=== PATIENT | female | born 1955 | race Caucasian/White ===

== ENCOUNTER 2021-12-27 13:24 | Outpatient (CLI) | payer OTHER, BC, SELFPAY ==
--- NOTE | 2021-12-27 13:33 | XRR_ITS ---
PROCEDURE INFORMATION: Exam: XR Lumbosacral Spine Exam date and time: 12/27/2021 1:37 PM Age: 66 years old Clinical indication: Patient HX: Low back pain that radiates down bi-lat legs. PT states that she gets wore out fast x 2 years but getting worse the past few months. , HX of ovarian cancer TECHNIQUE: Imaging protocol: Radiologic exam of the lumbosacral spine. Views: 4 or 5 views. COMPARISON: MR lumbar spine wo con* [id number] 04/13/2017 3:28 PM FINDINGS: Bones/joints: The lumbar vertebral bodies maintain height. There is a grade 1 degenerative anterolisthesis at L3-L4 and L4-L5 which do not change in flexion or extension. There is multilevel disc degeneration lumbar spine most prominently at L5-S1. There is facet arthropathy at L3-L4 down at L5-S1. No fracture. Soft tissues: No acute soft tissue abnormality. XR/XR lumbar spine min 4V [id number] IMPRESSION: Multilevel degenerative changes. No instability on flexion or extension.
== END 2021-12-27 13:25 | disposition home or self-care (01) ==
LOC: RAD 13:28
PROVIDERS: PCP Nurse Practitioner; Visit Provider Nurse Practitioner Family
DX: M54.50 Low back pain, unspecified (principal)
CPT/HCPCS: 72110

== ENCOUNTER 2022-03-09 15:43 | Emergency (ER) | payer OTHER, SELFPAY ==
[2022-03-09 16:06] VITALS: BMI 35.1
[2022-03-09 16:11] VITALS: BP 98/67; PULSE 90; RESP 18; TEMP 36.7; O2SAT 97
--- NOTE | 2022-03-09 16:11 | ECG_ITS ---
[facility] Test Date: 2022-03-09 Pat Name: Sandra Lemus Department: Room: Gender: Female Supervisor Malted Milk: : 1955 Requested By: Brayden Booker Order Number: [id number] Jhon MD: Jeevan Stinson M.D. Measurements Intervals [place] Rate: 91 P: 64 SC: 213 QRS: -29 QRSD: 102 T: 78 QT: 363 QTc: 448 Interpretive Statements SINUS RHYTHM WITH FIRST DEGREE AV BLOCK ANTEROSEPTAL MYOCARDIAL INFARCTION , OF INDETERMINATE AGE [40+ ms Q WAVE IN V1-V4] Compared to ECG 04/26/2017 21:44:00 First degree AV block now present Sinus tachycardia no longer present Myocardial infarct finding still present Electronically Signed On 03-10-2022 6:24:35 MANAGER FEDERAL by Jeevan Stinson M.D. [id number]
--- NOTE | 2022-03-09 16:13 | XRR_ITS ---
PROCEDURE INFORMATION: Exam: XR Chest Exam date and time: 03/09/2022 5:56 PM Age: 66 years old Clinical indication: Other: Palpitations TECHNIQUE: Imaging protocol: Radiologic exam of the chest. Views: 1 view. COMPARISON: CR XR chest 2V* [id number] 04/14/2019 12:41 PM FINDINGS: Lungs: Mild atelectasis in the right lung base. The lungs are otherwise clear. Pleural spaces: Unremarkable. No pleural effusion. No pneumothorax. Heart/Mediastinum: Unremarkable. No cardiomegaly. Diaphragm: Mild elevation of the right diaphragm. Bones/joints: Mild thoracic curvature. XR/XR chest 1V portable [id number] IMPRESSION: No acute findings.
[2022-03-09 16:24] LABS: Glucose Point of Care 213 mg/dL (70-110)
--- NOTE | 2022-03-09 16:40 | ED_ITS ---
Documented by User: Brayden Rodriguez DO 03/09/22 17:57 HPI - Arrhythmia/Palpitations General: Chief Complaint: Arrhythmia/Palpitations Stated Complaint: abnormal heart Time Seen by Provider: 03/09/22 16:39 Source: patient Mode of arrival: ambulatory History of Present Illness: 66-year-old female who presents to the emergency room with complaint of generalized weakness and heart palpitations. She felt a fluttering sensation feels like it is on and off. She has a history of type 2 diabetes mellitus and history of ovarian cancer no history of any previous coronary disease stroke or arrhythmia. He has had a little bit of shortness of breath with that she has no known history of coronary artery disease all of her symptoms have stopped at this point MD complaint: rapid heart beat, skipped beats and palpitations Onset (ago): hour(s) Duration: intermittent Severity: mild Context: occurred during rest Associated symptoms: Deny anxiety, cough, diaphoresis, muscle cramps, nausea, paresthesias, pre-syncope, sense of impending doom, short of breath, syncope or vomiting Review of Systems Const: Denies: fever(s), chills, fatigue, malaise or diaphoresis ENMT: Denies: throat pain, ear or mastoid pain, nasal discharge or nasal congestion Card: Reports: palpitations and irregular heart rhythm; Denies: chest pain, edema, swelling of feet/ankles, syncope or pre-syncope Resp: Denies: dyspnea, productive cough or non-productive cough GI: Denies: abdominal pain, nausea or vomiting : Denies: flank pain, difficulty voiding, dysuria, urinary frequency or urinary urgency Musc: Denies: neck pain, back pain or muscle cramps Skin/Breast: Denies: rash or pruritus Psych: Denies: anxiety PFS ED PFSH: Medical History (Updated 03/09/22 @ 19:23 by Christian White MD) Obesity Social History (Updated 03/09/22 @ 17:16 by Brayden Rodriguez DO) Smoking and tobacco status: never smoked Alcohol intake: never Physical Exam Const: GENERAL APPEARANCE: cooperative and comfortable GERARDO ENTATION/CONSCIOUSNESS: Yes awake, Yes oriented to person, Yes oriented to place and Yes oriented to time HENMT: COMMON NORMALS: normocephalic, atraumatic and hearing grossly normal bilaterally HEAD & SCALP: normocephalic and atraumatic Resp: COMMON NORMALS: normal respiratory effort, No retractions, No use of accessory muscles and clear to auscultation bilaterally AUSCULTATION: clear to auscultation bilaterally Cardio: COMMON NORMALS: regular rate, regular rhythm and No murmurs present (Cardio) RATE: regular rate RHYTHM: regular rhythm GI: COMMON NORMALS: Soft to palpation and No hepatosplenomegaly present AUSCULTATION: Yes normoactive bowel sounds PALPATION: Yes Soft to palpation, No Tenderness to palpation present (GI), No Guarding due to palpation present (GI) and Yes No hepatosplenomegaly present Extremity: COMMON NORMALS: normal to inspection, capillary refill normal, no clubbing, cyanosis or edema, no calf tenderness and no pedal edema Neuro: SENSORIUM/ORIENTATION: Yes oriented to person, Yes oriented to place and Yes oriented to time Skin: COMMON NORMALS: no rashes or lesions noted GENERAL SKIN EXAM: no rashes or lesions noted Course Vital Signs: Vital signs: Vital Signs Temperature 98.0 F 03/09/22 16:11 Pulse Rate 83 03/09/22 18:41 Respiratory Rate 15 03/09/22 18:41 Blood Pressure 120/64 03/09/22 18:41 Pulse Oximetry 94 03/09/22 18:41 Oxygen Delivery Me thod 03/09/22 18:41 MDM - Arrhythmia/Palpitations Medical Decision Making Care signed out to Dr. White at change of shift. See final notes for diagnosis and disposition. Medical Records I reviewed the patient's medical records. Lab Data I reviewed the patient's lab results. 03/09/22 17:15 03/09/22 17:15 Radiology Impressions Chest X-Ray 03/09/22 16:13 IMPRESSION: No acute findings. Laboratory Results WBC 13.9 10^3/uL (4.0-10.0) H 03/09/22 17:15 RBC 5.32 10^6/uL (4.1-5.3) H 03/09/22 17:15 Hgb 15.7 g/dL (11.5-15.3) H 03/09/22 17:15 Hct 47.4 % (37.0-47.0) H 03/09/22 17:15 MCV 89.1 fl (81-99) 03/09/22 17:15 MCH 29.5 pg (28.0-34.0) 03/09/22 17:15 MCHC 33.1 g/dL (30.0-36.0) 03/09/22 17:15 RDW 12.8 % (12.1-15.1) 03/09/22 17:15 Plt Count 303 10^3/cmm (130-400) 03/09/22 17:15 MPV 11.2 fL (7.4-10.4) H 03/09/22 17:15 Neut % (Auto) 72.7 % 03/09/22 17:15 Lymph % (Auto) 17.6 % 03/09/22 17:15 Preble % (Auto) 7.0 % 03/09/22 17:15 Eos % (Auto) 1.4 % 03/09/22 17:15 Baso % (Auto) 0.7 % 03/09/22 17:15 Neut # (Auto) 10.12 10^3/uL (1.8-7.7) H 03/09/22 17:15 Lymph # (Auto) 2.5 10^3/uL (0.8-4.8) 03/09/22 17:15 Preble # (Auto) 1.0 10^3/uL (0.2-0.9) H 03/09/22 17:15 Eos # (Auto) 0.2 10^3/uL (0.0-0.8) 03/09/22 17:15 Baso # (Auto) 0.1 10^3/uL (0.0-0.1) 03/09/22 17:15 Nucleated RBC % (auto) 0 % 03/09/22 17:15 Nucleated RBCs # 0.0 /100WBC 03/09/22 17:15 Sodium 138 mmol/L (136-145) 03/09/22 17:15 Potassium 4.5 mmol/L (3.5-5.1) 03/09/22 17:15 Chloride 100 mmol/L (98-107) 03/09/22 17:15 Carbon Dioxide 26 mmol/L (22-29) 03/09/22 17:15 Anion Gap 16.5 (5-19) 03/09/22 17:15 BUN 26 mg/dL (8-23) H 03/09/22 17:15 Creatinine 1.2 mg/dL (0.5-0.9) H 03/09/22 17:15 GFR Calculation 45.2 mL/min (90-130) L 03/09/22 17:15 Glucose 211 mg/dL (65-115) H 03/09/22 17:15 POC Glucose 213 mg/dL (70-110) H 03/09/22 16:20 Calculated Osmolality 297 mOsm/kg (285-295) H 03/09/22 17:15 Calcium 10.3 mg/dL (8.5-10.5) 03/09/22 17:15 Magnesium 2.3 mg/dL (1.7-2.3) 03/09/22 17:15 Total Bilirubin 0.3 mg/dL (0.15-1.2) 03/09/22 17:15 AST 28 U/L (0-32) 03/09/22 17:15 ALT 34 U/L (0-33) H 03/09/22 17:15 Alkaline Phosphatase 135 U/L (35-105) H 03/09/22 17:15 Troponin T Baseline 30 ng/L (0-10) H 03/09/22 17:15 Troponin T 120 Minute 27.90 ng/L (0-10) H 03/09/22 18:30 Delta Troponin T -2.10 ABS# (0-10) L 03/09/22 18:30 NT-Pro-B Natriuret Pep 807 pg/mL (0-125) H 03/09/22 17:15 Total Protein 7.4 g/dL (6.6-8.7) 03/09/22 17:15 Albumin 3.9 g/dL (3.5-5.2) 03/09/22 17:15 Globulin 3.5 g/dL (1.3-4.6) 03/09/22 17:15 TSH 1.84 uIU/mL (0.27-4.20) 03/09/22 17:15 Discharge Plan Discharge Patient Disposition: Home Clinical Impression: Palpitations Condition: Stable Prescriptions: No Action atorvastatin 10 mg tablet 10 mg PO DAILY irbesartan 150 mg tablet 150 mg PO DAILY Novolog Flexpen U-100 Insulin 100 unit/mL (3 mL) insulin pen See Rx Instructions .ROUTE .COMPLEX Rx Instructions: per sliding scale Levemir FlexTouch U-100 Insuln 100 unit/mL (3 mL) insulin pen 50 unit SUBCUT BID Trulicity 3 mg/0.5 mL pen injector 3 mg SUBCUT Q7D Rx Instructions: On Sundays Discharge Orders: Discharge ED (Routine); Ordered 03/09/22 Ordered By: Christian White Referrals: Fields,NOLA Hale [Primary Care Provider] - 1-3 days Discharge Diet: Advance as tolerated Discharge Activity: Resume usual activity Patient Instructions: Heart Palpitations (ED) Coding Level of Care Code ED Landfill Gas Technician for Chg Fwd Exam Detailed Documented by User: Christian White MD 03/09/22 19:29 HPI - Arrhythmia/Palpitations General: Chief Complaint: Arrhythmia/Palpitations Stated Complaint: abnormal heart Time Seen by Provider: 03/09/22 16:39 [facility] ED PFSH: Medical History (Updated 03/09/22 @ 19:23 by Christian White MD) Obesity Social History (Updated 03/09/22 @ 17:16 by Brayden Rodriguez DO) Smoking and tobacco status: never smoked Alcohol intake: never Course Vital Signs: Vital signs: Vital Signs Temperature 98.0 F 03/09/22 16:11 Pulse Rate 83 03/09/22 18:41 Respiratory Rate 15 03/09/22 18:41 Blood Pressure 120/64 03/09/22 18:41 Pulse Oximetry 94 03/09/22 18:41 Oxygen Delivery Me thod 03/09/22 18:41 MDM - Arrhythmia/Palpitations Medical Decision Making Care signed out to Dr. White at change of shift. See final notes for diagnosis and disposition. Patient presents with palpitations she feels much improved her heart rate here has been normal initial repeat troponins are negative I spoke to her she is to follow-up with PCP in 2 to 4 days and return if worsening she understands agrees to plan. Lab Data 03/09/22 17:15 03/09/22 17:15 Radiology Impressions Chest X-Ray 03/09/22 16:13 IMPRESSION: No acute findings. Laboratory Results WBC 13.9 10^3/uL (4.0-10.0) H 03/09/22 17:15 RBC 5.32 10^6/uL (4.1-5.3) H 03/09/22 17:15 Hgb 15.7 g/dL (11.5-15.3) H 03/09/22 17:15 Hct 47.4 % (37.0-47.0) H 03/09/22 17:15 MCV 89.1 fl (81-99) 03/09/22 17:15 MCH 29.5 pg (28.0-34.0) 03/09/22 17:15 MCHC 33.1 g/dL (30.0-36.0) 03/09/22 17:15 RDW 12.8 % (12.1-15.1) 03/09/22 17:15 Plt Count 303 10^3/cmm (130-400) 03/09/22 17:15 MPV 11.2 fL (7.4-10.4) H 03/09/22 17:15 Neut % (Auto) 72.7 % 03/09/22 17:15 Lymph % (Auto) 17.6 % 03/09/22 17:15 Preble % (Auto) 7.0 % 03/09/22 17:15 Eos % (Auto) 1.4 % 03/09/22 17:15 Baso % (Auto) 0.7 % 03/09/22 17:15 Neut # (Auto) 10.12 10^3/uL (1.8-7.7) H 03/09/22 17:15 Lymph # (Auto) 2.5 10^3/uL (0.8-4.8) 03/09/22 17:15 Preble # (Auto) 1.0 10^3/uL (0.2-0.9) H 03/09/22 17:15 Eos # (Auto) 0.2 10^3/uL (0.0-0.8) 03/09/22 17:15 Baso # (Auto) 0.1 10^3/uL (0.0-0.1) 03/09/22 17:15 Nucleated RBC % (auto) 0 % 03/09/22 17:15 Nucleated RBCs # 0.0 /100WBC 03/09/22 17:15 Sodium 138 mmol/L (136-145) 03/09/22 17:15 Potassium 4.5 mmol/L (3.5-5.1) 03/09/22 17:15 Chloride 100 mmol/L (98-107) 03/09/22 17:15 Carbon Dioxide 26 mmol/L (22-29) 03/09/22 17:15 Anion Gap 16.5 (5-19) 03/09/22 17:15 BUN 26 mg/dL (8-23) H 03/09/22 17:15 Creatinine 1.2 mg/dL (0.5-0.9) H 03/09/22 17:15 GFR Calculation 45.2 mL/min (90-130) L 03/09/22 17:15 Glucose 211 mg/dL (65-115) H 03/09/22 17:15 POC Glucose 213 mg/dL (70-110) H 03/09/22 16:20 Calculated Osmolality 297 mOsm/kg (285-295) H 03/09/22 17:15 Calcium 10.3 mg/dL (8.5-10.5) 03/09/22 17:15 Magnesium 2.3 mg/dL (1.7-2.3) 03/09/22 17:15 Total Bilirubin 0.3 mg/dL (0.15-1.2) 03/09/22 17:15 AST 28 U/L (0-32) 03/09/22 17:15 ALT 34 U/L (0-33) H 03/09/22 17:15 Alkaline Phosphatase 135 U/L (35-105) H 03/09/22 17:15 Troponin T Baseline 30 ng/L (0-10) H 03/09/22 17:15 Troponin T 120 Minute 27.90 ng/L (0-10) H 03/09/22 18:30 Delta Troponin T -2.10 ABS# (0-10) L 03/09/22 18:30 NT-Pro-B Natriuret Pep 807 pg/mL (0-125) H 03/09/22 17:15 Total Protein 7.4 g/dL (6.6-8.7) 03/09/22 17:15 Albumin 3.9 g/dL (3.5-5.2) 03/09/22 17:15 Globulin 3.5 g/dL (1.3-4.6) 03/09/22 17:15 TSH 1.84 uIU/mL (0.27-4.20) 03/09/22 17:15 Discharge Plan Discharge Patient Disposition: Home Clinical Impression: Palpitations Condition: Stable Prescriptions: No Action atorvastatin 10 mg tablet 10 mg PO DAILY irbesartan 150 mg tablet 150 mg PO DAILY Novolog Flexpen U-100 Insulin 100 unit/mL (3 mL) insulin pen See Rx Instructions .ROUTE .COMPLEX Rx Instructions: per sliding scale Levemir FlexTouch U-100 Insuln 100 unit/mL (3 mL) insulin pen 50 unit SUBCUT BID Trulicity 3 mg/0.5 mL pen injector 3 mg SUBCUT Q7D Rx Instructions: On Sundays Discharge Orders: Discharge ED (Routine); Ordered 03/09/22 Ordered By: Christian White Referrals: Alexia Fields FNP [Primary Care Provider] - 1-3 days Discharge Diet: Advance as tolerated Discharge Activity: Resume usual activity Patient Instructions: Heart Palpitations (ED) Coding Level of Care Code ED Landfill Gas Technician for Michaelleg Fwd Exam Detailed
[2022-03-09 17:29] LABS: Basophils # 0.1 10^3/uL (0.0-0.1); Basophils % 0.7 %; Eosinophils # 0.2 10^3/uL (0.0-0.8); Eosinophils % 1.4 %; Hematocrit 47.4 % (37.0-47.0); Hemoglobin 15.7 g/dL (11.5-15.3); Lymphocytes # 2.5 10^3/uL (0.8-4.8); Lymphocytes % 17.6 %; Mean Corpuscular HGB Conc 33.1 g/dL (30.0-36.0); Mean Corpuscular Hemoglobin 29.5 pg (28.0-34.0); Mean Corpuscular Volume 89.1 fl (81-99); Mean Platelet Volume 11.2 fL (7.4-10.4); Neutrophils # 10.12 10^3/uL (1.8-7.7); Neutrophils % 72.7 %; Nucleated Red Blood Cells % 0 %; Platelet Count 303 10^3/cmm (130-400); Red Blood Count 5.32 10^6/uL (4.1-5.3); Red Cell Distribution Width 12.8 % (12.1-15.1); White Blood Count 13.9 10^3/uL (4.0-10.0)
[2022-03-09 17:54] LABS: Troponin(5th) Baseline 30 ng/L (0-10)
[2022-03-09 17:59] LABS: Alanine Aminotransferase 34 U/L (0-33); Albumin Level 3.9 g/dL (3.5-5.2); Alkaline Phosphatase 135 U/L (35-105); Anion Gap 16.5 (5-19); Aspartate Amino Transferase 28 U/L (0-32); Blood Urea Nitrogen 26 mg/dL (8-23); Calcium 10.3 mg/dL (8.5-10.5); Carbon Dioxide 26 mmol/L (22-29); Chloride 100 mmol/L (98-107); Globulin 3.5 g/dL (1.3-4.6); Glomerular Filtration Rate 45.2 mL/min (90-130); Glucose 211 mg/dL (65-115); Magnesium 2.3 mg/dL (1.7-2.3); NT Pro B Type Natriuretic Pept 807 pg/mL (0-125); Osmolality Calculated 297 mOsm/kg (285-295); Potassium 4.5 mmol/L (3.5-5.1); Sodium 138 mmol/L (136-145); Thyroid Stimulating Hormone 1.84 uIU/mL (0.27-4.20); Total Bilirubin 0.3 mg/dL (0.15-1.2); Total Protein 7.4 g/dL (6.6-8.7)
[2022-03-09 18:00] VITALS: BP 104/65; PULSE 83; RESP 14; O2SAT 93
[2022-03-09 18:41] VITALS: BP 120/64; PULSE 83; RESP 15; O2SAT 94
--- NOTE | 2022-03-09 18:56 | ECG_ITS ---
[facility] Test Date: 2022-03-09 Pat Name: Sandra Lemus Department: Room: Gender: Female Support Coordinator: : 1955 Requested By: Martinez Zurita Order Number: [id number] Jhon MD: Jeevan Stinson M.D. Measurements Intervals [place] Rate: 84 P: 58 DE: 226 QRS: 1 QRSD: 96 T: 47 QT: 390 QTc: 463 Interpretive Statements SINUS RHYTHM WITH FIRST DEGREE AV BLOCK ANTEROSEPTAL MYOCARDIAL INFARCTION , OF INDETERMINATE AGE [40+ ms Q WAVE IN V1-V4] Compared to ECG 03/09/2022 16:02:08 No significant changes Electronically Signed On 03-10-2022 6:31:43 REFERRAL CLERK by Jeevan Stinson M.D. [id number]
[2022-03-09 20:10] VITALS: BP 150/82; PULSE 84; RESP 16; O2SAT 95
== END 2022-03-09 19:55 | disposition home or self-care (01) ==
PROVIDERS: Emergency Medicine; Emergency Provider Emergency Medicine; PCP Nurse Practitioner Family
DX: R00.2 Palpitations (principal); Z79.85 Long-term (current) use of injectable non-insulin antidiabetic drugs; Z79.4 Long term (current) use of insulin
CPT/HCPCS: 36416; 71045; 80053; 82962; 83735; 83880; 84443; 84484; 85025; 93005; 99285

== ENCOUNTER 2022-04-20 14:34 | Outpatient (CLI) | payer OTHER, SELFPAY ==
--- NOTE | 2022-04-20 14:52 | XR_ITS ---
WS: [id number] Right foot, 3 views, 04/20/2022 Clinical Data: S91.109A - Unspecified open wound of unspecified toe(s) w... Comparison: None. Findings: No fractures or dislocations are seen. No bone destruction or erosion is noted. There is a bunion at the head of the right first metatarsal.. There is no evidence of osteomyelitis. No subcutaneous ulcer or abscess is seen. There is a plantar s pur. XR/XR foot RT min 3V* [id number] Impression: Bunion at the head of the right first metatarsal.
== END 2022-04-20 14:35 | disposition home or self-care (01) ==
LOC: RAD 14:36
PROVIDERS: PCP Nurse Practitioner Family; Visit Provider Surgery
DX: S91.101A Unspecified open wound of right great toe without damage to nail, initial encounter (principal); X58.XXXA Exposure to other specified factors, initial encounter; M21.611 Bunion of right foot
CPT/HCPCS: 73630

== ENCOUNTER → 2022-04-26 13:50 | Outpatient (BNVA) | payer MEDICARE, SELFPAY | PROVIDERS: PCP Nurse Practitioner Family; Visit Provider Thoracic Surgery (Cardiothoracic Vascular Surgery) | DX: I96 Gangrene, not elsewhere classified (principal); E11.621 Type 2 diabetes mellitus with foot ulcer; L97.511 Non-pressure chronic ulcer of other part of right foot limited to breakdown of skin | CPT/HCPCS: 11042 ==

== ENCOUNTER → 2022-05-03 15:16 | Outpatient (BNVA) | payer MEDICARE, SELFPAY | PROVIDERS: PCP Nurse Practitioner Family; Visit Provider Thoracic Surgery (Cardiothoracic Vascular Surgery) | DX: E11.621 Type 2 diabetes mellitus with foot ulcer (principal); L97.511 Non-pressure chronic ulcer of other part of right foot limited to breakdown of skin | CPT/HCPCS: 97597 ==

== ENCOUNTER → 2022-05-10 11:19 | Outpatient (BNVA) | payer MEDICARE, SELFPAY | PROVIDERS: PCP Nurse Practitioner Family; Visit Provider Thoracic Surgery (Cardiothoracic Vascular Surgery) | DX: E11.621 Type 2 diabetes mellitus with foot ulcer (principal); L97.511 Non-pressure chronic ulcer of other part of right foot limited to breakdown of skin | CPT/HCPCS: 97597 ==

== ENCOUNTER → 2022-05-31 15:02 | Outpatient (BNVA) | payer MEDICARE, SELFPAY | PROVIDERS: PCP Nurse Practitioner Family; Visit Provider Thoracic Surgery (Cardiothoracic Vascular Surgery) | DX: Z09 Encounter for follow-up examination after completed treatment for conditions other than malignant neoplasm (principal) | CPT/HCPCS: 99212; A6210 ==

== ENCOUNTER → 2022-06-05 14:22 | Outpatient (BNVA) | payer MEDICARE, SELFPAY | PROVIDERS: Visit Provider Family Medicine | DX: E78.5 Hyperlipidemia, unspecified (principal); N18.31 Chronic kidney disease, stage 3a; E66.9 Obesity, unspecified; E11.9 Type 2 diabetes mellitus without complications; Z79.4 Long term (current) use of insulin; I10 Essential (primary) hypertension; M54.9 Dorsalgia, unspecified; G56.20 Lesion of ulnar nerve, unspecified upper limb; G89.29 Other chronic pain; Z68.36 Body mass index [BMI] 36.0-36.9, adult | CPT/HCPCS: 80053; 80061; 83036; 84439; 84443; 85025 ==

== ENCOUNTER → 2022-06-20 13:32 | Outpatient (BNVA) | payer MEDICARE, SELFPAY | PROVIDERS: Referring Provider Family Medicine; Visit Provider Orthopaedic Surgery | DX: R20.0 Anesthesia of skin (principal); R20.2 Paresthesia of skin | CPT/HCPCS: 99203 ==

== ENCOUNTER 2022-06-29 11:31 | Outpatient (RCR) | payer MEDICARE, SELFPAY | END 2022-07-21 23:59 | disposition home or self-care (01) | LOC: SPT 11:31 | PROVIDERS: Visit Provider Family Medicine | DX: M54.9 Dorsalgia, unspecified (principal); G89.29 Other chronic pain | CPT/HCPCS: 97110; 97161 ==

== ENCOUNTER 2022-07-22 06:00 | Outpatient (RCR) | payer MEDICARE, SELFPAY | END 2022-08-08 23:59 | disposition home or self-care (01) | LOC: SPT 06:00 | PROVIDERS: Visit Provider Family Medicine | DX: M54.9 Dorsalgia, unspecified (principal); G89.29 Other chronic pain | CPT/HCPCS: 97110 ==

== ENCOUNTER → 2022-07-24 13:10 | Outpatient (BNVA) | payer MEDICARE, SELFPAY | PROVIDERS: Referring Provider Orthopaedic Surgery; Visit Provider Specialist | DX: G56.02 Carpal tunnel syndrome, left upper limb (principal); G56.22 Lesion of ulnar nerve, left upper limb | CPT/HCPCS: 95908; 95909 ==

== ENCOUNTER → 2022-09-04 14:08 | Outpatient (BNVA) | payer MEDICARE, SELFPAY | PROVIDERS: PCP Family Medicine; Visit Provider Specialist | DX: G56.22 Lesion of ulnar nerve, left upper limb (principal); M54.2 Cervicalgia; R26.89 Other abnormalities of gait and mobility | CPT/HCPCS: 99203 ==

== ENCOUNTER → 2022-09-12 10:26 | Outpatient (BNVA) | payer MEDICARE, SELFPAY | PROVIDERS: PCP Family Medicine; Referring Provider Family Medicine; Visit Provider Anesthesiology Pain Medicine | DX: G89.29 Other chronic pain (principal); M51.16 Intervertebral disc disorders with radiculopathy, lumbar region; G56.20 Lesion of ulnar nerve, unspecified upper limb; M54.2 Cervicalgia | CPT/HCPCS: 99205 ==

== ENCOUNTER 2022-09-20 10:54 | Outpatient (RCR) | payer MEDICARE, SELFPAY | END 2022-09-20 23:59 | disposition home or self-care (01) | LOC: SOT 10:54 | PROVIDERS: PCP Family Medicine; Visit Provider Specialist | DX: G56.20 Lesion of ulnar nerve, unspecified upper limb (principal); G56.02 Carpal tunnel syndrome, left upper limb | CPT/HCPCS: 97110; 97166; 97530 ==

== ENCOUNTER → 2022-09-21 09:01 | Outpatient (BNVA) | payer MEDICARE, SELFPAY | PROVIDERS: PCP Family Medicine; Visit Provider Anesthesiology Pain Medicine | DX: G89.29 Other chronic pain (principal); M79.18 Myalgia, other site; M51.16 Intervertebral disc disorders with radiculopathy, lumbar region; G56.20 Lesion of ulnar nerve, unspecified upper limb | CPT/HCPCS: 20553; 99214; J1030; J3490 ==

== ENCOUNTER 2022-09-22 13:02 | Outpatient (CLI) | payer MEDICARE, SELFPAY ==
--- NOTE | 2022-09-22 13:15 | USCV_ITS ---
Sandra Lemus Age: 67 Gender: F : 1955 Exam Date: 09/22/2022 13:20 Ordering Phys: Jose Bah MD Technologist: [place] [facility] [place]: volume overload BP: 137 / 75 HR: 86 Rhythm: Sinus Technical Quality: Adequate MEASUREMENTS (Male / Female) Normal Values 2D ECHO LV Diastolic Diameter PLAX 4.7 cm 4.2 - 5.9 / 3.9 - 5.3 cm LV Systolic Diameter PLAX 3.1 cm IVS Diastolic Thickness 1.2 cm 0.6 - 1.0 / 0.6 - 0.9 cm IVS Systolic Thickness 1.6 cm LVPW Diastolic Thickness 1.1 cm 0.6 - 1.0 / 0.6 - 0.9 cm LVPW Systolic Thickness 1.5 cm LVOT Diameter 2.3 cm LV Ejection Fraction 2D Teich 63.5 % LV Ejection Fraction MOD 2C 79.4 % LV Ejection Fraction 2C AL 79.5 % LA Diameter 3.9 cm IVC Diameter 2.1 cm M-MODE Aortic Annulus Diameter 3.0 cm LA Ao Ratio MM 1.5 DOPPLER AV Peak Velocity 146.0 cm/s LVOT Peak Velocity 84.0 cm/s AV Area Cont Eq vti 2.2 cm squared AV Area Cont Eq pk 2.4 cm squared MV E' Velocity 10.0 cm/s TR Peak Velocity 286.3 cm/s TR Peak Gradient 32.8 mmHg TV Peak E Velocity 97.0 cm/s Right Atrial Pressure 3.0 mmHg Pulmonary Artery Systolic Pressu 35.8 mmHg RV Acceleration Time 0.1 s FINDINGS Left Ventricle Left ventricle is normal in size. LV systolic function is normal with EF of 60 to 65%. No regional wall motion abnormalities are seen. Right Ventricle Normal in size and function Right Atrium Normal in size Left Atrium Normal in size Mitral Valve Structurally normal mitral valve. Mild mitral regurgitation. Aortic Valve Aortic valve is thickened. No significant stenosis. Tricuspid Valve Mild tricuspid regurgitation. Insufficient TR jet to calculate RVSP. Pulmonic Valve Pericardium Normal Aorta Normal in size IVC Not well-visualized CONCLUSIONS LV systolic function is normal with EF of 60-65% Mild mitral regurgitation Mild tricuspid regurgitation No comparison studies are available Jeevan Stinson MD (Electronically Signed) Final Date: 30 September 2022 13:47 S
--- NOTE | 2022-09-22 14:30 | MR_ITS ---
WS: [id number] MRI CERVICAL SPINE NONCONTRAST TECHNIQUE: Sagittal T1, T2 and STIR imaging. Axial T2, gradient, and fiesta imaging. CLINICAL INFORMATION: G56.02 - Carpal tunnel syndrome, left upper limb COMPARISON: None. 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 Straightening of the normal cervical lordosis with slight reversal. Disc bulging worse at C5-C6. Smal l disc protrusions C7-T1, T1-T2, T2-T3 and T3-T4. C2-C3: Mild facet arthropathy. Mild bilateral bony foraminal narrowing. Spinal canal is patent. C3-C4: Minimal disc bulging. Mild central canal stenosis. Moderate LEFT facet arthropathy. Mild LEFT greater than RIGHT bony foraminal narrowing. C4-C5: Shallow central protrusion with slight contact of the cervical cord. Mild central canal stenos is. Moderate LEFT greater than RIGHT bony foraminal narrowing. Moderate LEFT facet arthropathy. C5-C6: Disc osteophyte complex with slight indentation on cervical cord. Moderate central canal steno sis. Moderate facet arthropathy. Moderate bilateral bony foraminal narrowing. C6-C7: No significant disc bulging. Moderate RIGHT and mild LEFT bony foraminal narrowing. Mild facet arthropathy. Spinal canal is patent. C7-T1: Shallow central disc protrusion. Mild central canal stenosis. Moderate RIGHT and mild LEFT bon y foraminal narrowing. Visualized brain stem structures: Normal. Prevertebral soft tissues: Normal. MR/MR cervical spin wo con* [id number] IMPRESSION: 1. Straightening with slight reversal normal cervical lordosis. Congenital geoffrey tral canal narrowing contributes to stenosis. 2. Moderate central canal stenosis C5-C6 with mild disc bulging and slight con tact of the cervical cord. 3. Mild central canal stenosis C3-C4 C4-C5 and C7-T1 with small disc protrusio ns. 4. Tiny disc protrusions in the upper thoracic spine more prominent at RIGHT T 2-T3 with mild central canal stenosis. 5. Multilevel bony foraminal narrowing described above worse at bilateral C4-C 5, bilateral C5-C6, RIGHT C6-C7 and RIGHT C7-T1.
== END 2022-09-22 13:03 | disposition home or self-care (01) ==
LOC: RAD 13:05
PROVIDERS: PCP Family Medicine; Visit Provider Family Medicine
DX: G56.02 Carpal tunnel syndrome, left upper limb (principal); G56.20 Lesion of ulnar nerve, unspecified upper limb; M48.02 Spinal stenosis, cervical region; M50.31 Other cervical disc degeneration, high cervical region; M25.78 Osteophyte, vertebrae; R60.0 Localized edema; I08.1 Rheumatic disorders of both mitral and tricuspid valves
CPT/HCPCS: 72141; 83036; 93306

== ENCOUNTER → 2022-11-29 15:16 | Outpatient (BNVA) | payer MEDICARE, SELFPAY | PROVIDERS: PCP Family Medicine; Visit Provider Specialist | DX: G56.22 Lesion of ulnar nerve, left upper limb (principal); G56.02 Carpal tunnel syndrome, left upper limb; M48.02 Spinal stenosis, cervical region | CPT/HCPCS: 95910; 99214 ==

== ENCOUNTER → 2022-12-21 09:33 | Outpatient (BNVA) | payer MEDICARE, SELFPAY | PROVIDERS: PCP Family Medicine; Visit Provider Anesthesiology Pain Medicine | DX: G89.29 Other chronic pain; G56.20 Lesion of ulnar nerve, unspecified upper limb; M51.16 Intervertebral disc disorders with radiculopathy, lumbar region; M48.02 Spinal stenosis, cervical region | CPT/HCPCS: 99214 ==

== ENCOUNTER → 2023-01-03 12:09 | Outpatient (BNVA) | payer MEDICARE, SELFPAY | PROVIDERS: PCP Family Medicine; Visit Provider Family Medicine | DX: K21.9 Gastro-esophageal reflux disease without esophagitis (principal); N18.31 Chronic kidney disease, stage 3a; E11.9 Type 2 diabetes mellitus without complications; Z13.9 Encounter for screening, unspecified; I10 Essential (primary) hypertension; M54.9 Dorsalgia, unspecified; G89.29 Other chronic pain; G56.20 Lesion of ulnar nerve, unspecified upper limb; Z68.37 Body mass index [BMI] 37.0-37.9, adult; E78.5 Hyperlipidemia, unspecified; G56.02 Carpal tunnel syndrome, left upper limb | CPT/HCPCS: 80053; 80061; 83036; 84439; 84443; 85025 ==

== ENCOUNTER → 2023-02-01 13:21 | Outpatient (BNVA) | payer MEDICARE, SELFPAY | PROVIDERS: PCP Family Medicine; Referring Provider Specialist; Visit Provider Student in an Organized Health Care Education/Training Program | DX: G56.02 Carpal tunnel syndrome, left upper limb (principal); G56.22 Lesion of ulnar nerve, left upper limb | CPT/HCPCS: 99214 ==

== ENCOUNTER → 2023-03-22 09:28 | Outpatient (BNVA) | payer MEDICARE, SELFPAY | PROVIDERS: PCP Family Medicine; Visit Provider Anesthesiology Pain Medicine | DX: G89.29 Other chronic pain; G56.20 Lesion of ulnar nerve, unspecified upper limb; M51.16 Intervertebral disc disorders with radiculopathy, lumbar region; M48.02 Spinal stenosis, cervical region | CPT/HCPCS: 99214 ==

== ENCOUNTER 2023-03-29 08:41 | Day surgery (SDC) | payer MEDICARE, SELFPAY ==
[2023-03-29] VITALS (10 sets, daily range): BP systolic 143–179; BP diastolic 81–92; PULSE 72–78; RESP 6–16; TEMP 36.4–36.7; O2SAT 92–96; BMI 34.3
--- NOTE | 2023-03-29 09:49 | W.PM.OPSFHP ---
Same Day Surgery H&P Indication for Procedure/HPI DATE OF PROCEDURE: March 29, 2023 CHIEF COMPLAINT/INDICATIONFOR SURGICAL PROCEDURE: Left carpal tunnel syndrome left cubital tunnel syndrome PREOP DIAGNOSIS: Left carpal tunnel syndrome left cubital tunnel syndrome PLANNED PROCEDURE: Operation Date: 03/29/23 10:10 Proposed Procedures p Left Carpal Tunnel Release(Left) - Maurice Flores DO s left Cubital Tunnel Release(Left) - Maurice Flores DO s Possible left Ulnar Nerve Transposition(Left) - Maurice Flores DO Medications/Allergies* Home Medications Medication Instructions Recorded Confirmed Type insulin aspart U-100 100 unit/mL See Rx Instructions .Route .COMPLEX 03/09/22 03/29/23 History (3 mL) subcutaneous pen (Novolog FlexPen U-100 Insulin aspart) irbesartan 150 mg tablet 150 mg PO DAILY 03/09/22 03/29/23 History insulin detemir U-100 100 unit/mL 55 unit SUBCUT BID 07/03/22 03/22/23 History (3 mL) subcutaneous pen (Levemir FlexTouch U-100 Insulin) Marine Phytoplankton 250 mg PO DAILY 10/04/22 03/22/23 History magnesium 250 mg tablet 250 mg PO BID 10/04/22 03/29/23 History potassium 99 mg tablet 99 mg PO DAILY 10/04/22 03/28/23 History urivar 1 cap PO DAILY bladder support 10/04/22 03/22/23 History Allergies/Adverse Reactions Allergy/AdvReac Type Severity Reaction Status Date / Time sitagliptin [From Januvia] Allergy Unknown Unknown Verified 03/22/23 09:44 Pertinent History/Comorbid Conditions* Medical History (Updated 02/17/23 @ 12:52 by Maurice Flores DO) Squamous cell carcinoma of skin Nephrolithiasis History of ovarian cancer Chronic back pain Stage 3a chronic kidney disease (CKD) HLD (hyperlipidemia) Insulin dependent diabetes mellitus Essential hypertension Obesity Surgical History (Updated 06/05/22 @ 14:03 by Jose Bah MD) H/O: hysterectomy Social History Smoking and tobacco/nicotine status: never used tobacco/nicotine Second hand smoke exposure: No Alcohol intake: never Substance/Drug Use: never Caregiver/support person: No Lives independently: No Household members: spouse Marital status: Number of children: 1 service: No Current occupational status: unemployed Current occupational exposures/hazards: No Pets and animals: No Do you think of yourself as: Straight/Heterosexual Current gender identity: Female Pertinent Exam Findings alert, oriented x 3, operative site marked and procedure specific exam findings Positive Tinel's and positive elbow flexion test at the left elbow Positive Tinel's, positive Phalen's, positive median nerve compression test of the left wrist Mild intrinsic weakness noted, thenar weakness noted no significant thenar or intrinsic atrophy appreciated Recommendations Surgery/Procedure today Other Plans: Plan to proceed to the OR today for left carpal tunnel release, left cubital tunnel release with possible ulnar nerve transposition. Understandings and answered procedure risk benefits complication alternatives of surgery elects proceed with surgical intervention all questions answered. Coding Level of Care Code Acute Code for g Jamee
[2023-03-29 10:09] LABS: Glucose Point of Care 168 mg/dL (70-110)
[2023-03-29] MEDS: acetaminophen 1,000 MG/100 ML PIGGYBACK 400 MG IV (10:14)
[2023-03-29] MEDS: ketorolac 30 mg/mL INJ IVP (10:28)
--- NOTE | 2023-03-29 10:40 | ANES.PREANE2 ---
Pre-Anesthetic Assessment Height/Weight: Height 1.6 m Weight 88 kg Temp Pulse Resp BP Pulse Ox O2 Del Method 97.5 F L 75 16 165/87 96 Room Air 03/29/23 09:17 03/29/23 09:17 03/29/23 09:17 03/29/23 09:17 03/29/23 09:17 03/29/23 09:17 Preop Diagnosis: Left carpal tunnel syndrome left cubital tunnel syndrome Operation Date: 03/29/23 10:10 Proposed Procedures p Left Carpal Tunnel Release(Left) - Maurice Mark, DO s left Cubital Tunnel Release(Left) - Maurice Barton, DO s Possible left Ulnar Nerve Transposition(Left) - Maurice Mark, DO Familial anesthetic complications: none Was Beta Omaira taken within 24 hours: N/A Was Clonidine taken within 24 hours: N/A Last intake: Intake Last Liquid Date 03/28/23 Last Liquid Time 23:55 Last Solid Date 03/28/23 Last Solid Time 22:30 Social No alcohol and No tobacco Exam alert, oriented x 3, clear to auscultation bilaterally and regular rate & rhythm Airway Submandibular: within normal limits Cervical ROM: within normal limits Mallampati: Class II Dentition: caps Comments: Comments: Missing some Pulmonary Chronic Obstructive Pulmonary Disease CV/HEM Hypertension GI Gastroesophageal Reflux Disease Metabolic Diabetes Mellitus Anesthetic Plan ASA status: 2 Anesthesia: General Medications/Allergies Home Medications Medication Instructions Recorded Confirmed Last Taken Type insulin aspart U-100 100 unit/mL See Rx Instructions .Route .COMPLEX 03/09/22 03/29/23 03/28/23 22:00 History (3 mL) subcutaneous pen (Novolog FlexPen U-100 Insulin aspart) irbesartan 150 mg tablet 150 mg PO DAILY 03/09/22 03/29/23 03/28/23 History insulin detemir U-100 100 unit/mL 55 unit SUBCUT BID 07/03/22 03/22/23 03/28/23 History (3 mL) subcutaneous pen (Levemir FlexTouch U-100 Insulin) semaglutide 2 mg/dose (8 mg/3 mL) 2 mg (0.75 mL) SUBCUT .weekly #3 mL 08/17/22 03/22/23 03/18/23 Rx subcutaneous pen injector (Ozempic) Marine Phytoplankton 250 mg PO DAILY 0603/22/23 03/28/23 History magnesium 250 mg tablet 250 mg PO BID 10/04/22 03/29/23 03/21/23 History potassium 99 mg tablet 99 mg PO DAILY 10/04/22 03/28/23 Unknown History urivar 1 cap PO DAILY bladder support 10/04/22 03/22/23 Unknown History ezetimibe 10 mg tablet 10 mg PO DAILY #90 tabs 11/29/22 03/29/23 03/28/23 Rx albuterol sulfate 90 mcg/actuation 2 puff inhalation Q4H PRN 12/06/22 03/29/23 01/17/23 Rx aerosol inhaler (Ventolin HFA) shortness of breath or wheezing #8.5 grams pantoprazole 40 mg tablet,delayed 40 mg PO DAILY #30 tabs 01/03/23 03/29/23 03/27/23 Rx release (Protonix) tizanidine 4 mg tablet 4 mg PO BID PRN muscle spasticity 03/22/23 03/22/23 Unknown Rx #60 tabs Allergies Allergy/AdvReac Type Severity Reaction Status Date / Time sitagliptin [From Apruvia] Allergy Unknown Unknown Verified 03/22/23 09:44 [facility] [place] Anesthesia Medical History Squamous cell carcinoma of skin Nephrolithiasis History of ovarian cancer Chronic back pain Stage 3a chronic kidney disease (CKD) HLD (hyperlipidemia) Insulin dependent diabetes mellitus Essential hypertension Obesity Surgical History H/O: hysterectomy Social History Smoking and tobacco/nicotine status: never used tobacco/nicotine Second hand smoke exposure: No Alcohol intake: never Substance/Drug Use: never Caregiver/support person: No Lives independently: No Household members: spouse Marital status: Number of children: 1 service: No Current occupational status: unemployed Current occupational exposures/hazards: No Pets and animals: No Do you think of yourself as: Straight/Heterosexual Current gender identity: Female Data Anesthesia Cardiac Studies: Echocardiogram 09/22/22 Holter Monitor 03/22/22
[2023-03-29] MEDS: ceFAZolin 2,000 MG in sodium chloride 0.9% (plus) 50 ML 100 MG IV (11:25)
[2023-03-29] MEDS: ROPivacaine 0.5% SDV 30 mL 25 MG INJECTION (11:56)
[2023-03-29] MEDS: lidocaine-epi 1% 20 mL INJ 5 ML INJECTION (11:56)
--- NOTE | 2023-03-29 12:27 | P.BOP_ITS ---
Date of Procedure: 03/29/2023 Surgeon: Maurice Flores DO Indirect Sales Representative(s): None Procedure(s) performed: Left carpal tunnel release Left cubital tunnel release Left ulnar nerve transposition Findings of the procedure(s): Left carpal tunnel syndrome and left cubital tunnel syndrome as well as a subluxating unstable ulnar nerve patient underwent a left carpal tunnel release left cubital tunnel release and left ulnar nerve transposition and procedure went as planned with no complications Estimated blood loss: 10 mL Specimen(s) removed: None Post-operative diagnosis: Left carpal tunnel release, left cubital tunnel release with subluxating ulnar nerve
--- NOTE | 2023-03-29 12:29 | PM.OP ---
Operative Report Date of procedure: March 29, 2023 Pre-op diagnosis: Left Carpal Tunnel Syndrome Left cubital tunnel syndrome Surgeon: Maurice Flores DO Procedure: Postop Diagnosis: Same, subluxating ulnar nerve Procedure done: Left carpal tunnel release Left?cubital?tunnel tunnel release (ulnar nerve decompression at elbow) Left Elbow Ulnar Nerve Transposition Surgeon: Maurice Flores DO Estimated blood loss: 5 mL Tourniquet? 29 minutes IV fluids: 500 mL Complications: None Findings: See operative report narrative Condition: stable Disposition: same day Brief History: Patient's been seen and worked up in the outpatient setting and findings consistent with preoperative diagnosis.? Patient has Left carpal tunnel syndrome as well as Left?cubital?tunnel syndrome which has been worked up in the outpatient setting has physical exam findings consistent with this as well as confirmatory nerve conduction/EMG nerve conduction study consistent with diagnosis.? Patient's failed conservative treatment.? As result through shared decision making agreed to proceed with? Left carpal tunnel and Left?cubital?tunnel release we talked about treatment options as far as nonoperative and operative intervention.? Understands risk benefits complication alternatives surgical nonsurgical treatment options.? Understanding his risks he agrees to proceed with surgical intervention. Understanding these risks he agrees to proceed with surgery.? Consent obtained in office. Procedure: Patient seen evaluate in the preoperative holding area.? Consent was reviewed and signed with patient.? Correct extremity marked.? Patient seen evaluated by anesthesia department once cleared for surgery was then taken back to the operative suite placed in supine position all bony prominences well-padded patient properly secured to bed.? Left upper extremity placed onto armboard.? Nonsterile tourniquet applied Left upper arm.? Patient then underwent anesthesia per the anesthesia department.? Patient's Left upper extremity was then prepped and draped in standard orthopedic fashion.? Final timeout performed.? Patient received appropriate preoperative antibiotics. Esmarch was used exsanguinate the Left upper extremity.? Tourniquet was insufflated to 250 mmHg. I started with the carpal tunnel release first.? I made a standard open carpal tunnel release starting with the distal most extent in the palm at the Garvin's cardinal line and the incision line was made in line with the fourth ray and ended just distal to the wrist crease.? Sharp scalpel incision was made through skin and subcutaneous tissue I then utilizing self retainer then began to dissect with dissection scissors split longitudinally the palmar fascia.? Next I then utilizing my operator assistant i cementing Stephen retractors subsequently utilizing scalpel feathered through the palmaris brevis as well as through the transverse carpal ligament distally.? Once I encountered the floor of the transverse carpal ligament and entered into the carpal tunnel I then switched to dissection scissors.? Carefully released the distal extent of the transverse carpal ligament to the palmar fat.? Care was to protect the recurrent branch and not injured this during this part of the case.? Next I then placed a Denio underneath the transverse carpal ligament proximally to protect the nerve in the carpal tunnel contents.? And then I subsequently under loupe magnification utilize my dissection scissors to release the transverse carpal ligament into the antebrachial fascia under direct visualization with care to keep my scissors with a curved ulnarly away from the palmar cutaneous branch.? The transverse carpal was then completely decompressed proximally and a Denio was then placed both distally and proximally throughout the carpal tunnel and had complete decompression of the nerve.? The nerve did appear to have hourglass shape as it went through the carpal tunnel.? With significant irritation noted around the nerve.? No masses were noted within the contents of the carpal tunnel.? This completed the carpal tunnel release and then I subsequently irrigated the wound bed and placed a wet Ray-Beatriz into the incision for later closure. Next marked out the landmarks of the Left elbow of the medial epicondyle and olecranon and made a curvilinear incision following the course of the ulnar nerve at the medial aspect of the elbow.? Sharp scalpel incision was made through skin and subcutaneous tissue.? Next I switched to Littler dissection scissors and spread in plane of the medial antebrachial cutaneous nerve branching which was protected throughout this part of the dissection.? Then I directly came down over the fascia and identified the 2 heads of the FCU fascia and split this Left in the middle and subsequently identified my ulnar nerve distally.? This was then completely released distally under direct visualization and loupe magnification.? Once the nerve was then identified I then subsequently tracked this proximally and released this through Costello's ligament as well as complete decompression of the nerve proximally all the way past the intermuscular septum.? The nerve was completely released and decompressed both proximally and distally.? Ulnar nerve neurolysis performed and completed both proximally and distally with dissection scissors.? At this point in time the in situ release was completed I then subsequently took the elbow through range of motion and subluxation was noted over the medial epicondyle and plan for ulnar nerve transposition was made.? ?I thoroughly irrigated the nerve throughout the case to prevent it from drying out. Of note the ulnar nerve had significant irritation and inflammation.? Next while protecting the nerve as well as care to not injure any venous structures I then excised the intermuscular septum proximally with bipolar electrocautery.? This allowed for there to be no entrapment proximally with my transposition.? Next I then performed my standard Z- flap into the fascia.? This created a large thick fascial band that would be sutured to secure the ulnar nerve when its been transposed.? Once the incision was made just through the fascia I then mobilized just the fascia and freed the muscle belly off of this.? I then sequentially excised the T and Y shaped fascial bands throughout the flexor pronator mass to prevent any type of bandage strip structure irritating the transposition.? At this point I had only soft tissue and muscle belly with which the ulnar nerve could rest.? I had to do a small excision of the muscle belly distally to create a nice trough for the nerve to lie.? At this point I then mobilized the nerve and this was transposed into the flexor pronator insertion under the fasica flaps.? There was no evidence of kinking/tethering of the nerve.? this was significantly redundant and lax with no signs of tension or entrapment.? I then utilized a 3-0 Ethibond suture and approximated the fascia flaps that was created and the Left knee okay okay secured with horizontal interrupted mattress stitches.? I was able to place 2 fingers under the repair with no evidence of entrapment and the elbow was taken through range of motion and no areas of entrapment or kinking were noted on the nerve and the nerve was redundant relaxed in all ranges of motion.? This completed my ulnar nerve decompression of the?cubital?tunnel as well as ulnar nerve transposition.? Wound bed was then thoroughly irrigated.? Tourniquet was deflated.? Maintained exact hemostasis with bipolar electrocautery.? I did place a jonnie drain to prevent hematoma formation. As result the skin was reapproximated with interrupted Vicryl subcutaneous suture 3-0.? I next utilized a running horizontal mattress stitch with 3-0 nylon.? Extremity was then cleaned and the incision was then covered with Xeroform 4 x 4's ABD Curlex and soft roll and a posterior long-arm splint was then applied with an David wrap.? Patient was then awakened from anesthesia and taken to PACU in stable condition. Disposition: Patient taken to PACU in stable condition.? Patient given appropriate discharge instructions as well as pain medication.? We will get Patient in with OT hand therapy for splint takedown dressing change and drain pull in the next couple days. Pt to maintain splint for a total of 10 days then may begin OT hand therapy for ROM and nerve glide exercises. Patient will see me in office in 2 weeks.? pt understands? if they has any questions they can contact the office.
[2023-03-29] MEDS: HYDROcodone-acetaminophen 5-325 mg Tablet 1 TAB PO (14:02)
--- NOTE | 2023-03-29 14:34 | SUR.PHASEII ---
ROM and sensation all for extremities.
--- NOTE | 2023-03-29 15:50 | ANE.PACU2 ---
Inpatient post-anesthesia follow up: Airway intact: Yes Vital signs: Temperature 98.1 F Pulse Rate 77 Respiratory Rate 16 Blood Pressure 160/91 Pulse Oximetry 94 Oxygen Delivery Me thod Room Air Oxygen Flow Rate Fraction of Inspir ed Oxygen Hydration adequate: Yes Nausea and vomiting: No Pain level: 2 Mental status: Baseline
== END 2023-03-29 14:15 | disposition home or self-care (01) ==
PROVIDERS: PCP Family Medicine; Visit Provider Student in an Organized Health Care Education/Training Program
PROC: (CPT 64721; principal; 2023-03-29 10:00)
PROC: (CPT 64718; 2023-03-29 10:00)
PROC: (CPT 64718; 2023-03-29 10:00)
DX: G56.02 Carpal tunnel syndrome, left upper limb (principal); G56.22 Lesion of ulnar nerve, left upper limb; J44.9 Chronic obstructive pulmonary disease, unspecified; I10 Essential (primary) hypertension; K21.9 Gastro-esophageal reflux disease without esophagitis; E11.9 Type 2 diabetes mellitus without complications; Z79.4 Long term (current) use of insulin; Z85.43 Personal history of malignant neoplasm of ovary; Z85.828 Personal history of other malignant neoplasm of skin
CPT/HCPCS: 64718; 64721; 36416; 82962; J0131; J0690; J1100; J1885; J2405; J2704; J2795; J3010

== ENCOUNTER 2023-04-03 14:04 | Outpatient (RCR) | payer MEDICARE, SELFPAY | END 2023-04-22 23:59 | disposition home or self-care (01) | LOC: SOT 14:04 | PROVIDERS: PCP Family Medicine; Visit Provider Student in an Organized Health Care Education/Training Program | DX: Z47.89 Encounter for other orthopedic aftercare (principal) | CPT/HCPCS: 97110; 97165; 97530 ==

== ENCOUNTER → 2023-04-19 08:03 | Outpatient (BNVA) | payer MEDICARE, SELFPAY | PROVIDERS: PCP Family Medicine; Visit Provider Student in an Organized Health Care Education/Training Program | DX: Z98.890 Other specified postprocedural states (principal) | CPT/HCPCS: 99024; 99213 ==

== ENCOUNTER 2023-04-25 12:22 | Outpatient (RCR) | payer MEDICARE, SELFPAY | END 2023-05-23 23:59 | disposition home or self-care (01) | LOC: SOT 12:22 | PROVIDERS: PCP Family Medicine; Visit Provider Student in an Organized Health Care Education/Training Program | DX: Z47.89 Encounter for other orthopedic aftercare (principal) | CPT/HCPCS: 97022; 97110; 97140 ==

== ENCOUNTER → 2023-05-04 11:17 | Outpatient (BNVA) | payer MEDICARE, SELFPAY | PROVIDERS: PCP Family Medicine; Visit Provider Family Medicine | DX: L29.9 Pruritus, unspecified (principal); E11.9 Type 2 diabetes mellitus without complications; K59.00 Constipation, unspecified; Z98.890 Other specified postprocedural states; I10 Essential (primary) hypertension; M54.9 Dorsalgia, unspecified; G89.29 Other chronic pain; K21.9 Gastro-esophageal reflux disease without esophagitis; Z68.37 Body mass index [BMI] 37.0-37.9, adult; E78.5 Hyperlipidemia, unspecified | CPT/HCPCS: 80053; 83036 ==

== ENCOUNTER 2023-05-30 10:54 | Outpatient (RCR) | payer MEDICARE, SELFPAY | END 2023-06-21 23:59 | disposition home or self-care (01) | LOC: SOT 10:54 | PROVIDERS: PCP Family Medicine; Visit Provider Student in an Organized Health Care Education/Training Program | DX: Z47.89 Encounter for other orthopedic aftercare (principal); R29.90 Unspecified symptoms and signs involving the nervous system; G31.84 Mild cognitive impairment of uncertain or unknown etiology | CPT/HCPCS: 96116; 97022; 97110; 99214 ==

== ENCOUNTER 2023-07-30 10:27 | Outpatient (CLI) | payer MEDICARE, SELFPAY ==
--- NOTE | 2023-07-30 11:00 | USCV_ITS ---
Sandra Lemus Age: 68 Gender: F : 1955 Exam Date: 07/30/2023 10:52 Ordering Phys: Jose Bah MD Technologist: JUVENAL Exam Location: [facility] [place] Indication: edema BP: / HR: 200 Rhythm: Sinus Technical Quality: Good MEASUREMENTS (Male / Female) Normal Values 2D ECHO LV Diastolic Diameter PLAX 4.5 cm 4.2 - 5.9 / 3.9 - 5.3 cm IVS Diastolic Thickness 1.1 cm 0.6 - 1.0 / 0.6 - 0.9 cm IVS Systolic Thickness 1.3 cm LVPW Diastolic Thickness 1.5 cm 0.6 - 1.0 / 0.6 - 0.9 cm LVPW Systolic Thickness 1.9 cm LVOT Diameter 2.0 cm LV Ejection Fraction 2D Teich 47.6 % LV Ejection Fraction MOD 2C 50.3 % LV Ejection Fraction 2C AL 50.5 % LA Diameter 3.4 cm RA Systolic Volume 4C AL 30.2 ml RA Systolic Volume 4C MOD 28.6 ml LA Sys Volume AL 79.7 cm cubed Aorta at Sinotubular Diameter 3.2 cm IVC Diameter 2.0 cm M-MODE LA Ao Ratio MM 1.5 AV Cusp Separation MM 1.4 cm DOPPLER AV Peak Velocity 139.0 cm/s LVOT Peak Velocity 92.0 cm/s AV Area Cont Eq vti 2.3 cm squared AV Area Cont Eq pk 2.2 cm squared MV Peak Velocity 433.6 cm/s MV Area PHT 3.8 cm squared Mitral E to A Ratio 0.9 TV Peak Velocity 93.0 cm/s TR Peak Velocity 115.5 cm/s TR Peak Gradient 5.3 mmHg TR Mean Velocity 103.0 cm/s TR Mean Gradient 4.7 mmHg TR Velocity Time Integral 28.4 cm TV Peak E Velocity 67.0 cm/s Right Atrial Pressure 3.0 mmHg Pulmonary Artery Systolic Pressu 8.3 mmHg PV Peak Velocity 101.5 cm/s RV Ejection Time 0.3 s FINDINGS Left Ventricle Normal left ventricular size and systolic function, EF 56%. No regional wall motion abnormalities. Grade II/IV diastolic dysfunction, moderately elevated filling pressures. Right Ventricle The right ventricle is normal in size and function. Right Atrium The right atrium is normal in size. Left Atrium Mildly increased left atrial size. Mitral Valve Mild mitral valve regurgitation. Thickened mitral valve. Aortic Valve Thickened aortic valve. Tricuspid Valve No gross abnormalities noted Pulmonic Valve Pulmonic valve not well visualized. Pericardium Normal pericardium without effusion. Aorta Normal ascending aorta dimension. IVC The inferior vena cava appears normal. CONCLUSIONS Normal left ventricular size and systolic function, EF 56%. No regional wall motion abnormalities. Type I diastolic dysfunction. Mildly increased left atrial size. Mild mitral valve regurgitation. Thickened mitral valve. Thickened aortic valve. There is no pericardial effusion. There are no intracardiac masses. Compared to the previous study from 09/22/2022, there may not be a significant change Dr Becca Navarro MD [facility] (Electronically Signed) Final Date: 30 July 2023 14:38 S
== END 2023-07-30 10:28 | disposition home or self-care (01) ==
LOC: RAD 10:28
PROVIDERS: PCP Family Medicine; Visit Provider Family Medicine
DX: R79.89 Other specified abnormal findings of blood chemistry (principal); R60.9 Edema, unspecified; I34.0 Nonrheumatic mitral (valve) insufficiency
CPT/HCPCS: 93306

== ENCOUNTER → 2023-08-15 15:28 | Outpatient (BNVA) | payer MEDICARE, SELFPAY | PROVIDERS: PCP Family Medicine; Visit Provider Family Medicine | DX: I50.20 Unspecified systolic (congestive) heart failure (principal); I50.30 Unspecified diastolic (congestive) heart failure; N18.9 Chronic kidney disease, unspecified; N28.9 Disorder of kidney and ureter, unspecified | CPT/HCPCS: 80053; 81003; 82310; 82570; 83880; 83970; 84156 ==

== ENCOUNTER → 2023-11-02 13:47 | Outpatient (BNVA) | payer MEDICARE, SELFPAY | PROVIDERS: PCP Family Medicine; Visit Provider Specialist | DX: R29.90 Unspecified symptoms and signs involving the nervous system (principal); G31.84 Mild cognitive impairment of uncertain or unknown etiology | CPT/HCPCS: 99213 ==

== ENCOUNTER 2023-11-22 15:23 | Outpatient (CLI) | payer MEDICARE, SELFPAY ==
--- NOTE | 2023-11-22 15:15 | US_ITS ---
WS: [id number] Bilateral renal ultrasound, 11/22/2023 Clinical Data: severe proteinuria Comparison: None. Findings: The right kidney measures 10.8 cm x 6.0 cm x 7.4 cm and the left kidney is 12.2 cm x 6.5 cm x 6.3 cm. There is an infrarenal 1.6 x 1.9 x 2.0 cm cyst. The border of the cyst is complex but no internal ec hoes are seen. The renal cortical margins are irregular. No renal calculi are seen. The bladder was scanned and was not remarkable. US/US renal BI* [id number] Impression: 1. Probable right intrarenal cyst. 2. Irregular borders of both kidneys.
== END 2023-11-22 15:24 | disposition home or self-care (01) ==
LOC: RAD 15:24
PROVIDERS: PCP Family Medicine; Visit Provider Family Medicine
DX: R80.8 Other proteinuria (principal); N18.31 Chronic kidney disease, stage 3a
CPT/HCPCS: 76770

== ENCOUNTER → 2023-12-06 08:54 | Outpatient (BNVA) | payer MEDICARE, SELFPAY | PROVIDERS: PCP Family Medicine; Visit Provider Family Medicine | DX: E11.9 Type 2 diabetes mellitus without complications (principal); N28.9 Disorder of kidney and ureter, unspecified | CPT/HCPCS: 80053; 81000; 82570; 83036; 83880; 84156; 85025 ==

== ENCOUNTER → 2023-12-13 15:33 | Outpatient (BNVA) | payer MEDICARE, SELFPAY | PROVIDERS: PCP Family Medicine; Visit Provider Orthopaedic Surgery | DX: M48.062 Spinal stenosis, lumbar region with neurogenic claudication (principal); M51.16 Intervertebral disc disorders with radiculopathy, lumbar region | CPT/HCPCS: 72110; 99204 ==

== ENCOUNTER 2024-01-24 15:45 | Outpatient (CLI) | payer MEDICARE, SELFPAY ==
--- NOTE | 2024-01-24 16:00 | MR_ITS ---
WS: [id number] MRI LUMBAR SPINE NONCONTRAST TECHNIQUE: Sagittal T1, T2 and STIR imaging. Axial T1 and T2 imaging. CLINICAL INFORMATION: back pain COMPARISON: MRI 2017 FINDINGS: Mild lumbar curve. No acute compression. Slight anterolisthesis L3 on L4 and L4 on L5. Disc bulging w orse at L3-L4 L4-L5 and L5-S1. Disc bulging at these levels has progressed since 2017 L1-L2: Mild facet arthropathy. Spinal canal and foramen are patent. L2-L3: Mild disc bulging. Moderate facet arthropathy. Spinal canal and foramen are patent. L3-L4: Slight anterolisthesis L3 on L4. Mild disc bulging with moderate to severe central canal steno sis new compared to previous. Advanced facet arthropathy with ligamentum flavum hypertrophy. Moderate RIGHT and mild LEFT foraminal narrowing. L4-L5: Slight anterolisthesis. Moderate to severe central canal stenosis due to disc bulging with fac et arthropathy and ligamentum flavum hypertrophy. Impingement LEFT subarticular recess. Moderate LEFT and mild RIGHT foraminal narrowing. L5-S1: LEFT paracentral disc protrusion impinges the traversing LEFT S1 nerve root in the subarticula r recess. Mild central canal stenosis. Moderate facet arthropathy. Mild RIGHT greater than LEFT elicia inal narrowing. Visualized pelvic bony structures: Normal. Paravertebral soft tissues: Normal. Mild central canal stenosis in the cervical spine on the convalescent sitter imaging. MR/MR lumbar spine wo con* [id number] IMPRESSION: 1. Mild lumbar curve. No acute compression. 2. Moderate to severe central canal stenosis L3-L4 and L4-L5 new/progressed co mpared to previous. 3. LEFT paracentral disc protrusion L5-S1 impinges the traversing LEFT S1 nerv e root in the subarticular recess with mild central canal stenosis. 4. Moderate RIGHT L3-4 foraminal narrowing has progressed 5. Moderate LEFT L4-5 foraminal narrowing has progressed
== END 2024-01-24 15:46 | disposition home or self-care (01) ==
LOC: RAD 15:49
PROVIDERS: PCP Family Medicine; Visit Provider Orthopaedic Surgery
DX: M51.369 Other intervertebral disc degeneration, lumbar region without mention of lumbar back pain or lower extremity pain (principal); M47.896 Other spondylosis, lumbar region; M99.63 Osseous and subluxation stenosis of intervertebral foramina of lumbar region; M47.898 Other spondylosis, sacral and sacrococcygeal region
CPT/HCPCS: 72148

== ENCOUNTER → 2024-01-31 13:00 | Outpatient (BNVA) | payer MEDICARE, SELFPAY | PROVIDERS: PCP Family Medicine; Visit Provider Orthopaedic Surgery | DX: M54.9 Dorsalgia, unspecified (principal); M48.062 Spinal stenosis, lumbar region with neurogenic claudication | CPT/HCPCS: 99214 ==

== ENCOUNTER → 2024-03-13 12:30 | Outpatient (BNVA) | payer MEDICARE, SELFPAY | PROVIDERS: PCP Family Medicine; Visit Provider Specialist | DX: Z53.21 Procedure and treatment not carried out due to patient leaving prior to being seen by health care provider | CPT/HCPCS: G0463 ==

== ENCOUNTER → 2024-03-17 16:30 | Outpatient (BNVA) | payer MEDICARE, SELFPAY | PROVIDERS: PCP Family Medicine; Visit Provider Family Medicine | DX: E11.9 Type 2 diabetes mellitus without complications (principal); L29.9 Pruritus, unspecified | CPT/HCPCS: 80053; 80061; 83036; 85025 ==

== ENCOUNTER → 2024-05-20 17:11 | Outpatient (BNVA) | payer MEDICARE, SELFPAY | PROVIDERS: PCP Family Medicine; Visit Provider Specialist | DX: G31.84 Mild cognitive impairment of uncertain or unknown etiology (principal) | CPT/HCPCS: 36415; 82607; 99214 ==

== ENCOUNTER → 2024-07-14 12:45 | Outpatient (BNVA) | payer MEDICARE, SELFPAY | PROVIDERS: PCP Family Medicine; Visit Provider Nurse Practitioner Family | DX: S80.921A Unspecified superficial injury of right lower leg, initial encounter (principal); S80.922A Unspecified superficial injury of left lower leg, initial encounter; L98.1 Factitial dermatitis; L82.1 Other seborrheic keratosis; L21.8 Other seborrheic dermatitis; L81.4 Other melanin hyperpigmentation; Z08 Encounter for follow-up examination after completed treatment for malignant neoplasm; Z85.828 Personal history of other malignant neoplasm of skin; L57.0 Actinic keratosis; L56.8 Other specified acute skin changes due to ultraviolet radiation; X58.XXXA Exposure to other specified factors, initial encounter | CPT/HCPCS: 17000; 99204 ==

== ENCOUNTER → 2024-07-23 10:59 | Outpatient (BNVA) | payer MEDICARE, SELFPAY | PROVIDERS: PCP Family Medicine; Visit Provider Family Medicine | DX: N18.32 Chronic kidney disease, stage 3b (principal) | CPT/HCPCS: 80069; 82310; 82570; 83970; 84156; 85025 ==

== ENCOUNTER → 2024-08-05 12:10 | Outpatient (BNVA) | payer MEDICARE, SELFPAY | PROVIDERS: PCP Family Medicine; Visit Provider Internal Medicine | DX: N18.32 Chronic kidney disease, stage 3b (principal) | CPT/HCPCS: 80069; 82310; 83970; 85025 ==

== ENCOUNTER 2024-08-11 10:46 | Emergency (ER) | payer MEDICARE, SELFPAY ==
[2024-08-11 10:51] VITALS: BP 183/92; PULSE 90; TEMP 36.7; O2SAT 98; BMI 38.0
--- NOTE | 2024-08-11 11:17 | W.ED.NAVMDI ---
HPI - Nausea/Vomiting/Diarrhea General: Chief complaint: Nausea/Vomiting/Diarrhea Stated complaint: n/v/d, swelling in arms and legs Time Seen by Provider: 08/11/24 11:08 History of Present Illness: 69-year-old female presents with nausea and vomiting. She reports that she has been having some frequent nausea and vomiting daily but since yesterday she has not been able to keep anything down. She reports that her stomach is swollen Associated nausea: Yes Associated symtoms: Reports bloating and nausea Related Data Home Medications ?Medication ?Instructions ?Recorded ?Confirmed insulin aspart U-100 100 unit/mL See Rx Instructions .Route .COMPLEX 03/09/22 08/11/24 (3 mL) subcutaneous pen (Novolog FlexPen U-100 Insulin aspart) Marine Phytoplankton 250 mg PO DAILY 10/04/22 08/11/24 vitamins A,C,F-euwp-whubop 4,296 1 cap PO BID 06/19/23 08/11/24 mcg-226 mg-90 mg capsule (PreserVision AREDS) gabapentin 100 mg capsule 100 mg PO BID 08/05/24 08/11/24 magnesium 250 mg tablet 250 mg PO DAILY 08/05/24 08/11/24 potassium chloride 10 mEq 10 meq PO DAILY 08/11/24 08/11/24 tablet,extended release Previous Rx's ?Medication ?Instructions ?Recorded semaglutide 2 mg/dose (8 mg/3 mL) 2 mg (0.75 mL) SUBCUT .weekly #3 mL 05/31/23 subcutaneous pen injector (Ozempic) insulin degludec 200 unit/mL (3 80 unit (0.4 mL) SUBCUT DAILY #9 mL 08/21/23 mL) subcutaneous pen (Tresiba FlexTouch U-200 insulin) irbesartan 150 mg tablet 150 mg PO DAILY #90 tabs 11/23/23 ezetimibe 10 mg tablet 10 mg PO DAILY #90 tabs 12/10/23 albuterol sulfate 90 mcg/actuation 2 puff inhalation Q6H PRN 02/13/24 aerosol inhaler (Ventolin HFA) shortness of breath or wheezing #8.5 grams omeprazole 20 mg capsule,delayed 20 mg PO DAILY #60 caps 05/16/24 release galantamine 4 mg tablet 4 mg PO BID #60 tabs 01/28/25 bumetanide 1 mg tablet See Rx Instructions PO DAILY #30 08/05/24 tabs rollaid walker with seat #1 ea 08/05/24 ondansetron 4 mg disintegrating 4 mg PO Q6H PRN nausea and 08/11/24 tablet vomiting #20 tabs potassium chloride 10 mEq 10 meq PO BID #14 caps 08/11/24 capsule,extended release Allergies Allergy/AdvReac Type Severity Reaction Status Date / Time sitagliptin (From Januvia) Allergy Unknown Unknown Verified 08/11/24 10:59 empagliflozin (From Allergy Unknown Verified 08/11/24 11:00 Jardiance) Review of Systems Const: Denies: fever(s) or chills Resp: Denies: dyspnea GI: Reports: nausea, vomiting and bloating Skin/Breast: Denies: rash PFSH ED PFSH: Medical History (Updated 08/11/24 @ 12:23 by Yoan Tovar DO) CKD (chronic kidney disease), stage IV CKD stage 3b, GFR 30-44 ml/min Diabetic nephropathy Squamous cell carcinoma of skin Nephrolithiasis History of ovarian cancer Chronic back pain Stage 3a chronic kidney disease (CKD) HLD (hyperlipidemia) Insulin dependent diabetes mellitus Essential hypertension Obesity Surgical History History of carpal tunnel release History of decompression of ulnar nerve H/O: hysterectomy Social History Smoking and tobacco/nicotine status: never used tobacco/nicotine Second hand smoke exposure: No Alcohol intake: never Substance/Drug Use: never Caregiver/support person: No Lives independently: No Household members: spouse Marital status: Number of children: 1 service: No Current occupational status: unemployed Current occupational exposures/hazards: No Pets and animals: No Do you think of yourself as: Straight/Heterosexual Current gender identity: Female Physical Exam Const: COMMON NORMALS: no acute distress and patient oriented x3 NUTRITIONAL APPEARANCE: obese Resp: COMMON NORMALS: normal respiratory effort, No use of accessory muscles and clear to auscultation bilaterally AUSCULTATION: clear to auscultation bilaterally Cardio: COMMON NORMALS: regular rate and regular rhythm RATE: regular rate RHYTHM: regular rhythm GI: COMMON NORMALS: Soft to palpation and non-tender PALPATION: Yes Soft to palpation Neuro: COMMON NORMALS: patient oriented x3, moves all extremities and no focal motor deficits Psych: COMMON NORMALS: Normal thought process present, cooperative and speech normal SPEECH: Yes normal speech THOUGHT PROCESS: Normal thought process present Course Vital Signs: Vital signs: Vital Signs Temperature 98.0 F 08/11/24 10:51 Pulse Rate 86 08/11/24 12:09 Respiratory Rate 16 08/11/24 12:09 Blood Pressure 196/97 08/11/24 12:09 Pulse Oximetry 94 08/11/24 12:09 Oxygen Delivery Me thod Room Air 08/11/24 12:09 MDM - Nausea/Vomiting/Diarrhea Medical Decision Making Patient's diagnostic studies were ordered reviewed and interpreted by me. Patient's labs show no acute findings. Patient had no episodes of vomiting while in the ER. Patient does have elevated creatinine that is at her baseline. Her potassium is slightly low but has been having low baseline potassiums likely due to recent increase in her Bumex. Patient will be prescribed Zofran along with potassium. Also recommend she start pantoprazole as likely has some GERD or gastritis. She has an appointment with her primary care provider in 5 days which I encouraged her to keep. Patient was stable and discharged home. Lab Data 08/11/24 11:32 08/11/24 11:32 Radiology Impressions KUB X-Ray 08/11/24 11:20 IMPRESSION: 1. No acute abdominal finding. 2. Small calcifications superimposed both renal silhouettes and may represent renal calculi. Laboratory Results WBC 12.50 10^3/uL (3.29-11.43) H 08/11/24 11:32 RBC 4.86 10^6/uL (3.85-5.65) 08/11/24 11:32 Hgb 14.10 g/dL (11.27-16.99) 08/11/24 11:32 Hct 42.2 % (36-47) 08/11/24 11:32 MCV 86.8 fl (85-98) 08/11/24 11:32 MCH 29.0 pg (27-33) 08/11/24 11:32 MCHC 33.4 g/dL (30-55) 08/11/24 11:32 RDW 13.1 % (12.1-15.1) 08/11/24 11:32 Plt Count 382 10^3/cmm (157-399) 08/11/24 11:32 MPV 10.4 fL (7.4-10.4) 08/11/24 11:32 Neut % (Auto) 77.4 % 08/11/24 11:32 Lymph % (Auto) 14.9 % 08/11/24 11:32 [place] % (Auto) 6.0 % 08/11/24 11:32 Eos % (Auto) 0.6 % 08/11/24 11:32 Baso % (Auto) 0.6 % 08/11/24 11:32 Neut # (Auto) 9.68 10^3/uL (1.8-7.7) H 08/11/24 11:32 Lymph # (Auto) 1.9 10^3/uL (0.8-4.8) 08/11/24 11:32 [place] # (Auto) 0.8 10^3/uL (0.2-0.9) 08/11/24 11:32 Eos # (Auto) 0.1 10^3/uL (0.0-0.8) 08/11/24 11:32 Baso # (Auto) 0.1 10^3/uL (0.0-0.1) 08/11/24 11:32 Nucleated RBC % (auto) 0 % 08/11/24 11:32 Nucleated RBCs # 0.0 /100WBC 08/11/24 11:32 Sodium 143 mmol/L (136-145) 08/11/24 11:32 Potassium 2.9 mmol/L (3.5-5.1) L 08/11/24 11:32 Chloride 101 mmol/L (98-107) 08/11/24 11:32 Carbon Dioxide 30 mmol/L (22-29) H 08/11/24 11:32 Anion Gap 14.9 (5-19) 08/11/24 11:32 BUN 22 mg/dL (8-23) 08/11/24 11:32 Creatinine 2.2 mg/dL (0.5-0.9) H 08/11/24 11:32 GFR Calculation 22.3 mL/min (90-130) L 08/11/24 11:32 Glucose 201 mg/dL (65-115) H 08/11/24 11:32 Calculated Osmolality 305 mOsm/kg (285-295) H 08/11/24 11:32 Calcium 9.1 mg/dL (8.5-10.5) 08/11/24 11:32 Total Bilirubin 0.3 mg/dL (0.15-1.2) 08/11/24 11:32 AST 17 U/L (0-32) 08/11/24 11:32 ALT 14 U/L (0-33) 08/11/24 11:32 Alkaline Phosphatase 129 U/L (35-105) H 08/11/24 11:32 Total Protein 6.6 g/dL (6.6-8.7) 08/11/24 11:32 Albumin 2.9 g/dL (3.5-5.2) L 08/11/24 11:32 Globulin 3.7 g/dL (1.3-4.6) 08/11/24 11:32 Lipase 14 U/L (13-60) 08/11/24 11:32 Urine Color Yellow (Yellow) 08/11/24 11:27 Urine Appearance Cloudy (CLEAR) A 08/11/24 11:27 Urine pH 7.0 (5-7) 08/11/24 11:27 Ur Specific Crystal 1.018 (1.005-1.030) 08/11/24 11:27 Urine Protein 4+ (Negative) A 08/11/24 11:27 Urine Glucose (UA) 2+ (Normal) H 08/11/24 11:27 Urine Ketones 2+ (Negative) H 08/11/24 11:27 Urine Blood 1+ (Negative) A 08/11/24 11:27 Urine Nitrate Negative (Negative) 08/11/24 11:27 Urine Bilirubin Negative (Negative) 08/11/24 11:27 Urine Urobilinogen 0.2 mg/dL (Negative) 08/11/24 11:27 Ur Leukocyte Esterase Negative (Negative) 08/11/24 11:27 Urine RBC 3-5 /hpf (0-2) 08/11/24 11:27 Urine WBC 11-20 /hpf (0-5) H 08/11/24 11:27 Ur Squamous Epith Cells 11-20 /hpf (0-5) H 08/11/24 11:27 Amorphous Sediment Not Reportable 08/11/24 11:27 Urine Bacteria None seen /hpf (NONE) 08/11/24 11:27 Hyaline Casts 0-4 /lpf H 08/11/24 11:27 All radiology interpretation(s) finalized by discharge Discharge Plan Discharge Patient Disposition: Home Clinical Impression: CKD stage 3b, GFR 30-44 ml/min, Hypokalemia, Nausea & vomiting Condition: Stable Prescriptions: New potassium chloride 10 mEq capsule, extended release 10 meq PO BID Qty: 14 0RF ondansetron 4 mg tablet,disintegrating 4 mg PO Q6H PRN (Reason: nausea and vomiting) Qty: 20 0RF No Action Ozempic 2 mg/dose (8 mg/3 mL) pen injector 2 mg SUBCUT .weekly Qty: 3 3RF albuterol sulfate [Ventolin HFA] 90 mcg/actuation HFA aerosol inhaler 2 puff inhalation Q6H PRN (Reason: shortness of breath or wheezing) Qty: 8.5 0RF magnesium 250 mg tablet 250 mg PO DAILY gabapentin 100 mg capsule 100 mg PO BID bumetanide 1 mg tablet See Rx Instructions PO DAILY Qty: 30 0RF Rx Instructions: 2 tablets qAM and 1 tablet qNOON orally daily; (DME) rollaid walker with seat See Rx Instructions .Route .MEDSUPPLY Qty: 1 0RF Rx Instructions: As directed Marine Phytoplankton 250 mg PO DAILY PreserVision AREDS 4,296 mcg-226 mg-90 mg capsule 1 cap PO BID omeprazole 20 mg capsule,delayed release(DR/EC) 20 mg PO DAILY Qty: 60 1RF galantamine 4 mg tablet 4 mg PO BID Qty: 60 6RF Rx Instructions: administer with AM and PM meals insulin degludec [Tresiba FlexTouch U-200] 200 unit/mL (3 mL) insulin pen 80 unit SUBCUT DAILY Qty: 9 0RF irbesartan 150 mg tablet 150 mg PO DAILY Qty: 90 1RF ezetimibe 10 mg tablet 10 mg PO DAILY Qty: 90 1RF insulin aspart U-100 [Novolog FlexPen U-100 Insulin] 100 unit/mL (3 mL) insulin pen See Rx Instructions .ROUTE .COMPLEX Rx Instructions: per sliding scale potassium chloride 10 mEq tablet extended release 10 meq PO DAILY Discharge Orders: Discharge ED (Routine); Ordered 08/11/24 Ordered By: Yoan Tovar Referrals: Jose Bah MD [Primary Care Provider] - Discharge Diet: Advance as tolerated and Clear Liquid Discharge Activity: Resume usual activity Patient Instructions: Hypokalemia (ED), GERD (Gastroesophageal Reflux Disease) (ED), Acute Nausea and Vomiting (ED), Opioid Safety, Pain Management Activity Restrictions/Additional Instructions: Please start pantoprazole daily, please keep your appointment for your primary care provider this Sunday. Please take the potassium twice daily as prescribed. Print Language: Egyptian Coding Level of Care Code ED Electromechanical Technician for Jan Mancuso
--- NOTE | 2024-08-11 11:20 | XR_ITS ---
WS: [id number] Exam: XR KUB portable [id number] Date/Time of Exam: 08/11/2024 11:26 AM Reason For Exam: n/v No bowel obstruction or pneumoperitoneum. No organ enlargement identified. Signs of prior cholecystectomy. Small calcifications superimpose both renal silhouettes. These may represent renal calculi. Bony structures are intact. XR/XR KUB portable [id number] IMPRESSION: 1. No acute abdominal finding. 2. Small calcifications superimposed both renal silhouettes and may represent r enal calculi.
[2024-08-11 11:37] LABS: Basophils # 0.1 10^3/uL (0.0-0.1); Basophils % 0.6 %; Eosinophils # 0.1 10^3/uL (0.0-0.8); Eosinophils % 0.6 %; Hematocrit 42.2 % (36-47); Lymphocytes # 1.9 10^3/uL (0.8-4.8); Lymphocytes % 14.9 %; Mean Corpuscular HGB Conc 33.4 g/dL (30-55); Mean Corpuscular Volume 86.8 fl (85-98); Mean Platelet Volume 10.4 fL (7.4-10.4); Monocytes # 0.8 10^3/uL (0.2-0.9); Neutrophils # 9.68 10^3/uL (1.8-7.7); Neutrophils % 77.4 %; Nucleated Red Blood Cells % 0 %; Platelet Count 382 10^3/cmm (157-399); Red Blood Count 4.86 10^6/uL (3.85-5.65); Red Cell Distribution Width 13.1 % (12.1-15.1)
[2024-08-11] MEDS: ondansetron 2 mg/ML SDV 2 mL 4 MG IVP (11:40)
[2024-08-11 11:46] LABS: Bilirubin Urine Negative (Negative); Blood Urine 1+ (Negative); Glucose Urine UA 2+ (Normal); Ketones Urine 2+ (Negative); Leukocyte Esterase Urine Negative (Negative); Nitrate Urine Negative (Negative); Protein Urine 4+ (Negative); Specific Gravity, Urine 1.018 (1.005-1.030); Urine Appearance Cloudy (CLEAR); Urine Color Yellow (Yellow); Urobilinogen Urine 0.2 mg/dL (Negative)
[2024-08-11 11:51] LABS: Add Urine Microscopic? YES; Bacteria Urine None Seen /hpf; Hyaline Casts Urine 0-4 /lpf
[2024-08-11 11:55] LABS: Add Urine Culture? No
[2024-08-11 11:58] LABS: Alanine Aminotransferase 14 U/L (0-33); Albumin Level 2.9 g/dL (3.5-5.2); Alkaline Phosphatase 129 U/L (35-105); Anion Gap 14.9 (5-19); Aspartate Amino Transferase 17 U/L (0-32); Blood Urea Nitrogen 22 mg/dL (8-23); Calcium 9.1 mg/dL (8.5-10.5); Carbon Dioxide 30 mmol/L (22-29); Chloride 101 mmol/L (98-107); Creatinine Clr Calc Pharmacy 27.5969; Globulin 3.7 g/dL (1.3-4.6); Glomerular Filtration Rate 22.3 mL/min (90-130); Glucose 201 mg/dL (65-115); Lipase 14 U/L (13-60); Osmolality Calculated 305 mOsm/kg (285-295); Sodium 143 mmol/L (136-145); Total Bilirubin 0.3 mg/dL (0.15-1.2); Total Protein 6.6 g/dL (6.6-8.7)
[2024-08-11 12:09] VITALS: BP 196/97; PULSE 86; RESP 16; O2SAT 94
[2024-08-11 12:11] LABS: Potassium 2.9 mmol/L (3.5-5.1)
[2024-08-11 12:45] VITALS: BP 198/92; PULSE 85; RESP 16; O2SAT 93
== END 2024-08-11 12:44 | disposition home or self-care (01) ==
PROVIDERS: Emergency Provider Student in an Organized Health Care Education/Training Program; PCP Family Medicine
DX: R11.2 Nausea with vomiting, unspecified (principal); E87.6 Hypokalemia; E11.22 Type 2 diabetes mellitus with diabetic chronic kidney disease; I12.9 Hypertensive chronic kidney disease with stage 1 through stage 4 chronic kidney disease, or unspecified chronic kidney disease; N18.32 Chronic kidney disease, stage 3b; Z79.4 Long term (current) use of insulin; Z85.828 Personal history of other malignant neoplasm of skin
CPT/HCPCS: 36415; 74018; 80053; 81001; 83690; 85025; 96374; 96375; 99284; J2405

== ENCOUNTER → 2024-09-01 10:56 | Outpatient (BNVA) | payer MEDICARE, SELFPAY | PROVIDERS: PCP Family Medicine; Visit Provider Family Medicine | DX: E78.5 Hyperlipidemia, unspecified (principal); R60.0 Localized edema; E11.9 Type 2 diabetes mellitus without complications; R05.3 Chronic cough; N18.4 Chronic kidney disease, stage 4 (severe); I50.30 Unspecified diastolic (congestive) heart failure; I10 Essential (primary) hypertension; E87.6 Hypokalemia; E11.21 Type 2 diabetes mellitus with diabetic nephropathy | CPT/HCPCS: 80053; 83036; 85025 ==

== ENCOUNTER 2024-10-17 02:08 | Inpatient (IN) | payer MEDICARE, SELFPAY ==
--- OUTSIDE RECORDS SUMMARY | 2024-10-09 14:30 | XMS_ITS | Encounter Summary ---
Author Organization [facility] Address [address] [place] [address] Care Team Providers Care [employer] Name Role Phone Unavailable Primary Care Provider Unavailabl e Reason for Visit * Physical Therapy (Routine) - Authorized Specialty Diagnoses / Procedures Referred By Jaqueline t Referred To Contact Physical Therapy Diagnoses Chronic back pain, unspecified back location, unspecified back pain laterality Armando Wilkinson, DO [address] [place] [address] Phone: tel: fax: [facility] [place] [address] [address] [place] [address] Phone: tel: fax: Referral ID Status Reason Start Date Expiration Date V isits Requested Visits Authorized [id number] Authorized 05/02/2024 10/28/2024 6 4 Encounter Details Date Type Department Care Team (Late st Contact Info) Description 10/09/2024 2:30 PM CDT - 10/09/2024 11:59 PM CDT Hospital Encounter [facility] [place] [address] [facility] [place] [address] Armando Wilkinsno, [address] [place] [address] Hai Lee, Physical Therapist Discharge Disposition: Home or Self Care Social History Tobacco Use Types Packs/Day Years Used Date Smoking Tobacco: Never Smokeless Tobacco: Never Alcohol Use Standard Drinks/Week Comments Yes 0 (1 standard drink = 0.6 oz pur e alcohol) Comments No Sex and Gender Information Value Date Recorded Sex Assigned at Not on file Legal Sex Female 12:33 PM 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 02/15/2024 cetirizine (ZyrTEC) 10 mg tablet Take 10 mg by mouth daily. hydrOXYzine HCL (ATARAX) 10 mg tablet Take 10 mg by mouth 3 times daily as needed for Itching. pantoprazole (PROTONIX) 40 mg Tablet, Delayed Release (E.C.) Take 40 mg by mouth daily. galantamine (RAZADYNE) 4 mg tablet Take 4 mg by mouth 2 times daily. semaglutide (Ozempic) 1 mg/dose (4 mg/3 mL) Pen Injector Inject 1.0 mg weekly. 9 mL 3 06/01/2022 Insulin [place], Disposable, (BD Alexus 2nd Gen Pen Needle) 32 gauge x 5/32 Needle Use to inject insulin four times daily 400 Each 04/07/2022 insulin detemir U-100 (Levemir FlexTouch U-100 Insuln) 100 unit/mL pen syringe INJECT 40 UNITS SUBCUTANEOUSLY TWICE DAILY 45 mL 3 03/20/2022 NovoLOG Flexpen U-100 Insulin 100 unit/mL (3 mL) pen syringe INJECT THREE TIMES DAILY 15 UNITS SUBCUTANEOUSLY AT LUNCHTIME, 20 UNITS AT SUPPERTIME, 10 UNITS WITH SNACK. MAXIMUM DOSE 75 UNITS PER DAY 11/24/2021 irbesartan (AVAPRO) 150 mg tablet Take 150 mg by mouth daily. 09/28/2021 latanoprost (XALATAN) 0.005 % solution INSTILL 1 DROP INTO EACH EYE EVERY EVENING 09/05/2021 promethazine-de xtromethorphan (PHENERGAN-DM) 6.25-15 mg/5 mL syrup TAKE 5 ML BY MOUTH EVERY 6 HOURS NEEDED FOR COUGH FOR 14 DAYS 09/09/2021 calcium as carbonate (TITRALAC) 420 mg (168 mg elemental) Tablet, Chewable Take by mouth. magnesium oxide 250 mg magnesium Tablet Take by mouth. potassium chloride (KLOR-CON) 10 mEq Extended Release tablet Take 10 mEq by mouth. omega-3 fatty acids-fish oil 300-1,000 mg Capsule Take by mouth daily. cholecalciferol , Vitamin D3, 125 mcg (5,000 unit) Capsule Take 5,000 Units by mouth daily. blood sugar diagnostic (OneTouch Verio test strips) Strip Use to check BG 3x daily. E11.65 300 Strip 3 07/13/2021 lancets (OneTouch Delica Lancets) 30 gauge Use to check BG 3x daily. E11.65 300 Each 3 07/13/2021 Blood-Glucose Meter (OneTouch Verio Flex meter) Use to check BG 3x daily. E11.65 1 Each 07/13/2021 flash glucose sensor (FreeStyle Lucila 2 Sensor) Kit Replace every 14 days. 6 Kit 3 07/13/2021 flash glucose scanning reader (FreeStyle Lucila 2 [place]) [facility] Use to check BG. 1 Each 07/13/2021 dulaglutide (TRULICITY) 3 mg/0.5 mL injection Inject 0.5 mL (3 mg) by subcutaneous injection every 7 days. 6 mL 3 07/13/2021 atorvastatin (LIPITOR) 40 mg tablet Take 1 Tablet (40 mg) by mouth daily. 90 Tablet 3 11/11/2020 nitrofurantoin (MACROBID) 100 mg capsule Take 1 Capsule (100 mg) by mouth 2 times daily. 28 Capsule 0 08/06/2020 Biotin 1 mg Tablet 1,000 mcg. 07/25/2018 insulin lispro (HUMALOG KWIKPEN INSULIN SUBCUT) Inject by subcutaneous injection. 15 units with lunch 20 units with supper 10 units with snack SQ TID AC plus correction Max 75 units a day 07/06/2020 documented as of this encounter Miscellaneous Notes * Therapy Treatment - Hai Lee, Physical Therapist - 10/09/2024 2:30 PM CDT [facility] Outpatient Physical Therapy Treatment Date: 10/09/2024 Patient Name: Sandra Lemus Date of : 1955 CSN: [id number] Primary Diagnosis (medical): M54.9, G89.29 (ICD-10-CM) - 724.5, 338.29 (ICD-9-CM) - Chronic back pain, unspecified back location, unspecified back pain laterality Treatment Diagnosis (therapy): BLE pain, Lumbar pain, core weakness, general weakness Referring Physician: Armando Wilkinson DO Certification requested from: 09/12/24 to: 11/07/24 Time in: 1435 Time out: 1516 Visit#: 2 PHYSICIAN AUTHORIZATION: Physician signature, date and time required for certification Physician Signature: Date: Time: Please electronically sign or return signed form to to ensure continuity of care. Clinical Presentation: Stable and/or uncomplicated EVALUATION COMPLEXITY: Low Complexity Based on patient's self reporting, therapist's objective findings and professional determinations Medical History Past Medical History: Diagnosis Date Calculus of kidney Depression Fever Frequent urination Gall stones resolved with surgery Headache(784.0) Hearing reduced Hemorrhoids per pt HTN (hypertension) Hyperlipidemia Inflammatory arthritis Joint pain Non-insulin dependent diabetes mellitus accuchecks done occ Pain at rest Pneumonia Skin cancer Temporomandibular joint disorders, unspecified Past Surgical History: Procedure Laterality Date HX EAR SURGERY Right ear - 2 times HX HYSTERECTOMY 1995 without oopherectomy HX SURGICAL OTHER 05/09/2012 EXAMINATION UNDER ANESTHESIA performed by Terrance Malik DO at [facility] [place] ARTHROSCOPY KNEE DIAGNOSTIC W/WO SYNOVIAL BX SPX 11/07/2012 KNEE ARTHROSCOPY performed by Sourav Taylor MD at [facility] [place] ARTHRS KNE SURG W/MENISCECTOMY MED/LAT W/SHVG 11/07/2012 KNEE MENISCECTOMY ARTHROSCOPIC performed by Sourav Taylor MD at [facility] [place] KNEE ABRASION ARTHRP/VENDING MACHINE REPAIRER DRLG/MICROFX 11/07/2012 KNEE CHONDROPLASTY ARTHROSCOPIC performed by Sourav Taylor MD at [facility] [place] CHOLECYSTECTOMY 05/09/2012 CHOLECYSTECTOMY performed by Shalom Vilchis DO at [facility] [place] CHOLECYSTECTOMY 05/09/2012 CHOLECYSTECTOMY performed by Terrance Malik DO at [facility] [place] COLONOSCOPY FLX DX W/COLLJ SPEC WHEN PFRMD 04/18/2012 COLONOSCOPY performed by Michael Rodriges MD at [facility] [place] CYSTOURETHROSCOPY 05/09/2012 CYSTOSCOPY performed by Terrance Malik DO at [facility] [place] EXPLORATORY LAPAROTOMY CELIOTOMY W/WO BIOPSY SPX 05/09/2012 LAPAROTOMY EXPLORATORY performed by Terrance Malik DO at [facility] [place] LAPAROSCOPY ENTEROLYSIS SEPARATE PROCEDURE 05/09/2012 ABDOMINAL LYSIS OF ADHESIONS LAPAROSCOPY performed by Terrance Malik DO at [facility] [place] OMNTC EPIPLOECTOMY RESCJ OMENTUM SPX 05/09/2012 OMENTECTOMY performed by Terrance Malik DO at [facility] [place] SALPINGO-OOPHORECTOMY COMPL/PRTL UNI/BI SPX 05/09/2012 SALPINGO-OOPHORECTOMY ABDOMINAL APPROACH performed by Terrance Malik DO at [facility] [place] UNLISTED PROCEDURE RECTUM 05/09/2012 PROCTOSCOPY performed by Terrance Malik DO at [facility] OR Subjective Onset Date: 2-3 years ago Start of Care Date: 10/09/2024 Cause of injury: no JAILENE Pain Rating: Patient rates their current pain at a 1/10 Patient rates their pain at worst at a 9/10 Pain Description: sharp Patient Self Rating of Health: Poor Occupation/Activity: Patient is unable to work currently, but would like to be able to Subjective: Pt states low back pain as well as L upper leg pain and dysfunction. Pain in the L quadand anterior hip. Pt states her low back pain is worse with prolonged standing or walking. Able to stand about 2 minutes maybe before pain starts. Has been using rollator walker for the last few weeks and has noticed she can walk further when using is. Pt states before the walker, she needed to furniture surf to get around her home. Pt states her feet drag some when she walks. Pts immobility is mostly due to pain, as well as weakness and balance. Pt lives at home with her and he is ableto help Sandra out some. States duration of 2-3 years. Pt states she is mostly sedentary throughout her days, but tries to get up occasionally throughout the day. Pt states she has fallen multiple times in the last year, she is unsure of how many incidents. Pt states her goal is to be able to walking her home and in the community without pain, even with the walker. Pt is poor historian, unable to really describe her back and leg pain regarding location and patterns and description. Pt states impaired sleep due to multiple reasons. Pt states she drinks several sodas a day and has tried to quitebut is difficult and does not get good nutrition. Discussed general healthy eating and hydration habits. 10/09/24: Patient states her back is still about the same as it was at time of eval. Patient states she has not been doing her HEP at home at all since her eval appointment due to difficulty doing them in her bed and inability to get to the floor to do them. She states she knows she is making excuses and that she wants to be better at being more consistent. Objective Measures & Problem List Discussed with the patient prior to contact the need for and importance of palpating the target tissues associated with the patients current condition, what and where those tissues are, and how that helps in evaluation and determination of the course of action to take, and patient consented. Observation: Forward flexed, stooped posture Precautions: Fall ROM deficits: BL hip ROM mild limited Strength deficits: normal unless otherwise stated General weakness in BLEs Outcome measures: 5xSTS: 20 seconds Assessment: Pt is 69 y.o. female presenting to PT with c/c of chronic low back and BLE pain as well as unsteadiness on her feet and history of multiple falls in the past year. Pt ambulates with rollator walker as AD and with forward flexed posture which is partially structural and partially functional. Pt demonstrates with slow gait speed, decreased LE strength and power, and impaired static and dynamic balance making patient at higher risk for falls. Pt performed 5xSTS this visit in 20 seconds indicating reduce LE strength and power, making patient at higher fall risk. Upon objective testing, general weakness was found in BLEs globally. Today's session focused a lot on patient education regarding lifestyle and activity modification. Pt stands to benefit from a course of skilled PT in order to address deficits, work towards patient goals, reduce fall risk, and improve patient's tolerance to IADLs. 10/09/24: Patient continues to have significant pain in her low back and BLE pain. Patient has been un-compliant with her HEP and does not tolerate much activity in PT. Patient was reminded of the importance to try to complete HEP as instructed and to get up and move and walk frequently throughout the day around her home. Patient was able to tolerate several low-level activities today with modifications but movements is slow and still somewhat painful. Treatment will continue to focus on pain modulation and education of activity modification. TREATMENT Therapeutic Exercise: 41 minutes Patient education LTR x20 ea SLR 2x10 ea Bridges 2x10 LAQ x20 ea Figure 4 stretch push and pull 2x60 ea STS Mini squats, 10 sec hold at bottom position Seated adductor ball squeeze 2x10, 5 holds Standing marching in Pbars, progress to AE when able Hurdles, forward and lateral Manual Therapy: minutes Neuromuscular Reeducation: minutes Therapeutic Activity: minutes Gait Training: minutes Modalities minutes NONE Education/ Collaboration provided Today: HEP HEP reviewed Plan of care, Treatment Goals and D/C criteria were discussed and agreed upon by patient Expectations for rehabilitation TOTAL TIME 41 minutes Goals Patient???s Subjective Goals: Pt would like to be able to walk 500 ft with minimal exacerbation of s/s Pt would like to improve her balance and report no LOB within the next 2 months Therapy Potential: Fair for the following goals: General Goals: Patient to be well educated on rehabilitation principles, proper body mechanics, precautions duringhealing, basic time frames for healing. Be independent with a specifically designed Home Exercise Program for their condition. Be able to report a 80 % improvement in symptoms and function. Rate pain at 1/10 at rest and 2/10 or less with normal daily activities. Report improvements in ability to sleep for greater than 6 hours without symptoms waking them up. Return to prior work status or modified work duty if applicable. Demonstrate proper, safe transfers from different surface levels and no symptom increase. Patient to dress independently. Demonstrate improved posture where deficits were note above. Long-term Goals: (Time Frame 09/12/24- 10/24/24) In 8 weeks, patient will demonstrate full independence with HEP and maintenance program prescribed by PT in order to maximize patient independence and function and to prevent further occurrence of current condition. In 8 weeks, patient will demonstrate with global BL hip and knee strength of 4/5 in order to restore full and pain-free motion while completing functional, occupation, and recreational activities andhelp prevent future injury. In 8 weeks, patient will demonstrate with improve 5xSTS score of <15 seconds in order to demonstrate improved LE strength and power and reduced fall risk Short-term Goals: (Time Frame 09/12/24- 10/10/24) In 4 weeks, patient will demonstrate full compliance with HEP in order to facilitate patient independence in their own POC and to help further improve current deficits. In 4 weeks, patient will present with an average pain rating decrease of 2 or more points on a 10 point scale in to demonstrate clinical significance and to improve patient tolerance of rehab programand their daily functional activities. In 4 weeks, patient will demonstrate with improved pain-free AROM in affected body part that is within 50% of the unaffected side or PLOF in order to improve patient functional movement and independence with ADLs and IADLs. In 4 weeks, patient will demonstrate safe and appropriate AD use as educated by PT in order to improve patient independence, reduce fall risk with functional movements, and prevent further exacerbation of condition. Patient has Good rehab potential to obtain goals given compliance with the Physical Therapy plan of care. Education: Plan of care, treatment goals & discharge criteria were discussed and agreed upon with the patient, Basic rehabilitation principles regarding the above findings Patient provided with verbal instruction and demonstration of HEP in clinic this visit as well as printed handout with detailed instructions for each exercise Plan/Frequency Patient will be seen 1 times per week for 6 weeks for treatment consisting of, but not limited to manual therapy, therapeutic exercise for strengthening, modalities for pain relief, proprioceptive exercises, strain reduction education, posture education, SSS, stretching, gait instruction She will also receive a home exercise program, updated by therapist as patient progresses through plan of care. Thank you for the opportunity to work with this individual. If you have any questions about the above information, please contact me Hai Lee, Physical Therapist [facility] [place] [place] [place] [facility] documented in this encounter Plan of Treatment Upcoming Encounters Date Type Department Care Team (Late st Contact Info) Description 10/23/2024 2:30 PM CDT Appointment [facility] [place] [address] [place] [id number] Armando Wilkinson, [address] [place] [phone] Hai Lee Physical Therapist 03/26/2025 1:20 PM BATH MIX OPERATOR Office Visit [facility] [address] [phone] Carrie Osuna PA [address] [address] documented as of this encounter Visit Diagnoses Not on filedocumented in this encounter
--- OUTSIDE RECORDS SUMMARY | 2024-10-16 14:18 | XMS_ITS | Encounter Summary ---
Author Organization [facility] Address [address] [place] [address] Care Team Providers Care Police Captain Name Role Phone Unavailable Primary Care Provider Unavailabl e Reason for Visit * Physical Therapy (Routine) - Authorized Specialty Diagnoses / Procedures Referred By Jaqueline t Referred To Contact Physical Therapy Diagnoses Chronic back pain, unspecified back location, unspecified back pain laterality Armando Wilkinson, DO [address] [place] [address] Phone: tel: fax: [facility] [place] [address] [facility] [address] [place] [address] Phone: tel: fax: Referral ID Status Reason Start Date Expiration Date V isits Requested Visits Authorized [id number] Authorized 05/02/2024 10/28/2024 6 4 Encounter Details Date Type Department Care Team (Late st Contact Info) Description 10/16/2024 2:18 PM CDT - 10/16/2024 11:59 PM CDT Hospital Encounter [facility] [place] [address] [facility] [address] [place] [address] Armando Wilkinson, [address] [place] [address] Hai Lee, Physical Therapist Arrived Discharge Disposition: Home or Self Care Social History Tobacco Use Types Packs/Day Years Used Date Smoking Tobacco: Never Smokeless Tobacco: Never Alcohol Use Standard Drinks/Week Comments Yes 0 (1 standard drink = 0.6 oz pur e alcohol) Comments No Sex and Gender Information Value Date Recorded Sex Assigned at Not on file 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 9 mL 3 06/01/2022 Insulin [place], Disposable, (BD Alexus 2nd Gen Pen Needle) [...] flash glucose scanning reader (FreeStyle Lucila 2 [place]) [facility] Use to check BG. 1 Each 07/13/2021 [...] Treatment - Hai Lee, Physical Therapist - 10/16/2024 2:30 PM CDT [facility] Outpatient Physical Therapy Treatment Date: 10/16/2024 Patient Name: Sandra Lemus Date of : 1955 CSN: [id number] Primary Diagnosis (medical): M54.9, G89.29 (ICD-10-CM) - 724.5, 338.29 (ICD-9-CM) - Chronic back pain, unspecified back location, unspecified back pain laterality Treatment Diagnosis (therapy): BLE pain, Lumbar pain, core weakness, general weakness Referring Physician: Armando Wilkinson DO Certification requested from: 09/12/24 to: 11/07/24 Time in: 1435 Time out: 1515 Visit#: 3 PHYSICIAN AUTHORIZATION: Physician signature, date and time [...] ANESTHESIA performed by Terrance Malik DO at [facility] [place] ARTHROSCOPY KNEE DIAGNOSTIC W/WO SYNOVIAL BX SPX 11/07/2012 KNEE ARTHROSCOPY performed by Sourav Taylor MD at [facility] [place] ARTHRS KNE SURG W/MENISCECTOMY MED/LAT W/SHVG 11/07/2012 KNEE MENISCECTOMY ARTHROSCOPIC performed by Sourav Taylor MD at [facility] [place] KNEE ABRASION ARTHRP/ACCOUNTING MANAGER CPA DRLG/MICROFX 11/07/2012 KNEE CHONDROPLASTY ARTHROSCOPIC performed by Sourav Taylor MD at [facility] [place] CHOLECYSTECTOMY 05/09/2012 CHOLECYSTECTOMY performed by Shalom Vilchis DO at [facility] [place] CHOLECYSTECTOMY 05/09/2012 CHOLECYSTECTOMY performed by Terrance Malik DO at [facility] [place] COLONOSCOPY FLX DX W/COLLJ SPEC WHEN PFRMD 04/18/2012 COLONOSCOPY performed by Michael Rodriges MD at [facility] [place] CYSTOURETHROSCOPY 05/09/2012 CYSTOSCOPY performed by Terrance Malik DO at [facility] [place] EXPLORATORY LAPAROTOMY CELIOTOMY W/WO BIOPSY SPX 05/09/2012 LAPAROTOMY EXPLORATORY performed by Terrance Malik DO at [facility] [place] LAPAROSCOPY ENTEROLYSIS SEPARATE PROCEDURE 05/09/2012 ABDOMINAL LYSIS OF ADHESIONS LAPAROSCOPY performed by Terrance Malik DO at [facility] [place] OMNTC EPIPLOECTOMY RESCJ OMENTUM SPX 05/09/2012 OMENTECTOMY performed by Terrance Malik DO at [facility] [place] SALPINGO-OOPHORECTOMY COMPL/PRTL UNI/BI SPX 05/09/2012 SALPINGO-OOPHORECTOMY ABDOMINAL APPROACH performed by Terrance Malik DO at [facility] [place] UNLISTED PROCEDURE RECTUM 05/09/2012 PROCTOSCOPY performed by Terrance Malik DO at [facility] Subjective Onset Date: 2-3 years ago Start of Care Date: 10/16/2024 Cause of injury: no JAILENE Pain Rating: [...] to be better at being more consistent. 10/16/24: Patient states her back feels not too bad when sitting but hurts a lot when walking and her radicular symptoms also get worse after walking. Patient fell in her bathroom yesterday and was able to get herself up eventually after about 20 minutes. Patient states she has been wheezing while breathing for about the last month or so. Patient was encouraged to talk to her Dr about it. Pt states it keeps her up a lot at night and that she wheezes pretty much all the time, even at rest Objective Measures & Problem List Discussed with [...] pain modulation and education of activity modification. 10/16/24: Patient continues to present with significant back pain and BLE pain that is exacerbated with activity. Patient continues to walk short distances with her rollator walker, but requires to bewheeled in it for longer distances. Patient was able to tolerate some activities today but has not been able to progress with activities, still primarily trying to modulate pain at this time. Patienthas not been doing any part of her HEP she states due to no good location in her house to do them at. Patient has one more authorized PT visit at this time and was notified that we will likely plan to DC at next visit due to her lack of progress at this time. Patient was encouraged to follow up again with her Dr to seek additional possibilities to reduce her pain, as well as possible assessment and treatment for her wheezy breathing. IFC was trialed today in hopes to help reduce patient's pain,patient requested to discontinue after about 5 minutes due to being unable to find a comfortable position and that it did not really seem to relieve her pain she stated. TREATMENT Therapeutic Exercise: 30 minutes Patient education LTR x20 ea SLR [...] Therapeutic Activity: minutes Gait Training: minutes Modalities 10 minutes IFC to lumbar Education/ Collaboration provided Today: HEP HEP reviewed Plan of care, Treatment Goals and D/C criteria were discussed and agreed upon by patient Expectations for rehabilitation TOTAL TIME 40 minutes Goals Patient???s Subjective Goals: Pt would [...] please contact me Hai Lee, Physical Therapist [facility] [place] [place] [place] Out[facility] Physical Therapy documented in this encounter Plan of Treatment Upcoming Encounters Date Type Department Care Team (Late st Contact Info) Description 10/23/2024 2:30 PM CDT Appointment [facility] [place] [address] [place] [address] Armando Wilkinson, DO [address] [place] [address] Hai Lee, Physical Therapist 03/26/2025 1:20 PM COMMUNITY THEATER ACTOR Office Visit [facility] Endocrinology [facility] [address] [address] Carrie Osuna PA [address] [facility] [address] [place] [address] documented as of this encounter Visit Diagnoses Not on filedocumented in this encounter
[2024-10-17] VITALS (9 sets, daily range): BP systolic 139–183; BP diastolic 74–89; PULSE 74–138; RESP 14–22; TEMP 36.4–37.2; O2SAT 93–98; BMI 34.5; BMI 35.9
--- OUTSIDE RECORDS SUMMARY | 2024-10-17 02:20 | XMS_ITS | Encounter Summary ---
Author Organization [facility] Address [address] [place] [address] Care Team Providers Care Associate Professor Of Surgery Name Role Phone Mau Terry MD Primary Care Provider [phone] Encounter Details Date Type Department Care Team (Latest Contact Info) Description 01/19/2004 Outpatient Historical [facility]- [place] [address] [facility] [address] [place] [address] Russell Madrid MD [address] [place] [phone] HYPERTENSION NOS (Primary Dx) Social History Tobacco Use Types Packs/Day Years Used Date Smoking Tobacco: Never Assessed Comments Unknown Sex and Gender Information Value Date Recorded Sex Assigned at Not on file 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
--- OUTSIDE RECORDS SUMMARY | 2024-10-17 02:20 | XMS_ITS | Encounter Summary ---
Author Organization [facility] Address [address] [place] [address] Care Team Providers Care Insecticide Maker Name Role Phone Mau Terry MD Primary Care Provider [phone] Encounter Details Date Type Department Care Team (Latest Contact Info) Description 03/03/2004 Outpatient Historical [facility] [address] 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
--- OUTSIDE RECORDS SUMMARY | 2024-10-17 02:20 | XMS_ITS | Encounter Summary ---
Author Organization [facility] Address [address] [place] [address] Care Team Providers Care Elementary Spanish Teacher Name Role Phone Mau Terry MD Primary Care Provider [phone] Encounter Details Date Type Department Care Team (Late st Contact Info) Description 04/26/2007 Outpatient [facility] Breast [facility] [address] [place] [address] Mau Terry MD [address] [place] [phone] Social History Tobacco Use Types Packs/Day Years Used Date Smoking Tobacco: Never Assessed Comments Unknown Sex and Gender Information Value Date Recorded Sex Assigned at Not on file 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
--- OUTSIDE RECORDS SUMMARY | 2024-10-17 02:20 | XMS_ITS | Encounter Summary ---
Author Organization [facility] Address [address] [place] [address] Care Team Providers Care Food Trades Assistants Name Role Phone Mau Terry MD Primary Care Provider [phone] Encounter Details Date Type Department Care Team (Latest Contact Info) Description 01/11/2005 Outpatient Historical [facility] Medicine [place] [address] [facility] [address] [place] [phone] Sven Kimball, [place] NO ADDRESS ON FILE HYPERTENSION NOS (Primary Dx); CARDIAC DYSRHYTHMIAS NEC; MALAISE AND FATIGUE NEC Social History Tobacco Use Types Packs/Day Years Used Date Smoking Tobacco: Never Assessed Comments Unknown Sex and Gender Information Value Date Recorded Sex Assigned at Not on file 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
--- OUTSIDE RECORDS SUMMARY | 2024-10-17 02:20 | XMS_ITS | Encounter Summary ---
Author Organization [facility] Address [address] [place] [address] Care Team Providers Care Marketing Analyst Name Role Phone Mau Terry MD Primary Care Provider [phone] Encounter Details Date Type Department Care Team (Late st Contact Info) Description 05/16/2007 Outpatient Historical [facility] [address] [facility] [address] [place] [address] Social History Tobacco Use Types Packs/Day Years Used Date Smoking Tobacco: Never Assessed Comments Unknown Sex and Gender Information Value Date Recorded Sex Assigned at Not on file 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
--- OUTSIDE RECORDS SUMMARY | 2024-10-17 02:20 | XMS_ITS | Encounter Summary ---
Author Organization [facility] Address [address] [place] [address] Care Team Providers Care Car Bracer Name Role Phone Mau Terry MD Primary Care Provider Encounter Details Date Type Department Care Team (Late st Contact Info) Description 01/19/2004 Outpatient Historical [facility] General and Trauma Surgery-[address] [place] [address] Alejo Burton MD [address] [facility] [address] [place] [phone] LATE EFFEC SKULL/FACE FX (Primary Dx); HYPERTENSION NOS; OTHER MALAISE AND FATIGUE Social History Tobacco Use Types Packs/Day Years Used Date Smoking Tobacco: Never Assessed Comments Unknown Sex and Gender Information Value Date Recorded Sex Assigned at Not on file 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
--- OUTSIDE RECORDS SUMMARY | 2024-10-17 02:20 | XMS_ITS | Encounter Summary ---
Author Organization [facility] Address [address] [place] [address] Care Team Providers Care Concrete Finisher Apprentice Name Role Phone Mau Terry MD Primary Care Provider [phone] Encounter Details Date Type Department Care Team (Late st Contact Info) Description 07/08/2002 Outpatient Historical [facility] Calloway, Jonh [place] MD [address] [place] [phone] LUMP OR MASS IN BREAST (Primary Dx) Social History Tobacco Use Types Packs/Day Years Used Date Smoking Tobacco: Never Assessed Comments Unknown Sex and Gender Information Value Date Recorded Sex Assigned at Not on file 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
--- OUTSIDE RECORDS SUMMARY | 2024-10-17 02:20 | XMS_ITS | Encounter Summary ---
Author Organization [facility] Address [address] [place] [address] Care Team Providers Care Director Process Name Role Phone Mau Terry MD Primary Care Provider [phone] Encounter Details Date Type Department Care Team (Latest Contact Info) Description 09/13/2004 Outpatient Historical [facility]- [address] [place] [phone] Sven Kimball, [place] NO ADDRESS ON FILE OTHER UNSPEC SLEEP APNEA (Primary Dx); UNCERTAIN BEHAV NEOPL SKIN Social History Tobacco Use Types Packs/Day Years Used Date Smoking Tobacco: Never Assessed Comments Unknown Sex and Gender Information Value Date Recorded Sex Assigned at Not on file 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
--- OUTSIDE RECORDS SUMMARY | 2024-10-17 02:20 | XMS_ITS | Clinical Summary ---
Author Organization [facility] Estela Tadeo [facility] Address [address] [place] [address] Care Team Providers Care Paper Wood Cutter Name Role Phone Unavailable Primary Care Provider Unavailabl e Allergies Active Allergy Reactions Criticality Noted Date Comments Sitagliptin Unknown 07/06/2020 Medications insulin lispro (HUMALOG KWIKPEN INSULIN SUBCUT) Inject by subcutaneous injection. 15 units with lunch 20 units with supper 10 units with snack SQ TID AC plus correction Max 75 units a day 1 Active nitrofurantoin (MACROBID) 100 mg capsule Take 1 Capsule (100 mg) by mouth 2 times daily. 28 Capsule 0 1 Active Biotin 1 mg Tablet 1,000 mcg. 9 Active atorvastatin (LIPITOR) 40 mg tablet Take 1 Tablet (40 mg) by mouth daily. 90 Tablet 3 1 Active blood sugar diagnostic (OneTouch Verio test strips) Strip Use to check BG 3x daily. E11.65 300 Strip 3 2 Active lancets (OneTouch Delica Lancets) 30 gauge Use to check BG 3x daily. E11.65 300 Each 3 2 Active Blood-Glucose Meter (OneTouch Verio Flex meter) Use to check BG 3x daily. E11.65 1 Each 2 Active flash glucose sensor (FreeStyle Lucila 2 Sensor) Kit Replace every 14 days. 6 Kit 3 2 Active flash glucose scanning reader (FreeStyle Lucila 2 [place]) Misc Use to check BG. 1 Each 2 Active dulaglutide (TRULICITY) 3 mg/0.5 mL injection Inject 0.5 mL (3 mg) by subcutaneous injection every 7 days. 6 mL 3 2 Active NovoLOG Flexpen U-100 Insulin 100 unit/mL (3 mL) pen syringe INJECT THREE TIMES DAILY 15 UNITS SUBCUTANEOUSLY AT LUNCHTIME, 20 UNITS AT SUPPERTIME, 10 UNITS WITH SNACK. MAXIMUM DOSE 75 UNITS PER DAY 2 Active irbesartan (AVAPRO) 150 mg tablet Take 150 mg by mouth daily. 2 Active latanoprost (XALATAN) 0.005 % solution INSTILL 1 DROP INTO EACH EYE EVERY EVENING 2 Active promethazine-d extromethorpha n (PHENERGAN-DM) 6.25-15 mg/5 mL syrup TAKE 5 ML BY MOUTH EVERY 6 HOURS NEEDED FOR COUGH FOR 14 DAYS 2 Active calcium as carbonate (TITRALAC) 420 mg (168 mg elemental) Tablet, Chewable Take by mouth. Activ e magnesium oxide 250 mg magnesium Tablet Take by mouth. Activ e potassium chloride (KLOR-CON) 10 mEq Extended Release tablet Take 10 mEq by mouth. Active omega-3 fatty acids-fish oil 300-1,000 mg Capsule Take by mouth daily. Active cholecalcifero l, Vitamin D3, 125 mcg (5,000 unit) Capsule Take 5,000 Units by mouth daily. Active insulin detemir U-100 (Levemir FlexTouch U-100 Insuln) 100 unit/mL pen syringe INJECT 40 UNITS SUBCUTANEOUSLY TWICE DAILY 45 mL 3 2 Active Insulin [place], Disposable, (BD Alexus 2nd Gen Pen Needle) 32 gauge x 5/32 Needle Use to inject insulin four times daily 400 Each 2 Active semaglutide (Ozempic) 1 mg/dose (4 mg/3 mL) Pen Injector Inject 1.0 mg weekly. 9 mL 3 3 Active cetirizine (ZyrTEC) 10 mg tablet Take 10 mg by mouth daily. Active hydrOXYzine HCL (ATARAX) 10 mg tablet Take 10 mg by mouth 3 times daily as needed for Itching. Active pantoprazole (PROTONIX) 40 mg Tablet, Delayed Release (E.C.) Take 40 mg by mouth daily. Active galantamine (RAZADYNE) 4 mg tablet Take 4 mg by mouth 2 times daily. Active Jardiance 10 mg tablet Take 10 mg by mouth. 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 Lysis of adhesion. Resection of pelvic mass-believed to contain the right tube and ovary and clinically consistent with a tuboovarian abscess. Omentectomy. Cystoscopy. Proctoscopy, Cholecystectomy on 05/09/12. The left ovary was not easily visualized at the time of surgery. The patient is Jehovah witness and at loss 750 mL just getting the mass out. The decision was made to defer further resection/dissection for the left adnexa. 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 Unspecified essential hypertension 12/30/2007 Overview (08/18/2020): BP goal is <130/80. Esophageal reflux 12/30/2007 Resolved Problems Problem Noted Date Diagnosed Date Resolved Date Detrusor instability of bladder 03/17/2013 04/03/2013 S/P left knee arthroscopy w/ med. meniscectomy 01/15/2013 04/03/2013 Ileus, postoperative 05/15/2012 03/06/ 013 Tubal ovarian abscess- full of purulent fluid (pending cultures) 05/09/2012 12/25/2012 Refusal of blood transfusion s as patient is Buddhism 04/29/2012 01/01/2013 Abdominal or pelvic swelling , mass, or lump, other specified site 04/29/2012 05/27/2012 Rectal bleeding 04/18/2012 01/01/2013 Encounters Date Type Department Care Team Description 10/16/2024 2:18 PM CDT - 10/16/2024 11:59 PM CDT Hospital Encounter [facility] Therapy [facility] [address] [facility] [address] [place] [address] Armando Wilkinson DO Peters, Jeffrey B, Physical Therapist Arrived Discharge Disposition: Home or Self Care 10/09/2024 2:30 PM CDT - 10/09/2024 11:59 PM CDT Hospital Encounter [facility] [address] [facility] [address] [place] [address] Armando Wilkinson DO Peters, Jeffrey B, Physical Therapist Discharge Disposition: Home or Self Care 09/24/2024 2:20 PM CDT Office Visit [facility] Endocrin[facility] [address] [place] [address] Carrie Osuna PA Type 2 diabetes mellitus with hyperglycemia, with long-term current use of insulin ([facility]) (Primary Dx) 09/16/2024 Telephone [facility]ocrin[facility] [address] [place] [address] Carrie Osuna PA Patient Communication (Called to remind about upcoming appointment date and time as requested by pt and . ) 09/12/2024 11:00 AM CDT - 09/12/2024 11:59 PM CDT Hospital Encounter [facility] Therapy [facility] [address] [facility] [address] [place] [address] Armando Wilkinson DO Peters, Jeffrey B, Physical Therapist Discharge Disposition: Home or Self Care 09/10/2024 External Device Data STL ABSTRACTION Provider, Abstract 09/09/2024 External Device Data STL ABSTRACTION Provider, Abstract from Last 3 Months Immunizations Immunization Administration Dates Next Due (PNEUMOVAX 23)(50 YRS UP) PN EUMOCOCCAL POLYSACCHARIDE (PPV23) 0.5 ML, IM 03/28/2006 Influenza Seasonal Unspecified Formulation IM Influenza Vaccine Split 3+ Yrs IM 04/12/2012, Family History Medical History Relation Name Comments Glaucoma Father Heart Disease Father Hypertension Father Arthritis-osteo Mother Cataract Mother Diabetes Mother Heart Disease Mother Hypertension Mother Amblyopia Neg Hx Blindness Neg Hx Breast Cancer Neg Hx Colon Cancer Neg Hx Detachment/Tears Neg Hx Macular Degen Neg Hx Ovarian Cancer Neg Hx Strabismus Neg Hx Relation Name Status Comments Brother 1 Alive Brother 2 Alive Brother 3 Alive Brother 4 Alive Father Mother Sister 1 Alive Sister 2 Alive Sister 3 Alive Son Alive Social History Tobacco Use Types Packs/Day Years Used Date Smoking Tobacco: Never Smokeless Tobacco: Never Tobacco Cessation:Counseling Given: No Alcohol Use Standard Drinks/Week Comments Yes 0 (1 standard drink = 0.6 oz pur e alcohol) Comments No Sex and Gender Information Value Date Recorded Sex Assigned at Not on file Legal Sex Female 12:33 PM COMIC ILLUSTRATOR Gender Identity Not on file Sexual Orientation Not on file Last Filed Vital Signs Vital Sign Reading Time Taken Comments Blood Pressure 120/80 09/24/2024 2:34 PM CDT Pulse 78 09/24/2024 2:34 PM CDT Temperature - - Respiratory Rate 16 06/01/2022 11:31 AM COMIC ILLUSTRATOR Oxygen Saturation 98% 09/24/2024 2:34 PM CDT Inhaled Oxygen Concentration - - Weight 87.8 kg (193 lb 9.6 oz) 09/24/2024 2:34 P M CDT Height 160 cm (5' 3 ) 09/24/2024 2:34 PM CDT Body Mass Index 34.29 09/24/2024 2:34 PM CDT Plan of Treatment Upcoming Encounters Date Type Department Care Team (Late st Contact Info) Description 10/23/2024 2:30 PM CDT Appointment [facility] Physical Therapy Services [place] [address] [place] [address] Armando Wilkinson, [address] [place] [address] Hai Lee, Physical Therapist 03/26/2025 1:20 PM COMIC ILLUSTRATOR Office Visit [facility] Endocrinology [facility] [address] [address] Carrie Osuna, YAMILET [address] [place] [address] Health Maintenance Due Date Last Done Comments DTAP/TDAP/TD VACCINES (1 - Tdap) 1976 FIT-DNA Q 3 years 2002 FIT/FOBT Q 1 year 2002 Flex Sig/CT Colonography Q 5 years 2002 PNEUMOCOCCAL VACCINE 50+ YEA RS (2 of 2 - PCV) 03/28/2007 03/28/2006 ZOSTER VACCINE (1 of 2) 2007 BREAST CANCER SCREENING 12/28/2012 12/29/19 12, 12/29/2011, 11/30/2010, Additional history exists DIABETES ANNUAL FOOT EXAM 04/12/2013 04/12/2012 COLORECTAL SCREENING 04/18/2017 04/18/2012 Colorectal Cancer Screening 04/18/2017 RSV VACCINE (60+ or ) (1 - Risk 60-74 years 1-dose series) 2017 DIABETES ANNUAL RETINAL EXAM 01/04/2021, 01/05/2020, 04/21/2013, Additional history exists DIABETES MICROALBUMIN ANNUAL SCREEN 07/06/2021 07/06/2020, 03/23/2020, 03/01/2020, Additional history exists OSTEOPOROSIS SCREENING 2022 INFLUENZA VACCINE (#1) 2023 2, 01/19/2011, 03/28/2006 [place] Preventative Visit/Annual Wellness Visit 04/23/2024 01/08/2009 DIABETES HBA1C Q 6 MONTHS 12/24/20242024, 03/17/2024, 12/06/2023, Additional history exists LDL CHOLESTEROL ANNUAL 03/17/2025 , 07/06/2020, 09/03/2018 Procedures Procedure Name Priority Date/Time Associated Diagnosis Comments HEMOGLOBIN A1C Routine 06/23/2024 4:23 PM COMIC ILLUSTRATOR Type 2 diabetes mellitus with hyperglycemia, with long-term current use of insulin ([facility]) LIPID PANEL Routine 03/17/2024 MICROALBUMIN/CREATIN INE RATIO, RANDOM UR Routine 07/06/2020 11:54 AM CDT HM DIABETES EYE EXAM 01/05/2020 12:00 AM CDT MAMMO SCREEN BILAT W OR WO CAD Routine 12/29/2011 2:40 PM CDT Other screening mammogram from Last 3 Months or Most Recently Relevant to Health Maintenance Results * (ABNORMAL) HEMOGLOBIN A1C (06/23/2024 4:23 PM COMIC ILLUSTRATOR) HEMOGLOBIN A1C 12.4(H) <5.7 % of total Hgb [facility] Comment: For someone without known diabetes, a hemoglobin A1c value of 6.5% or greater indicates that they may have diabetes and this should be confirmed with a follow-up test. For someone with known diabetes, a value <7% indicates that their diabetes is well controlled and a value greater than or equal to 7% indicates suboptimal control. A1c targets should be individualized based on duration of diabetes, age, comorbid conditions, and other considerations. Currently, no consensus exists regarding use of hemoglobin A1c for diagnosis of diabetes for children. ESTIMATED AVERAGE GLUCOSE (MG/DL) 309 mg/dL [facility] ESTIMATED AVERAGE GLUCOSE (MMOL/L) 17.1 mmol/L [facility] Comment: FASTING:NO FASTING: NO Test Performed at: [facility] [address] [place] [address] Paramjit Salazar MD Blood 06/23/2024 4:23 PM COMIC ILLUSTRATOR 06/23/2024 4:23 PM COMIC ILLUSTRATOR us Carrie WOODARD CHEMISTRY ORDERABLES Final Re sult [facility] [phone] [facility] [address] [facility] [place] [address] * LIPID PANEL (03/17/2024) ABSTRACTED CHOLESTEROL 245 ABSTRACTED TRIGLYCERIDE 387 ABSTRACTED HDL 41 ABSTRACTED LDL CALCULATED 127 Blood 03/17/2024 us Abstract Provider CHEMISTRY ORDERABLES Final Res ult * (ABNORMAL) MICROALBUMIN/CREATININE RATIO, RANDOM UR (07/06/2020 11:54 AM CDT) MICROALBUMIN, URINE 38.3 No Reference Range mg/dL 07/06/2020 2:17 PM CDT [facility] CREATININE, URINE 75.3 29.0 - 226.0 mg/dL 07/06/2020 2:17 PM CDT [facility] Comment:Reference Range vari es with fluid intake and diet. MICROALBUMIN/ CREAT RATIO, UR 508.6(H) <25.0 mg/g 07/06/2020 2:17 PM CDT [facility] Urine URINE SPECIMEN OBTAINED BY CLEAN CATCH PROCEDURE / Unknown Collection / Unknown 07/06/2020 11:54 AM CDT 07/06/2020 12:19 PM CDT Narrative [facility] - 07/06/2020 2:17 PM CDT Condition Microalbumin/Creat ratio Normal Males <17 Normal Females <25 Microalbuminuria Males 17-299 Microalbuminuria Females 25-299 Overt proteinuria >=300 us Corey Lou MD URINE ORDERABLES Final Result [facility] CLIA# [id number] [facility] [place] [address] * DIABETES EYE EXAM (01/05/2020 12:00 AM CDT) Sgf Scanning HEALTH MAINTENANCE Final Result * MAMMO SCREEN BILAT W OR WO CAD (12/29/2011 2:40 PM CDT) Anatomical Region Laterality Modality Breast Bilateral Other Impressions 01/02/2012 10:57 AM CDT : Negative mammogram. Routine annual screening recommended. . Narrative 01/02/2012 10:57 AM CDT Bilateral Mammogram Reason for Exam: Screening Comparison: Comparison is made with the prior exam(s) dated 11/30/2010. Findings: Bilateral CC and MLO views were obtained. This examination was reviewed with the aid of a computer-aided detection system(CAD). The breast tissue is dense. No significant new findings since the prior mammogram(s). Asymmetric glandular tissue is noted on the right and is stable. Asymmetric glandular tissue is noted on the left and is stable. Bilateral mole marker(s) present. There are no signs of malignancy. Procedure Note Marika Vaughn MD - 06/24/2022 Bilateral Mammogram Reason for Exam: Screening Comparison: Comparison is made with the prior exam(s) dated 11/30/2010. Findings: Bilateral CC and MLO views were obtained. This examination was reviewed with the aid of a computer-aided detection system(CAD). The breast tissue is dense. No significant new findings since the prior mammogram(s). Asymmetric glandular tissue is noted on the right and is stable. Asymmetric glandular tissue is noted on the left and is stable. Bilateral mole marker(s) present. There are no signs of malignancy. IMPRESSION : Negative mammogram. Routine annual screening recommended. . Mau Terry MD MAMMO ORDERABLES Final Result from Last 3 Months or Most Recently Relevant to Health Maintenance Insurance [facility] MEDICARE HMO Advance Directives For more information, please contact: [phone] Documents on File Type Date Recorded Patient Hat Lining Blocker Expl anation Advance Directive POA 07/06/2020 11:34 AM Advance Directive POA
--- OUTSIDE RECORDS SUMMARY | 2024-10-17 02:20 | XMS_ITS | Encounter Summary ---
Author Organization [facility] Address [address] [place] [address] Care Team Providers Care Hand Woven Carpet And Rug Mender Name Role Phone Mau Terry MD Primary Care Provider [phone] Encounter Details Date Type Department Care Team (Latest Contact Info) Description 07/08/2002 Outpatient Historical [facility] [address] [facility] [address] [place] [address] Bryanna Bui MD NO ADDRESS ON FILE LUMP OR MASS IN BREAST (Primary Dx) Social History Tobacco Use Types Packs/Day Years Used Date Smoking Tobacco: Never Assessed Comments Unknown Sex and Gender Information Value Date Recorded Sex Assigned at Not on file Legal Sex Female 3:01 AM PIPE BENDING MACHINE OPERATOR Gender Identity Not on file Sexual Orientation Not on file documented as of this encounter Plan of Treatment Not on file documented as of this encounter Visit Diagnoses Diagnosis Lump or mass in breast- Primary documented in this encounter Care Teams Hand Woven Carpet And Rug Mender Relationship Specialty Start Date End Date Mau Terry MD [address] [place] [phone] PCP - General 02/28/06 07/12/14 documented as of this encounter
--- OUTSIDE RECORDS SUMMARY | 2024-10-17 02:20 | XMS_ITS | Encounter Summary ---
Author Organization [employer] [facility] Address [address] [place] [address] Care Team Providers Care Operating Theatre Technician Name Role Phone Unavailable Primary Care Provider Unavailabl e Encounter Details Date Type Department Care Team (Late st Contact Info) Description 07/30/2020 Ancillary Orders [facility] [address] [place] [address] Radha Suarez, RUBBER FLAP TUBER MACHINE OPERATOR [address] [place] [phone] Pain in left hand Social History Tobacco Use Types Packs/Day Years Used Date Smoking Tobacco: Never Smokeless Tobacco: Never Alcohol Use Standard Drinks/Week Comments Yes 0 (1 standard drink = 0.6 oz pur e alcohol) rare Comments No Sex and Gender Information Value Date Recorded Sex Assigned at Not on file Legal Sex Female 3:01 AM FOOD AND BEVERAGE ASSOCIATE Gender Identity Not on file Sexual Orientation Not on file Occupation Industry Job Start Date Job End Date Not on file Not on file Not on file Not on file COVID-19 Exposure Response Date Recorded In the last month, have you been in contact with someone who was confirmed or suspected to have Coronavirus / COVID-19? No / Unsure 08/02/2020 10:11 AM CDT documented as of this encounter Plan of Treatment Not on file documented as of this encounter Results * XR HAND 3+ VW LEFT (07/30/2020 3:19 PM CDT) Anatomical Region Laterality Modality Wrist / Hand Computed Radiogr aphy 07/30/2020 3:21 PM CDT Impressions 08/03/2020 4:28 PM CDT IMPRESSION: Please see below. Exam: XR HAND 3+ VW LEFT Date/Time of Exam: 07/30/2020 3:19 PM Reason For Exam: See Diagnosis. Diagnosis: Pain in left hand. Comparison: None. Findings: Three views of the hand demonstrate no acute fracture or dislocation. Joint space loss with prominent subchondral cystic change of the first CMC present. A paucity of productive change for the degree of joint space loss is present. Erosive osteoarthritis of the second DIP is present. Mild asymmetric joint space loss of the second and fourth PIP joints with minimal marginal osteophyte formation present. Asymmetric joint space loss of the third DIP present. No additional significant joint space loss or productive change is seen. No significant joint space loss or productive change is identified. Impression: 1. Negative for acute osseous abnormality. 2. Erosive osteoarthritis of the second DIP. 3. Radiographic findings suspicious for underlying inflammatory arthropathy of the first CMC.. Clinical correlation recommended. [id number] Narrative Procedure Note Luz Alarcon MD - 08/03/2020 IMPRESSION: Please see below. Exam: XR HAND 3+ VW LEFT Date/Time of Exam: 07/30/2020 3:19 PM Reason For Exam: See Diagnosis. Diagnosis: Pain in left hand. Comparison: None. Findings: Three views of the hand demonstrate no acute fracture or dislocation. Joint space loss with prominent subchondral cystic change of the first CMC present. A paucity of productive change for the degree of joint space loss is present. Erosive osteoarthritis of the second DIP is present. Mild asymmetric joint space loss of the second and fourth PIP joints with minimal marginal osteophyte formation present. Asymmetric joint space loss of the third DIP present. No additional significant joint space loss or productive change is seen. No significant joint space loss or productive change is identified. Impression: 1. Negative for acute osseous abnormality. 2. Erosive osteoarthritis of the second DIP. 3. Radiographic findings suspicious for underlying inflammatory arthropathy of the first CMC.. Clinical correlation recommended. [id number] Radha Suarez RUBBER FLAP TUBER MACHINE OPERATOR DIAGNOSTIC IMAGING ORDERABLES F inal Result documented in this encounter Visit Diagnoses Diagnosis Pain in left hand Pain in left hand documented in this encounter
--- OUTSIDE RECORDS SUMMARY | 2024-10-17 02:20 | XMS_ITS | Encounter Summary ---
Author Organization [facility] Address [address] [place] [address] Care Team Providers Care Service Transformer Repair Supervisor Name Role Phone Mau Terry MD Primary Care Provider [phone] Encounter Details Date Type Department Care Team (Latest Contact Info) Description 11/18/2002 Outpatient Historical [facility], Nose [facility] Th[facility] [address] [place] [address] Jc Barth MD NO ADDRESS ON FILE Dysfunct eustachian tube (Primary Dx); CONDUCT HEARING LOSS NOS; HYPERSOMNI W SLEEP APNEA Social History Tobacco Use Types Packs/Day Years Used Date Smoking Tobacco: Never Assessed Comments Unknown Sex and Gender Information Value Date Recorded Sex Assigned at Not on file Legal Sex Female 3:01 AM BARROW WORKER Gender Identity Not on file Sexual Orientation Not on file documented as of this encounter Plan of Treatment Not on file documented as of this encounter Visit Diagnoses Diagnosis Dysfunct eustachian tube- Primary Dysfunction of Eustachian tube Unspecified conductive hearing loss Hypersomnia with sleep apnea, unspecified documented in this encounter Care Teams Service Transformer Repair Supervisor Relationship Specialty Start Date End Date Mau Terry MD [address] [place] [phone] PCP - General 02/28/06 07/12/14 documented as of this encounter
--- OUTSIDE RECORDS SUMMARY | 2024-10-17 02:20 | XMS_ITS | Encounter Summary ---
Author Organization [facility] Address [address] [place] [address] Care Team Providers Care Program And Research Coordinator Name Role Phone Mau Terry MD Primary Care Provider [phone] Encounter Details Date Type Department Care Team (Latest Contact Info) Description 02/16/1998 Outpatient Historical [facility] Cardiology- [place] [address] [place] [address] Obed Mejia MD [address] [facility] [address] [place] [address] Palpitations (Primary Dx) Social History Tobacco Use Types Packs/Day Years Used Date Smoking Tobacco: Never Assessed Comments Unknown Sex and Gender Information Value Date Recorded Sex Assigned at Not on file Legal Sex Female 3:01 AM STACK YIELD ENGINEER Gender Identity Not on file Sexual Orientation Not on file documented as of this encounter Plan of Treatment Not on file documented as of this encounter Visit Diagnoses Diagnosis Palpitations- Primary documented in this encounter Care Teams Program And Research Coordinator Relationship Specialty Start Date End Date Mau Terry MD [address] [place] [phone] PCP - General 02/28/06 07/12/14 documented as of this encounter
--- OUTSIDE RECORDS SUMMARY | 2024-10-17 02:20 | XMS_ITS | Encounter Summary ---
Author Organization [facility] Address [address] [place] [address] Care Team Providers Care Service Team Leader Name Role Phone Mau Terry MD Primary Care Provider [phone] Encounter Details Date Type Department Care Team (Latest Contact Info) Description 02/15/2005 Outpatient Historical [facility] Th[facility] [address] [place] [address] [place] [address] Anselmo Lopez MD [address] [address] CONDUCT HEARING LOSS NOS (Primary Dx); HYPERTENSION NOS; SCREENING-LIPOID DISORDERS Social History Tobacco Use Types Packs/Day Years Used Date Smoking Tobacco: Never Assessed Comments Unknown Sex and Gender Information Value Date Recorded Sex Assigned at Not on file Legal Sex Female 3:01 AM PIPE RECOVERY SPECIALIST Gender Identity Not on file Sexual Orientation Not on file documented as of this encounter Plan of Treatment Not on file documented as of this encounter Visit Diagnoses Diagnosis Unspecified conductive hearing loss- Primary Unspecified essential hypertension Screening for lipoid disorders documented in this encounter Care Teams Service Team Leader Relationship Specialty Start Date End Date Mau Terry MD [address] [place] [phone] PCP - General 02/28/06 07/12/14 documented as of this encounter
--- OUTSIDE RECORDS SUMMARY | 2024-10-17 02:20 | XMS_ITS | Encounter Summary ---
Author Organization [facility] Address [address] [place] [address] Care Team Providers Care Auto Body Straightener Name Role Phone Mau Terry MD Primary Care Provider [phone] Encounter Details Date Type Department Care Team (Latest Contact Info) Description 08/27/2004 Outpatient Historical [facility] [address] [place] [address] [facility]WRST INJURY NOS (Primary Dx) Social History Tobacco Use Types Packs/Day Years Used Date Smoking Tobacco: Never Assessed Comments Unknown Sex and Gender Information Value Date Recorded Sex Assigned at Not on file Legal Sex Female 3:01 AM CYLINDER LOADER Gender Identity Not on file Sexual Orientation Not on file documented as of this encounter Plan of Treatment Not on file documented as of this encounter Visit Diagnoses Diagnosis Injury, other and unspecified, elbow, forearm, and wrist- Primary documented in this encounter Care Teams Auto Body Straightener Relationship Specialty Start Date End Date Mau Terry MD [address] [place] [phone] PCP - General 02/28/06 07/12/14 documented as of this encounter
--- OUTSIDE RECORDS SUMMARY | 2024-10-17 02:20 | XMS_ITS | Encounter Summary ---
Author Organization [facility] Address [address] [place] [address] Care Team Providers Care Sheet Metal Duct Installer Apprentice Name Role Phone Mau Terry MD Primary Care Provider [phone] Encounter Details Date Type Department Care Team (Latest Contact Info) Description 05/24/2005 Outpatient Historical [facility] Medicine [place] [address] [facility] [address] [place] [phone] Sven Kimball, [place] NO ADDRESS ON FILE SWELLING OF LIMB (Primary Dx); Plantar fibromatosis; HYPERTENSION NOS Social History Tobacco Use Types Packs/Day Years Used Date Smoking Tobacco: Never Assessed Comments Unknown Sex and Gender Information Value Date Recorded Sex Assigned at Not on file Legal Sex Female 3:01 AM GRADUATE STUDENT INSTRUCTOR Gender Identity Not on file Sexual Orientation Not on file documented as of this encounter Plan of Treatment Not on file documented as of this encounter Visit Diagnoses Diagnosis Swelling of limb- Primary Plantar fibromatosis Plantar fascial fibromatosis Unspecified essential hypertension documented in this encounter Care Teams Sheet Metal Duct Installer Apprentice Relationship Specialty Start Date End Date Mau Terry MD [address] [place] [phone] PCP - General 02/28/06 07/12/14 documented as of this encounter
--- OUTSIDE RECORDS SUMMARY | 2024-10-17 02:20 | XMS_ITS | Encounter Summary ---
Author Organization [facility] Address [address] [place] [address] Care Team Providers Care Equal Opportunity Representative Name Role Phone Mau Terry MD Primary Care Provider [phone] Encounter Details Date Type Department Care Team (Late st Contact Info) Description 05/30/2007 Outpatient [facility] [place] [facility] [address] [place], [place] [address] Mau Terry MD [address] [place] [phone] Social History Tobacco Use Types Packs/Day Years Used Date Smoking Tobacco: Never Assessed Comments Unknown Sex and Gender Information Value Date Recorded Sex Assigned at Not on file Legal Sex Female 3:01 AM RESTAURANT WORKER Gender Identity Not on file Sexual Orientation Not on file documented as of this encounter Plan of Treatment Not on file documented as of this encounter Procedures Procedure Name Priority Date/Time Associated Diagnosis Comments MAMMO SCRN TO DIAG BILAT Routine 06/19/2007 9:48 AM RESTAURANT WORKER documented in this encounter Results * MAMMO SCRN TO DIAG BILAT (06/19/2007 9:48 AM RESTAURANT WORKER) Anatomical Region Laterality Modality Breast Other Narrative 06/19/2007 9:48 AM RESTAURANT WORKER Report Available in [facility] Procedure Note 05/25/2008 Report Available in [facility] us Mau Terry MD MAMMO ORDERABLES Final Result documented in this encounter Visit Diagnoses Not on filedocumented in this encounter Care Teams Equal Opportunity Representative Relationship Specialty Start Date End Date Mau Terry MD [address] [place] [phone] PCP - General 02/28/06 07/12/14 documented as of this encounter
--- OUTSIDE RECORDS SUMMARY | 2024-10-17 02:20 | XMS_ITS | Encounter Summary ---
Author Organization [facility] Address [address] [place] [address] Care Team Providers Care Funeral Greeter Name Role Phone Mau Terry MD Primary Care Provider [phone] Encounter Details Date Type Department Care Team (Latest Contact Info) Description 01/03/2004 Outpatient Historical [facility]ulance [address] [place] [address] AMBULANCE, [facility] CONCUSSION W LOC UP TO 30 MIN (Primary Dx) Social History Tobacco Use Types Packs/Day Years Used Date Smoking Tobacco: Never Assessed Comments Unknown Sex and Gender Information Value Date Recorded Sex Assigned at Not on file Legal Sex Female 3:01 AM HOT CELL TECHNICIAN Gender Identity Not on file Sexual Orientation Not on file documented as of this encounter Plan of Treatment Not on file documented as of this encounter Visit Diagnoses Diagnosis Concussion with loss of consciousness of 30 minutes or less- Primary documented in this encounter Care Teams Funeral Greeter Relationship Specialty Start Date End Date Mau Terry MD [address] [place] [phone] PCP - General 02/28/06 07/12/14 documented as of this encounter
--- OUTSIDE RECORDS SUMMARY | 2024-10-17 02:20 | XMS_ITS | Encounter Summary ---
Author Organization [facility] Address [address] [place] [address] Care Team Providers Care Glass Beveler Name Role Phone Mau Terry MD Primary Care Provider [phone] Encounter Details Date Type Department Care Team (Latest Contact Info) Description 07/08/2002 Outpatient Historical [facility] Ear, Nose and Throat [address] [place] [address] [place] [phone] XeniaJc MD NO ADDRESS ON FILE DISORDERS OF MASTOID NEC (Primary Dx) Social History Tobacco Use Types Packs/Day Years Used Date Smoking Tobacco: Never Assessed Comments Unknown Sex and Gender Information Value Date Recorded Sex Assigned at Not on file Legal Sex Female 3:01 AM MARKET SURVEY REPRESENTATIVE Gender Identity Not on file Sexual Orientation Not on file documented as of this encounter Plan of Treatment Not on file documented as of this encounter Visit Diagnoses Diagnosis Other disorder of mastoid- Primary documented in this encounter Care Teams Glass Beveler Relationship Specialty Start Date End Date Mau Terry MD [address] [place] [phone] PCP - General 02/28/06 07/12/14 documented as of this encounter
--- OUTSIDE RECORDS SUMMARY | 2024-10-17 02:20 | XMS_ITS | Encounter Summary ---
Author Organization [employer] [facility] Address [address] [place] [address] Care Team Providers Care Pricing Clerk Name Role Phone Mau Terry MD Primary Care Provider [phone] Encounter Details Date Type Department Care Team (Latest Contact Info) Description 06/08/2004 Outpatient Historical [facility] [employer] [address] [place] [address] [place] [address] Sven Kimball PA NO ADDRESS ON FILE SEBORRHEIC KERATOSIS INFLAMED (Primary Dx) Social History Tobacco Use Types Packs/Day Years Used Date Smoking Tobacco: Never Assessed Comments Unknown Sex and Gender Information Value Date Recorded Sex Assigned at Not on file Legal Sex Female 3:01 AM CONCRETE STONE FINISHING SUPERVISOR Gender Identity Not on file Sexual Orientation Not on file documented as of this encounter Plan of Treatment Not on file documented as of this encounter Visit Diagnoses Diagnosis Inflamed seborrheic keratosis- Primary documented in this encounter Care Teams Pricing Clerk Relationship Specialty Start Date End Date Mau Terry MD [address] [place] [phone] PCP - General 02/28/06 07/12/14 documented as of this encounter
--- OUTSIDE RECORDS SUMMARY | 2024-10-17 02:20 | XMS_ITS | Encounter Summary ---
Author Organization [facility] Address [address] [place] [address] Care Team Providers Care Fruit Thinner Name Role Phone Mau Terry MD Primary Care Provider [phone] Encounter Details Date Type Department Care Team (Latest Contact Info) Description 05/04/2004 Outpatient Historical [facility] Medicine [place] [address] [facility] [address] [place] [address] Sven Kimball, [place] NO ADDRESS ON FILE HYPERTENSION NOS (Primary Dx); SKIN DISORDER NOS; HEAD INJURY UNSPECIFIED Social History Tobacco Use Types Packs/Day Years Used Date Smoking Tobacco: Never Assessed Comments Unknown Sex and Gender Information Value Date Recorded Sex Assigned at Not on file Legal Sex Female 3:01 AM CMA Gender Identity Not on file Sexual Orientation Not on file documented as of this encounter Plan of Treatment Not on file documented as of this encounter Visit Diagnoses Diagnosis Unspecified essential hypertension- Primary Unspecified disorder of skin and subcutaneous tissue Head injury, unspecified documented in this encounter Care Teams Fruit Thinner Relationship Specialty Start Date End Date Mau Terry MD [address] [place] [phone] PCP - General 02/28/06 07/12/14 documented as of this encounter
--- OUTSIDE RECORDS SUMMARY | 2024-10-17 02:20 | XMS_ITS | Encounter Summary ---
Author Organization [facility] Address [address] [place] [address] Care Team Providers Care Through Freight Engineer Name Role Phone Mau Terry MD Primary Care Provider Encounter Details Date Type Department Care Team (Latest Contact Info) Description 02/23/2006 Outpatient Historical [facility] Medicine[place] [address] [place] [address] Mau Terry MD [address] [place] [phone] Routine Medical Exam (Primary Dx); Dysphagia; Other Abnormal Blood Chemistry; Unspecified Essential Hypertension Social History Tobacco Use Types Packs/Day Years Used Date Smoking Tobacco: Never Assessed Comments Unknown Sex and Gender Information Value Date Recorded Sex Assigned at Not on file Legal Sex Female 3:01 AM DIANETIC COUNSELOR Gender Identity Not on file Sexual Orientation Not on file documented as of this encounter Plan of Treatment Not on file documented as of this encounter Visit Diagnoses Diagnosis Routine medical exam- Primary Routine general medical examination at a health care facility Dysphagia Other abnormal blood chemistry Unspecified essential hypertension documented in this encounter Care Teams Through Freight Engineer Relationship Specialty Start Date End Date Mau Terry MD [address] [place] [phone] PCP - General 02/28/06 07/12/14 documented as of this encounter
--- OUTSIDE RECORDS SUMMARY | 2024-10-17 02:20 | XMS_ITS | Encounter Summary ---
Author Organization [facility] Address [address] Attn: [place] [address] Care Team Providers Care Sales Representative Marine Supplies Name Role Phone Mau Terry MD Primary Care Provider [phone] Encounter Details Date Type Department Care Team (Late st Contact Info) Description 02/08/2005 Outpatient Historical B[facility] Louise DO NO ADDRESS ON FILE Social History Tobacco Use Types Packs/Day Years Used Date Smoking Tobacco: Never Assessed Comments Unknown Sex and Gender Information Value Date Recorded Sex Assigned at Not on file Legal Sex Female 3:01 AM EFFICIENCY MINER Gender Identity Not on file Sexual Orientation Not on file documented as of this encounter Plan of Treatment Not on file documented as of this encounter Procedures Procedure Name Priority Date/Time Associated Diagnosis Comments ACUTE HEPATITIS PANEL Routine 02/08/2005 10:30 AM CDT documented in this encounter Results * ACUTE HEPATITIS PANEL (02/08/2005 10:30 AM CDT) HEPATITIS B SURFACE AG Negative Negative INTERFACE SYSTEM HEPATITIS B CORE IGM Negative Negative INTERFACE SYSTEM HEPATITIS A IGM Negative Negative INTE RFACE SYSTEM HEPATITIS C AB Negative Negative INTER FACE SYSTEM Comment: Performed by E.I.A. methodology. If positive, CDC guidelines recommend confirmation with supplemental assay (e.g. RIBA.) The specimen will be retained for 7 days. Please contact the Immunology Laboratory if a confirmation by RIBA is desired. 02/08/2005 10:3 0 AM CDT us Bienvenido W Louise DO CHEMISTRY ORDERABLES Final Resu lt INTERFACE SYSTEM Refer to clinic/hospital department documented in this encounter Visit Diagnoses Not on filedocumented in this encounter Care Teams Sales Representative Marine Supplies Relationship Specialty Start Date End Date Mau Terry MD [facility] [address] [place] [phone] PCP - General 02/28/06 07/12/14 documented as of this encounter
--- OUTSIDE RECORDS SUMMARY | 2024-10-17 02:20 | XMS_ITS | Encounter Summary ---
Author Organization [employer] [facility] Address [address] [place] [address] Care Team Providers Care Stave Saw Operator Name Role Phone Mau Terry MD Primary Care Provider [phone] Encounter Details Date Type Department Care Team (Latest Contact Info) Description 04/08/2004 Outpatient [facility] Breast Center [facility] [address] [place] [address] Bienvenido Louise, NO ADDRESS ON FILE SCREENING MAMM-MAILG NEOPL-OTHER (Primary Dx) Social History Tobacco Use Types Packs/Day Years Used Date Smoking Tobacco: Never Assessed Comments Unknown Sex and Gender Information Value Date Recorded Sex Assigned at Not on file Legal Sex Female 3:01 AM FIRST SAMPLER Gender Identity Not on file Sexual Orientation Not on file documented as of this encounter Plan of Treatment Not on file documented as of this encounter Visit Diagnoses Diagnosis Other screening mammogram- Primary documented in this encounter Care Teams Stave Saw Operator Relationship Specialty Start Date End Date Mau Terry MD [facility] [address] [place] [phone] PCP - General 02/28/06 07/12/14 documented as of this encounter
--- OUTSIDE RECORDS SUMMARY | 2024-10-17 02:20 | XMS_ITS | Encounter Summary ---
Author Organization [facility] Address [address] [place] [address] Care Team Providers Care Bag Sewer Name Role Phone Mau Terry MD Primary Care Provider [phone] Encounter Details Date Type Department Care Team (Latest Contact Info) Description 11/23/2004 Outpatient Historical [facility] Medicine [place] [address] [facility] [address] [place] [phone] Sven Kimball PA NO ADDRESS ON FILE HYPERTENSION NOS (Primary Dx); WALLPAPER CONSULTANT DISORDER NOS Social History Tobacco Use Types Packs/Day Years Used Date Smoking Tobacco: Never Assessed Comments Unknown Sex and Gender Information Value Date Recorded Sex Assigned at Not on file Legal Sex Female 3:01 AM HUMANITIES DEPARTMENT CHAIR Gender Identity Not on file Sexual Orientation Not on file documented as of this encounter Plan of Treatment Not on file documented as of this encounter Visit Diagnoses Diagnosis Unspecified essential hypertension- Primary Unspecified disorders of nervous system documented in this encounter Care Teams Bag Sewer Relationship Specialty Start Date End Date Mau Terry MD [address] [place] [phone] PCP - General 02/28/06 07/12/14 documented as of this encounter
--- OUTSIDE RECORDS SUMMARY | 2024-10-17 02:20 | XMS_ITS | Encounter Summary ---
Author Organization [facility] Address [address] [place] [address] Care Team Providers Care Horticulture Superintendent Name Role Phone Mau Terry MD Primary Care Provider [phone] Encounter Details Date Type Department Care Team (Late st Contact Info) Description 06/20/2002 Outpatient Historical [facility] FY06 Jonh Fox Jr., MD [address] [place] [address] Social History Tobacco Use Types Packs/Day Years Used Date Smoking Tobacco: Never Assessed Comments Unknown Sex and Gender Information Value Date Recorded Sex Assigned at Not on file Legal Sex Female 3:01 AM CUT ORDER HAND Gender Identity Not on file Sexual Orientation Not on file documented as of this encounter Plan of Treatment Not on file documented as of this encounter Visit Diagnoses Not on filedocumented in this encounter Care Teams Horticulture Superintendent Relationship Specialty Start Date End Date Mau Terry MD [address] [place] [phone] PCP - General 02/28/06 07/12/14 documented as of this encounter
--- OUTSIDE RECORDS SUMMARY | 2024-10-17 02:20 | XMS_ITS | Encounter Summary ---
Author Organization [facility] Address [address] [place] [address] Care Team Providers Care Manager Of Case Management Name Role Phone Mau Terry MD Primary Care Provider [phone] Encounter Details Date Type Department Care Team (Latest Contact Info) Description 06/19/2002 Outpatient Historical [facility] Ruddy Calloway, Jonh Howell MD [address] [place] [address] URIN TRACT INFECTION NOS (Primary Dx); LUMP OR MASS IN BREAST; SLEEP DISTURBANCES NEC; ABNORM ELECTROCARDIOGRAM Social History Tobacco Use Types Packs/Day Years Used Date Smoking Tobacco: Never Assessed Comments Unknown Sex and Gender Information Value Date Recorded Sex Assigned at Not on file Legal Sex Female 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
--- OUTSIDE RECORDS SUMMARY | 2024-10-17 02:20 | XMS_ITS | Encounter Summary ---
Author Organization [facility] Address [address] [place] [address] Care Team Providers Care Glass Pulverizer Equipment Operator Name Role Phone Mau Terry MD Primary Care Provider [phone] Encounter Details Date Type Department Care Team (Latest Contact Info) Description 09/21/2004 Outpatient Historical [facility] Medicine [place] [address] [facility] [address] [place] [address] Sven Kimball PA NO ADDRESS ON FILE HEADACHE (Primary Dx) Social History Tobacco Use Types Packs/Day Years Used Date Smoking Tobacco: Never Assessed Comments Unknown Sex and Gender Information Value Date Recorded Sex Assigned at Not on file 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
--- OUTSIDE RECORDS SUMMARY | 2024-10-17 02:20 | XMS_ITS | Encounter Summary ---
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
--- OUTSIDE RECORDS SUMMARY | 2024-10-17 02:20 | XMS_ITS | Encounter Summary ---
Author Organization [facility] Address [address] [place] [address] Care Team Providers Care Tester Equipment Name Role Phone Mau Terry MD Primary Care Provider [phone] Encounter Details Date Type Department Care Team (Latest Contact Info) Description 01/13/2004 Outpatient Historical [facility] Medicine [place] [address] [facility] [address] [place] [phone] Sven Kimball, [place] NO ADDRESS ON FILE HEAD INJURY UNSPECIFIED (Primary Dx); HEADACHE; NAUSEA ALONE; OTHER MALAISE AND FATIGUE Social History Tobacco Use Types Packs/Day Years Used Date Smoking Tobacco: Never Assessed Comments Unknown Sex and Gender Information Value Date Recorded Sex Assigned at Not on file 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
--- OUTSIDE RECORDS SUMMARY | 2024-10-17 02:20 | XMS_ITS | Encounter Summary ---
Author Organization [facility] Address [address] [place] [address] Care Team Providers Care Air And Water Tester Name Role Phone Mau Terry MD Primary Care Provider [phone] Reason for Referral * Outpatient Services (Routine) - Closed Specialty Diagnoses / Procedures Referred By Contac t Referred To Contact Diagnoses Other screening mammogram Procedures MAMMO DIGITAL SCREEN BILAT Mau Terry MD [address] [place] [phone] Phone: tel: fax: [facility] Pre-Registration [place] CALL TO MAKE APPOINTMENT ONLY [address] [place] [address] Phone: tel: fax: Referral ID Status Reason Start Date Expiration Date V isits Requested Visits Authorized [id number] Closed F [facility] TO SCHEDULE (SGF) 11/03/2011 11/02/2012 1 1 Encounter Details Date Type Department Care Team (Latest Contact Info) Description 11/03/2011 Ancillary Orders [facility] Pre-Registration [place] CALL TO MAKE APPOINTMENT ONLY [address] [place] [address] Mau Terry MD [address] [place] [address] Other screening mammogram Social History Tobacco Use Types Packs/Day Years Used Date Smoking Tobacco: Never Smokeless Tobacco: Never Alcohol Use Standard Drinks/Week Comments No 0 (1 standard drink = 0.6 oz pur e alcohol) Comments No Sex and Gender Information Value Date Recorded Sex Assigned at Not on file 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 Routine annual screening recommended. . Narrative 01/02/2012 11:01 AM CDT Bilateral Mammogram Reason for Exam: [...] malignancy. Procedure Note Marika Vaughn MD - 01/02/2012 Bilateral Mammogram Reason for Exam: Screening Comparison: Comparison is made with the prior exam(s) dated 11/30/2010. Findings: Bilateral CC and MLO views were obtained. This examination was reviewed with the aid of a computer-aided detectionsystem(CAD). The breast tissue is dense. No significant new findings since the prior mammogram(s). Asymmetric glandular tissue is noted on the right and is stable. Asymmetric glandular tissue is noted on the left and is stable. Bilateral mole marker(s) present. There are no signs of malignancy. IMPRESSION: Negative mammogram. Routine annual screening recommended. . Mau Terry MD MAMMO ORDERABLES Final Result documented in this encounter Visit Diagnoses Diagnosis Other screening mammogram Other screening mammogram documented in this encounter Care Teams Air And Water Tester Relationship Specialty Start Date End Date Mau Terry MD [address] [place] [address] [place] [phone] PCP - General 02/28/06 07/12/14 documented as of this encounter
--- OUTSIDE RECORDS SUMMARY | 2024-10-17 02:20 | XMS_ITS | Encounter Summary ---
Author Organization [facility] Address [address] [place] [address] Care Team Providers Care Pin Maker Name Role Phone Mau Terry MD Primary Care Provider [phone] Reason for Referral * Outpatient Services (Routine) - Closed Specialty Diagnoses / Procedures Referred By Contac t Referred To Contact Diagnoses Lump or mass in breast Procedures MAMMO DIGITAL DIAG BILAT Mau Terry MD [address] [place] [phone] Phone: tel: fax: Referral ID Status Reason Start Date Expiration Date Visits Re quested Visits Authorized [id number] Closed 11/30/2010 11/30/2011 1 1 Encounter Details Date Type Department Care Team (Late st Contact Info) Description 11/30/2010 Ancillary Orders [facility] [address] [phone] Mau Terry MD [address] [place] [phone] Lump or mass in breast Social History Tobacco Use Types Packs/Day Years Used Date Smoking Tobacco: Never Smokeless Tobacco: Never Alcohol Use Standard Drinks/Week Comments No 0 (1 standard drink = 0.6 oz pur e alcohol) Comments No Sex and Gender Information Value Date Recorded Sex Assigned at Not on file 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 The mammogram is stable. The ultrasound is unremarkable and on exam today, the palpable lump is in fact a tubular thickening along the inframammary crease which I feel represents the patient's ridge . It is slightly more prominent than on the left but does not feel suspicious and, therefore, continued observation is recommended. If this is felt to be worrisome, a surgical consultation would be recommended. KG/cristofer Narrative 12/04/2010 3:26 PM CDT BILATERAL DIAGNOSTIC MAMMOGRAM: Bilateral CC, MLO, and ML views were obtained with a spot compression view in the ML projection. Comparison is made with the study of 02/19/09, which is the most recent previous exam. The patient is presenting today because of a self-discovered palpable lump on the right. The patient also had a recent clinical exam which describes a palpable lump from the 5:30 to 7 o'clock location on the right. A BB was placed in the area of the palpable finding prior to mammographic imaging. On the left, there is heterogeneously dense breast tissue but the distribution of the tissue and calcifications are stable with the study of 2008. On the right, the distribution of the tissue appears to be stable as well. The tissue is heterogeneously dense. Scattered areas of nodularity are identified but no discrete or worrisome mass was noted. Further evaluation sonographically was carried out. This digital mammogram was also analyzed by the Computer Aided Detection System (CAD), [employer], Version 8.3. RIGHT BREAST ULTRASOUND: Sonographic evaluation was carried out from the 5 to 7 o'clock location and there were no suspicious findings. There was some mild ductal fluid noted and in the subareolar region a patch of what appears to be fibrocystic tissue. I did examine the patient and she points to the ridge of the breast. It does feel slightly more prominent than the ridge on the left. However, a suspicious mass is not identified. This palpable finding is tubular coursing along the inframammary fold. On inspection of the right breast, there were no obvious rashes identified and the patient did not report any pruritus. The patient had been given some Atarax at the time of her clinical breast exam (11/11/10). The patient received a result/recommendation letter. Procedure Note Coni Herndon MD - 12/04/2010 BILATERAL DIAGNOSTIC MAMMOGRAM: Bilateral CC, MLO, and ML views wereobtained with a spot compression view in the ML projection. Comparison ismade with the study of 02/19/09, which is the most recent previous exam.The patient is presenting today because of a self-discovered palpable lumpon the right. The patient also had a recent clinical exam which describesa palpable lump from the 5:30 to 7 o'clock location on the right. A BBwas placed in the area of the palpable finding prior to mammographicimaging. On the left, there is heterogeneously dense breast tissue but thedistribution of the tissue and calcifications are stable with the study og1972. On the right, the distribution of the tissue appears to be stable as well.The tissue is heterogeneously dense. Scattered areas of nodularity areidentified but no discrete or worrisome mass was noted. Furtherevaluation sonographically was carried out. This digital mammogram was also analyzed by the Computer Aided DetectionSystem (CAD), [employer], Version 8.3. RIGHT BREAST ULTRASOUND: Sonographic evaluation was carried out from the5 to 7 o'clock location and there were no suspicious findings. There wassome mild ductal fluid noted and in the subareolar region a patch of whatappears to be fibrocystic tissue. I did examine the patient and she points to the ridge of the breast. Itdoes feel slightly more prominent than the ridge on the left. However, asuspicious mass is not identified. This palpable finding is tubularcoursing along the inframammary fold. On inspection of the right breast,there were no obvious rashes identified and the patient did not report anypruritus. The patient had been given some Atarax at the time of herclinical breast exam (11/11/10). The patient received a result/recommendation letter. IMPRESSION: Bilateral diagnostic mammogram and directed right breastultrasound were performed today to evaluate a self-discovered palpablelump located inferiorly at the inframammary crease on the right. Themammogram is stable. The ultrasound is unremarkable and on exam today,the palpable lump is in fact a tubular thickening along the inframammarycrease which I feel represents the patient's ridge . It is slightly moreprominent than on the left but does not feel suspicious and, therefore,continued observation is recommended. If this is felt to be worrisome, asurgical consultation would be recommended. KG/cristofer us Mau Terry MD MAMMO ORDERABLES Final Result documented in this encounter Visit Diagnoses Diagnosis Lump or mass in breast Lump or mass in breast documented in this encounter Care Teams Pin Maker Relationship Specialty Start Date End Date Mau Terry MD [address] [place] [phone] PCP - General 02/28/06 07/12/14 documented as of this encounter
--- OUTSIDE RECORDS SUMMARY | 2024-10-17 02:20 | XMS_ITS | Encounter Summary ---
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 Sex Female 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 KEY PERSON Gender Identity Not on file Sexual Orientation Not on file documented as of this encounter Plan of Treatment Not on file documented as of this encounter Visit Diagnoses Diagnosis Closed fracture of base of skull with subarachnoid, subdural, and extradural hemorrhage, brief (less than one hour) loss of consciousness (CMS/HCC)- Primary Closed fracture of base of skull with subarachnoid, subdural, and extradural hemorrhage, brief (less than one hour) loss of consciousness documented in this encounter Care Teams Documentation Nurse Relationship Specialty Start Date End Date Mau Terry MD [address] [place] [phone] PCP - General 02/28/06 07/12/14 documented as of this encounter
--- OUTSIDE RECORDS SUMMARY | 2024-10-17 02:20 | XMS_ITS | Encounter Summary ---
Author Organization [facility] Address [address] [place] [address] Care Team Providers Care Meter And Service Line Inspector Name Role Phone Mau Terry MD Primary Care Provider [phone] Encounter Details Date Type Department Care Team (Latest Contact Info) Description 10/03/[address] 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
--- OUTSIDE RECORDS SUMMARY | 2024-10-17 02:20 | XMS_ITS | Encounter Summary ---
Author Organization [facility] Address [address] [place] [address] Care Team Providers Care Rock Wool Insulator Name Role Phone Mau Terry MD Primary Care Provider [phone] Encounter Details Date Type Department Care Team (Latest Contact Info) Description 01/28/2004 Outpatient [facility] [address] [place] [address] [facility] [address] [place] [address] Jose Tatum MD [address] [place] [address] [place] [address] AFT CARE HEAL TRAUM FRAC OTHER BONE (Primary Dx) Social History Tobacco Use Types Packs/Day Years Used Date Smoking Tobacco: Never Assessed Comments Unknown Sex and Gender Information Value Date Recorded Sex Assigned at Not on file 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
--- OUTSIDE RECORDS SUMMARY | 2024-10-17 02:20 | XMS_ITS | Encounter Summary ---
Author Organization 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
--- OUTSIDE RECORDS SUMMARY | 2024-10-17 02:20 | XMS_ITS | Encounter Summary ---
Author Organization [facility] Address [address] [place] [address] Care Team Providers Care Neon Sign Servicer Name Role Phone Mau Terry MD Primary Care Provider [phone] Encounter Details Date Type Department Care Team (Latest Contact Info) Description 08/27/2002 Outpatient Historical [facility] [address] [place] [address] [place] [address] Chelita Luna, ASSOCIATE MERCHANDISER [address] [place] [address] HYPERSOMNI W SLEEP APNEA (Primary Dx) Social History Tobacco Use Types Packs/Day Years Used Date Smoking Tobacco: Never Assessed Comments Unknown Sex and Gender Information Value Date Recorded Sex Assigned at Not on file 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
--- OUTSIDE RECORDS SUMMARY | 2024-10-17 02:20 | XMS_ITS | Encounter Summary ---
Author Organization [facility] Address [address] [place] [address] Care Team Providers Care Truck Manager Name Role Phone Mau Terry MD Primary Care Provider [phone] Encounter Details Date Type Department Care Team (Latest Contact Info) Description 04/08/2004 Outpatient Historical [facility] [address] [facility] [address] [place] [address] Jamey Fraga MD NO ADDRESS ON FILE SCREENING MAMM-MAILG NEOPL-OTHER (Primary Dx) Social History Tobacco Use Types Packs/Day Years Used Date Smoking Tobacco: Never Assessed Comments Unknown Sex and Gender Information Value Date Recorded Sex Assigned at Not on file 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
--- OUTSIDE RECORDS SUMMARY | 2024-10-17 02:20 | XMS_ITS | Encounter Summary ---
Author Organization [facility] Address [address] [place] [address] Care Team Providers Care Wood Setter Name Role Phone Mau Terry MD Primary Care Provider [phone] Encounter Details Date Type Department Care Team (Latest Contact Info) Description 01/28/2004 Outpatient Historical [facility] [address] [place] [address] Jose Tatum MD [address] [address] CLOSE SKULL BASE FRACTURE (CMS/HCC) (Primary Dx) Social History Tobacco Use Types Packs/Day Years Used Date Smoking Tobacco: Never Assessed Comments Unknown Sex and Gender Information Value Date Recorded Sex Assigned at Not on file Legal Sex Female 3:01 AM ACID OPERATOR Gender Identity Not on file Sexual Orientation Not on file documented as of this encounter Plan of Treatment Not on file documented as of this encounter Visit Diagnoses Diagnosis Closed fracture of base of skull without mention of intracranial injury, unspecified state of consciousness (CMS/HCC)- Primary Closed fracture of base of skull without mention of intracranial injury, unspecified state of consciousness documented in this encounter Care Teams Wood Setter Relationship Specialty Start Date End Date Mau Terry MD [address] [place] [phone] PCP - General 02/28/06 07/12/14 documented as of this encounter
--- OUTSIDE RECORDS SUMMARY | 2024-10-17 02:20 | XMS_ITS | Encounter Summary ---
Author Organization [facility] Address [address] [place] [address] Care Team Providers Care Stud Beef Cattle Farmer Name Role Phone Mau Terry MD Primary Care Provider [phone] Encounter Details Date Type Department Care Team (Latest Contact Info) Description 12/14/2004 Outpatient Historical [facility] [place] [address] [facility] [address] [place] [phone] Sven Kimball PA NO ADDRESS ON FILE MALAISE AND FATIGUE NEC (Primary Dx); HYPERTENSION NOS Social History Tobacco Use Types Packs/Day Years Used Date Smoking Tobacco: Never Assessed Comments Unknown Sex and Gender Information Value Date Recorded Sex Assigned at Not on file Legal Sex Female 3:01 AM FORESTRY AID Gender Identity Not on file Sexual Orientation Not on file documented as of this encounter Plan of Treatment Not on file documented as of this encounter Visit Diagnoses Diagnosis Other malaise and fatigue- Primary Unspecified essential hypertension documented in this encounter Care Teams Stud Beef Cattle Farmer Relationship Specialty Start Date End Date Mau Terry MD [address] [place] [phone] PCP - General 02/28/06 07/12/14 documented as of this encounter
--- OUTSIDE RECORDS SUMMARY | 2024-10-17 02:20 | XMS_ITS | Encounter Summary ---
Author Organization [facility] Address [address] [place] [address] Care Team Providers Care Director Selection And Administration Name Role Phone Mau Terry MD Primary Care Provider [phone] Encounter Details Date Type Department Care Team (Late st Contact Info) Description 06/19/2007 Outpatient Historical [facility] [address] [facility] [address] [place] [address] Social History Tobacco Use Types Packs/Day Years Used Date Smoking Tobacco: Never Assessed Comments Unknown Sex and Gender Information Value Date Recorded Sex Assigned at Not on file Legal Sex Female 3:01 AM CLAIMS ADJUSTER Gender Identity Not on file Sexual Orientation Not on file documented as of this encounter Plan of Treatment Not on file documented as of this encounter Visit Diagnoses Not on filedocumented in this encounter Care Teams Director Selection And Administration Relationship Specialty Start Date End Date Mau Terry MD [facility] [address] [place] [phone] PCP - General 02/28/06 07/12/14 documented as of this encounter
--- OUTSIDE RECORDS SUMMARY | 2024-10-17 02:20 | XMS_ITS | Encounter Summary ---
Author Organization [facility] Address [address] [place] [address] Care Team Providers Care Field Trainer Name Role Phone Mau Terry MD Primary Care Provider [phone] Encounter Details Date Type Department Care Team (Latest Contact Info) Description 08/12/2002 Outpatient Historical [facility] [place] [address] [place] [address] Richard Cantor MD NO ADDRESS ON FILE PALPITATIONS (Primary Dx); PRECORDIAL PAIN Social History Tobacco Use Types Packs/Day Years Used Date Smoking Tobacco: Never Assessed Comments Unknown Sex and Gender Information Value Date Recorded Sex Assigned at Not on file Legal Sex Female 3:01 AM DRAFTER CIVIL (CAD) Gender Identity Not on file Sexual Orientation Not on file documented as of this encounter Plan of Treatment Not on file documented as of this encounter Visit Diagnoses Diagnosis Palpitations- Primary Precordial pain documented in this encounter Care Teams Field Trainer Relationship Specialty Start Date End Date Mau Terry MD [facility] [address] [place] [phone] PCP - General 02/28/06 07/12/14 documented as of this encounter
--- OUTSIDE RECORDS SUMMARY | 2024-10-17 02:20 | XMS_ITS | Encounter Summary ---
Author Organization [facility] Address [address] [place] [address] Care Team Providers Care Pull Out Operator Name Role Phone Mau Terry MD Primary Care Provider [phone] Encounter Details Date Type Department Care Team (Latest Contact Info) Description 03/15/2004 Outpatient Historical [facility] [address] [place] [id number] Sven Kimball, [place] NO ADDRESS ON FILE DIZZINESS AND GIDDINESS (Primary Dx); OTALGIA NOS; HYPOTENSION NOS Social History Tobacco Use Types Packs/Day Years Used Date Smoking Tobacco: Never Assessed Comments Unknown Sex and Gender Information Value Date Recorded Sex Assigned at Not on file Legal Sex Female 3:01 AM WELDING SPECIALIST Gender Identity Not on file Sexual Orientation Not on file documented as of this encounter Plan of Treatment Not on file documented as of this encounter Visit Diagnoses Diagnosis Dizziness and giddiness- Primary Otalgia, unspecified Hypotension, unspecified documented in this encounter Care Teams Pull Out Operator Relationship Specialty Start Date End Date Mau Terry MD [address] [place] [phone] PCP - General 02/28/06 07/12/14 documented as of this encounter
--- OUTSIDE RECORDS SUMMARY | 2024-10-17 02:20 | XMS_ITS | Encounter Summary ---
Author Organization [facility] Address [address] [place] [address] Care Team Providers Care Optomechanical Engineer Name Role Phone Mau Terry MD Primary Care Provider [phone] Encounter Details Date Type Department Care Team (Latest Contact Info) Description 03/30/2004 Outpatient Historical [facility] Ear, Nose and Throat [address] [place] [address] [place] [address] [place] [address] Anselmo Lopez MD [address] [address] CONDUCT HEARING LOSS NOS (Primary Dx); PERIPHERAL VERTIGO NOS; IMPACTED CERUMEN; BENIGN PARXYSMAL VERTIGO Social History Tobacco Use Types Packs/Day Years Used Date Smoking Tobacco: Never Assessed Comments Unknown Sex and Gender Information Value Date Recorded Sex Assigned at Not on file Legal Sex Female 3:01 AM APPLICATION DEVELOPER MANAGER Gender Identity Not on file Sexual Orientation Not on file documented as of this encounter Plan of Treatment Not on file documented as of this encounter Visit Diagnoses Diagnosis Unspecified conductive hearing loss- Primary Peripheral vertigo, unspecified Impacted cerumen Benign paroxysmal positional vertigo documented in this encounter Care Teams Optomechanical Engineer Relationship Specialty Start Date End Date Mau Terry MD [address] [place] [phone] PCP - General 02/28/06 07/12/14 documented as of this encounter
--- OUTSIDE RECORDS SUMMARY | 2024-10-17 02:20 | XMS_ITS | Encounter Summary ---
Author Organization [facility] Address [address] [place] [address] Care Team Providers Care Ground Nuclear Weapons Assembly Officer Name Role Phone Mau Terry MD Primary Care Provider [phone] Encounter Details Date Type Department Care Team (Latest Contact Info) Description 07/31/2002 Outpatient Historical [facility] Jonh Fox Jr., MD [address] [place] [address] FEMALE STRESS INCONTINENCE (Primary Dx); ALLERGIC RHINITIS NOS; HEARING LOSS NOS; SLEEP DISTURBANCES NEC Social History Tobacco Use Types Packs/Day Years Used Date Smoking Tobacco: Never Assessed Comments Unknown Sex and Gender Information Value Date Recorded Sex Assigned at Not on file Legal Sex Female 3:01 AM QUALITY ENGINEER Gender Identity Not on file Sexual Orientation Not on file documented as of this encounter Plan of Treatment Not on file documented as of this encounter Visit Diagnoses Diagnosis Female stress incontinence- Primary Allergic rhinitis, cause unspecified Unspecified hearing loss Other sleep disturbances documented in this encounter Care Teams Ground Nuclear Weapons Assembly Officer Relationship Specialty Start Date End Date Mau Terry MD [address] [place] [phone] PCP - General 02/28/06 07/12/14 documented as of this encounter
--- OUTSIDE RECORDS SUMMARY | 2024-10-17 02:20 | XMS_ITS | Encounter Summary ---
Author Organization [facility] Address [address] [place] [address] Care Team Providers Care Pilot Instructor Name Role Phone Mau Terry MD Primary Care Provider [phone] Encounter Details Date Type Department Care Team (Latest Contact Info) Description 11/30/2004 Outpatient Historical [facility] Medicine [place] [address] [facility] [address] [place] [phone] Sven Kimball PA NO ADDRESS ON FILE OTHER MALAISE AND FATIGUE (Primary Dx); HYPERTENSION NOS Social History Tobacco Use Types Packs/Day Years Used Date Smoking Tobacco: Never Assessed Comments Unknown Sex and Gender Information Value Date Recorded Sex Assigned at Not on file Legal Sex Female 3:01 AM POT FIREMAN Gender Identity Not on file Sexual Orientation Not on file documented as of this encounter Plan of Treatment Not on file documented as of this encounter Visit Diagnoses Diagnosis Other malaise and fatigue- Primary Unspecified essential hypertension documented in this encounter Care Teams Pilot Instructor Relationship Specialty Start Date End Date Mau Terry MD [address] [place] [phone] PCP - General 02/28/06 07/12/14 documented as of this encounter
--- OUTSIDE RECORDS SUMMARY | 2024-10-17 02:20 | XMS_ITS | Encounter Summary ---
Author Organization [facility] Address [address] [place] [address] Care Team Providers Care Shadowgraph Scale Operator Name Role Phone Mau Terry MD Primary Care Provider Encounter Details Date Type Department Care Team (Latest Contact Info) Description 08/22/2002 Outpatient Historical [facility] Ear, Nose and Throat [address] [place] [address] [place] [address] [place] [address] Jc Barth MD NO ADDRESS ON FILE CONDUCT HEARING LOSS NOS (Primary Dx); ALLERGIC RHINITIS NOS Social History Tobacco Use Types Packs/Day Years Used Date Smoking Tobacco: Never Assessed Comments Unknown Sex and Gender Information Value Date Recorded Sex Assigned at Not on file Legal Sex Female 3:01 AM COMMERCIAL DRIVER'S LICENSE DRIVER Gender Identity Not on file Sexual Orientation Not on file documented as of this encounter Plan of Treatment Not on file documented as of this encounter Visit Diagnoses Diagnosis Unspecified conductive hearing loss- Primary Allergic rhinitis, cause unspecified documented in this encounter Care Teams Shadowgraph Scale Operator Relationship Specialty Start Date End Date Mau Terry MD [address] [place] [phone] PCP - General 02/28/06 07/12/14 documented as of this encounter
--- OUTSIDE RECORDS SUMMARY | 2024-10-17 02:20 | XMS_ITS | Encounter Summary ---
Author Organization [facility] Address [address] [place] [address] Care Team Providers Care Dress Designer Name Role Phone Mau Terry MD Primary Care Provider [phone] Encounter Details Date Type Department Care Team (Latest Contact Info) Description 04/08/2004 Outpatient Historical [facility] Internal Medicine- [place] [address] [facility] [address] [place] [address] Russell Madrid MD [address] [place] [phone] HYPERTENSION NOS (Primary Dx); OTHER MALAISE AND FATIGUE Social History Tobacco Use Types Packs/Day Years Used Date Smoking Tobacco: Never Assessed Comments Unknown Sex and Gender Information Value Date Recorded Sex Assigned at Not on file Legal Sex Female 3:01 AM CLASSIFICATIONS OFFICER CC/CM Gender Identity Not on file Sexual Orientation Not on file documented as of this encounter Plan of Treatment Not on file documented as of this encounter Visit Diagnoses Diagnosis Unspecified essential hypertension- Primary Other malaise and fatigue documented in this encounter Care Teams Dress Designer Relationship Specialty Start Date End Date Mau Terry MD [facility] [address] [place] [phone] PCP - General 02/28/06 07/12/14 documented as of this encounter
--- OUTSIDE RECORDS SUMMARY | 2024-10-17 02:20 | XMS_ITS | Encounter Summary ---
Author Organization [facility] Address [address] [place] [address] Care Team Providers Care Wallpaper Remover Steam Name Role Phone Mau Terry MD Primary Care Provider [phone] Encounter Details Date Type Department Care Team (Latest Contact Info) Description 03/30/2004 Outpatient Historical [facility] Ear, Nose and Throat [address] [place] [address] [place] [place] [address] Anselmo Lopez MD [address] [address] PERIPHERAL VERTIGO NOS (Primary Dx); BENIGN PARXYSMAL VERTIGO; CONDUCT HEARING LOSS NOS; IMPACTED CERUMEN Social History Tobacco Use Types Packs/Day Years Used Date Smoking Tobacco: Never Assessed Comments Unknown Sex and Gender Information Value Date Recorded Sex Assigned at Not on file Legal Sex Female 3:01 AM RAIL TRANSPORTATION TABELER Gender Identity Not on file Sexual Orientation Not on file documented as of this encounter Plan of Treatment Not on file documented as of this encounter Visit Diagnoses Diagnosis Peripheral vertigo, unspecified- Primary Benign paroxysmal positional vertigo Unspecified conductive hearing loss Impacted cerumen documented in this encounter Care Teams Wallpaper Remover Steam Relationship Specialty Start Date End Date Mau Terry MD [address] [place] [phone] PCP - General 02/28/06 07/12/14 documented as of this encounter
--- OUTSIDE RECORDS SUMMARY | 2024-10-17 02:20 | XMS_ITS | Encounter Summary ---
Author Organization [facility] Address [address] [place] [address] Care Team Providers Care Automatic Blocker Name Role Phone Mau Terry MD Primary Care Provider [phone] Encounter Details Date Type Department Care Team (Latest Contact Info) Description 10/29/2002 Outpatient Historical [facility] [address] [place] [address] [place] [address] Chelita Luna, TAPE STRINGER [address] [place] [address] INSOMNIA NEC (Primary Dx) Social History Tobacco Use Types Packs/Day Years Used Date Smoking Tobacco: Never Assessed Comments Unknown Sex and Gender Information Value Date Recorded Sex Assigned at Not on file Legal Sex Female 3:01 AM WAFER POLISHING WORKER Gender Identity Not on file Sexual Orientation Not on file documented as of this encounter Plan of Treatment Not on file documented as of this encounter Visit Diagnoses Diagnosis Insomnia, unspecified- Primary documented in this encounter Care Teams Automatic Blocker Relationship Specialty Start Date End Date Mau Terry MD [address] [place] [phone] PCP - General 02/28/06 07/12/14 documented as of this encounter
--- OUTSIDE RECORDS SUMMARY | 2024-10-17 02:20 | XMS_ITS | Encounter Summary ---
Author Organization [facility] Address [address] [place] [address] Care Team Providers Care Public Information Coordinator Name Role Phone Mau Terry MD Primary Care Provider Encounter Details Date Type Department Care Team (Latest Contact Info) Description 05/27/2003 Outpatient Historical [facility] Medicine [place] [address] [facility] [address] [place] [phone] [place] Louise, NO ADDRESS ON FILE ALLERGIC RHINITIS NOS (Primary Dx); HYPERTENSION NOS; JOINT PAIN-L/LEG Social History Tobacco Use Types Packs/Day Years Used Date Smoking Tobacco: Never Assessed Comments Unknown Sex and Gender Information Value Date Recorded Sex Assigned at Not on file Legal Sex Female 3:01 AM PIPING DESIGN SPECIALIST Gender Identity Not on file Sexual Orientation Not on file documented as of this encounter Plan of Treatment Not on file documented as of this encounter Visit Diagnoses Diagnosis Allergic rhinitis, cause unspecified- Primary Unspecified essential hypertension Pain in joint, lower leg documented in this encounter Care Teams Public Information Coordinator Relationship Specialty Start Date End Date Mau Terry MD [address] [place] [phone] PCP - General 02/28/06 07/12/14 documented as of this encounter
--- OUTSIDE RECORDS SUMMARY | 2024-10-17 02:20 | XMS_ITS | Encounter Summary ---
Author Organization [facility] Address [address] [place] [address] Care Team Providers Care Bull Bucker Name Role Phone Mau Terry MD Primary Care Provider [phone] Encounter Details Date Type Department Care Team (Latest Contact Info) Description 03/03/2004 Outpatient [facility] [address] [place] [address] [facility] [address] [place] [address] Jose Tatum MD [address] [place] [address] AFT CARE HEAL TRAUM FRAC OTHER BONE (Primary Dx) Social History Tobacco Use Types Packs/Day Years Used Date Smoking Tobacco: Never Assessed Comments Unknown Sex and Gender Information Value Date Recorded Sex Assigned at Not on file Legal Sex Female 3:01 AM JAVA USER INTERFACE DEVELOPER Gender Identity Not on file Sexual Orientation Not on file documented as of this encounter Plan of Treatment Not on file documented as of this encounter Visit Diagnoses Diagnosis Aftercare for healing traumatic fracture of other bone- Primary documented in this encounter Care Teams Bull Bucker Relationship Specialty Start Date End Date Mau Terry MD [address] [place] [phone] PCP - General 02/28/06 07/12/14 documented as of this encounter
--- OUTSIDE RECORDS SUMMARY | 2024-10-17 02:20 | XMS_ITS | Encounter Summary ---
Author Organization [facility] Address [address] [place] [address] Care Team Providers Care Sfdc Architect Name Role Phone Mau Terry MD Primary Care Provider [phone] Encounter Details Date Type Department Care Team (Latest Contact Info) Description 06/08/2004 Outpatient Historical [facility] Medicine [place] [address] [facility] [address] [place] [phone] Sven Kimball, [place] NO ADDRESS ON FILE BONE/SKIN NEOPLASM NOS (Primary Dx); HEAD INJURY UNSPECIFIED Social History Tobacco Use Types Packs/Day Years Used Date Smoking Tobacco: Never Assessed Comments Unknown Sex and Gender Information Value Date Recorded Sex Assigned at Not on file Legal Sex Female 3:01 AM PLATE STACKER HAND Gender Identity Not on file Sexual Orientation Not on file documented as of this encounter Plan of Treatment Not on file documented as of this encounter Visit Diagnoses Diagnosis Neoplasm of unspecified nature of bone, soft tissue, and skin- Primary Head injury, unspecified documented in this encounter Care Teams Sfdc Architect Relationship Specialty Start Date End Date Mau Terry MD [address] [place] [phone] PCP - General 02/28/06 07/12/14 documented as of this encounter
--- OUTSIDE RECORDS SUMMARY | 2024-10-17 02:20 | XMS_ITS | Encounter Summary ---
Author Organization [facility] Address [address] [place] [address] Care Team Providers Care Rhythmic Gymnastics Coach Name Role Phone Mau Terry MD Primary Care Provider [phone] Encounter Details Date Type Department Care Team (Latest Contact Info) Description 02/19/2004 Outpatient Historical [facility] Internal Medicine- [place] [address] [facility] [address] [place] [address] Russell Madrid MD [address] [place] [phone] HYPERTENSION NOS (Primary Dx) Social History Tobacco Use Types Packs/Day Years Used Date Smoking Tobacco: Never Assessed Comments Unknown Sex and Gender Information Value Date Recorded Sex Assigned at Not on file Legal Sex Female 3:01 AM RADIOGRAPHER ANGIOGRAM Gender Identity Not on file Sexual Orientation Not on file documented as of this encounter Plan of Treatment Not on file documented as of this encounter Visit Diagnoses Diagnosis Unspecified essential hypertension- Primary documented in this encounter Care Teams Rhythmic Gymnastics Coach Relationship Specialty Start Date End Date Mau Terry MD [address] [place] [phone] PCP - General 02/28/06 07/12/14 documented as of this encounter
--- OUTSIDE RECORDS SUMMARY | 2024-10-17 02:20 | XMS_ITS | Encounter Summary ---
Author Organization [facility] Address [address] [place] [address] Care Team Providers Care Felt Hat Mellowing Machine Operator Name Role Phone Mau Terry MD Primary Care Provider Encounter Details Date Type Department Care Team (Late st Contact Info) Description 05/14/2002 Outpatient Historical [facility] Ear, Nose and Throat [address] [place] [address] [place] [address] Social History Tobacco Use Types Packs/Day Years Used Date Smoking Tobacco: Never Assessed Comments Unknown Sex and Gender Information Value Date Recorded Sex Assigned at Not on file Legal Sex Female 3:01 AM INSURANCE LOSS ADJUSTER Gender Identity Not on file Sexual Orientation Not on file documented as of this encounter Plan of Treatment Not on file documented as of this encounter Visit Diagnoses Not on filedocumented in this encounter Care Teams Felt Hat Mellowing Machine Operator Relationship Specialty Start Date End Date Mau Terry MD [address] [place] [phone] PCP - General 02/28/06 07/12/14 documented as of this encounter
--- OUTSIDE RECORDS SUMMARY | 2024-10-17 02:20 | XMS_ITS | Clinical Summary ---
Author Organization [facility] Address [address] [place] [address] Care Team Providers Care [employer] Special [employer] Teacher Name Role Phone Unavailable Primary Care Provider Unavailabl e Allergies Active Allergy Reactions Criticality Noted Date Comments Sitagliptin Unknown 07/06/2020 Medications multivitamin (DAILY-NARINDER) Oral tablet Take 1 Tab by mouth daily. Active lancets (ACCU-CHEK MULTICLIX LANCET) Misc Misc by Mis.(Non-Drug; Combo Route) route. Check blood sugar BID 100 Each prn 1 Active CHOLECALCIFEROL, VITAMIN D3, (D-3-5 ORAL) Take 2,000 Units by mouth 2 times daily. Active blood sugar diagnostic (ONE TOUCH ULTRA TEST) Misc StrpIndications: Type II or unspecified type diabetes mellitus without mention of complication, not stated as uncontrolled 300 Each 3 3 Active clotrimazole-bet amethasone (LOTRISONE) 1-0.05 % Cream Apply to affected area 2 times daily. 45 Gram 1 4 Active irbesartan-hydro chlorothiazide (AVALIDE) 150-12.5 mg tablet Take 1 Tab by mouth daily. 90 Tab 3 4 Active metFORMIN (GLUCOPHAGE XR) 500 mg Extended Release 24 hour tablet Take 2 Tabs by mouth 2 times daily with meals. This time only. Needs to be seen before next refill 120 Tab 3 4 Active insulin lispro (HUMALOG KWIKPEN INSULIN SUBCUT) Inject by subcutaneous injection. 15 units with lunch 20 units with supper 10 units with snack SQ TID AC plus correction Max 75 units a day Active insulin degludec (TRESIBA FLEXTOUCH U-100 SUBCUT) Inject by subcutaneous injection. 80 units every morning Active flash glucose sensor (FreeStyle Lucila 14 Day Sensor) Kit Check blood sugars 4 times a day 2 Kit 2 1 Active flash glucose scanning reader (FreeStyle Lucila 14 Day [place]) Misc Check blood sugars 4 times a day 1 Each 1 1 Active semaglutide (Ozempic) 1 mg/dose (2 mg/1.5 mL) Pen Injector Inject 1 mg by subcutaneous injection every 7 days. 6 mL 1 1 Active Biotin 1 mg Tablet 1,000 mcg. 9 Active nitrofurantoin (Macrobid) 100 mg capsule Take 1 Capsule (100 mg) by mouth 2 times daily. 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 Lysis of adhesion. Resection of [...] for the left adnexa. 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 Type II or unspecified type diabetes mellitus without mention of complication, not stated as uncontrolled 12/30/2007 Overview (03/25/2010): A1c goal < 7. Resolved Problems Problem Noted Date Diagnosed Date Resolved Date Detrusor instability of bladder 03/17/2013 04/03/2013 S/P left knee arthroscopy w/ med. 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 Gender Identity Not on file Sexual Orientation Not on file Occupation Industry Job Start Date Job End Date Not on file Not on file Not on file Not on file Last Filed Vital Signs Vital Sign Reading Time Taken Comments Blood Pressure 124/80 07/06/2020 10:58 AM CDT Pulse 78 07/06/2020 10:58 AM CDT Temperature 36.7 C (98.1 F) 07/18/2013 2:28 PM CDT Respiratory Rate 16 11/07/2012 10:24 AM CDT Oxygen Saturation 97% 07/18/2013 2:28 PM CDT Inhaled Oxygen Concentration - - Weight 84.4 kg (186 lb) 08/18/2020 3:34 PM CDT Height 160 cm (5' 3 ) 08/18/2020 3:34 PM CDT Body Mass Index 32.95 08/18/2020 3:34 PM CDT Plan of Treatment Health Maintenance Due Date Last Done Comments FIT-DNA Q 3 years 2002 FIT/FOBT Q 1 year 2002 Flex Sig/CT Colonography Q 5 years 2002 PNEUMOCOCCAL VACCINE 50+ YEA RS (2 of 2 - PCV) 03/28/2007 03/28/2006 ZOSTER VACCINE (1 of 2) 2007 BREAST CANCER SCREENING 12/28/2012 12/29/19 12, 11/30/2010, 02/19/2009, Additional history exists DIABETES ANNUAL FOOT EXAM 04/12/20132011, 11/10/2011, 03/25/2010, Additional history exists COLORECTAL SCREENING 05/09/2017 05/09/2012, 04/18/20 12 Colorectal Cancer Screening 05/09/2017 RSV VACCINE (60+ or ) (1 - Risk 60-74 years 1-dose series) 2017 DIABETES ANNUAL RETINAL EXAM 01/04/2021, 04/21/2013, 03/08/2012, Additional history exists DIABETES HBA1C Q 6 MONTHS 01/06/20212020, 09/03/2018, 01/01/2013, Additional history exists DIABETES MICROALBUMIN ANNUAL SCREEN 07/06/2021 07/06/2020, 03/23/2020, 03/01/2020, Additional history exists LDL CHOLESTEROL ANNUAL 07/06/2021 , 09/03/2018, 01/01/2013, Additional history exists DTAP/TDAP/TD VACCINES (2 - T d or Tdap) 04/29/2022 04/29/2012 OSTEOPOROSIS SCREENING 2022 INFLUENZA VACCINE (#1) 2023 7, 01/06/2016, 02/06/2014, Additional history exists Procedures Procedure Name Priority Date/Time Associated Diagnosis Comments MICROALBUMIN/CREATIN INE RATIO, RANDOM UR Routine 07/06/2020 11:54 AM CDT Uncontrolled type 2 diabetes mellitus with hyperglycemia, with long-term current use of insulin ([facility]) LIPID PANEL Routine 07/06/2020 11:48 AM CDT Uncontrolled type 2 diabetes mellitus with hyperglycemia, with long-term current use of insulin ([facility]) HEMOGLOBIN A1C Routine 07/06/2020 11:48 AM CDT Uncontrolled type 2 diabetes mellitus with hyperglycemia, with long-term current use of insulin ([facility]) DIABETES EYE EXAM Routine 01/05/2020 MAMMO SCREEN BILAT W OR WO CAD Routine 12/29/2011 2:40 PM CDT Other screening mammogram from Last 3 Months or Most Recently Relevant to Health Maintenance Results * (ABNORMAL) MICROALBUMIN/CREATININE RATIO, RANDOM UR (07/06/2020 11:54 AM CDT) MICROALBUMIN, URINE 38.3 No Reference Range mg/dL 07/06/2020 2:17 PM CDT [facility] CREATININE, URINE 75.3 29.0 - 226.0 mg/dL 07/06/2020 2:17 PM CDT [facility] Comment:Reference Range vari es with fluid intake and diet. MICROALBUMIN/ CREAT RATIO, UR 508.6(H) <25.0 mg/g 07/06/2020 2:17 PM T [facility] Urine URINE SPECIMEN OBTAINED BY CLEAN CATCH PROCEDURE / Unknown Collection / Unknown 07/06/2020 11:54 AM CDT 07/06/2020 12:19 PM CDT Narrative [facility] - 07/06/2020 2:17 PM CDT Condition Microalbumin/Creat ratio Normal Males <17 Normal Females <25 Microalbuminuria Males 17-299 Microalbuminuria Females 25-299 Overt proteinuria >=300 us Corey Lou MD URINE ORDERABLES Final Result Performing Organization Address [facility] de Phone Number [facility] CLIA# [id number] [address] [place] [address] * (ABNORMAL) HEMOGLOBIN A1C (07/06/2020 11:48 AM CDT) HEMOGLOBIN A1C 8.1(H) See Comment % 07/06/2020 1:38 PM CDT [facility] EST. AVG GLUCOSE, A1C 186 mg/dL 07/06/2020 1:38 PM CDT [facility] Blood Venipuncture / Unknown 07/06/2020 11:48 AM CDT 07/06/2020 12:01 PM CDT [facility] - 07/06/2020 1:38 PM CDT HGB A1C INTERPRETATION NORMAL: <5.7% PRE-DIABETES: 5.7 - 6.4% DIABETES: 6.5% OR GREATER Falsely low A1C measurements can occur when: 1. Anemia and/or hemolytic anemia is present. 2. Hemoglobin variants present. 3. Renal failure. 4. Transfusion of blood product in the last 120 days. We recommend ordering a fructosamine test([id number]) to more accurately assess glycemic status if any of the above conditions are present. us Corey Lou MD CHEMISTRY ORDERABLES Final Res ult Performing Organization Address [facility] Co de Phone Number [facility] CLIA# [id number] [address] [place] [address] * (ABNORMAL) LIPID PANEL (07/06/2020 11:48 AM CDT) CHOLESTEROL 201(H) <200 mg/dL 07/06/2020 1:04 PM CDT [facility] TRIGLYCERIDE 334(H) <150 mg/dL 07/06/2020 1:04 PM CDT [facility] HDL 41 40 - 59 mg/dL 07/06/2020 1:04 PM CDT [facility] LDL CALCULATED 93 <100 mg/dL 07/06/2020 1:04 PM CDT [facility] NON-HDL CHOLESTEROL 160(H) <130 mg/dL 07/06/2020 1:04 PM CDT [facility] Blood Venipuncture / Unknown 07/06/2020 11:48 AM CDT 07/06/2020 12:02 PM CDT Narrative [facility] - 07/06/2020 1:04 PM CDT TOTAL CHOLESTEROL mg/dL Desirable <200 Borderline high 200-239 High >=240 TRIGLYCERIDES mg/dL Normal <150 Borderline high 150-199 High 200-499 Very high >=500 HDL CHOLESTEROL mg/dL Low <40 Normal 40-59 Desirable >=60 NON HDL CHOLESTEROL mg/dL Optimal <130 Near Optimal 130-159 Borderline High 160-189 Very High >=190 CALCULATED LDL mg/dL LDL <70, OPTIMAL if have Atherosclerotic cardiovascular disease (ASCVD) or intermediate or higher (>7.5%) 10 year risk of ASCVD including most adults with diabetes. LDL <100, Optimal in adult patients with low (<7.5%) 10 year ASCVD risk LDL 100-160, Suboptimal LDL >160, High LDL >190, Very high ATPIII Guidelines Reference Ranges for Lipid Panels (NCEP/AMA) . Corey Lou MD CHEMISTRY ORDERABLES Final Res ult [facility] CLIA# [id number] [address] [place] [address] * DIABETES EYE EXAM (01/05/2020) us Abstract Spg Provider HEALTH MAINTENANCE Final R esult * MAMMO DIGITAL SCREEN BILAT (12/29/2011 2:40 [...] Negative mammogram. Routine annual screening recommended. . 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 Expl anation Advance Directive POA 07/06/2020 11:34 AM Advance Directive POA Advance Directive Living Will 11/30/2010 Advance Directive Living Will Advance Directive POA 11/30/2010 1:12 PM A dvance Directive POA * Full Code (Latest Code Status on File) Date Activated Date Inactivated Comments 11/07/2012 8:05 AM 11/08/2012 2:01 AM * Full Code Date Activated Date Inactivated Comments 11/07/2012 7:21 AM 11/07/2012 8:05 AM * Full Code Date Activated Date Inactivated Comments 05/09/2012 4:59 PM 05/13/2012 6:10 PM * Full Code Date Activated Date Inactivated Comments 05/09/2012 11:36 AM 05/09/2012 4:59 PM * Full Code Date Activated Date Inactivated Comments 05/09/2012 9:41 AM 05/09/2012 11:36 AM
--- OUTSIDE RECORDS SUMMARY | 2024-10-17 02:20 | XMS_ITS | Encounter Summary ---
Author Organization [facility] Address [address] [place] [address] Care Team Providers Care Truant Officer Name Role Phone Mau Terry MD Primary Care Provider [phone] Encounter Details Date Type Department Care Team (Late st Contact Info) Description 08/27/2002 Outpatient Historical [facility] [address] [place] [address] Jonh Fox Jr., MD [address] [place] [phone] RESPIRATORY ABNORM NEC (Primary Dx) Social History Tobacco Use Types Packs/Day Years Used Date Smoking Tobacco: Never Assessed Comments Unknown Sex and Gender Information Value Date Recorded Sex Assigned at Not on file 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
--- OUTSIDE RECORDS SUMMARY | 2024-10-17 02:20 | XMS_ITS | Encounter Summary ---
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
--- OUTSIDE RECORDS SUMMARY | 2024-10-17 02:20 | XMS_ITS | Encounter Summary ---
Author Organization [facility] Address [address] [place] [address] Care Team Providers Care Pot Holder Binder Name Role Phone Mau Terry MD Primary Care Provider [phone] Encounter Details Date Type Department Care Team (Late st Contact Info) Description 01/19/2009 [facility]illary [facility] [address] [place] [address] Mau Terry MD [address] [place] [phone] Other Screening Mammogram Social History Tobacco Use Types Packs/Day Years Used Date Smoking Tobacco: Never Alcohol Use Standard Drinks/Week Comments No 0 (1 standard drink = 0.6 oz pur e alcohol) Comments No Sex and Gender Information Value Date Recorded Sex Assigned at Not on file 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
--- OUTSIDE RECORDS SUMMARY | 2024-10-17 02:20 | XMS_ITS | Encounter Summary ---
Author Organization [facility] Address [address] [place] [address] Care Team Providers Care Regulator Operator Name Role Phone Mau Terry MD Primary Care Provider [phone] Encounter Details Date Type Department Care Team (Latest Contact Info) Description 02/08/2005 Outpatient Historical [facility] [place] [address] [facility] [address] [place] [phone] Sven Kimball, [place] NO ADDRESS ON FILE ELEV TRANSAMINASE/LDH (Primary Dx); Plantar fibromatosis; PURE HYPERGLYCERIDEMIA; Pain in limb Social History Tobacco Use Types Packs/Day Years Used Date Smoking Tobacco: Never Assessed Comments Unknown Sex and Gender Information Value Date Recorded Sex Assigned at Not on file 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 Gender Identity Not on file Sexual Orientation Not on file documented as of this encounter Plan of Treatment Not on file documented as of this encounter Visit Diagnoses Diagnosis Nonspecific elevation of levels of transaminase or lactic acid dehydrogenase (LDH)- Primary Plantar fibromatosis Plantar fascial fibromatosis Pure hyperglyceridemia Pain in limb Pain in soft tissues of limb documented in this encounter Care Teams Regulator Operator Relationship Specialty Start Date End Date Mau Terry MD [address] [place] [phone] PCP - General 02/28/06 07/12/14 documented as of this encounter
--- OUTSIDE RECORDS SUMMARY | 2024-10-17 02:20 | XMS_ITS | Encounter Summary ---
Author Organization [facility] Address [address] [place] [address] Care Team Providers Care Specialist Physician Name Role Phone Mau Terry MD Primary Care Provider [phone] Encounter Details Date Type Department Care Team (Latest Contact Info) Description 02/16/2004 Outpatient Historical [facility]- [place] [address] [place] [phone] Sven Kimball [place] NO ADDRESS ON FILE CLOSE SKULL FX NEC/MENING HEM (CMS/HCC) (Primary Dx); DIZZINESS AND GIDDINESS; HYPERTENSION NOS Social History Tobacco Use Types Packs/Day Years Used Date Smoking Tobacco: Never Assessed Comments Unknown Sex and Gender Information Value Date Recorded Sex Assigned at Not on file 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
--- OUTSIDE RECORDS SUMMARY | 2024-10-17 02:20 | XMS_ITS | Encounter Summary ---
Author Organization [facility] Address [address] [place] [address] Care Team Providers Care Nuisance Animal Damage Control Agent Name Role Phone Mau Terry MD Primary Care Provider [phone] Encounter Details Date Type Department Care Team (Late st Contact Info) Description 02/19/2009 Ancillary Orders [facility] [address] [place] [phone] Mau Terry MD [address] [place] [phone] Other Screening Mammogram Social History Tobacco Use Types Packs/Day Years Used Date Smoking Tobacco: Never Alcohol Use Standard Drinks/Week Comments No 0 (1 standard drink = 0.6 oz pur e alcohol) Comments No Sex and Gender Information Value Date Recorded Sex Assigned at Not on file 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 This examination was reviewed with the aid of a computer-aided detection system(CAD). The breast tissue is dense. Scattered benign type nodularity. A few scattered benign type calcifications bilaterally. No significant new findings since the prior mammogram(s). Procedure Note Arias Hess MD - 02/23/2009 Bilateral Mammogram Reason for Exam: Screening Comparison: Comparison is made with the prior exam(s) dated 2003+2007 Findings: Bilateral CC and MLO views were obtained. This examination was reviewed with the aid of a computer-aided detectionsystem(CAD). The breast tissue is dense. Scattered benign type nodularity. A few scattered benign typecalcifications bilaterally. No significant new findings since the prior mammogram(s). us Mau Terry MD MAMMO ORDERABLES Final Result documented in this encounter Visit Diagnoses Diagnosis Other screening mammogram Other screening mammogram documented in this encounter Care Teams Nuisance Animal Damage Control Agent Relationship Specialty Start Date End Date Mau Terry MD [address] [place] [phone] PCP - General 02/28/06 07/12/14 documented as of this encounter
--- OUTSIDE RECORDS SUMMARY | 2024-10-17 02:21 | XMS_ITS | Encounter Summary ---
Author Organization [facility] Address [address] [place] [address] Care Team Providers Care Waste Reduction Coordinator Name Role Phone Mau Terry MD Primary Care Provider [phone] Encounter Details Date Type Department Care Team (Latest Contact Info) Description 05/10/2006 Outpatient Historical [facility] Endoscopy [place] [address] [place] [address] [place] [address] Frederick Choudhury MD [address] [place] [phone] Dysphagia (Primary Dx) Social History Tobacco Use Types Packs/Day Years Used Date Smoking Tobacco: Never Assessed Comments Unknown Sex and Gender Information Value Date Recorded Sex Assigned at Not on file 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
--- OUTSIDE RECORDS SUMMARY | 2024-10-17 02:21 | XMS_ITS | Encounter Summary ---
Author Organization [facility] Address [address] [place] [address] Care Team Providers Care Trash Collector Supervisor Name Role Phone Mau Terry MD Primary Care Provider [phone] Encounter Details Date Type Department Care Team (Late st Contact Info) Description 02/24/1998 Outpatient Historical [facility] Cardiology- [place] [address] [place] [address] Obed Mejia MD [address] [facility] [address] [place] [address] Painful respiration (Primary Dx); Palpitations Social History Tobacco Use Types Packs/Day Years Used Date Smoking Tobacco: Never Assessed Comments Unknown Sex and Gender Information Value Date Recorded Sex Assigned at Not on file 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
--- OUTSIDE RECORDS SUMMARY | 2024-10-17 02:21 | XMS_ITS | Encounter Summary ---
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 (Primary Dx) Social History Tobacco Use Types Packs/Day Years Used Date Smoking Tobacco: Never Assessed Comments Unknown Sex and Gender Information Value Date Recorded Sex Assigned at Not on file 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
--- OUTSIDE RECORDS SUMMARY | 2024-10-17 02:21 | XMS_ITS | Encounter Summary ---
Author Organization [facility] Address [address] [place] [address] Care Team Providers Care Oil Dispenser Name Role Phone Mau Terry MD Primary Care Provider [phone] Encounter Details Date Type Department Care Team (Latest Contact Info) Description 09/06/2000 Outpatient [facility] Facial Plastic Surgery[address] [place] [address] Tano Meneses MD NO ADDRESS ON FILE Follow-up examination, following unspecified surgery (Primary Dx) Social History Tobacco Use Types Packs/Day Years Used Date Smoking Tobacco: Never Assessed Comments Unknown Sex and Gender Information Value Date Recorded Sex Assigned at Not on file Legal Sex Female 3:01 AM PATIENT RELATIONS MANAGER Gender Identity Not on file Sexual Orientation Not on file documented as of this encounter Plan of Treatment Not on file documented as of this encounter Visit Diagnoses Diagnosis Follow-up examination, following unspecified surgery- Primary documented in this encounter Care Teams Oil Dispenser Relationship Specialty Start Date End Date Mau Terry MD [address] [place] [phone] PCP - General 02/28/06 07/12/14 documented as of this encounter
--- OUTSIDE RECORDS SUMMARY | 2024-10-17 02:21 | XMS_ITS | Encounter Summary ---
Author Organization [facility] Address [address] [place] [address] Care Team Providers Care Asset Availability Leader Name Role Phone Mau Terry MD Primary Care Provider [phone] Encounter Details Date Type Department Care Team (Latest Contact Info) Description 07/18/2000 Outpatient Historical [facility] Ruddy Calloway, Jonh Howell MD [address] [place] [address] Chalazion (Primary Dx); Hypoactive sexual desire Social History Tobacco Use Types Packs/Day Years Used Date Smoking Tobacco: Never Assessed Comments Unknown Sex and Gender Information Value Date Recorded Sex Assigned at Not on file 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
--- OUTSIDE RECORDS SUMMARY | 2024-10-17 02:21 | XMS_ITS | Encounter Summary ---
Author Organization [facility] Address [address] [place] [address] Care Team Providers Care Behavioral Sciences Department Chair Name Role Phone Mau Terry MD Primary Care Provider [phone] Encounter Details Date Type Department Care Team (Late st Contact Info) Description 10/05/2000 Outpatient Historical [facility] [address] 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
--- OUTSIDE RECORDS SUMMARY | 2024-10-17 02:21 | XMS_ITS | Encounter Summary ---
Author Organization [facility] Address [address] Attn: [place] [address] Care Team Providers Care Body Bumper Name Role Phone Mau Terry MD Primary Care Provider [phone] Encounter Details Date Type Department Care Team (Late st Contact Info) Description 01/10/2000 Outpatient Historical Ruddy Calloway, Jonh Howell MD [address] [place] [address] Social History Tobacco Use Types Packs/Day Years Used Date Smoking Tobacco: Never Assessed Comments Unknown Sex and Gender Information Value Date Recorded Sex Assigned at Not on file 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
--- OUTSIDE RECORDS SUMMARY | 2024-10-17 02:21 | XMS_ITS | Encounter Summary ---
Author Organization [employer] [facility] Address [address] [place] [address] Care Team Providers Care Conductor Sleeping Car Name Role Phone Mau Terry MD Primary Care Provider [phone] Encounter Details Date Type Department Care Team (Latest Contact Info) Description 06/24/2001 Outpatient Historical [facility] Brent Valladares MD [address] [place] [address] ACUTE URI NOS (Primary Dx) Social History Tobacco Use Types Packs/Day Years Used Date Smoking Tobacco: Never Assessed Comments Unknown Sex and Gender Information Value Date Recorded Sex Assigned at Not on file 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
--- OUTSIDE RECORDS SUMMARY | 2024-10-17 02:21 | XMS_ITS | Encounter Summary ---
Author Organization [facility] Address [address] [place] [address] Care Team Providers Care Patient Case Coordinator Name Role Phone Mau Terry MD Primary Care Provider Encounter Details Date Type Department Care Team (Latest Contact Info) Description 02/29/[address] 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
--- OUTSIDE RECORDS SUMMARY | 2024-10-17 02:21 | XMS_ITS | Encounter Summary ---
Author Organization [facility] Address [address] [place] [address] Care Team Providers Care Mac Developer Name Role Phone Mau Terry MD Primary Care Provider [phone] Encounter Details Date Type Department Care Team (Latest Contact Info) Description 03/01/2001 Outpatient Historical [facility] [address] [facility] [address] [place] [address] Bryanna Bui MD NO ADDRESS ON FILE SCREENING MAMM-MAILG NEOPL-OTHER (Primary Dx) Social History Tobacco Use Types Packs/Day Years Used Date Smoking Tobacco: Never Assessed Comments Unknown Sex and Gender Information Value Date Recorded Sex Assigned at Not on file 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
--- OUTSIDE RECORDS SUMMARY | 2024-10-17 02:21 | XMS_ITS | Encounter Summary ---
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); Unspecified sleep apnea Social History Tobacco Use Types Packs/Day Years Used Date Smoking Tobacco: Never Assessed Comments Unknown Sex and Gender Information Value Date Recorded Sex Assigned at Not on file 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
--- OUTSIDE RECORDS SUMMARY | 2024-10-17 02:21 | XMS_ITS | Encounter Summary ---
Author Organization [facility] Address [address] [place] [address] Care Team Providers Care Security Representative Name Role Phone Mau Terry MD Primary Care Provider [phone] Reason for Referral * Outpatient Services (Routine) - Closed Specialty Diagnoses / Procedures Referred By Jaqueline t Referred To Contact Diagnoses Post mastoidectomy sequelae Excessive granulation tissue Procedures CT TEMPORAL BONE WO CONTRAST Twan Garcia PA [facility] [address] [place] [address] Phone: tel: fax: Referral ID Status Reason Start Date Expiration Date Visits Re quested Visits Authorized [id number] Closed 01/23/2012 01/22/2013 1 1 Encounter Details Date Type Department Care Team (Late st Contact Info) Description 01/23/2012 Ancillary Orders [facility] [place] [address] [place] [phone] Twan Garcia PA [facility] [address] [place] [address] Post mastoidectomy sequelae; Excessive granulation tissue Social History Tobacco Use Types Packs/Day Years Used Date Smoking Tobacco: Never Smokeless Tobacco: Never Alcohol Use Standard Drinks/Week Comments No 0 (1 standard drink = 0.6 oz pur e alcohol) Comments No Sex and Gender Information Value Date Recorded Sex Assigned at Not on file 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 Exam: CT TEMPORAL BONE WO CONTRAST Date/Time of Exam: Jan 19, 2012 02:00:00 PM Reason For Exam: Postmastoidectomy complication, unspecified. Technique: CT of the temporal bones was performed without the administration of intravenous contrast. Encephalomalacia appears to be present in the anterior right frontal lobe. The noncontrast images of the posterior fossa are unremarkable. The paranasal sinuses are clear. Right mastoidectomy changes are noted. Left mastoid air cells are well aerated. The internal auditory canals appear normal. Bony labyrinths and vestibular aqueducts are unremarkable. The left temporal bone appears normal. The right temporal bone shows the semicircular canals and bony tegmen to be intact. Soft tissue density is seen filling the oval window and encircling an apparently dehiscent facial nerve canal. Minimal soft tissue extends into the posterior recesses. No normal-appearing ossicles are identified. Small fragment of malleus or incus is seen anteriorly and inferiorly. Impression: 1. Some soft tissue is present in the right middle ear canal without gross active bony destruction. Soft tissue fills the oval window. Small fragment of ossicle is noted. Probable facial nerve dehiscence is noted. 2. The study is otherwise unremarkable in appearance. Narrative Procedure Note Jonh Rosado MD - 01/24/2012 IMPRESSION IMPRESSION: See report below. Exam: CT TEMPORAL BONE WO CONTRAST Date/Time of Exam: Jan 19, 2012 02:00:00 PM Reason For Exam: Postmastoidectomy complication, unspecified. Technique: CT of the temporal bones was performed without the administration of intravenous contrast. Encephalomalacia appears to be present in the anterior right frontal lobe. The noncontrast images of the posterior fossa are unremarkable. The paranasal sinuses are clear. Right mastoidectomy changes are noted. Left mastoid air cells are well aerated. The internal auditory canals appear normal. Bony labyrinths and vestibular aqueducts are unremarkable. The left temporal bone appears normal. The right temporal bone shows the semicircular canals and bony tegmen to be intact. Soft tissue density is seen filling the oval window and encircling an apparently dehiscent facial nerve canal. Minimal soft tissue extends into the posterior recesses. No normal-appearing ossicles are identified. Small fragment of malleus or incus is seen anteriorly and inferiorly. Impression: 1. Some soft tissue is present in the right middle ear canal without gross active bony destruction. Soft tissue fills the oval window. Small fragment of ossicle is noted. Probable facial nerve dehiscence is noted. 2. The study is otherwise unremarkable in appearance. Twan WOODARD CT ORDERABLES Final Result documented in this encounter Visit Diagnoses Diagnosis Post mastoidectomy sequelae Postmastoidectomy complication, unspecified Excessive granulation tissue Other abnormal granulation tissue Post mastoidectomy sequelae Postmastoidectomy complication, unspecified Excessive granulation tissue Other abnormal granulation tissue documented in this encounter Care Teams Security Representative Relationship Specialty Start Date End Date Mau Terry MD [address] [place] [phone] PCP - General 02/28/06 07/12/14 documented as of this encounter
--- OUTSIDE RECORDS SUMMARY | 2024-10-17 02:21 | XMS_ITS | Encounter Summary ---
Author Organization [facility] Address [address] [place] [address] Care Team Providers Care Jewelry Cutter Name Role Phone Mau Terry MD Primary Care Provider [phone] Encounter Details Date Type Department Care Team (Latest Contact Info) Description 03/01/2000 Outpatient Historical [facility] Facial Plastic Surgery- [address] [place] [address] Tano Mneeses MD NO ADDRESS ON FILE Other and unspecified malignant neoplasm of skin of other and unspecified parts of face (Primary Dx) Social History Tobacco Use Types Packs/Day Years Used Date Smoking Tobacco: Never Assessed Comments Unknown Sex and Gender Information Value Date Recorded Sex Assigned at Not on file 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
--- OUTSIDE RECORDS SUMMARY | 2024-10-17 02:21 | XMS_ITS | Encounter Summary ---
Author Organization [facility] Address [address] [place] [address] Care Team Providers Care Core Drier Name Role Phone Mau Terry MD Primary Care Provider Encounter Details Date Type Department Care Team (Latest Contact Info) Description 07/05/2001 Outpatient [facility] Facial Plastic Surgery- [address] [place] [address] Tano Meneses MD NO ADDRESS ON FILE UNCERTAIN BEHAV NEOPL SKIN (Primary Dx) Social History Tobacco Use Types Packs/Day Years Used Date Smoking Tobacco: Never Assessed Comments Unknown Sex and Gender Information Value Date Recorded Sex Assigned at Not on file 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
--- OUTSIDE RECORDS SUMMARY | 2024-10-17 02:21 | XMS_ITS | Encounter Summary ---
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 (Primary Dx); Follow-up examination, following unspecified surgery Social History Tobacco Use Types Packs/Day Years Used Date Smoking Tobacco: Never Assessed Comments Unknown Sex and Gender Information Value Date Recorded Sex Assigned at Not on file 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
--- OUTSIDE RECORDS SUMMARY | 2024-10-17 02:21 | XMS_ITS | Encounter Summary ---
Author Organization [facility] Address [address] [place] [address] Care Team Providers Care Naturopathic Physician Name Role Phone Mau Terry MD Primary Care Provider [phone] Encounter Details Date Type Department Care Team (Latest Contact Info) Description 05/31/2006 Outpatient Historical [facility] [address] [place] [address] Mau Terry MD [address] [place] [phone] DM w/o Complication Type II (CMS/HCC) (Primary Dx); Unspecified Essential Hypertension; Acute Esophagitis; Pain in Limb Social History Tobacco Use Types Packs/Day Years Used Date Smoking Tobacco: Never Assessed Comments Unknown Sex and Gender Information Value Date Recorded Sex Assigned at Not on file 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 Gender Identity Not on file Sexual Orientation Not on file documented as of this encounter Plan of Treatment Not on file documented as of this encounter Visit Diagnoses Diagnosis Type II or unspecified type diabetes mellitus without mention of complication, not stated as uncontrolled- Primary Unspecified essential hypertension Acute esophagitis Pain in limb Pain in soft tissues of limb documented in this encounter Care Teams Naturopathic Physician Relationship Specialty Start Date End Date Mau Terry MD [address] [place] [phone] PCP - General 02/28/06 07/12/14 documented as of this encounter
--- OUTSIDE RECORDS SUMMARY | 2024-10-17 02:21 | XMS_ITS | Encounter Summary ---
Author Organization [facility] Address [address] [place] [address] Care Team Providers Care Lead Accountant Name Role Phone Mau Terry MD Primary Care Provider [phone] Encounter Details Date Type Department Care Team (Latest Contact Info) Description 02/28/2006 Outpatient Historical [facility] [address] [place] [address] Mau Terry MD [address] [place] [phone] Encounters for Unspecified Administrative Purpose (Primary Dx) Social History Tobacco Use Types Packs/Day Years Used Date Smoking Tobacco: Never Assessed Comments Unknown Sex and Gender Information Value Date Recorded Sex Assigned at Not on file 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
--- OUTSIDE RECORDS SUMMARY | 2024-10-17 02:21 | XMS_ITS | Encounter Summary ---
Author Organization [facility] Address [address] [place] [address] Care Team Providers Care Real Estate Administrative Assistant Name Role Phone Mau Terry MD Primary Care Provider [phone] Encounter Details Date Type Department Care Team (Latest Contact Info) Description 05/10/2006 Outpatient [facility] Gastroenterology[address] [place] [address] Frederick Choudhury MD [address] [place] [address] Reflux Esophagitis (Primary Dx); Dysphagia Social History Tobacco Use Types Packs/Day Years Used Date Smoking Tobacco: Never Assessed Comments Unknown Sex and Gender Information Value Date Recorded Sex Assigned at Not on file 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
--- OUTSIDE RECORDS SUMMARY | 2024-10-17 02:21 | XMS_ITS | Encounter Summary ---
Author Organization [facility] Address [address] [place] [address] Care Team Providers Care Employment Services Director Name Role Phone Mau Terry MD Primary Care Provider [phone] Encounter Details Date Type Department Care Team (Latest Contact Info) Description 03/28/2006 Outpatient Historical 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 Gender Identity Not on file Sexual Orientation Not on file documented as of this encounter Plan of Treatment Not on file documented as of this encounter Visit Diagnoses Diagnosis Unspecified essential hypertension- Primary Type II or unspecified type diabetes mellitus without mention of complication, not stated as uncontrolled Need for prophylactic vaccination against Streptococcus pneumoniae (pneumococcus) Need for prophylactic vaccination against streptococcus pneumoniae (pneumococcus) Vaccine for influenza Need for prophylactic vaccination and inoculation against influenza documented in this encounter Care Teams Employment Services Director Relationship Specialty Start Date End Date Mau Terry MD [address] [place] [phone] PCP - General 02/28/06 07/12/14 documented as of this encounter
--- OUTSIDE RECORDS SUMMARY | 2024-10-17 02:21 | XMS_ITS | Encounter Summary ---
Author Organization [facility] Address [address] [place] [address] Care Team Providers Care District Plant Engineer Name Role Phone Mau Terry MD Primary Care Provider [phone] Encounter Details Date Type Department Care Team (Latest Contact Info) Description 10/05/2000 Outpatient Historical [facility] Ear, Nose and Throat [address] [place] 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
--- OUTSIDE RECORDS SUMMARY | 2024-10-17 02:21 | XMS_ITS | Encounter Summary ---
Author Organization [facility] Address [address] [place] [address] Care Team Providers Care Assembler Caterpillar Spider Name Role Phone Mau Terry MD Primary Care Provider [phone] Encounter Details Date Type Department Care Team (Latest Contact Info) Description 03/16/2006 Outpatient Historical [facility] [address] [facility] [address] [place] [address] Jamey Fraga MD NO ADDRESS ON FILE Other Screening Mammogram (Primary Dx) Social History Tobacco Use Types Packs/Day Years Used Date Smoking Tobacco: Never Assessed Comments Unknown Sex and Gender Information Value Date Recorded Sex Assigned at Not on file 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
--- OUTSIDE RECORDS SUMMARY | 2024-10-17 02:21 | XMS_ITS | Encounter Summary ---
Author Organization [facility] Address [address] [place] [address] Care Team Providers Care Public Safety Dispatcher Name Role Phone Mau Terry MD Primary Care Provider [phone] Encounter Details Date Type Department Care Team (Latest Contact Info) Description 03/16/2006 Outpatient [facility] [address] [place] [address] Mau Terry MD [address] [place] [phone] Other Screening Mammogram (Primary Dx) Social History Tobacco Use Types Packs/Day Years Used Date Smoking Tobacco: Never Assessed Comments Unknown Sex and Gender Information Value Date Recorded Sex Assigned at Not on file Legal Sex Female 3:01 AM CLASSIFICATION OFFICER Gender Identity Not on file Sexual Orientation Not on file documented as of this encounter Plan of Treatment Not on file documented as of this encounter Visit Diagnoses Diagnosis Other screening mammogram- Primary documented in this encounter Care Teams Public Safety Dispatcher Relationship Specialty Start Date End Date Mau Terry MD [address] [place] [phone] PCP - General 02/28/06 07/12/14 documented as of this encounter
--- OUTSIDE RECORDS SUMMARY | 2024-10-17 02:21 | XMS_ITS | Encounter Summary ---
Author Organization [facility] Address [address] [place] [address] Care Team Providers Care Starchmaker Name Role Phone Mau Terry MD Primary Care Provider [phone] Encounter Details Date Type Department Care Team (Latest Contact Info) Description 02/17/2000 Outpatient Historical [facility] Ruddy Calloway, Jonh Howell MD [address] [place] [phone] Unspecified essential hypertension (Primary Dx) Social History Tobacco Use Types Packs/Day Years Used Date Smoking Tobacco: Never Assessed Comments Unknown Sex and Gender Information Value Date Recorded Sex Assigned at Not on file Legal Sex Female 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
--- OUTSIDE RECORDS SUMMARY | 2024-10-17 02:21 | XMS_ITS | Encounter Summary ---
Author Organization [facility] Address [address] [place] [address] Care Team Providers Care Processor Solid Propellant Name Role Phone Mau Terry MD Primary Care Provider [phone] Encounter Details Date Type Department Care Team (Latest Contact Info) Description 09/08/1998 Outpatient Historical [facility] [address] [facility] [address] [place] [address] Jamey Fraga MD NO ADDRESS ON FILE Other screening mammogram (Primary Dx) Social History Tobacco Use Types Packs/Day Years Used Date Smoking Tobacco: Never Assessed Comments Unknown Sex and Gender Information Value Date Recorded Sex Assigned at Not on file 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
--- OUTSIDE RECORDS SUMMARY | 2024-10-17 02:21 | XMS_ITS | Encounter Summary ---
Author Organization [facility] Address [address] [place] [address] Care Team Providers Care Sole Leveling Machine Operator Name Role Phone Mau Terry MD Primary Care Provider [phone] Encounter Details Date Type Department Care Team (Latest Contact Info) Description 02/16/1998 Outpatient Historical [facility] Echocardiography - National [address] [place] [phone] X358 Social History Tobacco Use Types Packs/Day Years Used Date Smoking Tobacco: Never Assessed Comments Unknown Sex and Gender Information Value Date Recorded Sex Assigned at Not on file Legal Sex Female 3:01 AM GOLF COURSE KEEPER Gender Identity Not on file Sexual Orientation Not on file documented as of this encounter Plan of Treatment Not on file documented as of this encounter Visit Diagnoses Not on filedocumented in this encounter Care Teams Sole Leveling Machine Operator Relationship Specialty Start Date End Date Mau Terry MD [address] [place] [phone] PCP - General 02/28/06 07/12/14 documented as of this encounter
--- OUTSIDE RECORDS SUMMARY | 2024-10-17 02:21 | XMS_ITS | Encounter Summary ---
Author Organization [facility] Address [address] [place] [address] Care Team Providers Care Straight Line Press Setter Name Role Phone Mau Terry MD Primary Care Provider [phone] Encounter Details Date Type Department Care Team (Latest Contact Info) Description 10/31/2000 Outpatient Historical [facility] Head and Neck Surgery-[address] [place] [address] [place] [address] Tano Meneses MD NO ADDRESS ON FILE Other and unspecified malignant neoplasm of skin of other and unspecified parts of face (Primary Dx) Social History Tobacco Use Types Packs/Day Years Used Date Smoking Tobacco: Never Assessed Comments Unknown Sex and Gender Information Value Date Recorded Sex Assigned at Not on file 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
--- OUTSIDE RECORDS SUMMARY | 2024-10-17 02:21 | XMS_ITS | Encounter Summary ---
Author Organization 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) Social History Tobacco Use Types Packs/Day Years Used Date Smoking Tobacco: Never Assessed Comments Unknown Sex and Gender Information Value Date Recorded Sex Assigned at Not on file Legal Sex Female 3:01 AM CHIEF CONTROLLER Gender Identity Not on file Sexual Orientation Not on file documented as of this encounter Plan of Treatment Not on file documented as of this encounter Visit Diagnoses Diagnosis 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
--- OUTSIDE RECORDS SUMMARY | 2024-10-17 02:21 | XMS_ITS | Encounter Summary ---
Author Organization [facility] Address [address] [place] [address] Care Team Providers Care Store Merchandiser Name Role Phone Mau Terry MD Primary Care Provider [phone] Encounter Details Date Type Department Care Team (Latest Contact Info) Description 12/09/1999 Outpatient Historical [facility] Jonh Fox Jr., MD [address] [place] [address] General symptoms NEC (Primary Dx); Hypoactive sexual desire; Pure hypercholesterolem Social History Tobacco Use Types Packs/Day Years Used Date Smoking Tobacco: Never Assessed Comments Unknown Sex and Gender Information Value Date Recorded Sex Assigned at Not on file Legal Sex Female 3:01 AM PHARMACY BENEFIT MANAGER Gender Identity Not on file Sexual Orientation Not on file documented as of this encounter Plan of Treatment Not on file documented as of this encounter Visit Diagnoses Diagnosis General symptoms NEC- Primary Other general symptoms Hypoactive sexual desire Hypoactive sexual desire disorder Pure hypercholesterolem Pure hypercholesterolemia documented in this encounter Care Teams Store Merchandiser Relationship Specialty Start Date End Date Mau Terry MD [address] [place] [phone] PCP - General 02/28/06 07/12/14 documented as of this encounter
--- OUTSIDE RECORDS SUMMARY | 2024-10-17 02:21 | XMS_ITS | Encounter Summary ---
Author Organization [facility] Address [address] [place] [address] Care Team Providers Care Share Dairy Farmer Name Role Phone Mau Terry MD Primary Care Provider [phone] Encounter Details Date Type Department Care Team (Latest Contact Info) Description 10/31/2000 Outpatient [facility] Facial Plastic Surgery- [address] [place] [address] Tano Meneses MD NO ADDRESS ON FILE Other and unspecified malignant neoplasm of skin of other and unspecified parts of face (Primary Dx) Social History Tobacco Use Types Packs/Day Years Used Date Smoking Tobacco: Never Assessed Comments Unknown Sex and Gender Information Value Date Recorded Sex Assigned at Not on file 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
--- OUTSIDE RECORDS SUMMARY | 2024-10-17 02:21 | XMS_ITS | Encounter Summary ---
Author Organization [facility] Address [address] [place] [address] Care Team Providers Care Carpenter Repair Name Role Phone Mau Terry MD Primary Care Provider [phone] Encounter Details Date Type Department Care Team (Latest Contact Info) Description 03/08/2000 Outpatient Historical [facility] [address] [facility] [address] [place] [address] Jamey Fraga MD NO ADDRESS ON FILE Nonspecific abnormal findings on radiological or other examinations of the breast (Primary Dx) Social History Tobacco Use Types Packs/Day Years Used Date Smoking Tobacco: Never Assessed Comments Unknown Sex and Gender Information Value Date Recorded Sex Assigned at Not on file Legal Sex Female 3:01 AM AUTOMOBILE 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
--- OUTSIDE RECORDS SUMMARY | 2024-10-17 02:21 | XMS_ITS | Encounter Summary ---
Author Organization [facility] Address [address] [place] [address] Care Team Providers Care Model Maker Plaster Name Role Phone Mau Terry MD Primary Care Provider [phone] Encounter Details Date Type Department Care Team (Latest Contact Info) Description 01/02/2002 Outpatient Historical [facility] Jonh Fox Jr., MD [address] [place] [address] CHR SEROUS OM SIMP/NOS (Primary Dx); PERFORAT TYMPAN MEMB NOS Social History Tobacco Use Types Packs/Day Years Used Date Smoking Tobacco: Never Assessed Comments Unknown Sex and Gender Information Value Date Recorded Sex Assigned at Not on file Legal Sex Female 3:01 AM ENGLISH HORN PLAYER Gender Identity Not on file Sexual Orientation Not on file documented as of this encounter Plan of Treatment Not on file documented as of this encounter Visit Diagnoses Diagnosis Simple or unspecified chronic serous otitis media- Primary Perforation of tympanic membrane, unspecified documented in this encounter Care Teams Model Maker Plaster Relationship Specialty Start Date End Date Mau Terry MD [address] [place] [phone] PCP - General 02/28/06 07/12/14 documented as of this encounter
--- OUTSIDE RECORDS SUMMARY | 2024-10-17 02:21 | XMS_ITS | Encounter Summary ---
Author Organization [facility] Address [address] [place] [address] Care Team Providers Care Milk Processing Worker Name Role Phone Mau Terry MD Primary Care Provider [phone] Encounter Details Date Type Department Care Team (Latest Contact Info) Description 01/02/2002 Outpatient Historical [facility] Ear, Nose and Throat [address] [place] [address] [place] [address] Tenzin Vaughn [address] [place], [place] [address] CHRONIC MASTOIDITIS (Primary Dx); DEGEN/VASCUL DIS EAR NOS Social History Tobacco Use Types Packs/Day Years Used Date Smoking Tobacco: Never Assessed Comments Unknown Sex and Gender Information Value Date Recorded Sex Assigned at Not on file Legal Sex Female 3:01 AM SOLAR ENERGY INSTALLATION MANAGER Gender Identity Not on file Sexual Orientation Not on file documented as of this encounter Plan of Treatment Not on file documented as of this encounter Visit Diagnoses Diagnosis Chronic mastoiditis- Primary Degenerative and vascular disorders of ear, unspecified documented in this encounter Care Teams Milk Processing Worker Relationship Specialty Start Date End Date Mau Terry MD [address] [place] [phone] PCP - General 02/28/06 07/12/14 documented as of this encounter
--- OUTSIDE RECORDS SUMMARY | 2024-10-17 02:21 | XMS_ITS | Encounter Summary ---
Author Organization [facility] Address [address] [place] [address] Care Team Providers Care Leadership Development Consultant Name Role Phone Mau Terry MD Primary Care Provider [phone] Encounter Details Date Type Department Care Team (Latest Contact Info) Description 05/17/1998 Outpatient Historical [facility] Garret Nj MD NO ADDRESS ON FILE Gynecologic examination (Primary Dx) Social History Tobacco Use Types Packs/Day Years Used Date Smoking Tobacco: Never Assessed Comments Unknown Sex and Gender Information Value Date Recorded Sex Assigned at Not on file Legal Sex Female 3:01 AM EVENT PRODUCER Gender Identity Not on file Sexual Orientation Not on file documented as of this encounter Plan of Treatment Not on file documented as of this encounter Visit Diagnoses Diagnosis Gynecologic examination- Primary Gynecological examination documented in this encounter Care Teams Leadership Development Consultant Relationship Specialty Start Date End Date Mau Terry MD [address] [place] [phone] PCP - General 02/28/06 07/12/14 documented as of this encounter
--- OUTSIDE RECORDS SUMMARY | 2024-10-17 02:21 | XMS_ITS | Encounter Summary ---
Author Organization [facility] Address [address] [place] [address] Care Team Providers Care Account Associate Name Role Phone Mua Terry MD Primary Care Provider [phone] Encounter Details Date Type Department Care Team (Latest Contact Info) Description 04/19/2000 Outpatient Historical [facility] Jonh Fox Jr., MD [address] [place] [address] Unspecified essential hypertension (Primary Dx); Undiagnosed cardiac murmurs Social History Tobacco Use Types Packs/Day Years Used Date Smoking Tobacco: Never Assessed Comments Unknown Sex and Gender Information Value Date Recorded Sex Assigned at Not on file Legal Sex Female 3:01 AM TRIAL PARALEGAL Gender Identity Not on file Sexual Orientation Not on file documented as of this encounter Plan of Treatment Not on file documented as of this encounter Visit Diagnoses Diagnosis Unspecified essential hypertension- Primary Undiagnosed cardiac murmurs documented in this encounter Care Teams Account Associate Relationship Specialty Start Date End Date Mau Terry MD [address] [place] [phone] PCP - General 02/28/06 07/12/14 documented as of this encounter
--- OUTSIDE RECORDS SUMMARY | 2024-10-17 02:21 | XMS_ITS | Encounter Summary ---
Author Organization [facility] Address [address] [place] [address] Care Team Providers Care Hydro Plant Operator Name Role Phone Mau Terry MD Primary Care Provider [phone] Encounter Details Date Type Department Care Team (Latest Contact Info) Description 01/30/2001 Outpatient Historical [facility] Jonh Fox Jr., MD [address] [place] [address] Obesity, unspecified (Primary Dx); Other seborrheic keratosis; Unspecified essential hypertension Social History Tobacco Use Types Packs/Day Years Used Date Smoking Tobacco: Never Assessed Comments Unknown Sex and Gender Information Value Date Recorded Sex Assigned at Not on file Legal Sex Female 3:01 AM ASSISTANT OFFICE MANAGER Gender Identity Not on file Sexual Orientation Not on file documented as of this encounter Plan of Treatment Not on file documented as of this encounter Visit Diagnoses Diagnosis Obesity, unspecified- Primary Other seborrheic keratosis Unspecified essential hypertension documented in this encounter Care Teams Hydro Plant Operator Relationship Specialty Start Date End Date Mau Terry MD [address] [phone] PCP - General 02/28/06 07/12/14 documented as of this encounter
--- OUTSIDE RECORDS SUMMARY | 2024-10-17 02:21 | XMS_ITS | Encounter Summary ---
Author Organization [facility] Address [address] [facility] [address] Attn: [place] [address] Care Team Providers Care Mailroom Associate Name Role Phone Mau Terry MD Primary Care Provider [phone] Encounter Details Date Type Department Care Team (Late st Contact Info) Description 03/01/2001 Outpatient Historical Ruddy Calloway, Jonh Howell MD [address] [place] [phone] Social History Tobacco Use Types Packs/Day Years Used Date Smoking Tobacco: Never Assessed Comments Unknown Sex and Gender Information Value Date Recorded Sex Assigned at Not on file Legal Sex Female 3:01 AM SHIP PILOT Gender Identity Not on file Sexual Orientation Not on file documented as of this encounter Plan of Treatment Not on file documented as of this encounter Visit Diagnoses Not on filedocumented in this encounter Care Teams Mailroom Associate Relationship Specialty Start Date End Date Mau Terry MD [address] [place] [phone] PCP - General 02/28/06 07/12/14 documented as of this encounter
--- OUTSIDE RECORDS SUMMARY | 2024-10-17 02:21 | XMS_ITS | Encounter Summary ---
Author Organization [facility] Address [address] [place] [address] Care Team Providers Care Casino Cashier Manager Name Role Phone Mau Terry MD Primary Care Provider [phone] Encounter Details Date Type Department Care Team (Late st Contact Info) Description 05/08/2000 Outpatient Historical [facility] Facial Plastic Surgery- [address] [address] Social History Tobacco Use Types Packs/Day Years Used Date Smoking Tobacco: Never Assessed Comments Unknown Sex and Gender Information Value Date Recorded Sex Assigned at Not on file Legal Sex Female 3:01 AM DIABETES MANAGER Gender Identity Not on file Sexual Orientation Not on file documented as of this encounter Plan of Treatment Not on file documented as of this encounter Visit Diagnoses Not on filedocumented in this encounter Care Teams Casino Cashier Manager Relationship Specialty Start Date End Date Mau Terry MD [address] [place] [phone] PCP - General 02/28/06 07/12/14 documented as of this encounter
--- OUTSIDE RECORDS SUMMARY | 2024-10-17 02:21 | XMS_ITS | Encounter Summary ---
Author Organization [facility] Address [address] [facility] Attn: [place] [address] Care Team Providers Care All Round Butcher Name Role Phone Mau Terry MD Primary Care Provider [phone] Encounter Details Date Type Department Care Team (Late st Contact Info) Description 10/31/2000 Outpatient Historical Tano Meneses MD NO ADDRESS ON FILE Social History Tobacco Use Types Packs/Day Years Used Date Smoking Tobacco: Never Assessed Comments Unknown Sex and Gender Information Value Date Recorded Sex Assigned at Not on file Legal Sex Female 3:01 AM DATA ARCHITECT MANAGER Gender Identity Not on file Sexual Orientation Not on file documented as of this encounter Plan of Treatment Not on file documented as of this encounter Visit Diagnoses Not on filedocumented in this encounter Care Teams All Round Butcher Relationship Specialty Start Date End Date Mau Terry MD [address] [place] [phone] PCP - General 02/28/06 07/12/14 documented as of this encounter
--- OUTSIDE RECORDS SUMMARY | 2024-10-17 02:21 | XMS_ITS | Encounter Summary ---
Author Organization [facility] Address [address] [place] [address] Care Team Providers Care Ball Mill Mixer Name Role Phone Mau Terry MD Primary Care Provider Encounter Details Date Type Department Care Team (Latest Contact Info) Description 08/27/2000 Outpatient Historical [facility] Jonh Fox Jr., MD [address] [place] [address] Bronchitis, not specified as acute or chronic (Primary Dx); Other and unspecified chronic nonsuppurative otitis media Social History Tobacco Use Types Packs/Day Years Used Date Smoking Tobacco: Never Assessed Comments Unknown Sex and Gender Information Value Date Recorded Sex Assigned at Not on file Legal Sex Female 3:01 AM RESTAURANT BUSSER Gender Identity Not on file Sexual Orientation Not on file documented as of this encounter Plan of Treatment Not on file documented as of this encounter Visit Diagnoses Diagnosis Bronchitis, not specified as acute or chronic- Primary Other and unspecified chronic nonsuppurative otitis media documented in this encounter Care Teams Ball Mill Mixer Relationship Specialty Start Date End Date Mau Terry MD [address] [place] [phone] PCP - General 02/28/06 07/12/14 documented as of this encounter
--- OUTSIDE RECORDS SUMMARY | 2024-10-17 02:21 | XMS_ITS | Encounter Summary ---
Author Organization [facility] Address [address] [place] [address] Care Team Providers Care System Integration Engineer Name Role Phone Mau Terry MD Primary Care Provider [phone] Encounter Details Date Type Department Care Team (Latest Contact Info) Description 12/13/2000 Outpatient [facility] Facial Plastic Surgery[address] [place] [address] Tano Meneses MD NO ADDRESS ON FILE Follow-up examination, following unspecified surgery (Primary Dx) Social History Tobacco Use Types Packs/Day Years Used Date Smoking Tobacco: Never Assessed Comments Unknown Sex and Gender Information Value Date Recorded Sex Assigned at Not on file Legal Sex Female 3:01 AM CONSTRUCTION CONTROLLER Gender Identity Not on file Sexual Orientation Not on file documented as of this encounter Plan of Treatment Not on file documented as of this encounter Visit Diagnoses Diagnosis Follow-up examination, following unspecified surgery- Primary documented in this encounter Care Teams System Integration Engineer Relationship Specialty Start Date End Date Mau Terry MD [address] [place] [phone] PCP - General 02/28/06 07/12/14 documented as of this encounter
--- OUTSIDE RECORDS SUMMARY | 2024-10-17 02:21 | XMS_ITS | Encounter Summary ---
Author Organization [facility] Address [address] [place] [address] Care Team Providers Care Hydraulic Rockbreaker Operator Name Role Phone Mau Terry MD Primary Care Provider [phone] Encounter Details Date Type Department Care Team (Latest Contact Info) Description 03/02/2000 Outpatient Historical [facility] Jonh Fox Jr., MD [address] [place] [phone] Unspecified essential hypertension (Primary Dx); Obesity, unspecified Social History Tobacco Use Types Packs/Day Years Used Date Smoking Tobacco: Never Assessed Comments Unknown Sex and Gender Information Value Date Recorded Sex Assigned at Not on file Legal Sex Female 3:01 AM DIRECTOR BIOLOGICS Gender Identity Not on file Sexual Orientation Not on file documented as of this encounter Plan of Treatment Not on file documented as of this encounter Visit Diagnoses Diagnosis Unspecified essential hypertension- Primary Obesity, unspecified documented in this encounter Care Teams Hydraulic Rockbreaker Operator Relationship Specialty Start Date End Date Mau Terry MD [address] [place] [phone] PCP - General 02/28/06 07/12/14 documented as of this encounter
--- OUTSIDE RECORDS SUMMARY | 2024-10-17 02:21 | XMS_ITS | Encounter Summary ---
Author Organization [facility] Address [address] [place] [address] Care Team Providers Care Casing Tier Name Role Phone Mau Terry MD Primary Care Provider [phone] Encounter Details Date Type Department Care Team (Latest Contact Info) Description 08/31/2006 Outpatient Historical [facility] [address] [place] [address] Mau Terry MD [address] [place] [phone] DM w/o Complication Type II (CMS/HCC) (Primary Dx); Unspecified Essential Hypertension; Lateral Epicondylitis; Unspecified Infective Otitis Externa Social History Tobacco Use Types Packs/Day Years Used Date Smoking Tobacco: Never Assessed Comments Unknown Sex and Gender Information Value Date Recorded Sex Assigned at Not on file Legal Sex Female 3:01 AM BOX STAMPER Gender Identity Not on file Sexual Orientation Not on file documented as of this encounter Plan of Treatment Not on file documented as of this encounter Visit Diagnoses Diagnosis Type II or unspecified type diabetes mellitus without mention of complication, not stated as uncontrolled- Primary Unspecified essential hypertension Lateral epicondylitis Lateral epicondylitis of elbow Infective otitis externa, unspecified documented in this encounter Care Teams Casing Tier Relationship Specialty Start Date End Date Mau Terry MD [address] [place] [phone] PCP - General 02/28/06 07/12/14 documented as of this encounter
--- OUTSIDE RECORDS SUMMARY | 2024-10-17 02:21 | XMS_ITS | Encounter Summary ---
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) Social History Tobacco Use Types Packs/Day Years Used Date Smoking Tobacco: Never Assessed Comments Unknown Sex and Gender Information Value Date Recorded Sex Assigned at Not on file Legal Sex Female 3:01 AM STAFF COMMAND AND CONTROL OFFICER Gender Identity Not on file Sexual Orientation Not on file documented as of this encounter Plan of Treatment Not on file documented as of this encounter Visit Diagnoses Diagnosis Other and unspecified malignant neoplasm of skin of other and unspecified parts of face- Primary documented in this encounter Care Teams Principal Developer Relationship Specialty Start Date End Date Mau Terry MD [address] [place] [phone] PCP - General 02/28/06 07/12/14 documented as of this encounter
--- OUTSIDE RECORDS SUMMARY | 2024-10-17 02:21 | XMS_ITS | Encounter Summary ---
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); Benign hayley skin trunk Social History Tobacco Use Types Packs/Day Years Used Date Smoking Tobacco: Never Assessed Comments Unknown Sex and Gender Information Value Date Recorded Sex Assigned at Not on file Legal Sex Female 3:01 AM BUSINESS MANAGEMENT MANAGER Gender Identity Not on file Sexual Orientation Not on file documented as of this encounter Plan of Treatment Not on file documented as of this encounter Visit Diagnoses Diagnosis Other and unspecified malignant neoplasm of skin of other and unspecified parts of face- Primary Benign hayley skin trunk Benign neoplasm of skin of trunk, except scrotum documented in this encounter Care Teams Biosecurity Officer Relationship Specialty Start Date End Date Mau Terry MD [address] [place] [phone] PCP - General 02/28/06 07/12/14 documented as of this encounter
--- OUTSIDE RECORDS SUMMARY | 2024-10-17 02:21 | XMS_ITS | Encounter Summary ---
Author Organization [facility] Address [address] [place] [address] Care Team Providers Care Vice President Underwriting Name Role Phone Mau Terry MD Primary Care Provider [phone] Encounter Details Date Type Department Care Team (Latest Contact Info) Description 03/06/2006 Outpatient Historical [facility] [address] [place] [address] Mau Terry MD [address] [place] [phone] Dysphagia (Primary Dx) Social History Tobacco Use Types Packs/Day Years Used Date Smoking Tobacco: Never Assessed Comments Unknown Sex and Gender Information Value Date Recorded Sex Assigned at Not on file Legal Sex Female 3:01 AM PROFESSOR OF MANAGEMENT Gender Identity Not on file Sexual Orientation Not on file documented as of this encounter Plan of Treatment Not on file documented as of this encounter Procedures Procedure Name Priority Date/Time Associated Diagnosis Comments XR ESOPHAGUS BARIUM SWALLOW Routine 03/06/2006 12:01 AM PROFESSOR OF MANAGEMENT documented in this encounter Results * XR ESOPHAGUS BARIUM SWALLOW (03/06/2006 12:01 AM PROFESSOR OF MANAGEMENT) Anatomical Region Laterality Modality Abdomen Other 03/06/2006 12:0 1 AM PROFESSOR OF MANAGEMENT Narrative 03/06/2006 12:01 AM PROFESSOR OF MANAGEMENT BARIUM SWALLOW 03/06/2006 AT 1036: COMPARISONS: None. CLINICAL HISTORY: Dysphagia. FINDINGS: The preliminary view of the mediastinum is unremarkable. The patient was given barium and an effervescent to swallow under fluoroscopic conditions. Barium wasfollowed through the oropharynx into the esophagus to the level of the gastroesophageal junction. Focal narrowing is identified in the distal esophagus. Margins are smooth in appearance. Extrinsicmass is not excluded and clinical correlation is suggested. Proximal and mid esophagus appearswithin normal limits. The barium pill hangs up at the distal narrowing. IMPRESSIONS: Possible extrinsic lesion involving the distal esophagus causing delay of swallowing ofbarium tablet. Clinical correlation is suggested. - Dictated By: Segundo Lisa M.D., Ph.D. Electronically Signed By: Segundo Lisa M.D., Ph.D. Date Signed: 03/09/06 Procedure Note 03/12/2009 BARIUM SWALLOW 03/06/2006 AT 1036: COMPARISONS: None. CLINICAL HISTORY: Dysphagia. FINDINGS: The preliminary view of the mediastinum is unremarkable. The patient was given barium and an effervescent to swallow underfluoroscopic conditions. Barium wasfollowed through the oropharynx into the esophagus to the level of thegastroesophageal junction. Focal narrowing is identified in the distal esophagus. Margins are smoothin appearance. Extrinsicmass is not excluded and clinical correlation is suggested. Proximal and midesophagus appearswithin normal limits. The barium pill hangs up at the distal narrowing. IMPRESSIONS: Possible extrinsic lesion involving the distal esophagus causing delay ofswallowing ofbarium tablet. Clinical correlation is suggested. - Dictated By: Segundo Lisa M.D., Ph.D. Electronically Signed By: Segundo Lisa M.D., Ph.D. Date Signed: 03/09/06 Mau Terry MD DIAGNOSTIC IMAGING ORDERABLES Final Result documented in this encounter Visit Diagnoses Diagnosis Dysphagia- Primary documented in this encounter Care Teams Vice President Underwriting Relationship Specialty Start Date End Date Mau Terry MD [address] [place] [phone] PCP - General 02/28/06 07/12/14 documented as of this encounter
--- OUTSIDE RECORDS SUMMARY | 2024-10-17 02:21 | XMS_ITS | Encounter Summary ---
Author Organization [facility] Address [address] [place] [address] Care Team Providers Care Low Emission Automobile Designer Name Role Phone Mau Terry MD Primary Care Provider [phone] Encounter Details Date Type Department Care Team (Latest Contact Info) Description 01/13/2000 Outpatient Historical [facility] Jonh Fox Jr., MD [address] [place] [address] Attention to dressings and sutures (Primary Dx) Social History Tobacco Use Types Packs/Day Years Used Date Smoking Tobacco: Never Assessed Comments Unknown Sex and Gender Information Value Date Recorded Sex Assigned at Not on file Legal Sex Female 3:01 AM BUSINESS INTELLIGENCE DIRECTOR Gender Identity Not on file Sexual Orientation Not on file documented as of this encounter Plan of Treatment Not on file documented as of this encounter Visit Diagnoses Diagnosis Attention to dressings and sutures- Primary documented in this encounter Care Teams Low Emission Automobile Designer Relationship Specialty Start Date End Date Mau Terry MD [address] [place] [phone] PCP - General 02/28/06 07/12/14 documented as of this encounter
--- OUTSIDE RECORDS SUMMARY | 2024-10-17 02:21 | XMS_ITS | Encounter Summary ---
Author Organization [facility] Address [address] [place] [address] Care Team Providers Care Overedger Name Role Phone Mau Terry MD Primary Care Provider [phone] Encounter Details Date Type Department Care Team (Latest Contact Info) Description 07/11/2001 Outpatient Historical [facility] Ruddy Calloway, Jonh Howell MD [address] [place] [address] ACTINIC KERATOSIS (Primary Dx) Social History Tobacco Use Types Packs/Day Years Used Date Smoking Tobacco: Never Assessed Comments Unknown Sex and Gender Information Value Date Recorded Sex Assigned at Not on file Legal Sex Female 3:01 AM FIELD CLERK Gender Identity Not on file Sexual Orientation Not on file documented as of this encounter Plan of Treatment Not on file documented as of this encounter Visit Diagnoses Diagnosis Actinic keratosis- Primary documented in this encounter Care Teams Overedger Relationship Specialty Start Date End Date Mau Terry MD [address] [place] [phone] PCP - General 02/28/06 07/12/14 documented as of this encounter
--- OUTSIDE RECORDS SUMMARY | 2024-10-17 02:21 | XMS_ITS | Encounter Summary ---
Author Organization [facility] Address [address] [place] [address] Care Team Providers Care Healthcare Consultant Name Role Phone Mau Terry MD Primary Care Provider [phone] Encounter Details Date Type Department Care Team (Late st Contact Info) Description 04/30/2000 Outpatient Historical [facility] Facial Plastic Surgery- [address] [address] Social History Tobacco Use Types Packs/Day Years Used Date Smoking Tobacco: Never Assessed Comments Unknown Sex and Gender Information Value Date Recorded Sex Assigned at Not on file Legal Sex Female 3:01 AM NAPHTHA WASHING SYSTEM OPERATOR Gender Identity Not on file Sexual Orientation Not on file documented as of this encounter Plan of Treatment Not on file documented as of this encounter Visit Diagnoses Not on filedocumented in this encounter Care Teams Healthcare Consultant Relationship Specialty Start Date End Date Mau Terry MD [address] [place] [phone] PCP - General 02/28/06 07/12/14 documented as of this encounter
--- OUTSIDE RECORDS SUMMARY | 2024-10-17 02:21 | XMS_ITS | Encounter Summary ---
Author Organization [email or web address] Address [address] [facility] Attn: [place] [address] Care Team Providers Care Wheel Grinder Name Role Phone Mau Terry MD Primary Care Provider [phone] Encounter Details Date Type Department Care Team (Late st Contact Info) Description 09/07/2000 Outpatient Historical Tano Meneses MD NO ADDRESS ON FILE Social History Tobacco Use Types Packs/Day Years Used Date Smoking Tobacco: Never Assessed Comments Unknown Sex and Gender Information Value Date Recorded Sex Assigned at Not on file Legal Sex Female 3:01 AM DIRECTOR OPERATING Gender Identity Not on file Sexual Orientation Not on file documented as of this encounter Plan of Treatment Not on file documented as of this encounter Visit Diagnoses Not on filedocumented in this encounter Care Teams Wheel Grinder Relationship Specialty Start Date End Date Mau Terry MD [address] [place] [phone] PCP - General 02/28/06 07/12/14 documented as of this encounter
--- OUTSIDE RECORDS SUMMARY | 2024-10-17 02:21 | XMS_ITS | Encounter Summary ---
Author Organization [facility] Address [address] [place] [address] Care Team Providers Care Net Developer With Wcf Name Role Phone Mau Terry MD Primary Care Provider [phone] Encounter Details Date Type Department Care Team (Latest Contact Info) Description 05/01/2000 Outpatient [facility] Facial Plastic Surgery- [address] [place] [address] Tano Meneses MD NO ADDRESS ON FILE Other and unspecified malignant neoplasm of skin of other and unspecified parts of face (Primary Dx) Social History Tobacco Use Types Packs/Day Years Used Date Smoking Tobacco: Never Assessed Comments Unknown Sex and Gender Information Value Date Recorded Sex Assigned at Not on file Legal Sex Female 3:01 AM GREEN CHAIN WORKER Gender Identity Not on file Sexual Orientation Not on file documented as of this encounter Plan of Treatment Not on file documented as of this encounter Visit Diagnoses Diagnosis Other and unspecified malignant neoplasm of skin of other and unspecified parts of face- Primary documented in this encounter Care Teams Net Developer With Wcf Relationship Specialty Start Date End Date Mau Terry MD [address] [place] [phone] PCP - General 02/28/06 07/12/14 documented as of this encounter
--- OUTSIDE RECORDS SUMMARY | 2024-10-17 02:22 | XMS_ITS | Encounter Summary ---
Author Organization [facility] Address [address] [place] [address] Care Team Providers Care Software Developer Name Role Phone Mau Terry MD Primary Care Provider [phone] Encounter Details Date Type Department Care Team (Latest Contact Info) Description 02/13/2002 Outpatient Historical [facility] Ear, Nose and Throat [address] [place] [address] Tenzin Vaughn [address] [place] [address] CHRONIC MASTOIDITIS (Primary Dx); MALFUNC OTHER DEVICE/GRAFT Social History Tobacco Use Types Packs/Day Years Used Date Smoking Tobacco: Never Assessed Comments Unknown Sex and Gender Information Value Date Recorded Sex Assigned at Not on file Legal Sex Female 3:01 AM TAILINGS DAM PUMPER Gender Identity Not on file Sexual Orientation Not on file documented as of this encounter Plan of Treatment Not on file documented as of this encounter Visit Diagnoses Diagnosis Chronic mastoiditis- Primary Mechanical complication due to other implant and internal device, not elsewhere classified documented in this encounter Care Teams Software Developer Relationship Specialty Start Date End Date Mau Terry MD [address] [place] [phone] PCP - General 02/28/06 07/12/14 documented as of this encounter
--- OUTSIDE RECORDS SUMMARY | 2024-10-17 02:22 | XMS_ITS | Encounter Summary ---
Author Organization [facility] Address [address] [place] [address] Care Team Providers Care Reverberatory Furnace Operator Name Role Phone Mau Terry MD Primary Care Provider [phone] Encounter Details Date Type Department Care Team (Late st Contact Info) Description 01/02/2002 Outpatient Historical [facility] Ear, Nose [facility] Thro[facility] [address] [place] [address] [place] [address] Social History Tobacco Use Types Packs/Day Years Used Date Smoking Tobacco: Never Assessed Comments Unknown Sex and Gender Information Value Date Recorded Sex Assigned at Not on file Legal Sex Female 3:01 AM PE TEACHER Gender Identity Not on file Sexual Orientation Not on file documented as of this encounter Plan of Treatment Not on file documented as of this encounter Visit Diagnoses Not on filedocumented in this encounter Care Teams Reverberatory Furnace Operator Relationship Specialty Start Date End Date Mau Terry MD [address] [place] [phone] PCP - General 02/28/06 07/12/14 documented as of this encounter
--- OUTSIDE RECORDS SUMMARY | 2024-10-17 02:22 | XMS_ITS | Encounter Summary ---
Author Organization [facility] Address [address] Attn: [place] [address] Care Team Providers Care Sorting Livestock Worker Name Role Phone Mau Terry MD Primary Care Provider [phone] Encounter Details Date Type Department Care Team (Late st Contact Info) Description 02/13/2002 Outpatient Historical [facility]n [address] [place] [address] Social History Tobacco Use Types Packs/Day Years Used Date Smoking Tobacco: Never Assessed Comments Unknown Sex and Gender Information Value Date Recorded Sex Assigned at Not on file Legal Sex Female 3:01 AM MEDICAL SCIENTIFIC OFFICER Gender Identity Not on file Sexual Orientation Not on file documented as of this encounter Plan of Treatment Not on file documented as of this encounter Visit Diagnoses Not on filedocumented in this encounter Care Teams Sorting Livestock Worker Relationship Specialty Start Date End Date Mau Terry MD [address] [place] [phone] PCP - General 02/28/06 07/12/14 documented as of this encounter
--- OUTSIDE RECORDS SUMMARY | 2024-10-17 02:22 | XMS_ITS | Encounter Summary ---
Author Organization [facility] Address [address] [place] [address] Care Team Providers Care Environmental Service Aide Name Role Phone Mau Terry MD Primary Care Provider [phone] Encounter Details Date Type Department Care Team (Latest Contact Info) Description 02/13/2002 Outpatient Historical [facility] [place] [address] [place] [phone] Tenzin Vaughn [address] [place], [place] [address] CHRONIC MASTOIDITIS (Primary Dx); MALFUNC OTHER DEVICE/GRAFT Social History Tobacco Use Types Packs/Day Years Used Date Smoking Tobacco: Never Assessed Comments Unknown Sex and Gender Information Value Date Recorded Sex Assigned at Not on file Legal Sex Female 3:01 AM GALLERY DIRECTOR Gender Identity Not on file Sexual Orientation Not on file documented as of this encounter Plan of Treatment Not on file documented as of this encounter Visit Diagnoses Diagnosis Chronic mastoiditis- Primary Mechanical complication due to other implant and internal device, not elsewhere classified documented in this encounter Care Teams Environmental Service Aide Relationship Specialty Start Date End Date Mau Terry MD [address] [place] [phone] PCP - General 02/28/06 07/12/14 documented as of this encounter
--- OUTSIDE RECORDS SUMMARY | 2024-10-17 02:22 | XMS_ITS | Encounter Summary ---
Author Organization [facility] Address [address] [place] [address] Care Team Providers Care Continuous Loft Operator Name Role Phone Mau Terry MD Primary Care Provider [phone] Encounter Details Date Type Department Care Team (Latest Contact Info) Description 02/27/2002 Outpatient Historical [facility], Nose and Throat [address] [place] [address] [place] [phone] Tenzin Vaughn C [address] [place], [place] [id number] CHR NONSUP OM NOS/NEC (Primary Dx); PERFORAT TYMPAN MEMB NOS Social History Tobacco Use Types Packs/Day Years Used Date Smoking Tobacco: Never Assessed Comments Unknown Sex and Gender Information Value Date Recorded Sex Assigned at Not on file Legal Sex Female 3:01 AM PIZZA HUT TEAM MEMBER Gender Identity Not on file Sexual Orientation Not on file documented as of this encounter Plan of Treatment Not on file documented as of this encounter Visit Diagnoses Diagnosis Other and unspecified chronic nonsuppurative otitis media- Primary Perforation of tympanic membrane, unspecified documented in this encounter Care Teams Continuous Loft Operator Relationship Specialty Start Date End Date Mau Terry MD [address] [place] [phone] PCP - General 02/28/06 07/12/14 documented as of this encounter
--- OUTSIDE RECORDS SUMMARY | 2024-10-17 02:22 | XMS_ITS | Patient Health Record ---
Author Organization [facility] Address [address] [place], [place] [id number] Care Team Providers Care Biomedical Engineering Technologist Name Role Phone Kevin GUADALUPE, Godfrey Primary Care Provider Coy Rodriguez MD, Sourav [facility] [phone] Allergies Allergen (clinical drug ingredient) Drug/Non Drug Allergy documented on EMR Reaction Allergy Type Onset Date Status gabapentin gabapentin dizziness, nausea Drug Allergy Active sitagliptin Januvia Unknown Drug Allergy Activ e Reason For Referral No Information Medications Medication SIG (Take, Route, Frequency, Duration) Notes Start Date End Date Status magnesium oxide 500 mg orally as directed Active Centrum Adults Therapeutic Multiple Vitamins with Minerals 1 tab orally once a day Active Vitamin D3 5000 intl units orally as directed Active HumaLOG KwikPen 100 units/mL subcutaneously as directed A ctive metFORMIN 500 mg 1 tab orally 2 times a day Active GSH-3 Cell Defense as directed Active hydrochlorothiazide-irbes brent 12.5 mg-150 mg 1 tab orally once a day Active Calcium 500+D 500 mg-400 intl units orally as directed Active oxyBUTYnin 5 mg 1 tab orally 2 times a day Active Ambrotose Complex Powder as directed Active Super B Complex Vitamin B Complex orally as directed Active biotin 5000 mcg and 7500 mcg tablet orally as directed Active ketoconazole topical 2% 1 nestor applied to pically as directed Active Levemir FlexPen 100 units/mL subcutaneously as directed A ctive Social History Tobacco Use: Social History Observation Description Date Details (start date - stop date) Never Smoker NA - NA alcohol Question Answer Notes Did you have a drink contain ing alcohol in the past year? Yes How often did you have a dri nk containing alcohol in the past year? Monthly or less (1 point) How many drinks did you have on a typical day when you were drinking in the past year? 1 or 2 (0 points) How often did you have six o r more drinks on one occasion in the past year? 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 opiate analgesic (Z79.891) Active confirmed Problem Anxiety disorder (801750010) Other specified anxiety disorders (F41.8) Active confirmed Problem Hypersomnia (39032689) Hypersomnia, unspecified (G47.10) Active confirmed Problem Acquired spondylolisthesis (403725059) Spondylolisthesis , lumbar region (M43.16) Active confirmed Problem Spinal stenosis of lumbar region (89605232) Spinal stenosis, lumbar region (M48.06) Active confirmed Problem Radiculopathy due to lumbar intervertebral disc disorder (682399231095710) Intervertebral disc disorders with radiculopathy, lumbar region (M51.16) Active confirmed Problem Pain in left leg (183334826) Pain in left leg (M79.605) Active confirmed Problem Long-term current use of drug therapy (033681936) Other shelter (current) drug therapy (Z79.899) Active confirmed Problem Neurogenic claudication (536895311) Spinal stenosis, lumbar region with neurogenic claudication (M48.062) Active confirmed Plan Of Treatment No Information Insurance Providers Payer Name Payer Address Payer Phone Subscriber Number Group Number Insured Name Patient Relationship to Insured Coverage Start Date Coverage End Date [facility] [address] [place] [address] [id number] Sandra Lemus Self - patient is the insured Medical (General) History Medical History History ICD Code Arthritis Carpal tunnel syndrome, right Chronic cough Gastric reflux History of ovarian cancer Hypertension Skin cancer, face Osteoarthritis of both knees Dysuria Left sided sciatica Diabetes mellitus type II Neuropathy Surgical History Surgery Date(Month/Year) Right ear tissue debridement x 1988 Hysterectomy, 1994 Repair of torn meniscus, left knee, 10/22 012 Ovarian tumor, malignant, 03/2013 Hospitalization History Reason Date(Month/Year) Concussion and fractured skull after virgie ng thrown from horse, 2003 UTI, treated at [facility], 04/2017
--- OUTSIDE RECORDS SUMMARY | 2024-10-17 02:22 | XMS_ITS | Encounter Summary ---
Author Organization [facility] Address [address] [place] [address] Care Team Providers Care Oxidized Finish Plater Name Role Phone Mau Terry MD Primary Care Provider [phone] Encounter Details Date Type Department Care Team (Latest Contact Info) Description 01/15/2002 Outpatient Historical [facility] Ear, Nose and Throat [address] [place] 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
--- OUTSIDE RECORDS SUMMARY | 2024-10-17 02:22 | XMS_ITS | Encounter Summary ---
Author Organization [facility] Address [address] [place] [address] Care Team Providers Care Ncr Operator Name Role Phone Mau Terry MD Primary Care Provider [phone] Encounter Details Date Type Department Care Team (Latest Contact Info) Description 02/12/2002 Outpatient Historical [facility] Ear, Nose and Throat [address] [place] 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
--- OUTSIDE RECORDS SUMMARY | 2024-10-17 02:22 | XMS_ITS | Encounter Summary ---
Author Organization [facility] Address [address] [place] [address] Care Team Providers Care Automotive Technician Name Role Phone Mau Terry MD Primary Care Provider [phone] Encounter Details Date Type Department Care Team (Latest Contact Info) Description 05/14/2002 Outpatient Historical [facility] Ear, Nose and Throat [address] [place] 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
--- OUTSIDE RECORDS SUMMARY | 2024-10-17 02:22 | XMS_ITS | Encounter Summary ---
Author Organization [facility] Address [address] [place] [address] Care Team Providers Care Electronic Data Interchange Specialist Name Role Phone Mau Terry MD Primary Care Provider [phone] Encounter Details Date Type Department Care Team (Latest Contact Info) Description 04/04/2002 Outpatient Historical [facility] Ear, Nose and Throat [address] [place] 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
--- NOTE | 2024-10-17 02:23 | XRR_ITS ---
PROCEDURE INFORMATION: Exam: XR Chest Exam date and time: 10/17/2024 2:48 AM Age: 69 years old Clinical indication: Shortness of breath; Additional info: SOB TECHNIQUE: Imaging protocol: Radiologic exam of the chest. Views: 1 view. COMPARISON: CR XR chest 1V portable [id number] 03/09/2022 5:56 PM FINDINGS: Lungs: Diffuse interstitial prominence, most notable in the lung bases. No definitive consolidation. Pleural spaces: No definitive pleural effusion. No pneumothorax. Heart/Mediastinum: Heart size is poorly evaluated. Suggested mild cardiomegaly. Questionable central vascular congestion. Low lung volumes and compressive changes confound evaluation. Bones/joints: No acute osseous abnormalities are seen. XR/XR chest 1V portable [id number] IMPRESSION: Diffuse interstitial opacities, most prominent at the lung bases. Lung volumes appear decreased. Differential diagnosis include pulmonary edema and interstitial lung disease.
--- NOTE | 2024-10-17 02:34 | ECG_ITS ---
[facility] Date: 2024-10-17 Pat Name: Sandra Lemus Department: Room: Gender: Female Comp Field Case Manager: : 1955 Requested By: Perry Valentine Order Number: [id number] Jhon MD: Jeevan Stinson M.D. Measurements Intervals [place] Rate: 132 P: 0 NE: 0 QRS: -36 QRSD: 94 T: 85 QT: 317 QTc: 470 Interpretive Statements ATRIAL FIBRILLATION WITH RAPID VENTRICULAR RESPONSE LEFT AXIS DEVIATION [QRS AXIS < -30] ANTEROSEPTAL MYOCARDIAL INFARCTION , OF INDETERMINATE AGE [40+ ms Q WAVE IN V1-V4] Compared to ECG 03/09/2022 18:56:24 Left-axis deviation now present Sinus rhythm no longer present First degree AV block no longer present Myocardial infarct finding still present Electronically Signed On 10-23-2024 09:23:11 CDT by Jeevan Stinson M.D. [email or web address]
[2024-10-17 02:43] LABS: Hematocrit 43.6 % (36-47); Hemoglobin 13.90 g/dL (11.27-16.99); Mean Corpuscular HGB Conc 31.9 g/dL (30-55); Mean Corpuscular Hemoglobin 28.4 pg (27-33); Mean Corpuscular Volume 89.2 fl (85-98); Nucleated Red Blood Cells % 0 %; Platelet Count 308 10^3/cmm (157-399); Red Blood Count 4.89 10^6/uL (3.85-5.65); White Blood Count 17.70 10^3/uL (3.29-11.43)
[2024-10-17 03:03] LABS: Alanine Aminotransferase 20 U/L (0-33); Albumin Level 3.3 g/dL (3.5-5.2); Alkaline Phosphatase 148 U/L (35-105); Anion Gap 17.2 (5-19); Aspartate Amino Transferase 26 U/L (0-32); Carbon Dioxide 24 mmol/L (22-29); Chloride 105 mmol/L (98-107); Creatinine Clr Calc Pharmacy 21.3282; Globulin 4.3 g/dL (1.3-4.6); Glucose 238 mg/dL (65-115); Potassium 4.2 mmol/L (3.5-5.1); Sodium 142 mmol/L (136-145); Total Protein 7.6 g/dL (6.6-8.7)
[2024-10-17 03:05] LABS: Troponin(5th) Baseline 60 ng/L (0-10)
[2024-10-17 03:24] LABS: Blood Urea Nitrogen 29 mg/dL (8-23); Calcium 9.0 mg/dL (8.5-10.5); Magnesium 2.4 mg/dL (1.7-2.3); NT Pro B Type Natriuretic Pept 34136 pg/mL (0-125); Osmolality Calculated 308 mOsm/kg (285-295)
[2024-10-17] MEDS: bumetanide 0.25 mg/mL SDV 4 mL 1 MG IVP ×3 (04:18→20:57)
[2024-10-17 04:26] LABS: Glucose Urine UA 1+ (Normal); Nitrate Urine Negative (Negative); Specific Gravity, Urine 1.025 (1.005-1.030)
[2024-10-17 04:31] LABS: Add Urine Microscopic? YES
[2024-10-17 05:05] LABS: UA Slide Review UA Slide Review Perf
[2024-10-17 05:15] LABS: Troponin 5 2HR 56.40 ng/L (0-10)
[2024-10-17 05:21] LABS: Troponin 5 2HR Delta -3.60 ABS# (0-10)
--- NOTE | 2024-10-17 05:42 | W.ED.SOB ---
HPI - SOB/Dyspnea General: Chief Complaint: Shortness of Breath/Dyspnea Stated Complaint: Hard to breath Time Seen by Provider: 10/17/24 02:22 History of Present Illness: HPI Narrative: Elderly female with history of AFib, diabetes (poorly controlled), and chronic lower back disc problems presents with worsening shortness of breath and persistent leg swelling. She reports increased shortness of breath today, especially after physical therapy this morning, and describes wheezing that prompted her to come to the ER. She uses a pillow to sleep due to difficulty breathing when lying flat. She has been weak for the past 1-2 years and struggles to walk short distances. Leg swelling has not improved despite taking Bumex. She denies any history of blood clots. Her notes that her symptoms are about the same as a week ago, but shortness of breath was worse tonight. She also reports urinary incontinence. Related Data Home Medications ?Medication ?Instructions ?Recorded ?Confirmed insulin aspart U-100 100 unit/mL See Rx Instructions .Route .COMPLEX 03/09/22 10/15/24 (3 mL) subcutaneous pen (Novolog FlexPen U-100 Insulin aspart) Marine Phytoplankton 250 mg PO DAILY 10/04/22 10/15/24 vitamins A,C,V-fzzk-nbvhnc 4,296 1 cap PO BID 06/19/23 10/15/24 mcg-226 mg-90 mg capsule (PreserVision AREDS) gabapentin 100 mg capsule 100 mg PO BID 08/05/24 10/15/24 magnesium 250 mg tablet 250 mg PO DAILY 08/05/24 10/15/24 Previous Rx's ?Medication ?Instructions ?Recorded semaglutide 2 mg/dose (8 mg/3 mL) 2 mg (0.75 mL) SUBCUT .weekly #3 mL 05/31/23 subcutaneous pen injector (Ozempic) insulin degludec 200 unit/mL (3 80 unit (0.4 mL) SUBCUT DAILY #9 mL 08/21/23 mL) subcutaneous pen (Tresiba FlexTouch U-200 insulin) albuterol sulfate 90 mcg/actuation 2 puff inhalation Q6H PRN 02/13/24 aerosol inhaler (Ventolin HFA) shortness of breath or wheezing #8.5 grams galantamine 4 mg tablet 4 mg PO BID #60 tabs 05/20/24 rollaid walker with seat #1 ea 08/05/24 potassium chloride 20 mEq 40 meq (2 x 20 mEq) PO BID #120 08/15/24 tablet,extended release tabs bumetanide 1 mg tablet 1 mg PO BID #100 tabs 09/01/24 ezetimibe 10 mg tablet 10 mg PO DAILY #90 tabs 09/01/24 irbesartan 150 mg tablet See Rx Instructions .Route 09/02/24 .COMPLEX #90 tabs omeprazole 40 mg capsule,delayed 40 mg PO BID #120 caps 10/15/24 release ondansetron 4 mg disintegrating 4 mg PO Q6H PRN nausea and 10/15/24 tablet vomiting #60 tabs Allergies Allergy/AdvReac Type Severity Reaction Status Date / Time sitagliptin (From Apruv) Allergy Unknown Unknown Verified 10/15/24 14:55 empagliflozin (From Allergy Unknown Verified 10/15/24 14:55 Jardiance) PFSH ED PFSH: Medical History CKD (chronic kidney disease), stage IV CKD stage 3b, GFR 30-44 ml/min Diabetic nephropathy Squamous cell carcinoma of skin Nephrolithiasis History of ovarian cancer Chronic back pain Stage 3a chronic kidney disease (CKD) HLD (hyperlipidemia) Insulin dependent diabetes mellitus Essential hypertension Obesity Surgical History History of carpal tunnel release History of decompression of ulnar nerve H/O: hysterectomy Social History Smoking and tobacco/nicotine status: never used tobacco/nicotine Second hand smoke exposure: No Alcohol intake: never Substance/Drug Use: never Caregiver/support person: No Lives independently: No Household members: spouse Marital status: Number of children: 1 service: No Current occupational status: unemployed Current occupational exposures/hazards: No Pets and animals: No Do you think of yourself as: Straight/Heterosexual Current gender identity: Female Physical Exam Const: COMMON NORMALS: no acute distress, patient oriented x3 and alert HENMT: COMMON NORMALS: normocephalic and atraumatic HEAD & SCALP: normocephalic and atraumatic Eye: COMMON NORMALS: Equal, round and reactive pupils present, EOMs intact bilaterally and no scleral icterus PUPIL: Yes Equal, round and reactive pupils present Resp: OTHER: mild tachypnea, crackles in both bases Cardio: OTHER: irregularly irregular, tachycardic, no murmur, 2+ pitting edema of the feet/legs to the mid thigh GI: COMMON NORMALS: Normal to inspection, nondistended, normoactive bowel sounds present, Soft to palpation and non-tender PALPATION: Yes Soft to palpation Neuro: COMMON NORMALS: patient oriented x3 SENSORIUM/ORIENTATION: Yes alert Skin: COMMON NORMALS: no rashes or lesions noted GENERAL SKIN EXAM: no rashes or lesions noted Course Vital Signs: Vital signs: Vital Signs Temperature 99 F 10/17/24 02:10 Pulse Rate 138 H 10/17/24 02:10 Respiratory Rate 16 10/17/24 02:10 Blood Pressure 139/74 10/17/24 02:10 Pulse Oximetry 93 10/17/24 02:10 Oxygen Delivery Me thod Room Air 10/17/24 02:10 MDM - SOB/Dyspnea Medical Decision Making In summary, patient is a 69 old female seen for worsening shortness of breath and palpitations. She arrives in atrial fibrillation with RVR. Chest x-ray shows bilateral pleural effusions and increased vascular markings. She has pitting edema in the legs and was given IV Bumex. Chronic kidney disease appears unchanged. She was given IV Cardizem. Additionally, she has never required oxygen but now is on 2 L as she was satting in the upper 80s on room air at rest. She will be admitted to the hospitalist service for further diuresis and observation and care Lab Data 10/17/24 02:40 10/17/24 02:40 Labs/Radiology: Radiology Impressions Chest X-Ray 10/17/24 02:23 IMPRESSION: Diffuse interstitial opacities, most prominent at the lung bases. Lung volumes appear decreased. Differential diagnosis include pulmonary edema and interstitial lung disease. Laboratory Results WBC 17.70 10^3/uL (3.29-11.43) H 10/17/24 02:40 RBC 4.89 10^6/uL (3.85-5.65) 10/17/24 02:40 Hgb 13.90 g/dL (11.27-16.99) 10/17/24 02:40 Hct 43.6 % (36-47) 10/17/24 02:40 MCV 89.2 fl (85-98) 10/17/24 02:40 MCH 28.4 pg (27-33) 10/17/24 02:40 MCHC 31.9 g/dL (30-55) 10/17/24 02:40 RDW 13.4 % (12.1-15.1) 10/17/24 02:40 Plt Count 308 10^3/cmm (157-399) 10/17/24 02:40 MPV 10.7 fL (7.4-10.4) H 10/17/24 02:40 Neut % (Auto) 86.8 % 10/17/24 02:40 Lymph % (Auto) 5.8 % 10/17/24 02:40 [place] % (Auto) 5.9 % 10/17/24 02:40 Eos % (Auto) 0.4 % 10/17/24 02:40 Baso % (Auto) 0.5 % 10/17/24 02:40 Neut # (Auto) 15.37 10^3/uL (1.8-7.7) H 10/17/24 02:40 Lymph # (Auto) 1.0 10^3/uL (0.8-4.8) 10/17/24 02:40 [place] # (Auto) 1.1 10^3/uL (0.2-0.9) H 10/17/24 02:40 Eos # (Auto) 0.1 10^3/uL (0.0-0.8) 10/17/24 02:40 Baso # (Auto) 0.1 10^3/uL (0.0-0.1) 10/17/24 02:40 Nucleated RBC % (auto) 0 % 10/17/24 02:40 Nucleated RBCs # 0.0 /100WBC 10/17/24 02:40 Sodium 142 mmol/L (136-145) 10/17/24 02:40 Potassium 4.2 mmol/L (3.5-5.1) 10/17/24 02:40 Chloride 105 mmol/L (98-107) 10/17/24 02:40 Carbon Dioxide 24 mmol/L (22-29) 10/17/24 02:40 Anion Gap 17.2 (5-19) 10/17/24 02:40 BUN 29 mg/dL (8-23) H 10/17/24 02:40 Creatinine 2.7 mg/dL (0.5-0.9) H 10/17/24 02:40 GFR Calculation 17.6 mL/min (90-130) L 10/17/24 02:40 Glucose 238 mg/dL (65-115) H 10/17/24 02:40 Calculated Osmolality 308 mOsm/kg (285-295) H 10/17/24 02:40 Calcium 9.0 mg/dL (8.5-10.5) 10/17/24 02:40 Magnesium 2.4 mg/dL (1.7-2.3) H 10/17/24 02:40 Total Bilirubin 0.3 mg/dL (0.15-1.2) 10/17/24 02:40 AST 26 U/L (0-32) 10/17/24 02:40 ALT 20 U/L (0-33) 10/17/24 02:40 Alkaline Phosphatase 148 U/L (35-105) H 10/17/24 02:40 Troponin T Baseline 60 ng/L (0-10) H 10/17/24 02:40 Troponin T 120 Minute 56.40 ng/L (0-10) H 10/17/24 04:50 Delta Troponin T -3.60 ABS# (0-10) L 10/17/24 04:50 NT-Pro-B Natriuret Pep 97954 pg/mL (0-125) H 10/17/24 02:40 Total Protein 7.6 g/dL (6.6-8.7) 10/17/24 02:40 Albumin 3.3 g/dL (3.5-5.2) L 10/17/24 02:40 Globulin 4.3 g/dL (1.3-4.6) 10/17/24 02:40 Urine Color Yellow (Yellow) 10/17/24 03:53 Urine Appearance Cloudy (CLEAR) A 10/17/24 03:53 Urine pH 8.0 (5-7) A 10/17/24 03:53 Ur Specific [place] 1.025 (1.005-1.030) 10/17/24 03:53 Urine Protein 4+ (Negative) A 10/17/24 03:53 Urine Glucose (UA) 1+ (Normal) H 10/17/24 03:53 Urine Ketones Trace (Negative) 10/17/24 03:53 Urine Blood 1+ (Negative) A 10/17/24 03:53 Urine Nitrate Negative (Negative) 10/17/24 03:53 Urine Bilirubin Negative (Negative) 10/17/24 03:53 Urine Urobilinogen 0.2 mg/dL (Negative) 10/17/24 03:53 Ur Leukocyte Esterase Negative (Negative) 10/17/24 03:53 Urine RBC 6-10 /hpf (0-2) 10/17/24 03:53 Urine WBC 51-100 /hpf (0-5) H 10/17/24 03:53 Ur Squamous Epith Cells 0-5 /hpf (0-5) 10/17/24 03:53 Amorphous Sediment Not Reportable 10/17/24 03:53 Urine Bacteria Trace /hpf (NONE) 10/17/24 03:53 Hyaline Casts 10.73 /lpf 10/17/24 03:53 All radiology interpretation(s) finalized by discharge EKG Data EKG 1: Interpretation: [id number] rvr rate of 132, no ST elevation/depression, pmq=259 Discharge Plan Discharge Patient Disposition: Admitted As Inpatient Clinical Impression: Acute exacerbation of CHF (congestive heart failure), CKD (chronic kidney disease), Atrial fibrillation with rapid ventricular response Condition: Stable Coding Level of Care Code ED Process Controls Technician for Jan Mancuso
[2024-10-17] MEDS: dilTIAZem 5 mg/mL SDV 5 mL 10 MG IVP (05:52)
--- NOTE | 2024-10-17 07:29 | PC.NURSE ---
THIS NURSE ASSUMED CARE @ [id number].
--- NOTE | 2024-10-17 07:43 | P.HP_ITS ---
Providers/Chief Complaint 2 Admitting Physician: Derian Hsieh MD Primary Care Provider: Jose Bah MD Chief Complaint: Hard to breathe History of Present Illness Sandra Lemus is a 69 year old female comes in with palpitations and difficulty breathing. She has had worsening leg swelling, orthopnea dyspnea on exertion. She came to the ER and was found to have atrial fibrillation with rapid ventricular response bilateral pleural effusions and pulmonary vascular congestion. Patient was given Bumex and Cardizem in the emergency department. I was asked to admit her. Patient is companied by her Tenzin. Patient on 03/09/2022 had chest x-ray okay no effusions. On echo she had LVEF 56% at that time and mild left atrial enlargement. EKG today showed A-fib. EKG 03/14/2022 sinus rhythm with poor septal R wave progression consistent with past septal OH. Her Holter monitor 03/22/2022 showed sinus rhythm with first-degree AV block and PVCs no A-fib at that time Renal function used to run creatinine of 1.0 in 2021 since end of 2023 she is run creatinine of around 2. She admits to acute worsening of leg edema, abdominal edema, dyspnea on exertion and orthopnea. She has some snoring but not terribly loud per her 's report. She has not been treated diagnosed or treated for sleep apnea but she is reluctant to wear CPAP because her was diagnosed and did not tolerate it well. I did supervisor counseling and guidance her regarding leg edema and increased pulmonary pressures related to sleep apnea and she is somewhat willing to attempt treatment and diagnosis. I also talked her about obesity and she is already on Ozempic but she had some GI upset and vomiting. Additionally she has a history of esophageal stricture dilated years ago about 15 years ago. Recently she has had some trouble swallowing bread and meat sometimes she vomits water if drinking too fast. 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 She has 1 child Review of Systems 2 Narrative: General positive for fluid weight gain no fevers chills Cardiovascular positive for chest pain on occasion as well as palpitations. She has dyspnea on exertion. She states the chest pain is not reliably reproduced Respiratory positive for orthopnea dyspnea on exertion some cough some wheezing GI positive for nausea vomiting with her stricture she has also had diarrhea and incontinence of stool last colonoscopy is between 5 and 10 years ago. 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 She denies seizures Heme no history of blood clots in legs or lungs Malignancy history positive for ovarian cancer she had hysterectomy and appendectomy at that time. She is also had some skin cancers Medications/Allergies Home Medications ?Medication ?Instructions ?Recorded ?Confirmed ?Last Taken ?Type insulin aspart U-100 100 unit/mL See Rx Instructions . Route .COMPLEX 03/09/22 10/15/24 03/28/23 22:00 History (3 mL) subcutaneous pen (Novolog FlexPen U-100 Insulin aspart) Marine Phytoplankton 250 mg PO DAILY 10/04/2203/28/23 History semaglutide 2 mg/dose (8 mg/3 mL) 2 mg (0.75 mL) SUBCU T .weekly #3 mL 05/31/23 10/15/24 08/10/24 Rx subcutaneous pen injector (Ozempic) vitamins A,C,B-qccb-kkvvgv 4,296 1 cap PO BID 06/19/23 10/15/24 Unknown History mcg-226 mg-90 mg capsule (PreserVision AREDS) insulin degludec 200 unit/mL (3 80 unit (0.4 mL) SUBCU T DAILY #9 mL 08/21/23 10/15/24 Unknown Rx mL) subcutaneous pen (Tresiba FlexTouch U-200 insulin) albuterol sulfate 90 mcg/actuation 2 puff inhalation Q 6H PRN 02/13/24 10/15/24 Unknown Rx aerosol inhaler (Ventolin HFA) shortness of breath or wheezing #8.5 grams galantamine 4 mg tablet 4 mg PO BID #60 tabs 5 10/15/24 Unknown Rx gabapentin 100 mg capsule 100 mg PO BID 08/05/2410/15 Unknown History magnesium 250 mg tablet 250 mg PO DAILY 08/05/2408/10/24 History rollaid walker with seat #1 ea 08/05/24 10/17/24 Unkn own Rx potassium chloride 20 mEq 40 meq (2 x 20 mEq) PO BID # 120 08/15/24 10/15/24 Unknown Rx tablet,extended release tabs bumetanide 1 mg tablet 1 mg PO BID #100 tabs 10/15/24 Unknown Rx ezetimibe 10 mg tablet 10 mg PO DAILY #90 tabs 08/2110/15/24 Unknown Rx irbesartan 150 mg tablet See Rx Instructions .Route 0 09/02/24 10/15/24 Unknown Rx .COMPLEX #90 tabs omeprazole 40 mg capsule,delayed 40 mg PO BID #120 cap s 10/15/24 10/15/24 Unknown Rx release ondansetron 4 mg disintegrating 4 mg PO Q6H PRN nausea and 10/15/24 10/15/24 Unknown Rx tablet vomiting #60 tabs Allergies Allergy/AdvReac Type Severity Reaction Status Date / Time sitagliptin (From Apruvia) Allergy Unknown Unknown Verified 10/15/24 14:55 empagliflozin (From Allergy Unknown Verified 10/15/24 14:55 Jardiance) PFSH Acute 2 PFSH: Medical History CKD (chronic kidney disease), stage IV CKD stage 3b, GFR 30-44 ml/min Diabetic nephropathy Squamous cell carcinoma of skin Nephrolithiasis History of ovarian cancer Chronic back pain Stage 3a chronic kidney disease (CKD) HLD (hyperlipidemia) Insulin dependent diabetes mellitus Essential hypertension Obesity Surgical History History of carpal tunnel release History of decompression of ulnar nerve H/O: hysterectomy Social History (Updated 10/17/24 @ 07:52 by Derian Hsieh MD) Smoking and tobacco/nicotine status: never used tobacco/nicotine Second hand smoke exposure: No Alcohol intake: current Alcohol intake frequency: few times a month Substance/Drug Use: never Additional social history: She wants full code as discussed with Tenzin and myself 10/17/2024 by Derian Hsieh MD Caregiver/support person: No Lives independently: No Household members: spouse Marital status: Number of children: 1 service: No Current occupational status: unemployed Current occupational exposures/hazards: No 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 Pets and animals: No Do you think of yourself as: Straight/Heterosexual Current gender identity: Female Vitals/I&O/Wt Last Vital Signs Temp 99 F 10/17/24 02:10 Pulse 83 10/17/24 07:28 Resp 18 10/17/24 07:28 BP 150/89 10/17/24 07:28 Pulse Ox 97 10/17/24 07:28 O2 Del Method Room Air 10/17/24 07:28 Weight last 48 hrs Weight 88.451 kg Physical Exam 2 Narrative: General well-developed well-nourished female moderately obese Oral Mallampati 1 with poor dentition CV regular rate and rhythm currently sinus rhythm Lungs diminished air movement at the bases trace crackles in the midlung monte good air movement in upper lung monte Abdomen positive bowel sounds soft obese nontender Calves 3+ edema on the right 3/4 on the left. The right leg is larger than the left There is some edema in the hips and thighs Mentation clear but she is a poor historian Data 10/17/24 02:40 10/17/24 02:40 A&P Assessment and plan (1) Paroxysmal atrial fibrillation: Patient is now in sinus rhythm but due to anasarca and kidney disease I am going to have her admitted for diuresis and consultation with Dr. Masterson the paper novelty maker who I have already called. (2) CKD (chronic kidney disease): Known proteinuria diabetes hypertension. Cannot exclude sleep apnea (3) Acute exacerbation of CHF (congestive heart failure): We know she has diastolic dysfunction with A-fib and also likely pulmonary hypertension with sleep apnea but that is not diagnosed. I recommended that she follow-up for sleep apnea workup (4) CKD (chronic kidney disease), stage IV: Continue with Dr. Masterson. I continued irbesartan for now (5) Type 2 diabetes mellitus: 1600-calorie ADA weight loss diet and sliding scale insulin. Continue home insulin she is on high-dose degludec at 80 units daily (6) Obesity: Counseled regarding weight loss diet I recommend that she start daily weights calorie counting. She may be accounted for further Ozempic but likely at a lower dose and she needs to have her esophageal stricture evaluated (7) History of esophageal stricture: See above needs EGD possibly dilation PDMP PDMP Reviewed: Not Reviewed Attestations 2 Medical Necessity Statement*: Patient mid to the hospital for diuresis and treatment for acute on chronic kidney disease anticipated to stay greater than 2 midnights Coding Level of Care Code Acute Code for Chg Fwd Diagnoses Paroxysmal atrial fibrillation I48.0 CKD (chronic kidney disease) N18.9 Acute exacerbation of CHF (congestive heart failure) I50.9 CKD (chronic kidney disease), stage IV N18.4 Type 2 diabetes mellitus E11.9 Obesity E66.9 History of esophageal stricture Z87.19
--- NOTE | 2024-10-17 07:55 | PM.CONSULT ---
Providers/Reason For Consult Consulting Physician/Specialty*: dayton hopkins md / telenephrology Reason for Consult*: MANUELITO on CKD Requesting Physician: Dr Hsieh and Dr Bear Attending Physician: Derian Hsieh MD Primary Care Provider: Jose Bah MD History of Present Illness History of Present Illness Sandra Lemus is a 69 year old female History of A-fib, diabetes, progressive renal insufficiency. Creatinine was normal approximately 1.5 years ago and is now increased over the 4 mg/dL. Patient has back pain and was at physical therapy yesterday. The patient presented as she has severe shortness of breath. Palpitations back pain edema difficulty breathing. Her history includes progressive renal insufficiency she is followed by Dr. Bey at [facility]. She has history of heart failure preserved EF, hypertension, hyperlipidemia. The patient is on Ozempic and unfortunately her weight is gone up from diuretics. Per chart she has renal ultrasound with cyst. She has diabetes complicated by neuropathy nephropathy and retinopathy. She also has history of ovarian cancer and chronic back pain. She denies using NSAIDs Review of Systems Narrative: Shortness of breath orthopnea dyspnea palpitation headaches poor appetite edema abdominal pain back pain poor vision. Positive leg pain. Medications/Allergies Home Medications ?Medication ?Instructions ?Recorded ?Confirmed ?Last Taken ?Type insulin aspart U-100 100 unit/mL See Rx Instructions .Route .COMPLEX 03/09/22 10/15/24 03/28/23 22:00 History (3 mL) subcutaneous pen (Novolog FlexPen U-100 Insulin aspart) [place] 250 mg PO DAILY 10/04/22 10/15/24 03/28/23 History semaglutide 2 mg/dose (8 mg/3 mL) 2 mg (0.75 mL) SUBCUT .weekly #3 mL 05/31/23 10/15/24 08/10/24 Rx subcutaneous pen injector (Ozempic) vitamins A,C,Z-rccf-zqyjen 4,296 1 cap PO BID 06/19/23 10/15/24 Unknown History mcg-226 mg-90 mg capsule (PreserVision AREDS) insulin degludec 200 unit/mL (3 80 unit (0.4 mL) SUBCUT DAILY #9 mL 08/21/23 10/15/24 Unknown Rx mL) subcutaneous pen (Tresiba FlexTouch U-200 insulin) albuterol sulfate 90 mcg/actuation 2 puff inhalation Q6H PRN 02/13/24 10/15/24 Unknown Rx aerosol inhaler (Ventolin HFA) shortness of breath or wheezing #8.5 grams galantamine 4 mg tablet 4 mg PO BID #60 tabs 05/20/24 10/15/24 Unknown Rx gabapentin 100 mg capsule 100 mg PO BID 08/05/24 10/15/24 Unknown History magnesium 250 mg tablet 250 mg PO DAILY 08/05/24 10/15/24 08/10/24 History rollaid walker with seat #1 ea 08/05/24 10/17/24 Unknown Rx potassium chloride 20 mEq 40 meq (2 x 20 mEq) PO BID #120 08/15/24 10/15/24 Unknown Rx tablet,extended release tabs bumetanide 1 mg tablet 1 mg PO BID #100 tabs 09/01/24 10/15/24 Unknown Rx ezetimibe 10 mg tablet 10 mg PO DAILY #90 tabs 09/01/24 10/15/24 Unknown Rx irbesartan 150 mg tablet See Rx Instructions .Route 09/02/24 10/15/24 Unknown Rx .COMPLEX #90 tabs omeprazole 40 mg capsule,delayed 40 mg PO BID #120 caps 10/15/24 10/15/24 Unknown Rx release ondansetron 4 mg disintegrating 4 mg PO Q6H PRN nausea and 10/15/24 10/15/24 Unknown Rx tablet vomiting #60 tabs Allergies Allergy/AdvReac Type Severity Reaction Status Date / Time sitagliptin (From Januvia) Allergy Unknown Unknown Verified 10/15/24 14:55 empagliflozin (From Allergy Unknown Verified 10/15/24 14:55 Jardiance) PFSH Acute PFSH: Medical History CKD (chronic kidney disease), stage IV CKD stage 3b, GFR 30-44 ml/min Diabetic nephropathy Squamous cell carcinoma of skin Nephrolithiasis History of ovarian cancer Chronic back pain Stage 3a chronic kidney disease (CKD) HLD (hyperlipidemia) Insulin dependent diabetes mellitus Essential hypertension Obesity Surgical History History of carpal tunnel release History of decompression of ulnar nerve H/O: hysterectomy Social History (Updated 10/17/24 @ 07:52 by Derian Hsieh MD) Smoking and tobacco/nicotine status: never used tobacco/nicotine Second hand smoke exposure: No Alcohol intake: current Alcohol intake frequency: few times a month Substance/Drug Use: never Additional social history: She wants full code as discussed with Tenzin and myself 10/17/2024 by Derian Hsieh MD Caregiver/support person: No Lives independently: No Household members: spouse Marital status: Number of children: 1 service: No Current occupational status: unemployed Current occupational exposures/hazards: No 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 Vital signs noted. She is oxygenating well with nasal cannula oxygen. HEENT is normocephalic atraumatic. Neck is supple. Lungs crackles bilaterally. Heart positive S1-S2 Abdomen soft positive bowel sounds extremities of bilateral edema. Neuro awake alert oriented x 3. Patient states that she has sensory neuropathy in both legs. Data 10/17/24 02:40 10/17/24 02:40 A&P Assessment and plan (1) CKD (chronic kidney disease), stage IV: 69-year-old lady 1. Cardiac patient's last echo was 2 years ago with normal EF of 56% that time she had grade 2 out of 4 diastolic dysfunction with moderately elevated filling pressures. Patient presents now with A-fib and pulm overload. Will consider repeat cardiac echo. 2. Renal patient's creatinine was 1 in April 2023. Her creatinine went up to 1.3 mg/dL in July 2023 by November 2023 creatinine went to 1.7 improved again to 1.3. She is here creatinines been approximately 2 mg/dL in July 2024 and in August her creatinine went up to 2.5 mg/dL and currently she has a creatinine of 2.7 mg/dL. The patient follows with [facility] Dr. Bey and per patient she was told that she has diabetic nephropathy. Patient's urinalysis had 4+ protein. 1+ glucose. She has 1+ urine blood. She has 3-5 RBCs in the past now 6-10. She also has significant leukocytosis. With trace bacteria. Will send basic serologies. Patient's urine protein creatinine ratio 1 year ago was 2.93 and in July went up to 19. 83. This can be diabetes or concern for other nephrotic syndrome. -check lipids -her albumin is 3.3 3. leukocytosis- evaluate for an infection 4. pth was 103 in july check vitd and pth recommened give furosemide/ bumex and monitor Seen and examined with the nurse using audiovisual equipment. The patient consents to telehealth. Plan Diurese patient, will monitor. PDMP PDMP Reviewed: Not Reviewed Consult Attestations Medical Necessity Statement: Volume overload heart failure and progressive renal insufficiency atrial fibrillation Time Spent in Patient Care: Greater than 35 minutes (>than 50% of time spent in counselling and/or direct pt care on unit). Coding Level of Care Code Acute Code for Chg Fwd Diagnoses CKD (chronic kidney disease), stage IV N18.4
--- NOTE | 2024-10-17 08:11 | US_ITS ---
WS: [id number] RENAL ULTRASOUND HISTORY: heriberto COMPARISON: 11/22/2023 TECHNIQUE: 2-D and color Doppler imaging of the kidney submitted. Right kidney: 11.0 cm x 5.3 cm x 6.1 cm. Cortex: 1.5 cm Normal echogenicity with no hydronephrosis or mass. Previously described RIGHT renal cyst is not identified today. Left kidney: 11.7 cm x 6.0 cm x 6.9 cm. Cortex: 1.7 cm Normal echogenicity with no hydronephrosis or mass. Aorta: Normal. Urinary Bladder: Normal distention. US/US renal BI* [id number] IMPRESSION: Normal renal ultrasound.
--- NOTE | 2024-10-17 09:02 | USCV_ITS ---
Sandra Lemus Age: 69 Gender: F : 1955 Exam Date: 10/17/2024 13:48 Ordering Phys: Derian Hsieh MD Technologist: [place] [facility] [place]: pedal edmea PROCEDURES: The following venous structures were evaluated: common femoral vein, profunda vein, proximal portion of the greater saphenous vein, superficial femoral vein, and the popliteal vein. In addition, the posterior tibial and peroneal trunk were evaluated. FINDINGS: Normal 2-D Doppler and augmentation and compressibility throughout the lower extremity venous structures. Additional imaging through the proximal calf veins also reveals no thrombus. Limited evaluation of the greater saphenous vein is patent with no thrombus. CONCLUSIONS No DVT right lower extremity. Dr. Regina Otoole DO (Electronically Signed) Final Date: 17 October 2024 14:49 S
[2024-10-17 09:13] LABS: Troponin 5 6HR 62.07 ng/L (0-10); Troponin 5 6HR Delta 2.07 ng/L (0-12)
[2024-10-17 09:35] LABS: Uric Acid 6.7 mg/dL (2.4-5.7)
[2024-10-17 09:55] LABS: Hepatitis B Surface Antigen Non-Reactive (Nonreactive)
--- NOTE | 2024-10-17 10:44 | USCV_ITS ---
Sandra Lemus Age: 69 Gender: F : 1955 Exam Date: 10/17/2024 13:21 Ordering Phys: Sharon Ruiz MD Technologist: Exam Location: [facility] [place] Indication: cp sob BP: 152 / 71 HR: 108 Rhythm: Sinus Technical Quality: Adequate MEASUREMENTS (Male / Female) Normal Values 2D ECHO LV Diastolic Diameter PLAX 4.7 cm 4.2 - 5.9 / 3.9 - 5.3 cm IVS Diastolic Thickness 1.3 cm 0.6 - 1.0 / 0.6 - 0.9 cm IVS Systolic Thickness 1.6 cm LVPW Diastolic Thickness 1.3 cm 0.6 - 1.0 / 0.6 - 0.9 cm LVPW Systolic Thickness 1.6 cm LVOT Diameter 2.1 cm LV Ejection Fraction 2D Teich 49.4 % LV Ejection Fraction MOD 4C 47.6 % LV Ejection Fraction MOD 2C 65.9 % LV Ejection Fraction 2C AL 65.1 % LA Diameter 3.6 cm RA Systolic Volume 4C AL 58.4 ml RA Systolic Volume 4C MOD 56.6 ml Aorta at Sinotubular Diameter 2.8 cm IVC Diameter 1.6 cm M-MODE LA Ao Ratio MM 1.3 AV Cusp Separation MM 2.0 cm DOPPLER AV Peak Velocity 134.3 cm/s AV Area Cont Eq vti 2.0 cm squared AV Area Cont Eq pk 1.6 cm squared MV Peak Velocity 129.0 cm/s MV Area PHT 4.3 cm squared Mitral E to A Ratio 1.6 TR Peak Velocity 168.0 cm/s TR Peak Gradient 11.3 mmHg TV Peak E Velocity 91.0 cm/s PV Peak Velocity 107.0 cm/s FINDINGS Left Ventricle Left ventricle is normal in size. LV systolic function is mildly reduced with EF of 45-50%. Mild global hypokinesis. Right Ventricle Normal in size and function Right Atrium Normal in size Left Atrium Normal in size Mitral Valve Mitral valve is thickened. Mild mitral regurgitation. Aortic Valve Aortic valve is thickened. No significant stenosis or regurgitation. Tricuspid Valve Insufficient TR jet to evaluate RVSP. Pulmonic Valve Trace pulmonic regurgitation. Pericardium Normal Aorta Normal in size IVC Appears to be normal CONCLUSIONS LV systolic function is mildly reduced with EF of 45-50% Mild mitral regurgitation Trace pulmonic regurgitation Compared to prior echocardiogram from 2023, LV systolic function has decreased and is mildly reduced now. Jeevan Stinson MD (Electronically Signed) Final Date: 17 October 2024 17:33 S
--- NOTE | 2024-10-17 13:59 | PC.NURSE ---
this nurse took over pt care at 1015 10/17/24.
--- NOTE | 2024-10-17 14:31 | PM.MISC ---
Miscellaneous Note Purpose of Documentation: Overnight labs and H&P reviewed. Discontinue losartan for now given MANUELITO on CKD. Start amlodipine 10 mg p.o. daily. Continue diuresis with Bumex 1 mg IV every 12 hours. Patient states she has a feeling of incomplete evacuation. Will place Vazquez catheter to enable accurate and take output charting and also to bypass any potential urinary retention. Add insulin sliding scale. Leukocytosis noted at 17,000. Currently no localizing signs or symptoms of infection. UA without leukocyte esterase or nitrate, mildly elevated WBCs. Denies any dysuria at this time. Pending urine culture. Check blood culture. Chest x-ray with bilateral infiltrates appearing more likely to be pulmonary edema versus ILD. Holding off on antibiotics for now.
--- NOTE | 2024-10-17 16:30 | PC.NURSE ---
Patient is a Jehova's witness- pt stated NO BLOOD Transfusion.
[2024-10-17 18:22] LABS: Coronavirus 229E,HKU1,NL63,OC4 Not Detected (NOT DETECT); Parainfluenza Virus Type 1 Not Detected (NOT DETECT); Parainfluenza Virus Type 2 Not Detected (NOT DETECT); Parainfluenza Virus Type 3 Not Detected (NOT DETECT); Parainfluenza Virus Type 4 Not Detected (NOT DETECT); SARS-COV-2 Not Detected (NOT DETECT)
--- NOTE | 2024-10-17 19:43 | PC.NURSE ---
home med notified to bring her galantamine med bcoz inpt pharmacy don't have it here.
[2024-10-18] VITALS: BP 139/66; PULSE 70; RESP 14; TEMP 36.8; O2SAT 97
[2024-10-18 02:48] LABS: Hematocrit 37.2 % (36-47); Hemoglobin 11.20 g/dL (11.27-16.99); Mean Corpuscular HGB Conc 30.1 g/dL (30-55); Mean Corpuscular Hemoglobin 28.1 pg (27-33); Mean Corpuscular Volume 93.2 fl (85-98); Nucleated Red Blood Cells % 0 %; Platelet Count 227 10^3/cmm (157-399); Red Blood Count 3.99 10^6/uL (3.85-5.65); White Blood Count 12.22 10^3/uL (3.29-11.43)
[2024-10-18 03:13] LABS: Calcium 8.6 mg/dL (8.5-10.5)
[2024-10-18 03:23] LABS: Alanine Aminotransferase 11 U/L (0-33); Albumin Level 2.7 g/dL (3.5-5.2); Alkaline Phosphatase 106 U/L (35-105); Anion Gap 14.6 (5-19); Aspartate Amino Transferase 15 U/L (0-32); Blood Urea Nitrogen 33 mg/dL (8-23); Calcium 8.5 mg/dL (8.5-10.5); Carbon Dioxide 24 mmol/L (22-29); Chloride 108 mmol/L (98-107); Creatinine Clr Calc Pharmacy 21.0132; Globulin 3.3 g/dL (1.3-4.6); Glucose 114 mg/dL (65-115); Magnesium 2.5 mg/dL (1.7-2.3); Osmolality Calculated 302 mOsm/kg (285-295); Potassium 4.6 mmol/L (3.5-5.1); Sodium 142 mmol/L (136-145); Thyroid Stimulating Hormone 1.13 uIU/mL (0.27-4.20); Total Protein 6.0 g/dL (6.6-8.7)
[2024-10-18 04:00] VITALS: BP 143/82; PULSE 72; RESP 21; TEMP 36.8; O2SAT 96
--- NOTE | 2024-10-18 07:09 | PC.NURSE ---
Patient went into Afib, Dr Hsieh was notified. Within 30 minutes patient converted back into SR. Dr Hsieh was nootified and order to not give cardizem 10 mg that was ordered.
[2024-10-18 07:18] LABS: Anti-Double Strand DNA AB <1 IU/mL; PROTEIN, TOTAL 5.7 g/dL (6.1-8.1)
[2024-10-18 08:00] VITALS: BP 138/109; PULSE 101; RESP 16; TEMP 36.9; O2SAT 97
[2024-10-18] MEDS: bumetanide 0.25 mg/mL SDV 4 mL 1 MG IVP (08:06)
--- NOTE | 2024-10-18 08:08 | PM.PN ---
Subjective Subjective: The patient was seen and examined. Patient still feels weak lethargic short of breath and swollen. Poor appetite. Back pain. Using nasal cannula oxygen. Medications: Reviewed: Yes Medication Review Details: Current Medications Acetaminophen (Acetaminophen 325 Mg Tablet) 650 mg PO Q6H PRN PRN Reason: Mild/Mod Pain Or Temp >/= 101 Amlodipine Besylate (Amlodipine 10 Mg Tablet) 10 mg PO DAILY [facility] Last Admin: 10/18/24 08:07 Dose: 10 mg Apixaban (Apixaban 5 Mg Tablet) 2.5 mg PO BID@0900,2100 [facility] Last Admin: 10/18/24 08:07 Dose: 2.5 mg Bumetanide (Bumetanide 0.25 Mg/Ml Sdv 4 Ml) 1 mg IVP Q12H [facility] Last Admin: 10/18/24 08:06 Dose: 1 mg Ezetimibe (Ezetimibe 10 Mg Tablet) 10 mg PO DAILY [facility] Last Admin: 10/18/24 08:07 Dose: 10 mg Gabapentin (Gabapentin 100 Mg Capsule) 100 mg PO BID [facility] Last Admin: 10/18/24 08:07 Dose: 100 mg Glucagon (Glucagon 1 Mg/Ml Kit 1 Ml) 1 mg IM ONCE PRN; Protocol PRN Reason: Adult Acute Hypoglycemia Nursing Prot. Dextrose (D5w) 500 mls @ 0 mls/hr IV ONCE PRN; Protocol PRN Reason: Adult Acute Hypoglycemia Prot Dextrose (D10w) 125 mls @ 750 mls/hr IV PRN PRN; Protocol PRN Reason: Adult Acute Hypoglycemia Nursing Protocol Dextrose (D10w) 250 mls @ 1,000 mls/hr IV PRN PRN; Protocol PRN Reason: Adult Acute Hypoglycemia Nursing Protocol Insulin Human Lispro (Insulin Lispro 100 Unit/1 Ml) 0 unit SUBCUT WM&BEDTIME [facility]; Protocol Last Admin: 10/18/24 07:23 Dose: Not Given Non-Formulary Medication (Galantamine) 4 mg PO BID [facility] Ondansetron HCl (Ondansetron Hcl Odt 4 Mg Tab) 4 mg PO Q6H PRN PRN Reason: NAUSEA AND VOMITING Ondansetron HCl (Ondansetron 2 Mg/Ml Sdv 2 Ml) 4 mg IVP Q8H PRN PRN Reason: vomiting, or N/V if npo Pantoprazole Sodium (Pantoprazole Dr 40 Mg Tablet) 40 mg PO DAILY [facility] Last Admin: 10/18/24 08:07 Dose: 40 mg Vitals/I&O/Wt Last Vital Signs Temp 98.2 F 10/18/24 04:00 Pulse 72 10/18/24 04:00 Resp 21 H 10/18/24 04:00 BP 143/82 10/18/24 04:00 Pulse Ox 96 10/18/24 04:00 O2 Del Method Nasal Cannula 10/18/24 04:00 O2 Flow Rate 3 10/17/24 11:13 10/17/24 10/18/24 10/18/24 22:59 06:59 14:59 Intake Total 200 / 200 50 / 250 Output Total 600 / 600 600 / 1200 Balance -400 / -400 -550 / -950 Weight last 48 hrs Weight 94.347 kg Weight 92.079 kg Weight 88.451 kg Physical Exam Narrative: The patient is lying down in bed. Vital signs noted. She is oxygenating well with nasal cannula oxygen. HEENT is normocephalic atraumatic. Neck is supple. Lungs crackles bilaterally. Heart positive S1-S2 Abdomen soft positive bowel sounds extremities of bilateral edema. Neuro awake alert oriented x 3. Moves all extremities. Urinary Catheter Management: Vazquez: Cath Placed During This Visit: yes Reason for Continuing Indwelling Catheter: Other Urinary Catheter Date of Insertion: 10/17/24 Data 10/18/24 02:24 10/18/24 02:24 Micro: Microbiology 10/17/24 11:29 Blood Culture - Preliminary Blood SPECIMEN COLLECTED 10/17/24 11:29 Blood Culture - Preliminary Blood SPECIMEN COLLECTED A&P Assessment and plan (1) CKD (chronic kidney disease), stage IV: 69-year-old lady 1. Cardiac patient's last echo was 2 years ago with normal EF of 56% that time she had grade 2 out of 4 diastolic dysfunction with moderately elevated filling pressures. Patient presents now with A-fib and pulm overload. Repeat echocardiogram shows EF of 45 to 50% with mild global hypokinesis. 2. Renal patient's creatinine was 1 in April 2023. Her creatinine went up to 1.3 mg/dL in July 2023 by November 2023 creatinine went to 1.7 improved again to 1.3. She is here creatinines been approximately 2 mg/dL in July 2024 and in August her creatinine went up to 2.5 mg/dL and currently she has a creatinine of 2.7 mg/dL. The patient follows with [facility] Dr. Bey and per patient she was told that she has diabetic nephropathy. Patient's urinalysis had 4+ protein. 1+ glucose. She has 1+ urine blood. She has 3-5 RBCs in the past now 6-10. She also has significant leukocytosis. With trace bacteria. Will send basic serologies. Patient's urine protein creatinine ratio 1 year ago was 2.93 and in July went up to 19. 83. This can be diabetes or concern for other nephrotic syndrome. -check lipids -her albumin is 3.3 Renal ultrasound right kidney 11 cm, left kidney 11.7 cm there is normal echogenicity. 3. leukocytosis- evaluate for an infection 4. Venous Doppler no acute DVT in right lower extremity. 5. Blood pressure well-controlled lances leg edema will decrease the dose of amlodipine. 6. pth was 103 in july check vitd and pth 7. Will increase the dose of Bumex and monitor. Seen and examined with the nurse using audiovisual equipment. The patient consents to telehealth. Plan Diurese patient, will monitor. PDMP PDMP Reviewed: Not Reviewed Attestations Medical Necessity Statement*: Edema weakness CKD Time Spent in Patient Care: 16 - 35 minutes (>than 50% of time spent in counselling and/or direct pt care on unit). Coding Level of Care Code Acute Code for Chg Fwd Diagnoses CKD (chronic kidney disease), stage IV N18.4
[2024-10-18] MEDS: NON-FORMULARY MEDICATION (Galantamine 4 mg tablet) 4 EACH PO ×2 (10:38→17:25)
[2024-10-18 10:59] LABS: Calcium 8.5 mg/dL (8.5-10.5)
[2024-10-18 12:00] VITALS: BP 148/99; PULSE 110; RESP 16; TEMP 36.8; O2SAT 97
[2024-10-18] MEDS: bumetanide 0.25 mg/mL SDV 4 mL 0.5 MG IVP (13:31)
[2024-10-18 13:53] LABS: Glucose Urine UA 2+ (Normal); Nitrate Urine Negative (Negative); Specific Gravity, Urine 1.015 (1.005-1.030)
[2024-10-18 14:05] LABS: Urine Random Sodium 85 mmol/L
[2024-10-18 14:09] LABS: UA Slide Review UA Slide Review Perf
[2024-10-18 16:00] VITALS: BP 124/76; PULSE 68; RESP 24; TEMP 36.7; O2SAT 97
--- NOTE | 2024-10-18 17:42 | PM.PN ---
Subjective Subjective: Patient was in A-fib overnight. Started on metoprolol 25 mg p.o. twice daily today following which her heart rate is now at 68/min in sinus rhythm. Medications: Reviewed: Yes Medication Review Details: Current Medications Acetaminophen (Acetaminophen 325 Mg Tablet) 650 mg PO Q6H PRN PRN Reason: Mild/Mod Pain Or Temp >/= 101 Amlodipine Besylate (Amlodipine 10 Mg Tablet) 10 mg PO DAILY [facility] Last Admin: 10/18/24 08:07 Dose: 10 mg Apixaban (Apixaban 5 Mg Tablet) 2.5 mg PO BID@0900,2100 [facility] Last Admin: 10/18/24 08:07 Dose: 2.5 mg Bumetanide (Bumetanide 0.25 Mg/Ml Sdv 4 Ml) 1 mg IVP Q12H [facility] Last Admin: 10/18/24 08:06 Dose: 1 mg Ezetimibe (Ezetimibe 10 Mg Tablet) 10 mg PO DAILY [facility] Last Admin: 10/18/24 08:07 Dose: 10 mg Gabapentin (Gabapentin 100 Mg Capsule) 100 mg PO BID [facility] Last Admin: 10/18/24 08:07 Dose: 100 mg Glucagon (Glucagon 1 Mg/Ml Kit 1 Ml) 1 mg IM ONCE PRN; Protocol PRN Reason: Adult Acute Hypoglycemia Nursing Prot. Dextrose (D5w) 500 mls @ 0 mls/hr IV ONCE PRN; Protocol PRN Reason: Adult Acute Hypoglycemia Prot Dextrose (D10w) 125 mls @ 750 mls/hr IV PRN PRN; Protocol PRN Reason: Adult Acute Hypoglycemia Nursing Protocol Dextrose (D10w) 250 mls @ 1,000 mls/hr IV PRN PRN; Protocol PRN Reason: Adult Acute Hypoglycemia Nursing Protocol Insulin Human Lispro (Insulin Lispro 100 Unit/1 Ml) 0 unit SUBCUT WM&BEDTIME [facility]; Protocol Last Admin: 10/18/24 07:23 Dose: Not Given Non-Formulary Medication (Galantamine) 4 mg PO BID [facility] Ondansetron HCl (Ondansetron Hcl Odt 4 Mg Tab) 4 mg PO Q6H PRN PRN Reason: NAUSEA AND VOMITING Ondansetron HCl (Ondansetron 2 Mg/Ml Sdv 2 Ml) 4 mg IVP Q8H PRN PRN Reason: vomiting, or N/V if npo Pantoprazole Sodium (Pantoprazole Dr 40 Mg Tablet) 40 mg PO DAILY [facility] Last Admin: 10/18/24 08:07 Dose: 40 mg Vitals/I&O/Wt Last Vital Signs Temp 98.1 F 10/18/24 16:00 Pulse 68 10/18/24 16:00 Resp 24 H 10/18/24 16:00 BP 124/76 10/18/24 16:00 Pulse Ox 97 10/18/24 16:00 O2 Del Method Nasal Cannula 10/18/24 16:00 O2 Flow Rate 3 10/18/24 16:00 10/18/24 10/18/24 10/18/24 06:59 14:59 22:59 Intake Total 50 / 250 360 / 360 Output Total 600 / 1200 1300 / 1300 Balance -550 / -950 -940 / -940 Weight last 48 hrs Weight 94.347 kg Weight 92.079 kg Weight 88.451 kg Physical Exam Narrative: General: No acute distress, AO x3 HEENT: PERRLA, pupils bilaterally equal and reactive, pallors not present Chest: Normal vesicular breath sounds, no added sounds, equal good air entry bilaterally CVS: S1-S2 regular, no murmurs, no tachycardia, no gallops, no rubs Abdomen: Soft, nontender, no organomegaly, bowel sounds present Neuro: No focal deficits, no facial deformity, AO x3, power 5/5 in all limbs Urinary Catheter Management: Vazquez: Cath Placed During This Visit: yes Reason for Continuing Indwelling Catheter: Other Urinary Catheter Date of Insertion: 10/17/24 Data 10/18/24 02:24 10/18/24 02:24 Micro: Microbiology 10/17/24 11:29 Blood Culture - Preliminary Blood NEGATIVE TO DATE 10/17/24 11:29 Blood Culture - Preliminary Blood NEGATIVE TO DATE 10/17/24 03:53 Urine Culture - Preliminary Urine,Clean Catch A&P Assessment and plan (1) Paroxysmal atrial fibrillation: Patient is now in sinus rhythm but due to anasarca and kidney disease I am going to have her admitted for diuresis and consultation with Dr. Masterson the insurance claims adjuster who I have already called. (2) CKD (chronic kidney disease): Known proteinuria diabetes hypertension. Cannot exclude sleep apnea (3) Acute exacerbation of CHF (congestive heart failure): We know she has diastolic dysfunction with A-fib and also likely pulmonary hypertension with sleep apnea but that is not diagnosed. I recommended that she follow-up for sleep apnea workup (4) CKD (chronic kidney disease), stage IV: Continue with Dr. Masterson. I continued irbesartan for now (5) Type 2 diabetes mellitus: 1600-calorie ADA weight loss diet and sliding scale insulin. Continue home insulin she is on high-dose degludec at 80 units daily (6) Obesity: Counseled regarding weight loss diet I recommend that she start daily weights calorie counting. She may be accounted for further Ozempic but likely at a lower dose and she needs to have her esophageal stricture evaluated (7) History of esophageal stricture: See above needs EGD possibly dilation Plan October 18, 2024 Patient is continued on iv diuresis due to persisting dyspnea and swelling, Bumex increased to 1.5mg iv every 12 hrs. Metoprolol 25 mg BID started today following which HR is better at 68 this evening. Repeat 12 lead EKG. Trop series mildly elevated without significant delta. Discussed with patient undergoing a stress test once euvolemic prior to discharge, however patient states she is extremely hesitant about this as previously she believes one of her friends during a stress test. Kidney function remaining stable today at 2.8. Urine output 1400 cc so far. Closely monitor renal function, continue diuresis until patient is euvolemic. Oxygen supplementation at 3 L/min today. PDMP PDMP Reviewed: Not Reviewed Attestations Medical Necessity Statement*: Started beta-blockers for A-fib, continued need for IV diuresis. Coding Level of Care Code Acute Code for Chg Fwd Diagnoses Paroxysmal atrial fibrillation I48.0 CKD (chronic kidney disease) N18.9 Acute exacerbation of CHF (congestive heart failure) I50.9 CKD (chronic kidney disease), stage IV N18.4 Type 2 diabetes mellitus E11.9 Obesity E66.9 History of esophageal stricture Z87.19
--- NOTE | 2024-10-18 18:15 | ECG_ITS ---
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 Measurements Intervals [place] Rate: 67 P: 38 NC: 256 QRS: -15 QRSD: 101 T: 130 QT: 417 QTc: 443 Interpretive Statements SINUS RHYTHM WITH FIRST DEGREE AV BLOCK LEFT VENTRICULAR HYPERTROPHY AND ST-T CHANGE [VOLTAGE CRITERIA PLUS ST/T ABNORMALITY] ANTEROSEPTAL MYOCARDIAL INFARCTION , OF INDETERMINATE AGE [40+ ms Q WAVE IN V1-V4] Compared to ECG 10/17/2024 02:15:25 First degree AV block now present Left ventricular hypertrophy now present ST (T wave) deviation now present Atrial fibrillation no longer present Left-axis deviation no longer present Myocardial infarct finding still present Electronically Signed On 10-23-2024 09:38:07 CDT by Jeevan Stinson M.D. [email or web address]
[2024-10-18 19:59] VITALS: BP 133/79; PULSE 67; RESP 17; TEMP 36.7; O2SAT 97
[2024-10-18] MEDS: bumetanide 0.25 mg/mL SDV 10 mL 1.5 MG IVP (20:18)
[2024-10-18] MEDS: MELATONIN 3 MG TABLET PO (22:49)
[2024-10-19] VITALS (8 sets, daily range): BP systolic 150–163; BP diastolic 74–89; PULSE 60–66; RESP 15–20; TEMP 36.3–36.7; O2SAT 92–96
[2024-10-19 03:49] LABS: Hematocrit 37.2 % (36-47); Hemoglobin 11.40 g/dL (11.27-16.99); Mean Corpuscular HGB Conc 30.6 g/dL (30-55); Mean Corpuscular Hemoglobin 28.5 pg (27-33); Mean Corpuscular Volume 93.0 fl (85-98); Nucleated Red Blood Cells % 0 %; Platelet Count 175 10^3/cmm (157-399); Red Blood Count 4.00 10^6/uL (3.85-5.65); White Blood Count 10.97 10^3/uL (3.29-11.43)
[2024-10-19 04:04] LABS: Alanine Aminotransferase 11 U/L (0-33); Albumin Level 2.5 g/dL (3.5-5.2); Alkaline Phosphatase 93 U/L (35-105); Blood Urea Nitrogen 36 mg/dL (8-23); Calcium 8.7 mg/dL (8.5-10.5); Carbon Dioxide 25 mmol/L (22-29); Chloride 106 mmol/L (98-107); Creatinine Clr Calc Pharmacy 18.6308; Globulin 2.7 g/dL (1.3-4.6); Glucose 92 mg/dL (65-115); Magnesium 2.6 mg/dL (1.7-2.3); Osmolality Calculated 300 mOsm/kg (285-295); Sodium 141 mmol/L (136-145); Total Protein 5.2 g/dL (6.6-8.7)
[2024-10-19 04:05] LABS: Anion Gap 14.8 (5-19); Potassium 4.8 mmol/L (3.5-5.1)
[2024-10-19 04:06] LABS: Aspartate Amino Transferase 13 U/L (0-32)
[2024-10-19] MEDS: bumetanide 0.25 mg/mL SDV 10 mL 1.5 MG IVP (08:43)
[2024-10-19] MEDS: NON-FORMULARY MEDICATION (Galantamine 4 mg tablet) 4 EACH PO ×2 (08:43→17:30)
--- NOTE | 2024-10-19 09:20 | PM.PN ---
Subjective Subjective: The patient was seen and examined. Patient has decreased edema decreased complaint for shortness of breath positive back pain no nausea or vomiting no significant diarrhea no headache Medications: Reviewed: Yes Medication Review Details: Current Medications Acetaminophen (Acetaminophen 325 Mg Tablet) 650 mg PO Q6H PRN PRN Reason: Mild/Mod Pain Or Temp >/= 101 Last Admin: 10/19/24 04:44 Dose: 650 mg Amlodipine Besylate (Amlodipine 10 Mg Tablet) 5 mg PO DAILY [facility] Last Admin: 10/19/24 08:42 Dose: 5 mg Apixaban (Apixaban 5 Mg Tablet) 2.5 mg PO BID@0900,2100 [facility] Last Admin: 10/19/24 08:42 Dose: 2.5 mg Bumetanide (Bumetanide 0.25 Mg/Ml Sdv 10 Ml) 1.5 mg IVP Q12H [facility] Last Admin: 10/19/24 08:43 Dose: 1.5 mg Ezetimibe (Ezetimibe 10 Mg Tablet) 10 mg PO DAILY [facility] Last Admin: 10/19/24 08:42 Dose: 10 mg Gabapentin (Gabapentin 100 Mg Capsule) 100 mg PO BID [facility] Last Admin: 10/19/24 08:41 Dose: 100 mg Glucagon (Glucagon 1 Mg/Ml Kit 1 Ml) 1 mg IM ONCE PRN; Protocol PRN Reason: Adult Acute Hypoglycemia Nursing Prot. Dextrose (D5w) 500 mls @ 0 mls/hr IV ONCE PRN; Protocol PRN Reason: Adult Acute Hypoglycemia Prot Dextrose (D10w) 125 mls @ 750 mls/hr IV PRN PRN; Protocol PRN Reason: Adult Acute Hypoglycemia Nursing Protocol Dextrose (D10w) 250 mls @ 1,000 mls/hr IV PRN PRN; Protocol PRN Reason: Adult Acute Hypoglycemia Nursing Protocol Insulin Human Lispro (Insulin Lispro 100 Unit/1 Ml) 0 unit SUBCUT WM&BEDTIME [facility]; Protocol Last Admin: 10/19/24 08:39 Dose: Not Given Melatonin (Melatonin 3 Mg Tablet) 3 mg PO BEDTIME PRN PRN Reason: INSOMNIA Last Admin: 10/18/24 22:49 Dose: 3 mg Metoprolol Tartrate (Metoprolol Tartrate 25 Mg Tablet) 25 mg PO Q12H [facility] Last Admin: 10/19/24 02:17 Dose: 25 mg Non-Formulary Medication (Galantamine) 4 mg PO BID [facility] Last Admin: 10/19/24 08:43 Dose: 4 mg Ondansetron HCl (Ondansetron Hcl Odt 4 Mg Tab) 4 mg PO Q6H PRN PRN Reason: NAUSEA AND VOMITING Ondansetron HCl (Ondansetron 2 Mg/Ml Sdv 2 Ml) 4 mg IVP Q8H PRN PRN Reason: vomiting, or N/V if npo Pantoprazole Sodium (Pantoprazole Dr 40 Mg Tablet) 40 mg PO DAILY [facility] Last Admin: 10/19/24 08:43 Dose: 40 mg Vitals/I&O/Wt Last Vital Signs Temp 97.7 F 10/19/24 08:00 Pulse 60 10/19/24 08:00 Resp 15 10/19/24 08:00 BP 158/83 10/19/24 08:00 Pulse Ox 96 10/19/24 08:00 O2 Del Method Nasal Cannula 10/19/24 08:00 O2 Flow Rate 2 10/19/24 08:00 10/18/24 10/19/24 10/19/24 22:59 06:59 14:59 Intake Total 360 / 720 150 / 870 240 / 240 Output Total 700 / 2000 600 / 2600 Balance -340 / -1280 -450 / -1730 240 / 240 Weight last 48 hrs Weight 93.077 kg Weight 94.347 kg Weight 92.079 kg Physical Exam Narrative: The patient is lying down in bed. Vital signs noted. She is oxygenating well with nasal cannula oxygen. HEENT is normocephalic atraumatic. Neck is supple. Lungs improved air ovement bilaterally. Heart positive S1-S2 Abdomen soft positive bowel sounds extremities- decreased bilateral edema. Neuro awake alert oriented x 3. Moves all extremities. Urinary Catheter Management: Vazquez: Cath Placed During This Visit: yes Reason for Continuing Indwelling Catheter: Accurate Measurement of Urinary Output in Critically Ill Patients Urinary Catheter Date of Insertion: 10/17/24 Data 10/19/24 02:39 10/19/24 02:39 Micro: Microbiology 10/17/24 11:29 Blood Culture - Preliminary Blood NEGATIVE TO DATE 10/17/24 11:29 Blood Culture - Preliminary Blood NEGATIVE TO DATE 10/17/24 03:53 Urine Culture - Preliminary Urine,Clean Catch A&P Assessment and plan (1) CKD (chronic kidney disease), stage IV: 69-year-old lady 1. Cardiac patient's last echo was 2 years ago with normal EF of 56% that time she had grade 2 out of 4 diastolic dysfunction with moderately elevated filling pressures. Patient presents now with A-fib and pulm overload. Repeat echocardiogram shows EF of 45 to 50% with mild global hypokinesis. 2. Renal patient's creatinine was 1 in April 2023. Her creatinine went up to 1.3 mg/dL in July 2023 by November 2023 creatinine went to 1.7 improved again to 1.3. She is here creatinines been approximately 2 mg/dL in July 2024 and in August her creatinine went up to 2.5 mg/dL and she was admiited w/ a creatinine of 2.7 mg/dL. The patient follows with [facility] Dr. Bey and per patient she was told that she has diabetic nephropathy. Patient's urinalysis had 4+ protein. 1+ glucose. She has 1+ urine blood. She has 3-5 RBCs in the past now 6-10. She also has significant leukocytosis. With trace bacteria. Will send basic serologies. Patient's urine protein creatinine ratio 1 year ago was 2.93 and in July went up to 19. 83. This can be diabetes or concern for other nephrotic syndrome. -check lipids -her albumin is 3.3 -cr rising - will dec diuretic dos Renal ultrasound right kidney 11 cm, left kidney 11.7 cm there is normal echogenicity. -serologies are pending 3. leukocytosis- improving 4. Venous Doppler no acute DVT in right lower extremity. 5. Blood pressure -monitor. 6. renal bone mineral metabolism- replace vit d. level is 6 pth 90- repeat in 3 months 7. Will decrease the dose of Bumex and monitor. Seen and examined with the nurse using audiovisual equipment. The patient consents to telehealth. Plan Dec diuretic dose. PDMP PDMP Reviewed: Not Reviewed Attestations Medical Necessity Statement*: per hospitalist, MANUELITO Time Spent in Patient Care: 16 - 35 minutes (>than 50% of time spent in counselling and/or direct pt care on unit). Coding Level of Care Code Acute Code for [facility] Fwd Diagnoses CKD (chronic kidney disease), stage IV N18.4
--- NOTE | 2024-10-19 10:46 | CTR_ITS ---
PROCEDURE INFORMATION: Exam: CT Chest Without Contrast; Diagnostic Exam date and time: 10/19/2024 11:12 AM Age: 69 years old Clinical indication: Dyspnea and other: Dyspnea, persiting dyspnea, assess for effusion, pneumonia TECHNIQUE: Imaging protocol: Diagnostic computed tomography of the chest without contrast. Radiation optimization: All CT scans at this facility use at least one of these dose optimization techniques: automated exposure control; mA and/or kV adjustment per patient size (includes targeted exams where dose is matched to clinical indication); or iterative reconstruction. COMPARISON: CR (CHEST, ) 10/17/2024 2:48 AM RADIATION DOSE METRICS: Total DLP (mGy-cm): 486.61 FINDINGS: Lungs: Bilateral lower lobe and lingular consolidation is seen with air bronchograms. Minor atelectasis in the right middle lobe. Focal ground-glass opacity in the right upper lobe measures 1 cm. Minimal left upper lobe ground-glass opacity anteriorly. 4 mm nodule in the right upper lobe. 4 mm left upper lobe nodule. Pleural spaces: Moderate bilateral pleural effusions are seen layering posteriorly. Heart: Unremarkable. No cardiomegaly. No pericardial effusion. Lymph nodes: Right paratracheal node measures 0.9 cm in short axis with fatty hilum. 1 cm AP window node with fatty hilum. Vasculature: Unremarkable. No aortic aneurysm. Gallbladder and biliary ducts: Status post cholecystectomy. Bones/joints: Unremarkable. No acute fracture. Soft tissues: Unremarkable. CT/CT chest wo con [id number] IMPRESSION: 1. Bilateral pulmonary consolidation and moderate bilateral pleural effusions. Findings may represent pneumonia. 2. Nonspecific ground-glass opacities and 4 mm bilateral upper lobe pulmonary nodules. For patients at low risk (minimal or absent history of smoking and of other known risk factors), no routine follow-up is indicated. For patients at high risk (history of smoking or of other known risk factors), consider optional CT Chest at 12 months. (Reference: Last) References: Last Hearn et al. Guidelines for Management of Incidental Pulmonary Nodules Detected on CT Images: From the Fleischner Society 2017. Radiology. 2017;284(1):228-243. 3. Borderline adenopathy in the mediastinum which may be reactive.
--- NOTE | 2024-10-19 11:45 | PM.PN ---
Subjective Subjective: Creatinine trending up to 3.2 today. Urine output 1300 cc. Net -2.4 L since admission. Patient states she still continues to feel short of breath. Medications: Reviewed: Yes Medication Review Details: Current Medications Acetaminophen (Acetaminophen 325 Mg Tablet) 650 mg PO Q6H PRN PRN Reason: Mild/Mod Pain Or Temp >/= 101 Last Admin: 10/19/24 04:44 Dose: 650 mg Amlodipine Besylate (Amlodipine 10 Mg Tablet) 5 mg PO DAILY [facility] Last Admin: 10/19/24 08:42 Dose: 5 mg Apixaban (Apixaban 5 Mg Tablet) 2.5 mg PO BID@0900,2100 [facility] Last Admin: 10/19/24 08:42 Dose: 2.5 mg Bumetanide (Bumetanide 0.25 Mg/Ml Sdv 10 Ml) 1.5 mg IVP Q12H [facility] Last Admin: 10/19/24 08:43 Dose: 1.5 mg Ezetimibe (Ezetimibe 10 Mg Tablet) 10 mg PO DAILY [facility] Last Admin: 10/19/24 08:42 Dose: 10 mg Gabapentin (Gabapentin 100 Mg Capsule) 100 mg PO BID [facility] Last Admin: 10/19/24 08:41 Dose: 100 mg Glucagon (Glucagon 1 Mg/Ml Kit 1 Ml) 1 mg IM ONCE PRN; Protocol PRN Reason: Adult Acute Hypoglycemia Nursing Prot. Dextrose (D5w) 500 mls @ 0 mls/hr IV ONCE PRN; Protocol PRN Reason: Adult Acute Hypoglycemia Prot Dextrose (D10w) 125 mls @ 750 mls/hr IV PRN PRN; Protocol PRN Reason: Adult Acute Hypoglycemia Nursing Protocol Dextrose (D10w) 250 mls @ 1,000 mls/hr IV PRN PRN; Protocol PRN Reason: Adult Acute Hypoglycemia Nursing Protocol Insulin Human Lispro (Insulin Lispro 100 Unit/1 Ml) 0 unit SUBCUT WM&BEDTIME [facility]; Protocol Last Admin: 10/19/24 08:39 Dose: Not Given Melatonin (Melatonin 3 Mg Tablet) 3 mg PO BEDTIME PRN PRN Reason: INSOMNIA Last Admin: 10/18/24 22:49 Dose: 3 mg Metoprolol Tartrate (Metoprolol Tartrate 25 Mg Tablet) 25 mg PO Q12H [facility] Last Admin: 10/19/24 02:17 Dose: 25 mg Non-Formulary Medication (Galantamine) 4 mg PO BID [facility] Last Admin: 10/19/24 08:43 Dose: 4 mg Ondansetron HCl (Ondansetron Hcl Odt 4 Mg Tab) 4 mg PO Q6H PRN PRN Reason: NAUSEA AND VOMITING Ondansetron HCl (Ondansetron 2 Mg/Ml Sdv 2 Ml) 4 mg IVP Q8H PRN PRN Reason: vomiting, or N/V if npo Pantoprazole Sodium (Pantoprazole Dr 40 Mg Tablet) 40 mg PO DAILY [facility] Last Admin: 10/19/24 08:43 Dose: 40 mg Vitals/I&O/Wt Last Vital Signs Temp 97.7 F 10/19/24 08:00 Pulse 60 10/19/24 08:00 Resp 15 10/19/24 08:00 BP 158/83 10/19/24 08:00 Pulse Ox 96 10/19/24 08:00 O2 Del Method Nasal Cannula 10/19/24 08:00 O2 Flow Rate 2 10/19/24 08:00 10/18/24 10/19/24 10/19/24 22:59 06:59 14:59 Intake Total 360 / 720 150 / 870 240 / 240 Output Total 700 / 2000 600 / 2600 Balance -340 / -1280 -450 / -1730 240 / 240 Weight last 48 hrs Weight 93.077 kg Weight 94.347 kg Weight 92.079 kg Physical Exam Narrative: General: No acute distress, AO x3 HEENT: PERRLA, pupils bilaterally equal and reactive, pallors not present Chest: Normal vesicular breath sounds, no added sounds, equal good air entry bilaterally CVS: S1-S2 regular, no murmurs, no tachycardia, no gallops, no rubs Abdomen: Soft, nontender, no organomegaly, bowel sounds present Neuro: No focal deficits, no facial deformity, AO x3, power 5/5 in all limbs Urinary Catheter Management: Vazquez: Cath Placed During This Visit: yes Reason for Continuing Indwelling Catheter: Accurate Measurement of Urinary Output in Critically Ill Patients Urinary Catheter Date of Insertion: 10/17/24 Data 10/19/24 02:39 10/19/24 02:39 Micro: Microbiology 10/17/24 03:53 Urine Culture - Final Urine,Clean Catch 10/17/24 11:29 Blood Culture - Preliminary Blood NEGATIVE TO DATE 10/17/24 11:29 Blood Culture - Preliminary Blood NEGATIVE TO DATE A&P Assessment and plan (1) Paroxysmal atrial fibrillation: Patient is now in sinus rhythm but due to anasarca and kidney disease I am going to have her admitted for diuresis and consultation with Dr. Masterson the junior automation engineer who I have already called. (2) CKD (chronic kidney disease): Known proteinuria diabetes hypertension. Cannot exclude sleep apnea (3) Acute exacerbation of CHF (congestive heart failure): We know she has diastolic dysfunction with A-fib and also likely pulmonary hypertension with sleep apnea but that is not diagnosed. I recommended that she follow-up for sleep apnea workup (4) CKD (chronic kidney disease), stage IV: Continue with Dr. Masterson. I continued irbesartan for now (5) Type 2 diabetes mellitus: 1600-calorie ADA weight loss diet and sliding scale insulin. Continue home insulin she is on high-dose degludec at 80 units daily (6) Obesity: Counseled regarding weight loss diet I recommend that she start daily weights calorie counting. She may be accounted for further Ozempic but likely at a lower dose and she needs to have her esophageal stricture evaluated (7) History of esophageal stricture: See above needs EGD possibly dilation Plan October 18, 2024 Patient is continued on iv diuresis due to persisting dyspnea and swelling, Bumex increased to 1.5mg iv every 12 hrs. Metoprolol 25 mg BID started today following which HR is better at 68 this evening. Repeat 12 lead EKG. Trop series mildly elevated without significant delta. Discussed with patient undergoing a stress test once euvolemic prior to discharge, however patient states she is extremely hesitant about this as previously she believes one of her friends during a stress test. Kidney function remaining stable today at 2.8. Urine output 1400 cc so far. Closely monitor renal function, continue diuresis until patient is euvolemic. Oxygen supplementation at 3 L/min today. October 19, 2024 Patient continues to be on Bumex, yesterday dose was increased to 1.5 mg IV every 12 hours, however creatinine today has trended up to 3.2. Urine output 1300 cc last 24 hours. Will reduce dose of Bumex to 0.5 mg IV every 12 hours today. Appreciate nephrology recommendations. Patient's persistent shortness of breath in spite of her diuresis may be multifactorial related to pulmonary edema, but also contributed by her pleural effusion. Per personal review of images patient appears to have left-sided pleural effusion. Will obtain CT of the chest to further assess. May need thoracentesis for symptom relief in case of moderate to large effusion. Leukocytosis has resolved today without any directed antibiotics, this makes pneumonia less likely, however CT chest will be further able to assess for this possibility as well. Check D-dimer to screen for PE. If positive to proceed with VQ scan. Dose of Eliquis would need to be increased from 2.5 twice daily to 5 mg twice daily in case patient has a DVT. Lower extremity Doppler was previously negative. Additionally patient's echocardiogram notes a dropped ejection fraction to 45 to 50% with mild global hypokinesia. Potentially may have anginal symptoms, however her symptoms are persistent regardless of any exertion and while laying in bed therefore angina as a source of her dyspnea is considered less likely at this time. Patient takes as needed albuterol inhaler at home. Will add albuterol inhalation for hospital use additionally and assess for improvement. PDMP PDMP Reviewed: Not Reviewed Attestations Medical Necessity Statement*: CT chest today, may need thoracentesis for pleural effusion, holding Eliquis today for this reason, reduce dose of diuresis, closely monitor kidney Coding Level of Care Code Acute Code for [facility] Fwd Diagnoses Paroxysmal atrial fibrillation I48.0 CKD (chronic kidney disease) N18.9 Acute exacerbation of CHF (congestive heart failure) I50.9 CKD (chronic kidney disease), stage IV N18.4 Type 2 diabetes mellitus E11.9 Obesity E66.9 History of esophageal stricture Z87.19
[2024-10-19] MEDS: cefTRIAXone 1,000 mg SDV 1000 MG IVP (18:22)
[2024-10-19] MEDS: bumetanide 0.25 mg/mL SDV 4 mL 0.5 MG IVP (20:07)
[2024-10-20] VITALS (12 sets, daily range): BP systolic 148–164; BP diastolic 73–101; PULSE 63–70; RESP 12–22; TEMP 36.6–36.8; O2SAT 90–97
[2024-10-20 04:32] LABS: Hematocrit 39.9 % (36-47); Hemoglobin 12.20 g/dL (11.27-16.99); Mean Corpuscular HGB Conc 30.6 g/dL (30-55); Mean Corpuscular Hemoglobin 27.7 pg (27-33); Mean Corpuscular Volume 90.5 fl (85-98); Nucleated Red Blood Cells % 0 %; Platelet Count 300 10^3/cmm (157-399); Red Blood Count 4.41 10^6/uL (3.85-5.65); White Blood Count 10.36 10^3/uL (3.29-11.43)
[2024-10-20 04:48] LABS: Alanine Aminotransferase 6 U/L (0-33); Albumin Level 2.5 g/dL (3.5-5.2); Alkaline Phosphatase 98 U/L (35-105); Anion Gap 14.7 (5-19); Aspartate Amino Transferase 14 U/L (0-32); Blood Urea Nitrogen 38 mg/dL (8-23); Calcium 8.8 mg/dL (8.5-10.5); Carbon Dioxide 26 mmol/L (22-29); Chloride 105 mmol/L (98-107); Creatinine Clr Calc Pharmacy 18.4940; Globulin 3.5 g/dL (1.3-4.6); Glucose 125 mg/dL (65-115); Magnesium 2.4 mg/dL (1.7-2.3); Osmolality Calculated 303 mOsm/kg (285-295); Potassium 4.7 mmol/L (3.5-5.1); Sodium 141 mmol/L (136-145); Total Protein 6.0 g/dL (6.6-8.7)
--- NOTE | 2024-10-20 07:27 | XR_ITS ---
WS: [id number] XR chest 1V portable [id number] REASON FOR EXAM: per radiology, post vq FINDINGS: Compared to the previous examination 10/17/2024. Continued dense opacity in the left lower hemithorax, combination of atelectasis and pleural effusion. Atelectasis in the right lower lung with right pleural effusion. The effusions appear stable. There has been partial resolution of the previous interstitial and groundglass lung opacities in both lower lungs. Central pulmonary veins remain prominent. The heart is enlarged. XR/XR chest 1V portable [id number] IMPRESSION: Bilateral pleural effusions and atelectasis with resolving findings of congesti ve heart failure.
--- NOTE | 2024-10-20 07:28 | PC.NURSE ---
per radiology, portable chest xray ordered post lung scan.
[2024-10-20] MEDS: bumetanide 0.25 mg/mL SDV 4 mL 0.5 MG IVP (07:58)
[2024-10-20] MEDS: NON-FORMULARY MEDICATION (Galantamine 4 mg tablet) 4 EACH PO ×2 (08:01→17:21)
--- NOTE | 2024-10-20 09:35 | P.PN_ITS ---
Subjective 2 Subjective: The patient complains of chronic shortness of breath with minimal activity. She is short of breath talking to me. She says her edema is better she lies sitting up in bed. She does not have nausea vomiting itching cramps or diarrhea. No chest pain. Medications: Reviewed: Yes Medication Review Details: Current Medications Acetaminophen (Acetaminophen 325 Mg Tablet) 650 mg PO Q6H PRN PRN Reason: Mild/Mod Pain Or Temp >/= 101 Last Admin: 10/19/24 04:44 Dose: 650 mg Albuterol/Ipratropium (Ipratropium-Albuterol 3 Ml Neb) 3 ml INHALATION Q6H.RESP DHRUV Last Admin: 10/20/24 07:37 Dose: Not Given Amlodipine Besylate (Amlodipine 10 Mg Tablet) 5 mg PO DAILY [facility] Last Admin: 10/20/24 07:59 Dose: 5 mg Apixaban (Apixaban 5 Mg Tablet) 2.5 mg PO BID@0900,2100 [facility] On Hold: 10/19/24 11:50 Last Admin: 10/19/24 08:42 Dose: 2.5 mg Bumetanide (Bumetanide 0.25 Mg/Ml Sdv 4 Ml) 0.5 mg IVP Q12H [facility]UV Last Admin: 10/20/24 07:58 Dose: 0.5 mg Ceftriaxone Sodium (Ceftriaxone 1,000 Mg Sdv) 1,000 mg IVP Q24H [facility]; Protocol Last Admin: 10/19/24 18:22 Dose: 1,000 mg Ezetimibe (Ezetimibe 10 Mg Tablet) 10 mg PO DAILY [facility] Last Admin: 10/20/24 07:59 Dose: 10 mg Ergocalciferol (Ergocalciferol (Vitamin D2) 50,000 Unit Capsule) 50,000 unit PO Q7D D[facility]UV Last Admin: 10/19/24 10:38 Dose: 50,000 unit Gabapentin (Gabapentin 100 Mg Capsule) 100 mg PO BID [facility]UV Last Admin: 10/20/24 07:59 Dose: 100 mg Glucagon (Glucagon 1 Mg/Ml Kit 1 Ml) 1 mg IM ONCE PRN; Protocol PRN Reason: Adult Acute Hypoglycemia Nursing Prot. Dextrose (D5w) 500 mls @ 0 mls/hr IV ONCE PRN; Protocol PRN Reason: Adult Acute Hypoglycemia Prot Dextrose (D10w) 125 mls @ 750 mls/hr IV PRN PRN; Protocol PRN Reason: Adult Acute Hypoglycemia Nursing Protocol Dextrose (D10w) 250 mls @ 1,000 mls/hr IV PRN PRN; Protocol PRN Reason: Adult Acute Hypoglycemia Nursing Protocol Insulin Human Lispro (Insulin Lispro 100 Unit/1 Ml) 0 unit SUBCUT WM&BEDTIME [facility]UV; Protocol Last Admin: 10/20/24 07:26 Dose: Not Given Melatonin (Melatonin 3 Mg Tablet) 3 mg PO BEDTIME PRN PRN Reason: INSOMNIA Last Admin: 10/18/24 22:49 Dose: 3 mg Metoprolol Tartrate (Metoprolol Tartrate 25 Mg Tablet) 25 mg PO Q12H [facility] Last Admin: 10/20/24 02:16 Dose: Not Given Non-Formulary Medication (Galantamine) 4 mg PO BID [facility] Last Admin: 10/20/24 08:01 Dose: 4 mg Ondansetron HCl (Ondansetron Hcl Odt 4 Mg Tab) 4 mg PO Q6H PRN PRN Reason: NAUSEA AND VOMITING Ondansetron HCl (Ondansetron 2 Mg/Ml Sdv 2 Ml) 4 mg IVP Q8H PRN PRN Reason: vomiting, or N/V if npo Pantoprazole Sodium (Pantoprazole Dr 40 Mg Tablet) 40 mg PO DAILY [facility] Last Admin: 10/20/24 07:59 Dose: 40 mg Vitals/I&O/Wt Last Vital Signs Temp 98.2 F 10/20/24 07:36 Pulse 64 10/20/24 07:37 Resp 16 10/20/24 07:37 BP 163/101 10/20/24 07:36 Pulse Ox 90 10/20/24 07:37 O2 Del Method Room Air 10/20/24 07:37 O2 Flow Rate 2 10/20/24 02:43 10/19/24 10/20/24 10/20/24 22:59 06:59 14:59 Intake Total 240 / 720 240 / 240 Output Total 1650 / 1650 500 / 2150 Balance -1410 / -930 -500 / -1430 240 / 240 Weight last 48 hrs Weight 92.442 kg Weight 92.442 kg Weight 93.077 kg Physical Exam 2 Narrative: The patient is sitting up in bed. Vital signs noted. She requires nasal cannula oxygen. HEENT is normocephalic atraumatic. Neck is supple. Lungs -lower monte dull and crackles bilaterally. Heart positive S1-S2 Abdomen soft positive bowel sounds extremities- decreased bilateral edema. Neuro awake alert oriented x 3. Moves all extremities. Urinary Catheter Management: Vazquez: Cath Placed During This Visit: yes Reason for Continuing Indwelling Catheter: Accurate Measurement of Urinary Output in Critically Ill Patients Urinary Catheter Date of Insertion: 10/17/24 Data 10/20/24 03:17 10/20/24 03:17 Micro: Microbiology 10/18/24 13:41 Urine Culture - Preliminary Urine,Clean Catch 10/17/24 03:53 Urine Culture - Final Urine,Clean Catch A&P Assessment and plan (1) CKD (chronic kidney disease), stage IV: 69-year-old lady 1. Cardiac patient's last echo was 2 years ago with normal EF of 56% that time she had grade 2 out of 4 diastolic dysfunction with moderately elevated filling pressures. Patient presents now with A-fib and pulm overload. Repeat echocardiogram shows EF of 45 to 50% with mild global hypokinesis. 2. Renal patient's creatinine was 1 in April 2023. Her creatinine went up to 1.3 mg/dL in July 2023 by November 2023 creatinine went to 1.7 improved again to 1.3. She is here creatinines been approximately 2 mg/dL in July 2024 and in August her creatinine went up to 2.5 mg/dL and she was admiited w/ a creatinine of 2.7 mg/dL. The patient follows with [facility] Dr. Bey and per patient she was told that she has diabetic nephropathy. Patient's urinalysis had 4+ protein. 1+ glucose. She has 1+ urine blood. She has 3-5 RBCs in the past now 6-10. She also has significant leukocytosis. With trace bacteria. Will send basic serologies. Patient's urine protein creatinine ratio 1 year ago was 2.93 and in July went up to 19. 83. This can be diabetes or concern for other nephrotic syndrome. -check lipids -her albumin is 3.3 -cr stablized at 3.2 mg/dl for dose diuretics. Renal ultrasound right kidney 11 cm, left kidney 11.7 cm there is normal echogenicity. -serologies are pending 3. leukocytosis- improving 4. Venous Doppler no acute DVT in right lower extremity. 5. Blood pressure -monitor. 6. renal bone mineral metabolism- replace vit d. level is 6 pth 90- repeat in 3 months 7. Patient is very short of breath. She had a VQ scan with intermediate probability for pulmonary embolus. Unfortunately patient is very high risk for acute kidney injury with any contrast studies. Agree with anticoagulating. Before proceeding for contrast study would speak with radiology or surgery to see if they would do a thrombectomy if not we will try to avoid iodine contrast. As she is short of breath will increase Bumex dose. Seen and examined with the nurse using audiovisual equipment. The patient consents to telehealth. Plan Anticoagulation and diuretics. PDMP PDMP Reviewed: Not Reviewed Attestations 2 Medical Necessity Statement*: Acute kidney injury and shortness of breath. Time Spent in Patient Care: 16 - 35 minutes (>than 50% of time sp ent in counselling and/or direct pt care on unit) . Coding Level of Care Code Acute Code for [facility] Diagnoses CKD (chronic kidney disease), stage IV N18.4
[2024-10-20 10:14] LABS: Uric Acid 7.0 mg/dL (2.4-5.7)
[2024-10-20 11:05] LABS: INR 0.94 (0.8-1.2); Prothrombin Time 13.20 SECONDS (12.1-14.9)
[2024-10-20] MEDS: bumetanide 0.25 mg/mL SDV 4 mL 1 MG IVP ×2 (11:30→21:15)
--- NOTE | 2024-10-20 11:40 | PC.SOCIAL ---
IMM Update pg 2 of IMM updated and reviewed w/ patient. Copy provided and copy dated, initialed and placed in chart.
--- NOTE | 2024-10-20 11:50 | US_ITS ---
WS: [id number] ULTRASOUND-GUIDED THORACENTESIS CLINICAL INFORMATION: pleural effusion PROCEDURE: Informed consent: The risks, benefits, and alternatives of the procedure were discussed with the patient. Verbal and written consent was obtained. Timeout: A timeout was performed to confirm the correct patient, procedure, and site. Site: RIGHT chest Preparation: A suitable skin site was identified. The patient was prepped and draped in usual sterile fashion. Lidocaine 1% was used for local anesthesia. Catheter: 4 Q[place]ari One-Step catheter. Fluid Volume: 1000 ml Color: Clear yellow Complications: None. / thoracentesis [id number] IMPRESSION: 1. Uncomplicated ultrasound-guided RIGHT thoracentesis with 1000 cc drained. 2. Portable radiograph is pending
--- NOTE | 2024-10-20 13:08 | P.PN_ITS ---
Subjective 2 Subjective: continues to report sob on exertion sitting up in bed appearing comfortable at rest returned from VQ scan this morning plan for thoracentesis today Vitals/I&O/Wt Last Vital Signs Temp 98.0 F 10/20/24 11:36 Pulse 66 10/20/24 11:36 Resp 15 10/20/24 11:36 BP 164/79 10/20/24 11:36 Pulse Ox 97 10/20/24 11:36 O2 Del Method Room Air 10/20/24 07:37 O2 Flow Rate 2 10/20/24 02:43 10/19/24 10/20/24 10/20/24 22:59 06:59 14:59 Intake Total 240 / 720 480 / 480 Output Total 1650 / 1650 500 / 2150 Balance -1410 / -930 -500 / -1430 480 / 480 Weight last 48 hrs Weight 92.442 kg Weight 92.442 kg Weight 93.077 kg Physical Exam 2 Narrative: General: No acute distress, AO x3 HEENT: PERRLA, pupils bilaterally equal and reactive, pallors not present Chest: Normal vesicular breath sounds, no added sounds, equal good air entry bilaterally CVS: S1-S2 regular, no murmurs, no tachycardia, no gallops, no rubs Abdomen: Soft, nontender, bowel sounds present Neuro: No focal deficits, no facial deformity, AO x3, Urinary Catheter Management: Vazquez: Cath Placed During This Visit: yes Reason for Continuing Indwelling Catheter: Accurate Measurement of Urinary Output in Critically Ill Patients Urinary Catheter Date of Insertion: 10/17/24 Data 10/20/24 03:17 10/20/24 03:17 Micro: Microbiology 10/18/24 13:41 Urine Culture - Final Urine,Clean Catch 10/17/24 03:53 Urine Culture - Final Urine,Clean Catch A&P Assessment and plan (1) Paroxysmal atrial fibrillation: Patient is now in sinus rhythm but due to anasarca and kidney disease I am going to have her admitted for diuresis and consultation with Dr. Masterson the valve assembler who I have already called. (2) CKD (chronic kidney disease): Known proteinuria diabetes hypertension. Cannot exclude sleep apnea (3) Acute exacerbation of CHF (congestive heart failure): We know she has diastolic dysfunction with A-fib and also likely pulmonary hypertension with sleep apnea but that is not diagnosed. I recommended that she follow-up for sleep apnea workup (4) CKD (chronic kidney disease), stage IV: Continue with Dr. Masterson. I continued irbesartan for now (5) Type 2 diabetes mellitus: 1600-calorie ADA weight loss diet and sliding scale insulin. Continue home insulin she is on high-dose degludec at 80 units daily (6) Obesity: Counseled regarding weight loss diet I recommend that she start daily weights calorie counting. She may be accounted for further Ozempic but likely at a lower dose and she needs to have her esophageal stricture evaluated (7) History of esophageal stricture: See above needs EGD possibly dilation Plan October 18, 2024 Patient is continued on iv diuresis due to persisting dyspnea and swelling, Bumex increased to 1.5mg iv every 12 hrs. Metoprolol 25 mg BID started today following which HR is better at 68 this evening. Repeat 12 lead EKG. Trop series mildly elevated without significant delta. Discussed with patient undergoing a stress test once euvolemic prior to discharge, however patient states she is extremely hesitant about this as previously she believes one of her friends during a stress test. Kidney function remaining stable today at 2.8. Urine output 1400 cc so far. Closely monitor renal function, continue diuresis until patient is euvolemic. Oxygen supplementation at 3 L/min today. October 19, 2024 Patient continues to be on Bumex, yesterday dose was increased to 1.5 mg IV every 12 hours, however creatinine today has trended up to 3.2. Urine output 1300 cc last 24 hours. Will reduce dose of Bumex to 0.5 mg IV every 12 hours today. Appreciate nephrology recommendations. Patient's persistent shortness of breath in spite of her diuresis may be multifactorial related to pulmonary edema, but also contributed by her pleural effusion. Per personal review of images patient appears to have left-sided pleural effusion. Will obtain CT of the chest to further assess. May need thoracentesis for symptom relief in case of moderate to large effusion. Leukocytosis has resolved today without any directed antibiotics, this makes pneumonia less likely, however CT chest will be further able to assess for this possibility as well. Check D-dimer to screen for PE. If positive to proceed with VQ scan. Dose of Eliquis would need to be increased from 2.5 twice daily to 5 mg twice daily in case patient has a DVT. Lower extremity Doppler was previously negative. Additionally patient's echocardiogram notes a dropped ejection fraction to 45 to 50% with mild global hypokinesia. Potentially may have anginal symptoms, however her symptoms are persistent regardless of any exertion and while laying in bed therefore angina as a source of her dyspnea is considered less likely at this time. Patient takes as needed albuterol inhaler at home. Will add albuterol inhalation for hospital use additionally and assess for improvement. 10/20/2024 vq scan done this morning, result pending plan for thoracentesis today eliquis on hold complains of sob on exertion, hopepfully thoracentesis will help symptoms echo shows reduced EF continue metoprolol 25 bid consult cardiology new onset HF PE not excluded at this time. continue diuretic check labs in AM ct chest shows: possible b/l pneumonia add antibiotics PDMP PDMP Reviewed: Not Reviewed Attestations 2 Medical Necessity Statement*: needs continued hospitalization 2/2 to sob, o2 requirements, Diagnoses Paroxysmal atrial fibrillation I48.0 CKD (chronic kidney disease) N18.9 Acute exacerbation of CHF (congestive heart failure) I50.9 CKD (chronic kidney disease), stage IV N18.4 Type 2 diabetes mellitus E11.9 Obesity E66.9 History of esophageal stricture Z87.19
[2024-10-20 14:10] LABS: KAPPA LIGHT CHAIN, FREE, SERUM 101.4 mg/L (3.3-19.4); KAPPA/LAMBDA LIGHT CHAINS FREE 1.52 (0.26-1.65); LAMBDA LIGHT CHAIN, FREE, SERU 66.9 mg/L (5.7-26.3)
--- NOTE | 2024-10-20 15:54 | XR_ITS ---
WS: [id number] CHEST XRAY TECHNIQUE: Portable chest. CLINICAL INFORMATION: post thoracentesis FINDINGS: Heart: Cardiomegaly Lungs: Post RIGHT thoracentesis. No pneumothorax. Resolved RIGHT pleural effusion. Residual LEFT pleural effusion appears stable. Bones: Osteopenia XR/XR chest 1V portable [id number] IMPRESSION: Resolved RIGHT pleural effusion postthoracentesis. No pneumothorax.
[2024-10-20 15:58] LABS: Apprearance, Body Fluid CLOUDY; Color, Body Fluid YELLOW; Cyto Order Verification Order Verified; PATH Referral YES
[2024-10-20 16:08] LABS: Body Fluid Polynuclear #Cells 0.008; Monocytes # Body Fluid 0.333; Mononuclear WBC Body Fluid % 97.700 %; Polynuclear WBC Body Fluid % 2.300 %
[2024-10-20 16:30] LABS: Glomerular Bsmt Membrane IGG <1.0 AI
[2024-10-20 16:40] LABS: ANCA Screen NEGATIVE (NEGATIVE)
[2024-10-20] MEDS: cefTRIAXone 1,000 mg SDV 1000 MG IVP (17:26)
[2024-10-20 17:32] LABS: Fluid Alkaline Phos. 10 IU/L
[2024-10-20 17:33] LABS: Fluid Laterality RIGHT PLEURAL
--- NOTE | 2024-10-20 17:58 | NM_ITS ---
WS: [id number] NUCLEAR MEDICINE LUNG VENTILATION AND PERFUSION CLINICAL INFORMATION: assess for PE TECHNIQUE: Ventilation/perfusion lung scan with 32.5 mCi technetium 99m DTPA and 5.3 mCi MAA. COMPARISON: Radiograph 10/20/2024 FINDINGS: Bilateral pleural effusions visualized on the prior recent chest CT and radiograph. Cardiomegaly. Matched wedge-shaped ventilation/perfusion defect in the LEFT lower lobe. Smaller peripheral matched defects in the RIGHT lower lobe. No mismatched defects. Findings intermediate probability for pulmonary embolus. Findings could be further assessed with CTA chest if renal function allows NM/NM pul vent and perfus* [id number] IMPRESSION: 1. Intermediate probability for pulmonary embolus.
[2024-10-20 21:00] LABS: ALPHA 1 GLOBULIN 0.4 g/dL (0.2-0.3); ALPHA 2 GLOBULIN 1.1 g/dL (0.5-0.9); BETA 1 GLOBULIN 0.3 g/dL (0.4-0.6); BETA 2 GLOBULIN 0.4 g/dL (0.2-0.5)
[2024-10-21] VITALS (10 sets, daily range): BP systolic 152–168; BP diastolic 81–91; PULSE 65–77; RESP 13–24; TEMP 36.4–37.1; O2SAT 91–95
[2024-10-21 03:32] LABS: Hematocrit 37.3 % (36-47); Hemoglobin 11.90 g/dL (11.27-16.99); Mean Corpuscular HGB Conc 31.9 g/dL (30-55); Mean Corpuscular Hemoglobin 28.3 pg (27-33); Mean Corpuscular Volume 88.8 fl (85-98); Nucleated Red Blood Cells % 0 %; Platelet Count 297 10^3/cmm (157-399); Red Blood Count 4.20 10^6/uL (3.85-5.65); White Blood Count 10.94 10^3/uL (3.29-11.43)
[2024-10-21 04:07] LABS: Alanine Aminotransferase 15 U/L (0-33); Albumin Level 2.5 g/dL (3.5-5.2); Alkaline Phosphatase 110 U/L (35-105); Anion Gap 14.4 (5-19); Aspartate Amino Transferase 15 U/L (0-32); Blood Urea Nitrogen 37 mg/dL (8-23); Calcium 8.7 mg/dL (8.5-10.5); Carbon Dioxide 28 mmol/L (22-29); Chloride 103 mmol/L (98-107); Creatinine Clr Calc Pharmacy 17.8673; Globulin 3.3 g/dL (1.3-4.6); Glucose 249 mg/dL (65-115); Magnesium 2.3 mg/dL (1.7-2.3); Osmolality Calculated 309 mOsm/kg (285-295); Potassium 4.4 mmol/L (3.5-5.1); Sodium 141 mmol/L (136-145); Total Protein 5.8 g/dL (6.6-8.7)
--- NOTE | 2024-10-21 07:37 | PM.PN ---
Subjective Subjective: The patient still short of breath but improved after having a 1 L thoracentesis yesterday. The patient is awaiting second side thoracentesis today. The patient has no nausea or vomiting or diarrhea or headache or chest pain. Medications: Reviewed: Yes Medication Review Details: Current Medications Acetaminophen (Acetaminophen 325 Mg Tablet) 650 mg PO Q6H PRN PRN Reason: Mild/Mod Pain Or Temp >/= 101 Last Admin: 10/19/24 04:44 Dose: 650 mg Albuterol/Ipratropium (Ipratropium-Albuterol 3 Ml Neb) 3 ml INHALATION Q6H.RESP D[facility]UV Last Admin: 10/21/24 01:13 Dose: Not Given Amlodipine Besylate (Amlodipine 10 Mg Tablet) 5 mg PO DAILY [facility] Last Admin: 10/20/24 07:59 Dose: 5 mg Apixaban (Apixaban 5 Mg Tablet) 2.5 mg PO BID@0900,2100 [facility] On Hold: 10/19/24 11:50 Last Admin: 10/19/24 08:42 Dose: 2.5 mg Bumetanide (Bumetanide 0.25 Mg/Ml Sdv 4 Ml) 1 mg IVP Q12H [facility] Last Admin: 10/20/24 21:15 Dose: 1 mg Ceftriaxone Sodium (Ceftriaxone 1,000 Mg Sdv) 1,000 mg IVP Q24H [facility]; Protocol Last Admin: 10/20/24 17:26 Dose: 1,000 mg Ezetimibe (Ezetimibe 10 Mg Tablet) 10 mg PO DAILY [facility] Last Admin: 10/20/24 07:59 Dose: 10 mg Ergocalciferol (Ergocalciferol (Vitamin D2) 50,000 Unit Capsule) 50,000 unit PO Q7D [facility] Last Admin: 10/19/24 10:38 Dose: 50,000 unit Gabapentin (Gabapentin 100 Mg Capsule) 100 mg PO BID [facility] Last Admin: 10/20/24 17:21 Dose: 100 mg Glucagon (Glucagon 1 Mg/Ml Kit 1 Ml) 1 mg IM ONCE PRN; Protocol PRN Reason: Adult Acute Hypoglycemia Nursing Prot. Dextrose (D5w) 500 mls @ 0 mls/hr IV ONCE PRN; Protocol PRN Reason: Adult Acute Hypoglycemia Prot Dextrose (D10w) 125 mls @ 750 mls/hr IV PRN PRN; Protocol PRN Reason: Adult Acute Hypoglycemia Nursing Protocol Dextrose (D10w) 250 mls @ 1,000 mls/hr IV PRN PRN; Protocol PRN Reason: Adult Acute Hypoglycemia Nursing Protocol Insulin Human Lispro (Insulin Lispro 100 Unit/1 Ml) 0 unit SUBCUT WM&BEDTIME [facility]; Protocol Last Admin: 10/20/24 21:15 Dose: 6 unit Melatonin (Melatonin 3 Mg Tablet) 3 mg PO BEDTIME PRN PRN Reason: INSOMNIA Last Admin: 10/18/24 22:49 Dose: 3 mg Metoprolol Tartrate (Metoprolol Tartrate 25 Mg Tablet) 25 mg PO Q12H [facility] Last Admin: 10/21/24 02:08 Dose: 25 mg Non-Formulary Medication (Galantamine) 4 mg PO BID [facility] Last Admin: 10/20/24 17:21 Dose: 4 mg Ondansetron HCl (Ondansetron Hcl Odt 4 Mg Tab) 4 mg PO Q6H PRN PRN Reason: NAUSEA AND VOMITING Ondansetron HCl (Ondansetron 2 Mg/Ml Sdv 2 Ml) 4 mg IVP Q8H PRN PRN Reason: vomiting, or N/V if npo Pantoprazole Sodium (Pantoprazole Dr 40 Mg Tablet) 40 mg PO DAILY [facility] Last Admin: 10/20/24 07:59 Dose: 40 mg Vitals/I&O/Wt Last Vital Signs Temp 98.0 F 10/21/24 04:00 Pulse 69 10/21/24 04:00 Resp 13 10/21/24 04:00 BP 152/91 10/21/24 04:00 Pulse Ox 94 10/21/24 04:00 O2 Del Method Nasal Cannula 10/21/24 04:00 O2 Flow Rate 2 10/20/24 20:35 10/20/24 10/21/24 10/21/24 22:59 06:59 14:59 Intake Total 480 / 960 240 / 1200 Output Total 600 / 600 600 / 1200 Balance -120 / 360 -360 / 0 Weight last 48 hrs Weight 93.485 kg Weight 92.442 kg Weight 92.442 kg Physical Exam Narrative: The patient is sitting up in bed. Vital signs noted. She requires nasal cannula oxygen. HEENT is normocephalic atraumatic. Neck is supple. Lungs -lower monte dull and crackles bilaterally. Heart positive S1-S2 Abdomen soft positive bowel sounds extremities- trace bilateral leg edema. Neuro awake alert oriented x 3. Moves all extremities. Urinary Catheter Management: Vazquez: Cath Placed During This Visit: yes Reason for Continuing Indwelling Catheter: Accurate Measurement of Urinary Output in Critically Ill Patients Urinary Catheter Date of Insertion: 10/17/24 Data 10/21/24 03:18 10/21/24 03:18 Micro: Microbiology 10/18/24 13:41 Urine Culture - Final Urine,Clean Catch A&P Assessment and plan (1) CKD (chronic kidney disease), stage IV: 69-year-old lady 1. Cardiac patient's last echo was 2 years ago with normal EF of 56% that time she had grade 2 out of 4 diastolic dysfunction with moderately elevated filling pressures. Patient presents now with A-fib and pulm overload. Repeat echocardiogram shows EF of 45 to 50% with mild global hypokinesis. 2. Renal patient's creatinine was 1 in April 2023. Her creatinine went up to 1.3 mg/dL in July 2023 by November 2023 creatinine went to 1.7 improved again to 1.3. She is here creatinines been approximately 2 mg/dL in July 2024 and in August her creatinine went up to 2.5 mg/dL and she was admiited w/ a creatinine of 2.7 mg/dL. The patient follows with [facility] Dr. Bey and per patient she was told that she has diabetic nephropathy. Patient's urinalysis had 4+ protein. 1+ glucose. She has 1+ urine blood. She has 3-5 RBCs in the past now 6-10. She also has significant leukocytosis. With trace bacteria. Will send basic serologies. Patient's urine protein creatinine ratio 1 year ago was 2.93 and in July went up to 19. 83. This can be diabetes or concern for other nephrotic syndrome. -check lipids -her albumin is 3.3 -cr stablized at 3.3 mg/dl for now dec diuretics Renal ultrasound right kidney 11 cm, left kidney 11.7 cm there is normal echogenicity. -serologies are pending 3. leukocytosis- improving 4. Venous Doppler no acute DVT in right lower extremity. 5. Blood pressure -mo nitor after second thoracentesis, if remains elevated-can increase amlodipine or metoprolol dose. avoid HCTZ or shravan-i/ arb now w. MANUELITO- once she stablizes, would add a ARB and if possible a SGLT 2-i 6. renal bone mineral metabolism- replace vit d. level is 6 pth 90- repeat in 3 months 7. anemia- hgb stable at 11.9 Seen and examined with the nurse using audiovisual equipment. The patient consents to telehealth. Plan Anticoagulation and diuretics. PDMP PDMP Reviewed: Not Reviewed Attestations Medical Necessity Statement*: per hospitalist- anemia, MANUELITO, volume overload, effusions Time Spent in Patient Care: 16 - 35 minutes (>than 50% of time spent in counselling and/or direct pt care on unit). Coding Level of Care Code Acute Code for g Fwd Diagnoses CKD (chronic kidney disease), stage IV N18.4
[2024-10-21] MEDS: bumetanide 0.25 mg/mL SDV 4 mL 1 MG IVP ×2 (09:02→21:08)
[2024-10-21] MEDS: NON-FORMULARY MEDICATION (Galantamine 4 mg tablet) 4 EACH PO ×2 (10:52→17:54)
--- NOTE | 2024-10-21 11:48 | P.CONIM_ITS ---
<Statement entered by Lala Lantigua MD - 10/21/24 20:47> Patient was evaluated and cared for in conjunction with an advanced practice practitioner. I personally examined the patient and reviewed the chart and all pertinent data including imaging, telemetry, and laboratory results. I discussed the patient in detail with the advanced practice practitioner. Please see their note for complete H&P testing result and agreed upon plan of care for the patient. 69-year-old female past medical history significant for not any major medical problem except diabetes mellitus, renal problem hypertension presented with worsening of shortness of breath PND orthopnea noted to be in decompensated systolic heart failure new onset along with bilateral pleural effusion she is status post diuresis and thoracentesis. Left ventricular ejection fraction appeared to be moderately depressed.. Patient was noted to be in acute on chronic renal failure. GENERAL: Patient is alert, awake and oriented x3. HEART: Regular S1 and S2. No murmur, rub or gallop. LUNGS: Clear to auscultate on the right side. CENTRAL NERVOUS SYSTEM: Grossly nonfocal. EXTREMITIES: Lower extremities with out edema bilaterally. Assessment and plan New onset of systolic heart failure New onset of atrial fibrillation now converted to sinus rhythm Bilateral pleural effusion Acute on chronic renal failure Continue IV diuresis recommend increasing Bumex to 1 mg twice daily Once euvolemic plan to optimize medications however cannot start Entresto for now due to renal failure Plan for left heart catheterization once euvolemic and at a optimal and baseline renal function. Providers/Reason For Consult 2 Consulting Physician/Specialty*: Dr Shwetha Lantigua, cardiology Reason for Consult*: new onset systolic heart failure Requesting Physician: Dr Perkins Attending Physician: Lisa Perkins MD Primary Care Provider: Jose Bah MD History of Present Illness History of Present Illness Sandra Lemus is a 69 year old female with past medical history of diabetes, KADEN noncompliant with CPAP, history of CKD, nephrolithiasis, ovarian cancer, hyperlipidemia, hypertension. She presented to the emergency room 10/17/2024 with shortness of breath and palpitations, found to be in atrial fibrillation with RVR converted to sinus rhythm with diltiazem IV. She was found to have bilateral pleural effusions; she has been diuresed with IV Bumex and thoracentesis performed on 10/20/2024 to the right side, draining 1000 mL of clear yellow fluid. Subjective work of breathing has improved, remains on oxygen. No cardiac history, no chest pain with this episode. She has been anticoagulated with apixaban 2.5 mg twice a day reduced for MANUELITO on CKD (baseline for the last 3 months 2.0-2.5, prior to that was 1.0-1.3). Echocardiogram obtained 10/17/2024 shows LVEF 45 to 50%, previous echocardiogram July 2023 LVEF 56%. Review of Systems 2 Const: Denies: fever(s), chills, change in weight, fatigue or diaphoresis Eyes: Denies: change in vision ENMT: Denies: epistaxis Card: Reports: dyspnea on exertion; Denies: chest pain, palpitations, irregular heart rhythm, edema, syncope, pre- syncope, orthopnea or leg pain with exertion Resp: Reports: dyspnea; Denies: productive cough or wheezing GI: Denies: nausea, vomiting, hematemesis, hematochezia or melena : Denies: hematuria Musc: Denies: extremity swelling Rene/Lymph: Denies: easy bruising or easy bleeding Medications/Allergies Home Medications ?Medication ?Instructions ?Recorded ?Confirmed ?Last Taken ?Type Marine Phytoplankton 250 mg PO DAILY 10/04/2210/16/24 History semaglutide 2 mg/dose (8 mg/3 mL) 2 mg (0.75 mL) SUBCU T .weekly #3 mL 05/31/23 10/17/24 10/12/24 Rx subcutaneous pen injector (Ozempic) vitamins A,C,F-rztl-emkaql 4,296 1 cap PO BID 06/19/23 10/17/24 Unknown History mcg-226 mg-90 mg capsule (PreserVision AREDS) insulin degludec 200 unit/mL (3 80 unit (0.4 mL) SUBCU T DAILY #9 mL 08/21/23 10/17/24 10/16/24 Rx mL) subcutaneous pen (Tresiba FlexTouch U-200 insulin) albuterol sulfate 90 mcg/actuation 2 puff inhalation Q 6H PRN 02/13/24 10/17/24 Unknown Rx aerosol inhaler (Ventolin HFA) shortness of breath or wheezing #8.5 grams galantamine 4 mg tablet 4 mg PO BID #60 tabs 5 10/17/24 Unknown Rx gabapentin 100 mg capsule 100 mg PO BID PRN nerve pain 08/05/24 10/17/24 Unknown History magnesium 250 mg tablet 250 mg PO DAILY 08/05/2410/16/24 History rollaid walker with seat #1 ea 08/05/24 10/17/24 Unkn own Rx bumetanide 1 mg tablet 1 mg PO BID #100 tabs 10/17/24 Unknown Rx ezetimibe 10 mg tablet 10 mg PO DAILY #90 tabs 08/2110/17/24 10/16/24 Rx omeprazole 40 mg capsule,delayed 40 mg PO BID #120 cap s 10/15/24 10/17/24 10/16/24 Rx release ondansetron 4 mg disintegrating 4 mg PO Q6H PRN nausea and 10/15/24 10/17/24 Unknown Rx tablet vomiting #60 tabs irbesartan 150 mg tablet 150 mg PO DAILY 10/17/2410/16/24 History Allergies Allergy/AdvReac Type Severity Reaction Status Date / Time sitagliptin (From ) Allergy Unknown Unknown Verified 10/15/24 14:55 empagliflozin (From Allergy Unknown Verified 10/15/24 14:55 Jardiance) Current Medications Generic Name Dose Route Start Last Admin Trade Name Freq PRN Reason Stop Dose Admin Acetaminophen 650 mg 10/17/24 09:02 10/19/24 04:44 Acetaminophen 325 Mg Tablet PO 650 mg Q6H PRN Administration Mild/Mod Pain Or Temp >/= 101 Albuterol/Ipratropium 3 ml 10/19/24 20:00 10/21/24 07:44 Ipratropium-Albuterol 3 Ml Neb INHALATION 3 ml Q6H.RESP DHRUV Administration Amlodipine Besylate 5 mg 10/19/24 09:00 10/21/24 09:02 Amlodipine 10 Mg Tablet PO 5 mg DAILY DHRUV Administration Apixaban 2.5 mg 10/17/24 09:02 10/19/24 08:42 Apixaban 5 Mg Tablet PO 2.5 mg On Hold: 10/19/24 11:50 BID@0900,2100 DHRUV Administration Bumetanide 1 mg 10/20/24 10:00 10/21/24 09:02 Bumetanide 0.25 Mg/Ml Sdv 4 Ml IVP 1 mg Q12H DHRUV Administration Ceftriaxone Sodium 1,000 mg 10/19/24 18:15 10/20/24 17:26 Ceftriaxone 1,000 Mg Sdv IVP 1,000 mg Q24H DHRUV Administration Protocol Ezetimibe 10 mg 10/17/24 09:02 10/21/24 09:03 Ezetimibe 10 Mg Tablet PO 10 mg DAILY DHRUV Administration Ergocalciferol 50,000 unit 10/19/24 10:15 10/19/24 10:38 Ergocalciferol (Vitamin D2) 50,000 Unit Capsule PO 50,000 unit Q7D DHRUV Administration Gabapentin 100 mg 10/17/24 09:02 10/21/24 09:03 Gabapentin 100 Mg Capsule PO 100 mg BID DHRUV Administration Insulin Human Lispro 0 unit 10/17/24 12:00 10/21/24 09:03 Insulin Lispro 100 Unit/1 Ml SUBCUT 10 unit WM&BEDTIME DHRUV Administration Protocol Melatonin 3 mg 10/18/24 21:44 10/18/24 22:49 Melatonin 3 Mg Tablet PO 3 mg BEDTIME PRN Administration INSOMNIA Metoprolol Tartrate 25 mg 10/18/24 13:15 10/21/24 02:08 Metoprolol Tartrate 25 Mg Tablet PO 25 mg Q12H DHRUV Administration Non-Formulary Medication 4 mg 10/18/24 10:30 10/21/24 10:52 Galantamine PO 4 mg BID DHRUV Administration Pantoprazole Sodium 40 mg 10/17/24 09:30 10/21/24 09:[address] 40 Mg Tablet PO 40 mg DAILY DHRUV Administration PFSH Acute 2 PFSH: Medical History CKD (chronic kidney disease), stage IV CKD stage 3b, GFR 30-44 ml/min Diabetic nephropathy Squamous cell carcinoma of skin Nephrolithiasis History of ovarian cancer Chronic back pain Stage 3a chronic kidney disease (CKD) HLD (hyperlipidemia) Insulin dependent diabetes mellitus Essential hypertension Obesity Surgical History History of carpal tunnel release History of decompression of ulnar nerve H/O: hysterectomy Social History Smoking and tobacco/nicotine status: never used tobacco/nicotine Second hand smoke exposure: No Alcohol intake: current Alcohol intake frequency: few times a month Substance/Drug Use: never Additional social history: She wants full code as discussed with Tenzin and myself 10/17/2024 by Derian Hsieh MD Caregiver/support person: No Lives independently: No Household members: spouse Marital status: Number of children: 1 service: No Current occupational status: unemployed Current occupational exposures/hazards: No 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 Pets and animals: No Do you think of yourself as: Straight/Heterosexual Current gender identity: Female Vitals/I&O/Wt Last Vital Signs Temp 97.6 F 10/21/24 08:00 Pulse 68 10/21/24 08:00 Resp 18 10/21/24 08:00 BP 159/83 10/21/24 08:00 Pulse Ox 95 10/21/24 08:00 O2 Del Method Nasal Cannula 10/21/24 08:00 O2 Flow Rate 2 10/21/24 08:00 10/20/24 10/21/24 10/21/24 22:59 06:59 14:59 Intake Total 480 / 1200 240 / 1200 120 / 120 Output Total 600 / 1200 600 / 1200 Balance -120 / 0 -360 / 0 120 / 120 Weight last 48 hrs Weight 206 lb 1.6 oz Weight 203 lb 12.8 oz Weight 203 lb 12.8 oz Physical Exam 2 Const: COMMON NORMALS: no acute distress and patient oriented x3 GENERAL APPEARANCE: cooperative and comfortable ORIENTATION/CONSCIOUSNESS: Yes awake, Yes oriented to person, Yes oriented to place and Yes oriented to time Chest: COMMONS NORMALS: normal inspection of the chest and normal palpation of entire chest wall CHEST: Yes Symmetrical chest wall rise Resp: COMMON NORMALS: normal respiratory effort, No retractions, No use of accessory muscles and clear to auscultation bilaterally EFFORT & INSPECTION: Yes symmetric chest movement AUSCULTATION: clear to auscultation bilaterally Cardio: COMMON NORMALS: regular rate, regular rhythm, S1 normal heart sound present, S2 normal heart sound present, No gallops present (Cardio), No clicks present (Cardio), No murmurs present (Cardio) and No rub (Cardio) RATE: r egular rate RHYTHM: regular rhythm HEART SOUNDS: S1 normal heart sound present and S2 normal heart sound present PERIPHERAL PULSES: radial pulses present Extremity: COMMON NORMALS: no pedal edema Neuro: COMMON NORMALS: patient oriented x3 and moves all extremities S ENSORIUM/ORIENTATION: Yes oriented to person, Yes oriented to place and Yes oriented to time Urinary Catheter Management: Vazquez: Cath Placed During This Visit: yes Reason for Continuing Indwelling Catheter: Accurate Measurement of Urinary Output in Critically Ill Patients Urinary Catheter Date of Insertion: 10/17/24 Data 10/21/24 03:18 10/21/24 03:18 Micro: Microbiology 10/20/24 15:30 Gram Stain - Final Pleural Fluid 10/18/24 13:41 Urine Culture - Final Urine,Clean Catch A&P Assessment and plan (1) Acute heart failure with mildly reduced ejection fraction (HFmrEF): (2) Essential hypertension: (3) HLD (hyperlipidemia): (4) Atrial fibrillation with rapid ventricular response: (5) Insulin dependent diabetes mellitus: (6) CKD (chronic kidney disease), stage IV: Plan She is in sinus rhythm currently. Anticoagulation currently on hold. Continue beta-venkata metoprolol, for blood pressure control. She appears euvolemic currently, recommend to continue IV Bumex 1 mg twice daily. For further evaluation of new onset CHF, coronary angiogram is required however given renal function and creatinine today of 3.3, will defer for a few days to allow renal recovery. Will plan for Entresto if or when renal function allows. Ultrasound of kidney is normal, performed 10/17/24. PDMP PDMP Reviewed: Not Reviewed Coding Level of Care Code Acute Code for [facility] Fwd Diagnoses Acute heart failure with mildly reduced ejection fraction (HFmrEF) I50.21 Essential hypertension I10 HLD (hyperlipidemia) E78.5 Atrial fibrillation with rapid ventricular response I48.91 Insulin dependent diabetes mellitus CKD (chronic kidney disease), stage IV N18.4
--- NOTE | 2024-10-21 14:11 | XRR_ITS ---
PROCEDURE INFORMATION: Exam: XR Chest Exam date and time: 10/21/2024 2:15 PM Age: 69 years old Clinical indication: Condition or disease; Lung condition and disease; Pleural effusion; Other: Not specified TECHNIQUE: Imaging protocol: Radiologic exam of the chest. Views: 1 view. COMPARISON: CR XR chest 1V portable [id number] 10/20/2024 4:06 PM FINDINGS: Lungs: Compressive atelectasis of the left lung base. Right lung is relatively clear. Pleural spaces: Similar small to moderate left-sided pleural effusion. No sizable pneumothorax. Heart/Mediastinum: Mild cardiomegaly. Bones/joints: Unremarkable. XR/XR chest 1V portable [id number] IMPRESSION: As above.
--- NOTE | 2024-10-21 14:23 | US_ITS ---
WS: [id number] ULTRASOUND-GUIDED LEFT THORACENTESIS CLINICAL INFORMATION: left pleural effusion PROCEDURE: Informed consent: The risks, benefits, and alternatives of the procedure were discussed with the patient. Verbal and written consent was obtained. Timeout: A timeout was performed to confirm the correct patient, procedure, and site. Site: LEFT chest Preparation: A suitable skin site was identified. The patient was prepped and draped in usual sterile fashion. Lidocaine 1% was used for local anesthesia. Catheter: 4 Lithuanian One-Step catheter. Fluid Volume: 700 ml Color: Clear yellow Complications: None. US/ thoracentesis [id number] IMPRESSION: 1. Uncomplicated ultrasound-guided LEFT thoracentesis. 2. 700 cc clear yellow fluid was removed
--- NOTE | 2024-10-21 15:32 | XR_ITS ---
WS: [id number] CHEST XRAY TECHNIQUE: Portable chest. CLINICAL INFORMATION: post thoracentesis COMPARISON: Radiograph 10/21/2024 at 2:18 p.m. FINDINGS: Heart: Cardiomegaly. Mild pulmonary vascular congestion. Lungs: Improved and essentially resolved LEFT pleural effusion. Trace LEFT pleural fluid or pleural thickening. Residual LEFT lower lobe atelectasis and/or partial consolidation. RIGHT lung is well aerated. Bones: Osteopenia. XR/XR chest 1V portable [id number] IMPRESSION: 1. Improved LEFT pleural effusion postthoracentesis. Residual compressive atel ectasis LEFT lower lobe. 2. No pneumothorax.
--- NOTE | 2024-10-21 15:35 | PC.NURSE ---
Dr. Perkins order a urgent ultrasound guided thoracentesis of the patients left lobe after patients portable chest xray at 1421. Radiology/Ultrasound was contacted by charge nurse Rashida CRUMP to confirm new order and availability. Nurse resident Lv Hagan RN went and spoke with the patient about the new order and educated the patient about the procedure, possible side effects and complications and patient understood. The patient sign a informed consent for invasive procedure at 1443. The metal room dental technician came to the CSU floor at 1500 and assisted the patient to a sitting position on the edge of the bed and and nurse resident Lv Hagan RN set up the bedside table with a pillow to lean on while setting up the patients blood pressure cuff to be monitored every two minutes. Dr. Sorto Arrived to the floor and spoke with the patient and signed the informed consent at 1505 and started prepping the incision site. Time out was started at 1510 and the procedure started. Patients vital signs stayed within normal limits. The patient tolerated the procedure well with no complications and had a total of 700ml drained. Dr. Sorto applied tegaderm and xeroform to the puncture sight and no complications with the dressing. Patient was assisted back into their bed by nurse resident and instrumentation and controls technician. No complaints from the patient. Bed was lowered all the way to the floor, bedside table put back within reach as well as the patients call button. Charge nurse Rashida CRUMP was notified. Stat portable chest xray was order for post thoracentesis. Will continue to monitor.
--- NOTE | 2024-10-21 17:09 | P.PN_ITS ---
Subjective 2 Subjective: Seen this morning. She is awaiting thoracentesis of her left side today. 1 L was removed yesterday. Shortness of breath slightly better. Creatinine 3.3. Vitals/I&O/Wt Last Vital Signs Temp 98.2 F 10/21/24 12:00 Pulse 70 10/21/24 13:38 Resp 14 10/21/24 13:38 BP 158/86 10/21/24 12:00 Pulse Ox 93 10/21/24 13:38 O2 Del Method Room Air 10/21/24 13:38 O2 Flow Rate 2 10/21/24 12:00 10/21/24 10/21/24 10/21/24 06:59 14:59 22:59 Intake Total 240 / 1200 240 / 240 Output Total 600 / 1200 Balance -360 / 0 240 / 240 Weight last 48 hrs Weight 93.485 kg Weight 92.442 kg Weight 92.442 kg Physical Exam 2 Narrative: General: No acute distress, AO x3 HEENT: PERRLA, pupils bilaterally equal and reactive, pallors not present Chest: Normal vesicular breath sounds, no added sounds, equal good air entry bilaterally CVS: S1-S2 regular, no murmurs, no tachycardia, no gallops, no rubs Abdomen: Soft, nontender, bowel sounds present Neuro: No focal deficits, no facial deformity, Urinary Catheter Management: Vazquez: Cath Placed During This Visit: yes Reason for Continuing Indwelling Catheter: Accurate Measurement of Urinary Output in Critically Ill Patients Urinary Catheter Date of Insertion: 10/17/24 Data 10/21/24 03:18 10/21/24 03:18 Micro: Microbiology 10/20/24 15:30 Gram Stain - Final Pleural Fluid Body Fluid Culture - Preliminary A&P Assessment and plan (1) Paroxysmal atrial fibrillation: Patient is now in sinus rhythm but due to anasarca and kidney disease I am going to have her admitted for diuresis and consultation with Dr. Masterson the accounting auditor who I have already called. (2) CKD (chronic kidney disease): Known proteinuria diabetes hypertension. Cannot exclude sleep apnea (3) Acute exacerbation of CHF (congestive heart failure): We know she has diastolic dysfunction with A-fib and also likely pulmonary hypertension with sleep apnea but that is not diagnosed. I recommended that she follow-up for sleep apnea workup (4) CKD (chronic kidney disease), stage IV: Continue with Dr. Masterson. I continued irbesartan for now (5) Type 2 diabetes mellitus: 1600-calorie ADA weight loss diet and sliding scale insulin. Continue home insulin she is on high-dose degludec at 80 units daily (6) Obesity: Counseled regarding weight loss diet I recommend that she start daily weights calorie counting. She may be accounted for further Ozempic but likely at a lower dose and she needs to have her esophageal stricture evaluated (7) History of esophageal stricture: See above needs EGD possibly dilation Plan October 18, 2024 Patient is continued on iv diuresis due to persisting dyspnea and swelling, Bumex increased to 1.5mg iv every 12 hrs. Metoprolol 25 mg BID started today following which HR is better at 68 this evening. Repeat 12 lead EKG. Trop series mildly elevated without significant delta. Discussed with patient undergoing a stress test once euvolemic prior to discharge, however patient states she is extremely hesitant about this as previously she believes one of her friends during a stress test. Kidney function remaining stable today at 2.8. Urine output 1400 cc so far. Closely monitor renal function, continue diuresis until patient is euvolemic. Oxygen supplementation at 3 L/min today. October 19, 2024 Patient continues to be on Bumex, yesterday dose was increased to 1.5 mg IV every 12 hours, however creatinine today has trended up to 3.2. Urine output 1300 cc last 24 hours. Will reduce dose of Bumex to 0.5 mg IV every 12 hours today. Appreciate nephrology recommendations. Patient's persistent shortness of breath in spite of her diuresis may be multifactorial related to pulmonary edema, but also contributed by her pleural effusion. Per personal review of images patient appears to have left-sided pleural effusion. Will obtain CT of the chest to further assess. May need thoracentesis for symptom relief in case of moderate to large effusion. Leukocytosis has resolved today without any directed antibiotics, this makes pneumonia less likely, however CT chest will be further able to assess for this possibility as well. Check D-dimer to screen for PE. If positive to proceed with VQ scan. Dose of Eliquis would need to be increased from 2.5 twice daily to 5 mg twice daily in case patient has a DVT. Lower extremity Doppler was previously negative. Additionally patient's echocardiogram notes a dropped ejection fraction to 45 to 50% with mild global hypokinesia. Potentially may have anginal symptoms, however her symptoms are persistent regardless of any exertion and while laying in bed therefore angina as a source of her dyspnea is considered less likely at this time. Patient takes as needed albuterol inhaler at home. Will add albuterol inhalation for hospital use additionally and assess for improvement. 10/20/2024 vq scan done this morning, result pending plan for thoracentesis today eliquis on hold complains of sob on exertion, hopepfully thoracentesis will help symptoms echo shows reduced EF continue metoprolol 25 bid consult cardiology new onset HF PE not excluded at this time. continue diuretic check labs in AM ct chest shows: possible b/l pneumonia add antibiotics 10/21/2024 Continue ceftriaxone at this time. Complete 7-day course total Consult cardiology today for new onset heart failure. Shortness of breath is improved but not completely resolved at this time. She is currently requiring nasal cannula 2 L. 1 L fluid was removed off of right lung yesterday via thoracentesis. Fluid studies are pending at this time. Left side thoracentesis will be done today. Will place on heparin drip starting 9 PM. Continue to hold off on Eliquis in case of anticipated cardio procedures. Discussed with Dr. Lantigua in detail. Patient will likely require coronary angiogram going forward however we will wait on kidney function to improve. Continue Bumex 1 mg every 12 hours. Continue metoprolol tartrate 25 every 12 hours. Cardiology consulted. Will await recommendations VQ scan does show intermediate probability of PE however clinically I have low suspicion. After thoracentesis her shortness of breath has improved somewhat. Will be placing on a heparin drip for A-fib which will cover for PE as well at this time. PDMP PDMP Reviewed: Not Reviewed Attestations 2 Medical Necessity Statement*: needs continued hospitalization 2/2 to sob, o2 requirements, Diagnoses Paroxysmal atrial fibrillation I48.0 CKD (chronic kidney disease) N18.9 Acute exacerbation of CHF (congestive heart failure) I50.9 CKD (chronic kidney disease), stage IV N18.4 Type 2 diabetes mellitus E11.9 Obesity E66.9 History of esophageal stricture Z87.19
[2024-10-21] MEDS: cefTRIAXone 1,000 mg SDV 1000 MG IVP (17:56)
[2024-10-21] MEDS: heparin drip 25,000 UNIT/500 ML PREMIX 26 UNIT IV (20:11)
[2024-10-21] MEDS: heparin 5,000 unit/mL INJ 1 mL IVP (20:12)
[2024-10-22] VITALS (14 sets, daily range): BP systolic 135–171; BP diastolic 69–84; PULSE 66–79; RESP 12–18; TEMP 36.6–36.9; O2SAT 91–96
[2024-10-22 03:06] LABS: Partial Thromboplastin Time 80.4 SECONDS (23.9-36.7)
[2024-10-22 03:11] LABS: Alanine Aminotransferase 18 U/L (0-33); Albumin Level 2.5 g/dL (3.5-5.2); Alkaline Phosphatase 107 U/L (35-105); Anion Gap 15.4 (5-19); Aspartate Amino Transferase 19 U/L (0-32); Blood Urea Nitrogen 42 mg/dL (8-23); Calcium 8.8 mg/dL (8.5-10.5); Carbon Dioxide 29 mmol/L (22-29); Chloride 101 mmol/L (98-107); Creatinine Clr Calc Pharmacy 18.5380; Globulin 3.4 g/dL (1.3-4.6); Glucose 173 mg/dL (65-115); Magnesium 2.2 mg/dL (1.7-2.3); Osmolality Calculated 307 mOsm/kg (285-295); Potassium 4.4 mmol/L (3.5-5.1); Sodium 141 mmol/L (136-145); Total Protein 5.9 g/dL (6.6-8.7)
--- NOTE | 2024-10-22 07:36 | P.PN_ITS ---
Subjective 2 Subjective: The patient is status post thoracentesis in the last 2 days. 700 cc removed yesterday liters removed the day earlier. Patient states breathing is improving. She has no nausea or vomiting no diarrhea no headaches or chest pain. Medications: Reviewed: Yes Medication Review Details: Current Medications Acetaminophen (Acetaminophen 325 Mg Tablet) 650 mg PO Q6H PRN PRN Reason: Mild/Mod Pain Or Temp >/= 101 Last Admin: 10/19/24 04:44 Dose: 650 mg Albuterol/Ipratropium (Ipratropium-Albuterol 3 Ml Neb) 3 ml INHALATION Q6H.RESP DHRUV Last Admin: 10/21/24 20:56 Dose: 3 ml Amlodipine Besylate (Amlodipine 10 Mg Tablet) 5 mg PO DAILY [facility] Last Admin: 10/21/24 09:02 Dose: 5 mg Bumetanide (Bumetanide 0.25 Mg/Ml Sdv 4 Ml) 1 mg IVP Q12H DHRUV Last Admin: 10/21/24 21:08 Dose: 1 mg Ceftriaxone Sodium (Ceftriaxone 1,000 Mg Sdv) 1,000 mg IVP Q24H DHRUV; Protocol Last Admin: 10/21/24 17:56 Dose: 1,000 mg Ezetimibe (Ezetimibe 10 Mg Tablet) 10 mg PO DAILY [facility] Last Admin: 10/21/24 09:03 Dose: 10 mg Ergocalciferol (Ergocalciferol (Vitamin D2) 50,000 Unit Capsule) 50,000 unit PO Q7D [facility] Last Admin: 10/19/24 10:38 Dose: 50,000 unit Gabapentin (Gabapentin 100 Mg Capsule) 100 mg PO BID [facility] Last Admin: 10/21/24 17:54 Dose: 100 mg Glucagon (Glucagon 1 Mg/Ml Kit 1 Ml) 1 mg IM ONCE PRN; Protocol PRN Reason: Adult Acute Hypoglycemia Nursing Prot. Heparin Sodium (Porcine) (Heparin 5,000 Unit/Ml Inj 1 Ml) 0 unit IVP PRN PRN; Protocol PRN Reason: Heparin Weight Based Protocol -Subsequent Bolus Dextrose (D5w) 500 mls @ 0 mls/hr IV ONCE PRN; Protocol PRN Reason: Adult Acute Hypoglycemia Prot Dextrose (D10w) 125 mls @ 750 mls/hr IV PRN PRN; Protocol PRN Reason: Adult Acute Hypoglycemia Nursing Protocol Dextrose (D10w) 250 mls @ 1,000 mls/hr IV PRN PRN; Protocol PRN Reason: Adult Acute Hypoglycemia Nursing Protocol Heparin Sodium/Sodium Chloride (Heparin Drip) 25,000 unit in 500 mls @ 0 mls/hr IV CONT DHRUV; Protocol Last Titration: 10/22/24 03:25 Dose: 12.84 unit/kg/hr, 24 mls/hr Insulin Human Lispro (Insulin Lispro 100 Unit/1 Ml) 0 unit SUBCUT WM&BEDTIME DHRUV; Protocol Last Admin: 10/21/24 20:41 Dose: 10 unit Melatonin (Melatonin 3 Mg Tablet) 3 mg PO BEDTIME PRN PRN Reason: INSOMNIA Last Admin: 10/18/24 22:49 Dose: 3 mg Metoprolol Tartrate (Metoprolol Tartrate 25 Mg Tablet) 25 mg PO Q12H [facility] Last Admin: 10/21/24 23:14 Dose: 25 mg Non-Formulary Medication (Galantamine) 4 mg PO BID [facility] Last Admin: 10/21/24 17:54 Dose: 4 mg Ondansetron HCl (Ondansetron Hcl Odt 4 Mg Tab) 4 mg PO Q6H PRN PRN Reason: NAUSEA AND VOMITING Ondansetron HCl (Ondansetron 2 Mg/Ml Sdv 2 Ml) 4 mg IVP Q8H PRN PRN Reason: vomiting, or N/V if npo Pantoprazole Sodium (Pantoprazole Dr 40 Mg Tablet) 40 mg PO DAILY [facility] Last Admin: 10/21/24 09:02 Dose: 40 mg Vitals/I&O/Wt Last Vital Signs Temp 98.1 F 10/22/24 07:19 Pulse 66 10/22/24 07:19 Resp 14 10/22/24 07:19 BP 167/79 10/22/24 07:19 Pulse Ox 93 10/22/24 07:19 O2 Del Method Room Air 10/22/24 07:19 O2 Flow Rate 2 10/21/24 12:00 10/21/24 10/22/24 10/22/24 22:59 06:59 14:59 Intake Total 480 / 720 428.067 / 1148.067 Output Total 1925 / 1925 650 / 2575 Balance -1445 / -1205 -221.933 / -1426.933 Weight last 48 hrs Weight 91.127 kg Weight 91.127 kg Weight 93.485 kg Physical Exam 2 Narrative: The patient is lying comfortably in bed. Vital signs noted. HEENT is normocephalic atraumatic. Neck is supple. Lungs -improved air movement b/l. Heart positive S1-S2 Abdomen soft positive bowel sounds extremities- trace bilateral leg edema. Neuro awake alert oriented x 3. Moves all extremities. Urinary Catheter Management: Vazquez: Cath Placed During This Visit: yes Reason for Continuing Indwelling Catheter: Accurate Measurement of Urinary Output in Critically Ill Patients Urinary Catheter Date of Insertion: 10/17/24 Data 10/21/24 03:18 10/22/24 02:22 Micro: Microbiology 10/20/24 15:30 Gram Stain - Final Pleural Fluid Body Fluid Culture - Preliminary A&P Assessment and plan (1) CKD (chronic kidney disease), stage IV: 69-year-old lady 1. HFmrEF 2. Renal patient's creatinine was 1 in April 2023. Her creatinine went up to 1.3 mg/dL in July 2023 by November 2023 creatinine went to 1.7 improved again to 1.3. She is here creatinines been approximately 2 mg/dL in July 2024 and in August her creatinine went up to 2.5 mg/dL and she was admiited w/ a creatinine of 2.7 mg/dL. The patient follows with [facility] Dr. Bey and per patient she was told that she has diabetic nephropathy. Patient's urinalysis had 4+ protein. 1+ glucose. She has 1+ urine blood. She has 3-5 RBCs in the past now 6-10. She also has significant leukocytosis. With trace bacteria. Will send basic serologies. Patient's urine protein creatinine ratio 1 year ago was 2.93 and in July went up to 19. 83. This can be diabetes or concern for other nephrotic syndrome. -serologies are negative -her albumin is 3.3 -cr stablized at 3.2 mg/dl for now -monitor on lower dose diuretics Renal ultrasound right kidney 11 cm, left kidney 11.7 cm there is normal echogenicity. 3. leukocytosis- wbc remains around 10 4. Venous Doppler no acute DVT in right lower extremity. 5. Blood pressure -add losartan 25 mg d and monitor 6. renal bone mineral metabolism- replace vit d. level is 6 pth 90- repeat in 3 months 7. anemia- hgb stable at 11.9 Seen and examined with the nurse using audiovisual equipment. The patient consents to telehealth. Plan Anticoagulation and diuretics. PDMP PDMP Reviewed: Not Reviewed Attestations 2 Medical Necessity Statement*: per hospitalist. she has htn and heriberto and edema Time Spent in Patient Care: 16 - 35 minutes (>than 50% of time sp ent in counselling and/or direct pt care on unit) . Coding Level of Care Code Acute Code for Chg Fwd Diagnoses CKD (chronic kidney disease), stage IV N18.4
[2024-10-22] MEDS: bumetanide 0.25 mg/mL SDV 4 mL 0.5 MG IVP ×2 (08:10→17:58)
[2024-10-22] MEDS: NON-FORMULARY MEDICATION (Galantamine 4 mg tablet) 4 EACH PO ×2 (08:11→17:57)
--- NOTE | 2024-10-22 09:15 | PC.SOCIAL ---
IMM Update pg 2 of IMM updated and reviewed w/ patient. Copy provided and copy dated, initialed and placed in chart.
[2024-10-22 09:49] LABS: Partial Thromboplastin Time 90.6 SECONDS (23.9-36.7)
--- NOTE | 2024-10-22 10:42 | PM.PN ---
Subjective Subjective: Seen this morning. Creatinine 3.1 today. Patient is on room air since last night. This is at rest. I did ask her if she feels better from shortness of breath aspect however she is unable to tell me for sure. She says she cannot walk very far since she is very weak. She is agreeable to work with physical therapy and go to rehab if needed. I discussed with her once again if she would be willing to do a home oxygen evaluation. She had declined this yesterday. She states she will be willing to try today. However she said that there is no way she will take an oxygen tank home. I discussed with her regarding angiogram and her renal function or there is a risks that she may require dialysis if done now that is why we are holding off. She does have diabetic nephropathy and needs to follow-up closely with nephrology as an outpatient. Vitals/I&O/Wt Last Vital Signs Temp 98.1 F 10/22/24 07:19 Pulse 66 10/22/24 09:08 Resp 16 10/22/24 09:08 BP 167/79 10/22/24 08:10 Pulse Ox 95 10/22/24 09:08 O2 Del Method Room Air 10/22/24 09:08 O2 Flow Rate 2 10/21/24 12:00 10/21/24 10/22/24 10/22/24 22:59 06:59 14:59 Intake Total 480 / 720 428.067 / 1148.067 516.8 / 516.8 Output Total 1925 / 1925 650 / 2575 Balance -1445 / -1205 -221.933 / -1426.933 516.8 / 516.8 Weight last 48 hrs Weight 91.127 kg Weight 91.127 kg Weight 93.485 kg Physical Exam Narrative: General: No acute distress, AO x3, appears more euvolemic today. HEENT: PERRLA, pupils bilaterally equal and reactive, pallors not present Chest: Normal vesicular breath sounds, clear to auscultation bilaterally no wheezes no rhonchi no crackles. CVS: S1-S2 regular, no gross murmurs appreciated. Abdomen: Soft, nontender, bowel sounds present Neuro: No focal deficits, no facial deformity, Urinary Catheter Management: Vazquez: Cath Placed During This Visit: yes Reason for Continuing Indwelling Catheter: Accurate Measurement of Urinary Output in Critically Ill Patients Urinary Catheter Date of Insertion: 10/17/24 Data 10/21/24 03:18 10/22/24 02:22 Micro: Microbiology 10/20/24 15:30 Gram Stain - Final Pleural Fluid Body Fluid Culture - Preliminary A&P Assessment and plan (1) Paroxysmal atrial fibrillation: Patient is now in sinus rhythm but due to anasarca and kidney disease I am going to have her admitted for diuresis and consultation with Dr. Masterson the gas engine repairer who I have already called. (2) CKD (chronic kidney disease): Known proteinuria diabetes hypertension. Cannot exclude sleep apnea (3) Acute exacerbation of CHF (congestive heart failure): We know she has diastolic dysfunction with A-fib and also likely pulmonary hypertension with sleep apnea but that is not diagnosed. I recommended that she follow-up for sleep apnea workup (4) CKD (chronic kidney disease), stage IV: Continue with Dr. Masterson. I continued irbesartan for now (5) Type 2 diabetes mellitus: 1600-calorie ADA weight loss diet and sliding scale insulin. Continue home insulin she is on high-dose degludec at 80 units daily (6) Obesity: Counseled regarding weight loss diet I recommend that she start daily weights calorie counting. She may be accounted for further Ozempic but likely at a lower dose and she needs to have her esophageal stricture evaluated (7) History of esophageal stricture: See above needs EGD possibly dilation Plan October 18, 2024 Patient is continued on iv diuresis due to persisting dyspnea and swelling, Bumex increased to 1.5mg iv every 12 hrs. Metoprolol 25 mg BID started today following which HR is better at 68 this evening. Repeat 12 lead EKG. Trop series mildly elevated without significant delta. Discussed with patient undergoing a stress test once euvolemic prior to discharge, however patient states she is extremely hesitant about this as previously she believes one of her friends during a stress test. Kidney function remaining stable today at 2.8. Urine output 1400 cc so far. Closely monitor renal function, continue diuresis until patient is euvolemic. Oxygen supplementation at 3 L/min today. October 19, 2024 Patient continues to be on Bumex, yesterday dose was increased to 1.5 mg IV every 12 hours, however creatinine today has trended up to 3.2. Urine output 1300 cc last 24 hours. Will reduce dose of Bumex to 0.5 mg IV every 12 hours today. Appreciate nephrology recommendations. Patient's persistent shortness of breath in spite of her diuresis may be multifactorial related to pulmonary edema, but also contributed by her pleural effusion. Per personal review of images patient appears to have left-sided pleural effusion. Will obtain CT of the chest to further assess. May need thoracentesis for symptom relief in case of moderate to large effusion. Leukocytosis has resolved today without any directed antibiotics, this makes pneumonia less likely, however CT chest will be further able to assess for this possibility as well. Check D-dimer to screen for PE. If positive to proceed with VQ scan. Dose of Eliquis would need to be increased from 2.5 twice daily to 5 mg twice daily in case patient has a DVT. Lower extremity Doppler was previously negative. Additionally patient's echocardiogram notes a dropped ejection fraction to 45 to 50% with mild global hypokinesia. Potentially may have anginal symptoms, however her symptoms are persistent regardless of any exertion and while laying in bed therefore angina as a source of her dyspnea is considered less likely at this time. Patient takes as needed albuterol inhaler at home. Will add albuterol inhalation for hospital use additionally and assess for improvement. 10/20/2024 vq scan done this morning, result pending plan for thoracentesis today eliquis on hold complains of sob on exertion, hopepfully thoracentesis will help symptoms echo shows reduced EF continue metoprolol 25 bid consult cardiology new onset HF PE not excluded at this time. continue diuretic check labs in AM ct chest shows: possible b/l pneumonia add antibiotics 10/21/2024 Continue ceftriaxone at this time. Complete 7-day course total Consult cardiology today for new onset heart failure. Shortness of breath is improved but not completely resolved at this time. She is currently requiring nasal cannula 2 L. 1 L fluid was removed off of right lung yesterday via thoracentesis. Fluid studies are pending at this time. Left side thoracentesis will be done today. Will place on heparin drip starting 9 PM. Continue to hold off on Eliquis in case of anticipated cardio procedures. Discussed with Dr. Lantigua in detail. Patient will likely require coronary angiogram going forward however we will wait on kidney function to improve. Continue Bumex 1 mg every 12 hours. Continue metoprolol tartrate 25 every 12 hours. Cardiology consulted. Will await recommendations VQ scan does show intermediate probability of PE however clinically I have low suspicion. After thoracentesis her shortness of breath has improved somewhat. Will be placing on a heparin drip for A-fib which will cover for PE as well at this time. 10/22/2024 Continue ceftriaxone to complete 7-day course total. Cardiology consulted. Patient on Bumex 1 mg twice daily at this time. Thoracentesis removed 1 L off of right side and 700 cc removed from left side. Patient has been on heparin drip overnight. This was done in anticipation of any cardiac procedure going forward. However patient's renal function is poor with creatinine of 3.1 today. I will discuss with cardiology. If no plans in the immediate near future we will switch to Eliquis. Continue metoprolol tartrate every 12 hours Patient is now on room air. Check home oxygen evaluation today Check PT OT Patient states that she is very weak. She will most likely be agreeable to rehab if that is required at this point. I will assess and make further recommendations. Will plan for discharge in next 24 to 48 hours. Will discuss with cardiology today for plan of care going forward. PDMP PDMP Reviewed: Not Reviewed Attestations Medical Necessity Statement*: Safe discharge planning, PT OT home oxygen evaluation. Further management plan to be decided with cardiology. Diagnoses Paroxysmal atrial fibrillation I48.0 CKD (chronic kidney disease) N18.9 Acute exacerbation of CHF (congestive heart failure) I50.9 CKD (chronic kidney disease), stage IV N18.4 Type 2 diabetes mellitus E11.9 Obesity E66.9 History of esophageal stricture Z87.19
[2024-10-22 10:43] LABS: Vit D 1,25 (Oh)2, Total 9 pg/mL (18-72); Vit D2 1,25 (Oh)2 <8 pg/mL; Vit D3 1,25 (Oh)2 9 pg/mL
--- NOTE | 2024-10-22 14:52 | P.PN_ITS ---
<Statement entered by Lala Lantigua MD - 10/22/24 19:28> Patient was evaluated and cared for in conjunction with an advanced practice practitioner. I personally examined the patient and reviewed the chart and all pertinent data including imaging, telemetry, and laboratory results. I discussed the patient in detail with the advanced practice practitioner. Please see their note for complete H&P testing result and agreed upon plan of care for the patient. Subjective 2 Subjective: Patient is doing well overall at this time. She is status post left thoracentesis with 700 mL of pleural fluid drained. Blood pressure stable at 135/69. Currently on a heparin drip. No major complaints at this time. Denies chest pain. Creat was 3.2. -1150 over 24 hours. Vitals/I&O/Wt Last Vital Signs Temp 97.8 F 10/22/24 11:09 Pulse 68 10/22/24 11:09 Resp 17 10/22/24 11:09 BP 135/69 10/22/24 11:09 Pulse Ox 96 10/22/24 11:40 O2 Del Method Room Air 10/22/24 09:08 O2 Flow Rate 2 10/21/24 12:00 10/21/24 10/22/24 10/22/24 22:59 06:59 14:59 Intake Total 480 / 720 428.067 / 1148.067 876.8 / 876.8 Output Total 1925 / 1925 650 / 2575 Balance -1445 / -1205 -221.933 / -1426.933 876.8 / 876.8 Weight last 48 hrs Weight 200 lb 14.4 oz Weight 200 lb 14.4 oz Weight 206 lb 1.6 oz Physical Exam 2 Narrative: General: No apparent distress, healthy appearing, well nourished HENMT: normoceophalic Muskuloskeletal: Full ROM Lymphatic: no lymphedema noted Respiratory: Normal respiratory effort, clear to auscultation bilaterally throughout all lung monte, no use of accessory muscles Cardio: No JVD, regular rate, regular rhythm, S1 S2 normal, no murmurs, peripheral pulses 2+ radial palpated bilaterally Extremities: Full ROM, normal, normal capillary refill, no cyanosis, 1+ edema bilateral lower extremities Neuro: Alert and oriented x4, no focal motor deficits Psych: Affect normal, mental status grossly normal Skin: No rashes or lesions noted, no wounds Urinary Catheter Management: Vazquez: Cath Placed During This Visit: yes Reason for Continuing Indwelling Catheter: Accurate Measurement of Urinary Output in Critically Ill Patients Urinary Catheter Date of Insertion: 10/17/24 Data 10/21/24 03:18 10/22/24 02:22 Micro: Microbiology 10/20/24 15:30 Gram Stain - Final Pleural Fluid Body Fluid Culture - Preliminary 10/17/24 11:29 Blood Culture - Final Blood NO GROWTH AFTER 5 DAYS 10/17/24 11:29 Blood Culture - Final Blood NO GROWTH AFTER 5 DAYS A&P Assessment and plan (1) Acute heart failure with mildly reduced ejection fraction (HFmrEF): (2) Essential hypertension: (3) HLD (hyperlipidemia): (4) Atrial fibrillation with rapid ventricular response: (5) Insulin dependent diabetes mellitus: (6) CKD (chronic kidney disease), stage IV: Plan Patient is currently on heparin drip. Recommend continuing x 48 hours. c continue losartan 25 mg, metoprolol 25 every 12, and Bumex 0.5 every 12 per nephrology. She appears euvolemic currently, recommend to continue Bumex monitor renal function and I&O. For further evaluation of new onset CHF, coronary angiogram would be ideal however given renal function and creatinine today of 3.2, would recommend stress test for further evaluation of possible underlying ischemia. Will plan for Entresto and GDMT once renal function allows. Patient agrees. We will try to get this in the morning. PDMP PDMP Reviewed: Not Reviewed Attestations 2 Medical Necessity Statement*: Deferred to primary Coding Level of Care Code Acute Code for Chg Fwd Diagnoses Acute heart failure with mildly reduced ejection fraction (HFmrEF) I50.21 Essential hypertension I10 Hyperlipidemia, unspecified hyperlipidemia type E78.5 Hyperlipidemia type: unspecified Atrial fibrillation with rapid ventricular response I48.91 Insulin dependent diabetes mellitus CKD (chronic kidney disease), stage IV N18.4
--- NOTE | 2024-10-22 14:57 | ECG_ITS ---
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 Interpretive Statements LEXISCAN SESTAMIBI STRESS TEST Procedure: At the baseline, the blood pressure was 153/95 mmHg with a heart rate of 65 bpm. The electrocardiogram showed normal sinus rhythm, right axis deviation, LVH The Lexiscan was infused over a period of 20 seconds. A total of 0.4 mg of Lexiscan was infused. The stress phase was continued for a total of 5 minutes. Heart rate was at the end of stress phase was 73 bpm and a blood pressure of 130/67 mmHg. The EKG at the peak infusion revealed normal sinus rhythm with no significant ST-T wave changes. Sestamibi was injected 20 seconds after the Lexiscan infusion. Blood pressure at the end of recovery phase was 132/64 mmHg with a heart rate of 72 bpm. Conclusion: 1. Normal EKG response to Lexiscan infusion 2. No Lexiscan induced chest pain or cardiac arrhythmia. 3. Normal blood pressure and heart rate response. 4. Sestamibi/sestamibi perfusion scan pending; see separate report. Electronically Signed On 11-01-2024 12:20:23 CDT by Jeevan Stinson M.D. [email or web address]
[2024-10-22 16:42] LABS: Partial Thromboplastin Time 62.0 SECONDS (23.9-36.7)
[2024-10-22] MEDS: cefTRIAXone 1,000 mg SDV 1000 MG IVP (17:58)
[2024-10-22 20:15] LABS: Partial Thromboplastin Time 46.2 SECONDS (23.9-36.7)
[2024-10-22] MEDS: heparin drip 25,000 UNIT/500 ML PREMIX 22 UNIT IV (20:41)
[2024-10-22] MEDS: heparin 5,000 unit/mL INJ 1 mL IVP (20:42)
[2024-10-22 21:35] LABS: Phospholipase A2 Elisa IgG <4 RU/mL; Phospholipase A2 IFA AB NEGATIVE (NEGATIVE)
[2024-10-23] VITALS (14 sets, daily range): BP systolic 118–154; BP diastolic 64–96; PULSE 63–105; RESP 10–19; TEMP 36.4–36.8; O2SAT 91–99
[2024-10-23 03:14] LABS: Hematocrit 35.7 % (36-47); Hemoglobin 11.00 g/dL (11.27-16.99); Mean Corpuscular HGB Conc 30.8 g/dL (30-55); Mean Corpuscular Hemoglobin 27.8 pg (27-33); Mean Corpuscular Volume 90.4 fl (85-98); Nucleated Red Blood Cells % 0 %; Platelet Count 298 10^3/cmm (157-399); Red Blood Count 3.95 10^6/uL (3.85-5.65); White Blood Count 12.00 10^3/uL (3.29-11.43)
[2024-10-23 03:35] LABS: Partial Thromboplastin Time 86.2 SECONDS (23.9-36.7)
[2024-10-23 03:36] LABS: Alanine Aminotransferase 15 U/L (0-33); Albumin Level 2.5 g/dL (3.5-5.2); Alkaline Phosphatase 106 U/L (35-105); Anion Gap 16.4 (5-19); Aspartate Amino Transferase 11 U/L (0-32); Blood Urea Nitrogen 32 mg/dL (8-23); Calcium 8.9 mg/dL (8.5-10.5); Carbon Dioxide 26 mmol/L (22-29); Chloride 104 mmol/L (98-107); Creatinine Clr Calc Pharmacy 17.7299; Globulin 3.3 g/dL (1.3-4.6); Glucose 197 mg/dL (65-115); Magnesium 2.1 mg/dL (1.7-2.3); Osmolality Calculated 306 mOsm/kg (285-295); Potassium 4.4 mmol/L (3.5-5.1); Sodium 142 mmol/L (136-145); Total Protein 5.8 g/dL (6.6-8.7)
--- NOTE | 2024-10-23 06:58 | P.PN_ITS ---
Subjective 2 Subjective: Chronic shortness of breath. Edema much improved. Dyspnea on exertion. Weakness. Medications: Reviewed: Yes Medication Review Details: Current Medications Acetaminophen (Acetaminophen 325 Mg Tablet) 650 mg PO Q6H PRN PRN Reason: Mild/Mod Pain Or Temp >/= 101 Last Admin: 10/19/24 04:44 Dose: 650 mg Albuterol/Ipratropium (Ipratropium-Albuterol 3 Ml Neb) 3 ml INHALATION Q6H.RESP DHRUV Last Admin: 10/23/24 02:16 Dose: 3 ml Aminophylline (Aminophylline 25 Mg/Ml Sdv 20 Ml) 25 mg IVP Q2M PRN PRN Reason: see dose instructions Stop: 10/24/24 06:43 Amlodipine Besylate (Amlodipine 10 Mg Tablet) 5 mg PO DAILY [facility] Last Admin: 10/22/24 08:11 Dose: 5 mg Bumetanide (Bumetanide 0.25 Mg/Ml Sdv 4 Ml) 0.5 mg IVP Q12H [facility] Last Admin: 10/22/24 17:58 Dose: 0.5 mg Ceftriaxone Sodium (Ceftriaxone 1,000 Mg Sdv) 1,000 mg IVP Q24H DHRUV; Protocol Last Admin: 10/22/24 17:58 Dose: 1,000 mg Ezetimibe (Ezetimibe 10 Mg Tablet) 10 mg PO DAILY [facility] Last Admin: 10/22/24 08:11 Dose: 10 mg Ergocalciferol (Ergocalciferol (Vitamin D2) 50,000 Unit Capsule) 50,000 unit PO Q7D [facility] Last Admin: 10/19/24 10:38 Dose: 50,000 unit Gabapentin (Gabapentin 100 Mg Capsule) 100 mg PO BID [facility] Last Admin: 10/22/24 17:59 Dose: 100 mg Glucagon (Glucagon 1 Mg/Ml Kit 1 Ml) 1 mg IM ONCE PRN; Protocol PRN Reason: Adult Acute Hypoglycemia Nursing Prot. Heparin Sodium (Porcine) (Heparin 5,000 Unit/Ml Inj 1 Ml) 0 unit IVP PRN PRN; Protocol PRN Reason: Heparin Weight Based Protocol -Subsequent Bolus Last Admin: 10/22/24 20:42 Dose: 1,900 unit Dextrose (D5w) 500 mls @ 0 mls/hr IV ONCE PRN; Protocol PRN Reason: Adult Acute Hypoglycemia Prot Dextrose (D10w) 125 mls @ 750 mls/hr IV PRN PRN; Protocol PRN Reason: Adult Acute Hypoglycemia Nursing Protocol Dextrose (D10w) 250 mls @ 1,000 mls/hr IV PRN PRN; Protocol PRN Reason: Adult Acute Hypoglycemia Nursing Protocol Heparin Sodium/Sodium Chloride (Heparin Drip) 25,000 unit in 500 mls @ 0 mls/hr IV CONT DHRUV; Protocol Last Titration: 10/23/24 04:09 Dose: 9.63 unit/kg/hr, 18 mls/hr Insulin Human Lispro (Insulin Lispro 100 Unit/1 Ml) 0 unit SUBCUT WM&BEDTIME [facility]; Protocol Last Admin: 10/22/24 21:14 Dose: 12 unit Losartan Potassium (Losartan 50 Mg Tablet) 25 mg PO DAILY [facility] Last Admin: 10/22/24 08:10 Dose: 25 mg Melatonin (Melatonin 3 Mg Tablet) 3 mg PO BEDTIME PRN PRN Reason: INSOMNIA Last Admin: 10/18/24 22:49 Dose: 3 mg Metoprolol Tartrate (Metoprolol Tartrate 25 Mg Tablet) 25 mg PO Q12H [facility] Last Admin: 10/23/24 02:12 Dose: 25 mg Nitroglycerin (Nitroglycerin 0.4 Mg Sublingual Tablet) 0.4 mg SUBLINGUAL Q5M PRN PRN Reason: CHEST PAIN Stop: 10/24/24 06:43 Non-Formulary Medication (Galantamine) 4 mg PO BID [facility] Last Admin: 10/22/24 17:57 Dose: 4 mg Ondansetron HCl (Ondansetron Hcl Odt 4 Mg Tab) 4 mg PO Q6H PRN PRN Reason: NAUSEA AND VOMITING Ondansetron HCl (Ondansetron 2 Mg/Ml Sdv 2 Ml) 4 mg IVP Q8H PRN PRN Reason: vomiting, or N/V if npo Ondansetron HCl (Ondansetron 2 Mg/Ml Sdv 2 Ml) 4 mg IVP Q2M PRN PRN Reason: NAUSEA Pantoprazole Sodium (Pantoprazole Dr 40 Mg Tablet) 40 mg PO DAILY [facility] Last Admin: 10/22/24 08:11 Dose: 40 mg Regadenoson (Regadenoson 0.4 Mg/5 Ml Syringe) 0.4 mg IVP ONCE PRN PRN Reason: Lexiscan Stress Test Vitals/I&O/Wt Last Vital Signs Temp 98.0 F 10/23/24 04:00 Pulse 68 10/23/24 05:19 Resp 14 10/23/24 04:00 BP 154/73 10/23/24 04:00 Pulse Ox 97 10/23/24 04:00 O2 Del Method Room Air 10/23/24 04:00 O2 Flow Rate 2 10/21/24 12:00 10/22/24 10/22/24 10/23/24 14:59 22:59 06:59 Intake Total 876.8 / 876.8 635.133 / 1511.933 284.267 / 1796.200 Output Total 1050 / 1050 450 / 1500 Balance 876.8 / 876.8 -414.867 / 461.933 -165.733 / 296.200 Weight last 48 hrs Weight 90.083 kg Weight 91.127 kg Weight 91.127 kg Physical Exam 2 Narrative: The patient is lying comfortably in bed. Vital signs noted. She is using nasal cannula oxygen. HEENT is normocephalic atraumatic. Neck is supple. Lungs -improved air movement b/l. Heart positive S1-S2 Abdomen soft positive bowel sounds extremities-no significant bilateral leg edema. Neuro awake alert oriented x 3. Moves all extremities. Urinary Catheter Management: Vazquez: Cath Placed During This Visit: yes Reason for Continuing Indwelling Catheter: Accurate Measurement of Urinary Output in Critically Ill Patients Urinary Catheter Date of Insertion: 10/17/24 Data 10/23/24 02:47 10/23/24 02:47 Micro: Microbiology 10/20/24 15:30 Gram Stain - Final Pleural Fluid Body Fluid Culture - Preliminary 10/17/24 11:29 Blood Culture - Final Blood NO GROWTH AFTER 5 DAYS 10/17/24 11:29 Blood Culture - Final Blood NO GROWTH AFTER 5 DAYS A&P Assessment and plan (1) CKD (chronic kidney disease), stage IV: 69-year-old lady 1. HFmrEF the patient has chronic shortness of breath. The patient is for a stress echo. The patient needs cardiac catheterization. The patient is at increased risk for renal failure. However the patient has been explained by her outpatient guest request runner that she is likely progressing towards ESRD. And the patient has significant shortness of breath and dyspnea. If cardiology feels that cardiac catheterization would be beneficial then please hold Bumex and give pericontrast IV fluids as tolerated. The patient understands the renal risks and accepts the need for dialysis if needed. 2. Renal patient's creatinine was 1 in April 2023. Her creatinine went up to 1.3 mg/dL in July 2023 by November 2023 creatinine went to 1.7 improved again to 1.3. She is here creatinines been approximately 2 mg/dL in July 2024 and in August her creatinine went up to 2.5 mg/dL and she was admiited w/ a creatinine of 2.7 mg/dL. The patient follows with [facility] Dr. Bey and per patient she was told that she has diabetic nephropathy. Patient's urinalysis had 4+ protein. 1+ glucose. She has 1+ urine blood. She has 3-5 RBCs in the past now 6-10. She also has significant leukocytosis. With trace bacteria. Will send basic serologies. Patient's urine protein creatinine ratio 1 year ago was 2.93 and in July went up to 19. 83. This can be diabetes or concern for other nephrotic syndrome. -serologies are negative -her albumin is 3.3 -cr stablized at 3.2 mg/dl for now -monitor on lower dose diuretics Renal ultrasound right kidney 11 cm, left kidney 11.7 cm there is normal echogenicity. 3. leukocytosis- wbc are 12. Workup as per primary care physician. 4. Venous Doppler no acute DVT in right lower extremity. 5. Blood pressure -restarted losartan. If she does not need cardiac catheterization can either increase dose of losartan or change to Entresto. If she does need cardiac catheterization would avoid EFRA inhibitor's ARB's at this time. 6. renal bone mineral metabolism- replace vit d. level is 6 pth 90- repeat in 3 months 7. anemia- hgb stable at 11.9 Seen and examined with the nurse using audiovisual equipment. The patient consents to telehealth. Plan Anticoagulation and diuretics. for cardiac stress test PDMP PDMP Reviewed: Not Reviewed Attestations 2 Medical Necessity Statement*: per medicine and cardiology Time Spent in Patient Care: 16 - 35 minutes (>than 50% of time sp ent in counselling and/or direct pt care on unit) . Coding Level of Care Code Acute Code for Chg Fwd Diagnoses CKD (chronic kidney disease), stage IV N18.4
--- NOTE | 2024-10-23 08:09 | PC.NURSE ---
Patient off the floor for nuc med
[2024-10-23] MEDS: bumetanide 0.25 mg/mL SDV 4 mL 0.5 MG IVP ×2 (08:23→20:30)
[2024-10-23] MEDS: NON-FORMULARY MEDICATION (Galantamine 4 mg tablet) 4 EACH PO ×2 (08:24→17:38)
--- NOTE | 2024-10-23 09:47 | P.PN_ITS ---
<Statement entered by Lala Lantigua MD - 10/23/24 13:04> Patient was evaluated and cared for in conjunction with an advanced practice practitioner. I personally examined the patient and reviewed the chart and all pertinent data including imaging, telemetry, and laboratory results. I discussed the patient in detail with the advanced practice practitioner. Please see their note for complete H&P testing result and agreed upon plan of care for the patient. Patient is very nauseated after the stress test possible due to Lexiscan injection Denies any chest pain. Stress test are not to be passed GENERAL: Patient is alert, awake and oriented x3. HEART: Regular S1 and S2. No murmur, rub or gallop. LUNGS: Clear to auscultate bilaterally. CENTRAL NERVOUS SYSTEM: Grossly nonfocal. EXTREMITIES: Lower extremities with out edema bilaterally. New onset of systolic heart failure Moderately severely depressed left ventricular ejection fraction new onset Bilateral pleural effusion status postthoracentesis Abnormal stress test suggestive of ischemia Acute on chronic kidney disease diabetes mellitus Continue current management Will discuss with the patient regarding pros and cons risk-benefit and alternative for the procedure however at this point it appeared to me that patient may will be requiring left heart catheterization. After consultation with patient and nephrology we will further plan and proceed with left heart cath if suggested and agreed by nephrology and patient Subjective 2 Subjective: She underwent stress test this morning, results are pending. She is sitting up in the chair eating breakfast at the time of examination. She reports still feeling weak. Currently 5 L negative cumulative, creatinine 3.3 today. Shortness of breath is improved. Vitals/I&O/Wt Last Vital Signs Temp 98.0 F 10/23/24 04:00 Pulse 105 H 10/23/24 08:00 Resp 13 10/23/24 08:00 BP 118/84 10/23/24 08:23 Pulse Ox 97 10/23/24 08:00 O2 Del Method Room Air 10/23/24 08:00 O2 Flow Rate 2 10/21/24 12:00 10/22/24 10/23/24 10/23/24 22:59 06:59 14:59 Intake Total 635.133 / 1796.200 284.267 / 1796.200 Output Total 1050 / 1500 450 / 1500 Balance -414.867 / 296.200 -165.733 / 296.200 Weight last 48 hrs Weight 198 lb 9.6 oz Weight 200 lb 14.4 oz Weight 200 lb 14.4 oz Physical Exam 2 Const: COMMON NORMALS: no acute distress and patient oriented x3 GENERAL APPEARANCE: cooperative and comfortable ORIENTATION/CONSCIOUSNESS: Yes awake, Yes oriented to person, Yes oriented to place and Yes oriented to time Chest: COMMONS NORMALS: normal inspection of the chest and normal palpation of entire chest wall CHEST: Yes Symmetrical chest wall rise Resp: COMMON NORMALS: normal respiratory effort, No retractions, No use of accessory muscles and clear to auscultation bilaterally EFFORT & INSPECTION: Yes symmetric chest movement AUSCULTATION: clear to auscultation bilaterally Cardio: COMMON NORMALS: regular rate, regular rhythm, S1 normal heart sound present, S2 normal heart sound present, No gallops present (Cardio), No clicks present (Cardio), No murmurs present (Cardio) and No rub (Cardio) RATE: r egular rate RHYTHM: regular rhythm HEART SOUNDS: S1 normal heart sound present and S2 normal heart sound present PERIPHERAL PULSES: radial pulses present Extremity: COMMON NORMALS: no pedal edema Neuro: COMMON NORMALS: patient oriented x3 and moves all extremities S ENSORIUM/ORIENTATION: Yes oriented to person, Yes oriented to place and Yes oriented to time Urinary Catheter Management: Vazquez: Cath Placed During This Visit: yes Reason for Continuing Indwelling Catheter: Accurate Measurement of Urinary Output in Critically Ill Patients Urinary Catheter Date of Insertion: 10/17/24 Data 10/23/24 02:47 10/23/24 02:47 Micro: Microbiology 10/20/24 15:30 Gram Stain - Final Pleural Fluid Body Fluid Culture - Preliminary 10/17/24 11:29 Blood Culture - Final Blood NO GROWTH AFTER 5 DAYS 10/17/24 11:29 Blood Culture - Final Blood NO GROWTH AFTER 5 DAYS A&P Assessment and plan (1) Acute heart failure with mildly reduced ejection fraction (HFmrEF): (2) Paroxysmal atrial fibrillation: (3) Essential hypertension: (4) Insulin dependent diabetes mellitus: (5) CKD (chronic kidney disease), stage IV: Plan Will await stress test results for further plan. She is euvolemic currently. Continue losartan, metoprolol, Bumex, amlodipine. Blood pressure fairly well- controlled. Appears to be in sinus rhythm. PDMP PDMP Reviewed: Not Reviewed Attestations 2 Medical Necessity Statement*: Ischemic workup for reduced LVEF Coding Level of Care Code Acute Code for Chg Fwd Diagnoses Acute heart failure with mildly reduced ejection fraction (HFmrEF) I50.21 Paroxysmal atrial fibrillation I48.0 Essential hypertension I10 Insulin dependent diabetes mellitus CKD (chronic kidney disease), stage IV N18.4
[2024-10-23 10:58] LABS: Partial Thromboplastin Time 47.2 SECONDS (23.9-36.7)
--- NOTE | 2024-10-23 12:25 | P.PN_ITS ---
Subjective 2 Subjective: seen this morning pt returned from stress test, result is pending at this time creatinine is 3.3 Vitals/I&O/Wt Last Vital Signs Temp 97.9 F 10/23/24 11:57 Pulse 88 10/23/24 11:57 Resp 10 L 10/23/24 11:57 BP 127/96 10/23/24 11:57 Pulse Ox 91 10/23/24 11:57 O2 Del Method Room Air 10/23/24 08:00 O2 Flow Rate 2 10/21/24 12:00 10/22/24 10/23/24 10/23/24 22:59 06:59 14:59 Intake Total 635.133 / 1511.933 284.267 / 1796.200 483.9 / 483.9 Output Total 1050 / 1050 450 / 1500 Balance -414.867 / 461.933 -165.733 / 296.200 483.9 / 483.9 Weight last 48 hrs Weight 90.083 kg Weight 91.127 kg Weight 91.127 kg Physical Exam 2 Narrative: General: No acute distress, AO x3, sitting up on chair doing some paperwork HEENT: PERRLA, pupils bilaterally equal and reactive, pallors not present Chest: Normal vesicular breath sounds, clear to auscultation bilaterally no wheezes no rhonchi no crackles. CVS: S1-S2 regular, no gross murmurs appreciated. Abdomen: Soft, nontender, bowel sounds present Neuro: No focal deficits, no facial deformity, Urinary Catheter Management: Vazquez: Cath Placed During This Visit: yes Reason for Continuing Indwelling Catheter: Accurate Measurement of Urinary Output in Critically Ill Patients Urinary Catheter Date of Insertion: 10/17/24 Data 10/23/24 02:47 10/23/24 02:47 Micro: Microbiology 10/20/24 15:30 Gram Stain - Final Pleural Fluid Body Fluid Culture - Final 10/17/24 11:29 Blood Culture - Final Blood NO GROWTH AFTER 5 DAYS 10/17/24 11:29 Blood Culture - Final Blood NO GROWTH AFTER 5 DAYS A&P Assessment and plan (1) Paroxysmal atrial fibrillation: Patient is now in sinus rhythm but due to anasarca and kidney disease I am going to have her admitted for diuresis and consultation with Dr. Masterson the automobile body repairer who I have already called. (2) CKD (chronic kidney disease): Known proteinuria diabetes hypertension. Cannot exclude sleep apnea (3) Acute exacerbation of CHF (congestive heart failure): We know she has diastolic dysfunction with A-fib and also likely pulmonary hypertension with sleep apnea but that is not diagnosed. I recommended that she follow-up for sleep apnea workup (4) CKD (chronic kidney disease), stage IV: Continue with Dr. Masterson. I continued irbesartan for now (5) Type 2 diabetes mellitus: 1600-calorie ADA weight loss diet and sliding scale insulin. Continue home insulin she is on high-dose degludec at 80 units daily (6) Obesity: Counseled regarding weight loss diet I recommend that she start daily weights calorie counting. She may be accounted for further Ozempic but likely at a lower dose and she needs to have her esophageal stricture evaluated (7) History of esophageal stricture: See above needs EGD possibly dilation Plan October 18, 2024 Patient is continued on iv diuresis due to persisting dyspnea and swelling, Bumex increased to 1.5mg iv every 12 hrs. Metoprolol 25 mg BID started today following which HR is better at 68 this evening. Repeat 12 lead EKG. Trop series mildly elevated without significant delta. Discussed with patient undergoing a stress test once euvolemic prior to discharge, however patient states she is extremely hesitant about this as previously she believes one of her friends during a stress test. Kidney function remaining stable today at 2.8. Urine output 1400 cc so far. Closely monitor renal function, continue diuresis until patient is euvolemic. Oxygen supplementation at 3 L/min today. October 19, 2024 Patient continues to be on Bumex, yesterday dose was increased to 1.5 mg IV every 12 hours, however creatinine today has trended up to 3.2. Urine output 1300 cc last 24 hours. Will reduce dose of Bumex to 0.5 mg IV every 12 hours today. Appreciate nephrology recommendations. Patient's persistent shortness of breath in spite of her diuresis may be multifactorial related to pulmonary edema, but also contributed by her pleural effusion. Per personal review of images patient appears to have left-sided pleural effusion. Will obtain CT of the chest to further assess. May need thoracentesis for symptom relief in case of moderate to large effusion. Leukocytosis has resolved today without any directed antibiotics, this makes pneumonia less likely, however CT chest will be further able to assess for this possibility as well. Check D-dimer to screen for PE. If positive to proceed with VQ scan. Dose of Eliquis would need to be increased from 2.5 twice daily to 5 mg twice daily in case patient has a DVT. Lower extremity Doppler was previously negative. Additionally patient's echocardiogram notes a dropped ejection fraction to 45 to 50% with mild global hypokinesia. Potentially may have anginal symptoms, however her symptoms are persistent regardless of any exertion and while laying in bed therefore angina as a source of her dyspnea is considered less likely at this time. Patient takes as needed albuterol inhaler at home. Will add albuterol inhalation for hospital use additionally and assess for improvement. 10/20/2024 vq scan done this morning, result pending plan for thoracentesis today eliquis on hold complains of sob on exertion, hopepfully thoracentesis will help symptoms echo shows reduced EF continue metoprolol 25 bid consult cardiology new onset HF PE not excluded at this time. continue diuretic check labs in AM ct chest shows: possible b/l pneumonia add antibiotics 10/21/2024 Continue ceftriaxone at this time. Complete 7-day course total Consult cardiology today for new onset heart failure. Shortness of breath is improved but not completely resolved at this time. She is currently requiring nasal cannula 2 L. 1 L fluid was removed off of right lung yesterday via thoracentesis. Fluid studies are pending at this time. Left side thoracentesis will be done today. Will place on heparin drip starting 9 PM. Continue to hold off on Eliquis in case of anticipated cardio procedures. Discussed with Dr. Lantigua in detail. Patient will likely require coronary angiogram going forward however we will wait on kidney function to improve. Continue Bumex 1 mg every 12 hours. Continue metoprolol tartrate 25 every 12 hours. Cardiology consulted. Will await recommendations VQ scan does show intermediate probability of PE however clinically I have low suspicion. After thoracentesis her shortness of breath has improved somewhat. Will be placing on a heparin drip for A-fib which will cover for PE as well at this time. 10/22/2024 Continue ceftriaxone to complete 7-day course total. Cardiology consulted. Patient on Bumex 1 mg twice daily at this time. Thoracentesis removed 1 L off of right side and 700 cc removed from left side. Patient has been on heparin drip overnight. This was done in anticipation of any cardiac procedure going forward. However patient's renal function is poor with creatinine of 3.1 today. I will discuss with cardiology. If no plans in the immediate near future we will switch to Eliquis. Continue metoprolol tartrate every 12 hours Patient is now on room air. Check home oxygen evaluation today Check PT OT Patient states that she is very weak. She will most likely be agreeable to rehab if that is required at this point. I will assess and make further recommendations. Will plan for discharge in next 24 to 48 hours. Will discuss with cardiology today for plan of care going forward. 10/23/2024 pt is on room air and on heparin drip pt s/p thoracentesis stress test done this morning further recommendations from cardiology after stress test ceftriaxone day 4 today. complete 7 days total [place] going [place] PDMP PDMP Reviewed: Not Reviewed Attestations 2 Medical Necessity Statement*: stress test today Diagnoses Paroxysmal atrial fibrillation I48.0 CKD (chronic kidney disease) N18.9 Acute exacerbation of CHF (congestive heart failure) I50.9 CKD (chronic kidney disease), stage IV N18.4 Type 2 diabetes mellitus E11.9 Obesity E66.9 History of esophageal stricture Z87.19
--- NOTE | 2024-10-23 14:57 | NMCV_ITS ---
NM danna perf SPECT r/s* [id number] Sandra Lemus Age: 69 Gender: F : 1955 Exam Date: 10/23/2024 06:36 Ordering Phys: Mariana Galloway NP Technologist: YUMI Alegria Exam Location: [facility] Indications: CP STRESS TEST Please see separate stress test report in [facility] for full findings IMAGE PROTOCOL Rest/Stress 1 Lexiscan Day Radiopharmaceutical Dose (mCi) Administration Site Administered by Rest: Tc-99m 11.0 IV YUMI Alegria Sestamibi Stress:Tc-99m 33.0 IV YUMI Alegria Sestamibi Rest: 23-Oct-2024 60 Discovery 630 Stress: 23-Oct-2024 30 Discovery 630 0.4mg Lexiscan. Supine position only as patient was unable to lay prone. SPECT RESULTS Technical Quality: Good Raw Data Analysis: Normal Image Corrections: No attenuation or motion correction applied Summed Stress Score: 10 Summed Rest Score: 5 Summed Difference Score: 5 PERFUSION FINDINGS Large area of moderate intensity, partially reversible perfusion defect seen in the inferior and inferolateral garcia. This is consistent with a large area of prior infarct with medium sized area of milagros-infarct ischemia in the RCA and left complex artery territories. Prone imaging not performed. FUNCTIONAL RESULTS (calculated via Gated SPECT) Stress Image LV EF (%): 42 Stress EDV (mL):147 TID: 0.93 Stress ESV (mL):85 FUNCTIONAL FINDINGS: LV systolic function is mildly reduced IMPRESSIONS 1. Abnormal myocardial perfusion imaging with large sized area of prior infarct with medium sized area of milagros-infarct ischemia seen in left circumflex artery and RCA territories. Prone imaging could not be performed that reduces specificity of the test. Clinical correlation is required. 2. LV systolic function is mildly reduced. Jeevan Stinson MD (Electronically Signed) Final Date: 23 October 2024 10:20 S
[2024-10-23 17:17] LABS: Partial Thromboplastin Time 61.0 SECONDS (23.9-36.7)
[2024-10-23] MEDS: cefTRIAXone 1,000 mg SDV 1000 MG IVP (17:38)
[2024-10-23] MEDS: ondansetron 2 mg/ML SDV 2 mL 4 MG IVP (17:48)
[2024-10-23] MEDS: heparin drip 25,000 UNIT/500 ML PREMIX 20 UNIT IV (20:31)
[2024-10-23 23:45] LABS: Partial Thromboplastin Time 60.4 SECONDS (23.9-36.7)
[2024-10-24] VITALS (9 sets, daily range): BP systolic 120–154; BP diastolic 63–89; PULSE 62–116; RESP 10–20; TEMP 36.6–36.8; O2SAT 91–99
[2024-10-24 06:53] LABS: Hematocrit 37.4 % (36-47); Hemoglobin 11.20 g/dL (11.27-16.99); Mean Corpuscular HGB Conc 29.9 g/dL (30-55); Mean Corpuscular Hemoglobin 27.8 pg (27-33); Mean Corpuscular Volume 92.8 fl (85-98); Nucleated Red Blood Cells % 0 %; Platelet Count 276 10^3/cmm (157-399); Red Blood Count 4.03 10^6/uL (3.85-5.65); White Blood Count 13.03 10^3/uL (3.29-11.43)
[2024-10-24 07:02] LABS: Partial Thromboplastin Time 66.4 SECONDS (23.9-36.7)
[2024-10-24 07:05] LABS: Alanine Aminotransferase 12 U/L (0-33); Albumin Level 2.5 g/dL (3.5-5.2); Alkaline Phosphatase 92 U/L (35-105); Anion Gap 15.6 (5-19); Aspartate Amino Transferase 10 U/L (0-32); Blood Urea Nitrogen 41 mg/dL (8-23); Calcium 9.0 mg/dL (8.5-10.5); Carbon Dioxide 25 mmol/L (22-29); Chloride 104 mmol/L (98-107); Creatinine Clr Calc Pharmacy 18.1042; Globulin 3.3 g/dL (1.3-4.6); Glucose 153 mg/dL (65-115); Magnesium 2.1 mg/dL (1.7-2.3); Osmolality Calculated 303 mOsm/kg (285-295); Potassium 4.6 mmol/L (3.5-5.1); Sodium 140 mmol/L (136-145); Total Protein 5.8 g/dL (6.6-8.7)
--- NOTE | 2024-10-24 08:01 | PM.PN ---
Subjective Subjective: weak, sob, insomnia. nausea and GERD Medications: Reviewed: Yes Medication Review Details: Current Medications Acetaminophen (Acetaminophen 325 Mg Tablet) 650 mg PO Q6H PRN PRN Reason: Mild/Mod Pain Or Temp >/= 101 Last Admin: 10/19/24 04:44 Dose: 650 mg Albuterol/Ipratropium (Ipratropium-Albuterol 3 Ml Neb) 3 ml INHALATION Q6H.RESP PRN PRN Reason: SHORTNESS OF BREATH Amlodipine Besylate (Amlodipine 10 Mg Tablet) 5 mg PO DAILY [facility] Last Admin: 10/23/24 08:23 Dose: 5 mg Bumetanide (Bumetanide 0.25 Mg/Ml Sdv 4 Ml) 0.5 mg IVP Q12H [facility] Last Admin: 10/23/24 20:30 Dose: 0.5 mg Ceftriaxone Sodium (Ceftriaxone 1,000 Mg Sdv) 1,000 mg IVP Q24H [facility]; Protocol Last Admin: 10/23/24 17:38 Dose: 1,000 mg Ezetimibe (Ezetimibe 10 Mg Tablet) 10 mg PO DAILY [facility] Last Admin: 10/23/24 08:24 Dose: 10 mg Ergocalciferol (Ergocalciferol (Vitamin D2) 50,000 Unit Capsule) 50,000 unit PO Q7D [facility] Last Admin: 10/19/24 10:38 Dose: 50,000 unit Gabapentin (Gabapentin 100 Mg Capsule) 100 mg PO BID [facility] Last Admin: 10/23/24 17:39 Dose: 100 mg Glucagon (Glucagon 1 Mg/Ml Kit 1 Ml) 1 mg IM ONCE PRN; Protocol PRN Reason: Adult Acute Hypoglycemia Nursing Prot. Heparin Sodium (Porcine) (Heparin 5,000 Unit/Ml Inj 1 Ml) 0 unit IVP PRN PRN; Protocol PRN Reason: Heparin Weight Based Protocol -Subsequent Bolus Last Admin: 10/22/24 20:42 Dose: 1,900 unit Dextrose (D5w) 500 mls @ 0 mls/hr IV ONCE PRN; Protocol PRN Reason: Adult Acute Hypoglycemia Prot Dextrose (D10w) 125 mls @ 750 mls/hr IV PRN PRN; Protocol PRN Reason: Adult Acute Hypoglycemia Nursing Protocol Dextrose (D10w) 250 mls @ 1,000 mls/hr IV PRN PRN; Protocol PRN Reason: Adult Acute Hypoglycemia Nursing Protocol Heparin Sodium/Sodium Chloride (Heparin Drip) 25,000 unit in 500 mls @ 0 mls/hr IV CONT [facility]; Protocol Last Titration: 10/24/24 07:24 Dose: 10.7 unit/kg/hr, 20 mls/hr Insulin Human Lispro (Insulin Lispro 100 Unit/1 Ml) 0 unit SUBCUT WM&BEDTIME [facility]; Protocol Last Admin: 10/23/24 22:22 Dose: 10 unit Losartan Potassium (Losartan 50 Mg Tablet) 25 mg PO DAILY [facility] Last Admin: 10/23/24 08:23 Dose: 25 mg Melatonin (Melatonin 3 Mg Tablet) 3 mg PO BEDTIME PRN PRN Reason: INSOMNIA Last Admin: 10/18/24 22:49 Dose: 3 mg Metoprolol Tartrate (Metoprolol Tartrate 25 Mg Tablet) 25 mg PO Q12H [facility] Last Admin: 10/24/24 00:39 Dose: 25 mg Non-Formulary Medication (Galantamine) 4 mg PO BID [facility] Last Admin: 10/23/24 17:38 Dose: 4 mg Ondansetron HCl (Ondansetron Hcl Odt 4 Mg Tab) 4 mg PO Q6H PRN PRN Reason: NAUSEA AND VOMITING Ondansetron HCl (Ondansetron 2 Mg/Ml Sdv 2 Ml) 4 mg IVP Q8H PRN PRN Reason: vomiting, or N/V if npo Last Admin: 10/23/24 17:48 Dose: 4 mg Ondansetron HCl (Ondansetron 2 Mg/Ml Sdv 2 Ml) 4 mg IVP Q2M PRN PRN Reason: NAUSEA Pantoprazole Sodium (Pantoprazole Dr 40 Mg Tablet) 40 mg PO DAILY [facility] Last Admin: 10/23/24 08:24 Dose: 40 mg Vitals/I&O/Wt Last Vital Signs Temp 98.3 F 10/24/24 00:00 Pulse 65 10/24/24 05:50 Resp 10 L 10/24/24 05:50 BP 146/73 10/24/24 05:50 Pulse Ox 96 10/24/24 05:50 O2 Del Method Room Air 10/24/24 00:00 O2 Flow Rate 2 10/21/24 12:00 10/23/24 10/24/24 10/24/24 22:59 06:59 14:59 Intake Total 429.666 / 1153.566 25 / 1178.566 217.667 / 217.667 Output Total 1250 / 1250 600 / 1850 Balance -820.334 / -96.434 -575 / -671.434 217.667 / 217.667 Weight last 48 hrs Weight 94.71 kg Weight 90.083 kg Physical Exam Narrative: The patient is lying comfortably in bed. Vital signs noted. She is using nasal cannula oxygen. HEENT is normocephalic atraumatic. Neck is supple. Lungs -improved air movement b/l. Heart positive S1-S2, tachycardia Abdomen soft positive bowel sounds extremities-1 + bilateral leg edema. Neuro awake alert oriented x 3. Moves all extremities. 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 The patient is s/p stress echo on 10/23/24 -pt is for cardiac catheterization. The patient is at increased risk for renal failure. However the patient has been explained by her outpatient furnace repairer helper that she is likely progressing towards ESRD. And the patient has significant shortness of breath and dyspnea. If cardiology feels that cardiac catheterization would be beneficial then please hold Bumex and give pericontrast IV fluids as tolerated. The patient understands the renal risks and accepts the need for dialysis if needed. 2. Renal patient's creatinine was 1 in April 2023. Her creatinine went up to 1.3 mg/dL in July 2023 by November 2023 creatinine went to 1.7 improved again to 1.3. She is here creatinines been approximately 2 mg/dL in July 2024 and in August her creatinine went up to 2.5 mg/dL and she was admiited w/ a creatinine of 2.7 mg/dL. The patient follows with [facility] Dr. Bey and per patient she was told that she has diabetic nephropathy. Patient's urinalysis had 4+ protein. 1+ glucose. She has 1+ urine blood. She has 3-5 RBCs in the past now 6-10. She also has significant leukocytosis. With trace bacteria. Will send basic serologies. Patient's urine protein creatinine ratio 1 year ago was 2.93 and in July went up to 19. 83. This can be diabetes or concern for other nephrotic syndrome. -serologies are negative -her albumin is 3.3 -cr stablized at 3.2 mg/dl for now -monitor on lower dose diuretics Renal ultrasound right kidney 11 cm, left kidney 11.7 cm there is normal echogenicity. -monitor renal fxn after cath 3. leukocytosis- wbc are 13. Workup as per ID and hospitalist. 4. Venous Doppler no acute DVT in right lower extremity. 5. Blood pressure -improved- hold losartan as for cardiac catheterization 6. renal bone mineral metabolism- replace vit d. level is 6 pth 90- repeat in 3 months 7. anemia- hgb stable at 11.9 Seen and examined with the nurse using audiovisual equipment. The patient consents to telehealth. Plan Anticoagulation and diuretics. for cardiac cath PDMP PDMP Reviewed: Not Reviewed Attestations Medical Necessity Statement*: SOB, CKD 4, obesity, weak, nausea Time Spent in Patient Care: 16 - 35 minutes (>than 50% of time spent in counselling and/or direct pt care on unit). Coding Level of Care Code Acute Code for Chg Fwd Diagnoses CKD (chronic kidney disease), stage IV N18.4
--- NOTE | 2024-10-24 08:20 | PC.SOCIAL ---
IMM Update Pg. 2 of IMM Updated and copy provided at bedside.
[2024-10-24] MEDS: NON-FORMULARY MEDICATION (Galantamine 4 mg tablet) 4 EACH PO ×2 (08:36→17:09)
--- NOTE | 2024-10-24 11:13 | P.PN_ITS ---
Subjective 2 Subjective: seen this morning no acute events overnight plan for cath this am however iv been told there was some issue with sleep lab technologist so procedure has been delayed. Vitals/I&O/Wt Last Vital Signs Temp 97.8 F 10/24/24 08:00 Pulse 94 10/24/24 08:00 Resp 16 10/24/24 08:00 BP 120/88 10/24/24 08:00 Pulse Ox 92 10/24/24 08:00 O2 Del Method Nasal Cannula 10/24/24 08:00 O2 Flow Rate 2 10/24/24 08:00 10/23/24 10/24/24 10/24/24 22:59 06:59 14:59 Intake Total 429.666 / 1153.566 25 / 1178.566 217.667 / 217.667 Output Total 1250 / 1250 600 / 1850 Balance -820.334 / -96.434 -575 / -671.434 217.667 / 217.667 Weight last 48 hrs Weight 94.71 kg Weight 90.083 kg Physical Exam 2 Narrative: General: No acute distress, AO x3, pt on 2L NC HEENT: PERRLA, pupils bilaterally equal and reactive, pallors not present Chest: Normal vesicular breath sounds, clear to auscultation bilaterally no wheezes no rhonchi no crackles. CVS: S1-S2 regular, no gross murmurs appreciated. Abdomen: Soft, nontender, bowel sounds present Neuro: No focal deficits, no facial deformity, Urinary Catheter Management: Vazquez: Cath Placed During This Visit: yes Reason for Continuing Indwelling Catheter: Acute Urinary Retention or Obstruction Urinary Catheter Date of Insertion: 10/17/24 Data 10/24/24 06:29 10/24/24 06:29 Micro: Microbiology 10/20/24 15:30 Gram Stain - Final Pleural Fluid Body Fluid Culture - Final A&P Assessment and plan (1) Paroxysmal atrial fibrillation: Patient is now in sinus rhythm but due to anasarca and kidney disease I am going to have her admitted for diuresis and consultation with Dr. Masterson the sticker machine operator who I have already called. (2) CKD (chronic kidney disease): Known proteinuria diabetes hypertension. Cannot exclude sleep apnea (3) Acute exacerbation of CHF (congestive heart failure): We know she has diastolic dysfunction with A-fib and also likely pulmonary hypertension with sleep apnea but that is not diagnosed. I recommended that she follow-up for sleep apnea workup (4) CKD (chronic kidney disease), stage IV: Continue with Dr. Masterson. I continued irbesartan for now (5) Type 2 diabetes mellitus: 1600-calorie ADA weight loss diet and sliding scale insulin. Continue home insulin she is on high-dose degludec at 80 units daily (6) Obesity: Counseled regarding weight loss diet I recommend that she start daily weights calorie counting. She may be accounted for further Ozempic but likely at a lower dose and she needs to have her esophageal stricture evaluated (7) History of esophageal stricture: See above needs EGD possibly dilation Plan October 18, 2024 Patient is continued on iv diuresis due to persisting dyspnea and swelling, Bumex increased to 1.5mg iv every 12 hrs. Metoprolol 25 mg BID started today following which HR is better at 68 this evening. Repeat 12 lead EKG. Trop series mildly elevated without significant delta. Discussed with patient undergoing a stress test once euvolemic prior to discharge, however patient states she is extremely hesitant about this as previously she believes one of her friends during a stress test. Kidney function remaining stable today at 2.8. Urine output 1400 cc so far. Closely monitor renal function, continue diuresis until patient is euvolemic. Oxygen supplementation at 3 L/min today. October 19, 2024 Patient continues to be on Bumex, yesterday dose was increased to 1.5 mg IV every 12 hours, however creatinine today has trended up to 3.2. Urine output 1300 cc last 24 hours. Will reduce dose of Bumex to 0.5 mg IV every 12 hours today. Appreciate nephrology recommendations. Patient's persistent shortness of breath in spite of her diuresis may be multifactorial related to pulmonary edema, but also contributed by her pleural effusion. Per personal review of images patient appears to have left-sided pleural effusion. Will obtain CT of the chest to further assess. May need thoracentesis for symptom relief in case of moderate to large effusion. Leukocytosis has resolved today without any directed antibiotics, this makes pneumonia less likely, however CT chest will be further able to assess for this possibility as well. Check D-dimer to screen for PE. If positive to proceed with VQ scan. Dose of Eliquis would need to be increased from 2.5 twice daily to 5 mg twice daily in case patient has a DVT. Lower extremity Doppler was previously negative. Additionally patient's echocardiogram notes a dropped ejection fraction to 45 to 50% with mild global hypokinesia. Potentially may have anginal symptoms, however her symptoms are persistent regardless of any exertion and while laying in bed therefore angina as a source of her dyspnea is considered less likely at this time. Patient takes as needed albuterol inhaler at home. Will add albuterol inhalation for hospital use additionally and assess for improvement. 10/20/2024 vq scan done this morning, result pending plan for thoracentesis today eliquis on hold complains of sob on exertion, hopepfully thoracentesis will help symptoms echo shows reduced EF continue metoprolol 25 bid consult cardiology new onset HF PE not excluded at this time. continue diuretic check labs in AM ct chest shows: possible b/l pneumonia add antibiotics 10/21/2024 Continue ceftriaxone at this time. Complete 7-day course total Consult cardiology today for new onset heart failure. Shortness of breath is improved but not completely resolved at this time. She is currently requiring nasal cannula 2 L. 1 L fluid was removed off of right lung yesterday via thoracentesis. Fluid studies are pending at this time. Left side thoracentesis will be done today. Will place on heparin drip starting 9 PM. Continue to hold off on Eliquis in case of anticipated cardio procedures. Discussed with Dr. Lantigua in detail. Patient will likely require coronary angiogram going forward however we will wait on kidney function to improve. Continue Bumex 1 mg every 12 hours. Continue metoprolol tartrate 25 every 12 hours. Cardiology consulted. Will await recommendations VQ scan does show intermediate probability of PE however clinically I have low suspicion. After thoracentesis her shortness of breath has improved somewhat. Will be placing on a heparin drip for A-fib which will cover for PE as well at this time. 10/22/2024 Continue ceftriaxone to complete 7-day course total. Cardiology consulted. Patient on Bumex 1 mg twice daily at this time. Thoracentesis removed 1 L off of right side and 700 cc removed from left side. Patient has been on heparin drip overnight. This was done in anticipation of any cardiac procedure going forward. However patient's renal function is poor with creatinine of 3.1 today. I will discuss with cardiology. If no plans in the immediate near future we will switch to Eliquis. Continue metoprolol tartrate every 12 hours Patient is now on room air. Check home oxygen evaluation today Check PT OT Patient states that she is very weak. She will most likely be agreeable to rehab if that is required at this point. I will assess and make further recommendations. Will plan for discharge in next 24 to 48 hours. Will discuss with cardiology today for plan of care going forward. 10/23/2024 pt is on room air and on heparin drip pt s/p thoracentesis stress test done this morning further recommendations from cardiology after stress test ceftriaxone day 4 today. complete 7 days total pt will be going to [facility] 10/24/2024 cardio has recommended angiogram plan for sunday on 2L NC today continue diuretics continue heparin drip will discuss with cardiology cr 3 range today PDMP PDMP Reviewed: Not Reviewed Attestations 2 Medical Necessity Statement*: needs cath prior to dc plan for sunday Diagnoses Paroxysmal atrial fibrillation I48.0 CKD (chronic kidney disease) N18.9 Acute exacerbation of CHF (congestive heart failure) I50.9 CKD (chronic kidney disease), stage IV N18.4 Type 2 diabetes mellitus E11.9 Obesity E66.9 History of esophageal stricture Z87.19
--- NOTE | 2024-10-24 16:40 | P.PN_ITS ---
Subjective 2 Subjective: Denies any complaint. Medications: Reviewed: Yes Medication Review Details: Current Medications Acetaminophen (Acetaminophen 325 Mg Tablet) 650 mg PO Q6H PRN PRN Reason: Mild/Mod Pain Or Temp >/= 101 Last Admin: 10/19/24 04:44 Dose: 650 mg Albuterol/Ipratropium (Ipratropium-Albuterol 3 Ml Neb) 3 ml INHALATION Q6H.RESP PRN PRN Reason: SHORTNESS OF BREATH Amlodipine Besylate (Amlodipine 10 Mg Tablet) 5 mg PO DAILY [facility] Last Admin: 10/23/24 08:23 Dose: 5 mg Bumetanide (Bumetanide 0.25 Mg/Ml Sdv 4 Ml) 0.5 mg IVP Q12H [facility] Last Admin: 10/23/24 20:30 Dose: 0.5 mg Ceftriaxone Sodium (Ceftriaxone 1,000 Mg Sdv) 1,000 mg IVP Q24H [facility]; Protocol Last Admin: 10/23/24 17:38 Dose: 1,000 mg Ezetimibe (Ezetimibe 10 Mg Tablet) 10 mg PO DAILY [facility] Last Admin: 10/23/24 08:24 Dose: 10 mg Ergocalciferol (Ergocalciferol (Vitamin D2) 50,000 Unit Capsule) 50,000 unit PO Q7D [facility] Last Admin: 10/19/24 10:38 Dose: 50,000 unit Gabapentin (Gabapentin 100 Mg Capsule) 100 mg PO BID [facility] Last Admin: 10/23/24 17:39 Dose: 100 mg Glucagon (Glucagon 1 Mg/Ml Kit 1 Ml) 1 mg IM ONCE PRN; Protocol PRN Reason: Adult Acute Hypoglycemia Nursing Prot. Heparin Sodium (Porcine) (Heparin 5,000 Unit/Ml Inj 1 Ml) 0 unit IVP PRN PRN; Protocol PRN Reason: Heparin Weight Based Protocol -Subsequent Bolus Last Admin: 10/22/24 20:42 Dose: 1,900 unit Dextrose (D5w) 500 mls @ 0 mls/hr IV ONCE PRN; Protocol PRN Reason: Adult Acute Hypoglycemia Prot Dextrose (D10w) 125 mls @ 750 mls/hr IV PRN PRN; Protocol PRN Reason: Adult Acute Hypoglycemia Nursing Protocol Dextrose (D10w) 250 mls @ 1,000 mls/hr IV PRN PRN; Protocol PRN Reason: Adult Acute Hypoglycemia Nursing Protocol Heparin Sodium/Sodium Chloride (Heparin Drip) 25,000 unit in 500 mls @ 0 mls/hr IV CONT [facility]; Protocol Last Titration: 10/24/24 07:24 Dose: 10.7 unit/kg/hr, 20 mls/hr Insulin Human Lispro (Insulin Lispro 100 Unit/1 Ml) 0 unit SUBCUT WM&BEDTIME [facility]; Protocol Last Admin: 10/23/24 22:22 Dose: 10 unit Losartan Potassium (Losartan 50 Mg Tablet) 25 mg PO DAILY [facility] Last Admin: 10/23/24 08:23 Dose: 25 mg Melatonin (Melatonin 3 Mg Tablet) 3 mg PO BEDTIME PRN PRN Reason: INSOMNIA Last Admin: 10/18/24 22:49 Dose: 3 mg Metoprolol Tartrate (Metoprolol Tartrate 25 Mg Tablet) 25 mg PO Q12H [facility] Last Admin: 10/24/24 00:39 Dose: 25 mg Non-Formulary Medication (Galantamine) 4 mg PO BID [facility] Last Admin: 10/23/24 17:38 Dose: 4 mg Ondansetron HCl (Ondansetron Hcl Odt 4 Mg Tab) 4 mg PO Q6H PRN PRN Reason: NAUSEA AND VOMITING Ondansetron HCl (Ondansetron 2 Mg/Ml Sdv 2 Ml) 4 mg IVP Q8H PRN PRN Reason: vomiting, or N/V if npo Last Admin: 10/23/24 17:48 Dose: 4 mg Ondansetron HCl (Ondansetron 2 Mg/Ml Sdv 2 Ml) 4 mg IVP Q2M PRN PRN Reason: NAUSEA Pantoprazole Sodium (Pantoprazole Dr 40 Mg Tablet) 40 mg PO DAILY [facility] Last Admin: 10/23/24 08:24 Dose: 40 mg Vitals/I&O/Wt Last Vital Signs Temp 97.8 F 10/24/24 16:00 Pulse 64 10/24/24 16:00 Resp 13 10/24/24 16:00 BP 147/79 10/24/24 16:00 Pulse Ox 91 10/24/24 16:00 O2 Del Method Room Air 10/24/24 16:00 O2 Flow Rate 2 10/24/24 08:00 10/24/24 10/24/24 10/24/24 06:59 14:59 22:59 Intake Total 25 / 1178.566 337.667 / 337.667 Output Total 600 / 1850 550 / 550 Balance -575 / -671.434 -212.333 / -212.333 Weight last 48 hrs Weight 208 lb 12.8 oz Weight 198 lb 9.6 oz Physical Exam 2 Const: OTHER: GENERAL: Patient is alert, awake and oriented x3. HEART: Regular S1 and S2. No murmur, rub or gallop. LUNGS: Clear to auscultate bilaterally. CENTRAL NERVOUS SYSTEM: Grossly nonfocal. EXTREMITIES: Lower extremities with out edema bilaterally. Urinary Catheter Management: Vazquez: Cath Placed During This Visit: yes Reason for Continuing Indwelling Catheter: Acute Urinary Retention or Obstruction Urinary Catheter Date of Insertion: 10/17/24 Data 10/24/24 06:29 10/24/24 06:29 A&P Assessment and plan (1) Acute heart failure with mildly reduced ejection fraction (HFmrEF): (2) Paroxysmal atrial fibrillation: (3) Essential hypertension: (4) Insulin dependent diabetes mellitus: (5) CKD (chronic kidney disease), stage IV: Plan Stress test turns out to be positive however because of not availability of Professional Nursing Assistant due to technical problem until Sunday I have offered patient to extend her stay to the Sunday at that time we will proceed with left heart cath however patient would like to go to correction at home and would like to get it done as an outpatient. Since she is stable denies any complaint such as chest pain and she is not compensated state of heart failure we agree with discharging patient to the correction and schedule her as an outpatient for left heart catheterization for possible stress test new onset of heart failure.Patient clearly understand high risk for contrast-induced nephropathy leading to temporary or permanent renal failure requiring dialysis. Plan continue beta-venkata Add isosorbide mononitrate 30 mg p.o. daily Bumex 1 mg p.o. daily Load patient with 300 mg of Plavix today and continue 75 mg from tomorrow Hold aspirin since patient will be on Eliquis for atrial fibrillation Add pantoprazole to the regimen. Hydralazine 25 mg p.o. 3 times daily since cannot start patient on EFRA or ARB due to underlying renal dysfunction Plan for left heart catheterization as an outpatient for new onset of heart failure abnormal stress test in [address] Lantigua Follow-up with cardiology nurse practitioner in 10 days PDMP PDMP Reviewed: Not Reviewed Attestations 2 Medical Necessity Statement*: As per medicine Coding Level of Care Code Acute Code for Chg Fwd Diagnoses Acute heart failure with mildly reduced ejection fraction (HFmrEF) I50.21 Paroxysmal atrial fibrillation I48.0 Essential hypertension I10 Insulin dependent diabetes mellitus CKD (chronic kidney disease), stage IV N18.4
[2024-10-24 16:49] LABS: Partial Thromboplastin Time 56.2 SECONDS (23.9-36.7)
[2024-10-24] MEDS: heparin drip 25,000 UNIT/500 ML PREMIX 20 UNIT IV (17:08)
[2024-10-24] MEDS: cefTRIAXone 1,000 mg SDV 1000 MG IVP (17:10)
[2024-10-25] VITALS (7 sets, daily range): BP systolic 122–152; BP diastolic 65–80; PULSE 63–105; RESP 12–23; TEMP 36.4–36.8; O2SAT 94–97
[2024-10-25 04:19] LABS: Hematocrit 33.9 % (36-47); Hemoglobin 10.30 g/dL (11.27-16.99); Mean Corpuscular HGB Conc 30.4 g/dL (30-55); Mean Corpuscular Hemoglobin 27.8 pg (27-33); Mean Corpuscular Volume 91.4 fl (85-98); Nucleated Red Blood Cells % 0 %; Platelet Count 283 10^3/cmm (157-399); Red Blood Count 3.71 10^6/uL (3.85-5.65); White Blood Count 12.66 10^3/uL (3.29-11.43)
[2024-10-25 04:28] LABS: Partial Thromboplastin Time 53.8 SECONDS (23.9-36.7)
[2024-10-25 04:43] LABS: Alanine Aminotransferase 12 U/L (0-33); Albumin Level 2.5 g/dL (3.5-5.2); Alkaline Phosphatase 101 U/L (35-105); Anion Gap 14.8 (5-19); Aspartate Amino Transferase 14 U/L (0-32); Blood Urea Nitrogen 39 mg/dL (8-23); Calcium 8.9 mg/dL (8.5-10.5); Carbon Dioxide 26 mmol/L (22-29); Chloride 103 mmol/L (98-107); Creatinine Clr Calc Pharmacy 18.1042; Globulin 3.4 g/dL (1.3-4.6); Glucose 250 mg/dL (65-115); Magnesium 2.1 mg/dL (1.7-2.3); Osmolality Calculated 306 mOsm/kg (285-295); Potassium 4.8 mmol/L (3.5-5.1); Sodium 139 mmol/L (136-145); Total Protein 5.9 g/dL (6.6-8.7)
[2024-10-25] MEDS: heparin 5,000 unit/mL INJ 1 mL IVP (04:50)
[2024-10-25] MEDS: NON-FORMULARY MEDICATION (Galantamine 4 mg tablet) 4 EACH PO ×2 (07:08→17:25)
--- NOTE | 2024-10-25 08:35 | PC.NURSE ---
This RN present with student during medication passes. Student performed appropriately using all rights and identifiers.
[2024-10-25 11:26] LABS: Partial Thromboplastin Time 61.2 SECONDS (23.9-36.7)
[2024-10-25] MEDS: bumetanide 0.25 mg/mL SDV 4 mL 1 MG IVP (12:46)
--- NOTE | 2024-10-25 13:18 | PC.NURSE ---
Dr Lantigua on the floor. Received orders to stop heparin drip and increase metoprolol
--- NOTE | 2024-10-25 14:15 | P.PN_ITS ---
Subjective 2 Subjective: awaiting cath on sunday denies new complaints Vitals/I&O/Wt Last Vital Signs Temp 97.8 F 10/25/24 12:00 Pulse 64 10/25/24 14:04 Resp 20 H 10/25/24 12:00 BP 137/69 10/25/24 12:00 Pulse Ox 97 10/25/24 12:00 O2 Del Method Room Air 10/25/24 12:00 O2 Flow Rate 2 10/24/24 08:00 10/24/24 10/25/24 10/25/24 22:59 06:59 14:59 Intake Total 314.667 / 925.768 4036.333 / 5095.929 1131.433 / 1120.433 Output Total 425 / 975 600 / 1575 Balance -110.333 / -322.666 631.333 / 807.891 3317.433 / 1120.433 Weight last 48 hrs Weight 94.687 kg Weight 94.71 kg Physical Exam 2 Narrative: General: No acute distress, AO x3, pt on room air today HEENT: PERRLA, pupils bilaterally equal and reactive, pallors not present Chest: cta b/l. CVS: S1-S2 regular, no gross murmurs appreciated. Abdomen: Soft, nontender, bowel sounds present Neuro: No focal deficits, no facial deformity, Urinary Catheter Management: Vazquez: Cath Placed During This Visit: yes Reason for Continuing Indwelling Catheter: Acute Urinary Retention or Obstruction Urinary Catheter Date of Insertion: 10/17/24 Data 10/25/24 03:40 10/25/24 03:40 A&P Assessment and plan (1) Paroxysmal atrial fibrillation: Patient is now in sinus rhythm but due to anasarca and kidney disease I am going to have her admitted for diuresis and consultation with Dr. Masterson the physician assistant primary care who I have already called. (2) CKD (chronic kidney disease): Known proteinuria diabetes hypertension. Cannot exclude sleep apnea (3) Acute exacerbation of CHF (congestive heart failure): We know she has diastolic dysfunction with A-fib and also likely pulmonary hypertension with sleep apnea but that is not diagnosed. I recommended that she follow-up for sleep apnea workup (4) CKD (chronic kidney disease), stage IV: Continue with Dr. Masterson. I continued irbesartan for now (5) Type 2 diabetes mellitus: 1600-calorie ADA weight loss diet and sliding scale insulin. Continue home insulin she is on high-dose degludec at 80 units daily (6) Obesity: Counseled regarding weight loss diet I recommend that she start daily weights calorie counting. She may be accounted for further Ozempic but likely at a lower dose and she needs to have her esophageal stricture evaluated (7) History of esophageal stricture: See above needs EGD possibly dilation Plan October 18, 2024 Patient is continued on iv diuresis due to persisting dyspnea and swelling, Bumex increased to 1.5mg iv every 12 hrs. Metoprolol 25 mg BID started today following which HR is better at 68 this evening. Repeat 12 lead EKG. Trop series mildly elevated without significant delta. Discussed with patient undergoing a stress test once euvolemic prior to discharge, however patient states she is extremely hesitant about this as previously she believes one of her friends during a stress test. Kidney function remaining stable today at 2.8. Urine output 1400 cc so far. Closely monitor renal function, continue diuresis until patient is euvolemic. Oxygen supplementation at 3 L/min today. October 19, 2024 Patient continues to be on Bumex, yesterday dose was increased to 1.5 mg IV every 12 hours, however creatinine today has trended up to 3.2. Urine output 1300 cc last 24 hours. Will reduce dose of Bumex to 0.5 mg IV every 12 hours today. Appreciate nephrology recommendations. Patient's persistent shortness of breath in spite of her diuresis may be multifactorial related to pulmonary edema, but also contributed by her pleural effusion. Per personal review of images patient appears to have left-sided pleural effusion. Will obtain CT of the chest to further assess. May need thoracentesis for symptom relief in case of moderate to large effusion. Leukocytosis has resolved today without any directed antibiotics, this makes pneumonia less likely, however CT chest will be further able to assess for this possibility as well. Check D-dimer to screen for PE. If positive to proceed with VQ scan. Dose of Eliquis would need to be increased from 2.5 twice daily to 5 mg twice daily in case patient has a DVT. Lower extremity Doppler was previously negative. Additionally patient's echocardiogram notes a dropped ejection fraction to 45 to 50% with mild global hypokinesia. Potentially may have anginal symptoms, however her symptoms are persistent regardless of any exertion and while laying in bed therefore angina as a source of her dyspnea is considered less likely at this time. Patient takes as needed albuterol inhaler at home. Will add albuterol inhalation for hospital use additionally and assess for improvement. 10/20/2024 vq scan done this morning, result pending plan for thoracentesis today eliquis on hold complains of sob on exertion, hopepfully thoracentesis will help symptoms echo shows reduced EF continue metoprolol 25 bid consult cardiology new onset HF PE not excluded at this time. continue diuretic check labs in AM ct chest shows: possible b/l pneumonia add antibiotics 10/21/2024 Continue ceftriaxone at this time. Complete 7-day course total Consult cardiology today for new onset heart failure. Shortness of breath is improved but not completely resolved at this time. She is currently requiring nasal cannula 2 L. 1 L fluid was removed off of right lung yesterday via thoracentesis. Fluid studies are pending at this time. Left side thoracentesis will be done today. Will place on heparin drip starting 9 PM. Continue to hold off on Eliquis in case of anticipated cardio procedures. Discussed with Dr. Lantigua in detail. Patient will likely require coronary angiogram going forward however we will wait on kidney function to improve. Continue Bumex 1 mg every 12 hours. Continue metoprolol tartrate 25 every 12 hours. Cardiology consulted. Will await recommendations VQ scan does show intermediate probability of PE however clinically I have low suspicion. After thoracentesis her shortness of breath has improved somewhat. Will be placing on a heparin drip for A-fib which will cover for PE as well at this time. 10/22/2024 Continue ceftriaxone to complete 7-day course total. Cardiology consulted. Patient on Bumex 1 mg twice daily at this time. Thoracentesis removed 1 L off of right side and 700 cc removed from left side. Patient has been on heparin drip overnight. This was done in anticipation of any cardiac procedure going forward. However patient's renal function is poor with creatinine of 3.1 today. I will discuss with cardiology. If no plans in the immediate near future we will switch to Eliquis. Continue metoprolol tartrate every 12 hours Patient is now on room air. Check home oxygen evaluation today Check PT OT Patient states that she is very weak. She will most likely be agreeable to rehab if that is required at this point. I will assess and make further recommendations. Will plan for discharge in next 24 to 48 hours. Will discuss with cardiology today for plan of care going forward. 10/23/2024 pt is on room air and on heparin drip pt s/p thoracentesis stress test done this morning further recommendations from cardiology after stress test ceftriaxone day 4 today. complete 7 days total pt will be going to [place] at [facility] 10/24/2024 cardio has recommended angiogram plan for sunday on 2L NC today continue diuretics continue heparin drip will discuss with cardiology cr 3 range today 10/25/2024 appreciate cardiology recommendations continue imdur 30 daily continue bumex 1 mg daily continue plavix 75 daily, loaded with 300 plan for cath on sunday stop heparin drip continue protonix 40 daily continue metoprolol 50 bid PDMP PDMP Reviewed: Not Reviewed Attestations 2 Medical Necessity Statement*: awaiting cath on sunday Diagnoses Paroxysmal atrial fibrillation I48.0 CKD (chronic kidney disease) N18.9 Acute exacerbation of CHF (congestive heart failure) I50.9 CKD (chronic kidney disease), stage IV N18.4 Type 2 diabetes mellitus E11.9 Obesity E66.9 History of esophageal stricture Z87.19
--- NOTE | 2024-10-25 15:00 | P.PN_ITS ---
Subjective 2 Subjective: Patient had episode of A-fib, the time of my examination patient still was in A- fib Medications: Reviewed: Yes Medication Review Details: Current Medications Acetaminophen (Acetaminophen 325 Mg Tablet) 650 mg PO Q6H PRN PRN Reason: Mild/Mod Pain Or Temp >/= 101 Last Admin: 10/19/24 04:44 Dose: 650 mg Albuterol/Ipratropium (Ipratropium-Albuterol 3 Ml Neb) 3 ml INHALATION Q6H.RESP PRN PRN Reason: SHORTNESS OF BREATH Amlodipine Besylate (Amlodipine 10 Mg Tablet) 5 mg PO DAILY [facility] Last Admin: 10/23/24 08:23 Dose: 5 mg Bumetanide (Bumetanide 0.25 Mg/Ml Sdv 4 Ml) 0.5 mg IVP Q12H DHRUV Last Admin: 10/23/24 20:30 Dose: 0.5 mg Ceftriaxone Sodium (Ceftriaxone 1,000 Mg Sdv) 1,000 mg IVP Q24H DHRUV; Protocol Last Admin: 10/23/24 17:38 Dose: 1,000 mg Ezetimibe (Ezetimibe 10 Mg Tablet) 10 mg PO DAILY [facility] Last Admin: 10/23/24 08:24 Dose: 10 mg Ergocalciferol (Ergocalciferol (Vitamin D2) 50,000 Unit Capsule) 50,000 unit PO Q7D DHRUV Last Admin: 10/19/24 10:38 Dose: 50,000 unit Gabapentin (Gabapentin 100 Mg Capsule) 100 mg PO BID DHRUV Last Admin: 10/23/24 17:39 Dose: 100 mg Glucagon (Glucagon 1 Mg/Ml Kit 1 Ml) 1 mg IM ONCE PRN; Protocol PRN Reason: Adult Acute Hypoglycemia Nursing Prot. Heparin Sodium (Porcine) (Heparin 5,000 Unit/Ml Inj 1 Ml) 0 unit IVP PRN PRN; Protocol PRN Reason: Heparin Weight Based Protocol -Subsequent Bolus Last Admin: 10/22/24 20:42 Dose: 1,900 unit Dextrose (D5w) 500 mls @ 0 mls/hr IV ONCE PRN; Protocol PRN Reason: Adult Acute Hypoglycemia Prot Dextrose (D10w) 125 mls @ 750 mls/hr IV PRN PRN; Protocol PRN Reason: Adult Acute Hypoglycemia Nursing Protocol Dextrose (D10w) 250 mls @ 1,000 mls/hr IV PRN PRN; Protocol PRN Reason: Adult Acute Hypoglycemia Nursing Protocol Heparin Sodium/Sodium Chloride (Heparin Drip) 25,000 unit in 500 mls @ 0 mls/hr IV CONT DHRUV; Protocol Last Titration: 10/24/24 07:24 Dose: 10.7 unit/kg/hr, 20 mls/hr Insulin Human Lispro (Insulin Lispro 100 Unit/1 Ml) 0 unit SUBCUT WM&BEDTIME [facility]; Protocol Last Admin: 10/23/24 22:22 Dose: 10 unit Losartan Potassium (Losartan 50 Mg Tablet) 25 mg PO DAILY [facility] Last Admin: 10/23/24 08:23 Dose: 25 mg Melatonin (Melatonin 3 Mg Tablet) 3 mg PO BEDTIME PRN PRN Reason: INSOMNIA Last Admin: 10/18/24 22:49 Dose: 3 mg Metoprolol Tartrate (Metoprolol Tartrate 25 Mg Tablet) 25 mg PO Q12H [facility] Last Admin: 10/24/24 00:39 Dose: 25 mg Non-Formulary Medication (Galantamine) 4 mg PO BID [facility] Last Admin: 10/23/24 17:38 Dose: 4 mg Ondansetron HCl (Ondansetron Hcl Odt 4 Mg Tab) 4 mg PO Q6H PRN PRN Reason: NAUSEA AND VOMITING Ondansetron HCl (Ondansetron 2 Mg/Ml Sdv 2 Ml) 4 mg IVP Q8H PRN PRN Reason: vomiting, or N/V if npo Last Admin: 10/23/24 17:48 Dose: 4 mg Ondansetron HCl (Ondansetron 2 Mg/Ml Sdv 2 Ml) 4 mg IVP Q2M PRN PRN Reason: NAUSEA Pantoprazole Sodium (Pantoprazole Dr 40 Mg Tablet) 40 mg PO DAILY [facility] Last Admin: 10/23/24 08:24 Dose: 40 mg Vitals/I&O/Wt Last Vital Signs Temp 97.8 F 10/25/24 12:00 Pulse 64 10/25/24 14:04 Resp 20 H 10/25/24 12:00 BP 137/69 10/25/24 12:00 Pulse Ox 97 10/25/24 12:00 O2 Del Method Room Air 10/25/24 12:00 O2 Flow Rate 2 10/24/24 08:00 10/25/24 10/25/24 10/25/24 06:59 14:59 22:59 Intake Total 1231.333 / 3581.484 5108.433 / 1120.433 Output Total 600 / 1575 Balance 631.333 / 432.602 5781.433 / 1120.433 Weight last 48 hrs Weight 208 lb 12 oz Weight 208 lb 12.8 oz Physical Exam 2 Const: OTHER: GENERAL: Patient is alert, awake and oriented x3. HEART: Irregularly irregular S1 and S2. No murmur, rub or gallop. LUNGS: Clear to auscultate bilaterally. CENTRAL NERVOUS SYSTEM: Grossly nonfocal. EXTREMITIES: Lower extremities with out edema bilaterally. Urinary Catheter Management: Vazquez: Cath Placed During This Visit: yes Reason for Continuing Indwelling Catheter: Acute Urinary Retention or Obstruction Urinary Catheter Date of Insertion: 10/17/24 Data 10/25/24 03:40 10/25/24 03:40 A&P Assessment and plan (1) Acute heart failure with mildly reduced ejection fraction (HFmrEF): (2) Paroxysmal atrial fibrillation: (3) Essential hypertension: (4) Insulin dependent diabetes mellitus: (5) CKD (chronic kidney disease), stage IV: Plan Stress test turns out to be positive however because of not availability of Creative Project [employer] due to technical problem until Sunday I have offered patient to extend her stay to the Sunday at that time we will proceed with left heart cath however patient would like to go to penitentiary at home and would like to get it done as an outpatient. Since she is stable denies any complaint such as chest pain and she is not compensated state of heart failure we agree with discharging patient to the penitentiary and schedule her as an outpatient for left heart catheterization for possible stress test new onset of heart failure.Patient clearly understand high risk for contrast-induced nephropathy leading to temporary or permanent renal failure requiring dialysis. Plan continue beta-venkata Add isosorbide mononitrate 30 mg p.o. daily Bumex 1 mg p.o. daily Load patient with 300 mg of Plavix today and continue 75 mg from tomorrow Hold aspirin since patient will be on Eliquis for atrial fibrillation Add pantoprazole to the regimen. Hydralazine 25 mg p.o. 3 times daily since cannot start patient on EFRA or ARB due to underlying renal dysfunction Plan for left heart catheterization as an outpatient for new onset of heart failure abnormal stress test in [address] Lantigua Follow-up with cardiology nurse practitioner in 10 days On today's visit dated 10/25/2024. Patient had episode of A-fib we will increase metoprolol to 50 mg twice daily will give extra 25 mg p.o. now continue rest of medication. Patient is awaiting penitentiary placement, if she stays until Sunday and [employer] Project Manager is back up will consider left heart cath. PDMP PDMP Reviewed: Not Reviewed Attestations 2 Medical Necessity Statement*: As per medicine Coding Level of Care Code Acute Code for g Fwd Diagnoses Acute heart failure with mildly reduced ejection fraction (HFmrEF) I50.21 Paroxysmal atrial fibrillation I48.0 Essential hypertension I10 Insulin dependent diabetes mellitus CKD (chronic kidney disease), stage IV N18.4
[2024-10-25] MEDS: cefTRIAXone 1,000 mg SDV 1000 MG IVP (17:25)
--- NOTE | 2024-10-25 17:35 | P.PN_ITS ---
Subjective 2 Subjective: No new complaints Medications: Reviewed: Yes Vitals/I&O/Wt Last Vital Signs Temp 97.6 F 10/25/24 15:53 Pulse 63 10/25/24 15:53 Resp 12 10/25/24 15:53 BP 152/74 10/25/24 15:53 Pulse Ox 94 10/25/24 15:53 O2 Del Method Room Air 10/25/24 12:00 O2 Flow Rate 2 10/24/24 08:00 10/25/24 10/25/24 10/25/24 06:59 14:59 22:59 Intake Total 1231.333 / 0297.836 7143.433 / 1120.433 Output Total 600 / 1575 1300 / 1300 Balance 631.333 / 164.535 3664.433 / 1120.433 -1300 / -179.567 Weight last 48 hrs Weight 94.687 kg Weight 94.71 kg Physical Exam 2 Narrative: The patient is lying comfortably in bed. Vital signs noted. She is using nasal cannula oxygen. HEENT is normocephalic atraumatic. Neck is supple. Lungs -improved air movement b/l. Heart positive S1-S2, tachycardia Abdomen soft positive bowel sounds extremities-1 + bilateral leg edema. Neuro awake alert oriented x 3. Moves all extremities. Urinary Catheter Management: Vazquez: Cath Placed During This Visit: yes Reason for Continuing Indwelling Catheter: Acute Urinary Retention or Obstruction Urinary Catheter Date of Insertion: 10/17/24 Data 10/25/24 03:40 10/25/24 03:40 A&P Assessment and plan (1) CKD (chronic kidney disease), stage IV: 1. Acute on chronic kidney disease: Creatinine is in the 1.3-2 range chronically and followed by [facility], presumed secondary to diabetic nephropathy. Creatinine on presentation was 2.7 , currently at 3.3 and is stable. UA with 4+ protein and 1+ blood. Patient likely has diabetic nephropathy with nephrotic range proteinuria. Continue diuretics, arrange nephrology follow-up in 1 to 2 weeks postdischarge. Noted renal ultrasound results, no hydronephrosis and normal-sized kidneys. 2. Congestive cardiac failure, cardiology following patient , considering left heart cath, Will hold diuretics temporarily and give gentle IV fluids pre and post cath if left heart cath planned. 3. Hypertension: Continue current meds 4. Anemia: Hemoglobin 10.3, monitor Seen and examined with the nurse using audiovisual equipment. The patient consents to telehealth. Plan Anticoagulation and diuretics. for cardiac cath PDMP PDMP Reviewed: Not Reviewed Attestations 2 Medical Necessity Statement*: Per medicine team Coding Level of Care Code Acute Code for Chg Fwd Diagnoses CKD (chronic kidney disease), stage IV N18.4
[2024-10-26] VITALS (12 sets, daily range): BP systolic 124–161; BP diastolic 61–97; PULSE 59–103; RESP 12–19; TEMP 36.3–36.7; O2SAT 93–98; BMI 36.3
[2024-10-26 03:20] LABS: Hematocrit 37.1 % (36-47); Hemoglobin 10.90 g/dL (11.27-16.99); Mean Corpuscular HGB Conc 29.4 g/dL (30-55); Mean Corpuscular Hemoglobin 27.8 pg (27-33); Mean Corpuscular Volume 94.6 fl (85-98); Nucleated Red Blood Cells % 0 %; Platelet Count 250 10^3/cmm (157-399); Red Blood Count 3.92 10^6/uL (3.85-5.65); White Blood Count 12.01 10^3/uL (3.29-11.43)
[2024-10-26 03:44] LABS: Alanine Aminotransferase 14 U/L (0-33); Albumin Level 2.7 g/dL (3.5-5.2); Alkaline Phosphatase 108 U/L (35-105); Anion Gap 15.6 (5-19); Aspartate Amino Transferase 14 U/L (0-32); Blood Urea Nitrogen 37 mg/dL (8-23); Calcium 9.0 mg/dL (8.5-10.5); Carbon Dioxide 26 mmol/L (22-29); Chloride 105 mmol/L (98-107); Creatinine Clr Calc Pharmacy 19.2696; Globulin 2.7 g/dL (1.3-4.6); Glucose 110 mg/dL (65-115); Magnesium 2.2 mg/dL (1.7-2.3); Osmolality Calculated 303 mOsm/kg (285-295); Potassium 4.6 mmol/L (3.5-5.1); Sodium 142 mmol/L (136-145); Total Protein 5.4 g/dL (6.6-8.7)
[2024-10-26] MEDS: NON-FORMULARY MEDICATION (Galantamine 4 mg tablet) 4 EACH PO ×2 (07:40→16:54)
--- NOTE | 2024-10-26 10:11 | P.PN_ITS ---
Subjective 2 Subjective: awaiting cath on sunday denies new complaints Vitals/I&O/Wt Last Vital Signs Temp 97.8 F 10/26/24 08:00 Pulse 87 10/26/24 09:59 Resp 14 10/26/24 09:59 BP 124/61 10/26/24 08:00 Pulse Ox 94 10/26/24 09:59 O2 Del Method Room Air 10/26/24 09:59 O2 Flow Rate 2 10/24/24 08:00 10/25/24 10/26/24 10/26/24 22:59 06:59 14:59 Intake Total 360 / 1480.433 400 / 1880.433 360 / 360 Output Total 2049 750 / 2800 Balance -1690 / -569.567 -350 / -919.567 360 / 360 Weight last 48 hrs Weight 93.157 kg Weight 94.687 kg Physical Exam 2 Narrative: General: No acute distress, AO x3, pt on room air today HEENT: PERRLA, pupils bilaterally equal and reactive, pallors not present Chest: cta b/l. CVS: S1-S2 regular, no gross murmurs appreciated. Abdomen: Soft, nontender, bowel sounds present Neuro: No focal deficits, no facial deformity, Urinary Catheter Management: Vazquez: Cath Placed During This Visit: yes Reason for Continuing Indwelling Catheter: Acute Urinary Retention or Obstruction Urinary Catheter Date of Insertion: 10/17/24 Data 10/26/24 02:21 10/26/24 02:21 A&P Assessment and plan (1) Paroxysmal atrial fibrillation: Patient is now in sinus rhythm but due to anasarca and kidney disease I am going to have her admitted for diuresis and consultation with Dr. Masterson the agricultural economist who I have already called. (2) CKD (chronic kidney disease): Known proteinuria diabetes hypertension. Cannot exclude sleep apnea (3) Acute exacerbation of CHF (congestive heart failure): We know she has diastolic dysfunction with A-fib and also likely pulmonary hypertension with sleep apnea but that is not diagnosed. I recommended that she follow-up for sleep apnea workup (4) CKD (chronic kidney disease), stage IV: Continue with Dr. Masterson. I continued irbesartan for now (5) Type 2 diabetes mellitus: 1600-calorie ADA weight loss diet and sliding scale insulin. Continue home insulin she is on high-dose degludec at 80 units daily (6) Obesity: Counseled regarding weight loss diet I recommend that she start daily weights calorie counting. She may be accounted for further Ozempic but likely at a lower dose and she needs to have her esophageal stricture evaluated (7) History of esophageal stricture: See above needs EGD possibly dilation Plan October 18, 2024 Patient is continued on iv diuresis due to persisting dyspnea and swelling, Bumex increased to 1.5mg iv every 12 hrs. Metoprolol 25 mg BID started today following which HR is better at 68 this evening. Repeat 12 lead EKG. Trop series mildly elevated without significant delta. Discussed with patient undergoing a stress test once euvolemic prior to discharge, however patient states she is extremely hesitant about this as previously she believes one of her friends during a stress test. Kidney function remaining stable today at 2.8. Urine output 1400 cc so far. Closely monitor renal function, continue diuresis until patient is euvolemic. Oxygen supplementation at 3 L/min today. October 19, 2024 Patient continues to be on Bumex, yesterday dose was increased to 1.5 mg IV every 12 hours, however creatinine today has trended up to 3.2. Urine output 1300 cc last 24 hours. Will reduce dose of Bumex to 0.5 mg IV every 12 hours today. Appreciate nephrology recommendations. Patient's persistent shortness of breath in spite of her diuresis may be multifactorial related to pulmonary edema, but also contributed by her pleural effusion. Per personal review of images patient appears to have left-sided pleural effusion. Will obtain CT of the chest to further assess. May need thoracentesis for symptom relief in case of moderate to large effusion. Leukocytosis has resolved today without any directed antibiotics, this makes pneumonia less likely, however CT chest will be further able to assess for this possibility as well. Check D-dimer to screen for PE. If positive to proceed with VQ scan. Dose of Eliquis would need to be increased from 2.5 twice daily to 5 mg twice daily in case patient has a DVT. Lower extremity Doppler was previously negative. Additionally patient's echocardiogram notes a dropped ejection fraction to 45 to 50% with mild global hypokinesia. Potentially may have anginal symptoms, however her symptoms are persistent regardless of any exertion and while laying in bed therefore angina as a source of her dyspnea is considered less likely at this time. Patient takes as needed albuterol inhaler at home. Will add albuterol inhalation for hospital use additionally and assess for improvement. 10/20/2024 vq scan done this morning, result pending plan for thoracentesis today eliquis on hold complains of sob on exertion, hopepfully thoracentesis will help symptoms echo shows reduced EF continue metoprolol 25 bid consult cardiology new onset HF PE not excluded at this time. continue diuretic check labs in AM ct chest shows: possible b/l pneumonia add antibiotics 10/21/2024 Continue ceftriaxone at this time. Complete 7-day course total Consult cardiology today for new onset heart failure. Shortness of breath is improved but not completely resolved at this time. She is currently requiring nasal cannula 2 L. 1 L fluid was removed off of right lung yesterday via thoracentesis. Fluid studies are pending at this time. Left side thoracentesis will be done today. Will place on heparin drip starting 9 PM. Continue to hold off on Eliquis in case of anticipated cardio procedures. Discussed with Dr. Lantigua in detail. Patient will likely require coronary angiogram going forward however we will wait on kidney function to improve. Continue Bumex 1 mg every 12 hours. Continue metoprolol tartrate 25 every 12 hours. Cardiology consulted. Will await recommendations VQ scan does show intermediate probability of PE however clinically I have low suspicion. After thoracentesis her shortness of breath has improved somewhat. Will be placing on a heparin drip for A-fib which will cover for PE as well at this time. 10/22/2024 Continue ceftriaxone to complete 7-day course total. Cardiology consulted. Patient on Bumex 1 mg twice daily at this time. Thoracentesis removed 1 L off of right side and 700 cc removed from left side. Patient has been on heparin drip overnight. This was done in anticipation of any cardiac procedure going forward. However patient's renal function is poor with creatinine of 3.1 today. I will discuss with cardiology. If no plans in the immediate near future we will switch to Eliquis. Continue metoprolol tartrate every 12 hours Patient is now on room air. Check home oxygen evaluation today Check PT OT Patient states that she is very weak. She will most likely be agreeable to rehab if that is required at this point. I will assess and make further recommendations. Will plan for discharge in next 24 to 48 hours. Will discuss with cardiology today for plan of care going forward. 10/23/2024 pt is on room air and on heparin drip pt s/p thoracentesis stress test done this morning further recommendations from cardiology after stress test ceftriaxone day 4 today. complete 7 days total pt will be [facility] 10/24/2024 cardio has recommended angiogram plan for sunday on 2L NC today continue diuretics continue heparin drip will discuss with cardiology cr 3 range today 10/25/2024 appreciate cardiology recommendations continue imdur 30 daily continue bumex 1 mg daily continue plavix 75 daily, loaded with 300 plan for cath on sunday stop heparin drip (discussed with cardiology) continue protonix 40 daily continue metoprolol 50 bid 10/26/2024 appreciate cardiology recommendations continue imdur 30 daily continue bumex 1 mg daily continue plavix 75 daily, loaded with 300 plan for cath on sunday continue protonix 40 daily continue metoprolol 50 bid PDMP PDMP Reviewed: Not Reviewed Attestations 2 Medical Necessity Statement*: awaiting cath on sunday Diagnoses Paroxysmal atrial fibrillation I48.0 CKD (chronic kidney disease) N18.9 Acute exacerbation of CHF (congestive heart failure) I50.9 CKD (chronic kidney disease), stage IV N18.4 Type 2 diabetes mellitus E11.9 Obesity E66.9 History of esophageal stricture Z87.19
--- NOTE | 2024-10-26 11:02 | P.PN_ITS ---
Subjective 2 Subjective: Oxygenno new complaints Medications: Reviewed: Yes Vitals/I&O/Wt Last Vital Signs Temp 97.8 F 10/26/24 08:00 Pulse 87 10/26/24 09:59 Resp 14 10/26/24 09:59 BP 124/61 10/26/24 08:00 Pulse Ox 94 10/26/24 09:59 O2 Del Method Room Air 10/26/24 09:59 O2 Flow Rate 2 10/24/24 08:00 10/25/24 10/26/24 10/26/24 22:59 06:59 14:59 Intake Total 360 / 1480.433 400 / 1880.433 360 / 360 Output Total 2049 / 2049 750 / 2800 Balance -1690 / -569.567 -350 / -919.567 360 / 360 Weight last 48 hrs Weight 93.157 kg Weight 94.687 kg Physical Exam 2 Narrative: The patient is lying comfortably in bed. Vital signs noted. She is using nasal cannula oxygen. HEENT is normocephalic atraumatic. Neck is supple. Lungs -improved air movement b/l. Heart positive S1-S2, tachycardia Abdomen soft positive bowel sounds extremities-1 + bilateral leg edema. Neuro awake alert oriented x 3. Moves all extremities. Urinary Catheter Management: Vazquez: Cath Placed During This Visit: yes Reason for Continuing Indwelling Catheter: Acute Urinary Retention or Obstruction Urinary Catheter Date of Insertion: 10/17/24 Data 10/26/24 02:21 10/26/24 02:21 A&P Assessment and plan (1) CKD (chronic kidney disease), stage IV: 1. Acute on chronic kidney disease: Creatinine is in the 1.3-2 range chronically and followed by [facility], presumed secondary to diabetic nephropathy. Creatinine on presentation was 2.7 , currently at 3.3 and is stable. UA with 4+ protein and 1+ blood. Patient likely has diabetic nephropathy with nephrotic range proteinuria. Continue diuretics, arrange nephrology follow-up in 1 to 2 weeks postdischarge. Noted renal ultrasound results, no hydronephrosis and normal-sized kidneys. 2. Congestive cardiac failure, cardiology following patient , considering left heart cath, Will hold diuretics temporarily and give gentle IV fluids pre and post cath if left heart cath planned. 3. Hypertension: Continue current meds 4. Anemia: Hemoglobin 10.3, monitor Seen and examined with the nurse using audiovisual equipment. The patient consents to telehealth. Plan Anticoagulation and diuretics. for cardiac cath PDMP PDMP Reviewed: Not Reviewed Attestations 2 Medical Necessity Statement*: per jane Coding Level of Care Code Acute Code for Chg Fwd Diagnoses CKD (chronic kidney disease), stage IV N18.4
--- NOTE | 2024-10-26 14:26 | PM.PN ---
Subjective Subjective: Denies any problem Medications: Reviewed: Yes Medication Review Details: Current Medications Acetaminophen (Acetaminophen 325 Mg Tablet) 650 mg PO Q6H PRN PRN Reason: Mild/Mod Pain Or Temp >/= 101 Last Admin: 10/19/24 04:44 Dose: 650 mg Albuterol/Ipratropium (Ipratropium-Albuterol 3 Ml Neb) 3 ml INHALATION Q6H.RESP PRN PRN Reason: SHORTNESS OF BREATH Amlodipine Besylate (Amlodipine 10 Mg Tablet) 5 mg PO DAILY [facility] Last Admin: 10/23/24 08:23 Dose: 5 mg Bumetanide (Bumetanide 0.25 Mg/Ml Sdv 4 Ml) 0.5 mg IVP Q12H DHRUV Last Admin: 10/23/24 20:30 Dose: 0.5 mg Ceftriaxone Sodium (Ceftriaxone 1,000 Mg Sdv) 1,000 mg IVP Q24H DHRUV; Protocol Last Admin: 10/23/24 17:38 Dose: 1,000 mg Ezetimibe (Ezetimibe 10 Mg Tablet) 10 mg PO DAILY [facility] Last Admin: 10/23/24 08:24 Dose: 10 mg Ergocalciferol (Ergocalciferol (Vitamin D2) 50,000 Unit Capsule) 50,000 unit PO Q7D [facility] Last Admin: 10/19/24 10:38 Dose: 50,000 unit Gabapentin (Gabapentin 100 Mg Capsule) 100 mg PO BID [facility] Last Admin: 10/23/24 17:39 Dose: 100 mg Glucagon (Glucagon 1 Mg/Ml Kit 1 Ml) 1 mg IM ONCE PRN; Protocol PRN Reason: Adult Acute Hypoglycemia Nursing Prot. Heparin Sodium (Porcine) (Heparin 5,000 Unit/Ml Inj 1 Ml) 0 unit IVP PRN PRN; Protocol PRN Reason: Heparin Weight Based Protocol -Subsequent Bolus Last Admin: 10/22/24 20:42 Dose: 1,900 unit Dextrose (D5w) 500 mls @ 0 mls/hr IV ONCE PRN; Protocol PRN Reason: Adult Acute Hypoglycemia Prot Dextrose (D10w) 125 mls @ 750 mls/hr IV PRN PRN; Protocol PRN Reason: Adult Acute Hypoglycemia Nursing Protocol Dextrose (D10w) 250 mls @ 1,000 mls/hr IV PRN PRN; Protocol PRN Reason: Adult Acute Hypoglycemia Nursing Protocol Heparin Sodium/Sodium Chloride (Heparin Drip) 25,000 unit in 500 mls @ 0 mls/hr IV CONT [facility]; Protocol Last Titration: 10/24/24 07:24 Dose: 10.7 unit/kg/hr, 20 mls/hr Insulin Human Lispro (Insulin Lispro 100 Unit/1 Ml) 0 unit SUBCUT WM&BEDTIME [facility]; Protocol Last Admin: 10/23/24 22:22 Dose: 10 unit Losartan Potassium (Losartan 50 Mg Tablet) 25 mg PO DAILY [facility] Last Admin: 10/23/24 08:23 Dose: 25 mg Melatonin (Melatonin 3 Mg Tablet) 3 mg PO BEDTIME PRN PRN Reason: INSOMNIA Last Admin: 10/18/24 22:49 Dose: 3 mg Metoprolol Tartrate (Metoprolol Tartrate 25 Mg Tablet) 25 mg PO Q12H [facility] Last Admin: 10/24/24 00:39 Dose: 25 mg Non-Formulary Medication (Galantamine) 4 mg PO BID [facility] Last Admin: 10/23/24 17:38 Dose: 4 mg Ondansetron HCl (Ondansetron Hcl Odt 4 Mg Tab) 4 mg PO Q6H PRN PRN Reason: NAUSEA AND VOMITING Ondansetron HCl (Ondansetron 2 Mg/Ml Sdv 2 Ml) 4 mg IVP Q8H PRN PRN Reason: vomiting, or N/V if npo Last Admin: 10/23/24 17:48 Dose: 4 mg Ondansetron HCl (Ondansetron 2 Mg/Ml Sdv 2 Ml) 4 mg IVP Q2M PRN PRN Reason: NAUSEA Pantoprazole Sodium (Pantoprazole Dr 40 Mg Tablet) 40 mg PO DAILY [facility] Last Admin: 10/23/24 08:24 Dose: 40 mg Vitals/I&O/Wt Last Vital Signs Temp 98.0 F 10/26/24 11:57 Pulse 59 L 10/26/24 11:57 Resp 16 10/26/24 11:57 BP 133/64 10/26/24 11:57 Pulse Ox 98 10/26/24 11:57 O2 Del Method Room Air 10/26/24 11:57 O2 Flow Rate 2 10/24/24 08:00 10/25/24 10/26/24 10/26/24 22:59 06:59 14:59 Intake Total 360 / 1480.433 400 / 1880.433 600 / 600 Output Total 2049 750 / 2800 Balance -1690 / -569.567 -350 / -919.567 600 / 600 Weight last 48 hrs Weight 205 lb 6 oz Weight 208 lb 12 oz Physical Exam Const: OTHER: GENERAL: Patient is alert, awake and oriented x3. HEART: Irregularly irregular S1 and S2. No murmur, rub or gallop. LUNGS: Clear to auscultate bilaterally. CENTRAL NERVOUS SYSTEM: Grossly nonfocal. EXTREMITIES: Lower extremities with out edema bilaterally. Urinary Catheter Management: Vazquez: Cath Placed During This Visit: yes Reason for Continuing Indwelling Catheter: Acute Urinary Retention or Obstruction Urinary Catheter Date of Insertion: 10/17/24 Data 10/26/24 02:21 10/26/24 02:21 A&P Assessment and plan (1) Acute heart failure with mildly reduced ejection fraction (HFmrEF): (2) Paroxysmal atrial fibrillation: (3) Essential hypertension: (4) Insulin dependent diabetes mellitus: (5) CKD (chronic kidney disease), stage IV: Plan Stress test turns out to be positive however because of not availability of Pipe Organ Installer due to technical problem until Sunday I have offered patient to extend her stay to the Sunday at that time we will proceed with left heart cath however patient would like to go to [facility] and would like to get it done as an outpatient. Since she is stable denies any complaint such as chest pain and she is not compensated state of heart failure we agree with discharging patient to the prison and schedule her as an outpatient for left heart catheterization for possible stress test new onset of heart failure.Patient clearly understand high risk for contrast-induced nephropathy leading to temporary or permanent renal failure requiring dialysis. Plan continue beta-venkata Add isosorbide mononitrate 30 mg p.o. daily Bumex 1 mg p.o. daily Load patient with 300 mg of Plavix today and continue 75 mg from tomorrow Hold aspirin since patient will be on Eliquis for atrial fibrillation Add pantoprazole to the regimen. Hydralazine 25 mg p.o. 3 times daily since cannot start patient on EFRA or ARB due to underlying renal dysfunction Plan for left heart catheterization as an outpatient for new onset of heart failure abnormal stress test in [address] Lantigua Follow-up with cardiology nurse practitioner in 10 days On today's visit dated 10/25/2024. Patient had episode of A-fib we will increase metoprolol to 50 mg twice daily will give extra 25 mg p.o. now continue rest of medication. Patient is awaiting prison placement, if she stays until Sunday and Pipe [employer]er is back up will consider left heart cath. On today's visit dated 10/26/2024 patient continues to do fine from a cardiac perspective. Blood pressure is under control paroxysmal A-fib is now better and improved. Switch patient to Lovenox for atrial fibrillation since Clarence Vascor is high. Awaiting Pipe Organ Installer being functional. Patient refused to go and get transferred from the hospital for left heart cath. PDMP PDMP Reviewed: Not Reviewed Attestations Medical Necessity Statement*: As per medicine and as above Coding Level of Care Code Acute Code for g Fwd Diagnoses Acute heart failure with mildly reduced ejection fraction (HFmrEF) I50.21 Paroxysmal atrial fibrillation I48.0 Essential hypertension I10 Insulin dependent diabetes mellitus CKD (chronic kidney disease), stage IV N18.4
[2024-10-26] MEDS: cefTRIAXone 1,000 mg SDV 1000 MG IVP (16:53)
[2024-10-27] VITALS (39 sets, daily range): BP systolic 78–160; BP diastolic 50–107; PULSE 59–110; RESP 0–18; TEMP 36.4–36.6; O2SAT 85–99
[2024-10-27 04:01] LABS: Hematocrit 34.5 % (36-47); Hemoglobin 10.80 g/dL (11.27-16.99); Mean Corpuscular HGB Conc 31.3 g/dL (30-55); Mean Corpuscular Hemoglobin 28.7 pg (27-33); Mean Corpuscular Volume 91.8 fl (85-98); Nucleated Red Blood Cells % 0 %; Platelet Count 270 10^3/cmm (157-399); Red Blood Count 3.76 10^6/uL (3.85-5.65); White Blood Count 12.41 10^3/uL (3.29-11.43)
[2024-10-27 04:07] LABS: Anion Gap 16.4 (5-19); Blood Urea Nitrogen 45 mg/dL (8-23); Calcium 8.9 mg/dL (8.5-10.5); Carbon Dioxide 25 mmol/L (22-29); Chloride 106 mmol/L (98-107); Creatinine Clr Calc Pharmacy 18.3743; Glucose 248 mg/dL (65-115); Magnesium 2.2 mg/dL (1.7-2.3); Osmolality Calculated 316 mOsm/kg (285-295); Potassium 4.4 mmol/L (3.5-5.1); Sodium 143 mmol/L (136-145)
--- NOTE | 2024-10-27 07:38 | W.PM.OPSUD ---
Surgery/Procedure H&P Update DATE OF PROCEDURE: October 27, 2024 DATE H&P PERFORMED: 10/21/24 H&P UPDATE INFORMATION: I have reviewed H&P completed within last 30 days, I have examined patient prior to procedure and No changes to prior documentation CHANGES TO PREVIOUS DOCUMENTATION: New onset of heart failure Abnormal stress test Severe LV dysfunction PREOP DIAGNOSIS: As above PHYSICAL EXAM: alert, oriented x 3, clear to auscultation bilaterally, regular rate & rhythm and operative site marked OTHER PERTINENT EXAM FINDINGS: All risk-benefit and alternative for the procedure has been explained to the patient. Patient understand 2% risk of that stroke major bleed, patient understands 6% risk of contrast-induced nephropathy leading to temporary or permanent dialysis, patient understand risk of minor oozing infection hematoma pseudoaneurysm urgent emergent vascular or bypass surgery. She clearly understood and would like to proceed with it AIRWAY EVAL/ANESTHESIA PLAN: ASA II, Risks, benefits & alternatives of sedation and/or procedure discussed and Patient agrees to continue as planned
--- NOTE | 2024-10-27 09:19 | PM.PROC ---
Procedure Note: Date of procedure: 10/27/24 Pre-procedure diagnosis: Cardiomyopathy Post-procedure diagnosis: same Procedure: Cardiomyopathy abnormal stress test Left heart cath was performed: Left main is normal LAD has luminal irregularities with the proximal 40% stenosis Left circumflex has high-grade 90% proximal stenosis Left ramus intermedius has proximal 90% stenosis RCA is dominant vessel without significant stenosis Left ventricular end-diastolic pressure 35 mmHg Due to highly torturous aorta GuideLiner was used to seat the guide well along with AL-1 guide Excellent angiographic result with REMY-3 flow was achieved 2 overlapping stents were placed in proximal left circumflex and 1 stent was placed in the ramus intermedius both were postdilated with noncompliant balloon. Patient was loaded with Plavix 600 mg Continue aspirin statin beta-venkata Since patient got the contrast and it was difficult intervention we will continue IV fluid 100 mL/h along with Lasix to reduce LVEDP as well Full note to be dictated Coding Level of Care Code Acute Code for Jan Mancuso
--- NOTE | 2024-10-27 09:22 | P.PN_ITS ---
Subjective 2 Subjective: Underwent left heart catheterization noted to have high-grade proximal ramus intermedius and left circumflex artery 90% stenosis. Both were treated with 2 overlapping drug-eluting stent in proximal left circumflex and 1 drug-eluting stent in ramus intermedius. Both were postdilated with noncompliant balloon. Medications: Reviewed: Yes Medication Review Details: Current Medications Acetaminophen (Acetaminophen 325 Mg Tablet) 650 mg PO Q6H PRN PRN Reason: Mild/Mod Pain Or Temp >/= 101 Last Admin: 10/19/24 04:44 Dose: 650 mg Albuterol/Ipratropium (Ipratropium-Albuterol 3 Ml Neb) 3 ml INHALATION Q6H.RESP PRN PRN Reason: SHORTNESS OF BREATH Amlodipine Besylate (Amlodipine 10 Mg Tablet) 5 mg PO DAILY [facility]UV Last Admin: 10/23/24 08:23 Dose: 5 mg Bumetanide (Bumetanide 0.25 Mg/Ml Sdv 4 Ml) 0.5 mg IVP Q12H [facility] Last Admin: 10/23/24 20:30 Dose: 0.5 mg Ceftriaxone Sodium (Ceftriaxone 1,000 Mg Sdv) 1,000 mg IVP Q24H [facility]UV; Protocol Last Admin: 10/23/24 17:38 Dose: 1,000 mg Ezetimibe (Ezetimibe 10 Mg Tablet) 10 mg PO DAILY [facility] Last Admin: 10/23/24 08:24 Dose: 10 mg Ergocalciferol (Ergocalciferol (Vitamin D2) 50,000 Unit Capsule) 50,000 unit PO Q7D [facility] Last Admin: 10/19/24 10:38 Dose: 50,000 unit Gabapentin (Gabapentin 100 Mg Capsule) 100 mg PO BID [facility]UV Last Admin: 10/23/24 17:39 Dose: 100 mg Glucagon (Glucagon 1 Mg/Ml Kit 1 Ml) 1 mg IM ONCE PRN; Protocol PRN Reason: Adult Acute Hypoglycemia Nursing Prot. Heparin Sodium (Porcine) (Heparin 5,000 Unit/Ml Inj 1 Ml) 0 unit IVP PRN PRN; Protocol PRN Reason: Heparin Weight Based Protocol -Subsequent Bolus Last Admin: 10/22/24 20:42 Dose: 1,900 unit Dextrose (D5w) 500 mls @ 0 mls/hr IV ONCE PRN; Protocol PRN Reason: Adult Acute Hypoglycemia Prot Dextrose (D10w) 125 mls @ 750 mls/hr IV PRN PRN; Protocol PRN Reason: Adult Acute Hypoglycemia Nursing Protocol Dextrose (D10w) 250 mls @ 1,000 mls/hr IV PRN PRN; Protocol PRN Reason: Adult Acute Hypoglycemia Nursing Protocol Heparin Sodium/Sodium Chloride (Heparin Drip) 25,000 unit in 500 mls @ 0 mls/hr IV CONT D[facility]UV; Protocol Last Titration: 10/24/24 07:24 Dose: 10.7 unit/kg/hr, 20 mls/hr Insulin Human Lispro (Insulin Lispro 100 Unit/1 Ml) 0 unit SUBCUT WM&BEDTIME D[facility]UV; Protocol Last Admin: 10/23/24 22:22 Dose: 10 unit Losartan Potassium (Losartan 50 Mg Tablet) 25 mg PO DAILY [facility] Last Admin: 10/23/24 08:23 Dose: 25 mg Melatonin (Melatonin 3 Mg Tablet) 3 mg PO BEDTIME PRN PRN Reason: INSOMNIA Last Admin: 10/18/24 22:49 Dose: 3 mg Metoprolol Tartrate (Metoprolol Tartrate 25 Mg Tablet) 25 mg PO Q12H [facility] Last Admin: 10/24/24 00:39 Dose: 25 mg Non-Formulary Medication (Galantamine) 4 mg PO BID [facility] Last Admin: 10/23/24 17:38 Dose: 4 mg Ondansetron HCl (Ondansetron Hcl Odt 4 Mg Tab) 4 mg PO Q6H PRN PRN Reason: NAUSEA AND VOMITING Ondansetron HCl (Ondansetron 2 Mg/Ml Sdv 2 Ml) 4 mg IVP Q8H PRN PRN Reason: vomiting, or N/V if npo Last Admin: 10/23/24 17:48 Dose: 4 mg Ondansetron HCl (Ondansetron 2 Mg/Ml Sdv 2 Ml) 4 mg IVP Q2M PRN PRN Reason: NAUSEA Pantoprazole Sodium (Pantoprazole Dr 40 Mg Tablet) 40 mg PO DAILY [facility] Last Admin: 10/23/24 08:24 Dose: 40 mg Vitals/I&O/Wt Last Vital Signs Temp 97.8 F 10/27/24 03:20 Pulse 66 10/27/24 03:20 Resp 15 10/27/24 03:20 BP 156/83 10/27/24 03:20 Pulse Ox 95 10/27/24 03:20 O2 Del Method Nasal Cannula 10/27/24 03:20 O2 Flow Rate 2 10/24/24 08:00 10/26/24 10/27/24 10/27/24 22:59 06:59 14:59 Intake Total 480 / 1080 Output Total 750 / 750 625 / 1375 Balance -270 / 330 -625 / -295 Weight last 48 hrs Weight 214 lb 8 oz Weight 205 lb 6 oz Physical Exam 2 Const: COMMON NORMALS: alert OTHER: GENERAL: Patient is alert, awake and oriented x3. HEART: Irregularly irregular S1 and S2. No murmur, rub or gallop. LUNGS: Clear to auscultate bilaterally. CENTRAL NERVOUS SYSTEM: Grossly nonfocal. EXTREMITIES: Lower extremities with out edema bilaterally. Resp: COMMON NORMALS: clear to auscultation bilaterally AUSCULTATION: clear to auscultation bilaterally Neuro: SENSORIUM/ORIENTATION: Yes alert Urinary Catheter Management: Vazquez: Cath Placed During This Visit: yes Reason for Continuing Indwelling Catheter: Accurate Measurement of Urinary Output in Critically Ill Patients Urinary Catheter Date of Insertion: 10/17/24 Data 10/27/24 02:07 10/27/24 02:07 A&P Assessment and plan (1) Acute heart failure with mildly reduced ejection fraction (HFmrEF): (2) Paroxysmal atrial fibrillation: (3) Essential hypertension: (4) Insulin dependent diabetes mellitus: (5) CKD (chronic kidney disease), stage IV: Plan Stress test turns out to be positive however because of not availability of [employer] [facility] due to technical problem until Sunday I have offered patient to extend her stay to the Sunday at that time we will proceed with left heart cath however patient would like to go to long term at home and would like to get it done as an outpatient. Since she is stable denies any complaint such as chest pain and she is not compensated state of heart failure we agree with discharging patient to the long term and schedule her as an outpatient for left heart catheterization for possible stress test new onset of heart failure.Patient clearly understand high risk for contrast-induced nephropathy leading to temporary or permanent renal failure requiring dialysis. Plan continue beta-venkata Add isosorbide mononitrate 30 mg p.o. daily Bumex 1 mg p.o. daily Load patient with 300 mg of Plavix today and continue 75 mg from tomorrow Hold aspirin since patient will be on Eliquis for atrial fibrillation Add pantoprazole to the regimen. Hydralazine 25 mg p.o. 3 times daily since cannot start patient on EFRA or ARB due to underlying renal dysfunction Plan for left heart catheterization as an outpatient for new onset of heart failure abnormal stress test in [address] Lantigua Follow-up with cardiology nurse practitioner in 10 days On today's visit dated 10/25/2024. Patient had episode of A-fib we will increase metoprolol to 50 mg twice daily will give extra 25 mg p.o. now continue rest of medication. Patient is awaiting long term placement, if she stays until Sunday and [facility] is back up will consider left heart cath. On today's visit dated 10/26/2024 patient continues to do fine from a cardiac perspective. Blood pressure is under control paroxysmal A-fib is now better and improved. Switch patient to Lovenox for atrial fibrillation since Clarence Vascor is high. Awaiting Power Barker being functional. Patient refused to go and get transferred from the hospital for left heart cath. On today's visit dated July 28, 2024 proximal ramus intermedius and left circumflex was treated with drug-eluting stents postdilated with noncompliant balloon. Excellent angiographic result REMY-3 flow was achieved. Continue IV fluid 100 mL/h however left ventricular end-diastolic pressure which was equal and wedge was high into 30s I will continue diuresing her as well along with IV fluid to prevent contrast-induced nephropathy Continue aspirin statin Plavix patient was already loaded with 60 mg of Plavix Continue beta-venkata PDMP PDMP Reviewed: Not Reviewed Attestations 2 Medical Necessity Statement*: Patient required continuation hospitalization to monitor renal function and post-cath care Coding Level of Care Code Acute Code for g Fwd Diagnoses Acute heart failure with mildly reduced ejection fraction (HFmrEF) I50.21 Paroxysmal atrial fibrillation I48.0 Essential hypertension I10 Insulin dependent diabetes mellitus CKD (chronic kidney disease), stage IV N18.4
--- NOTE | 2024-10-27 09:30 | PC.SOCIAL ---
IMM Update pg 2 of IMM Updated and reviewed w/ patient. Copy provided and copy dated, initialed and placed in chart.
[2024-10-27] MEDS: FUROsemide 10 mg/mL SDV 4mL 40 MG IVP (09:59)
[2024-10-27] MEDS: NON-FORMULARY MEDICATION (Galantamine 4 mg tablet) 4 EACH PO ×2 (10:03→17:53)
--- NOTE | 2024-10-27 10:07 | PC.CHAP ---
Pastoral Care Encounter/Spiritual Assessment Type of Contact [] Declined tier truck driver visit [] Patient/Family/Request visit [] Outpatient visit [] Follow-up visit [] Physician referral [] Code/Alert [] Routine visit [] Staff referral [] Actively dying [] Patient sleeping [] Family support [] [] Out of room [] Palliative care [] [] Receiving care in room [] Pre-surgical visit [] Trauma [] Long length of stay [] ICU visit [] Other: Relational/Emotional Strength [] Patient feels connected with others/family/visitors/staff [] Distress [] Loneliness/isolation [] Abandonment Spirituality of Patient [] Person of Ching [] Attends Jainism of their Ching [] Believes in Prayer [] Reads Bible or Alevism materials [] There are Spiritual issues to be addressed Lip Of Shank Cutter Interventions [] Prayer [] Active listening [] Non-anxious presence [] Spiritual/emotional support [] Crisis/trauma care [] Spiritual counseling [] Bereavement support [] Provided bereavement packet [] Provided Bible/devotional materials [] Provided toy/stuffed animal, coloring book to patient or family member [] Provided Communion [] Anointing/[place] [] Salvation [] Completed spiritual assessment [] Other: Impact on Illness or Injury [] Angry [] Fearful [] Anxious [] Often cries [] Exhaustion [] Unable to work [] Unable to attend hindu [] Unable to walk/stand [] Unable to read [] Unable to drive [] Unable to eat/drink [] Unable to sleep [] Unable to be with family [] Patient intubated [] Other: Summary Time spent with patient
--- NOTE | 2024-10-27 10:10 | PC.CHAP ---
Pastoral Care Encounter/Spiritual Assessment Type of Contact [] Declined precipitation equipment tender visit [] Patient/Family/Request visit [] Outpatient visit [] Follow-up visit [] Physician referral [] Code/Alert [x] Routine visit [] Staff referral [] Actively dying [] Patient sleeping [] Family support [] [x] Out of room [] Palliative care [] [] Receiving care in room [] Pre-surgical visit [] Trauma [] Long length of stay [] ICU visit [] Other: Relational/Emotional Strength [] Patient feels connected with others/family/visitors/staff [] Distress [] Loneliness/isolation [] Abandonment Spirituality of Patient [] Person of Ching [] Attends Episcopal of their Ching [] Believes in Prayer [] Reads Bible or Latter-Day materials [] There are Spiritual issues to be addressed Coordinate Measuring Machine Programmer Interventions [] Prayer [] Active listening [] Non-anxious presence [] Spiritual/emotional support [] Crisis/trauma care [] Spiritual counseling [] Bereavement support [] Provided bereavement packet [] Provided Bible/devotional materials [] Provided toy/stuffed animal, coloring book to patient or family member [] Provided Communion [] Anointing/[place] [] Salvation [] Completed spiritual assessment [] Other: Impact on Illness or Injury [] Angry [] Fearful [] Anxious [] Often cries [] Exhaustion [] Unable to work [] Unable to attend mormonism [] Unable to walk/stand [] Unable to read [] Unable to drive [] Unable to eat/drink [] Unable to sleep [] Unable to be with family [] Patient intubated [] Other: Summary Time spent with patient
--- NOTE | 2024-10-27 10:47 | PM.PN ---
Subjective Subjective: s/p LHC today Medications: Reviewed: Yes Vitals/I&O/Wt Last Vital Signs Temp 97.7 F 10/27/24 08:00 Pulse 61 10/27/24 10:00 Resp 18 10/27/24 10:00 BP 144/87 10/27/24 08:00 Pulse Ox 96 10/27/24 10:00 O2 Del Method Nasal Cannula 10/27/24 10:00 O2 Flow Rate 2 10/27/24 10:00 10/26/24 10/27/24 10/27/24 22:59 06:59 14:59 Intake Total 480 / 1080 360 / 360 Output Total 750 / 750 1075 / 1825 Balance -270 / 330 -1075 / -745 360 / 360 Weight last 48 hrs Weight 97.296 kg Weight 93.157 kg Physical Exam Narrative: The patient is lying comfortably in bed. Vital signs noted. She is using nasal cannula oxygen. HEENT is normocephalic atraumatic. Neck is supple. Lungs -improved air movement b/l. Heart positive S1-S2, tachycardia Abdomen soft positive bowel sounds extremities-1 + bilateral leg edema. Neuro awake alert oriented x 3. Moves all extremities. Urinary Catheter Management: Vazquez: Cath Placed During This Visit: yes Reason for Continuing Indwelling Catheter: Accurate Measurement of Urinary Output in Critically Ill Patients Urinary Catheter Date of Insertion: 10/17/24 Data 10/27/24 02:07 10/27/24 02:07 A&P Assessment and plan (1) CKD (chronic kidney disease), stage IV: 1. Acute on chronic kidney disease: Creatinine is in the 1.3-2 range chronically and followed by [facility], presumed secondary to diabetic nephropathy. Creatinine on presentation was 2.7 , currently at 3.3 and is stable. UA with 4+ protein and 1+ blood. Patient likely has diabetic nephropathy with nephrotic range proteinuria. - Pt received IV contrast with LHC , on IVFs and hold diuretic temporarily -arrange nephrology follow-up in 1 to 2 weeks postdischarge. Noted renal ultrasound results, no hydronephrosis and normal-sized kidneys. 2. Congestive cardiac failure, cardiology following patient , s/p LHC Will hold diuretics temporarily and give gentle IV fluids pre and post cath if left heart cath planned. 3. Hypertension: Continue current meds 4. Anemia: Hemoglobin 10.3, monitor Seen and examined with the nurse using audiovisual equipment. The patient consents to telehealth. Plan Anticoagulation and diuretics. for cardiac cath PDMP PDMP Reviewed: Not Reviewed Attestations Medical Necessity Statement*: per medicne Coding Level of Care Code Acute Code for Chg Fwd Diagnoses CKD (chronic kidney disease), stage IV N18.4
--- NOTE | 2024-10-27 15:04 | P.PN_ITS ---
Subjective 2 Subjective: She is feeling well after coronary angiogram. Denies chest pain or pressure. No trouble breathing. Vitals/I&O/Wt Last Vital Signs Temp 97.7 F 10/27/24 08:00 Pulse 60 10/27/24 12:00 Resp 8 L 10/27/24 12:00 BP 127/61 10/27/24 12:00 Pulse Ox 98 10/27/24 12:00 O2 Del Method Nasal Cannula 10/27/24 12:00 O2 Flow Rate 2 10/27/24 10:00 10/27/24 10/27/24 10/27/24 06:59 14:59 22:59 Intake Total 480 / 480 Output Total 1075 / 1825 Balance -1075 / -745 480 / 480 Weight last 48 hrs Weight 97.296 kg Weight 93.157 kg Physical Exam 2 Narrative: Accompanied by family including her Const: COMMON NORMALS: patient oriented x3 and alert GENERAL APPEARANCE: c ooperative ORIENTATION/CONSCIOUSNESS: Yes awake HENMT: COMMON NORMALS: oropharynx normal Neck/C-Spine: COMMON NORMALS: no JVD Resp: COMMON NORMALS: normal respiratory effort and clear to auscultation bilaterally AUSCULTATION: clear to auscultation bilaterally Cardio: COMMON NORMALS: no JVD, regular rhythm, S1 normal heart sound present, S2 normal heart sound present and No murmurs present (Cardio) RHYTHM: regular rhythm HEART SOUNDS: S1 normal heart sound present and S2 normal heart sound present GI: COMMON NORMALS: Normal to inspection, nondistended, normoactive bowel sounds present, Soft to palpation and non-tender PALPATION: Yes Soft to palpation Extremity: COMMON NORMALS: no joint enlargement NARRATIVE EXTREMITY EXAM: Right wrist TR band GENERAL: Yes edema (Trace) Neuro: COMMON NORMALS: patient oriented x3 and moves all extremities S ENSORIUM/ORIENTATION: Yes alert Skin: COMMON NORMALS: no rashes or lesions noted GENERAL SKIN EXAM: no rashes or lesions noted Urinary Catheter Management: Vazquez: Cath Placed During This Visit: yes Reason for Continuing Indwelling Catheter: Accurate Measurement of Urinary Output in Critically Ill Patients Urinary Catheter Date of Insertion: 10/17/24 Data 10/27/24 02:07 10/27/24 02:07 A&P Assessment and plan (1) Acute exacerbation of CHF (congestive heart failure): Acute congestive heart failure with possible ischemic cardiomyopathy with abnormal stress test underwent coronary angiography with finding of obstructive coronary disease requiring PCI with stenting. She is doing well after cardiac catheterization no symptoms chest pain or pressure. No trouble breathing. Continue with post cardiac cath care. Discussed with cardiology. Continue removal of TR band. Return to the treatment with risk of reperfusion injury, arrhythmia. Reviewed vitals, CBC, BMP. Reviewed blood culture. Trace edema of lower extremities. Diuretic has been held for now, receiving gentle IV hydration after coronary catheterization. Reassess volume status. Monitor for risk of fluid overload. Reassess chemistry for kidney function. Discussed with nursing, case therapist. We know she has diastolic dysfunction with A-fib and also likely pulmonary hypertension with sleep apnea but that is not diagnosed. Sleep apnea workup was recommended to her. (2) Paroxysmal atrial fibrillation: Patient is now in sinus rhythm but due to anasarca and kidney disease I am going to have her admitted for diuresis and consultation with Dr. Masterson the regulatory affairs director who I have already called. (3) CKD (chronic kidney disease), stage IV: Reviewed chemistry. Repeat. Reviewed nephrology note. Reviewed urine culture. (4) Type 2 diabetes mellitus: Reviewed POC glucose. Will resume long-acting insulin with 20 units at this time. Continue sliding scale. 1600-calorie ADA weight loss diet and sliding scale insulin. Continue home insulin she is on high-dose degludec at 80 units daily (5) Obesity: Had been counseled regarding weight loss diet I recommend that she start daily weights calorie counting. She may be accounted for further Ozempic but likely at a lower dose and she needs to have her esophageal stricture evaluated (6) History of esophageal stricture: See above needs EGD possibly dilation PDMP PDMP Reviewed: Not Reviewed Attestations 2 Medical Necessity Statement*: Continue admission for assessment management following coronary angiography and PCI with stent placement, ischemic cardiomyopathy, and a lady with underlying chronic kidney disease stage IV, diabetes, paroxysmal A-fib, additional comorbidities. Diagnoses Acute exacerbation of CHF (congestive heart failure) I50.9 Paroxysmal atrial fibrillation I48.0 CKD (chronic kidney disease), stage IV N18.4 Type 2 diabetes mellitus E11.9 Obesity E66.9 History of esophageal stricture Z87.19
[2024-10-27] MEDS: cefTRIAXone 1,000 mg SDV 1000 MG IVP (17:54)
[2024-10-27] MEDS: insulin glargine 100 units/1 mL 20 UNIT SUBCUT (21:06)
[2024-10-28] VITALS (7 sets, daily range): BP systolic 135–145; BP diastolic 68–85; PULSE 60–65; RESP 13–17; TEMP 36.4–36.6; O2SAT 95–97
[2024-10-28 02:45] LABS: Hematocrit 32.3 % (36-47); Hemoglobin 10.00 g/dL (11.27-16.99); Mean Corpuscular HGB Conc 31.0 g/dL (30-55); Mean Corpuscular Hemoglobin 28.4 pg (27-33); Mean Corpuscular Volume 91.8 fl (85-98); Nucleated Red Blood Cells % 0 %; Platelet Count 296 10^3/cmm (157-399); Red Blood Count 3.52 10^6/uL (3.85-5.65); White Blood Count 14.44 10^3/uL (3.29-11.43)
[2024-10-28 03:13] LABS: Anion Gap 15.6 (5-19); Blood Urea Nitrogen 48 mg/dL (8-23); Calcium 8.6 mg/dL (8.5-10.5); Carbon Dioxide 23 mmol/L (22-29); Chloride 105 mmol/L (98-107); Creatinine Clr Calc Pharmacy 16.8431; Glucose 241 mg/dL (65-115); Osmolality Calculated 309 mOsm/kg (285-295); Potassium 4.6 mmol/L (3.5-5.1); Sodium 139 mmol/L (136-145)
[2024-10-28] MEDS: NON-FORMULARY MEDICATION (Galantamine 4 mg tablet) 4 EACH PO (08:53)
--- NOTE | 2024-10-28 09:21 | P.PN_ITS ---
<Statement entered by Lala Lantigua MD - 10/28/24 20:58> Patient was evaluated and cared for in conjunction with an advanced practice practitioner. I personally examined the patient and reviewed the chart and all pertinent data including imaging, telemetry, and laboratory results. I discussed the patient in detail with the advanced practice practitioner. Please see their note for complete H&P testing result and agreed upon plan of care for the patient. Patient denies chest pain but does think that she is more short of breath today GENERAL: Patient is alert, awake and oriented x3. HEART: Regular S1 and S2. No murmur, rub or gallop. LUNGS: Clear to auscultate bilaterally. CENTRAL NERVOUS SYSTEM: Grossly nonfocal. EXTREMITIES: Lower extremities with out edema bilaterally. Assessment and plan New onset of heart failure Non-STEMI status post drug-eluting stents Chronic kidney disease acute on chronic Patient appears to be volume overloaded will diurese her today with IV Lasix continue optimize medication Continue dual antiplatelet therapy Monitor renal function closely Subjective 2 Subjective: She underwent stent x 2 to the proximal left circumflex and ramus intermedius yesterday, creatinine bumped up to 3.6 this morning from 3.3 yesterday. She is feeling some shortness of breath, has crackles in her lungs. Will pause IV fluids, continue Bumex 1 mg daily. Vitals/I&O/Wt Last Vital Signs Temp 97.6 F 10/28/24 07:43 Pulse 62 10/28/24 07:43 Resp 14 10/28/24 07:43 BP 145/85 10/28/24 07:43 Pulse Ox 96 10/28/24 07:43 O2 Del Method Nasal Cannula 10/28/24 07:43 O2 Flow Rate 2 10/27/24 23:48 10/27/24 10/28/24 10/28/24 22:59 06:59 14:59 Intake Total 2188.333 / 3686.666 1000 / 3686.666 18.333 / 18.333 Output Total 1200 / 1550 350 / 1550 Balance 988.333 / 2136.666 650 / 2136.666 18.333 / 18.333 Weight last 48 hrs Weight 215 lb Weight 214 lb 8 oz Physical Exam 2 Const: COMMON NORMALS: no acute distress and patient oriented x3 GENERAL APPEARANCE: cooperative ORIENTATION/CONSCIOUSNESS: Yes awake, Yes oriented to person, Yes oriented to place and Yes oriented to time Chest: COMMONS NORMALS: normal inspection of the chest and normal palpation of entire chest wall CHEST: Yes Symmetrical chest wall rise Resp: COMMON NORMALS: normal respiratory effort, No retractions and No use of accessory muscles AUSCULTATION: crackles Laterality: bilateral and posterior Cardio: COMMON NORMALS: regular rate, regular rhythm, S1 normal heart sound present, S2 normal heart sound present, No gallops present (Cardio), No clicks present (Cardio), No murmurs present (Cardio) and No rub (Cardio) RATE: r egular rate RHYTHM: regular rhythm HEART SOUNDS: S1 normal heart sound present and S2 normal heart sound present PERIPHERAL PULSES: radial pulses present positive right 2+ and femoral pulses present positive right 2+ Neuro: COMMON NORMALS: patient oriented x3 and moves all extremities S ENSORIUM/ORIENTATION: Yes oriented to person, Yes oriented to place and Yes oriented to time Skin: WOUNDS: Yes surgical site (no hematoma palpable) Details: no odor Urinary Catheter Management: Vazquez: Cath Placed During This Visit: yes Reason for Continuing Indwelling Catheter: Accurate Measurement of Urinary Output in Critically Ill Patients Urinary Catheter Date of Insertion: 10/17/24 Data 10/28/24 02:18 10/28/24 02:18 A&P Assessment and plan 1. Acute heart failure with mildly reduced ejection fraction (HFmrEF): 2. Paroxysmal atrial fibrillation: 3. Essential hypertension: 4. Insulin dependent diabetes mellitus: 5. CKD (chronic kidney disease), stage IV: Plan: Would appreciate nephrology input in regards to IV fluid and diuretic doses, given slight bump in creatinine due to contrast from heart cath yesterday. She does not have any chest pain, right radial cath site looks good. Blood pressure controlled. PDMP PDMP Reviewed: Not Reviewed Attestations 2 Medical Necessity Statement*: AKIRA, post-cath care Coding Level of Care Code Acute Code for [facility] Fwd Diagnoses Acute heart failure with mildly reduced ejection fraction (HFmrEF) I50.21 Paroxysmal atrial fibrillation I48.0 Essential hypertension I10 Insulin dependent diabetes mellitus CKD (chronic kidney disease), stage IV N18.4
--- NOTE | 2024-10-28 10:15 | PC.CHAP ---
Pastoral Care Encounter/Spiritual Assessment Type of Contact [x] Declined behavioral specialist visit [] Patient/Family/Request visit [] Outpatient visit [] Follow-up visit [] Physician referral [] Code/Alert [] Routine visit [] Staff referral [] Actively dying [] Patient sleeping [] Family support [] [] Out of room [] Palliative care [] [] Receiving care in room [] Pre-surgical visit [] Trauma [] Long length of stay [] ICU visit [] Other: Relational/Emotional Strength [] Patient feels connected with others/family/visitors/staff [] Distress [] Loneliness/isolation [] Abandonment Spirituality of Patient [] Person of Ching [] Attends Restoration of their Ching [] Believes in Prayer [] Reads Bible or Baptism materials [] There are Spiritual issues to be addressed [place] Interventions [] Prayer [] Active listening [] Non-anxious presence [] Spiritual/emotional support [] Crisis/trauma care [] Spiritual counseling [] Bereavement support [] Provided bereavement packet [] Provided Bible/devotional materials [] Provided toy/stuffed animal, coloring book to patient or family member [] Provided Communion [] Anointing/[place] [] Salvation [] Completed spiritual assessment [] Other: Impact on Illness or Injury [] Angry [] Fearful [] Anxious [] Often cries [] Exhaustion [] Unable to work [] Unable to attend spiritism [] Unable to walk/stand [] Unable to read [] Unable to drive [] Unable to eat/drink [] Unable to sleep [] Unable to be with family [] Patient intubated [] Other: Summary Time spent with patient
--- NOTE | 2024-10-28 13:24 | PM.DCS ---
Discharge Providers Date of Admission: 10/17/24 06:59 Date of Discharge: October 28, 2024 Attending Provider at Admission: Derian Hsieh MD Attending Provider at Discharge: Tom Gonzalez Primary Care Provider: Jose Bah MD Diagnoses at Discharge Discharge Diagnosis 1. Acute heart failure with mildly reduced ejection fraction (HFmrEF): 2. Paroxysmal atrial fibrillation: 3. Essential hypertension: 4. Insulin dependent diabetes mellitus: 5. CKD (chronic kidney disease), stage IV: Reason for Visit Reason for Visit: Hard to breathe Brief History: Sandra Lemus is a 69 year old female comes in with palpitations and difficulty breathing. She has had worsening leg swelling, orthopnea dyspnea on exertion. She came to the ER and was found to have atrial fibrillation with rapid ventricular response bilateral pleural effusions and pulmonary vascular congestion. Patient was given Bumex and Cardizem in the emergency department. I was asked to admit her. Patient is companied by her Tenzin. Patient on 03/09/2022 had chest x-ray okay no effusions. On echo she had LVEF 56% at that time and mild left atrial enlargement. EKG today showed A-fib. EKG 03/14/2022 sinus rhythm with poor septal R wave progression consistent with past septal SC. Her Holter monitor 03/22/2022 showed sinus rhythm with first-degree AV block and PVCs no A-fib at that time Renal function used to run creatinine of 1.0 in 2021 since end of 2023 she is run creatinine of around 2. She admits to acute worsening of leg edema, abdominal edema, dyspnea on exertion and orthopnea. She has some snoring but not terribly loud per her 's report. She has not been treated diagnosed or treated for sleep apnea but she is reluctant to wear CPAP because her was diagnosed and did not tolerate it well. I did financial counselor her regarding leg edema and increased pulmonary pressures related to sleep apnea and she is somewhat willing to attempt treatment and diagnosis. I also talked her about obesity and she is already on Ozempic but she had some GI upset and vomiting. Additionally she has a history of esophageal stricture dilated years ago about 15 years ago. Recently she has had some trouble swallowing bread and meat sometimes she vomits water if drinking too fast. 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 She has 1 child Hospital Course Hospital Course She was found to have bilateral pleural effusions and pulmonary edema as well as in atrial fibrillation with RVR treated with pushes of Cardizem and transition to p.o. metoprolol with MANUELITO on CKD. She was treated with IV diuretics, however, not tolerated well with worsening renal function and these had to be de-escalated. With further assessment on CT of the chest found to have bilateral consolidation and pleural effusions and started on treatment for pneumonia with antibiotics and underwent thoracentesis with removal of 1 L from the right side and 700 cc from the left. Fluid culture noted negative although unclear from which side. Pneumonia ultimately considered less likely. Oxygen requirement gradually improving. With intermediate risk for pulmonary embolism noted on VQ scan although clinically suspicion for PE was lower. With atrial fibrillation was maintained on anticoagulation. Underwent coronary angiography with finding of coronary disease with 40% stenosis of LAD 90% proximal stenosis of LCx, 90% stenosis of left ramus intermedius, RCA without significant disease. Underwent PCI with placement of 2 overlapping stents in proximal LCx and 1 stent in ramus intermedius. Doing well post angiography. Continues on Plavix and anticoagulation at discharge. Needs her renal function reassessed given some persistence of MANUELITO on CKD with creatinine of 3.6, and per discussion with nephrology chemistry should be repeated in 3 days ending a week also with follow-up with nephrology in 1 to 2 weeks. She is proceeding to rehabilitation at SNF at discharge. Please follow-up with her regarding incidentally noted groundglass opacities with question of 4 mm bilateral upper lobe pulmonary nodules. She is a never smoker so follow-up imaging may not be indicated but may be considered. Physical Exam Narrative: She is doing well. Denies chest pain or pressure. Breathing comfortable. No complaints. No issues with access site. Const: COMMON NORMALS: patient oriented x3 and alert GENERAL APPEARANCE: cooperative ORIENTATION/CONSCIOUSNESS: Yes awake HENMT: COMMON NORMALS: oropharynx normal Neck/C-Spine: COMMON NORMALS: no JVD Resp: COMMON NORMALS: normal respiratory effort and clear to auscultation bilaterally AUSCULTATION: clear to auscultation bilaterally Cardio: COMMON NORMALS: no JVD, regular rhythm, S1 normal heart sound present, S2 normal heart sound present and No murmurs present (Cardio) RHYTHM: regular rhythm HEART SOUNDS: S1 normal heart sound present and S2 normal heart sound present GI: COMMON NORMALS: Normal to inspection, nondistended, normoactive bowel sounds present, Soft to palpation and non-tender PALPATION: Yes Soft to palpation Extremity: COMMON NORMALS: no joint enlargement NARRATIVE EXTREMITY EXAM: Right wrist TR band GENERAL: Yes edema (Trace) Neuro: COMMON NORMALS: patient oriented x3 and moves all extremities SENSORIUM/ORIENTATION: Yes alert Skin: COMMON NORMALS: no rashes or lesions noted GENERAL SKIN EXAM: no rashes or lesions noted Urinary Catheter Management: Vazquez: Cath Placed During This Visit: yes Reason for Continuing Indwelling Catheter: Accurate Measurement of Urinary Output in Critically Ill Patients Urinary Catheter Date of Insertion: 10/17/24 Discharge Data Studies Completed and Pending Completed Studies During Hospitalization Category Date Time Status CT chest wo con [id number] Routine Cat Scan 10/19/24 10:46 Completed Cardiac Stress Test MIBI [Sestamibi Stress Test Request Exams 10/22/24 14:57 Draft ] Routine XR chest 1V portable [id number] Routine Exams 10/20/24 07:27 Completed XR chest 1V portable [id number] Stat Exams 10/17/24 02:23 Completed XR chest 1V portable [id number] Stat Exams 10/20/24 15:54 Completed XR chest 1V portable [id number] Stat Exams 10/21/24 14:11 Completed XR chest 1V portable [id number] Stat Exams 10/21/24 15:32 Completed NM danna perf SPECT r/s* [id number] Routine Nuc Med 10/23/24 14:57 Completed NM pul vent and perfus* [id number] Routine Nuc Med 10/20/24 17:58 Completed Cytology [PTH] Routine Pth 10/19/24 11:51 [place] [id number] Routine Ultrasound 10/17/24 09:02 Completed CV. echo complete* [id number] Routine Ultrasound 10/17/24 10:44 Completed US renal BI* [id number] Routine Ultrasound 10/17/24 08:11 Completed US thoracentesis [id number] Routine Ultrasound 10/20/24 11:50 Completed US thoracentesis [id number] Urgent Ultrasound 10/21/24 14:23 Completed Pending at discharge Category Date Time Status PLUMBER GASFITTER request for service Routine Exams 10/27/24 06:55 Taken Radiology Impressions Renal Ultrasound 10/17/24 08:11 IMPRESSION: Normal renal ultrasound. Chest CT 10/19/24 10:46 IMPRESSION: 1. Bilateral pulmonary consolidation and moderate bilateral pleural effusions. Findings may represent pneumonia. 2. Nonspecific ground-glass opacities and 4 mm bilateral upper lobe pulmonary nodules. For patients at low risk (minimal or absent history of smoking and of other known risk factors), no routine follow-up is indicated. For patients at high risk (history of smoking or of other known risk factors), consider optional CT Chest at 12 months. (Reference: Last) References: Last Hearn, et al. Guidelines for Management of Incidental Pulmonary Nodules Detected on CT Images: From the Fleischner Society 2017. Radiology. 2017;284(1):228-243. 3. Borderline adenopathy in the mediastinum which may be reactive. Pulmonary Perfusion Imaging 10/20/24 17:58 IMPRESSION: 1. Intermediate probability for pulmonary embolus. Thoracentesis Ultrasound 10/21/24 14:23 IMPRESSION: 1. Uncomplicated ultrasound-guided LEFT thoracentesis. 2. 700 cc clear yellow fluid was removed Chest X-Ray 10/21/24 15:32 IMPRESSION: 1. Improved LEFT pleural effusion postthoracentesis. Residual compressive atelectasis LEFT lower lobe. 2. No pneumothorax. Laboratory Results WBC 14.44 10^3/uL (3.29-11.43) H 10/28/24 02:18 RBC 3.52 10^6/uL (3.85-5.65) L 10/28/24 02:18 Hgb 10.00 g/dL (11.27-16.99) L 10/28/24 02:18 Hct 32.3 % (36-47) L 10/28/24 02:18 MCV 91.8 fl (85-98) 10/28/24 02:18 MCH 28.4 pg (27-33) 10/28/24 02:18 MCHC 31.0 g/dL (30-55) 10/28/24 02:18 RDW 13.5 % (12.1-15.1) 10/28/24 02:18 Plt Count 296 10^3/cmm (157-399) 10/28/24 02:18 MPV 11.1 fL (7.4-10.4) H 10/28/24 02:18 Neut % (Auto) 72.9 % 10/28/24 02:18 Lymph % (Auto) 14.7 % 10/28/24 02:18 [place] % (Auto) 7.7 % 10/28/24 02:18 Eos % (Auto) 2.6 % 10/28/24 02:18 Baso % (Auto) 0.7 % 10/28/24 02:18 Neut # (Auto) 10.53 10^3/uL (1.8-7.7) H 10/28/24 02:18 Lymph # (Auto) 2.1 10^3/uL (0.8-4.8) 10/28/24 02:18 [place] # (Auto) 1.1 10^3/uL (0.2-0.9) H 10/28/24 02:18 Eos # (Auto) 0.4 10^3/uL (0.0-0.8) 10/28/24 02:18 Baso # (Auto) 0.1 10^3/uL (0.0-0.1) 10/28/24 02:18 Nucleated RBC % (auto) 0 % 10/28/24 02:18 Nucleated RBCs # 0.0 /100WBC 10/28/24 02:18 Differential Comment Yes 10/20/24 15:30 PT 13.20 SECONDS (12.1-14.9) 10/20/24 10:47 INR 0.94 (0.8-1.2) 10/20/24 10:47 APTT 61.2 SECONDS (23.9-36.7) H 10/25/24 10:41 D-Dimer 1.70 ug/mLFEU (0-0.59) H 10/19/24 12:07 Sodium 139 mmol/L (136-145) 10/28/24 02:18 Potassium 4.6 mmol/L (3.5-5.1) 10/28/24 02:18 Chloride 105 mmol/L (98-107) 10/28/24 02:18 Carbon Dioxide 23 mmol/L (22-29) 10/28/24 02:18 Anion Gap 15.6 (5-19) 10/28/24 02:18 BUN 48 mg/dL (8-23) H 10/28/24 02:18 Creatinine 3.6 mg/dL (0.5-0.9) H 10/28/24 02:18 GFR Calculation 12.6 mL/min (90-130) L 10/28/24 02:18 Glucose 241 mg/dL (65-115) H 10/28/24 02:18 POC Glucose 198 mg/dL (70-110) H 10/28/24 11:06 Calculated Osmolality 309 mOsm/kg (285-295) H 10/28/24 02:18 Uric Acid 7.0 mg/dL (2.4-5.7) H 10/20/24 03:17 Calcium 8.6 mg/dL (8.5-10.5) 10/28/24 02:18 Phosphorus 4.3 mg/dL (2.5-4.5) 10/23/24 02:47 Magnesium 2.2 mg/dL (1.7-2.3) 10/27/24 02:07 Total Bilirubin 0.2 mg/dL (0.15-1.2) 10/26/24 02:21 AST 14 U/L (0-32) 10/26/24 02:21 ALT 14 U/L (0-33) 10/26/24 02:21 Alkaline Phosphatase 108 U/L (35-105) H 10/26/24 02:21 Troponin T Baseline 60 ng/L (0-10) H 10/17/24 02:40 Troponin T 120 Minute 56.40 ng/L (0-10) H 10/17/24 04:50 Delta Troponin T -3.60 ABS# (0-10) L 10/17/24 04:50 Troponin T Hi Sens 6Hr 62.07 ng/L (0-10) H 10/17/24 08:43 Troponin T Hi Sens 6Hr Delta 2.07 ng/L (0-12) 10/17/24 08:43 NT-Pro-B Natriuret Pep 02505 pg/mL (0-125) H 10/17/24 02:40 Total Protein 5.4 g/dL (6.6-8.7) L 10/26/24 02:21 Albumin 2.7 g/dL (3.5-5.2) L 10/26/24 02:21 Globulin 2.7 g/dL (1.3-4.6) 10/26/24 02:21 Ihnoj-8-Cwptjhmsu 0.4 g/dL (0.2-0.3) H 10/17/24 08:43 Bxbru-5-Uxudgsfwc 1.1 g/dL (0.5-0.9) H 10/17/24 08:43 Qujp-9-Edrqurgs 0.3 g/dL (0.4-0.6) L 10/17/24 08:43 Bful-6-Irpfsxtb 0.4 g/dL (0.2-0.5) 10/17/24 08:43 Gamma Globulins 1.0 g/dL (0.8-1.7) 10/17/24 08:43 Abnorm Protein Band 1 Not Reportable 10/17/24 08:43 25-OH Vitamin D Total 6 ng/mL (30-100) L 10/18/24 09:40 1,25 Dihydroxy Vit D2 <8 pg/mL 10/17/24 08:43 1,25 Dihydroxy Vit D3 9 pg/mL 10/17/24 08:43 TSH 1.13 uIU/mL (0.27-4.20) 10/18/24 02:24 PTH Intact 90.5 pg/mL (15-65) H 10/18/24 09:40 Calcium (PTH Intact) 8.5 mg/dL (8.5-10.5) 10/18/24 09:40 Urine Color Yellow (Yellow) 10/18/24 13:41 Urine Appearance Clear (CLEAR) 10/18/24 13:41 Urine pH 6.5 (5-7) 10/18/24 13:41 Ur Specific [place] 1.015 (1.005-1.030) 10/18/24 13:41 Urine Protein 3+ (Negative) A 10/18/24 13:41 Urine Glucose (UA) 2+ (Normal) H 10/18/24 13:41 Urine Ketones Negative (Negative) 10/18/24 13:41 Urine Blood 1+ (Negative) A 10/18/24 13:41 Urine Nitrate Negative (Negative) 10/18/24 13:41 Urine Bilirubin Negative (Negative) 10/18/24 13:41 Urine Urobilinogen 0.2 mg/dL (Negative) 10/18/24 13:41 Ur Leukocyte Esterase 1+ (Negative) A 10/18/24 13:41 Urine RBC 3-5 /hpf (0-2) 10/18/24 13:41 Urine WBC 51-100 /hpf (0-5) H 10/18/24 13:41 Ur Squamous Epith Cells 0-5 /hpf (0-5) 10/18/24 13:41 Amorphous Sediment Not Reportable 10/18/24 13:41 Urine Bacteria None seen /hpf (NONE) 10/18/24 13:41 Hyaline Casts 10.73 /lpf 10/18/24 13:41 Ur Random Sodium 85 mmol/L 10/18/24 13:41 U Abnormal Prot Band 2 Not Reportable 10/17/24 08:43 U Abnormal Prot Band 3 Not Reportable 10/17/24 08:43 Fluid Color Yellow 10/20/24 15:30 Fluid Appearance Cloudy 10/20/24 15:30 Fluid pH 8.0 10/20/24 15:30 Fluid WBC 341 /uL 10/20/24 15:30 Fluid RBC 1.000 10^3/uL 10/20/24 15:30 Fld Polynuclear WBCs # 0.008 10/20/24 15:30 Fld Polynuclear WBCs % 2.300 % 10/20/24 15:30 Fl Mononucl WBCs #(Auto) 0.333 10/20/24 15:30 Fl Mononuclear % Auto 97.700 % 10/20/24 15:30 Fld Crystal Laterality Right pleural 10/20/24 15:30 Fluid Glucose 225.0 mg/dL 10/20/24 15:30 Fluid Albumin 0.7 g/dL 10/20/24 15:30 Fluid LDH 65 U/L 10/20/24 15:30 Fluid Alk Phosphatase 10 IU/L 10/20/24 15:30 Fluid Cholesterol 14 mg/dL (0-200) 10/20/24 15:30 Fluid Uric Acid 7 mg/dL 10/20/24 15:30 Pleural Total Protein 1.0 g/dL 10/20/24 15:30 Pro Electrophoresis Int See note 10/17/24 08:43 Serum Immunofixation Normal pattern. 10/17/24 08:43 LEEANN Screen Negative (NEGATIVE) 10/17/24 08:43 ANCA Screen Negative (NEGATIVE) 10/17/24 08:43 ANCA Titer Not Reportable 10/17/24 08:43 Anti-ds DNA IgG Ab <1 IU/mL 10/17/24 08:43 Glomerular Base Mem IgG <1.0 AI 10/17/24 08:43 Free Dragoon Light Chains 101.4 mg/L (3.3-19.4) H 10/17/24 08:43 Free Lambda Light Chain 66.9 mg/L (5.7-26.3) H 10/17/24 08:43 Free Dragoon/Lambda Ratio 1.52 (0.26-1.65) 10/17/24 08:43 Adenovirus (PCR) Not detected (NOT DETECT) 10/17/24 15:55 C. pneumoniae DNA (PCR) Not detected (NOT DETECT) 10/17/24 15:55 Coronavirus 229E (PCR) Not detected (NOT DETECT) 10/17/24 15:55 Hep Bs Antigen Non-reactive (Nonreactive) 10/17/24 08:43 Hep Bs Antibody < 3.5 (11.5-1000) L 10/17/24 08:43 Hep B Core Total Ab Non-reactive (Nonreactive) 10/17/24 08:43 Hepatitis C Antibody Non-reactive (Nonreactive) 10/17/24 08:43 Human Metapneumovir PCR Not detected (NOT DETECT) 10/17/24 15:55 Influenza A (H1) PCR Not detected (NOT DETECT) 10/17/24 15:55 Influ A (H1/09) PCR Not detected (NOT DETECT) 10/17/24 15:55 Influenza A (H3) PCR Not detected (NOT DETECT) 10/17/24 15:55 Influenza Type A (PCR) Not detected (NOT DETECT) 10/17/24 15:55 Influenza Type B (PCR) Not detected (NOT DETECT) 10/17/24 15:55 M. pneumoniae (PCR) Not detected (NOT DETECT) 10/17/24 15:55 Parainfluenza 1 (PCR) Not detected (NOT DETECT) 10/17/24 15:55 Parainfluenza 2 (PCR) Not detected (NOT DETECT) 10/17/24 15:55 Parainfluenza 3 (PCR) Not detected (NOT DETECT) 10/17/24 15:55 Parainfluenza 4 (PCR) Not detected (NOT DETECT) 10/17/24 15:55 RSV Type A (PCR) Not detected (NOT DETECT) 10/17/24 15:55 RSV Type B (PCR) Not detected (NOT DETECT) 10/17/24 15:55 Entero/Rhino (PCR) Not detected (NOT DETECT) 10/17/24 15:55 SARS-CoV-2 (PCR) Not detected (NOT DETECT) 10/17/24 15:55 Phospholip A2 Rec IFA Negative (NEGATIVE) 10/17/24 08:43 Phospholip A2 Rec RAÚL <4 RU/mL 10/17/24 08:43 Vitals Last Vital Signs Temp 97.9 F 10/28/24 11:50 Pulse 64 10/28/24 11:50 Resp 17 10/28/24 11:50 BP 135/73 10/28/24 11:50 Pulse Ox 97 10/28/24 11:50 O2 Del Method Nasal Cannula 10/28/24 09:33 O2 Flow Rate 2 10/28/24 09:33 Discharge Plan Discharge Patient Disposition: Xfer SNF Condition: Stable Prescriptions: New isosorbide mononitrate 30 mg Tablet Extended Release 24 Hr 30 mg PO DAILY Qty: 30 0RF clopidogrel 75 mg Tablet 75 mg PO DAILY Qty: 90 0RF amlodipine 5 mg Tablet 5 mg PO DAILY Qty: 30 0RF metoprolol tartrate 50 mg Tablet 50 mg PO BID@0900,2100 Qty: 60 0RF nitroglycerin 0.4 mg Tablet, Sublingual 0.4 mg sublingual Q5M PRN (Reason: Chest Pain) Qty: 25 0RF Eliquis 5 mg tablet 5 mg PO BID Qty: 90 0RF Continued albuterol sulfate [Ventolin HFA] 90 mcg/actuation HFA aerosol inhaler 2 puff inhalation Q6H PRN (Reason: shortness of breath or wheezing) Qty: 8.5 0RF magnesium 250 mg tablet 250 mg PO DAILY gabapentin 100 mg capsule 100 mg PO BID PRN (Reason: nerve pain) (DME) rollaid walker with seat See Rx Instructions .Route .MEDSUPPLY Qty: 1 0RF Rx Instructions: As directed ezetimibe 10 mg tablet 10 mg PO DAILY Qty: 90 1RF bumetanide 1 mg tablet 1 mg PO BID Qty: 100 0RF omeprazole 40 mg capsule,delayed release(DR/EC) 40 mg PO BID Qty: 120 1RF ondansetron 4 mg tablet,disintegrating 4 mg PO Q6H PRN (Reason: nausea and vomiting) Qty: 60 0RF Marine Phytoplankton 250 mg PO DAILY PreserVision AREDS 4,296 mcg-226 mg-90 mg capsule 1 cap PO BID galantamine 4 mg tablet 4 mg PO BID Qty: 60 6RF Rx Instructions: administer with AM and PM meals Changed insulin degludec [Tresiba FlexTouch U-200] 200 unit/mL (3 mL) insulin pen 22 unit SUBCUT DAILY Qty: 9 0RF Held Ozempic 2 mg/dose (8 mg/3 mL) pen injector 2 mg SUBCUT .weekly Qty: 3 3RF Hold Instructions: Resume on 11/11/24. Rx Instructions: Sunday irbesartan 150 mg tablet 150 mg PO DAILY Hold Instructions: Resume on 11/11/24. Discharge Order = DC NOW: Discharge Order (Routine); Ordered 10/28/24 Ordered By: Tom Gonzalez Referrals: [facility] [Outside] Lilli Cote FNP [Nurse Practitioner, Cardiology] - 11/04/24 1:30 pm Referral Note: We have notified your physician's clinic of the need for a follow-up appointment to be scheduled. If you have not heard from them within the next 2 business days, please call them directly. HEIDI HASSAN MD [Occupational Therapist, Nephrology] - 11/05/24 8:50 am Referral Note: CKD Jose Bah MD [Primary Care Provider, Family Practice] - 12/09/24 9:30 am Referral Note: Clinic will add you to the waitlist should there be an opening become available a bit sooner. Discharge Diet: Cardiac Discharge Activity: Increase activity as tolerated, As per PT/OT instructions and Oxygen as instructed Patient Instructions: Metoprolol (By mouth), Nitroglycerin (By mouth), Amlodipine (By mouth), Isosorbide Mononitrate (By mouth) (Imdur, Imdur ER, Ismo), Clopidogrel (By mouth) (Plavix), Apixaban (By mouth) (Eliquis), Chronic Kidney Disease (DC), Cardiac Rehabilitation (DC), Coronary Intravascular Stent Placement (DC), CHF Stoplight, Chest Pain Stoplight, Opioid Safety, Post Angiogram Home Care Instructions, Patient Portal & Cristiana Instructions Activity Restrictions/Additional Instructions: Continue 2 L nasal cannula oxygen, wean off gradually targeting oxygen saturation 90-92%. Please recheck chemistry in 3 days and again in 1 week to reassess renal function. Follow-up with nephrology for reassessment in 2 weeks. Follow-up with your primary doctor regarding esophageal stricture, EGD arrangements. Discharge Attestations Time Spent in Discharge Care*: greater than 30 min Quality Metrics Clinical Quality Measures [ No reported AMI, CVA or VTE this stay] Coding Level of Care Code 36688 Total time (in minutes) for Discharge: 50 Diagnoses Acute heart failure with mildly reduced ejection fraction (HFmrEF) I50.21 Paroxysmal atrial fibrillation I48.0 Essential hypertension I10 Insulin dependent diabetes mellitus CKD (chronic kidney disease), stage IV N18.4
--- NOTE | 2024-10-28 15:58 | PC.NURSE ---
updated SNF talked to Ms Bhatia of [facility] about pt's discharge instructions and meds and appointments around 3 pm. [facility] has been here to pick her up around 1530pm.
--- NOTE | 2024-10-28 18:17 | P.PN_ITS ---
Subjective 2 Subjective: no new c/o Medications: Reviewed: Yes Vitals/I&O/Wt Last Vital Signs Temp 97.9 F 10/28/24 11:50 Pulse 65 10/28/24 15:44 Resp 17 10/28/24 11:50 BP 135/73 10/28/24 11:50 Pulse Ox 97 10/28/24 11:50 O2 Del Method Nasal Cannula 10/28/24 09:33 O2 Flow Rate 2 10/28/24 09:33 10/28/24 10/28/24 10/28/24 06:59 14:59 22:59 Intake Total 1000 / 3668.333 458.333 / 458.333 Output Total 350 / 1550 200 / 200 Balance 650 / 2118.333 258.333 / 258.333 Weight last 48 hrs Weight 97.522 kg Weight 97.296 kg Physical Exam 2 Narrative: The patient is lying comfortably in bed. Vital signs noted. She is using nasal cannula oxygen. HEENT is normocephalic atraumatic. Neck is supple. Lungs -improved air movement b/l. Heart positive S1-S2, tachycardia Abdomen soft positive bowel sounds extremities-1 + bilateral leg edema. Neuro awake alert oriented x 3. Moves all extremities. Urinary Catheter Management: Vazquez: Cath Placed During This Visit: yes, but has since been removed by the nurse Reason for Continuing Indwelling Catheter: Decision to DC Catheter Urinary Catheter Date of Insertion: 10/17/24 Date Urinary Catheter Removed: 10/28/24 Time Urinary Catheter Discontinued: 14:18 Data 10/28/24 02:18 10/28/24 02:18 A&P Assessment and plan 1. CKD (chronic kidney disease), stage IV: 1. Acute on chronic kidney disease: Creatinine is in the 1.3-2 range chronically and followed by [facility], presumed secondary to diabetic nephropathy. Creatinine on presentation was 2.7 , currently at 3.3 and is stable. UA with 4+ protein and 1+ blood. Patient likely has diabetic nephropathy with nephrotic range proteinuria. - Pt received IV contrast with LHC - Cr in 3 range - resume diuretics -arrange nephrology follow-up in 1 to 2 weeks postdischarge. Noted renal ultrasound results, no hydronephrosis and normal-sized kidneys. 2. Congestive cardiac failure, cardiology following patient , s/p LHC Will hold diuretics temporarily and give gentle IV fluids pre and post cath if left heart cath planned. 3. Hypertension: Continue current meds 4. Anemia: Hemoglobin 10.3, monitor Seen and examined with the nurse using audiovisual equipment. The patient consents to telehealth. Plan: Anticoagulation and diuretics. for cardiac cath PDMP PDMP Reviewed: Not Reviewed Attestations 2 Medical Necessity Statement*: per jane Coding Level of Care Code Acute Code for g Fwd Diagnoses CKD (chronic kidney disease), stage IV N18.4
--- NOTE | 2024-10-31 09:42 | PM.CONSULT ---
Providers/Reason For Consult Attending Physician: Tom Gonzalez Primary Care Provider: Jose Bah MD History of Present Illness History of Present Illness Sandra Lemus is a 69 year old female Medications/Allergies Home Medications ?Medication ?Instructions ?Recorded ?Confirmed ?Last Taken ?Type Marine Phytoplankton 250 mg PO DAILY 10/04/22 10/17/24 10/16/24 History semaglutide 2 mg/dose (8 mg/3 mL) 2 mg (0.75 mL) SUBCUT .weekly #3 mL 05/31/23 10/17/24 10/12/24 Rx subcutaneous pen injector (Ozempic) Held on 10/28/24. Instructions: Resume on 11/11/24. vitamins A,C,I-jrjw-kdafwz 4,296 1 cap PO BID 06/19/23 10/17/24 Unknown History mcg-226 mg-90 mg capsule (PreserVision AREDS) albuterol sulfate 90 mcg/actuation 2 puff inhalation Q6H PRN 02/13/24 10/17/24 Unknown Rx aerosol inhaler (Ventolin HFA) shortness of breath or wheezing #8.5 grams galantamine 4 mg tablet 4 mg PO BID #60 tabs 05/20/24 10/17/24 Unknown Rx gabapentin 100 mg capsule 100 mg PO BID PRN nerve pain 08/05/24 10/17/24 Unknown History magnesium 250 mg tablet 250 mg PO DAILY 08/05/24 10/17/24 10/16/24 History rollaid walker with seat #1 ea 08/05/24 10/17/24 Unknown Rx bumetanide 1 mg tablet 1 mg PO BID #100 tabs 09/01/24 10/17/24 Unknown Rx ezetimibe 10 mg tablet 10 mg PO DAILY #90 tabs 09/01/24 10/17/24 10/16/24 Rx omeprazole 40 mg capsule,delayed 40 mg PO BID #120 caps 10/15/24 10/17/24 10/16/24 Rx release ondansetron 4 mg disintegrating 4 mg PO Q6H PRN nausea and 10/15/24 10/17/24 Unknown Rx tablet vomiting #60 tabs irbesartan 150 mg tablet 150 mg PO DAILY 10/17/24 10/17/24 10/16/24 History Held on 10/28/24. Instructions: Resume on 11/11/24. amlodipine 5 mg tablet 5 mg PO DAILY #30 tabs 10/28/24 Unknown Rx apixaban 5 mg tablet (Eliquis) 5 mg PO BID #90 tabs 10/28/24 Unknown Rx clopidogrel 75 mg tablet 75 mg PO DAILY #90 tabs 10/28/24 Unknown Rx insulin degludec 200 unit/mL (3 22 unit (0.11 mL) SUBCUT DAILY #9 10/28/24 10/17/24 10/16/24 Rx mL) subcutaneous pen (Tresiba mL FlexTouch U-200 insulin) isosorbide mononitrate 30 mg 30 mg PO DAILY #30 tabs 10/28/24 Unknown Rx tablet,extended release 24 hr metoprolol tartrate 50 mg tablet 50 mg PO BID@0900,2100 #60 tabs 10/28/24 Unknown Rx nitroglycerin 0.4 mg sublingual 0.4 mg sublingual Q5M PRN Chest 10/28/24 Unknown Rx tablet Pain #25 tabs Allergies Allergy/AdvReac Type Severity Reaction Status Date / Time sitagliptin (From Januvia) Allergy Unknown Unknown Verified 10/15/24 14:55 empagliflozin (From Allergy Unknown Verified 10/15/24 14:55 Jardiance) PFSH Acute PFSH: Medical History (Updated 10/31/24 @ 01:25 by Sharon Ruiz MD) CKD (chronic kidney disease), stage IV CKD stage 3b, GFR 30-44 ml/min Diabetic nephropathy Squamous cell carcinoma of skin Nephrolithiasis History of ovarian cancer Chronic back pain Stage 3a chronic kidney disease (CKD) HLD (hyperlipidemia) Insulin dependent diabetes mellitus Essential hypertension Obesity Surgical History History of carpal tunnel release History of decompression of ulnar nerve H/O: hysterectomy Social History Smoking and tobacco/nicotine status: never used tobacco/nicotine Second hand smoke exposure: No Alcohol intake: current Alcohol intake frequency: few times a month Substance/Drug Use: never Additional social history: She wants full code as discussed with Tenzin and myself 10/17/2024 by Derian Hsieh MD Caregiver/support person: No Lives independently: No Household members: spouse Marital status: Number of children: 1 service: No Current occupational status: unemployed Current occupational exposures/hazards: No 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 Pets and animals: No Do you think of yourself as: Straight/Heterosexual Current gender identity: Female Vitals/I&O/Wt Last Vital Signs Temp 97.9 F 10/28/24 11:50 Pulse 65 10/28/24 15:44 Resp 17 10/28/24 11:50 BP 135/73 10/28/24 11:50 Pulse Ox 97 10/28/24 11:50 O2 Del Method Nasal Cannula 10/28/24 09:33 O2 Flow Rate 2 10/28/24 09:33 Physical Exam Urinary Catheter Management: Vazquez: Cath Placed During This Visit: yes, but has since been removed by the nurse Reason for Continuing Indwelling Catheter: Accurate Measurement of Urinary Output in Critically Ill Patients Urinary Catheter Date of Insertion: 10/17/24 Date Urinary Catheter Removed: 10/28/24 Time Urinary Catheter Discontinued: 14:18 Data 10/28/24 02:18 10/28/24 02:18 A&P PDMP PDMP Reviewed: Not Reviewed Coding Level of Care Code Acute Code for Chg Fwd
== END 2024-10-28 15:55 | disposition skilled nursing facility (03) | DRG 321 ==
LOC: ER 05:26 → ER IP 07:08 → CSU 13:46
PROVIDERS: Internal Medicine; Internal Medicine Cardiovascular Disease; Internal Medicine Nephrology; Student in an Organized Health Care Education/Training Program; Admitting Provider Internal Medicine; Emergency Provider Student in an Organized Health Care Education/Training Program; PCP Family Medicine; Visit Provider Internal Medicine
PROC: 027136Z Dilation of Coronary Artery, Two Arteries with Three Drug-eluting Intraluminal Devices, Percutaneous Approach (ICD-10-PCS; principal; 2024-10-27 07:00)
PROC: 027136Z Dilation of Coronary Artery, Two Arteries with Three Drug-eluting Intraluminal Devices, Percutaneous Approach (ICD-10-PCS; 2024-10-27 07:00)
DX: I13.0 Hypertensive heart and chronic kidney disease with heart failure and stage 1 through stage 4 chronic kidney disease, or unspecified chronic kidney disease (principal); I50.23 Acute on chronic systolic (congestive) heart failure; N18.4 Chronic kidney disease, stage 4 (severe); N17.9 Acute kidney failure, unspecified; I48.0 Paroxysmal atrial fibrillation; E11.22 Type 2 diabetes mellitus with diabetic chronic kidney disease; Z79.4 Long term (current) use of insulin; Z79.85 Long-term (current) use of injectable non-insulin antidiabetic drugs; R91.8 Other nonspecific abnormal finding of lung field; E66.9 Obesity, unspecified; Z68.38 Body mass index [BMI] 38.0-38.9, adult; I27.20 Pulmonary hypertension, unspecified; E78.5 Hyperlipidemia, unspecified; I42.9 Cardiomyopathy, unspecified; K21.9 Gastro-esophageal reflux disease without esophagitis
CPT/HCPCS: 32555; 36415; 36416; 51702; 71045; 71250; 76770; 78014; 78452; 80048; 80053; 80503; 81001; 82042; 82306; 82310; 82465; 82652; 82945; 82962; 83520; 83615; 83735; 83880; 83883; 83970; 83986; 84075; 84100; 84155; 84157; 84165; 84300; 84443; 84484; 84550; 84560; 85025; 85347; 85378; 85610; 85730; 86036; 86038; 86225; 86255; 86334; 86705; 86706; 86803; 87040; 87070; 87075; 87086; 87205; 87340; 87486; 87581; 87633; 88112; 88305; 89050; 93005; 93017; 93306; 93458; 93971; 94640; 94760; 96372; 96374; 96375; 97110; 97116; 97162; 97167; 97530; 97535; 99152; 99153; 99285; A9270; A9500; A9540; A9567; C1725; C1769; C1874; C1887; C1894; C9600; C9601; J0696; J1644; J1650; J1815; J1938; J2250; J2405; J2785; J3010; J3490; J7030; J9999; Q0163; Q3014; Q9967

== ENCOUNTER 2024-10-30 19:50 | Inpatient (IN) | payer MEDICARE, SELFPAY ==
[2024-10-30] VITALS (9 sets, daily range): BP systolic 144–175; BP diastolic 70–90; PULSE 64–72; RESP 14–18; TEMP 36.5; O2SAT 91–92; BMI 33.6
--- OUTSIDE RECORDS SUMMARY | 2024-10-30 19:56 | XMS_ITS | Encounter Summary ---
Author Organization [facility] Address [address] [place] [address] Care Team Providers Care Painter Tumbling Barrel Name Role Phone Mau Terry MD Primary Care Provider [phone] Encounter Details Date Type Department Care Team (Latest Contact Info) Description 08/27/2002 Outpatient Historical [facility] [address] [place] [address] Chelita Luna, DRAPERY INSTALLER [address] [place] [address] HYPERSOMNI W SLEEP APNEA (Primary Dx) Social History Tobacco Use Types Packs/Day Years Used Date Smoking Tobacco: Never Assessed Comments Unknown Sex and Gender Information Value Date Recorded Sex Assigned at Not on file Legal Sex Female 3:01 AM [employer] Gender Identity Not on file Sexual Orientation Not on file documented as of this encounter Plan of Treatment Not on file documented as of this encounter Visit Diagnoses Diagnosis Hypersomnia with sleep apnea, unspecified- Primary documented in this encounter Care Teams Painter Tumbling Barrel Relationship Specialty Start Date End Date Mau Terry MD [address] [place] [id number] PCP - General 02/28/06 07/12/14 documented as of this encounter
--- OUTSIDE RECORDS SUMMARY | 2024-10-30 19:56 | XMS_ITS | Encounter Summary ---
Author Organization [facility] Address [address] [place] [address] Care Team Providers Care Review Consultant Name Role Phone Mau Terry MD Primary Care Provider [phone] Encounter Details Date Type Department Care Team (Late st Contact Info) Description 01/19/2004 Outpatient Historical [facility] General and Trauma Surgery-[address] [place] [address] Alejo Burton MD [address] 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
--- OUTSIDE RECORDS SUMMARY | 2024-10-30 19:56 | XMS_ITS | Encounter Summary ---
Author Organization [facility] Address [address] [place] [address] Care Team Providers Care Bakery Chef Name Role Phone Mau Terry MD Primary Care Provider [phone] Encounter Details Date Type Department Care Team (Latest Contact Info) Description 08/12/2002 Outpatient Historical [facility] Cardiology- [place] [address] [place] [address] Richard Cantor MD NO ADDRESS ON FILE PALPITATIONS (Primary Dx); PRECORDIAL PAIN Social History Tobacco Use Types Packs/Day Years Used Date Smoking Tobacco: Never Assessed Comments Unknown Sex and Gender Information Value Date Recorded Sex Assigned at Not on file Legal Sex Female 3:01 AM NEWS EDITOR Gender Identity Not on file Sexual Orientation Not on file documented as of this encounter Plan of Treatment Not on file documented as of this encounter Visit Diagnoses Diagnosis Palpitations- Primary Precordial pain documented in this encounter Care Teams Bakery Chef Relationship Specialty Start Date End Date Mau Terry MD [facility] [address] [place] [phone] PCP - General 02/28/06 07/12/14 documented as of this encounter
--- OUTSIDE RECORDS SUMMARY | 2024-10-30 19:56 | XMS_ITS | Encounter Summary ---
Author Organization [facility] Address [address] [place] [address] Care Team Providers Care Pc Installation Engineer Name Role Phone Mau Terry MD Primary Care Provider [phone] Encounter Details Date Type Department Care Team (Latest Contact Info) Description 01/28/2004 Outpatient Historical [facility] [address] 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
--- OUTSIDE RECORDS SUMMARY | 2024-10-30 19:56 | XMS_ITS | Encounter Summary ---
Author Organization [facility] Address [address] [place] [address] Care Team Providers Care Industrial Truck Driver Name Role Phone Mau Terry MD Primary Care Provider [phone] Encounter Details Date Type Department Care Team (Latest Contact Info) Description 06/19/2002 Outpatient Historical [facility] Ruddy Calloway, Jonh Howell MD [address] [place] [address] URIN TRACT INFECTION NOS (Primary Dx); LUMP OR MASS IN BREAST; SLEEP DISTURBANCES NEC; ABNORM ELECTROCARDIOGRAM Social History Tobacco Use Types Packs/Day Years Used Date Smoking Tobacco: Never Assessed Comments Unknown Sex and Gender Information Value Date Recorded Sex Assigned at Not on file Legal Sex Female 3:01 AM QUILL CLEANING MACHINE OPERATOR Gender Identity Not on file Sexual Orientation Not on file documented as of this encounter Plan of Treatment Not on file documented as of this encounter Visit Diagnoses Diagnosis Urinary tract infection, site not specified- Primary Lump or mass in breast Other sleep disturbances Nonspecific abnormal electrocardiogram (ECG) (EKG) documented in this encounter Care Teams Industrial Truck Driver Relationship Specialty Start Date End Date Mau Terry MD [address] [place] [phone] PCP - General 02/28/06 07/12/14 documented as of this encounter
--- OUTSIDE RECORDS SUMMARY | 2024-10-30 19:56 | XMS_ITS | Encounter Summary ---
Author Organization [facility] Address [address] [place] [address] Care Team Providers Care Commercial Lines Account Manager Name Role Phone Mau Terry MD Primary Care Provider [phone] Encounter Details Date Type Department Care Team (Latest Contact Info) Description 01/03/2004 Outpatient Historical [facility] [id number] [place] [address] AMBULANCE, 2 [facility] OPEN WOUND SCALP-COMPL (Primary Dx) Social History Tobacco Use Types Packs/Day Years Used Date Smoking Tobacco: Never Assessed Comments Unknown Sex and Gender Information Value Date Recorded Sex Assigned at Not on file Legal Sex Female 3:01 AM OXYACETYLENE TORCH OPERATOR Gender Identity Not on file Sexual Orientation Not on file documented as of this encounter Plan of Treatment Not on file documented as of this encounter Visit Diagnoses Diagnosis Open wound of scalp, complicated- Primary documented in this encounter Care Teams Commercial Lines Account Manager Relationship Specialty Start Date End Date Mau Terry MD [address] [place] [phone] PCP - General 02/28/06 07/12/14 documented as of this encounter
--- OUTSIDE RECORDS SUMMARY | 2024-10-30 19:56 | XMS_ITS | Encounter Summary ---
Author Organization [facility] Address [address] [place] [address] Care Team Providers Care Filler Shaker Name Role Phone Mau Terry MD Primary Care Provider [phone] Encounter Details Date Type Department Care Team (Latest Contact Info) Description 07/31/2002 Outpatient Historical [facility] Jonh Fox Jr., MD [address] [place] [address] FEMALE STRESS INCONTINENCE (Primary Dx); ALLERGIC RHINITIS NOS; HEARING LOSS NOS; SLEEP DISTURBANCES NEC Social History Tobacco Use Types Packs/Day Years Used Date Smoking Tobacco: Never Assessed Comments Unknown Sex and Gender Information Value Date Recorded Sex Assigned at Not on file Legal Sex Female 3:01 AM 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
--- OUTSIDE RECORDS SUMMARY | 2024-10-30 19:56 | XMS_ITS | Encounter Summary ---
Author Organization [facility] Address [address] [place] [address] Care Team Providers Care Farm Loan Representative Name Role Phone Mau Terry MD Primary Care Provider [phone] Encounter Details Date Type Department Care Team (Latest Contact Info) Description 10/03/2006 Outpatient Historical [facility] Medicine-[place] [address] [place] [address] Mau Terry MD [address] [place] [phone] Unspecified Essential Hypertension (Primary Dx); Unspecified Infective Otitis Externa; Irritable Bowel Syndrome; Lateral Epicondylitis Social History Tobacco Use Types Packs/Day Years Used Date Smoking Tobacco: Never Assessed Comments Unknown Sex and Gender Information Value Date Recorded Sex Assigned at Not on file Legal Sex Female 3:01 AM LICENSED PSYCHOLOGIST DIRECTOR Gender Identity Not on file Sexual Orientation Not on file documented as of this encounter Plan of Treatment Not on file documented as of this encounter Visit Diagnoses Diagnosis Unspecified essential hypertension- Primary Infective otitis externa, unspecified Irritable bowel syndrome Lateral epicondylitis Lateral epicondylitis of elbow documented in this encounter Care Teams Farm Loan Representative Relationship Specialty Start Date End Date Mau Terry MD [address] [place] [phone] PCP - General 02/28/06 07/12/14 documented as of this encounter
--- OUTSIDE RECORDS SUMMARY | 2024-10-30 19:56 | XMS_ITS ---
Author Organization [facility] Care Team Providers Care Pediatric Audiologist Name Role Phone Yaima Cummings Unavailable Unavailable Erick Kelly Unavailable Unavailable Allergies and adverse reactions Code CodeSystem Substance Reaction Severity StartDate Concern Status 095188 RXNORM SITagliptin Unknown 10/28/2024 active 0213129 RXNORM Jardiance Unknown 10/28/2024 active Care Team Name Role Address Phone Organization Dates Erick Kelly [facility] [address] [place], [address], [place] (Office): [facility] 10/28/2024 - present Yaima Cummings [address], [address], [place] (Office): : [facility] 10/28/2024 - present Functional Status Code Name Recorded Time Value Entered By Ambulation 10/30/2024 Not assessed khopkins Ambulation 10/30/2024 Not assessed khopkins Ambulation 10/30/2024 Not assessed khopkins Ambulation 10/30/2024 Limited Assistance khopkins Bathing 10/30/2024 Limited Assistance - Dressing 10/30/2024 Limited Assistance khopkins Feeding or Eating 10/30/2024 Supervision horace Toileting 10/30/2024 Limited Assistance horace Transferring 10/30/2024 Limited Assistance horace Immunizations Immunization Status Vaccine Details Vaccine Code CodeSystem Date Notes TB 1 Step Mantoux (PPD) completed tuberculin skin test; unspecified formulation lotNumber: [id number] expiry: 02/20/2026 Mfg: Apisol Given 0.1 ml Left Forearm intradermally 98 CVX created date: 10/29/2024 consent date: 10/28/2024 administer ed date: 10/29/2024 Educated by on 10/30/2024 Medications Section Medication Name Status Code CodeSystem Dose Route Frequency Admin Type Sig Text Start Date End Date amLODIPine Besylate Oral Tablet 5 MG active 951355 RXNORM 1 tablet Oral one time a day Routine Give 1 tablet by mouth one time a day for HTN 2024 - Clopidogrel Bisulfate Oral Tablet 75 MG active 370105 RXNORM 1 tablet Oral one time a day Routine Give 1 tablet by mouth one time a day for A-Fib 2024 - Irbesartan Oral Tablet 150 MG active 431109 RXNORM 1 tablet Oral one time a day Routine Give 1 tablet by mouth one time a day 2024 - Ezetimibe Oral Tablet 10 MG active 002729 RXNORM 1 tablet Oral at bedtime Routine Give 1 tablet by mouth at bedtim e for Hyperl ipidem ia 2024 - Metoprolol Tartrate Oral Tablet 50 MG active 640954 RXNORM 1 tablet Oral two times a day Routine Give 1 tablet by mouth two times a day for HTN Hold If Systol ic B/P is <100 and Hold if Pulse <60 2024 - Gabapentin Capsule 100 MG active 669081 RXNORM 1 capsul e Oral two times a day Routine Give 1 capsul e by mouth two times a day for Nerve Pain 2024 - Omeprazole Capsule Delayed Release 40 MG active 006273 RXNORM 1 capsul e Oral two times a day Routine Give 1 capsul e by mouth two times a day for GERD 2024 - PreserVision AREDS Oral Tablet active 437183 RXNORM 1 tablet Oral one time a day Routine Give 1 tablet by mouth one time a day for Supple ment 2024 - Isosorbide Mononitrate ER Oral Tablet Extended Release 24 Hour 30 MG active 730250 RXNORM 1 tablet Oral in the morning Routine Give 1 tablet by mouth in the mornin g for A-Fib 2024 - Nitroglycerin Tablet Sublingual 0.4 MG active 424888 RXNORM 1 tablet Subling ual as needed PRN Give 1 tablet sublin gually every 5 minute s as needed for chest pain or other sighns /sympt oms of acute angina may repeat every 5 minute s x 2. If chest pain/a cute angina is not reliev ed after two doses of nitrog lyceri n, unless contra ry to advanc e direct alexsandra call 911; notify provid er jenniferedomer dillon. 2024 - Galantamine Hydrobromide Oral Tablet 4 MG aborted 700467 RXNORM 1 tablet Oral two times a day Routine Give 1 tablet by mouth two times a day 10/29 Proventil HFA Inhalation Aerosol Solution 108 (90 Base) MCG/ACT active 923088 RXNORM 2 puff Inhalat ion as needed PRN 2 puff inhale orally every 6 hours as needed for Shortn ess of breath 2024 - Apixaban Oral Tablet 5 MG active 707510 5 RXNORM 1 tablet Oral two times a day Routine Give 1 tablet by mouth two times a day for A-Fib 2024 - Galantamine Hydrobromide Oral Tablet 4 MG active 680960 RXNORM 1 tablet Oral two times a day Routine Give 1 tablet by mouth two times a day for Memory 2024 - Bumetanide Oral Tablet 1 MG active 228011 RXNORM 1 tablet Oral two times a day Routine Give 1 tablet by mouth two times a day for CHF 2024 - Tresiba FlexTouch Subcutaneous Solution Pen-injector 200 UNIT/ML active 267872 3 RXNORM 22 unit Subcuta neous one time a day Routine Inject 22 unit subcut aneous ly one time a day for DM 2024 - Magnesium Oral Tablet active 250 mg Oral one time a day Routine Give 250 mg by mouth one time a day for Supple ment 2024 - Ozempic (2 MG/DOSE) Subcutaneous Solution Pen-injector 8 MG/3ML active 170981 5 RXNORM 2 mg Subcuta neous one time a day Routine Inject 2 mg subcut aneous ly one time a day every Sun for DM 2024 - Problems Problem # Description Date of onset Resolved Date Code CodeSystem Concern Status 1 ACUTE SYSTOLIC (CONGESTIVE) HEART FAILURE 10/28/[address] active 2 CHRONIC KIDNEY DISEASE, STAGE 4 (SEVERE) 10/28/[address] active 3 ESSENTIAL (PRIMARY) HYPERTENSION 10/28/[address] active 4 GASTRO-ESOPHAGEAL REFLUX DISEASE WITHOUT ESOPHAGITIS 10/28/[address] active 5 HEART FAILURE, UNSPECIFIED 10/28/[address] active 6 HYPERLIPIDEMIA, UNSPECIFIED 10/28/[address] active 7 NAUSEA WITH VOMITING, UNSPECIFIED 10/28/[address] active 8 NEURALGIA AND NEURITIS, UNSPECIFIED 10/28/[address] active 9 OBESITY, CLASS 1 10/28/[address] active 10 PAROXYSMAL ATRIAL FIBRILLATION 10/28/[address] active 11 PERSONAL HISTORY OF OTHER DISEASES OF THE DIGESTIVE SYSTEM 10/28/[address] active 12 SHORTNESS OF BREATH 10/28/[address] active 13 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 10/28/[address] active Reason for Referral No Reasons for Referral Entered Social History Social History Observation Description Start Date End Date Code Code System Current Smoking Status Tobacco smoking consumption unknown 381648474 SNOMED CT Sex Assigned At Female 1955 69695-5 [facility] Gender Identity Vital Signs Code Code System Vitals Name Values and Units Timing Information 8462-4 LOINC Blood Pressure-Diastolic Value=70 Un its=mmHg 10/30/2024 8480-6 LOINC Blood Pressure-Systolic Ehnce=247 Un its=mmHg 10/30/2024 9279-1 LOINC Respiratory Rate Value=21.0 Units=/m in 10/30/2024 8310-5 LOINC Body Temperature Value=97.4 Units= F 10/30/2024 8867-4 LOINC Heart rate Value=65.0 Units=/min 01/2025 51043-5 [facility] O2 % BldC Oximetry Value=92.0 Units= % 10/30/2024 2339-0 [facility] Blood Sugar Vibvm=189.0 Units=mg/dL 10/30/2024 57076-7 [facility] Pain Level Value=3.0 10/29/2024
--- OUTSIDE RECORDS SUMMARY | 2024-10-30 19:56 | XMS_ITS | Encounter Summary ---
Author Organization [id number] Address [address] [place] [address] Care Team Providers Care Implementation Project Manager Name Role Phone Mau Terry MD Primary Care Provider [phone] Encounter Details Date Type Department Care Team (Late st Contact Info) Description 07/08/2002 Outpatient Historical [facility]dy Calloway, Jonh Howell MD [address] [place] [phone] LUMP OR MASS IN BREAST (Primary Dx) Social History Tobacco Use Types Packs/Day Years Used Date Smoking Tobacco: Never Assessed Comments Unknown Sex and Gender Information Value Date Recorded Sex Assigned at Not on file Legal Sex Female 3:01 AM THRILL PERFORMER Gender Identity Not on file Sexual Orientation Not on file documented as of this encounter Plan of Treatment Not on file documented as of this encounter Visit Diagnoses Diagnosis Lump or mass in breast- Primary documented in this encounter Care Teams Implementation Project Manager Relationship Specialty Start Date End Date Mau Terry MD [address] [place] [phone] PCP - General 02/28/06 07/12/14 documented as of this encounter
--- OUTSIDE RECORDS SUMMARY | 2024-10-30 19:56 | XMS_ITS | Encounter Summary ---
Author Organization [facility] Address [address] [place] [address] Care Team Providers Care Form Drafter Name Role Phone Mau Terry MD Primary Care Provider [phone] Encounter Details Date Type Department Care Team (Latest Contact Info) Description 10/29/2002 Outpatient Historical [facility] [address] [place] [address] [place] [address] Chelita Luna, BONE WORKER [address] [place] [address] INSOMNIA NEC (Primary Dx) Social History Tobacco Use Types Packs/Day Years Used Date Smoking Tobacco: Never Assessed Comments Unknown Sex and Gender Information Value Date Recorded Sex Assigned at Not on file 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
--- OUTSIDE RECORDS SUMMARY | 2024-10-30 19:56 | XMS_ITS | Encounter Summary ---
Author Organization [facility] Address [address] [place] [address] Care Team Providers Care Fraud Prevention Analyst Name Role Phone Mau Terry MD Primary Care Provider [phone] Encounter Details Date Type Department Care Team (Latest Contact Info) Description 01/13/2004 Outpatient Historical [facility] Medicine [place] [address] [facility] [address] [place] [address] Sven Kimabll, [place] NO ADDRESS ON FILE HEAD INJURY UNSPECIFIED (Primary Dx); HEADACHE; NAUSEA ALONE; OTHER MALAISE AND FATIGUE Social History Tobacco Use Types Packs/Day Years Used Date Smoking Tobacco: Never Assessed Comments Unknown Sex and Gender Information Value Date Recorded Sex Assigned at Not on file Legal Sex Female 3:01 AM 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
--- OUTSIDE RECORDS SUMMARY | 2024-10-30 19:56 | XMS_ITS | Encounter Summary ---
Author Organization [facility] Address [address] [place] [address] Care Team Providers Care Screedman Name Role Phone Mau Terry MD Primary Care Provider [phone] Encounter Details Date Type Department Care Team (Latest Contact Info) Description 01/28/2004 Outpatient [facility] [address] [facility] [facility] [address] [place] [address] Jose Tatum MD [address] [place] [address] AFT CARE HEAL TRAUM FRAC OTHER BONE (Primary Dx) Social History Tobacco Use Types Packs/Day Years Used Date Smoking Tobacco: Never Assessed Comments Unknown Sex and Gender Information Value Date Recorded Sex Assigned at Not on file Legal Sex Female 3:01 AM FOREST SUPERVISOR Gender Identity Not on file Sexual Orientation Not on file documented as of this encounter Plan of Treatment Not on file documented as of this encounter Visit Diagnoses Diagnosis Aftercare for healing traumatic fracture of other bone- Primary documented in this encounter Care Teams Screedman Relationship Specialty Start Date End Date Mau Terry MD [address] [place] [phone] PCP - General 02/28/06 07/12/14 documented as of this encounter
--- OUTSIDE RECORDS SUMMARY | 2024-10-30 19:56 | XMS_ITS | Encounter Summary ---
Author Organization [facility] Address [address] [place] [address] Care Team Providers Care Neck Pinner Name Role Phone Mau Terry MD Primary Care Provider [phone] Encounter Details Date Type Department Care Team (Latest Contact Info) Description 07/08/2002 Outpatient Historical [facility] Ear, Nose and Throat [address] [place] [address] [place] [address] TremontonJc MD NO ADDRESS ON FILE DISORDERS OF MASTOID NEC (Primary Dx) Social History Tobacco Use Types Packs/Day Years Used Date Smoking Tobacco: Never Assessed Comments Unknown Sex and Gender Information Value Date Recorded Sex Assigned at Not on file Legal Sex Female 3:01 AM CHIEF OF SAFETY AND PROTECTION Gender Identity Not on file Sexual Orientation Not on file documented as of this encounter Plan of Treatment Not on file documented as of this encounter Visit Diagnoses Diagnosis Other disorder of mastoid- Primary documented in this encounter Care Teams Neck Pinner Relationship Specialty Start Date End Date Mau Terry MD [address] [place] [phone] PCP - General 02/28/06 07/12/14 documented as of this encounter
--- OUTSIDE RECORDS SUMMARY | 2024-10-30 19:56 | XMS_ITS | Encounter Summary ---
Author Organization [facility] Address [address] [place] [address] Care Team Providers Care Screw Machine Operator Swiss Type Name Role Phone Mau Terry MD Primary Care Provider Encounter Details Date Type Department Care Team (Late st Contact Info) Description 05/30/2007 Outpatient [facility] [address] [place], [place] [address] Mau Terry MD [address] [place] [phone] Social History Tobacco Use Types Packs/Day Years Used Date Smoking Tobacco: Never Assessed Comments Unknown Sex and Gender Information Value Date Recorded Sex Assigned at Not on file Legal Sex Female 3:01 AM MUSICAL INSTRUMENTS ASSEMBLER Gender Identity Not on file Sexual Orientation Not on file documented as of this encounter Plan of Treatment Not on file documented as of this encounter Procedures Procedure Name Priority Date/Time Associated Diagnosis Comments MAMMO SCRN TO DIAG BILAT Routine 06/19/2007 9:48 AM MUSICAL INSTRUMENTS ASSEMBLER documented in this encounter Results * MAMMO SCRN TO DIAG BILAT (06/19/2007 9:48 AM MUSICAL INSTRUMENTS ASSEMBLER) Anatomical Region Laterality Modality Breast Other Narrative 06/19/2007 9:48 AM MUSICAL INSTRUMENTS ASSEMBLER Report Available in [facility] Procedure Note 05/25/2008 Report Available in [facility] us Mau Terry MD MAMMO ORDERABLES Final Result documented in this encounter Visit Diagnoses Not on filedocumented in this encounter Care Teams Screw Machine Operator Swiss Type Relationship Specialty Start Date End Date Mau Terry MD [address] [place] [phone] PCP - General 02/28/06 07/12/14 documented as of this encounter
--- OUTSIDE RECORDS SUMMARY | 2024-10-30 19:56 | XMS_ITS | Clinical Summary ---
Author Organization [facility] Address [address] [place] [address] Care Team Providers Care Agricultural Research Director Name Role Phone Unavailable Primary Care Provider [...] glucose scanning reader (FreeStyle Lucila 14 Day [place]) Misc Check blood sugars 4 times a [...] of blood transfusion s as patient is Ep[employer]alian 04/29/2012 01/01/2013 Abdominal or pelvic swelling , [...] on file Legal Sex Female 3:01 AM POULTRY TRIMMER Gender Identity Not on file Sexual Orientation [...] 04/29/2012 OSTEOPOROSIS SCREENING 2022 INFLUENZA VACCINE (#1) 2024 7, 01/06/2016, 02/06/2014, Additional history exists Procedures Procedure Name Priority Date/Time Associated Diagnosis Comments MICROALBUMIN/CREATIN INE RATIO, RANDOM UR Routine 07/06/2020 11:54 AM CDT Uncontrolled type 2 diabetes mellitus with hyperglycemia, with long-term current use of insulin ([facility]) LIPID PANEL Routine 07/06/2020 11:48 AM CDT Uncontrolled type 2 diabetes mellitus with hyperglycemia, with long-term current use of insulin ([facility]) HEMOGLOBIN A1C Routine 07/06/2020 11:48 AM CDT Uncontrolled type 2 diabetes mellitus with hyperglycemia, with long-term current use of insulin ([facility]) DIABETES EYE EXAM Routine 01/05/2020 MAMMO SCREEN BILAT W OR WO CAD Routine 12/29/2011 2:40 PM CDT Other screening mammogram from Last 3 Months or Most Recently Relevant to Health Maintenance Results * (ABNORMAL) MICROALBUMIN/CREATININE RATIO, RANDOM UR (07/06/2020 11:54 AM CDT) MICROALBUMIN, URINE 38.3 No Reference Range mg/dL 07/06/2020 2:17 PM CDT [facility] CREATININE, URINE 75.3 29.0 - 226.0 mg/dL 07/06/2020 2:17 PM CDT [facility] Comment:Reference Range vari es with fluid intake and diet. MICROALBUMIN/ CREAT RATIO, UR 508.6(H) <25.0 mg/g 07/06/2020 2:17 PM T [facility] Urine URINE SPECIMEN OBTAINED BY CLEAN CATCH PROCEDURE / Unknown Collection / Unknown 07/06/2020 11:54 AM CDT 07/06/2020 12:19 PM CDT Narrative [facility] - 07/06/2020 2:17 PM CDT Condition Microalbumin/Creat ratio Normal Males <17 Normal Females <25 Microalbuminuria Males 17-299 Microalbuminuria Females 25-299 Overt proteinuria >=300 us Corey Lou MD URINE ORDERABLES Final Result Performing Organization Address [facility] de Phone Number [facility] CLIA# [id number] [address] [place] [address] * (ABNORMAL) HEMOGLOBIN A1C (07/06/2020 11:48 AM CDT) HEMOGLOBIN A1C 8.1(H) See Comment % 07/06/2020 1:38 PM CDT [facility] EST. AVG GLUCOSE, A1C 186 mg/dL 07/06/2020 1:38 PM CDT [facility] Blood Venipuncture / Unknown 07/06/2020 11:48 AM CDT 07/06/2020 12:01 PM CDT [facility] - 07/06/2020 1:38 PM CDT HGB A1C INTERPRETATION NORMAL: <5.7% PRE-DIABETES: 5.7 - 6.4% DIABETES: 6.5% OR GREATER Falsely low A1C measurements can occur when: 1. Anemia and/or hemolytic anemia is present. 2. Hemoglobin variants present. 3. Renal failure. 4. Transfusion of blood product in the last 120 days. We recommend ordering a fructosamine test([id number]) to more accurately assess glycemic status if any of the above conditions are present. us Corey Lou MD CHEMISTRY ORDERABLES Final Res ult Performing Organization Address [facility] Co de Phone Number [facility] CLIA# [id number] [address] [place] [address] * (ABNORMAL) LIPID PANEL (07/06/2020 11:48 AM CDT) CHOLESTEROL 201(H) <200 mg/dL 07/06/2020 1:04 PM CDT [facility] TRIGLYCERIDE 334(H) <150 mg/dL 07/06/2020 1:04 PM CDT [facility] HDL 41 40 - 59 mg/dL 07/06/2020 1:04 PM CDT [facility] LDL CALCULATED 93 <100 mg/dL 07/06/2020 1:04 PM CDT [facility] NON-HDL CHOLESTEROL 160(H) <130 mg/dL 07/06/2020 1:04 PM CDT [facility] Blood Venipuncture / Unknown 07/06/2020 11:48 AM CDT 07/06/2020 12:02 PM CDT Narrative [facility] - 07/06/2020 1:04 PM [...] Lou MD CHEMISTRY ORDERABLES Final Res ult [facility] CLIA# [id number] [address] [place] [address] * DIABETES EYE EXAM (01/05/2020) us Abstract [...] Most Recently Relevant to Health Maintenance Insurance [employer] [place] [id number] Advance Directives For more information, please contact: [phone] Documents on File Type Date Recorded Patient Printed Circuit Board Panels Plater Expl anation Advance Directive POA 07/06/2020 11:34 [...]
--- OUTSIDE RECORDS SUMMARY | 2024-10-30 19:56 | XMS_ITS | Encounter Summary ---
Author Organization [facility] Address [address] [place] [address] Care Team Providers Care Tester Armature Or Fields Name Role Phone Mau Terry MD Primary Care Provider [phone] Encounter Details Date Type Department Care Team (Latest Contact Info) Description 11/23/2004 Outpatient Historical [facility] Medicine [place] [address] [facility] [address] [place] [phone] Sven Kimball PA NO ADDRESS ON FILE HYPERTENSION NOS (Primary Dx); LAPIDARIST DISORDER NOS Social History Tobacco Use Types Packs/Day Years Used Date Smoking Tobacco: Never Assessed Comments Unknown Sex and Gender Information Value Date Recorded Sex Assigned at Not on file Legal Sex Female 3:01 AM LOCATION DIRECTOR Gender Identity Not on file Sexual Orientation Not on file documented as of this encounter Plan of Treatment Not on file documented as of this encounter Visit Diagnoses Diagnosis Unspecified essential hypertension- Primary Unspecified disorders of nervous system documented in this encounter Care Teams Tester Armature Or Fields Relationship Specialty Start Date End Date Mau Terry MD [address] [place] [phone] PCP - General 02/28/06 07/12/14 documented as of this encounter
--- OUTSIDE RECORDS SUMMARY | 2024-10-30 19:56 | XMS_ITS | Encounter Summary ---
Author Organization [facility] Address [address] [place] [address] Care Team Providers Care Color Receiver Name Role Phone Unavailable Primary Care Provider Unavailabl e Encounter Details Date Type Department Care Team (Late st Contact Info) Description 07/30/[address] [facility] [address] [place] [phone] Radha Suarez, MEETING/EVENT PLANNER [address] [place] [phone] Pain in left hand Social History Tobacco Use Types Packs/Day Years Used Date Smoking Tobacco: Never Smokeless Tobacco: Never Alcohol Use Standard Drinks/Week Comments Yes 0 (1 standard drink = 0.6 oz pur e alcohol) rare Comments No Sex and Gender Information Value Date Recorded Sex Assigned at Not on file Legal Sex Female 3:01 AM GARNETT FEEDER Gender Identity Not on file Sexual Orientation [...] [facility].. Clinical correlation recommended. [id number] Narrative Procedure Note Luz Alarcon MD - [...] [facility] the [facility].. Clinical correlation recommended. [id number] Radha Suarez MEETING/EVENT PLANNER DIAGNOSTIC IMAGING ORDERABLES F inal Result documented in this encounter Visit Diagnoses Diagnosis Pain in left hand Pain in left hand documented in this encounter
--- OUTSIDE RECORDS SUMMARY | 2024-10-30 19:56 | XMS_ITS | Encounter Summary ---
Author Organization [facility] Address [address] [place] [address] Care Team Providers Care Field Trainer Name Role Phone Mau Terry MD Primary Care Provider [phone] Encounter Details Date Type Department Care Team (Late st Contact Info) Description 06/19/2007 Outpatient Historical [facility] [address] [facility] [address] [place] [address] Social History Tobacco Use Types Packs/Day Years Used Date Smoking Tobacco: Never Assessed Comments Unknown Sex and Gender Information Value Date Recorded Sex Assigned at Not on file Legal Sex Female 3:01 AM TAFE LECTURER Gender Identity Not on file Sexual Orientation Not on file documented as of this encounter Plan of Treatment Not on file documented as of this encounter Visit Diagnoses Not on filedocumented in this encounter Care Teams Field Trainer Relationship Specialty Start Date End Date Mau Terry MD [facility] [address] [place] [phone] PCP - General 02/28/06 07/12/14 documented as of this encounter
--- OUTSIDE RECORDS SUMMARY | 2024-10-30 19:56 | XMS_ITS | Encounter Summary ---
Author Organization [facility] Address [address] [place] [address] Care Team Providers Care Goodwill Ambassador Name Role Phone Mau Terry MD Primary Care Provider [phone] Encounter Details Date Type Department Care Team (Latest Contact Info) Description 01/19/2004 Outpatient Historical [facility] Internal Medicine- [place] [address] [facility] [address] [place] [address] Russell Madrid MD [address] [place] [phone] HYPERTENSION NOS (Primary Dx) Social History Tobacco Use Types Packs/Day Years Used Date Smoking Tobacco: Never Assessed Comments Unknown Sex and Gender Information Value Date Recorded Sex Assigned at Not on file Legal Sex Female 3:01 AM MEDICAL REVIEWER Gender Identity Not on file Sexual Orientation Not on file documented as of this encounter Plan of Treatment Not on file documented as of this encounter Visit Diagnoses Diagnosis Unspecified essential hypertension- Primary documented in this encounter Care Teams Goodwill Ambassador Relationship Specialty Start Date End Date Mau Terry MD [address] [place] [phone] PCP - General 02/28/06 07/12/14 documented as of this encounter
--- OUTSIDE RECORDS SUMMARY | 2024-10-30 19:56 | XMS_ITS | Encounter Summary ---
Author Organization [facility] Address [address] [place] [address] Care Team Providers Care Core Shaper Top Name Role Phone Mau Terry MD Primary Care Provider [phone] Encounter Details Date Type Department Care Team (Late st Contact Info) Description 05/16/2007 Outpatient Historical [facility] [address] [facility] [address] [place] [address] Social History Tobacco Use Types Packs/Day Years Used Date Smoking Tobacco: Never Assessed Comments Unknown Sex and Gender Information Value Date Recorded Sex Assigned at Not on file Legal Sex Female 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
--- OUTSIDE RECORDS SUMMARY | 2024-10-30 19:56 | XMS_ITS | Encounter Summary ---
Author Organization [facility] Address [address] [place] [address] Care Team Providers Care Power House Engineer Name Role Phone Mau Terry MD Primary Care Provider [phone] Encounter Details Date Type Department Care Team (Late st Contact Info) Description 06/19/2002 Outpatient Historical [facility] Jonh Fox Jr., MD [address] [place] [address] Social History Tobacco Use Types Packs/Day Years Used Date Smoking Tobacco: Never Assessed Comments Unknown Sex and Gender Information Value Date Recorded Sex Assigned at Not on file Legal Sex Female 3:01 AM FAST FOOD RESTAURANT MANAGER Gender Identity Not on file Sexual Orientation Not on file documented as of this encounter Plan of Treatment Not on file documented as of this encounter Visit Diagnoses Not on filedocumented in this encounter Care Teams Power House Engineer Relationship Specialty Start Date End Date Mau Terry MD [address] [place] [phone] PCP - General 02/28/06 07/12/14 documented as of this encounter
--- OUTSIDE RECORDS SUMMARY | 2024-10-30 19:56 | XMS_ITS | Encounter Summary ---
Author Organization [facility] Address [address] [place] [address] Care Team Providers Care Wheat Grower Name Role Phone Mau Terry MD Primary Care Provider [phone] Encounter Details Date Type Department Care Team (Latest Contact Info) Description 02/16/2004 Outpatient Historical [facility] Medicine- [address] [place] [phone] Sven Kimball PA NO ADDRESS ON FILE CLOSE SKULL FX NEC/MENING HEM (CMS/HCC) (Primary Dx); DIZZINESS AND GIDDINESS; HYPERTENSION NOS Social History Tobacco Use Types Packs/Day Years Used Date Smoking Tobacco: Never Assessed Comments Unknown Sex and Gender Information Value Date Recorded Sex Assigned at Not on file Legal Sex Female 3:01 AM MATERIAL REQUIREMENTS PLANNING MANAGER Gender Identity Not on file Sexual Orientation Not on file documented as of this encounter Plan of Treatment Not on file documented as of this encounter Visit Diagnoses Diagnosis Other closed skull fracture with subarachnoid, subdural, and extradural hemorrhage, unspecified state of consciousness- Primary Dizziness and giddiness Unspecified essential hypertension documented in this encounter Care Teams Wheat Grower Relationship Specialty Start Date End Date Mau Terry MD [address] [place] [phone] PCP - General 02/28/06 07/12/14 documented as of this encounter
--- OUTSIDE RECORDS SUMMARY | 2024-10-30 19:56 | XMS_ITS | Encounter Summary ---
Author Organization [facility] Address [address] [place] [address] Care Team Providers Care Cloth Bale Header Name Role Phone Mau Terry MD Primary Care Provider [phone] Encounter Details Date Type Department Care Team (Late st Contact Info) Description 06/20/2002 Outpatient Historical [facility] FY06 Jonh Fox Jr., MD [address] [place] [address] Social History Tobacco Use Types Packs/Day Years Used Date Smoking Tobacco: Never Assessed Comments Unknown Sex and Gender Information Value Date Recorded Sex Assigned at Not on file Legal Sex Female 3:01 AM DIE CAST TECHNICIAN Gender Identity Not on file Sexual Orientation Not on file documented as of this encounter Plan of Treatment Not on file documented as of this encounter Visit Diagnoses Not on filedocumented in this encounter Care Teams Cloth Bale Header Relationship Specialty Start Date End Date Mau Terry MD [address] [place] [phone] PCP - General 02/28/06 07/12/14 documented as of this encounter
--- OUTSIDE RECORDS SUMMARY | 2024-10-30 19:56 | XMS_ITS | Encounter Summary ---
Author Organization [facility] Address [address] [place] [address] Care Team Providers Care Waterside Worker Name Role Phone Mau Terry MD Primary Care Provider [phone] Encounter Details Date Type Department Care Team (Latest Contact Info) Description 11/18/2002 Outpatient Historical [facility] [address] [place] [place] [address] Jc Barth MD NO ADDRESS ON FILE Dysfunct eustachian tube (Primary Dx); CONDUCT HEARING LOSS NOS; HYPERSOMNI W SLEEP APNEA Social History Tobacco Use Types Packs/Day Years Used Date Smoking Tobacco: Never Assessed Comments Unknown Sex and Gender Information Value Date Recorded Sex Assigned at Not on file Legal Sex Female 3:01 AM QUALITY CONTROL TESTER Gender Identity Not on file Sexual Orientation Not on file documented as of this encounter Plan of Treatment Not on file documented as of this encounter Visit Diagnoses Diagnosis Dysfunct eustachian tube- Primary Dysfunction of Eustachian tube Unspecified conductive hearing loss Hypersomnia with sleep apnea, unspecified documented in this encounter Care Teams Waterside Worker Relationship Specialty Start Date End Date Mau Terry MD [address] [place] [phone] PCP - General 02/28/06 07/12/14 documented as of this encounter
--- OUTSIDE RECORDS SUMMARY | 2024-10-30 19:56 | XMS_ITS | Encounter Summary ---
Author Organization [facility] Address [address] [place] [address] Care Team Providers Care Salesperson China And Glassware Name Role Phone Mau Terry MD Primary Care Provider [phone] Encounter Details Date Type Department Care Team (Latest Contact Info) Description 09/21/2004 Outpatient Historical [facility] Medicine [place] [address] [facility] [address] [place] [phone] Sven Kimball PA NO ADDRESS ON FILE HEADACHE (Primary Dx) Social History Tobacco Use Types Packs/Day Years Used Date Smoking Tobacco: Never Assessed Comments Unknown Sex and Gender Information Value Date Recorded Sex Assigned at Not on file 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
--- OUTSIDE RECORDS SUMMARY | 2024-10-30 19:56 | XMS_ITS | Encounter Summary ---
Author Organization [facility] Address [address] [place] [address] Care Team Providers Care Mortgage Banker Name Role Phone Mau Terry MD Primary Care Provider [phone] Reason for Referral * Outpatient Services (Routine) - Closed Specialty Diagnoses / Procedures Referred By Contac t Referred To Contact Diagnoses Lump or mass in breast Procedures MAMMO DIGITAL DIAG BILAT Mau Terry MD [address] [place] [phone] Phone: tel: fax: Referral ID Status Reason Start Date Expiration Date Visits Re quested Visits Authorized [id number] Closed 11/30/2010 11/30/2011 1 1 Encounter Details Date Type Department Care Team (Late st Contact Info) Description 11/30/2010 Ancillary Orders [facility] [address] [phone] Mau Terry MD [address] [place] [phone] Lump or mass in breast Social History Tobacco Use Types Packs/Day Years Used Date Smoking Tobacco: Never Smokeless Tobacco: Never Alcohol Use Standard Drinks/Week Comments No 0 (1 standard drink = 0.6 oz pur e alcohol) Comments No Sex and Gender Information Value Date Recorded Sex Assigned at Not on file Legal Sex Female 3:01 AM UTILITY LINEMAN Gender Identity Not on file Sexual Orientation [...] by the Computer Aided Detection System (CAD), [employer], Version 8.3. RIGHT BREAST ULTRASOUND: Sonographic evaluation [...] and calcifications are stable with the study [id number]. On the right, the distribution of the tissue appears to be stable as well.The tissue is heterogeneously dense. Scattered areas of nodularity areidentified but no discrete or worrisome mass was noted. Furtherevaluation sonographically was carried out. This digital mammogram was also analyzed by the Computer Aided DetectionSystem (CAD), [employer] Image[employer]er, Version 8.3. RIGHT BREAST ULTRASOUND: Sonographic [...] breast documented in this encounter Care Teams Mortgage Banker Relationship Specialty Start Date End Date Mau Terry MD [address] [place] [phone] PCP - General 02/28/06 07/12/14 documented as of this encounter
--- OUTSIDE RECORDS SUMMARY | 2024-10-30 19:56 | XMS_ITS | Encounter Summary ---
Author Organization [facility] Address [address] [place] [address] Care Team Providers Care Supervisor Customer Records Division Name Role Phone Mau Terry MD Primary Care Provider [phone] Encounter Details Date Type Department Care Team (Latest Contact Info) Description 01/03/2004 Outpatient Historical [facility] [address] [place] [address] AMBULANCE, [facility] CONCUSSION W LOC UP TO 30 MIN (Primary Dx) Social History Tobacco Use Types Packs/Day Years Used Date Smoking Tobacco: Never Assessed Comments Unknown Sex and Gender Information Value Date Recorded Sex Assigned at Not on file Legal Sex Female 3:01 AM FOOD SANITARIAN Gender Identity Not on file Sexual Orientation Not on file documented as of this encounter Plan of Treatment Not on file documented as of this encounter Visit Diagnoses Diagnosis Concussion with loss of consciousness of 30 minutes or less- Primary documented in this encounter Care Teams Supervisor Customer Records Division Relationship Specialty Start Date End Date Mau Terry MD [address] [place] [phone] PCP - General 02/28/06 07/12/14 documented as of this encounter
--- OUTSIDE RECORDS SUMMARY | 2024-10-30 19:56 | XMS_ITS | Encounter Summary ---
Author Organization [facility] Address [address] [place] [address] Care Team Providers Care Back Sewer Name Role Phone Mau Terry MD Primary Care Provider [phone] Encounter Details Date Type Department Care Team (Latest Contact Info) Description 07/08/2002 Outpatient Historical [facility] [address] [facility] [address] [place] [address] Bryanna Bui MD NO ADDRESS ON FILE LUMP OR MASS IN BREAST (Primary Dx) Social History Tobacco Use Types Packs/Day Years Used Date Smoking Tobacco: Never Assessed Comments Unknown Sex and Gender Information Value Date Recorded Sex Assigned at Not on file Legal Sex Female 3:01 AM SKIN DIVING TEACHER Gender Identity Not on file Sexual Orientation Not on file documented as of this encounter Plan of Treatment Not on file documented as of this encounter Visit Diagnoses Diagnosis Lump or mass in breast- Primary documented in this encounter Care Teams Back Sewer Relationship Specialty Start Date End Date Mau Terry MD [address] [place] [phone] PCP - General 02/28/06 07/12/14 documented as of this encounter
--- OUTSIDE RECORDS SUMMARY | 2024-10-30 19:56 | XMS_ITS | Encounter Summary ---
Author Organization [facility] Address [address] [place] [address] Care Team Providers Care Pearl Diver Name Role Phone Mau Terry MD Primary Care Provider [phone] Encounter Details Date Type Department Care Team (Late st Contact Info) Description 02/19/2009 Ancillary Orders [facility] [address] [place] [address] Mau Terry MD [address] [place] [phone] Other Screening Mammogram Social History Tobacco Use Types Packs/Day Years Used Date Smoking Tobacco: Never Alcohol Use Standard Drinks/Week Comments No 0 (1 standard drink = 0.6 oz pur e alcohol) Comments No Sex and Gender Information Value Date Recorded Sex Assigned at Not on file Legal Sex Female 3:01 AM BOARDER HAND Gender Identity Not on file Sexual Orientation Not on file documented as of this encounter Plan of Treatment Not on file documented as of this encounter Results * MAMMO DIGITAL SCREEN BILAT (02/19/2009 2:54 PM CDT) Anatomical Region Laterality Modality Breast Bilateral Mammography Narrative 02/23/2009 5:17 PM BOARDER HAND Bilateral Mammogram Reason for Exam: Screening Comparison: [...] mammogram documented in this encounter Care Teams Pearl Diver Relationship Specialty Start Date End Date Mau Terry MD [address] [place] [phone] PCP - General 02/28/06 07/12/14 documented as of this encounter
--- OUTSIDE RECORDS SUMMARY | 2024-10-30 19:56 | XMS_ITS | Encounter Summary ---
Author Organization [facility] Address [address] [place] [address] Care Team Providers Care Lan/Wan Engineer Name Role Phone Mau Terry MD Primary Care Provider [phone] Encounter Details Date Type Department Care Team (Late st Contact Info) Description 01/19/2009 [facility]illary Orders [facility] [address] [place] [address] Mau Terry MD [address] [place] [phone] Other Screening Mammogram Social History Tobacco Use Types Packs/Day Years Used Date Smoking Tobacco: Never Alcohol Use Standard Drinks/Week Comments No 0 (1 standard drink = 0.6 oz pur e alcohol) Comments No Sex and Gender Information Value Date Recorded Sex Assigned at Not on file Legal Sex Female 3:01 AM RN IMAGING Gender Identity Not on file Sexual Orientation Not on file documented as of this encounter Plan of Treatment Not on file documented as of this encounter Visit Diagnoses Diagnosis Other screening mammogram documented in this encounter Care Teams Lan/Wan Engineer Relationship Specialty Start Date End Date Mau Terry MD [address] [place] [phone] PCP - General 02/28/06 07/12/14 documented as of this encounter
--- OUTSIDE RECORDS SUMMARY | 2024-10-30 19:56 | XMS_ITS | Encounter Summary ---
Author Organization [facility] Address [address] [place] [address] Care Team Providers Care Veterinary Assistant Technician Name Role Phone Mau Terry MD Primary Care Provider [phone] Encounter Details Date Type Department Care Team (Late st Contact Info) Description 01/03/2004 Inpatient Historical [facility] Alejo Burton MD [address] [address] CLOSE SKULL BASE FX/BRF COMA (CMS/HCC) (Primary Dx) Social History Tobacco Use Types Packs/Day Years Used Date Smoking Tobacco: Never Assessed Comments Unknown Sex and Gender Information Value Date Recorded Sex Assigned at Not on file Legal Sex Female 3:01 AM STATISTICAL CONSULTANT Gender Identity Not on file Sexual Orientation [...] consciousness documented in this encounter Care Teams Veterinary Assistant Technician Relationship Specialty Start Date End Date Mau Terry MD [address] [place] [phone] PCP - General 02/28/06 07/12/14 documented as of this encounter
--- OUTSIDE RECORDS SUMMARY | 2024-10-30 19:56 | XMS_ITS | Encounter Summary ---
Author Organization [facility] Address [address] [place] [address] Care Team Providers Care Factory Expert Name Role Phone Mau Terry MD Primary Care Provider [phone] Encounter Details Date Type Department Care Team (Latest Contact Info) Description 03/03/2004 Outpatient [facility] [address] [place] [address] [facility] [address] [place] [address] Jose Tatum MD [address] [place] [address] [place] [address] AFT CARE HEAL TRAUM FRAC OTHER BONE (Primary Dx) Social History Tobacco Use Types Packs/Day Years Used Date Smoking Tobacco: Never Assessed Comments Unknown Sex and Gender Information Value Date Recorded Sex Assigned at Not on file Legal Sex Female 3:01 AM DRAFTER DIRECTIONAL SURVEY Gender Identity Not on file Sexual Orientation Not on file documented as of this encounter Plan of Treatment Not on file documented as of this encounter Visit Diagnoses Diagnosis Aftercare for healing traumatic fracture of other bone- Primary documented in this encounter Care Teams Factory Expert Relationship Specialty Start Date End Date Mau Terry MD [address] [place] [phone] PCP - General 02/28/06 07/12/14 documented as of this encounter
--- OUTSIDE RECORDS SUMMARY | 2024-10-30 19:56 | XMS_ITS | Encounter Summary ---
Author Organization [facility] Address [address] [place] [address] Care Team Providers Care Transcribing Machine Operator Name Role Phone Mau Terry MD Primary Care Provider Encounter Details Date Type Department Care Team (Late st Contact Info) Description 05/14/2002 Outpatient Historical [facility] Ear, Nose and Throat [address] [place] [address] [place] [address] Social History Tobacco Use Types Packs/Day Years Used Date Smoking Tobacco: Never Assessed Comments Unknown Sex and Gender Information Value Date Recorded Sex Assigned at Not on file Legal Sex Female 3:01 AM GAS CHARGER Gender Identity Not on file Sexual Orientation Not on file documented as of this encounter Plan of Treatment Not on file documented as of this encounter Visit Diagnoses Not on filedocumented in this encounter Care Teams Transcribing Machine Operator Relationship Specialty Start Date End Date Mau Terry MD [address] [place] [phone] PCP - General 02/28/06 07/12/14 documented as of this encounter
--- OUTSIDE RECORDS SUMMARY | 2024-10-30 19:56 | XMS_ITS | Encounter Summary ---
Author Organization [facility] Address [address] [place] [address] Care Team Providers Care Grinder Set Up Operator Centerless Name Role Phone Mau Terry MD Primary Care Provider [phone] Encounter Details Date Type Department Care Team (Late st Contact Info) Description 04/26/2007 Outpatient [facility] [address] [place] [address] Mau Terry MD [address] [place] [phone] Social History Tobacco Use Types Packs/Day Years Used Date Smoking Tobacco: Never Assessed Comments Unknown Sex and Gender Information Value Date Recorded Sex Assigned at Not on file Legal Sex Female 3:01 AM GEEK SQUAD AUTOTECH Gender Identity Not on file Sexual Orientation Not on file documented as of this encounter Plan of Treatment Not on file documented as of this encounter Visit Diagnoses Not on filedocumented in this encounter Care Teams Grinder Set Up Operator Centerless Relationship Specialty Start Date End Date Mau Terry MD [address] [place] [phone] PCP - General 02/28/06 07/12/14 documented as of this encounter
--- OUTSIDE RECORDS SUMMARY | 2024-10-30 19:56 | XMS_ITS | Encounter Summary ---
Author Organization [facility] Address [address] [place] [address] Care Team Providers Care Supervisor Cigar Making Hand Name Role Phone Mau Terry MD Primary Care Provider [phone] Encounter Details Date Type Department Care Team (Late st Contact Info) Description 08/27/2002 Outpatient [place] [address] [place] [address] Social History Tobacco Use Types Packs/Day Years Used Date Smoking Tobacco: Never Assessed Comments Unknown Sex and Gender Information Value Date Recorded Sex Assigned at Not on file Legal Sex Female 3:01 AM BIRD TRAPPER Gender Identity Not on file Sexual Orientation Not on file documented as of this encounter Plan of Treatment Not on file documented as of this encounter Visit Diagnoses Not on filedocumented in this encounter Care Teams Supervisor Cigar Making Hand Relationship Specialty Start Date End Date Mau Terry MD [facility] [address] [place] [phone] PCP - General 02/28/06 07/12/14 documented as of this encounter
--- OUTSIDE RECORDS SUMMARY | 2024-10-30 19:56 | XMS_ITS | Encounter Summary ---
Author Organization [facility] Address [address] [place] [address] Care Team Providers Care Automation Architect Name Role Phone Mau Terry MD Primary Care Provider [phone] Encounter Details Date Type Department Care Team (Latest Contact Info) Description 05/27/2003 Outpatient Historical [facility] [place] [address] [facility] [address] [place] [phone] Bienvenido Louise, NO ADDRESS ON FILE ALLERGIC RHINITIS NOS (Primary Dx); HYPERTENSION NOS; JOINT PAIN-L/LEG Social History Tobacco Use Types Packs/Day Years Used Date Smoking Tobacco: Never Assessed Comments Unknown Sex and Gender Information Value Date Recorded Sex Assigned at Not on file Legal Sex Female 3:01 AM GILL BOX OPERATOR Gender Identity Not on file Sexual Orientation Not on file documented as of this encounter Plan of Treatment Not on file documented as of this encounter Visit Diagnoses Diagnosis Allergic rhinitis, cause unspecified- Primary Unspecified essential hypertension Pain in joint, lower leg documented in this encounter Care Teams Automation Architect Relationship Specialty Start Date End Date Mau Terry MD [address] [place] [phone] PCP - General 02/28/06 07/12/14 documented as of this encounter
--- OUTSIDE RECORDS SUMMARY | 2024-10-30 19:56 | XMS_ITS | Encounter Summary ---
Author Organization [facility] Address [address] [place] [address] Care Team Providers Care City Councilman Name Role Phone Mau Terry MD Primary Care Provider [phone] Encounter Details Date Type Department Care Team (Latest Contact Info) Description 03/03/2004 Outpatient Historical [facility] [address] 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
--- OUTSIDE RECORDS SUMMARY | 2024-10-30 19:56 | XMS_ITS | Encounter Summary ---
Author Organization [facility] Address [address] [place] [address] Care Team Providers Care Hull Drafter Name Role Phone Mau Terry MD Primary Care Provider [phone] Encounter Details Date Type Department Care Team (Latest Contact Info) Description 08/22/2002 Outpatient Historical [facility] Ear, Nose and Throat [address] [place] [address] [place] [address] [place] [address] Jc Barth MD NO ADDRESS ON FILE CONDUCT HEARING LOSS NOS (Primary Dx); ALLERGIC RHINITIS NOS Social History Tobacco Use Types Packs/Day Years Used Date Smoking Tobacco: Never Assessed Comments Unknown Sex and Gender Information Value Date Recorded Sex Assigned at Not on file Legal Sex Female 3:01 AM NEWSPAPER OR PERIODICAL EDITOR Gender Identity Not on file Sexual Orientation Not on file documented as of this encounter Plan of Treatment Not on file documented as of this encounter Visit Diagnoses Diagnosis Unspecified conductive hearing loss- Primary Allergic rhinitis, cause unspecified documented in this encounter Care Teams Hull Drafter Relationship Specialty Start Date End Date Mau Terry MD [address] [place] [phone] PCP - General 02/28/06 07/12/14 documented as of this encounter
--- OUTSIDE RECORDS SUMMARY | 2024-10-30 19:56 | XMS_ITS | Encounter Summary ---
Author Organization [facility] Address [address] [place] [address] Care Team Providers Care Grand Scribe Name Role Phone Mau Terry MD Primary Care Provider [phone] Encounter Details Date Type Department Care Team (Latest Contact Info) Description 02/19/2004 Outpatient Historical [facility] Internal Medicine- [place] [address] [facility] [address] [place] [address] Russell Madrid MD [address] [place] [place] [phone] HYPERTENSION NOS (Primary Dx) Social History Tobacco Use Types Packs/Day Years Used Date Smoking Tobacco: Never Assessed Comments Unknown Sex and Gender Information Value Date Recorded Sex Assigned at Not on file Legal Sex Female 3:01 AM GRINDER MILL OPERATOR Gender Identity Not on file Sexual Orientation Not on file documented as of this encounter Plan of Treatment Not on file documented as of this encounter Visit Diagnoses Diagnosis Unspecified essential hypertension- Primary documented in this encounter Care Teams Grand Scribe Relationship Specialty Start Date End Date Mau Terry MD [address] [place] [phone] PCP - General 02/28/06 07/12/14 documented as of this encounter
--- OUTSIDE RECORDS SUMMARY | 2024-10-30 19:56 | XMS_ITS | Encounter Summary ---
Author Organization [facility] Address [address] [place] [address] Care Team Providers Care Mobile Lounge Driver Or Operator Name Role Phone Mau Terry MD Primary Care Provider [phone] Encounter Details Date Type Department Care Team (Latest Contact Info) Description 11/30/2004 Outpatient Historical [facility] Medicine Branch [address] [facility] [address] [place] [phone] Sven Kimball PA NO ADDRESS ON FILE OTHER MALAISE AND FATIGUE (Primary Dx); HYPERTENSION NOS Social History Tobacco Use Types Packs/Day Years Used Date Smoking Tobacco: Never Assessed Comments Unknown Sex and Gender Information Value Date Recorded Sex Assigned at Not on file Legal Sex Female 3:01 AM SQL REPORT DEVELOPER Gender Identity Not on file Sexual Orientation Not on file documented as of this encounter Plan of Treatment Not on file documented as of this encounter Visit Diagnoses Diagnosis Other malaise and fatigue- Primary Unspecified essential hypertension documented in this encounter Care Teams Mobile Lounge Driver Or Operator Relationship Specialty Start Date End Date Mau Terry MD [address] [place] [phone] PCP - General 02/28/06 07/12/14 documented as of this encounter
--- OUTSIDE RECORDS SUMMARY | 2024-10-30 19:56 | XMS_ITS | Encounter Summary ---
Author Organization [facility] Address [address] [place] [address] Care Team Providers Care Pharmacovigilance Safety Expert Name Role Phone Mau Terry MD Primary Care Provider [phone] Encounter Details Date Type Department Care Team (Late st Contact Info) Description 08/27/2002 Outpatient Historical [facility] [address] [place] [address] [place] [address] Jonh Fox Jr., MD [address] [place] [phone] RESPIRATORY ABNORM NEC (Primary Dx) Social History Tobacco Use Types Packs/Day Years Used Date Smoking Tobacco: Never Assessed Comments Unknown Sex and Gender Information Value Date Recorded Sex Assigned at Not on file Legal Sex Female 3:01 AM ACTIVATED SLUDGE ATTENDANT Gender Identity Not on file Sexual Orientation Not on file documented as of this encounter Plan of Treatment Not on file documented as of this encounter Visit Diagnoses Diagnosis Other dyspnea and respiratory abnormality- Primary documented in this encounter Care Teams Pharmacovigilance Safety Expert Relationship Specialty Start Date End Date Mau Terry MD [address] [place] [phone] PCP - General 02/28/06 07/12/14 documented as of this encounter
--- OUTSIDE RECORDS SUMMARY | 2024-10-30 19:57 | XMS_ITS | Encounter Summary ---
Author Organization [facility] Address [address] [place] [address] Care Team Providers Care Websphere Portal Architect Name Role Phone Mau Terry MD Primary Care Provider [phone] Encounter Details Date Type Department Care Team (Latest Contact Info) Description 03/16/2006 Outpatient Historical [facility] [address] [facility] [address] [place] [address] Jamey Fraga MD NO ADDRESS ON FILE Other Screening Mammogram (Primary Dx) Social History Tobacco Use Types Packs/Day Years Used Date Smoking Tobacco: Never Assessed Comments Unknown Sex and Gender Information Value Date Recorded Sex Assigned at Not on file Legal Sex Female 3:01 AM DOPE SPRAYER Gender Identity Not on file Sexual Orientation Not on file documented as of this encounter Plan of Treatment Not on file documented as of this encounter Visit Diagnoses Diagnosis Other screening mammogram- Primary documented in this encounter Care Teams Websphere Portal Architect Relationship Specialty Start Date End Date Mau Terry MD [address] [place] [phone] PCP - General 02/28/06 07/12/14 documented as of this encounter
--- OUTSIDE RECORDS SUMMARY | 2024-10-30 19:57 | XMS_ITS | Encounter Summary ---
Author Organization [facility] Address [address] [place] [address] Care Team Providers Care Manager Vehicle Name Role Phone Mau Terry MD Primary Care Provider [phone] Encounter Details Date Type Department Care Team (Latest Contact Info) Description 03/30/2004 Outpatient Historical [facility] Ear, Nose and Throat [address] [place] [address] [place] [address] [place] [address] Anselmo Lopez MD [address] [address] PERIPHERAL VERTIGO NOS (Primary Dx); BENIGN PARXYSMAL VERTIGO; CONDUCT HEARING LOSS NOS; IMPACTED CERUMEN Social History Tobacco Use Types Packs/Day Years Used Date Smoking Tobacco: Never Assessed Comments Unknown Sex and Gender Information Value Date Recorded Sex Assigned at Not on file Legal Sex Female 3:01 AM OUTSIDE SALES ACCOUNT REPRESENTATIVE Gender Identity Not on file Sexual Orientation Not on file documented as of this encounter Plan of Treatment Not on file documented as of this encounter Visit Diagnoses Diagnosis Peripheral vertigo, unspecified- Primary Benign paroxysmal positional vertigo Unspecified conductive hearing loss Impacted cerumen documented in this encounter Care Teams Manager Vehicle Relationship Specialty Start Date End Date Mau Terry MD [address] [place] [phone] PCP - General 02/28/06 07/12/14 documented as of this encounter
--- OUTSIDE RECORDS SUMMARY | 2024-10-30 19:57 | XMS_ITS | Encounter Summary ---
Author Organization [facility] Address [address] [place] [address] Care Team Providers Care Brake Specialist Name Role Phone Mau Terry MD Primary Care Provider [phone] Encounter Details Date Type Department Care Team (Latest Contact Info) Description 05/17/1998 Outpatient Historical [facility] Garret Nj MD NO ADDRESS ON FILE Gynecologic examination (Primary Dx) Social History Tobacco Use Types Packs/Day Years Used Date Smoking Tobacco: Never Assessed Comments Unknown Sex and Gender Information Value Date Recorded Sex Assigned at Not on file Legal Sex Female 3:01 AM CIRCUS ARTIST Gender Identity Not on file Sexual Orientation Not on file documented as of this encounter Plan of Treatment Not on file documented as of this encounter Visit Diagnoses Diagnosis Gynecologic examination- Primary Gynecological examination documented in this encounter Care Teams Brake Specialist Relationship Specialty Start Date End Date Mau Terry MD [address] [place] [phone] PCP - General 02/28/06 07/12/14 documented as of this encounter
--- OUTSIDE RECORDS SUMMARY | 2024-10-30 19:57 | XMS_ITS | Encounter Summary ---
Author Organization [facility] Address [address] [place] [address] Care Team Providers Care Manager Cash Name Role Phone Mau Terry MD Primary Care Provider [phone] Encounter Details Date Type Department Care Team (Latest Contact Info) Description 12/13/2000 Outpatient [facility] Facial Plastic Surgery[address] [place] [address] Tano Meneses MD NO ADDRESS ON FILE Follow-up examination, following unspecified surgery (Primary Dx) Social History Tobacco Use Types Packs/Day Years Used Date Smoking Tobacco: Never Assessed Comments Unknown Sex and Gender Information Value Date Recorded Sex Assigned at Not on file Legal Sex Female 3:01 AM CIGAR HEAD PIERCER Gender Identity Not on file Sexual Orientation Not on file documented as of this encounter Plan of Treatment Not on file documented as of this encounter Visit Diagnoses Diagnosis Follow-up examination, following unspecified surgery- Primary documented in this encounter Care Teams Manager Cash Relationship Specialty Start Date End Date Mau Terry MD [address] [place] [phone] PCP - General 02/28/06 07/12/14 documented as of this encounter
--- OUTSIDE RECORDS SUMMARY | 2024-10-30 19:57 | XMS_ITS | Encounter Summary ---
Author Organization [facility] Address [address] [place] [address] Care Team Providers Care Editor City Name Role Phone Mau Terry MD Primary Care Provider [phone] Encounter Details Date Type Department Care Team (Latest Contact Info) Description 01/13/2000 Outpatient Historical [facility] Jonh Fox Jr., MD [address] [place] [address] Attention to dressings and sutures (Primary Dx) Social History Tobacco Use Types Packs/Day Years Used Date Smoking Tobacco: Never Assessed Comments Unknown Sex and Gender Information Value Date Recorded Sex Assigned at Not on file Legal Sex Female 3:01 AM ICE CREAM FREEZER ASSISTANT Gender Identity Not on file Sexual Orientation Not on file documented as of this encounter Plan of Treatment Not on file documented as of this encounter Visit Diagnoses Diagnosis Attention to dressings and sutures- Primary documented in this encounter Care Teams Editor City Relationship Specialty Start Date End Date Mau Terry MD [address] [place] [phone] PCP - General 02/28/06 07/12/14 documented as of this encounter
--- OUTSIDE RECORDS SUMMARY | 2024-10-30 19:57 | XMS_ITS | Encounter Summary ---
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); Unspecified sleep apnea Social History Tobacco Use Types Packs/Day Years Used Date Smoking Tobacco: Never Assessed Comments Unknown Sex and Gender Information Value Date Recorded Sex Assigned at Not on file Legal Sex Female 3:01 AM EXPORT SALES ASSISTANT Gender Identity Not on file Sexual Orientation Not on file documented as of this encounter Plan of Treatment Not on file documented as of this encounter Visit Diagnoses Diagnosis Other and unspecified 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
--- OUTSIDE RECORDS SUMMARY | 2024-10-30 19:57 | XMS_ITS | Encounter Summary ---
Author Organization [facility] Address [address] [place] [address] Care Team Providers Care Water Supply Technician Name Role Phone Mau Terry MD Primary Care Provider [phone] Encounter Details Date Type Department Care Team (Latest Contact Info) Description 12/14/2004 Outpatient Historical [facility] Medicine [place] [address] [facility] [address] [place] [phone] Sven Kimball PA NO ADDRESS ON FILE MALAISE AND FATIGUE NEC (Primary Dx); HYPERTENSION NOS Social History Tobacco Use Types Packs/Day Years Used Date Smoking Tobacco: Never Assessed Comments Unknown Sex and Gender Information Value Date Recorded Sex Assigned at Not on file Legal Sex Female 3:01 AM CHILD DEVELOPMENT SPECIALIST Gender Identity Not on file Sexual Orientation Not on file documented as of this encounter Plan of Treatment Not on file documented as of this encounter Visit Diagnoses Diagnosis Other malaise and fatigue- Primary Unspecified essential hypertension documented in this encounter Care Teams Water Supply Technician Relationship Specialty Start Date End Date Mau Terry MD [address] [place] [phone] PCP - General 02/28/06 07/12/14 documented as of this encounter
--- OUTSIDE RECORDS SUMMARY | 2024-10-30 19:57 | XMS_ITS | Encounter Summary ---
Author Organization [facility] Address [address] [place] [address] Care Team Providers Care Hand Candle Molder Name Role Phone Mau Terry MD Primary Care Provider [phone] Encounter Details Date Type Department Care Team (Latest Contact Info) Description 02/17/2000 Outpatient Historical [facility] Jonh Fox Jr., MD [address] [place] [phone] Unspecified essential hypertension (Primary Dx) Social History Tobacco Use Types Packs/Day Years Used Date Smoking Tobacco: Never Assessed Comments Unknown Sex and Gender Information Value Date Recorded Sex Assigned at Not on file Legal Sex Female 3:01 AM IMPROVEMENT LEAD Gender Identity Not on file Sexual Orientation Not on file documented as of this encounter Plan of Treatment Not on file documented as of this encounter Visit Diagnoses Diagnosis Unspecified essential hypertension- Primary documented in this encounter Care Teams Hand Candle Molder Relationship Specialty Start Date End Date Mau Terry MD [address] [place] [phone] PCP - General 02/28/06 07/12/14 documented as of this encounter
--- OUTSIDE RECORDS SUMMARY | 2024-10-30 19:57 | XMS_ITS | Encounter Summary ---
Author Organization [facility] Address [address] [place] [address] Care Team Providers Care Loop Drier Operator Name Role Phone Mau Terry MD Primary Care Provider Encounter Details Date Type Department Care Team (Latest Contact Info) Description 02/16/1998 Outpatient Historical [facility] [address] [place] [phone] X358 Social History Tobacco Use Types Packs/Day Years Used Date Smoking Tobacco: Never Assessed Comments Unknown Sex and Gender Information Value Date Recorded Sex Assigned at Not on file Legal Sex Female 3:01 AM TUBE BENDER HAND Gender Identity Not on file Sexual Orientation Not on file documented as of this encounter Plan of Treatment Not on file documented as of this encounter Visit Diagnoses Not on filedocumented in this encounter Care Teams Loop Drier Operator Relationship Specialty Start Date End Date Mau Terry MD [address] [place] [phone] PCP - General 02/28/06 07/12/14 documented as of this encounter
--- OUTSIDE RECORDS SUMMARY | 2024-10-30 19:57 | XMS_ITS | Encounter Summary ---
Author Organization [facility] Address [address] [place] [address] Care Team Providers Care Facing Cutting Machine Operator Name Role Phone Mau Terry MD Primary Care Provider [phone] Encounter Details Date Type Department Care Team (Latest Contact Info) Description 04/08/2004 Outpatient Historical [facility] Internal [facility]- [place] [address] [facility] [address] [place] [address] Russell Madrid MD [address] [place] [phone] HYPERTENSION NOS (Primary Dx); OTHER MALAISE AND FATIGUE Social History Tobacco Use Types Packs/Day Years Used Date Smoking Tobacco: Never Assessed Comments Unknown Sex and Gender Information Value Date Recorded Sex Assigned at Not on file Legal Sex Female 3:01 AM GREENHOUSE ASSISTANT Gender Identity Not on file Sexual Orientation Not on file documented as of this encounter Plan of Treatment Not on file documented as of this encounter Visit Diagnoses Diagnosis Unspecified essential hypertension- Primary Other malaise and fatigue documented in this encounter Care Teams Facing Cutting Machine Operator Relationship Specialty Start Date End Date Mau Terry MD [facility] [address] [place] [phone] PCP - General 02/28/06 07/12/14 documented as of this encounter
--- OUTSIDE RECORDS SUMMARY | 2024-10-30 19:57 | XMS_ITS | Encounter Summary ---
Author Organization [facility] Address [address] [place] [address] Care Team Providers Care Veterans' Counselor Name Role Phone Mau Terry MD Primary Care Provider [phone] Encounter Details Date Type Department Care Team (Latest Contact Info) Description 09/06/2000 Outpatient [facility] Facial Plastic Surgery[address] [place] [address] Tano Meneses MD NO ADDRESS ON FILE Follow-up examination, following unspecified surgery (Primary Dx) Social History Tobacco Use Types Packs/Day Years Used Date Smoking Tobacco: Never Assessed Comments Unknown Sex and Gender Information Value Date Recorded Sex Assigned at Not on file Legal Sex Female 3:01 AM PARAMEDICAL AIDE Gender Identity Not on file Sexual Orientation Not on file documented as of this encounter Plan of Treatment Not on file documented as of this encounter Visit Diagnoses Diagnosis Follow-up examination, following unspecified surgery- Primary documented in this encounter Care Teams Veterans' Counselor Relationship Specialty Start Date End Date Mau Terry MD [address] [place] [phone] PCP - General 02/28/06 07/12/14 documented as of this encounter
--- OUTSIDE RECORDS SUMMARY | 2024-10-30 19:57 | XMS_ITS | Encounter Summary ---
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) Social History Tobacco Use Types Packs/Day Years Used Date Smoking Tobacco: Never Assessed Comments Unknown Sex and Gender Information Value Date Recorded Sex Assigned at Not on file Legal Sex Female 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
--- OUTSIDE RECORDS SUMMARY | 2024-10-30 19:57 | XMS_ITS | Encounter Summary ---
Author Organization [facility] Address [address] [place] [address] Care Team Providers Care Hearing Aid Specialist Name Role Phone Mau Terry MD Primary Care Provider [phone] Encounter Details Date Type Department Care Team (Latest Contact Info) Description 03/02/2000 Outpatient Historical [facility] Jonh Fox Jr., MD [address] [place] [phone] Unspecified essential hypertension (Primary Dx); Obesity, unspecified Social History Tobacco Use Types Packs/Day Years Used Date Smoking Tobacco: Never Assessed Comments Unknown Sex and Gender Information Value Date Recorded Sex Assigned at Not on file Legal Sex Female 3:01 AM CRACKER SPRAYER Gender Identity Not on file Sexual Orientation Not on file documented as of this encounter Plan of Treatment Not on file documented as of this encounter Visit Diagnoses Diagnosis Unspecified essential hypertension- Primary Obesity, unspecified documented in this encounter Care Teams Hearing Aid Specialist Relationship Specialty Start Date End Date Mau Terry MD [address] [place] [phone] PCP - General 02/28/06 07/12/14 documented as of this encounter
--- OUTSIDE RECORDS SUMMARY | 2024-10-30 19:57 | XMS_ITS | Encounter Summary ---
Author Organization [facility] Address [address] [place] [address] Care Team Providers Care Instrument Processing Tech Name Role Phone Mau Terry MD Primary Care Provider [phone] Encounter Details Date Type Department Care Team (Latest Contact Info) Description 09/13/2004 Outpatient Historical [facility] Medicine- [address] [place] [phone] Sven Kimball, [place] NO ADDRESS ON FILE OTHER UNSPEC SLEEP APNEA (Primary Dx); UNCERTAIN BEHAV NEOPL SKIN Social History Tobacco Use Types Packs/Day Years Used Date Smoking Tobacco: Never Assessed Comments Unknown Sex and Gender Information Value Date Recorded Sex Assigned at Not on file Legal Sex Female 3:01 AM SPACE TECHNOLOGIST Gender Identity Not on file Sexual Orientation Not on file documented as of this encounter Plan of Treatment Not on file documented as of this encounter Visit Diagnoses Diagnosis Unspecified sleep apnea- Primary Neoplasm of uncertain behavior of skin documented in this encounter Care Teams Instrument Processing Tech Relationship Specialty Start Date End Date Mau Terry MD [address] [place] [phone] PCP - General 02/28/06 07/12/14 documented as of this encounter
--- OUTSIDE RECORDS SUMMARY | 2024-10-30 19:57 | XMS_ITS | Encounter Summary ---
Author Organization [facility] Address [address] [place] [address] Care Team Providers Care Assembler Surgical Garment Name Role Phone Mau Terry MD Primary Care Provider [phone] Encounter Details Date Type Department Care Team (Latest Contact Info) Description 05/04/2004 Outpatient Historical [facility] Medicine [place] [address] [facility] [address] [place] [address] Sven Kimball, [place] NO ADDRESS ON FILE HYPERTENSION NOS (Primary Dx); SKIN DISORDER NOS; HEAD INJURY UNSPECIFIED Social History Tobacco Use Types Packs/Day Years Used Date Smoking Tobacco: Never Assessed Comments Unknown Sex and Gender Information Value Date Recorded Sex Assigned at Not on file Legal Sex Female 3:01 AM EQUIPMENT ASSOCIATE Gender Identity Not on file Sexual Orientation Not on file documented as of this encounter Plan of Treatment Not on file documented as of this encounter Visit Diagnoses Diagnosis Unspecified essential hypertension- Primary Unspecified disorder of skin and subcutaneous tissue Head injury, unspecified documented in this encounter Care Teams Assembler Surgical Garment Relationship Specialty Start Date End Date Mau Terry MD [address] [place] [phone] PCP - General 02/28/06 07/12/14 documented as of this encounter
--- OUTSIDE RECORDS SUMMARY | 2024-10-30 19:57 | XMS_ITS | Encounter Summary ---
Author Organization [facility] Address [address] [place] [address] Care Team Providers Care Crutching Contractor Name Role Phone Mau Terry MD Primary Care Provider [phone] Encounter Details Date Type Department Care Team (Latest Contact Info) Description 03/06/2006 Outpatient Historical [facility] Imaging Services [address] [place] [address] Mau Terry MD [address] [place] [phone] Dysphagia (Primary Dx) Social History Tobacco Use Types Packs/Day Years Used Date Smoking Tobacco: Never Assessed Comments Unknown Sex and Gender Information Value Date Recorded Sex Assigned at Not on file Legal Sex Female 3:01 AM UPHOLSTERY CUTTER Gender Identity Not on file Sexual Orientation Not on file documented as of this encounter Plan of Treatment Not on file documented as of this encounter Procedures Procedure Name Priority Date/Time Associated Diagnosis Comments XR ESOPHAGUS BARIUM SWALLOW Routine 03/06/2006 12:01 AM UPHOLSTERY CUTTER documented in this encounter Results * XR ESOPHAGUS BARIUM SWALLOW (03/06/2006 12:01 AM UPHOLSTERY CUTTER) Anatomical Region Laterality Modality Abdomen Other 03/06/2006 12:0 1 AM UPHOLSTERY CUTTER Narrative 03/06/2006 12:01 AM UPHOLSTERY CUTTER BARIUM SWALLOW 03/06/2006 AT 1036: COMPARISONS: None. [...] Primary documented in this encounter Care Teams Crutching Contractor Relationship Specialty Start Date End Date Mau Terry MD [address] [place] [phone] PCP - General 02/28/06 07/12/14 documented as of this encounter
--- OUTSIDE RECORDS SUMMARY | 2024-10-30 19:57 | XMS_ITS | Encounter Summary ---
Author Organization [facility] Address [address] [place] [address] Care Team Providers Care Starchmaker Name Role Phone Mau Terry MD Primary Care Provider [phone] Encounter Details Date Type Department Care Team (Late st Contact Info) Description 02/24/1998 Outpatient Historical [facility] Cardiology- [place] [address] [place] [address] Obed Mejia MD [address] [facility] [address] [place] [address] Painful respiration (Primary Dx); Palpitations Social History Tobacco Use Types Packs/Day Years Used Date Smoking Tobacco: Never Assessed Comments Unknown Sex and Gender Information Value Date Recorded Sex Assigned at Not on file Legal Sex Female 3:01 AM UNIVERSITY CONTROLLER Gender Identity Not on file Sexual Orientation Not on file documented as of this encounter Plan of Treatment Not on file documented as of this encounter Visit Diagnoses Diagnosis Painful respiration- Primary Palpitations documented in this encounter Care Teams Starchmaker Relationship Specialty Start Date End Date Mau Terry MD [address] [place] [phone] PCP - General 02/28/06 07/12/14 documented as of this encounter
--- OUTSIDE RECORDS SUMMARY | 2024-10-30 19:57 | XMS_ITS | Encounter Summary ---
Author Organization [facility] Address [address] [place] [address] Care Team Providers Care Final Touch Up Painter Name Role Phone Mau Terry MD Primary Care Provider [phone] Encounter Details Date Type Department Care Team (Latest Contact Info) Description 12/09/1999 Outpatient Historical [facility] Jonh Fox Jr., MD [address] [place] [address] General symptoms NEC (Primary Dx); Hypoactive sexual desire; Pure hypercholesterolem Social History Tobacco Use Types Packs/Day Years Used Date Smoking Tobacco: Never Assessed Comments Unknown Sex and Gender Information Value Date Recorded Sex Assigned at Not on file Legal Sex Female 3:01 AM SHIPPING AGENT Gender Identity Not on file Sexual Orientation Not on file documented as of this encounter Plan of Treatment Not on file documented as of this encounter Visit Diagnoses Diagnosis General symptoms NEC- Primary Other general symptoms Hypoactive sexual desire Hypoactive sexual desire disorder Pure hypercholesterolem Pure hypercholesterolemia documented in this encounter Care Teams Final Touch Up Painter Relationship Specialty Start Date End Date Mau Terry MD [address] [place] [phone] PCP - General 02/28/06 07/12/14 documented as of this encounter
--- OUTSIDE RECORDS SUMMARY | 2024-10-30 19:57 | XMS_ITS | Encounter Summary ---
Author Organization [facility] Address [address] [place] [address] Care Team Providers Care Machine Icer Name Role Phone Mau Terry MD Primary Care Provider [phone] Encounter Details Date Type Department Care Team (Latest Contact Info) Description 05/10/2006 Outpatient [facility] Gastroenterology[address] [place] [address] Frederick Choudhury MD [address] [place] [phone] Reflux Esophagitis (Primary Dx); Dysphagia Social History Tobacco Use Types Packs/Day Years Used Date Smoking Tobacco: Never Assessed Comments Unknown Sex and Gender Information Value Date Recorded Sex Assigned at Not on file Legal Sex Female 3:01 AM TRAM INSPECTOR Gender Identity Not on file Sexual Orientation Not on file documented as of this encounter Plan of Treatment Not on file documented as of this encounter Visit Diagnoses Diagnosis Reflux esophagitis- Primary Dysphagia documented in this encounter Care Teams Machine Icer Relationship Specialty Start Date End Date Mau Terry MD [address] [place] [phone] PCP - General 02/28/06 07/12/14 documented as of this encounter
--- OUTSIDE RECORDS SUMMARY | 2024-10-30 19:57 | XMS_ITS | Encounter Summary ---
Author Organization [facility] Address [address] [place] [address] Care Team Providers Care Pipe [place] Name Role Phone Mau Terry MD Primary Care Provider [phone] Encounter Details Date Type Department Care Team (Latest Contact Info) Description 01/02/2002 Outpatient Historical [facility] Ear, Nose and Throat [address] [place] [address] [place] [address] Tenzin Vaughn [address] [place] [address] CHRONIC MASTOIDITIS (Primary Dx); DEGEN/VASCUL DIS EAR NOS Social History Tobacco Use Types Packs/Day Years Used Date Smoking Tobacco: Never Assessed Comments Unknown Sex and Gender Information Value Date Recorded Sex Assigned at Not on file Legal Sex Female 3:01 AM EVALUATION ASSISTANT Gender Identity Not on file Sexual Orientation Not on file documented as of this encounter Plan of Treatment Not on file documented as of this encounter Visit Diagnoses Diagnosis Chronic mastoiditis- Primary Degenerative and vascular disorders of ear, unspecified documented in this encounter Care Teams Pipe [place] Relationship Specialty Start Date End Date Mau Terry MD [address] [place] [phone] PCP - General 02/28/06 07/12/14 documented as of this encounter
--- OUTSIDE RECORDS SUMMARY | 2024-10-30 19:57 | XMS_ITS | Encounter Summary ---
Author Organization [facility] Address [address] [place] [address] Care Team Providers Care Insurance Premium Auditor Name Role Phone Mau Terry MD Primary Care Provider [phone] Encounter Details Date Type Department Care Team (Latest Contact Info) Description 06/08/2004 Outpatient Historical [facility] Medicine [place] [address] [facility] [address] [place] [phone] Sven Kimball, [place] NO ADDRESS ON FILE BONE/SKIN NEOPLASM NOS (Primary Dx); HEAD INJURY UNSPECIFIED Social History Tobacco Use Types Packs/Day Years Used Date Smoking Tobacco: Never Assessed Comments Unknown Sex and Gender Information Value Date Recorded Sex Assigned at Not on file Legal Sex Female 3:01 AM BORING MILL SET UP OPERATOR Gender Identity Not on file Sexual Orientation Not on file documented as of this encounter Plan of Treatment Not on file documented as of this encounter Visit Diagnoses Diagnosis Neoplasm of unspecified nature of bone, soft tissue, and skin- Primary Head injury, unspecified documented in this encounter Care Teams Insurance Premium Auditor Relationship Specialty Start Date End Date Mau Terry MD [address] [place] [phone] PCP - General 02/28/06 07/12/14 documented as of this encounter
--- OUTSIDE RECORDS SUMMARY | 2024-10-30 19:57 | XMS_ITS | Encounter Summary ---
Author Organization [facility] [employer] [facility] Address [address] [place] [address] Care Team Providers Care Horse Riding Coach Or Instructor Name Role Phone Mau Terry MD Primary Care Provider [phone] Encounter Details Date Type Department Care Team (Latest Contact Info) Description 06/24/2001 Outpatient Historical [facility] Brent Valladares MD [address] [place] [address] ACUTE URI NOS (Primary Dx) Social History Tobacco Use Types Packs/Day Years Used Date Smoking Tobacco: Never Assessed Comments Unknown Sex and Gender Information Value Date Recorded Sex Assigned at Not on file Legal Sex Female 3:01 AM TARIFF SUPERVISOR Gender Identity Not on file Sexual Orientation Not on file documented as of this encounter Plan of Treatment Not on file documented as of this encounter Visit Diagnoses Diagnosis Acute upper respiratory infections of unspecified site- Primary documented in this encounter Care Teams Horse Riding Coach Or Instructor Relationship Specialty Start Date End Date Mau Terry MD [address] [place] [phone] PCP - General 02/28/06 07/12/14 documented as of this encounter
--- OUTSIDE RECORDS SUMMARY | 2024-10-30 19:57 | XMS_ITS | Encounter Summary ---
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) Social History Tobacco Use Types Packs/Day Years Used Date Smoking Tobacco: Never Assessed Comments Unknown Sex and Gender Information Value Date Recorded Sex Assigned at Not on file Legal Sex Female 3:01 AM PLATE STRAIGHTENER Gender Identity Not on file Sexual Orientation Not on file documented as of this encounter Plan of Treatment Not on file documented as of this encounter Visit Diagnoses Diagnosis 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
--- OUTSIDE RECORDS SUMMARY | 2024-10-30 19:57 | XMS_ITS | Encounter Summary ---
Author Organization [facility] Address [address] [place] [address] Care Team Providers Care Mangle Feeder Name Role Phone Mau Terry MD Primary Care Provider [phone] Encounter Details Date Type Department Care Team (Latest Contact Info) Description 03/01/2001 Outpatient Historical [facility] [address] [facility] [address] [place] [address] Bryanna Bui MD NO ADDRESS ON FILE SCREENING MAMM-MAILG NEOPL-OTHER (Primary Dx) Social History Tobacco Use Types Packs/Day Years Used Date Smoking Tobacco: Never Assessed Comments Unknown Sex and Gender Information Value Date Recorded Sex Assigned at Not on file Legal Sex Female 3:01 AM MOBILE PHONE SALESPERSON Gender Identity Not on file Sexual Orientation Not on file documented as of this encounter Plan of Treatment Not on file documented as of this encounter Visit Diagnoses Diagnosis Other screening mammogram- Primary documented in this encounter Care Teams Mangle Feeder Relationship Specialty Start Date End Date Mau Terry MD [address] [place] [phone] PCP - General 02/28/06 07/12/14 documented as of this encounter
--- OUTSIDE RECORDS SUMMARY | 2024-10-30 19:57 | XMS_ITS | Encounter Summary ---
Author Organization [facility] Address [address] [facility] Attn: [place] [address] Care Team Providers Care Short Range Air Defense Artillery Name Role Phone Mau Terry MD Primary [...] on file Legal Sex Female 3:01 AM TEACHER THEATER ARTS Gender Identity Not on file Sexual Orientation Not on file documented as of this encounter Plan of Treatment Not on file documented as of this encounter Visit Diagnoses Not on filedocumented in this encounter Care Teams Short Range Air Defense Artillery Relationship Specialty Start Date End Date Mau Terry MD [address] [place] [phone] PCP - General 02/28/06 07/12/14 documented as of this encounter
--- OUTSIDE RECORDS SUMMARY | 2024-10-30 19:57 | XMS_ITS | Encounter Summary ---
Author Organization [facility] Address [address] [place] [address] Care Team Providers Care Brazing Machine Operator Helper Name Role Phone Mau Terry MD Primary Care Provider [phone] Encounter Details Date Type Department Care Team (Latest Contact Info) Description 01/11/2005 Outpatient Historical [facility] Medicine [place] [address] [facility] [address] [place] [address] Sven Kimball, [place] NO ADDRESS ON FILE HYPERTENSION NOS (Primary Dx); CARDIAC DYSRHYTHMIAS NEC; MALAISE AND FATIGUE NEC Social History Tobacco Use Types Packs/Day Years Used Date Smoking Tobacco: Never Assessed Comments Unknown Sex and Gender Information Value Date Recorded Sex Assigned at Not on file Legal Sex Female 3:01 AM DEXIGRAPH OPERATOR Gender Identity Not on file Sexual Orientation Not on file documented as of this encounter Plan of Treatment Not on file documented as of this encounter Visit Diagnoses Diagnosis Unspecified essential hypertension- Primary Other specified cardiac dysrhythmias(427.89) Other specified cardiac dysrhythmias Other malaise and fatigue documented in this encounter Care Teams Brazing Machine Operator Helper Relationship Specialty Start Date End Date Mau Terry MD [address] [place] [phone] PCP - General 02/28/06 07/12/14 documented as of this encounter
--- OUTSIDE RECORDS SUMMARY | 2024-10-30 19:57 | XMS_ITS | Encounter Summary ---
Author Organization [facility] Address [address] [place] [address] Care Team Providers Care Catalyst Unit Operator Name Role Phone Mau Terry MD Primary Care Provider [phone] Encounter Details Date Type Department Care Team (Latest Contact Info) Description 04/08/2004 Outpatient Historical [facility] [address] [facility] [address] [place] [address] Jamey Fraga MD NO ADDRESS ON FILE SCREENING MAMM-MAILG NEOPL-OTHER (Primary Dx) Social History Tobacco Use Types Packs/Day Years Used Date Smoking Tobacco: Never Assessed Comments Unknown Sex and Gender Information Value Date Recorded Sex Assigned at Not on file Legal Sex Female 3:01 AM CLOUD DEVELOPER Gender Identity Not on file Sexual Orientation Not on file documented as of this encounter Plan of Treatment Not on file documented as of this encounter Visit Diagnoses Diagnosis Other screening mammogram- Primary documented in this encounter Care Teams Catalyst Unit Operator Relationship Specialty Start Date End Date Mau Terry MD [address] [place] [phone] PCP - General 02/28/06 07/12/14 documented as of this encounter
--- OUTSIDE RECORDS SUMMARY | 2024-10-30 19:57 | XMS_ITS | Encounter Summary ---
Author Organization [facility] Address [address] [place] [address] Care Team Providers Care Strategic Account Director Name Role Phone Mau Terry MD Primary Care Provider [phone] Encounter Details Date Type Department Care Team (Latest Contact Info) Description 02/15/2005 Outpatient Historical [facility], Nose and Throat [address] [place] [address] Anselmo Lopez MD [address] [address] CONDUCT HEARING LOSS NOS (Primary Dx); HYPERTENSION NOS; SCREENING-LIPOID DISORDERS Social History Tobacco Use Types Packs/Day Years Used Date Smoking Tobacco: Never Assessed Comments Unknown Sex and Gender Information Value Date Recorded Sex Assigned at Not on file Legal Sex Female 3:01 AM MOLD UNLOADER Gender Identity Not on file Sexual Orientation Not on file documented as of this encounter Plan of Treatment Not on file documented as of this encounter Visit Diagnoses Diagnosis Unspecified conductive hearing loss- Primary Unspecified essential hypertension Screening for lipoid disorders documented in this encounter Care Teams Strategic Account Director Relationship Specialty Start Date End Date Mau Terry MD [address] [place] [phone] PCP - General 02/28/06 07/12/14 documented as of this encounter
--- OUTSIDE RECORDS SUMMARY | 2024-10-30 19:57 | XMS_ITS | Encounter Summary ---
Author Organization [facility] Address [address] [place] [address] Care Team Providers Care Mgmt Analyst Name Role Phone Mau Terry MD Primary Care Provider [phone] Encounter Details Date Type Department Care Team (Late st Contact Info) Description 01/02/2002 Outpatient Historical [facility] Ear, Nose and Throat [address] [place] [address] [place] [address] Social History Tobacco Use Types Packs/Day Years Used Date Smoking Tobacco: Never Assessed Comments Unknown Sex and Gender Information Value Date Recorded Sex Assigned at Not on file Legal Sex Female 3:01 AM CRACKING UNIT OPERATOR Gender Identity Not on file Sexual Orientation Not on file documented as of this encounter Plan of Treatment Not on file documented as of this encounter Visit Diagnoses Not on filedocumented in this encounter Care Teams Mgmt Analyst Relationship Specialty Start Date End Date Mau Terry MD [address] [place] [phone] PCP - General 02/28/06 07/12/14 documented as of this encounter
--- OUTSIDE RECORDS SUMMARY | 2024-10-30 19:57 | XMS_ITS | Encounter Summary ---
Author Organization [facility] Address [address] [place] [address] Care Team Providers Care Sound Effects Manager Name Role Phone Mau Terry MD Primary Care Provider [phone] Encounter Details Date Type Department Care Team (Latest Contact Info) Description 04/19/2000 Outpatient Historical [facility] Jonh Fox Jr., MD [address] [place] [address] Unspecified essential hypertension (Primary Dx); Undiagnosed cardiac murmurs Social History Tobacco Use Types Packs/Day Years Used Date Smoking Tobacco: Never Assessed Comments Unknown Sex and Gender Information Value Date Recorded Sex Assigned at Not on file Legal Sex Female 3:01 AM SERVICE DELIVERY SUPERVISOR Gender Identity Not on file Sexual Orientation Not on file documented as of this encounter Plan of Treatment Not on file documented as of this encounter Visit Diagnoses Diagnosis Unspecified essential hypertension- Primary Undiagnosed cardiac murmurs documented in this encounter Care Teams Sound Effects Manager Relationship Specialty Start Date End Date Mau Terry MD [address] [place] [phone] PCP - General 02/28/06 07/12/14 documented as of this encounter
--- OUTSIDE RECORDS SUMMARY | 2024-10-30 19:57 | XMS_ITS | Encounter Summary ---
Author Organization [facility] Address [address] [place] [address] Care Team Providers Care Underwear Finisher Name Role Phone Mau Terry MD Primary Care Provider [phone] Encounter Details Date Type Department Care Team (Latest Contact Info) Description 03/30/2004 Outpatient Historical [facility] Ear, Nose and Throat [address] [place] [address] [place] [address] Anselmo Lopez MD [address] [address] CONDUCT HEARING LOSS NOS (Primary Dx); PERIPHERAL VERTIGO NOS; IMPACTED CERUMEN; BENIGN PARXYSMAL VERTIGO Social History Tobacco Use Types Packs/Day Years Used Date Smoking Tobacco: Never Assessed Comments Unknown Sex and Gender Information Value Date Recorded Sex Assigned at Not on file Legal Sex Female 3:01 AM ASSISTANT FILM EDITOR Gender Identity Not on file Sexual Orientation Not on file documented as of this encounter Plan of Treatment Not on file documented as of this encounter Visit Diagnoses Diagnosis Unspecified conductive hearing loss- Primary Peripheral vertigo, unspecified Impacted cerumen Benign paroxysmal positional vertigo documented in this encounter Care Teams Underwear Finisher Relationship Specialty Start Date End Date Mau Terry MD [address] [place] [phone] PCP - General 02/28/06 07/12/14 documented as of this encounter
--- OUTSIDE RECORDS SUMMARY | 2024-10-30 19:57 | XMS_ITS | Encounter Summary ---
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) Social History Tobacco Use Types Packs/Day Years Used Date Smoking Tobacco: Never Assessed Comments Unknown Sex and Gender Information Value Date Recorded Sex Assigned at Not on file Legal Sex Female 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
--- OUTSIDE RECORDS SUMMARY | 2024-10-30 19:57 | XMS_ITS | Encounter Summary ---
Author Organization [facility] Address [address] [place] [address] Care Team Providers Care Pattern Illustrator Name Role Phone Mau Terry MD Primary Care Provider [phone] Encounter Details Date Type Department Care Team (Latest Contact Info) Description 01/30/2001 Outpatient Historical [facility] Jonh Fox Jr., MD [address] [place] [address] Obesity, unspecified (Primary Dx); Other seborrheic keratosis; Unspecified essential hypertension Social History Tobacco Use Types Packs/Day Years Used Date Smoking Tobacco: Never Assessed Comments Unknown Sex and Gender Information Value Date Recorded Sex Assigned at Not on file Legal Sex Female 3:01 AM ACCOUNTS MANAGER Gender Identity Not on file Sexual Orientation Not on file documented as of this encounter Plan of Treatment Not on file documented as of this encounter Visit Diagnoses Diagnosis Obesity, unspecified- Primary Other seborrheic keratosis Unspecified essential hypertension documented in this encounter Care Teams Pattern Illustrator Relationship Specialty Start Date End Date Mau Terry MD [address] [phone] PCP - General 02/28/06 07/12/14 documented as of this encounter
--- OUTSIDE RECORDS SUMMARY | 2024-10-30 19:57 | XMS_ITS | Encounter Summary ---
Author Organization [facility] Address [address] [place] [address] Care Team Providers Care Pole Framer Machine Name Role Phone Mau Terry MD Primary Care Provider [phone] Encounter Details Date Type Department Care Team (Late st Contact Info) Description 10/05/2000 Outpatient Historical [facility] Ear, Nose and Throat [address] [place] [address] [place] [address] Social History Tobacco Use Types Packs/Day Years Used Date Smoking Tobacco: Never Assessed Comments Unknown Sex and Gender Information Value Date Recorded Sex Assigned at Not on file Legal Sex Female 3:01 AM SAND WORKER Gender Identity Not on file Sexual Orientation Not on file documented as of this encounter Plan of Treatment Not on file documented as of this encounter Visit Diagnoses Not on filedocumented in this encounter Care Teams Pole Framer Machine Relationship Specialty Start Date End Date Mau Terry MD [address] [place] [phone] PCP - General 02/28/06 07/12/14 documented as of this encounter
--- OUTSIDE RECORDS SUMMARY | 2024-10-30 19:57 | XMS_ITS | Encounter Summary ---
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
--- OUTSIDE RECORDS SUMMARY | 2024-10-30 19:57 | XMS_ITS | Encounter Summary ---
Author Organization [facility] Address [address] [place] [address] Care Team Providers Care Email Manager Name Role Phone Mau Terry MD Primary Care Provider [phone] Encounter Details Date Type Department Care Team (Latest Contact Info) Description 02/29/[address] [facility] [address] [facility] [address] [place] [address] Bryanna Bui MD NO ADDRESS ON FILE Lump or mass in breast (Primary Dx) Social History Tobacco Use Types Packs/Day Years Used Date Smoking Tobacco: Never Assessed Comments Unknown Sex and Gender Information Value Date Recorded Sex Assigned at Not on file Legal Sex Female 3:01 AM WARPING MACHINE OPERATOR Gender Identity Not on file Sexual Orientation Not on file documented as of this encounter Plan of Treatment Not on file documented as of this encounter Visit Diagnoses Diagnosis Lump or mass in breast- Primary documented in this encounter Care Teams Email Manager Relationship Specialty Start Date End Date Mau Terry MD [address] [place] [phone] PCP - General 02/28/06 07/12/14 documented as of this encounter
--- OUTSIDE RECORDS SUMMARY | 2024-10-30 19:57 | XMS_ITS | Encounter Summary ---
Author Organization [facility] Address [address] [place] [address] Care Team Providers Care Hse Coordinator Name Role Phone Mau Terry MD Primary Care Provider [phone] Encounter Details Date Type Department Care Team (Latest Contact Info) Description 03/28/[address] [facility] Medicine[place] [address] [place] [address] Mau Terry MD [address] [place] [phone] Unspecified Essential Hypertension (Primary Dx); DM w/o Complication Type II (CMS/HCC); Vaccin Strep Pneumoniae; Vaccine for influenza Social History Tobacco Use Types Packs/Day Years Used Date Smoking Tobacco: Never Assessed Comments Unknown Sex and Gender Information Value Date Recorded Sex Assigned at Not on file Legal Sex Female 3:01 AM NURSING OFFICER Gender Identity Not on file Sexual [...] influenza documented in this encounter Care Teams Hse Coordinator Relationship Specialty Start Date End Date Mau Terry MD [address] [place] [phone] PCP - General 02/28/06 07/12/14 documented as of this encounter
--- OUTSIDE RECORDS SUMMARY | 2024-10-30 19:57 | XMS_ITS | Encounter Summary ---
Author Organization [facility] Address [address] [place] [address] Care Team Providers Care Vegetable Vendor Name Role Phone Mau Terry MD Primary Care Provider [phone] Encounter Details Date Type Department Care Team (Latest Contact Info) Description 08/27/2004 Outpatient Historical [facility] [address] [place] [address] AMBULANCE, [facility] ELB/FOREARM/WRST INJURY NOS (Primary Dx) Social History Tobacco Use Types Packs/Day Years Used Date Smoking Tobacco: Never Assessed Comments Unknown Sex and Gender Information Value Date Recorded Sex Assigned at Not on file Legal Sex Female 3:01 AM SHIP BOSS Gender Identity Not on file Sexual Orientation Not on file documented as of this encounter Plan of Treatment Not on file documented as of this encounter Visit Diagnoses Diagnosis Injury, other and unspecified, elbow, forearm, and wrist- Primary documented in this encounter Care Teams Vegetable Vendor Relationship Specialty Start Date End Date Mau Terry MD [address] [place] [phone] PCP - General 02/28/06 07/12/14 documented as of this encounter
--- OUTSIDE RECORDS SUMMARY | 2024-10-30 19:57 | XMS_ITS | Encounter Summary ---
Author Organization [facility] Address [address] [place] [address] Care Team Providers Care Modeling And Simulation Analyst Name Role Phone Mau Terry MD Primary Care Provider [phone] Encounter Details Date Type Department Care Team (Latest Contact Info) Description 02/08/2005 Outpatient Historical [facility] Medicine [place] [address] [facility] [address] [place] [address] Sven Kimball, [place] NO ADDRESS ON FILE ELEV TRANSAMINASE/LDH (Primary Dx); Plantar fibromatosis; PURE HYPERGLYCERIDEMIA; Pain in limb Social History Tobacco Use Types Packs/Day Years Used Date Smoking Tobacco: Never Assessed Comments Unknown Sex and Gender Information Value Date Recorded Sex Assigned at Not on file Legal Sex Female 3:01 AM RESORT DESK CLERK Gender Identity Not on file Sexual [...] limb documented in this encounter Care Teams Modeling And Simulation Analyst Relationship Specialty Start Date End Date Mau Terry MD [address] [place] [phone] PCP - General 02/28/06 07/12/14 documented as of this encounter
--- OUTSIDE RECORDS SUMMARY | 2024-10-30 19:57 | XMS_ITS | Encounter Summary ---
Author Organization [facility] Address [address] [place] [address] Care Team Providers Care Certified Midwife Name Role Phone Mau Terry MD Primary Care Provider [phone] Encounter Details Date Type Department Care Team (Latest Contact Info) Description 05/24/2005 Outpatient Historical [facility] Medicine [place] [address] [facility] [address] [place] [address] Sven Kimball, [place] NO ADDRESS ON FILE SWELLING OF LIMB (Primary Dx); Plantar fibromatosis; HYPERTENSION NOS Social History Tobacco Use Types Packs/Day Years Used Date Smoking Tobacco: Never Assessed Comments Unknown Sex and Gender Information Value Date Recorded Sex Assigned at Not on file Legal Sex Female 3:01 AM BUSINESS ADMINISTRATION PROGRAM CHAIR Gender Identity Not on file Sexual Orientation Not on file documented as of this encounter Plan of Treatment Not on file documented as of this encounter Visit Diagnoses Diagnosis Swelling of limb- Primary Plantar fibromatosis Plantar fascial fibromatosis Unspecified essential hypertension documented in this encounter Care Teams Certified Midwife Relationship Specialty Start Date End Date Mau Terry MD [address] [place] [phone] PCP - General 02/28/06 07/12/14 documented as of this encounter
--- OUTSIDE RECORDS SUMMARY | 2024-10-30 19:57 | XMS_ITS | Encounter Summary ---
Author Organization [facility] Address [address] [place] [address] Care Team Providers Care Rural Mail Contractor Name Role Phone Mau Terry MD Primary Care Provider [phone] Reason for Referral * Outpatient Services (Routine) - Closed Specialty Diagnoses / Procedures Referred By Jaqueline t Referred To Contact Diagnoses Post mastoidectomy sequelae Excessive granulation tissue Procedures CT TEMPORAL BONE WO CONTRAST Twan Garcia PA [facility] [address] [place] [address] Phone: tel: fax: Referral ID Status Reason Start Date Expiration Date Visits Re quested Visits Authorized [id number] Closed 01/23/2012 01/22/2013 1 1 Encounter Details Date Type Department Care Team (Late st Contact Info) Description 01/23/2012 Ancillary Orders [facility] CT Scan [place] [address] [place] [phone] Twan Garcia PA [facility] [address] [place] [address] Post mastoidectomy sequelae; Excessive granulation tissue Social History Tobacco Use Types Packs/Day Years Used Date Smoking Tobacco: Never Smokeless Tobacco: Never Alcohol Use Standard Drinks/Week Comments No 0 (1 standard drink = 0.6 oz pur e alcohol) Comments No Sex and Gender Information Value Date Recorded Sex Assigned at Not on file 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
--- OUTSIDE RECORDS SUMMARY | 2024-10-30 19:57 | XMS_ITS | Encounter Summary ---
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) Social History Tobacco Use Types Packs/Day Years Used Date Smoking Tobacco: Never Assessed Comments Unknown Sex and Gender Information Value Date Recorded Sex Assigned at Not on file 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
--- OUTSIDE RECORDS SUMMARY | 2024-10-30 19:57 | XMS_ITS | Encounter Summary ---
Author Organization [facility] Address [address] [place] [address] Care Team Providers Care Lamination Operator Name Role Phone Mau Terry MD Primary Care Provider [phone] Encounter Details Date Type Department Care Team (Latest Contact Info) Description 08/27/2000 Outpatient Historical [facility] Jonh Fox Jr., MD [address] [place] [address] Bronchitis, not specified as acute or chronic (Primary Dx); Other and unspecified chronic nonsuppurative otitis media Social History Tobacco Use Types Packs/Day Years Used Date Smoking Tobacco: Never Assessed Comments Unknown Sex and Gender Information Value Date Recorded Sex Assigned at Not on file Legal Sex Female 3:01 AM FINANCIAL MANAGEMENT CONSULTANT Gender Identity Not on file Sexual Orientation Not on file documented as of this encounter Plan of Treatment Not on file documented as of this encounter Visit Diagnoses Diagnosis Bronchitis, not specified as acute or chronic- Primary Other and unspecified chronic nonsuppurative otitis media documented in this encounter Care Teams Lamination Operator Relationship Specialty Start Date End Date Mau Terry MD [address] [place] [phone] PCP - General 02/28/06 07/12/14 documented as of this encounter
--- OUTSIDE RECORDS SUMMARY | 2024-10-30 19:57 | XMS_ITS | Encounter Summary ---
Author Organization [facility] Address [address] [place] [address] Care Team Providers Care Incoming Inspector Name Role Phone Mau Terry MD Primary Care Provider [phone] Encounter Details Date Type Department Care Team (Latest Contact Info) Description 06/08/2004 Outpatient Historical [facility] [employer] [place] [address] [place] [address] Sven Kimball PA NO ADDRESS ON FILE SEBORRHEIC KERATOSIS INFLAMED (Primary Dx) Social History Tobacco Use Types Packs/Day Years Used Date Smoking Tobacco: Never Assessed Comments Unknown Sex and Gender Information Value Date Recorded Sex Assigned at Not on file Legal Sex Female 3:01 AM FINANCIAL COMPLIANCE MANAGER Gender Identity Not on file Sexual Orientation Not on file documented as of this encounter Plan of Treatment Not on file documented as of this encounter Visit Diagnoses Diagnosis Inflamed seborrheic keratosis- Primary documented in this encounter Care Teams Incoming Inspector Relationship Specialty Start Date End Date Mau Terry MD [address] [place] [phone] PCP - General 02/28/06 07/12/14 documented as of this encounter
--- OUTSIDE RECORDS SUMMARY | 2024-10-30 19:57 | XMS_ITS | Encounter Summary ---
Author Organization [facility] Address [address] [place] [address] Care Team Providers Care Oil Well Fishing Tool Technician Name Role Phone Mau Terry MD Primary Care Provider [phone] Encounter Details Date Type Department Care Team (Latest Contact Info) Description 02/23/2006 Outpatient Historical [facility] [address] [place] [address] Mau Terry MD [address] [place] [phone] Routine Medical Exam (Primary Dx); Dysphagia; Other Abnormal Blood Chemistry; Unspecified Essential Hypertension Social History Tobacco Use Types Packs/Day Years Used Date Smoking Tobacco: Never Assessed Comments Unknown Sex and Gender Information Value Date Recorded Sex Assigned at Not on file Legal Sex Female 3:01 AM PHOTOGRAPHIC PRESS SCREWMAKER Gender Identity Not on file Sexual Orientation Not on file documented as of this encounter Plan of Treatment Not on file documented as of this encounter Visit Diagnoses Diagnosis Routine medical exam- Primary Routine general medical examination at a health care facility Dysphagia Other abnormal blood chemistry Unspecified essential hypertension documented in this encounter Care Teams Oil Well Fishing Tool Technician Relationship Specialty Start Date End Date Mau Terry MD [address] [place] [phone] PCP - General 02/28/06 07/12/14 documented as of this encounter
--- OUTSIDE RECORDS SUMMARY | 2024-10-30 19:57 | XMS_ITS | Encounter Summary ---
Author Organization [facility] Address [address] [place] [address] Care Team Providers Care Painter Decorator Name Role Phone Mau Terry MD Primary Care Provider [phone] Encounter Details Date Type Department Care Team (Latest Contact Info) Description 07/05/2001 Outpatient [facility] Facial Plastic Surgery- [address] [place] [address] Tano Meneses MD NO ADDRESS ON FILE UNCERTAIN BEHAV NEOPL SKIN (Primary Dx) Social History Tobacco Use Types Packs/Day Years Used Date Smoking Tobacco: Never Assessed Comments Unknown Sex and Gender Information Value Date Recorded Sex Assigned at Not on file Legal Sex Female 3:01 AM POWERHOUSE TENDER Gender Identity Not on file Sexual Orientation Not on file documented as of this encounter Plan of Treatment Not on file documented as of this encounter Visit Diagnoses Diagnosis Neoplasm of uncertain behavior of skin- Primary documented in this encounter Care Teams Painter Decorator Relationship Specialty Start Date End Date Mau Terry MD [address] [place] [phone] PCP - General 02/28/06 07/12/14 documented as of this encounter
--- OUTSIDE RECORDS SUMMARY | 2024-10-30 19:57 | XMS_ITS | Encounter Summary ---
Author Organization [facility] Address [address] [place] [address] Care Team Providers Care Cna Per Diem Name Role Phone Mau Terry MD Primary Care Provider [phone] Encounter Details Date Type Department Care Team (Latest Contact Info) Description 03/16/2006 Outpatient [facility] [address] [place] [address] Mau Terry MD [address] [place] [phone] Other Screening Mammogram (Primary Dx) Social History Tobacco Use Types Packs/Day Years Used Date Smoking Tobacco: Never Assessed Comments Unknown Sex and Gender Information Value Date Recorded Sex Assigned at Not on file Legal Sex Female 3:01 AM ETHYLENE COMPRESSOR OPERATOR Gender Identity Not on file Sexual Orientation Not on file documented as of this encounter Plan of Treatment Not on file documented as of this encounter Visit Diagnoses Diagnosis Other screening mammogram- Primary documented in this encounter Care Teams Cna Per Diem Relationship Specialty Start Date End Date Mau Terry MD [address] [place] [phone] PCP - General 02/28/06 07/12/14 documented as of this encounter
--- OUTSIDE RECORDS SUMMARY | 2024-10-30 19:57 | XMS_ITS | Encounter Summary ---
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) Social History Tobacco Use Types Packs/Day Years Used Date Smoking Tobacco: Never Assessed Comments Unknown Sex and Gender Information Value Date Recorded Sex Assigned at Not on file Legal Sex Female 3:01 AM EMBEDDED ENGINEER Gender Identity Not on file Sexual Orientation Not on file documented as of this encounter Plan of Treatment Not on file documented as of this encounter Visit Diagnoses Diagnosis Other and unspecified malignant neoplasm of skin of other and unspecified parts of face- Primary documented in this encounter Care Teams Tailing Hand Relationship Specialty Start Date End Date Mau Terry MD [address] [place] [phone] PCP - General 02/28/06 07/12/14 documented as of this encounter
--- OUTSIDE RECORDS SUMMARY | 2024-10-30 19:57 | XMS_ITS | Clinical Summary ---
Author Organization [facility] Estela Tadeo [facility] Address [address] [place] [address] Care Team Providers Care Terra Cotta Roofer Helper Name Role Phone Unavailable Primary Care Provider [...] flash glucose scanning reader (FreeStyle Lucila 2 [place]) Misc Use to check BG. 1 Each [...] DAILY 45 mL 3 2 Active Insulin Panacea, Disposable, (BD Alexus 2nd Gen Pen Needle) [...] of blood transfusion s as patient is Rastafari 04/29/2012 01/01/2013 Abdominal or pelvic swelling , mass, or lump, other specified site 04/29/2012 05/27/2012 Rectal bleeding 04/18/2012 01/01/2013 Encounters Date Type Department Care Team Description 10/16/2024 2:18 PM CDT - 10/16/2024 11:59 PM CDT Hospital Encounter [facility] Therapy [facility] [address] [facility] [address] [place] [address] Armando Wilkinson DO Peters, Jeffrey B, Physical Therapist Discharge Disposition: Home or Self Care 10/09/2024 2:30 PM CDT - 10/09/2024 11:59 PM CDT Hospital Encounter [facility] Therapy [facility] [address] [facility] [address] [place] [address] Armando Wilkinson DO Peters, Jeffrey B, Physical Therapist Discharge Disposition: Home or Self Care 09/24/2024 2:20 PM CDT Office Visit [facility] Endocrinology [facility] [address] [place] [address] Carrie Osuna PA Type 2 diabetes mellitus with hyperglycemia, with long-term current use of insulin ([facility]) (Primary Dx) 09/16/2024 Telephone [facility] Endocrin[facility] [address] [place] [address] Carrie Osuna PA Patient Communication (Called to remind about upcoming appointment date and time as requested by pt and . ) 09/12/2024 11:00 AM CDT - 09/12/2024 11:59 PM CDT Hospital Encounter [facility] Therapy [facility] [address] [address] [place] [address] Armando Wilkinson DO Peters, Jeffrey B, Physical [...] on file Legal Sex Female 12:33 PM GINSENG FARMER Gender Identity Not on file Sexual Orientation Not on file Last Filed Vital Signs Vital Sign Reading Time Taken Comments Blood Pressure 120/80 09/24/2024 2:34 PM CDT Pulse 78 09/24/2024 2:34 PM CDT Temperature - - Respiratory Rate 16 06/01/2022 11:31 AM GINSENG FARMER Oxygen Saturation 98% 09/24/2024 2:34 PM CDT Inhaled Oxygen Concentration - - Weight 87.8 kg (193 lb 9.6 oz) 09/24/2024 2:34 P M CDT Height 160 cm (5' 3 ) 09/24/2024 2:34 PM CDT Body Mass Index 34.29 09/24/2024 2:34 PM CDT Plan of Treatment Upcoming Encounters Date Type Department Care Team (Late st Contact Info) Description 03/26/2025 1:20 PM GINSENG FARMER Office Visit [facility] Endocrinology [facility] [address] [facility] [place] [address] [place] [phone] Carrie Osuna PA [address] [facility] [address] [place] [address] Health Maintenance Due Date Last [...] exists OSTEOPOROSIS SCREENING 2022 INFLUENZA VACCINE (#1) 2024 2, 01/19/2011, 03/28/2006 DIABETES HBA1C Q 6 MONTHS 12/24/20242024, 03/17/2024, 12/06/2023, Additional history exists LDL CHOLESTEROL ANNUAL 03/17/2025 , 07/06/2020, 09/03/2018 Procedures Procedure Name Priority Date/Time Associated Diagnosis Comments HEMOGLOBIN A1C Routine 06/23/2024 4:23 PM GINSENG FARMER Type 2 diabetes mellitus with hyperglycemia, with long-term current use of insulin ([facility]) LIPID PANEL Routine 03/17/2024 MICROALBUMIN/CREATIN INE RATIO, RANDOM UR Routine 07/06/2020 11:54 AM CDT HM DIABETES EYE EXAM 01/05/2020 12:00 AM CDT MAMMO SCREEN BILAT W OR WO CAD Routine 12/29/2011 2:40 PM CDT Other screening mammogram from Last 3 Months or Most Recently Relevant to Health Maintenance Results * (ABNORMAL) HEMOGLOBIN A1C (06/23/2024 4:23 PM GINSENG FARMER) [facility] HEMOGLOBIN A1C 12.4(H) <5.7 % of total Hgb [facility] Comment: For someone without known [...] children. ESTIMATED AVERAGE GLUCOSE (MG/DL) 309 mg/dL [facility] ESTIMATED AVERAGE GLUCOSE (MMOL/L) 17.1 mmol/L [employer] [facility] Comment: FASTING:NO FASTING: NO Test Performed at: [facility] [address] [place] [address] Paramjit Salazar MD Blood 06/23/2024 4:23 PM GINSENG FARMER 06/23/2024 4:23 PM GINSENG FARMER Carrie WOODARD CHEMISTRY ORDERABLES Final Re sult [facility] [phone] [facility] [address] [place] [address] * LIPID PANEL (03/17/2024) [facility] ABSTRACTED CHOLESTEROL 245 ABSTRACTED TRIGLYCERIDE 387 ABSTRACTED HDL 41 ABSTRACTED LDL CALCULATED 127 Blood 03/17/2024 Abstract Provider CHEMISTRY ORDERABLES Final Res ult * (ABNORMAL) MICROALBUMIN/CREATININE RATIO, RANDOM UR (07/06/2020 11:54 AM CDT) [facility] MICROALBUMIN, URINE 38.3 No Reference Range mg/dL 07/06/2020 2:17 PM CDT [facility] CREATININE, URINE 75.3 29.0 - 226.0 mg/dL 07/06/2020 2:17 PM CDT [facility] Comment:Reference Range vari es with fluid intake and diet. MICROALBUMIN/ CREAT RATIO, UR 508.6(H) <25.0 mg/g 07/06/2020 2:17 PM CDT [facility] Urine URINE SPECIMEN OBTAINED BY CLEAN CATCH PROCEDURE / Unknown Collection / Unknown 07/06/2020 11:54 AM CDT 07/06/2020 12:19 PM CDT Narrative [facility] - 07/06/2020 2:17 PM CDT Condition Microalbumin/Creat ratio Normal Males <17 Normal Females <25 Microalbuminuria Males 17-299 Microalbuminuria Females 25-299 Overt proteinuria >=300 Corey Lou MD URINE ORDERABLES Final Result [facility] IA# [id number] [address] [place] [address] * DIABETES EYE EXAM (01/05/2020 12:00 AM CDT) [facility] Scanning HEALTH MAINTENANCE Final Result * MAMMO [...] Most Recently Relevant to Health Maintenance [place] [address] [place] [address] MEDICARE HMO Advance Directives For more information, please contact: [phone] Documents on File Type Date Recorded Patient Lithoduplicator Operator Expl anation Advance Directive POA 07/06/2020 11:34 AM Advance Directive POA
--- OUTSIDE RECORDS SUMMARY | 2024-10-30 19:57 | XMS_ITS | Encounter Summary ---
Author Organization [facility] Address [address] [place] [address] Care Team Providers Care Bar Host Name Role Phone Mau Terry MD Primary Care Provider [phone] Encounter Details Date Type Department Care Team (Latest Contact Info) Description 03/08/2000 Outpatient Historical [facility] [address] [facility] [address] [place] [address] Jamey Fraga MD NO ADDRESS ON FILE Nonspecific abnormal findings on radiological or other examinations of the breast (Primary Dx) Social History Tobacco Use Types Packs/Day Years Used Date Smoking Tobacco: Never Assessed Comments Unknown Sex and Gender Information Value Date Recorded Sex Assigned at Not on file 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
--- OUTSIDE RECORDS SUMMARY | 2024-10-30 19:57 | XMS_ITS | Encounter Summary ---
Author Organization [employer] [facility] Address [address] [facility] Attn: [place] [address] Care Team Providers Care Sports Medicine Coordinator Name Role Phone Mau Terry MD Primary Care Provider Encounter Details Date Type Department Care Team (Late st Contact Info) Description 03/01/2001 Outpatient Historical [facility], Jonh Howell MD [address] [place] [phone] Social History Tobacco Use Types Packs/Day Years Used Date Smoking Tobacco: Never Assessed Comments Unknown Sex and Gender Information Value Date Recorded Sex Assigned at Not on file Legal Sex Female 3:01 AM AUCTION CLERK Gender Identity Not on file Sexual Orientation Not on file documented as of this encounter Plan of Treatment Not on file documented as of this encounter Visit Diagnoses Not on filedocumented in this encounter Care Teams Sports Medicine Coordinator Relationship Specialty Start Date End Date Mua Terry MD [address] [place] [phone] PCP - General 02/28/06 07/12/14 documented as of this encounter
--- OUTSIDE RECORDS SUMMARY | 2024-10-30 19:57 | XMS_ITS | Encounter Summary ---
Author Organization [facility] Address [address] [place] [address] Care Team Providers Care Barrel Filler Head Name Role Phone Mau Terry MD Primary Care Provider [phone] Encounter Details Date Type Department Care Team (Latest Contact Info) Description 01/02/2002 Outpatient Historical [facility] Jonh Fox Jr., MD [address] [place] [address] CHR SEROUS OM SIMP/NOS (Primary Dx); PERFORAT TYMPAN MEMB NOS Social History Tobacco Use Types Packs/Day Years Used Date Smoking Tobacco: Never Assessed Comments Unknown Sex and Gender Information Value Date Recorded Sex Assigned at Not on file Legal Sex Female 3:01 AM CUSTOMS EXAMINER Gender Identity Not on file Sexual Orientation Not on file documented as of this encounter Plan of Treatment Not on file documented as of this encounter Visit Diagnoses Diagnosis Simple or unspecified chronic serous otitis media- Primary Perforation of tympanic membrane, unspecified documented in this encounter Care Teams Barrel Filler Head Relationship Specialty Start Date End Date Mau Terry MD [address] [place] [phone] PCP - General 02/28/06 07/12/14 documented as of this encounter
--- OUTSIDE RECORDS SUMMARY | 2024-10-30 19:57 | XMS_ITS | Encounter Summary ---
Author Organization [facility] Address [address] [place] [address] Care Team Providers Care Waiter Name Role Phone Mau Terry MD Primary Care Provider [phone] Encounter Details Date Type Department Care Team (Latest Contact Info) Description 05/31/2006 Outpatient Historical 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
--- OUTSIDE RECORDS SUMMARY | 2024-10-30 19:57 | XMS_ITS | Encounter Summary ---
Author Organization [facility] Address [address] [place] [address] Care Team Providers Care Teaching Pastor Name Role Phone Mau Terry MD Primary Care Provider [phone] Encounter Details Date Type Department Care Team (Latest Contact Info) Description 10/31/[address] 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 (Primary Dx) Social History Tobacco Use Types Packs/Day Years Used Date Smoking Tobacco: Never Assessed Comments Unknown Sex and Gender Information Value Date Recorded Sex Assigned at Not on file Legal Sex Female 3:01 AM MEDICATION COORDINATOR Gender Identity Not on file Sexual Orientation Not on file documented as of this encounter Plan of Treatment Not on file documented as of this encounter Visit Diagnoses Diagnosis Other and unspecified malignant neoplasm of skin of other and unspecified parts of face- Primary documented in this encounter Care Teams Teaching Pastor Relationship Specialty Start Date End Date Mau Terry MD [address] [place] [phone] PCP - General 02/28/06 07/12/14 documented as of this encounter
--- OUTSIDE RECORDS SUMMARY | 2024-10-30 19:57 | XMS_ITS | Encounter Summary ---
Author Organization [employer] Address [address] 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
--- OUTSIDE RECORDS SUMMARY | 2024-10-30 19:57 | XMS_ITS | Encounter Summary ---
Author Organization [facility] Address [address] [place] [address] Care Team Providers Care Demand Planning Manager Name Role Phone Mau Terry MD Primary Care Provider [phone] Encounter Details Date Type Department Care Team (Latest Contact Info) Description 02/16/1998 Outpatient Historical [facility] Cardiology- [place] [address] [place] [address] Obed Mejia MD [address] [facility] [address] [place] [address] Palpitations (Primary Dx) Social History Tobacco Use Types Packs/Day Years Used Date Smoking Tobacco: Never Assessed Comments Unknown Sex and Gender Information Value Date Recorded Sex Assigned at Not on file Legal Sex Female 3: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
--- OUTSIDE RECORDS SUMMARY | 2024-10-30 19:57 | XMS_ITS | Encounter Summary ---
Author Organization [facility] Address [address] [place] [address] Care Team Providers Care Coffee Urn Attendant Name Role Phone Mau Terry MD Primary Care Provider [phone] Encounter Details Date Type Department Care Team (Latest Contact Info) Description 08/31/2006 Outpatient Historical [facility] Medicine-[place] [address] [place] [address] Mau Terry MD [address] [place] [phone] DM w/o Complication Type II (CMS/HCC) (Primary Dx); Unspecified Essential Hypertension; Lateral Epicondylitis; Unspecified Infective Otitis Externa Social History Tobacco Use Types Packs/Day Years Used Date Smoking Tobacco: Never Assessed Comments Unknown Sex and Gender Information Value Date Recorded Sex Assigned at Not on file 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
--- OUTSIDE RECORDS SUMMARY | 2024-10-30 19:57 | XMS_ITS | Encounter Summary ---
Author Organization [facility] Address [address] [place] [address] Care Team Providers Care Educational Technology Coordinator Name Role Phone Mau Terry MD Primary Care Provider [phone] Reason for Referral * Outpatient Services (Routine) - Closed Specialty Diagnoses / Procedures Referred By Contac t Referred To Contact Diagnoses Other screening mammogram Procedures MAMMO DIGITAL SCREEN BILAT Mau Terry MD [address] [place] [phone] Phone: tel: fax: [facility] CALL TO MAKE APPOINTMENT ONLY [address] [place] [address] Phone: tel: fax: Referral ID Status Reason Start Date Expiration Date V isits Requested Visits Authorized [id number] Closed F [facility] TO SCHEDULE (SGF) 11/03/2011 11/02/2012 1 1 Encounter Details Date Type Department Care Team (Latest Contact Info) Description 11/03/2011 Ancillary Orders [facility] CALL TO MAKE APPOINTMENT ONLY [address] [place] [address] Mau Terry MD [address] [place] [address] Other screening mammogram Social History Tobacco Use Types Packs/Day Years Used Date Smoking Tobacco: Never Smokeless Tobacco: Never Alcohol Use Standard Drinks/Week Comments No 0 (1 standard drink = 0.6 oz pur e alcohol) Comments No Sex and Gender Information Value Date Recorded Sex Assigned at Not on file 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
--- OUTSIDE RECORDS SUMMARY | 2024-10-30 19:57 | XMS_ITS | Encounter Summary ---
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 (Primary Dx); Benign hayley skin trunk Social History Tobacco Use Types Packs/Day Years Used Date Smoking Tobacco: Never Assessed Comments Unknown Sex and Gender Information Value Date Recorded Sex Assigned at Not on file 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
--- OUTSIDE RECORDS SUMMARY | 2024-10-30 19:57 | XMS_ITS | Encounter Summary ---
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 (Primary Dx) Social History Tobacco Use Types Packs/Day Years Used Date Smoking Tobacco: Never Assessed Comments Unknown Sex and Gender Information Value Date Recorded Sex Assigned at Not on file 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
--- OUTSIDE RECORDS SUMMARY | 2024-10-30 19:57 | XMS_ITS | Encounter Summary ---
Author Organization [facility] Address [address] [place] [address] Care Team Providers Care Apprentice Jockey Name Role Phone Mau Terry MD Primary Care Provider [phone] Encounter Details Date Type Department Care Team (Latest Contact Info) Description 07/18/2000 Outpatient Historical [facility] Ruddy Calloway, Jonh Hoewll MD [address] [place] [address] Chalazion (Primary Dx); Hypoactive sexual desire Social History Tobacco Use Types Packs/Day Years Used Date Smoking Tobacco: Never Assessed Comments Unknown Sex and Gender Information Value Date Recorded Sex Assigned at Not on file Legal Sex Female 3:[address]ERK Gender Identity Not on file Sexual Orientation Not on file documented as of this encounter Plan of Treatment Not on file documented as of this encounter Visit Diagnoses Diagnosis Chalazion- Primary Hypoactive sexual desire Hypoactive sexual desire disorder documented in this encounter Care Teams Apprentice Jockey Relationship Specialty Start Date End Date Mau Terry MD [address] [place] [phone] PCP - General 02/28/06 07/12/14 documented as of this encounter
--- OUTSIDE RECORDS SUMMARY | 2024-10-30 19:57 | XMS_ITS | Encounter Summary ---
Author Organization [facility] Address [address] [facility] Attn: [place] [address] Care Team Providers Care Laboratory Tester Name Role Phone Mau Terry MD Primary Care Provider [phone] Encounter Details Date Type Department Care Team (Late st Contact Info) Description 02/08/2005 Outpatient Historical Bienvenido Louise DO NO ADDRESS ON FILE Social History Tobacco Use Types Packs/Day Years Used Date Smoking Tobacco: Never Assessed Comments Unknown Sex and Gender Information Value Date Recorded Sex Assigned at Not on file 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
--- OUTSIDE RECORDS SUMMARY | 2024-10-30 19:57 | XMS_ITS | Encounter Summary ---
Author Organization [facility] Address [address] [place] [address] Care Team Providers Care Recruitment Assistant Name Role Phone Mau Terry MD Primary Care Provider [phone] Encounter Details Date Type Department Care Team (Latest Contact Info) Description 03/15/2004 Outpatient Historical [facility] Medicine- [place] [address] [place] [address] Sven Kimball, [place] NO ADDRESS ON FILE DIZZINESS AND GIDDINESS (Primary Dx); OTALGIA NOS; HYPOTENSION NOS Social History Tobacco Use Types Packs/Day Years Used Date Smoking Tobacco: Never Assessed Comments Unknown Sex and Gender Information Value Date Recorded Sex Assigned at Not on file 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
--- OUTSIDE RECORDS SUMMARY | 2024-10-30 19:57 | XMS_ITS | Encounter Summary ---
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
--- OUTSIDE RECORDS SUMMARY | 2024-10-30 19:57 | XMS_ITS | Encounter Summary ---
Author Organization [facility] Address [address] [place] [address] Care Team Providers Care Director Alliance Marketing Name Role Phone Mau Terry MD Primary Care Provider [phone] Encounter Details Date Type Department Care Team (Latest Contact Info) Description 05/10/2006 Outpatient Historical [facility] Endoscopy [place] [address] [place] [address] Frederick Choudhury MD [address] [place] [address] Dysphagia (Primary Dx) Social History Tobacco Use Types Packs/Day Years Used Date Smoking Tobacco: Never Assessed Comments Unknown Sex and Gender Information Value Date Recorded Sex Assigned at Not on file Legal Sex Female 3: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
--- OUTSIDE RECORDS SUMMARY | 2024-10-30 19:57 | XMS_ITS | Encounter Summary ---
Author Organization [facility] Address [address] [place] [address] Care Team Providers Care Recreation Facilities Supervisor Name Role Phone Mau Terry MD Primary Care Provider [phone] Encounter Details Date Type Department Care Team (Latest Contact Info) Description 09/08/[address] [facility] [address] [facility] [address] [place] [address] Jamey Fraga MD NO ADDRESS ON FILE Other screening mammogram (Primary Dx) Social History Tobacco Use Types Packs/Day Years Used Date Smoking Tobacco: Never Assessed Comments Unknown Sex and Gender Information Value Date Recorded Sex Assigned at Not on file Legal Sex Female 3:01 AM HEAT TREATER Gender Identity Not on file Sexual Orientation Not on file documented as of this encounter Plan of Treatment Not on file documented as of this encounter Visit Diagnoses Diagnosis Other screening mammogram- Primary documented in this encounter Care Teams Recreation Facilities Supervisor Relationship Specialty Start Date End Date Mau Terry MD [address] [place] [phone] PCP - General 02/28/06 07/12/14 documented as of this encounter
--- OUTSIDE RECORDS SUMMARY | 2024-10-30 19:57 | XMS_ITS | Encounter Summary ---
Author Organization [facility] Address [address] [facility] Attn: [place] [address] Care Team Providers Care Rotary Engraver Name Role Phone Mau Terry MD Primary Care Provider [phone] Encounter Details Date Type Department Care Team (Late st Contact Info) Description 01/10/2000 Outpatient Historical Ruddy Calloway, Jonh Howell MD [address] [place] [address] Social History Tobacco Use Types Packs/Day Years Used Date Smoking Tobacco: Never Assessed Comments Unknown Sex and Gender Information Value Date Recorded Sex Assigned at Not on file Legal Sex Female 3:01 AM ROD POINTER Gender Identity Not on file Sexual Orientation Not on file documented as of this encounter Plan of Treatment Not on file documented as of this encounter Visit Diagnoses Not on filedocumented in this encounter Care Teams Rotary Engraver Relationship Specialty Start Date End Date Mau Terry MD [address] [place] [phone] PCP - General 02/28/06 07/12/14 documented as of this encounter
--- OUTSIDE RECORDS SUMMARY | 2024-10-30 19:57 | XMS_ITS | Encounter Summary ---
Author Organization [facility] Address [address] [place] [address] Care Team Providers Care Career Development Consultant Name Role Phone Mau Terry MD Primary Care Provider [phone] Encounter Details Date Type Department Care Team (Latest Contact Info) Description 02/28/2006 Outpatient Historical [facility] Imaging Services [address] [place] [address] Mau Terry MD [address] [place] [phone] Encounters for Unspecified Administrative Purpose (Primary Dx) Social History Tobacco Use Types Packs/Day Years Used Date Smoking Tobacco: Never Assessed Comments Unknown Sex and Gender Information Value Date Recorded Sex Assigned at Not on file 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
--- OUTSIDE RECORDS SUMMARY | 2024-10-30 19:57 | XMS_ITS | Encounter Summary ---
Author Organization [employer] [facility] Address [address] [place] [address] Care Team Providers Care Manager Enrollment Name Role Phone Mau Terry MD Primary Care Provider [phone] Encounter Details Date Type Department Care Team (Latest Contact Info) Description 04/08/2004 Outpatient [facility] [address] [place] [address] Bienvenido Louise, NO ADDRESS ON FILE SCREENING MAMM-MAILG NEOPL-OTHER (Primary Dx) Social History Tobacco Use Types Packs/Day Years Used Date Smoking Tobacco: Never Assessed Comments Unknown Sex and Gender Information Value Date Recorded Sex Assigned at Not on file Legal Sex Female 3:01 AM DRAFTER PLUMBING Gender Identity Not on file Sexual Orientation Not on file documented as of this encounter Plan of Treatment Not on file documented as of this encounter Visit Diagnoses Diagnosis Other screening mammogram- Primary documented in this encounter Care Teams Manager Enrollment Relationship Specialty Start Date End Date Mau Terry MD [facility] [address] [place] [phone] PCP - General 02/28/06 07/12/14 documented as of this encounter
--- OUTSIDE RECORDS SUMMARY | 2024-10-30 19:57 | XMS_ITS | Encounter Summary ---
Author Organization [facility] Address [address] [place] [address] Care Team Providers Care Strategies Analyst Name Role Phone Mau Terry MD Primary Care Provider [phone] Encounter Details Date Type Department Care Team (Latest Contact Info) Description 10/05/2000 Outpatient Historical [facility] Ear, Nose and Throat [address] [place] [address] 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
--- OUTSIDE RECORDS SUMMARY | 2024-10-30 19:57 | XMS_ITS | Encounter Summary ---
Author Organization [facility] Address [address] [place] [address] Care Team Providers Care Environmental Engineer Name Role Phone Mau Terry MD Primary Care Provider Encounter Details Date Type Department Care Team (Latest Contact Info) Description 07/11/2001 Outpatient Historical [facility] Ruddy Calloway, Jonh Howell MD [address] [place] [phone] ACTINIC KERATOSIS (Primary Dx) Social History Tobacco [...] Primary documented in this encounter Care Teams Environmental Engineer Relationship Specialty Start Date End Date Mau Terry MD [address] [place] [phone] PCP - General 02/28/06 07/12/14 documented as of this encounter
--- OUTSIDE RECORDS SUMMARY | 2024-10-30 19:57 | XMS_ITS | Encounter Summary ---
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); Follow-up examination, following unspecified surgery Social History Tobacco Use Types Packs/Day Years Used Date Smoking Tobacco: Never Assessed Comments Unknown Sex and Gender Information Value Date Recorded Sex Assigned at Not on file Legal Sex Female 3:01 AM WHIPPER BEATER Gender Identity Not on file Sexual Orientation Not on file documented as of this encounter Plan of Treatment Not on file documented as of this encounter Visit Diagnoses Diagnosis Other and unspecified malignant neoplasm of skin of other and unspecified parts of face- Primary Follow-up examination, following unspecified surgery documented in this encounter Care Teams Solidworks Mechanical Designer Relationship Specialty Start Date End Date Mau Terry MD [address] [place] [phone] PCP - General 02/28/06 07/12/14 documented as of this encounter
--- OUTSIDE RECORDS SUMMARY | 2024-10-30 19:58 | XMS_ITS | Encounter Summary ---
Author Organization [facility] Address [address] [place] [address] Care Team Providers Care Operator Electronic Warfare Name Role Phone Mau Terry MD Primary Care Provider [phone] Encounter Details Date Type Department Care Team (Latest Contact Info) Description 01/15/2002 Outpatient Historical [facility] Ear, Nose and Throat [address] [place] [address] [place] [address] Tenzin Vaughn C [address] [place] [address] CONDUCT HEARING LOSS NOS (Primary Dx); CHRONIC MASTOIDITIS Social History Tobacco Use Types Packs/Day Years Used Date Smoking Tobacco: Never Assessed Comments Unknown Sex and Gender Information Value Date Recorded Sex Assigned at Not on file Legal Sex Female 3:01 AM ASSOCIATE PROFESSOR OF VIOLIN Gender Identity Not on file Sexual Orientation Not on file documented as of this encounter Plan of Treatment Not on file documented as of this encounter Visit Diagnoses Diagnosis Unspecified conductive hearing loss- Primary Chronic mastoiditis documented in this encounter Care Teams Operator Electronic Warfare Relationship Specialty Start Date End Date Mau Terry MD [address] [place] [phone] PCP - General 02/28/06 07/12/14 documented as of this encounter
--- OUTSIDE RECORDS SUMMARY | 2024-10-30 19:58 | XMS_ITS | Encounter Summary ---
Author Organization [facility] Address [address] [facility] Attn: [place] [address] Care Team Providers Care Ballistics Professor Name Role Phone Mau Terry MD Primary Care Provider [phone] Encounter Details Date Type Department Care Team (Late st Contact Info) Description 02/13/2002 Outpatient Historical Tenzin Vaughn [address] [place] [address] Social History Tobacco Use Types Packs/Day Years Used Date Smoking Tobacco: Never Assessed Comments Unknown Sex and Gender Information Value Date Recorded Sex Assigned at Not on file Legal Sex Female 3:01 AM CLAIMS CONFIGURATION ANALYST Gender Identity Not on file Sexual Orientation Not on file documented as of this encounter Plan of Treatment Not on file documented as of this encounter Visit Diagnoses Not on filedocumented in this encounter Care Teams Ballistics Professor Relationship Specialty Start Date End Date Mau Terry MD [address] [place] [phone] PCP - General 02/28/06 07/12/14 documented as of this encounter
--- OUTSIDE RECORDS SUMMARY | 2024-10-30 19:58 | XMS_ITS | Encounter Summary ---
Author Organization [facility] Address [address] [place] [address] Care Team Providers Care Special Distribution Clerk Name Role Phone Mau Terry MD Primary Care Provider [phone] Encounter Details Date Type Department Care Team (Latest Contact Info) Description 05/14/[address] [facility] Ear, Nose and Throat [address] [place] [address] [place] [address] Anselmo Lopez MD [address] [address] CONDUCT HEARING LOSS NOS (Primary Dx) Social History Tobacco Use Types Packs/Day Years Used Date Smoking Tobacco: Never Assessed Comments Unknown Sex and Gender Information Value Date Recorded Sex Assigned at Not on file Legal Sex Female 3:01 AM ENTRY LEVEL WEB DEVELOPER Gender Identity Not on file Sexual Orientation Not on file documented as of this encounter Plan of Treatment Not on file documented as of this encounter Visit Diagnoses Diagnosis Unspecified conductive hearing loss- Primary documented in this encounter Care Teams Special Distribution Clerk Relationship Specialty Start Date End Date Mau Terry MD [address] [place] [phone] PCP - General 02/28/06 07/12/14 documented as of this encounter
--- OUTSIDE RECORDS SUMMARY | 2024-10-30 19:58 | XMS_ITS | Encounter Summary ---
Author Organization [facility] Address [address] [place] [address] Care Team Providers Care Calculus Tutor Name Role Phone Mau Terry MD Primary Care Provider [phone] Encounter Details Date Type Department Care Team (Latest Contact Info) Description 02/13/2002 Outpatient Historical [facility] Head and Neck Surgery-[address] [place] [address] [place] [phone] Tenzin Vaughn [address] [place], [place] [phone] CHRONIC MASTOIDITIS (Primary Dx); MALFUNC OTHER DEVICE/GRAFT Social History Tobacco Use Types Packs/Day Years Used Date Smoking Tobacco: Never Assessed Comments Unknown Sex and Gender Information Value Date Recorded Sex Assigned at Not on file Legal Sex Female 3:01 AM DEMOLITION HAMMER OPERATOR Gender Identity Not on file Sexual Orientation Not on file documented as of this encounter Plan of Treatment Not on file documented as of this encounter Visit Diagnoses Diagnosis Chronic mastoiditis- Primary Mechanical complication due to other implant and internal device, not elsewhere classified documented in this encounter Care Teams Calculus Tutor Relationship Specialty Start Date End Date Mau Terry MD [address] [place] [phone] PCP - General 02/28/06 07/12/14 documented as of this encounter
--- OUTSIDE RECORDS SUMMARY | 2024-10-30 19:58 | XMS_ITS | Patient Health Record ---
Author Organization [facility] Address [address] [place], [place] [id number] Care Team Providers Care Aquaculturist Name Role Phone Kevin GUADALUPE, Godfrey Primary Care Provider Coy Rodriguez MD, [facility] [phone] Allergies Allergen (clinical drug ingredient) Drug/Non Drug [...] W/U Status Risk Notes Problem Solitary sacroiliitis (902196516) Sacroiliitis, not elsewhere classified (M46.1) Active confirmed Problem Low back pain (539903984) Low back pain (M54.5) Active confirmed Problem Lumbosacral spondylosis without myelopathy (56027094) Spondylosis without myelopathy or radiculopathy, lumbar region (M47.816) Active confirmed Problem High risk drug monitoring status (221565999) watermelon inspector (current) use of opiate analgesic (Z79.891) Active confirmed Problem Anxiety disorder (196944255) Other specified anxiety disorders (F41.8) Active confirmed Problem Hypersomnia (84221913) Hypersomnia, unspecified (G47.10) Active confirmed Problem Acquired spondylolisthesis (955320556) Spondylolisthesis , lumbar region (M43.16) Active confirmed Problem Spinal stenosis of lumbar region (46441533) Spinal stenosis, lumbar region (M48.06) Active confirmed Problem Radiculopathy due to lumbar intervertebral disc disorder (092621541485041) Intervertebral disc disorders with radiculopathy, lumbar region (M51.16) Active confirmed Problem Pain in left leg (007981366) Pain in left leg (M79.605) Active confirmed Problem Long-term current use of drug therapy (728198653) Other detention (current) drug therapy (Z79.899) Active confirmed Problem Neurogenic claudication (859311474) Spinal stenosis, lumbar region with neurogenic claudication (M48.062) Active confirmed Plan Of Treatment No Information Insurance Providers Payer Name Payer Address Payer Phone Subscriber Number Group Number Insured Name Patient Relationship to Insured Coverage Start Date Coverage End Date [facility] [address] [place] [address] [id number] Sandra Lemus Self - patient is the [...] thrown from horse, 2003 UTI, treated at [facility], 04/2017
--- OUTSIDE RECORDS SUMMARY | 2024-10-30 19:58 | XMS_ITS | Encounter Summary ---
Author Organization [facility] Address [address] [place] [address] Care Team Providers Care Refining Still Operator Name Role Phone Mau Terry MD Primary Care Provider [phone] Encounter Details Date Type Department Care Team (Latest Contact Info) Description 02/27/2002 Outpatient Historical [facility] Ear, Nose and Throat [address] [place] [address] [place] [address] Tenzin Vaughn C [address] [place], [place] [phone] CHR NONSUP OM NOS/NEC (Primary Dx); PERFORAT TYMPAN MEMB NOS Social History Tobacco Use Types Packs/Day Years Used Date Smoking Tobacco: Never Assessed Comments Unknown Sex and Gender Information Value Date Recorded Sex Assigned at Not on file Legal Sex Female 3:01 AM SWITCHBOARD OPERATOR SUPERVISOR Gender Identity Not on file Sexual Orientation Not on file documented as of this encounter Plan of Treatment Not on file documented as of this encounter Visit Diagnoses Diagnosis Other and unspecified chronic nonsuppurative otitis media- Primary Perforation of tympanic membrane, unspecified documented in this encounter Care Teams Refining Still Operator Relationship Specialty Start Date End Date Mau Terry MD [address] [place] [phone] PCP - General 02/28/06 07/12/14 documented as of this encounter
--- OUTSIDE RECORDS SUMMARY | 2024-10-30 19:58 | XMS_ITS | Encounter Summary ---
Author Organization [facility] Address [address] [place] [address] Care Team Providers Care Back End Developer Name Role Phone Mau Terry MD Primary Care Provider [phone] Encounter Details Date Type Department Care Team (Latest Contact Info) Description 04/04/2002 Outpatient Historical [facility] Ear, Nose and Throat [address] [place] [address] [place] [address] [place] [address] Jc Barth MD NO ADDRESS ON FILE IMPACTED CERUMEN (Primary Dx); CONDUCT HEARING LOSS NOS Social History Tobacco Use Types Packs/Day Years Used Date Smoking Tobacco: Never Assessed Comments Unknown Sex and Gender Information Value Date Recorded Sex Assigned at Not on file Legal Sex Female 3:01 AM CLAIMS CUSTOMER SERVICE REPRESENTATIVE Gender Identity Not on file Sexual Orientation Not on file documented as of this encounter Plan of Treatment Not on file documented as of this encounter Visit Diagnoses Diagnosis Impacted cerumen- Primary Unspecified conductive hearing loss documented in this encounter Care Teams Back End Developer Relationship Specialty Start Date End Date Mau Terry MD [address] [place] [phone] PCP - General 02/28/06 07/12/14 documented as of this encounter
--- OUTSIDE RECORDS SUMMARY | 2024-10-30 19:58 | XMS_ITS | Encounter Summary ---
Author Organization [facility] Address [address] [place] [address] Care Team Providers Care Caseworker Name Role Phone Mau Terry MD Primary Care Provider [phone] Encounter Details Date Type Department Care Team (Latest Contact Info) Description 02/12/2002 Outpatient Historical [facility] Ear, Nose and Throat [address] [place] [address] [place] [address] Tenzin Vaughn [address] [place] [address] CONDUCT HEARING LOSS NOS (Primary Dx); CHRONIC MASTOIDITIS; PERFORAT TYMPAN MEMB NOS Social History Tobacco Use Types Packs/Day Years Used Date Smoking Tobacco: Never Assessed Comments Unknown Sex and Gender Information Value Date Recorded Sex Assigned at Not on file Legal Sex Female 3:01 AM MEDICATION RECONCILIATION TECHNICIAN Gender Identity Not on file Sexual Orientation Not on file documented as of this encounter Plan of Treatment Not on file documented as of this encounter Visit Diagnoses Diagnosis Unspecified conductive hearing loss- Primary Chronic mastoiditis Perforation of tympanic membrane, unspecified documented in this encounter Care Teams Caseworker Relationship Specialty Start Date End Date Mau Terry MD [address] [place] [phone] PCP - General 02/28/06 07/12/14 documented as of this encounter
--- OUTSIDE RECORDS SUMMARY | 2024-10-30 19:58 | XMS_ITS | Encounter Summary ---
Author Organization [facility] Address [address] [place] [address] Care Team Providers Care Wood Pile Driver Operator Name Role Phone Mau Terry MD Primary Care Provider [phone] Encounter Details Date Type Department Care Team (Latest Contact Info) Description 02/13/2002 Outpatient Historical [facility] Ear, Nose and Throat [address] [place] [address] [place] [address] Tenzin Vaughn [address] [place] [address] CHRONIC MASTOIDITIS (Primary Dx); MALFUNC OTHER DEVICE/GRAFT Social History Tobacco Use Types Packs/Day Years Used Date Smoking Tobacco: Never Assessed Comments Unknown Sex and Gender Information Value Date Recorded Sex Assigned at Not on file Legal Sex Female 3:01 AM TACTICAL DECEPTION PLANS OFFICER Gender Identity Not on file Sexual Orientation Not on file documented as of this encounter Plan of Treatment Not on file documented as of this encounter Visit Diagnoses Diagnosis Chronic mastoiditis- Primary Mechanical complication due to other implant and internal device, not elsewhere classified documented in this encounter Care Teams Wood Pile Driver Operator Relationship Specialty Start Date End Date Mau Terry MD [address] [place] [phone] PCP - General 02/28/06 07/12/14 documented as of this encounter
--- NOTE | 2024-10-30 20:07 | XRR_ITS ---
PROCEDURE INFORMATION: Exam: XR Chest Exam date and time: 10/30/2024 8:22 PM Age: 69 years old Clinical indication: Dyspnea TECHNIQUE: Imaging protocol: Radiologic exam of the chest. Views: 1 view. COMPARISON: CR XR chest 1V portable [id number] 10/21/2024 3:39 PM FINDINGS: Lungs: Bibasilar atelectasis versus infiltrate. Pleural spaces: Small bilateral pleural effusions. Heart/Mediastinum: Cardiomegaly mild pulmonary vascular congestion. Bones/joints: Unremarkable. XR/XR chest 1V portable [id number] IMPRESSION: 1. Small bilateral pleural effusions. 2. Cardiomegaly mild pulmonary vascular congestion. 3. Bibasilar atelectasis versus infiltrate.
--- NOTE | 2024-10-30 20:13 | ECG_ITS ---
[facility]30 Pat Name: Sandra Lemus Department: Room: Gender: Female Nursing Program Director: : 1955 Requested By: Jennie Goncalves Order Number: [id number] Jhon MD: Becca Navarro M.D. Measurements Intervals [place] Rate: 65 P: 46 KS: 252 QRS: 50 QRSD: 106 T: 0 QT: 421 QTc: 440 Interpretive Statements SINUS RHYTHM WITH FIRST DEGREE AV BLOCK ANTEROSEPTAL MYOCARDIAL INFARCTION , OF INDETERMINATE AGE [40+ ms Q WAVE IN V1-V4] Compared to ECG 10/18/2024 18:15:30 Left ventricular hypertrophy no longer present ST (T wave) deviation no longer present Myocardial infarct finding still present Electronically Signed On 10-31-2024 15:20:26 CDT by Becca Navarro M.D. [email or web address]
[2024-10-30] MEDS: FUROsemide 10 mg/mL SDV 10mL 80 MG IVP (20:27)
--- NOTE | 2024-10-30 20:32 | W.ED.SOB ---
Documented by User: YAMILET Austin 10/31/24 00:38 HPI - SOB/Dyspnea General: Chief Complaint: Shortness of Breath/Dyspnea Stated Complaint: CHF, SOB Time Seen by Provider: 10/30/24 19:53 History of Present Illness: HPI Narrative: Patient is a 69-year-old female with history of CAD, HTN, DM, presented to ED with increasing shortness of breath and lower extremity edema. Patient was just discharged here on 10/30 after LHC with PCI as noted below. Patient stated she did not follow the sodium diet. She is at the intermediate during rehab, and is compliant to her medications. She states she has increasing shortness of breath, and a chest heaviness. She does have a nonproductive cough without fever. No sick contacts. 10/27/2024: Left heart cath was performed: Left main is normal LAD has luminal irregularities with the proximal 40% stenosis Left circumflex has high-grade 90% proximal stenosis Left ramus intermedius has proximal 90% stenosis RCA is dominant vessel without significant stenosis Left ventricular end-diastolic pressure 35 mmHg Due to highly torturous aorta GuideLiner was used to seat the guide well along with AL-1 guide Excellent angiographic result with REMY-3 flow was achieved 2 overlapping stents were placed in proximal left circumflex and 1 stent was placed in the ramus intermedius both were postdilated with noncompliant balloon. Associated symptoms: Deny abdominal pain, fever(s), nausea, polydipsia, polyuria or vomiting Related Data Home Medications ?Medication ?Instructions ?Recorded ?Confirmed Marine Phytoplankton 250 mg PO DAILY 10/04/22 10/17/24 vitamins A,C,I-gyrb-lkvmae 4,296 1 cap PO BID 06/19/23 10/17/24 mcg-226 mg-90 mg capsule (PreserVision AREDS) gabapentin 100 mg capsule 100 mg PO BID PRN nerve pain 08/05/24 10/17/24 magnesium 250 mg tablet 250 mg PO DAILY 08/05/24 10/17/24 irbesartan 150 mg tablet 150 mg PO DAILY 10/17/24 10/17/24 Held on 10/28/24. Instructions: Resume on 11/11/24. Previous Rx's ?Medication ?Instructions ?Recorded semaglutide 2 mg/dose (8 mg/3 mL) 2 mg (0.75 mL) SUBCUT .weekly #3 mL 05/31/23 subcutaneous pen injector (Ozempic) Held on 10/28/24. Instructions: Resume on 11/11/24. albuterol sulfate 90 mcg/actuation 2 puff inhalation Q6H PRN 02/13/24 aerosol inhaler (Ventolin HFA) shortness of breath or wheezing #8.5 grams galantamine 4 mg tablet 4 mg PO BID #60 tabs 05/20/24 rollaid walker with seat #1 ea 08/05/24 bumetanide 1 mg tablet 1 mg PO BID #100 tabs 09/01/24 ezetimibe 10 mg tablet 10 mg PO DAILY #90 tabs 09/01/24 omeprazole 40 mg capsule,delayed 40 mg PO BID #120 caps 10/15/24 release ondansetron 4 mg disintegrating 4 mg PO Q6H PRN nausea and 10/15/24 tablet vomiting #60 tabs amlodipine 5 mg tablet 5 mg PO DAILY #30 tabs 10/28/24 apixaban 5 mg tablet (Eliquis) 5 mg PO BID #90 tabs 10/28/24 clopidogrel 75 mg tablet 75 mg PO DAILY #90 tabs 10/28/24 insulin degludec 200 unit/mL (3 22 unit (0.11 mL) SUBCUT DAILY #9 10/28/24 mL) subcutaneous pen (Tresiba mL FlexTouch U-200 insulin) isosorbide mononitrate 30 mg 30 mg PO DAILY #30 tabs 10/28/24 tablet,extended release 24 hr metoprolol tartrate 50 mg tablet 50 mg PO BID@0900,2100 #60 tabs 10/28/24 nitroglycerin 0.4 mg sublingual 0.4 mg sublingual Q5M PRN Chest 10/28/24 tablet Pain #25 tabs Allergies Allergy/AdvReac Type Severity Reaction Status Date / Time sitagliptin (From ) Allergy Unknown Unknown Verified 10/15/24 14:55 empagliflozin (From Allergy Unknown Verified 10/15/24 14:55 Jardiance) Review of Systems General: Reports: 10 or more systems reviewed and unremarkable except in HPI and below Const: Denies: fever(s) or chills Eyes: Denies: change in vision or blurry vision ENMT: Denies: throat pain or nasal obstruction Resp: Reports: dyspnea and non-productive cough; Denies: productive cough GI: Denies: abdominal pain, nausea, vomiting or change in bowel habits : Denies: flank pain or difficulty voiding Musc: Denies: neck pain or back pain Skin/Breast: Denies: rash or pruritus Neuro: Denies: headache(s) or numbness in extremities Psych: Denies: anxiety or depression Endo: Denies: polyuria or polydipsia All/Imm: Denies: urticaria or throat swelling PFSH ED PFSH: Medical History (Updated 10/31/24 @ 00:04 by YAMILET Austin) CKD (chronic kidney disease), stage IV CKD stage 3b, GFR 30-44 ml/min Diabetic nephropathy Squamous cell carcinoma of skin Nephrolithiasis History of ovarian cancer Chronic back pain Stage 3a chronic kidney disease (CKD) HLD (hyperlipidemia) Insulin dependent diabetes mellitus Essential hypertension Obesity Surgical History (Updated 10/29/24 @ 00:00 by ELLEN Gold) History of carpal tunnel release History of decompression of ulnar nerve H/O: hysterectomy Social History Smoking and tobacco/nicotine status: never used tobacco/nicotine Second hand smoke exposure: No Alcohol intake: current Alcohol intake frequency: few times a month Substance/Drug Use: never Additional social history: She wants full code as discussed with Tenzin and myself 10/17/2024 by Derian Hsieh MD Caregiver/support person: No Lives independently: No Household members: spouse Marital status: Number of children: 1 service: No Current occupational status: unemployed Current occupational exposures/hazards: No 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 Pets and animals: No Do you think of yourself as: Straight/Heterosexual Current gender identity: Female Physical Exam Const: COMMON NORMALS: no acute distress, average body habitus and patient oriented x3 HENMT: COMMON NORMALS: normocephalic and atraumatic HEAD & SCALP: normocephalic and atraumatic Neck/C-Spine: COMMON NORMALS: full ROM GENERAL: Yes JVD Lymph: LYMPHATIC: no lymphadenopathy noted Chest: COMMONS NORMALS: normal inspection of the chest and normal palpation of entire chest wall Resp: AUSCULTATION: crackles Laterality: bilateral and posterior Cardio: COMMON NORMALS: regular rate and regular rhythm RATE: regular rate RHYTHM: regular rhythm GI: COMMON NORMALS: Normal to inspection, nondistended, normoactive bowel sounds present, Soft to palpation and non-tender PALPATION: Yes Soft to palpation : COMMON NORMALS: Yes no CVA tenderness BLADDER/KIDNEY EXAM: Yes no CVA tenderness Back/Pelvis: COMMON NORMALS: no CVA tenderness Extremity: COMMON NORMALS: normal to inspection, full ROM and capillary refill normal Neuro: COMMON NORMALS: patient oriented x3 Psych: COMMON NORMALS: mental status grossly normal and Normal thought process present THOUGHT PROCESS: Normal thought process present Course Consultations: Consultation #1: Dr. Ruiz accepted for ICU. Awaiting nephrology Consultation #2: d/w nephrology-80 mg lasix bid Vital Signs: Vital signs: Vital Signs Temperature 97.7 F 10/30/24 19:55 Pulse Rate 70 10/31/24 00:00 Respiratory Rate 16 10/30/24 23:30 Blood Pressure 157/92 10/31/24 00:00 Pulse Oximetry 91 10/31/24 00:00 Oxygen Delivery Me thod Nasal Cannula 10/30/24 20:32 Oxygen Flow Rate 3 10/30/24 20:32 MDM - SOB/Dyspnea Differential Diagnosis Likely acute exacerbation of chronic obstructive airways disease and congestive heart failure Medical Records I reviewed the patient's medical records. Lab Data I reviewed the patient's lab results. 10/30/24 19:20 10/30/24 19:20 Labs/Radiology: Radiology Impressions Chest X-Ray 10/30/24 20:07 IMPRESSION: 1. Small bilateral pleural effusions. 2. Cardiomegaly mild pulmonary vascular congestion. 3. Bibasilar atelectasis versus infiltrate. Abdomen/Pelvis CT 10/30/24 21:38 IMPRESSION: 1. Heterogeneity of the kidneys with apparent retained contrast, likely related to provided history of acute renal failure. Perinephric edema is also present, please correlate for pyelonephritis. 2. Right kidney punctate benign parenchymal calcifications. 3. Moderate bilateral pleural effusions. 4. Cardiomegaly. 5. Coronary artery atherosclerotic calcification. 6. Bilateral dependent airspace infiltrates. 7. Anasarca. 8. Cholecystectomy. 9. Vazquez catheter in the urinary bladder with air presumed iatrogenic. Chest CT 10/30/24 21:52 IMPRESSION: 1. Moderate bilateral pleural effusions. 2. Bilateral dependent atelectasis versus infiltrate. 3. Coronary artery atherosclerotic calcifications. 4. Cardiomegaly. 5. Mild anasarca. Laboratory Results WBC 18.49 10^3/uL (3.29-11.43) H 10/30/24 19:20 RBC 3.63 10^6/uL (3.85-5.65) L 10/30/24 19:20 Hgb 10.50 g/dL (11.27-16.99) L 10/30/24 19:20 Hct 33.2 % (36-47) L 10/30/24 19:20 MCV 91.5 fl (85-98) 10/30/24 19:20 MCH 28.9 pg (27-33) 10/30/24 19:20 MCHC 31.6 g/dL (30-55) 10/30/24 19:20 RDW 13.7 % (12.1-15.1) 10/30/24 19:20 Plt Count 338 10^3/cmm (157-399) 10/30/24 19:20 MPV 11.4 fL (7.4-10.4) H 10/30/24 19:20 Neut % (Auto) 84.5 % 10/30/24 19:20 Lymph % (Auto) 7.1 % 10/30/24 19:20 [place] % (Auto) 4.9 % 10/30/24 19:20 Eos % (Auto) 1.7 % 10/30/24 19:20 Baso % (Auto) 0.5 % 10/30/24 19:20 Neut # (Auto) 15.62 10^3/uL (1.8-7.7) H 10/30/24 19:20 Lymph # (Auto) 1.3 10^3/uL (0.8-4.8) 10/30/24 19:20 [place] # (Auto) 0.9 10^3/uL (0.2-0.9) 10/30/24 19:20 Eos # (Auto) 0.3 10^3/uL (0.0-0.8) 10/30/24 19:20 Baso # (Auto) 0.1 10^3/uL (0.0-0.1) 10/30/24 19:20 Nucleated RBC % (auto) 0 % 10/30/24 19:20 Nucleated RBCs # 0.0 /100WBC 10/30/24 19:20 Sodium 134 mmol/L (136-145) L 10/30/24 19:20 Potassium 5.7 mmol/L (3.5-5.1) H 10/30/24 19:20 Chloride 100 mmol/L (98-107) 10/30/24 19:20 Carbon Dioxide 20 mmol/L (22-29) L 10/30/24 19:20 Anion Gap 19.7 (5-19) H 10/30/24 19:20 BUN 69 mg/dL (8-23) H 10/30/24 19:20 Creatinine 6.0 mg/dL (0.5-0.9) H* 10/30/24 19:20 GFR Calculation 7.0 mL/min (90-130) L 10/30/24 19:20 Glucose 338 mg/dL (65-115) H 10/30/24 19:20 POC Glucose 394 mg/dL (70-110) H 10/30/24 23:04 Calculated Osmolality 311 mOsm/kg (285-295) H 10/30/24 19:20 Calcium 8.8 mg/dL (8.5-10.5) 10/30/24 19:20 Total Bilirubin 0.2 mg/dL (0.15-1.2) 10/30/24 19:20 AST 10 U/L (0-32) 10/30/24 19:20 ALT 17 U/L (0-33) 10/30/24 19:20 Alkaline Phosphatase 147 U/L (35-105) H 10/30/24 19:20 Troponin T Baseline 72 ng/L (0-10) H 10/30/24 19:20 Troponin T 120 Minute 69.31 ng/L (0-10) H 10/30/24 21:14 Delta Troponin T -2.69 ABS# (0-10) L 10/30/24 21:14 NT-Pro-B Natriuret Pep 63476 pg/mL (0-125) H 10/30/24 19:20 Total Protein 6.5 g/dL (6.6-8.7) L 10/30/24 19:20 Albumin 3.2 g/dL (3.5-5.2) L 10/30/24 19:20 Globulin 3.3 g/dL (1.3-4.6) 10/30/24 19:20 Procalcitonin 0.17 ng/mL (0-0.5) 10/30/24 21:14 Urine Color Yellow (Yellow) 10/30/24 21:30 Urine Appearance Turbid (CLEAR) A 10/30/24 21: Urine pH 6.0 (5-7) 10/30/24 21: Ur Specific [place] 1.025 (1.005-1.030) 10/30/24 21:30 Urine Protein 4+ (Negative) A 10/30/24 21: Urine Glucose (UA) 3+ (Normal) H 10/30/24 21: Urine Ketones Negative (Negative) 10/30/24 21: Urine Blood 2+ (Negative) A 10/30/24 21: Urine Nitrate Negative (Negative) 10/30/24 21: Urine Bilirubin Negative (Negative) 10/30/24 21: Urine Urobilinogen 0.2 mg/dL (Negative) 10/30/24 21:30 Ur Leukocyte Esterase 2+ (Negative) A 10/30/24 21: Urine RBC 21-50 /hpf (0-2) H 10/30/24 21:30 Urine WBC >100 /hpf (0-5) H 10/30/24 21:30 Ur Squamous Epith Cells 5-10 /hpf (0-5) H 10/30/24 21:30 Amorphous Sediment Not Reportable 10/30/24 21:30 Urine Bacteria None seen /hpf (NONE) 10/30/24 21: Hyaline Casts 6.61 /lpf 10/30/24 21:30 Urine Yeast 2+ /hpf H 10/30/24 21:30 U Random Total Protein 1067 mg/dL 10/30/24 21:30 EKG Data EKG 1: Interpretation: First-degree, sinus rhythm, normal axis, no ST segment elevation, QTc 433 Computer Generated Interpretation: First-degree block EKG 2: Interpretation: Sinus rhythm with first-degree AV block Discharge Plan Discharge Patient Disposition: Admitted As Inpatient Clinical Impression: Acute renal failure (ARF), Pyuria, Acute hyperkalemia, Hyperglycemia, Pneumonia, Acute systolic (congestive) heart failure Condition: Stable Discharge Diet: Low Salt Discharge Activity: Increase activity as tolerated Coding Level of Care Code ED Motor Vehicle Emissions Inspector for Michaelleg Fwd Documented by User: Tru Vega DO 10/30/24 23:49 HPI - SOB/Dyspnea General: Chief Complaint: Shortness of Breath/Dyspnea Stated Complaint: CHF, SOB Time Seen by Provider: 10/30/24 19:53 Related Data Home Medications ?Medication ?Instructions ?Recorded ?Confirmed Marine Phytoplankton 250 mg PO DAILY 10/04/22 10/17/24 vitamins A,C,D-zvwe-rjaeez 4,296 1 cap PO BID 06/19/23 10/17/24 mcg-226 mg-90 mg capsule (PreserVision AREDS) gabapentin 100 mg capsule 100 mg PO BID PRN nerve pain 08/05/24 10/17/24 magnesium 250 mg tablet 250 mg PO DAILY 08/05/24 10/17/24 irbesartan 150 mg tablet 150 mg PO DAILY 10/17/24 10/17/24 Held on 10/28/24. Instructions: Resume on 11/11/24. Previous Rx's ?Medication ?Instructions ?Recorded semaglutide 2 mg/dose (8 mg/3 mL) 2 mg (0.75 mL) SUBCUT .weekly #3 mL 05/31/23 subcutaneous pen injector (Ozempic) Held on 10/28/24. Instructions: Resume on 11/11/24. albuterol sulfate 90 mcg/actuation 2 puff inhalation Q6H PRN 02/13/24 aerosol inhaler (Ventolin HFA) shortness of breath or wheezing #8.5 grams galantamine 4 mg tablet 4 mg PO BID #60 tabs 05/20/24 rollaid walker with seat #1 ea 08/05/24 bumetanide 1 mg tablet 1 mg PO BID #100 tabs 09/01/24 ezetimibe 10 mg tablet 10 mg PO DAILY #90 tabs 09/01/24 omeprazole 40 mg capsule,delayed 40 mg PO BID #120 caps 10/15/24 release ondansetron 4 mg disintegrating 4 mg PO Q6H PRN nausea and 10/15/24 tablet vomiting #60 tabs amlodipine 5 mg tablet 5 mg PO DAILY #30 tabs 10/28/24 apixaban 5 mg tablet (Eliquis) 5 mg PO BID #90 tabs 10/28/24 clopidogrel 75 mg tablet 75 mg PO DAILY #90 tabs 10/28/24 insulin degludec 200 unit/mL (3 22 unit (0.11 mL) SUBCUT DAILY #9 10/28/24 mL) subcutaneous pen (Tresiba mL FlexTouch U-200 insulin) isosorbide mononitrate 30 mg 30 mg PO DAILY #30 tabs 10/28/24 tablet,extended release 24 hr metoprolol tartrate 50 mg tablet 50 mg PO BID@0900,2100 #60 tabs 10/28/24 nitroglycerin 0.4 mg sublingual 0.4 mg sublingual Q5M PRN Chest 10/28/24 tablet Pain #25 tabs Allergies Allergy/AdvReac Type Severity Reaction Status Date / Time sitagliptin (From Januvia) Allergy Unknown Unknown Verified 10/15/24 14:55 empagliflozin (From Allergy Unknown Verified 10/15/24 14:55 Jardiance) PFSH ED PFSH: Medical History (Updated 10/31/24 @ 00:04 by YAMILET Austin) CKD (chronic kidney disease), stage IV CKD stage 3b, GFR 30-44 ml/min Diabetic nephropathy Squamous cell carcinoma of skin Nephrolithiasis History of ovarian cancer Chronic back pain Stage 3a chronic kidney disease (CKD) HLD (hyperlipidemia) Insulin dependent diabetes mellitus Essential hypertension Obesity Surgical History (Updated 10/29/24 @ 00:00 by ELLEN Gold) History of carpal tunnel release History of decompression of ulnar nerve H/O: hysterectomy Social History Smoking and tobacco/nicotine status: never used tobacco/nicotine Second hand smoke exposure: No Alcohol intake: current Alcohol intake frequency: few times a month Substance/Drug Use: never Additional social history: She wants full code as discussed with Tenzin and myself 10/17/2024 by Derian Hsieh MD Caregiver/support person: No Lives independently: No Household members: spouse Marital status: Number of children: 1 service: No Current occupational status: unemployed Current occupational exposures/hazards: No 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 Lab Data 10/30/24 19:20 10/30/24 19:20 Labs/Radiology: Radiology Impressions Chest X-Ray 10/30/24 20:07 IMPRESSION: 1. Small bilateral pleural effusions. 2. Cardiomegaly mild pulmonary vascular congestion. 3. Bibasilar atelectasis versus infiltrate. Abdomen/Pelvis CT 10/30/24 21:38 IMPRESSION: 1. Heterogeneity of the kidneys with apparent retained contrast, likely related to provided history of acute renal failure. Perinephric edema is also present, please correlate for pyelonephritis. 2. Right kidney punctate benign parenchymal calcifications. 3. Moderate bilateral pleural effusions. 4. Cardiomegaly. 5. Coronary artery atherosclerotic calcification. 6. Bilateral dependent airspace infiltrates. 7. Anasarca. 8. Cholecystectomy. 9. Vazquez catheter in the urinary bladder with air presumed iatrogenic. Chest CT 10/30/24 21:52 IMPRESSION: 1. Moderate bilateral pleural effusions. 2. Bilateral dependent atelectasis versus infiltrate. 3. Coronary artery atherosclerotic calcifications. 4. Cardiomegaly. 5. Mild anasarca. Laboratory Results WBC 18.49 10^3/uL (3.29-11.43) H 10/30/24 19:20 RBC 3.63 10^6/uL (3.85-5.65) L 10/30/24 19:20 Hgb 10.50 g/dL (11.27-16.99) L 10/30/24 19:20 Hct 33.2 % (36-47) L 10/30/24 19:20 MCV 91.5 fl (85-98) 10/30/24 19:20 MCH 28.9 pg (27-33) 10/30/24 19:20 MCHC 31.6 g/dL (30-55) 10/30/24 19:20 RDW 13.7 % (12.1-15.1) 10/30/24 19:20 Plt Count 338 10^3/cmm (157-399) 10/30/24 19:20 MPV 11.4 fL (7.4-10.4) H 10/30/24 19:20 Neut % (Auto) 84.5 % 10/30/24 19:20 Lymph % (Auto) 7.1 % 10/30/24 19:20 [place] % (Auto) 4.9 % 10/30/24 19:20 Eos % (Auto) 1.7 % 10/30/24 19:20 Baso % (Auto) 0.5 % 10/30/24 19:20 Neut # (Auto) 15.62 10^3/uL (1.8-7.7) H 10/30/24 19:20 Lymph # (Auto) 1.3 10^3/uL (0.8-4.8) 10/30/24 19:20 [place] # (Auto) 0.9 10^3/uL (0.2-0.9) 10/30/24 19:20 Eos # (Auto) 0.3 10^3/uL (0.0-0.8) 10/30/24 19:20 Baso # (Auto) 0.1 10^3/uL (0.0-0.1) 10/30/24 19:20 Nucleated RBC % (auto) 0 % 10/30/24 19:20 Nucleated RBCs # 0.0 /100WBC 10/30/24 19:20 Sodium 134 mmol/L (136-145) L 10/30/24 19:20 Potassium 5.7 mmol/L (3.5-5.1) H 10/30/24 19:20 Chloride 100 mmol/L (98-107) 10/30/24 19:20 Carbon Dioxide 20 mmol/L (22-29) L 10/30/24 19:20 Anion Gap 19.7 (5-19) H 10/30/24 19:20 BUN 69 mg/dL (8-23) H 10/30/24 19:20 Creatinine 6.0 mg/dL (0.5-0.9) H* 10/30/24 19:20 GFR Calculation 7.0 mL/min (90-130) L 10/30/24 19:20 Glucose 338 mg/dL (65-115) H 10/30/24 19:20 POC Glucose 394 mg/dL (70-110) H 10/30/24 23:04 Calculated Osmolality 311 mOsm/kg (285-295) H 10/30/24 19:20 Calcium 8.8 mg/dL (8.5-10.5) 10/30/24 19:20 Total Bilirubin 0.2 mg/dL (0.15-1.2) 10/30/24 19:20 AST 10 U/L (0-32) 10/30/24 19:20 ALT 17 U/L (0-33) 10/30/24 19:20 Alkaline Phosphatase 147 U/L (35-105) H 10/30/24 19:20 Troponin T Baseline 72 ng/L (0-10) H 10/30/24 19:20 Troponin T 120 Minute 69.31 ng/L (0-10) H 10/30/24 21:14 Delta Troponin T -2.69 ABS# (0-10) L 10/30/24 21:14 NT-Pro-B Natriuret Pep 39853 pg/mL (0-125) H 10/30/24 19:20 Total Protein 6.5 g/dL (6.6-8.7) L 10/30/24 19:20 Albumin 3.2 g/dL (3.5-5.2) L 10/30/24 19:20 Globulin 3.3 g/dL (1.3-4.6) 10/30/24 19:20 Procalcitonin 0.17 ng/mL (0-0.5) 10/30/24 21:14 Urine Color Yellow (Yellow) 10/30/24 21:30 Urine Appearance Turbid (CLEAR) A 10/30/24 21:30 Urine pH 6.0 (5-7) 10/30/24 21:30 Ur Specific [place] 1.025 (1.005-1.030) 10/30/24 21:30 Urine Protein 4+ (Negative) A 10/30/24 21: Urine Glucose (UA) 3+ (Normal) H 10/30/24 21:30 Urine Ketones Negative (Negative) 10/30/24 21:30 Urine Blood 2+ (Negative) A 10/30/24 21: Urine Nitrate Negative (Negative) 10/30/24 21: Urine Bilirubin Negative (Negative) 10/30/24 21: Urine Urobilinogen 0.2 mg/dL (Negative) 10/30/24 21:30 Ur Leukocyte Esterase 2+ (Negative) A 10/30/24 21: Urine RBC 21-50 /hpf (0-2) H 10/30/24 21:30 Urine WBC >100 /hpf (0-5) H 10/30/24 21:30 Ur Squamous Epith Cells 5-10 /hpf (0-5) H 10/30/24 21:30 Amorphous Sediment Not Reportable 10/30/24 21:30 Urine Bacteria None seen /hpf (NONE) 10/30/24 21:30 Hyaline Casts 6.61 /lpf 10/30/24 21:30 Urine Yeast 2+ /hpf H 10/30/24 21:30 U Random Total Protein 1067 mg/dL 10/30/24 21:30 XR interpretation done by ED provider, pending radiology final review Discharge Plan Discharge Patient Disposition: Admitted As Inpatient Clinical Impression: Acute renal failure (ARF), Pyuria, Acute hyperkalemia, Hyperglycemia, Pneumonia, Acute systolic (congestive) heart failure Condition: Stable Discharge Diet: Low Salt Discharge Activity: Increase activity as tolerated Coding Level of Care Code ED Motor Vehicle Emissions Inspector for Jan Mancuso
[2024-10-30 20:36] LABS: Hematocrit 33.2 % (36-47); Hemoglobin 10.50 g/dL (11.27-16.99); Mean Corpuscular HGB Conc 31.6 g/dL (30-55); Mean Corpuscular Hemoglobin 28.9 pg (27-33); Mean Corpuscular Volume 91.5 fl (85-98); Nucleated Red Blood Cells % 0 %; Platelet Count 338 10^3/cmm (157-399); Red Blood Count 3.63 10^6/uL (3.85-5.65); Troponin(5th) Baseline 72 ng/L (0-10); White Blood Count 18.49 10^3/uL (3.29-11.43)
[2024-10-30 20:46] LABS: Alanine Aminotransferase 17 U/L (0-33); Albumin Level 3.2 g/dL (3.5-5.2); Alkaline Phosphatase 147 U/L (35-105); Anion Gap 19.7 (5-19); Aspartate Amino Transferase 10 U/L (0-32); Blood Urea Nitrogen 69 mg/dL (8-23); Calcium 8.8 mg/dL (8.5-10.5); Carbon Dioxide 20 mmol/L (22-29); Chloride 100 mmol/L (98-107); Creatinine Clr Calc Pharmacy 9.4674; Globulin 3.3 g/dL (1.3-4.6); Glucose 338 mg/dL (65-115); NT Pro B Type Natriuretic Pept 33708 pg/mL (0-125); Osmolality Calculated 311 mOsm/kg (285-295); Potassium 5.7 mmol/L (3.5-5.1); Sodium 134 mmol/L (136-145); Total Protein 6.5 g/dL (6.6-8.7)
[2024-10-30 21:36] LABS: Glucose Urine UA 3+ (Normal); Nitrate Urine Negative (Negative); Specific Gravity, Urine 1.025 (1.005-1.030)
--- NOTE | 2024-10-30 21:38 | CTR_ITS ---
PROCEDURE INFORMATION: Exam: CT Abdomen And Pelvis Without Contrast Exam date and time: 10/30/2024 9:48 PM Age: 69 years old Clinical indication: Other: Acute renal failure - creat 6.0; Prior surgery; Surgery date: 6+ months; Surgery type: Hysterectomy; Additional info: Arf, obstructed uropathy R/O TECHNIQUE: Imaging protocol: Computed tomography of the abdomen and pelvis without contrast. Radiation optimization: All CT scans at this facility use at least one of these dose optimization techniques: automated exposure control; mA and/or kV adjustment per patient size (includes targeted exams where dose is matched to clinical indication); or iterative reconstruction. COMPARISON: CR XR KUB portable [id number] 08/11/2024 11:34 AM RADIATION DOSE METRICS: Total DLP (mGy-cm): 1092.9 FINDINGS: Lungs: Bilateral dependent airspace infiltrates. Pleural spaces: Moderate bilateral pleural effusions. Heart: Cardiomegaly. Coronary arteries: Coronary artery atherosclerotic calcification. Liver: Normal. No mass. Gallbladder and biliary ducts: Cholecystectomy. Pancreas: Normal. No ductal dilation. Spleen: Normal. No splenomegaly. Adrenal glands: Normal. No mass. Kidneys and ureters: Heterogeneity of the kidneys with apparent retained contrast, likely related to provided history of acute renal failure. Perinephric edema is also present, please correlate for pyelonephritis. Right kidney punctate benign parenchymal calcifications. Stomach and bowel: Unremarkable. No obstruction. No mucosal thickening. Appendix: No evidence of appendicitis. Intraperitoneal space: Unremarkable. No free air. No significant fluid collection. Vasculature: Unremarkable. No abdominal aortic aneurysm. Lymph nodes: Unremarkable. No enlarged lymph nodes. Urinary bladder: Vazquez catheter in the urinary bladder with air presumed iatrogenic. Reproductive: Unremarkable as visualized. Bones/joints: Unremarkable. No acute fracture. Soft tissues: Anasarca. CT/CT abdomen pelvis [facility] [id number] IMPRESSION: 1. Heterogeneity of the kidneys with apparent retained contrast, likely related to provided history of acute renal failure. Perinephric edema is also present, please correlate for pyelonephritis. 2. Right kidney punctate benign parenchymal calcifications. 3. Moderate bilateral pleural effusions. 4. Cardiomegaly. 5. Coronary artery atherosclerotic calcification. 6. Bilateral dependent airspace infiltrates. 7. Anasarca. 8. Cholecystectomy. 9. Vazquez catheter in the urinary bladder with air presumed iatrogenic.
[2024-10-30 21:39] LABS: Add Urine Microscopic? YES
[2024-10-30 21:40] LABS: Troponin 5 2HR 69.31 ng/L (0-10)
[2024-10-30 21:41] LABS: Troponin 5 2HR Delta -2.69 ABS# (0-10)
--- NOTE | 2024-10-30 21:52 | CTR_ITS ---
PROCEDURE INFORMATION: Exam: CT Chest Without Contrast; Diagnostic Exam date and time: 10/30/2024 9:53 PM Age: 69 years old Clinical indication: Dyspnea TECHNIQUE: Imaging protocol: Diagnostic computed tomography of the chest without contrast. Radiation optimization: All CT scans at this facility use at least one of these dose optimization techniques: automated exposure control; mA and/or kV adjustment per patient size (includes targeted exams where dose is matched to clinical indication); or iterative reconstruction. COMPARISON: CT chest [facility] [id number] 10/19/2024 11:12 AM RADIATION DOSE METRICS: Total DLP (mGy-cm): 473.6 FINDINGS: Lungs: Bilateral dependent atelectasis versus infiltrate. Pleural spaces: Moderate bilateral pleural effusions. Heart: Cardiomegaly. Coronary arteries: Coronary artery atherosclerotic calcifications. Lymph nodes: Unremarkable. No enlarged lymph nodes. Vasculature: Unremarkable. No aortic aneurysm. Bones/joints: Unremarkable. No acute fracture. Soft tissues: Mild anasarca. CT/CT chest [facility] [id number] IMPRESSION: 1. Moderate bilateral pleural effusions. 2. Bilateral dependent atelectasis versus infiltrate. 3. Coronary artery atherosclerotic calcifications. 4. Cardiomegaly. 5. Mild anasarca.
[2024-10-30 21:57] LABS: UA Slide Review UA Slide Review Perf
--- NOTE | 2024-10-30 22:07 | ECG_ITS ---
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 Measurements Intervals [place] Rate: 69 P: 36 VA: 259 QRS: 40 QRSD: 106 T: 65 QT: 411 QTc: 441 Interpretive Statements SINUS RHYTHM WITH FIRST DEGREE AV BLOCK ANTEROSEPTAL MYOCARDIAL INFARCTION , OF INDETERMINATE AGE [40+ ms Q WAVE IN V1-V4] Compared to ECG 10/30/2024 20:13:54 No significant changes Electronically Signed On 10-31-2024 15:32:22 CDT by Becca Navarro M.D. [email or web address] [id number]
[2024-10-30] MEDS: cefTRIAXone 2,000 mg SDV 2000 MG IVP (22:31)
[2024-10-30] MEDS: doxycycline 100 MG in sodium chloride 0.9% (plus) 100 ML IV (22:37)
[2024-10-30 23:05] LABS: Procalcitonin 0.17 ng/mL (0-0.5)
[2024-10-30] MEDS: insulin regular-human 100 units/1 mL 10 UNIT IVP (23:13)
[2024-10-31] VITALS (65 sets, daily range): BP systolic 124–174; BP diastolic 54–93; PULSE 62–107; RESP 10–25; TEMP 36.6–37.1; O2SAT 82–98
--- NOTE | 2024-10-31 00:03 | PM.HP ---
Providers/Chief Complaint Primary Care Provider: Jose Bah MD Chief Complaint: CHF, SOB History of Present Illness Sandra Lemus is a 69 year old female with a past medical history of CKD, A-fib on anticoagulation with Eliquis, recent admission to the hospital between October 17, 2024 to October 28, 2024 for several issues including MANUELITO on CKD, anasarca, CHF, coronary artery disease for which she underwent initially a stress test which was abnormal and was followed by coronary angiogram and PCI with placement of 2 stents in the proximal left circumflex and 1 stent in the ramus intermedius. Patient is currently maintained on Eliquis and Plavix since that last hospital stay. Hospital course was also notable for bilateral pleural effusions for which patient underwent thoracentesis bilaterally. She was discharged to SNF for continued rehab. She is returning into the emergency room today due to complaints of increasing shortness of breath. Patient states she has noticed increased lower extremity edema, and has been having a hard time breathing. She is currently on 3 L/min supplemental O2. Labs are notable today for hyperkalemia, MANUELITO on CKD with creatinine at 6.0, CT chest with bilateral pleural effusions and atelectasis. She denies any chest pain. Denies any fever chills cough or expectoration. Review of Systems General: Reports: 10 or more systems reviewed and unremarkable except in HPI and below Const: Denies: fever(s), chills or body aches Eyes: Denies: change in vision, blurry vision or photophobia ENMT: Reports: hoarseness; Denies: throat pain, enlarged tonsils, odynophagia or nasal congestion Card: Denies: chest pain, palpitations, irregular heart rhythm, edema, swelling of feet/ankles, lightheadedness, pre-syncope, dyspnea on exertion or orthopnea Resp: Denies: dyspnea, productive cough, non-productive cough, wheezing, stridor, pain on inspiration, change in phlegm color, hemoptysis or chest congestion GI: Denies: abdominal pain, nausea, vomiting, hematemesis, coffee ground emesis, dysphagia, heartburn, diarrhea, constipation, GI cramping, change in stool character, hematochezia or melena : Denies: flank pain, difficulty voiding, dysuria, urinary frequency, urinary urgency, urinary hesitancy or hematuria Musc: Denies: neck pain, back pain, extremity pain, joint swelling, joint warmth or deformity Neuro: Denies: headache(s), numbness in extremities, weakness in extremities, sensory changes, difficulty walking, frequent falls, dizziness, vertigo, behavioral changes, Slurred speech present or seizure-like activity Psych: Denies: anxiety, depression, suicidal ideation or homicidal ideation Endo: Denies: polyuria, polydipsia, tired all the time, cold intolerance or hot flashes Rene/Lymph: Denies: easy bruising or easy bleeding Medications/Allergies Home Medications ?Medication ?Instructions ?Recorded ?Confirmed ?Last Taken ?Type Marine Phytoplankton 250 mg PO DAILY 10/04/22 10/17/24 10/16/24 History semaglutide 2 mg/dose (8 mg/3 mL) 2 mg (0.75 mL) SUBCUT .weekly #3 mL 05/31/23 10/17/24 10/12/24 Rx subcutaneous pen injector (Ozempic) Held on 10/28/24. Instructions: Resume on 11/11/24. vitamins A,C,B-maph-cjahmv 4,296 1 cap PO BID 06/19/23 10/17/24 Unknown History mcg-226 mg-90 mg capsule (PreserVision AREDS) albuterol sulfate 90 mcg/actuation 2 puff inhalation Q6H PRN 02/13/24 10/17/24 Unknown Rx aerosol inhaler (Ventolin HFA) shortness of breath or wheezing #8.5 grams galantamine 4 mg tablet 4 mg PO BID #60 tabs 05/20/24 10/17/24 Unknown Rx gabapentin 100 mg capsule 100 mg PO BID PRN nerve pain 08/05/24 10/17/24 Unknown History magnesium 250 mg tablet 250 mg PO DAILY 08/05/24 10/17/24 10/16/24 History rollaid walker with seat #1 ea 08/05/24 10/17/24 Unknown Rx bumetanide 1 mg tablet 1 mg PO BID #100 tabs 09/01/24 10/17/24 Unknown Rx ezetimibe 10 mg tablet 10 mg PO DAILY #90 tabs 09/01/24 10/17/24 10/16/24 Rx omeprazole 40 mg capsule,delayed 40 mg PO BID #120 caps 10/15/24 10/17/24 10/16/24 Rx release ondansetron 4 mg disintegrating 4 mg PO Q6H PRN nausea and 10/15/24 10/17/24 Unknown Rx tablet vomiting #60 tabs irbesartan 150 mg tablet 150 mg PO DAILY 10/17/24 10/17/24 10/16/24 History Held on 10/28/24. Instructions: Resume on 11/11/24. amlodipine 5 mg tablet 5 mg PO DAILY #30 tabs 10/28/24 Unknown Rx apixaban 5 mg tablet (Eliquis) 5 mg PO BID #90 tabs 10/28/24 Unknown Rx clopidogrel 75 mg tablet 75 mg PO DAILY #90 tabs 10/28/24 Unknown Rx insulin degludec 200 unit/mL (3 22 unit (0.11 mL) SUBCUT DAILY #9 10/28/24 10/17/24 10/16/24 Rx mL) subcutaneous pen (Tresiba mL FlexTouch U-200 insulin) isosorbide mononitrate 30 mg 30 mg PO DAILY #30 tabs 10/28/24 Unknown Rx tablet,extended release 24 hr metoprolol tartrate 50 mg tablet 50 mg PO BID@0900,2100 #60 tabs 10/28/24 Unknown Rx nitroglycerin 0.4 mg sublingual 0.4 mg sublingual Q5M PRN Chest 10/28/24 Unknown Rx tablet Pain #25 tabs Allergies Allergy/AdvReac Type Severity Reaction Status Date / Time sitagliptin (From Januvia) Allergy Unknown Unknown Verified 10/15/24 14:55 empagliflozin (From Allergy Unknown Verified 10/15/24 14:55 Jardiance) PFSH Acute PFSH: Medical History CKD (chronic kidney disease), stage IV CKD stage 3b, GFR 30-44 ml/min Diabetic nephropathy Squamous cell carcinoma of skin Nephrolithiasis History of ovarian cancer Chronic back pain Stage 3a chronic kidney disease (CKD) HLD (hyperlipidemia) Insulin dependent diabetes mellitus Essential hypertension Obesity Surgical History History of carpal tunnel release History of decompression of ulnar nerve H/O: hysterectomy Social History Smoking and tobacco/nicotine status: never used tobacco/nicotine Second hand smoke exposure: No Alcohol intake: current Alcohol intake frequency: few times a month Substance/Drug Use: never Additional social history: She wants full code as discussed with Tenzin and myself 10/17/2024 by Derian Hsieh MD Caregiver/support person: No Lives independently: No Household members: spouse Marital status: Number of children: 1 service: No Current occupational status: unemployed Current occupational exposures/hazards: No 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 Pets and animals: No Do you think of yourself as: Straight/Heterosexual Current gender identity: Female Vitals/I&O/Wt Last Vital Signs Temp 97.7 F 10/30/24 19:55 Pulse 68 10/30/24 22:00 Resp 16 10/30/24 22:00 BP 144/70 10/30/24 22:00 Pulse Ox 92 10/30/24 22:00 O2 Del Method Nasal Cannula 10/30/24 20:32 O2 Flow Rate 3 10/30/24 20:32 10/30/24 10/30/24 10/31/24 14:59 22:59 06:59 Intake Total 0 / 0 Balance 0 / 0 Weight last 48 hrs Weight 86.183 kg Physical Exam Narrative: General: Dyspneic and tachypneic in conversation, ill-appearing, on nasal cannula 3 L/min HEENT: PERRLA, pupils bilaterally equal and reactive, pallors not present Chest: Crackles to auscultation bilaterally lower lobes CVS: S1-S2 regular, no murmurs, no tachycardia, no gallops, no rubs Abdomen: Soft, nontender, no organomegaly, bowel sounds present Neuro: No focal deficits, no facial deformity, AO x3, power 5/5 in all limbs Extremities: Bilateral lower extremity pitting edema Urinary Catheter Management: Vazquez: Cath Placed During This Visit: yes Urinary Catheter Date of Insertion: 10/30/24 Urinary Catheter Time of Insertion: 21:41 Data 10/30/24 19:20 10/30/24 19:20 Micro: Microbiology 10/30/24 22:41 Blood Culture - Preliminary Blood SPECIMEN COLLECTED 10/30/24 22:34 Blood Culture - Preliminary Blood SPECIMEN COLLECTED Other data: Radiology Impressions Chest X-Ray 10/30/24 20:07 IMPRESSION: 1. Small bilateral pleural effusions. 2. Cardiomegaly mild pulmonary vascular congestion. 3. Bibasilar atelectasis versus infiltrate. Abdomen/Pelvis CT 10/30/24 21:38 IMPRESSION: 1. Heterogeneity of the kidneys with apparent retained contrast, likely related to provided history of acute renal failure. Perinephric edema is also present, please correlate for pyelonephritis. 2. Right kidney punctate benign parenchymal calcifications. 3. Moderate bilateral pleural effusions. 4. Cardiomegaly. 5. Coronary artery atherosclerotic calcification. 6. Bilateral dependent airspace infiltrates. 7. Anasarca. 8. Cholecystectomy. 9. Vazquez catheter in the urinary bladder with air presumed iatrogenic. Chest CT 10/30/24 21:52 IMPRESSION: 1. Moderate bilateral pleural effusions. 2. Bilateral dependent atelectasis versus infiltrate. 3. Coronary artery atherosclerotic calcifications. 4. Cardiomegaly. 5. Mild anasarca. Laboratory Results WBC 18.49 10^3/uL (3.29-11.43) H 10/30/24 19:20 RBC 3.63 10^6/uL (3.85-5.65) L 10/30/24 19:20 Hgb 10.50 g/dL (11.27-16.99) L 10/30/24 19:20 Hct 33.2 % (36-47) L 10/30/24 19:20 MCV 91.5 fl (85-98) 10/30/24 19:20 MCH 28.9 pg (27-33) 10/30/24 19:20 MCHC 31.6 g/dL (30-55) 10/30/24 19:20 RDW 13.7 % (12.1-15.1) 10/30/24 19:20 Plt Count 338 10^3/cmm (157-399) 10/30/24 19:20 MPV 11.4 fL (7.4-10.4) H 10/30/24 19:20 Neut % (Auto) 84.5 % 10/30/24 19:20 Lymph % (Auto) 7.1 % 10/30/24 19:20 [place] % (Auto) 4.9 % 10/30/24 19:20 Eos % (Auto) 1.7 % 10/30/24 19:20 Baso % (Auto) 0.5 % 10/30/24 19:20 Neut # (Auto) 15.62 10^3/uL (1.8-7.7) H 10/30/24 19:20 Lymph # (Auto) 1.3 10^3/uL (0.8-4.8) 10/30/24 19:20 [place] # (Auto) 0.9 10^3/uL (0.2-0.9) 10/30/24 19:20 Eos # (Auto) 0.3 10^3/uL (0.0-0.8) 10/30/24 19:20 Baso # (Auto) 0.1 10^3/uL (0.0-0.1) 10/30/24 19:20 Nucleated RBC % (auto) 0 % 10/30/24 19:20 Nucleated RBCs # 0.0 /100WBC 10/30/24 19:20 Sodium 134 mmol/L (136-145) L 10/30/24 19:20 Potassium 5.7 mmol/L (3.5-5.1) H 10/30/24 19:20 Chloride 100 mmol/L (98-107) 10/30/24 19:20 Carbon Dioxide 20 mmol/L (22-29) L 10/30/24 19:20 Anion Gap 19.7 (5-19) H 10/30/24 19:20 BUN 69 mg/dL (8-23) H 10/30/24 19:20 Creatinine 6.0 mg/dL (0.5-0.9) H* 10/30/24 19:20 GFR Calculation 7.0 mL/min (90-130) L 10/30/24 19:20 Glucose 338 mg/dL (65-115) H 10/30/24 19:20 POC Glucose 394 mg/dL (70-110) H 10/30/24 23:04 Calculated Osmolality 311 mOsm/kg (285-295) H 10/30/24 19:20 Calcium 8.8 mg/dL (8.5-10.5) 10/30/24 19:20 Total Bilirubin 0.2 mg/dL (0.15-1.2) 10/30/24 19:20 AST 10 U/L (0-32) 10/30/24 19:20 ALT 17 U/L (0-33) 10/30/24 19:20 Alkaline Phosphatase 147 U/L (35-105) H 10/30/24 19:20 Troponin T Baseline 72 ng/L (0-10) H 10/30/24 19:20 Troponin T 120 Minute 69.31 ng/L (0-10) H 10/30/24 21:14 Delta Troponin T -2.69 ABS# (0-10) L 10/30/24 21:14 NT-Pro-B Natriuret Pep 09292 pg/mL (0-125) H 10/30/24 19:20 Total Protein 6.5 g/dL (6.6-8.7) L 10/30/24 19:20 Albumin 3.2 g/dL (3.5-5.2) L 10/30/24 19:20 Globulin 3.3 g/dL (1.3-4.6) 10/30/24 19:20 Procalcitonin 0.17 ng/mL (0-0.5) 10/30/24 21:14 Urine Color Yellow (Yellow) 10/30/24 21: Urine Appearance Turbid (CLEAR) A 10/30/24 21: Urine pH 6.0 (5-7) 10/30/24 21: Ur Specific [place] 1.025 (1.005-1.030) 10/30/24: Urine Protein 4+ (Negative) A 10/30/24: Urine Glucose (UA) 3+ (Normal) H 10/30/24 21:30 Urine Ketones Negative (Negative) 10/30/24: Urine Blood 2+ (Negative) A 10/30/24: Urine Nitrate Negative (Negative) 10/30/24 21: Urine Bilirubin Negative (Negative) 10/30/24 21: Urine Urobilinogen 0.2 mg/dL (Negative) 10/30/24 21:30 Ur Leukocyte Esterase 2+ (Negative) A 10/30/24: Urine RBC 21-50 /hpf (0-2) H 10/30/24 21:30 Urine WBC >100 /hpf (0-5) H 10/30/24 21:30 Ur Squamous Epith Cells 5-10 /hpf (0-5) H 10/30/24 21: Amorphous Sediment Not Reportable 10/30/24 21:30 Urine Bacteria None seen /hpf (NONE) 10/30/24 21:30 Hyaline Casts 6.61 /lpf 10/30/24 21:30 Urine Yeast 2+ /hpf H 10/30/24 21:30 U Random Total Protein 1067 mg/dL 10/30/24 21:30 A&P Assessment and plan 1. Hypoxic respiratory failure: 69-year-old lady with known CKD with baseline creatinine most recently ranging between 2.5 to 3.3, most recently at 3.6 on recent hospital discharge on October 28, 2024. Recent complicated hospital stay for CAD, PCI with 3 stents as noted above, bilateral thoracentesis and CHF exacerbation for which she was treated with IV diuresis. Presents today from fpc with worsening dyspnea, lower extremity edema, and generalized anasarca. She is saturating 93% on 4 L/min supplemental O2 at the time of this exam. She is tachypneic in conversation with respiratory rate up to 25 while conversing. Overall appears to be uncomfortable and ill-appearing. EKG today shows sinus rhythm with first-degree AV block no new changes today. Baseline troponin at 72, 2-hour downtrending at 69, likely related to recent intervention and CKD. She denies any active chest pain at this time. Her acute hypoxemic respiratory failure is currently multifactorial related to acute on chronic systolic CHF exacerbation, MANUELITO on CKD and bilateral pleural effusions. She has received Lasix 80 mg IV in the emergency room, Vazquez catheter has been placed, less than 100 cc urine output currently in the bag. Will continue IV diuresis with Bumex 1 mg IV every 12 hours and closely monitor kidney function and urine output. check ABG 2. Acute exacerbation of CHF (congestive heart failure): IV diuresis as noted above Closely monitor kidney function and urine output 3. Acute kidney injury superimposed on CKD: MANUELITO on CKD with creatinine up to 6.0 today. Suspect this is related to contrast-induced nephropathy on top of CKD. Patient is clinically hypervolemic, therefore would not give her any IV fluids for now. Consult nephrology, discussed with patient that if potassium does not improve, creatinine trends up and or there are signs of worsening metabolic acidosis, she may need hemodialysis. Patient is agreeable for the same. 4. Hyperkalemia: Patient has received Kayexalate 30 mg in the emergency room. Insulin 10 units IV push has been requested to be given. Her blood glucose is 394 at this time. Additionally ordered albuterol inhalation. Repeat CMP in 4 hours No EKG changes relating to the hyperkalemia as of now. 5. Type 2 diabetes mellitus: Hyperglycemia, blood glucose 394 most recently. 10 units IV push insulin has just been given. Would place her on a high-dose sliding scale during her hospital stay. 6. UTI (urinary tract infection): AUA with 2+ leukocyte Estrace, WBC greater than 100, squamous epithelial cells 5-10, specimen may not be a clean-catch. For now we will continue ceftriaxone 1 g IV every 24 hours as started in the ER while awaiting urine culture results. 7. Pleural effusion: Bilateral pleural effusions, noted to be moderate on CT of her chest. She required bilateral thoracentesis on her most recent admission. Patient is currently on Plavix 75 mg daily which cannot be interrupted for thoracentesis given her recent stents. Additionally on Eliquis 5 mg p.o. twice daily. For now we will continue anticoagulation and Plavix and assess for improvement with IV diuresis and HD (if progresses onto this) 8. Coronary artery disease: Status post recent stents as noted above placed on October 27, 2024. Plan: dvt ppx: Eliquis Full code PDMP PDMP Reviewed: Not Reviewed Attestations Medical Necessity Statement*: > 2 midnight stay is anticipated fro above care Coding Level of Care Code Acute Code for Chg Fwd High MDM includes number and complexity of problems actively addressed during encounter, amount and/or complexity of data reviewed/ordered and described risk of complication, morbidity or mortality of management as documented Diagnoses Hypoxic respiratory failure J96.91 Acute exacerbation of CHF (congestive heart failure) I50.9 Acute kidney injury superimposed on CKD N17.9; N18.9 Hyperkalemia E87.5 Type 2 diabetes mellitus E11.9 UTI (urinary tract infection) N39.0 Pleural effusion J90 Coronary artery disease I25.10
[2024-10-31 02:19] LABS: Troponin 5 6HR 72.33 ng/L (0-10); Troponin 5 6HR Delta 0.33 ng/L (0-12)
--- NOTE | 2024-10-31 02:21 | ECG_ITS ---
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 Measurements Intervals [place] Rate: 67 P: 38 OK: 266 QRS: -8 QRSD: 97 T: 50 QT: 412 QTc: 436 Interpretive Statements SINUS RHYTHM WITH FIRST DEGREE AV BLOCK ANTEROSEPTAL MYOCARDIAL INFARCTION , OF INDETERMINATE AGE [40+ ms Q WAVE IN V1-V4] Compared to ECG 10/30/2024 22:13:14 No significant changes Electronically Signed On 10-31-2024 15:31:25 CDT by Becca Navarro M.D. [id number]
[2024-10-31 02:22] LABS: Alanine Aminotransferase 16 U/L (0-33); Albumin Level 3.1 g/dL (3.5-5.2); Alkaline Phosphatase 142 U/L (35-105); Anion Gap 20.3 (5-19); Aspartate Amino Transferase 10 U/L (0-32); Blood Urea Nitrogen 70 mg/dL (8-23); Calcium 8.7 mg/dL (8.5-10.5); Carbon Dioxide 21 mmol/L (22-29); Chloride 103 mmol/L (98-107); Creatinine Clr Calc Pharmacy 9.8468; Globulin 3.3 g/dL (1.3-4.6); Glucose 264 mg/dL (65-115); Osmolality Calculated 318 mOsm/kg (285-295); Potassium 5.3 mmol/L (3.5-5.1); Sodium 139 mmol/L (136-145); Total Protein 6.4 g/dL (6.6-8.7)
[2024-10-31 02:34] LABS: ABG PCO2 43.4 mmHg (35-45); ABG PH Result 7.30 (7.35-7.45); Arterial Blood Gas Hematocrit 29.9 % (37-47); Blood Gas Allen Test Pos; Blood Gas LPM 4.0 %; Blood Gas Operator Identificat JDB; Blood Gas Sample Site Radial, right; Blood Gas Sample Type Arterial; HCO3 ABG 21.2 mmol/L (22-26); PO2 ABG 71.0 mmHg (80.0-100.0)
--- NOTE | 2024-10-31 02:39 | PC.NURSE ---
Labs Patient's blood glucose 297, creatinine 6.2, and potassium 5.3. Dr. Ruiz notified; order received to give first dose of ordered sliding scale insulin now.
[2024-10-31] MEDS: bumetanide 0.25 mg/mL SDV 4 mL 1 MG IVP ×2 (09:30→10:18)
--- NOTE | 2024-10-31 09:31 | PC.SOCIAL ---
IMM Update pg 2 of IMM Updated and reviewed w/ patient. Copy provided and copy dated, initialed and placed in chart.
[2024-10-31] MEDS: fluticasone nasal spray 16gm Btl 1 SPRAY NASAL (10:17)
[2024-10-31] MEDS: albumin 25 G/100 ML BAG 60 G IV ×2 (10:18→18:02)
--- NOTE | 2024-10-31 12:26 | PM.CONSULT ---
Providers/Reason For Consult Consulting Physician/Specialty*: kommana/Nephrology Reason for Consult*: Acute on CKD Attending Physician: Pablo West MD Primary Care Provider: Jose Bah MD History of Present Illness History of Present Illness Sandra Lemus is a 69 year old female Review of Systems Narrative: OTHER ROS NEGATIVE Medications/Allergies Home Medications ?Medication ?Instructions ?Recorded ?Confirmed ?Last Taken ?Type Marine Phytopl[place] 250 mg PO DAILY 10/04/22 10/17/24 10/16/24 History semaglutide 2 mg/dose (8 mg/3 mL) 2 mg (0.75 mL) SUBCUT .weekly #3 mL 05/31/23 10/17/24 10/12/24 Rx subcutaneous pen injector (Ozempic) Held on 10/28/24. Instructions: Resume on 11/11/24. vitamins A,C,A-vyhi-eifwgr 4,296 1 cap PO BID 06/19/23 10/17/24 Unknown History mcg-226 mg-90 mg capsule (PreserVision AREDS) albuterol sulfate 90 mcg/actuation 2 puff inhalation Q6H PRN 02/13/24 10/17/24 Unknown Rx aerosol inhaler (Ventolin HFA) shortness of breath or wheezing #8.5 grams galantamine 4 mg tablet 4 mg PO BID #60 tabs 05/20/24 10/17/24 Unknown Rx gabapentin 100 mg capsule 100 mg PO BID PRN nerve pain 08/05/24 10/17/24 Unknown History magnesium 250 mg tablet 250 mg PO DAILY 08/05/24 10/17/24 10/16/24 History rollaid walker with seat #1 ea 08/05/24 10/17/24 Unknown Rx bumetanide 1 mg tablet 1 mg PO BID #100 tabs 09/01/24 10/17/24 Unknown Rx ezetimibe 10 mg tablet 10 mg PO DAILY #90 tabs 09/01/24 10/17/24 10/16/24 Rx omeprazole 40 mg capsule,delayed 40 mg PO BID #120 caps 10/15/24 10/17/24 10/16/24 Rx release ondansetron 4 mg disintegrating 4 mg PO Q6H PRN nausea and 10/15/24 10/17/24 Unknown Rx tablet vomiting #60 tabs irbesartan 150 mg tablet 150 mg PO DAILY 10/17/24 10/17/24 10/16/24 History Held on 10/28/24. Instructions: Resume on 11/11/24. amlodipine 5 mg tablet 5 mg PO DAILY #30 tabs 10/28/24 Unknown Rx apixaban 5 mg tablet (Eliquis) 5 mg PO BID #90 tabs 10/28/24 Unknown Rx clopidogrel 75 mg tablet 75 mg PO DAILY #90 tabs 10/28/24 Unknown Rx insulin degludec 200 unit/mL (3 22 unit (0.11 mL) SUBCUT DAILY #9 10/28/24 10/17/24 10/16/24 Rx mL) subcutaneous pen (Tresiba mL FlexTouch U-200 insulin) isosorbide mononitrate 30 mg 30 mg PO DAILY #30 tabs 10/28/24 Unknown Rx tablet,extended release 24 hr metoprolol tartrate 50 mg tablet 50 mg PO BID@0900,2100 #60 tabs 10/28/24 Unknown Rx nitroglycerin 0.4 mg sublingual 0.4 mg sublingual Q5M PRN Chest 10/28/24 Unknown Rx tablet Pain #25 tabs Allergies Allergy/AdvReac Type Severity Reaction Status Date / Time sitagliptin (From Apruv) Allergy Unknown Unknown Verified 10/15/24 14:55 empagliflozin (From Allergy Unknown Verified 10/15/24 14:55 Jardiance) Current Medications Generic Name Dose Route Start Last Admin Trade Name Freq PRN Reason Stop Dose Admin Amlodipine Besylate 5 mg 10/31/24 09:00 10/31/24 09:31 Amlodipine 5 Mg Tablet PO 5 mg DAILY DHRUV Administration Apixaban 5 mg 10/31/24 09:00 10/31/24 09:31 Apixaban 5 Mg Tablet PO 5 mg On Hold: 10/31/24 09:52 BID DHRUV Administration Clopidogrel Bisulfate 75 mg 10/31/24 09:00 10/31/24 09:31 Clopidogrel 75 Mg Tablet PO 75 mg DAILY DHRUV Administration Ezetimibe 10 mg 10/31/24 09:00 10/31/24 09:31 Ezetimibe 10 Mg Tablet PO 10 mg DAILY DHRUV Administration Fluticasone Propionate 1 spray 10/31/24 09:35 10/31/24 10:17 Fluticasone Nasal [place] 16gm Btl NASAL 1 spray BID DHRUV Administration Albumin Human 25 g in 100 mls @ 60 mls/hr 10/31/24 10:00 10/31/24 12:18 Albumin IV Infused Q8H DHRUV Infusion Insulin Human Lispro 0 unit 10/31/24 02:38 10/31/24 12:19 Insulin Lispro 100 Unit/1 Ml SUBCUT 6 unit WM&BEDTIME DHRUV Administration Protocol Metoprolol Tartrate 50 mg 10/31/24 09:00 10/31/24 09:31 Metoprolol Tartrate 50 Mg Tablet PO 50 mg BID@0900,2100 DHRUV Administration Pantoprazole Sodium 40 mg 10/31/24 09:00 10/31/24 09:[address] 40 Mg Tablet PO 40 mg DAILY DHRUV Administration PFSH Acute PFSH: Medical History (Updated 10/31/24 @ 01:25 by Sharon Ruiz MD) CKD (chronic kidney disease), stage IV CKD stage 3b, GFR 30-44 ml/min Diabetic nephropathy Squamous cell carcinoma of skin Nephrolithiasis History of ovarian cancer Chronic back pain Stage 3a chronic kidney disease (CKD) HLD (hyperlipidemia) Insulin dependent diabetes mellitus Essential hypertension Obesity Surgical History History of carpal tunnel release History of decompression of ulnar nerve H/O: hysterectomy Social History Smoking and tobacco/nicotine status: never used tobacco/nicotine Second hand smoke exposure: No Alcohol intake: current Alcohol intake frequency: few times a month Substance/Drug Use: never Additional social history: She wants full code as discussed with Tenzin and myself 10/17/2024 by Derian Hsieh MD Caregiver/support person: No Lives independently: No Household members: spouse Marital status: Number of children: 1 service: No Current occupational status: unemployed Current occupational exposures/hazards: No 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 Pets and animals: No Do you think of yourself as: Straight/Heterosexual Current gender identity: Female Vitals/I&O/Wt Last Vital Signs Temp 98 F 10/31/24 04:45 Pulse 66 10/31/24 07:44 Resp 16 10/31/24 07:44 BP 132/77 10/31/24 06:00 Pulse Ox 96 10/31/24 07:44 O2 Del Method Nasal Cannula 10/31/24 07:44 O2 Flow Rate 3 10/31/24 07:44 10/30/24 10/31/24 10/31/24 22:59 06:59 14:59 Intake Total 0 / 0 100 / 100 Output Total 275 / 275 Balance 0 / 0 -275 / -275 100 / 100 Weight last 48 hrs Weight 98.5 kg Weight 98.5 kg Weight 86.183 kg Physical Exam Narrative: awake , alert , no distress PEERLA S1S2 RRR per report Lung with decreased breath sounds and + crackles Abd soft , non tender 1+ LE edema Urinary Catheter Management: Vazquez: Cath Placed During This Visit: yes Reason for Continuing Indwelling Catheter: Accurate Measurement of Urinary Output in Critically Ill Patients Urinary Catheter Date of Insertion: 10/30/24 Urinary Catheter Time of Insertion: 21:41 Data 10/30/24 19:20 10/31/24 01:39 Micro: Microbiology 10/30/24 22:41 Blood Culture - Preliminary Blood SPECIMEN COLLECTED 10/30/24 22:34 Blood Culture - Preliminary Blood SPECIMEN COLLECTED A&P Assessment and plan 1. Acute kidney injury superimposed on CKD: 2. CKD (chronic kidney disease), stage IV: 1. Acute on chronic kidney disease: Creatinine is in the 1.3-2 range chronically and followed by [facility], presumed secondary to diabetic nephropathy. Creatinine during recent admision was in 3 range . Now presents with severe MANUELITO with Cr 6.0 and volume overload likely contrast nephropathy - getting IV diuretics , added IV albumin , If no response to diuretics , will need HD UA with 4+ protein and 1+ blood. Patient likely has diabetic nephropathy with nephrotic range proteinuria. - recent renal US -no hydronephrosis and normal-sized kidneys. 2. Congestive cardiac failure, recent C 3. Hypertension: Continue current meds 4. Anemia: Hemoglobin 10.5, monitor Seen and examined with the nurse using audiovisual equipment. The patient consents to telehealth. Plan: Anticoagulation and diuretics. for cardiac cath PDMP PDMP Reviewed: Not Reviewed Consult Attestations Medical Necessity Statement: PER MEDICINE Coding Level of Care Code Acute Code for [facility] Fwd Diagnoses Acute kidney injury superimposed on CKD N17.9; N18.9 CKD (chronic kidney disease), stage IV N18.4
--- NOTE | 2024-10-31 13:47 | P.PN_ITS ---
Vitals/I&O/Wt Last Vital Signs Temp 98 F 10/31/24 04:45 Pulse 66 10/31/24 07:44 Resp 16 10/31/24 07:44 BP 132/77 10/31/24 06:00 Pulse Ox 96 10/31/24 07:44 O2 Del Method Nasal Cannula 10/31/24 07:44 O2 Flow Rate 3 10/31/24 07:44 10/30/24 10/31/24 10/31/24 22:59 06:59 14:59 Intake Total 0 / 0 100 / 100 Output Total 275 / 275 Balance 0 / 0 -275 / -275 100 / 100 Weight last 48 hrs Weight 98.5 kg Weight 98.5 kg Weight 86.183 kg Physical Exam 2 Narrative: General: Dyspneic and tachypneic in conversation, ill-appearing, on nasal cannula 3 L/min HEENT: PERRLA, pupils bilaterally equal and reactive, pallors not present Chest: Crackles to auscultation bilaterally lower lobes CVS: S1-S2 regular, no murmurs, no tachycardia, no gallops, no rubs Abdomen: Soft, nontender, no organomegaly, bowel sounds present Neuro: No focal deficits, no facial deformity, AO x3, power 5/5 in all limbs Extremities: Bilateral lower extremity pitting edema Urinary Catheter Management: Vazquez: Cath Placed During This Visit: yes Reason for Continuing Indwelling Catheter: Accurate Measurement of Urinary Output in Critically Ill Patients Urinary Catheter Date of Insertion: 10/30/24 Urinary Catheter Time of Insertion: 21:41 Data 10/30/24 19:20 10/31/24 01:39 Micro: Microbiology 10/30/24 22:41 Blood Culture - Preliminary Blood SPECIMEN COLLECTED 10/30/24 22:34 Blood Culture - Preliminary Blood SPECIMEN COLLECTED A&P Assessment and plan 1. Hypoxic respiratory failure: 2. Acute exacerbation of CHF (congestive heart failure): 3. Acute kidney injury superimposed on CKD: 4. Hyperkalemia: Resolved after initial treatment in the ER. Continue to monitor. If needed will add Kayexalate and calcium gluconate. 5. Type 2 diabetes mellitus: Recent A1c of 8.8. Continue with insulin sliding scale at moderate dose protocol. Takes Lantus 22 units at home. For now we will hold off p.o. depending on insulin requirement in next 24 hours can restart Lantus. 6. UTI (urinary tract infection): UA with 2+ leukocyte Estrace, WBC greater than 100, squamous epithelial cells 5- 10, specimen may not be a clean-catch. For now we will continue ceftriaxone 1 g IV every 24 hours as started in the ER while awaiting urine culture results. Follow-up blood cultures. 7. Pleural effusion: Bilateral pleural effusions, noted to be moderate on CT of her chest. She required bilateral thoracentesis on her most recent admission. Patient is currently on Plavix 75 mg daily which cannot be interrupted for thoracentesis given her recent stents. Additionally on Eliquis 5 mg p.o. twice daily. For now we will continue anticoagulation and Plavix and assess for improvement with IV diuresis and HD (if progresses onto this) 8. Coronary artery disease: Status post recent stents as noted above placed on October 27, 2024. Currently declines any chest pain. Continue with DAPT, ezetimibe for now. Appreciate recent A1c and lipid panel along with echocardiogram. Plan: 69-year-old lady with known CKD with baseline creatinine most recently ranging between 2.5 to 3.3, most recently at 3.6 on recent hospital discharge on October 28, 2024. Recent complicated hospital stay for CAD, PCI with 3 stents as noted above, bilateral thoracentesis and CHF exacerbation for which she was treated with IV diuresis. Presents today from half-way with worsening dyspnea, lower extremity edema, and generalized anasarca. She is saturating 93% on 4 L/min supplemental O2 at the time of this exam. She is tachypneic in conversation with respiratory rate up to 25 while conversing. Overall appears to be uncomfortable and ill-appearing. EKG today shows sinus rhythm with first-degree AV block no new changes today. Baseline troponin at 72, 2-hour downtrending at 69, likely related to recent intervention and CKD. She denies any active chest pain at this time. Her acute hypoxemic respiratory failure is currently multifactorial related to acute on chronic systolic CHF exacerbation, MANUELITO on CKD and bilateral pleural effusions. Acute hypoxic respiratory failure: Oxygen supplementation keeping saturation over 90%. Most likely in setting of congestive heart failure. Patient does have bilateral pleural effusion. Recently had thoracentesis. For now we will try to avoid thoracentesis again given higher chance of empyema. Additionally patient is on Eliquis and Plavix. Acute on chronic decompensated systolic congestive heart failure: Echocardiogram done recently on 10/15 showed EF of 45 to 50% with mild MR. Fluid restriction to less than 1500 cc. Strict input output charting. IV Bumex 2 mg twice daily. If urine output does not improve can try metolazone. Given worsening renal functions in setting of CKD patient might need dialysis. Patient is agreeable for dialysis if needed. Monitor electrolytes. MANUELITO on CKD: Most likely AKIRA in setting of CKD. Patient did have cardiac angiogram recently. Associated with hyperkalemia on admission with potassium up to 5.7. Down to 5.3 today. Baseline creatinine seems to be around 3.2-3.6. Currently 6.2 associated with uremia, hyperkalemia and metabolic acidosis. Diuresis as above. Medical reconciliation done for nephrotoxic drugs. Hold off on ARB. Nephrology on board. Patient might need dialysis. Hold off on Eliquis for now. Hypertension: Goal blood pressure less than 140/90 mmHg. For now continue with home dose of amlodipine and metoprolol. Uptitrate as for goal blood pressure. Full code Renal dialysis diabetic diet SCD for DVT prophylaxis. Eliquis on hold given possible need of temporal dialysis catheter. 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
--- NOTE | 2024-10-31 14:22 | PC.PHAR ---
Patient is from [facility]. Meds updated from list .
[2024-10-31 17:11] LABS: Anion Gap 20.7 (5-19); Blood Urea Nitrogen 73 mg/dL (8-23); Calcium 8.6 mg/dL (8.5-10.5); Carbon Dioxide 19 mmol/L (22-29); Chloride 103 mmol/L (98-107); Creatinine Clr Calc Pharmacy 9.3924; Glucose 137 mg/dL (65-115); Osmolality Calculated 310 mOsm/kg (285-295); Potassium 4.7 mmol/L (3.5-5.1); Sodium 138 mmol/L (136-145)
--- NOTE | 2024-10-31 17:20 | PC.NURSE ---
This Nurse Spoke with Dr Reynaga regarding pt's critical Creatinine of 6.5 and increasing BUN of 73. Bumex gtt and Zaroxyln to be started. Also discussed pt's reddened, healing sores, and edematous legs, SCD order and 's request to use her own compression socks. Order received to hold off on SCDs for now and not apply her compression socks for now.
[2024-10-31] MEDS: bumetanide 25 MG in empty flexible container 1 EACH 8 MG IV (18:02)
--- NOTE | 2024-10-31 19:49 | PC.NURSE ---
Shift summary: Pt rested in be throughout shift. Reinforcement of education and info provided required. Some short term memory loss noted. Pt has denies pain this shift. She has reported shortness of breath off and on this shift. Bumex IVP and Albumin IV admin. Pt has not had much urinary output this shift 475ml. Bumex gtt started. Anasarca noted. Pitting edema and redness on lower extremities noted. Pt has had a excellent appetite, she has cleared every plate this shift. She is adhering to the fluid restriction. Her BUN and Creatinine have increased this shift.
--- NOTE | 2024-10-31 20:20 | ECG_ITS ---
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 Measurements Intervals [place] Rate: 67 P: 41 DE: 240 QRS: -4 QRSD: 98 T: 61 QT: 413 QTc: 437 Interpretive Statements SINUS RHYTHM WITH FIRST DEGREE AV BLOCK ANTEROSEPTAL MYOCARDIAL INFARCTION , OF INDETERMINATE AGE [40+ ms Q WAVE IN V1-V4] Compared to ECG 10/31/2024 02:21:39 No significant changes Electronically Signed On 11-04-2024 14:59:23 CDT by Jeevan Stinson M.D. [email or web address]
[2024-10-31] MEDS: calcium gluconate 0.1 gm/mL 10% SDV 10mL 2 GM IVP (20:27)
[2024-10-31 21:11] LABS: Anion Gap 20.7 (5-19); Blood Urea Nitrogen 75 mg/dL (8-23); Calcium 10.2 mg/dL (8.5-10.5); Carbon Dioxide 21 mmol/L (22-29); Chloride 101 mmol/L (98-107); Creatinine Clr Calc Pharmacy 9.8468; Glucose 197 mg/dL (65-115); Osmolality Calculated 314 mOsm/kg (285-295); Potassium 4.7 mmol/L (3.5-5.1); Sodium 138 mmol/L (136-145)
[2024-10-31] MEDS: cefTRIAXone 1,000 mg SDV 1000 MG IVP (21:52)
--- NOTE | 2024-10-31 22:03 | PM.CCNAC ---
Critical Care Event Note Received a call from nurse stating patient having frequent pauses with highest of 8 seconds. Patient is asymptomatic. Slightly drowsy. Blood pressure 170 systolic on examination. Stat BMP shows a potassium of 4.7, BUN of 75 with creatinine of 6.2. Patient is on Bumex drip with minimal urine output. Plan: Started on dopamine drip at fixed rate of 3. Clonidine patch 0.1 for high blood pressure. Stop metoprolol for now. IV hydralazine 10 mg every 4 hours as needed for systolic of more than 160. 0.5 atropine as needed. Patch attached at bedside The high probability of a clinically significant, sudden or life threatening deterioration of the patient's [cardiac] system(s) required my full and direct attention, intervention and personal management. The critical care time is as shown. This time is in addition to time spent performing any reported procedures but includes the following: [x] Data and vital sign review and interpretation [x] Patient assessment, examination and intervention [x] Documentation [x] Medication orders and management Critical Care Time Code activated: No Critical Care Time (min): 70 Coding Level of Care Code Critical Care Other Coding Information Prolonged care (total time indicated above or notated here) (Additional care provided for new bradycardia with pauses)
[2024-10-31] MEDS: DOPamine drip 400 MG/250 ML PREMIX 11.08 MG IV (22:25)
[2024-11-01] VITALS (51 sets, daily range): BP systolic 122–181; BP diastolic 63–116; PULSE 65–131; RESP 11–32; TEMP 36.9–37.1; O2SAT 78–96
[2024-11-01] MEDS: albumin 25 G/100 ML BAG 60 G IV (03:09)
[2024-11-01 05:02] LABS: Alanine Aminotransferase 13 U/L (0-33); Albumin Level 3.5 g/dL (3.5-5.2); Alkaline Phosphatase 114 U/L (35-105); Anion Gap 22.5 (5-19); Aspartate Amino Transferase 9 U/L (0-32); Blood Urea Nitrogen 73 mg/dL (8-23); Calcium 9.3 mg/dL (8.5-10.5); Carbon Dioxide 20 mmol/L (22-29); Chloride 101 mmol/L (98-107); Creatinine Clr Calc Pharmacy 9.6905; Globulin 3.6 g/dL (1.3-4.6); Glucose 116 mg/dL (65-115); Osmolality Calculated 311 mOsm/kg (285-295); Potassium 4.5 mmol/L (3.5-5.1); Sodium 139 mmol/L (136-145); Total Protein 7.1 g/dL (6.6-8.7)
[2024-11-01 05:26] LABS: Hematocrit 31.4 % (36-47); Hemoglobin 10.00 g/dL (11.27-16.99); Mean Corpuscular HGB Conc 31.8 g/dL (30-55); Mean Corpuscular Hemoglobin 28.9 pg (27-33); Mean Corpuscular Volume 90.8 fl (85-98); Nucleated Red Blood Cells % 0 %; Platelet Count 300 10^3/cmm (157-399); Red Blood Count 3.46 10^6/uL (3.85-5.65); White Blood Count 14.74 10^3/uL (3.29-11.43)
[2024-11-01] MEDS: bumetanide 25 MG in empty flexible container 1 EACH 8 MG IV (05:46)
[2024-11-01] MEDS: fluticasone nasal spray 16gm Btl 1 SPRAY NASAL ×2 (08:36→17:23)
[2024-11-01 10:15] LABS: Hepatitis B Surface Antigen Non-Reactive (Nonreactive)
--- NOTE | 2024-11-01 10:38 | P.PN_ITS ---
Subjective 2 Subjective: c/o SOB , on 4L nc Medications: Reviewed: Yes Vitals/I&O/Wt Last Vital Signs Temp 98.5 F 11/01/24 08:30 Pulse 74 11/01/24 10:30 Resp 32 H 11/01/24 10:30 BP 165/83 11/01/24 10:30 Pulse Ox 91 11/01/24 10:30 O2 Del Method Nasal Cannula 11/01/24 10:30 O2 Flow Rate 4 11/01/24 10:30 10/31/24 11/01/24 11/01/24 22:59 06:59 14:59 Intake Total 350 / 1310 193.867 / 1503.867 Output Total 150 / 475 1700 / 2175 Balance 200 / 835 -1506.133 / -671.133 Weight last 48 hrs Weight 100 kg Weight 98.5 kg Weight 98.5 kg Weight 86.183 kg Physical Exam 2 Narrative: awake , alert , no distress PEERLA S1S2 RRR per report Lung with decreased breath sounds and + crackles Abd soft , non tender 1+ LE edema Urinary Catheter Management: Vazquez: Cath Placed During This Visit: yes Reason for Continuing Indwelling Catheter: Accurate Measurement of Urinary Output in Critically Ill Patients Urinary Catheter Date of Insertion: 10/30/24 Urinary Catheter Time of Insertion: 21:41 Data 11/01/24 05:12 11/01/24 04:23 Micro: Microbiology 10/30/24 22:41 Blood Culture - Preliminary Blood NEGATIVE TO DATE 10/30/24 22:34 Blood Culture - Preliminary Blood NEGATIVE TO DATE A&P Assessment and plan 1. Acute kidney injury superimposed on CKD: 2. CKD (chronic kidney disease), stage IV: 1. Acute on chronic kidney disease: Creatinine is in the 1.3-2 range chronically and followed by [facility], presumed secondary to diabetic nephropathy. Creatinine during recent admision was in 3 range . Now presents with severe MANUELITO with Cr 6.0 and volume overload likely contrast nephropathy - getting IV diuretics , added IV albumin --> no response , O2 requirement increased - requested temporary HD catheter placement and hd today UA with 4+ protein and 1+ blood. Patient likely has diabetic nephropathy with nephrotic range proteinuria. - recent renal US -no hydronephrosis and normal-sized kidneys. 2. Congestive cardiac failure, recent LHC 3. Hypertension: Continue current meds 4. Anemia: Hemoglobin 10.5, monitor Seen and examined with the nurse using audiovisual equipment. The patient consents to telehealth. Plan: Anticoagulation and diuretics. for cardiac cath PDMP PDMP Reviewed: Not Reviewed Attestations 2 Medical Necessity Statement*: calebne Coding Level of Care Code Acute Code for [facility] Fwd Diagnoses Acute kidney injury superimposed on CKD N17.9; N18.9 CKD (chronic kidney disease), stage IV N18.4
--- NOTE | 2024-11-01 10:56 | PM.CONSULT ---
Providers/Reason For Consult Consulting Physician/Specialty*: Lela Bear DO Reason for Consult*: Need for dialysis catheter Requesting Physician: Jenna Bai Attending Physician: Pablo West MD Primary Care Provider: Jose Bah MD History of Present Illness History of Present Illness Sandra Lemus is a 69 year old female who I was consulted for placement of temporary dialysis catheter. Apparently, she has severe MANUELITO on CKD. She has CHF, fluid overload and according to nephrology she is not responding to Bumex, albumin. She has increased O2 requirements and increased work of breathing. She is also on doapmine drip. She is on Plavix and Eliquis was stopped yesterday am. She had recent cardiac stent placement. Review of Systems Const: Denies: fever(s) or chills Resp: Reports: dyspnea Medications/Allergies Home Medications ?Medication ?Instructions ?Recorded ?Confirmed ?Last Taken ?Type semaglutide 2 mg/dose (8 mg/3 mL) 2 mg (0.75 mL) SUBCUT .weekly #3 mL 05/31/23 10/31/24 10/12/24 Rx subcutaneous pen injector (Ozempic) Held on 10/28/24. Instructions: Resume on 11/11/24. vitamins A,C,[id number]-jpzh-[id number] 4,296 1 cap PO BID 06/19/23 10/31/24 10/31/24 08:00 History mcg-226 mg-90 mg capsule (PreserVision AREDS) albuterol sulfate 90 mcg/actuation 2 puff inhalation Q6H PRN 02/13/24 10/31/24 10/30/24 08:05 Rx aerosol inhaler (Ventolin HFA) shortness of breath or wheezing #8.5 grams galantamine 4 mg tablet 4 mg PO BID #60 tabs 05/20/24 10/31/24 10/31/24 08:00 Rx gabapentin 100 mg capsule 100 mg PO BID PRN nerve pain 08/05/24 10/31/24 10/31/24 08:00 History magnesium 250 mg tablet 250 mg PO DAILY 08/05/24 10/31/24 10/31/24 08:00 History rollaid walker with seat #1 ea 08/05/24 10/31/24 Unknown Rx bumetanide 1 mg tablet 1 mg PO BID #100 tabs 05/12/25 07/11/25 07/11/25 08:00 Rx ezetimibe 10 mg tablet 10 mg PO DAILY #90 tabs 09/01/24 10/31/24 10/31/24 08:00 Rx omeprazole 40 mg capsule,delayed 40 mg PO BID #120 caps 10/15/24 10/31/24 10/31/24 08:00 Rx release irbesartan 150 mg tablet 150 mg PO DAILY 10/17/24 10/31/24 10/31/24 08:00 History Held on 10/28/24. Instructions: Resume on 11/11/24. amlodipine 5 mg tablet 5 mg PO DAILY #30 tabs 10/28/24 10/31/24 10/31/24 08:00 Rx apixaban 5 mg tablet (Eliquis) 5 mg PO BID #90 tabs 10/28/24 10/31/24 10/30/24 08:00 Rx clopidogrel 75 mg tablet 75 mg PO DAILY #90 tabs 10/28/24 10/31/24 10/31/24 08:00 Rx insulin degludec 200 unit/mL (3 22 unit (0.11 mL) SUBCUT DAILY #9 10/28/24 10/31/24 10/31/24 07:00 Rx mL) subcutaneous pen (Tresiba mL FlexTouch U-200 insulin) isosorbide mononitrate 30 mg 30 mg PO DAILY #30 tabs 10/28/24 10/31/24 10/31/24 08:00 Rx tablet,extended release 24 hr metoprolol tartrate 50 mg tablet 50 mg PO BID@0900,2100 #60 tabs 10/28/24 10/31/24 10/31/24 08:00 Rx nitroglycerin 0.4 mg sublingual 0.4 mg sublingual Q5M PRN Chest 10/28/24 10/31/24 Unknown Rx tablet Pain #25 tabs Allergies Allergy/AdvReac Type Severity Reaction Status Date / Time sitagliptin (From Apruv) Allergy Unknown Unknown Verified 10/15/24 14:55 empagliflozin (From Allergy Unknown Verified 10/15/24 14:55 Jardiance) Current Medications Generic Name Dose Route Start Last Admin Trade Name Freq PRN Reason Stop Dose Admin Amlodipine Besylate 5 mg 10/31/24 09:00 11/01/24 08:35 Amlodipine 5 Mg Tablet PO 5 mg DAILY DHRUV Administration Apixaban 5 mg 10/31/24 09:00 10/31/24 09:31 Apixaban 5 Mg Tablet PO 5 mg On Hold: 10/31/24 09:52 BID DHRUV Administration Aspirin 81 mg 11/01/24 09:00 11/01/24 08:35 Aspirin 81 Mg Ec Tablet PO 81 mg DAILY DHRUV Administration Ceftriaxone Sodium 1,000 mg 10/31/24 22:00 10/31/24 21:52 Ceftriaxone 1,000 Mg Sdv IVP 1,000 mg Q24H DHRUV Administration Protocol Clonidine HCl 0.1 mg 10/31/24 23:16 11/01/24 04:33 Clonidine 0.1 Mg Tablet PO 0.1 mg BID PRN Administration SBP > 160 Clopidogrel Bisulfate 75 mg 10/31/24 09:00 11/01/24 08:36 Clopidogrel 75 Mg Tablet PO 75 mg DAILY DHRUV Administration Ezetimibe 10 mg 10/31/24 09:00 11/01/24 08:35 Ezetimibe 10 Mg Tablet PO 10 mg DAILY DHRUV Administration Fluticasone Propionate 1 spray 10/31/24 09:35 11/01/24 08:36 Fluticasone Nasal [place]dock 16gm Btl NASAL 1 spray BID [facility] Administration Albumin Human 25 g in 100 mls @ 60 mls/hr 10/31/24 10:00 11/01/24 10:19 Albumin IV Not Given Q8H [facility] Bumetanide 25 mg/ N/A 100 mls @ 8 mls/hr 10/31/24 18:00 11/01/24 05:46 IV 2 mg/hr .[id number] [facility] 8 mls/hr 2 MG/HR Administration Dopamine HCl/Dextrose 400 mg in 250 mls @ 11.081 mls/hr 10/31/24 22:00 10/31/24 22:25 Intropin Drip IV 3 mcg/kg/min CONT [facility] 11.08 mls/hr Protocol Administration 3 MCG/KG/MIN Insulin Human Lispro 0 unit 10/31/24 02:38 11/01/24 10:30 Insulin Lispro 100 Unit/1 Ml SUBCUT Not Given WM&BEDTIME [facility] Protocol Metolazone 10 mg 10/31/24 17:30 11/01/24 08:36 Metolazone 5 Mg Tablet PO 10 mg DAILY DHRUV Administration Metoprolol Tartrate 50 mg 10/31/24 09:00 10/31/24 09:31 Metoprolol Tartrate 50 Mg Tablet PO 50 mg On Hold: 10/31/24 20:56 BID@0900,2100 DHRUV Administration Pantoprazole Sodium 40 mg 10/31/24 09:00 11/01/24 08:[address] 40 Mg Tablet PO 40 mg DAILY DHRUV Administration PFSH Acute PFSH: Medical History (Updated 10/31/24 @ 01:25 by Sharon Ruiz MD) CKD (chronic kidney disease), stage IV CKD stage 3b, GFR 30-44 ml/min Diabetic nephropathy Squamous cell carcinoma of skin Nephrolithiasis History of ovarian cancer Chronic back pain Stage 3a chronic kidney disease (CKD) HLD (hyperlipidemia) Insulin dependent diabetes mellitus Essential hypertension Obesity Surgical History History of carpal tunnel release History of decompression of ulnar nerve H/O: hysterectomy Social History Smoking and tobacco/nicotine status: never used tobacco/nicotine Second hand smoke exposure: No Alcohol intake: current Alcohol intake frequency: few times a month Substance/Drug Use: never Additional social history: She wants full code as discussed with Tenzin and myself 10/17/2024 by Derian Hsieh MD Caregiver/support person: No Lives independently: No Household members: spouse Marital status: Number of children: 1 service: No Current occupational status: unemployed Current occupational exposures/hazards: No 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 Pets and animals: No Do you think of yourself as: Straight/Heterosexual Current gender identity: Female Vitals/I&O/Wt Last Vital Signs Temp 98.5 F 11/01/24 08:30 Pulse 74 11/01/24 10:30 Resp 32 H 11/01/24 10:30 BP 165/83 11/01/24 10:30 Pulse Ox 91 11/01/24 10:30 O2 Del Method Nasal Cannula 11/01/24 10:30 O2 Flow Rate 4 11/01/24 10:30 10/31/24 11/01/24 11/01/24 22:59 06:59 14:59 Intake Total 350 / 1310 193.867 / 1503.867 Output Total 150 / 475 1700 / 2175 Balance 200 / 835 -1506.133 / -671.133 Weight last 48 hrs Weight 220 lb 7.396 oz Weight 217 lb 2.485 oz Weight 217 lb 2.485 oz Weight 190 lb Physical Exam Const: COMMON NORMALS: no acute distress, patient oriented x3 and alert Resp: EFFORT & INSPECTION: Yes abnormal respiratory pattern Neuro: COMMON NORMALS: patient oriented x3 SENSORIUM/ORIENTATION: Yes alert Urinary Catheter Management: Vazquez: Cath Placed During This Visit: yes Reason for Continuing Indwelling Catheter: Accurate Measurement of Urinary Output in Critically Ill Patients Urinary Catheter Date of Insertion: 10/30/24 Urinary Catheter Time of Insertion: 21:41 Data 11/01/24 05:12 11/01/24 04:23 Micro: Microbiology 10/30/24 22:41 Blood Culture - Preliminary Blood NEGATIVE TO DATE 10/30/24 22:34 Blood Culture - Preliminary Blood NEGATIVE TO DATE A&P Assessment and plan 1. Acute kidney injury superimposed on CKD: -- Need for emergent dialysis -- MANUELITO not responsive to medical treatments, worsened work of breathing increase O2 requirements -- Refuses blood products -- On Plavix currently, was on Eliquis yesterday am -- The risks, benefits, and alternatives were discussed with the patient and in detail. Risks included, but were not limited to, infection, bleeding, injury to vascular structures, bleeding complication risk increased due to Eliquis and Plavix, pooer wound healing, need for further procedures or major surgery, heart or lung complication, and even . -- If the patient has a bleeding complication, she does not take blood products, this further increases her risk for a serious complication. 2. Coronary artery disease: 3. Pleural effusion: 4. Hypoxic respiratory failure: 5. Acute heart failure with mildly reduced ejection fraction (HFmrEF): 6. Acute exacerbation of CHF (congestive heart failure): 7. Obesity: 8. Lower extremity edema: PDMP PDMP Reviewed: Not Reviewed Coding Level of Care Code Acute Code for [facility] Fwd Diagnoses Acute kidney injury superimposed on CKD N17.9; N18.9 Coronary artery disease I25.10 Pleural effusion J90 Hypoxic respiratory failure J96.91 Acute heart failure with mildly reduced ejection fraction (HFmrEF) I50.21 Acute exacerbation of CHF (congestive heart failure) I50.9 Obesity E66.9 Lower extremity edema R60.0
[2024-11-01 11:46] LABS: INR 1.08 (0.8-1.2); Prothrombin Time 14.80 SECONDS (12.1-14.9)
--- NOTE | 2024-11-01 12:29 | XRR_ITS ---
PROCEDURE INFORMATION: Exam: XR Chest Exam date and time: 11/01/2024 11:59 AM Age: 69 years old Clinical indication: Other vascular access device placement or adjustment; Central line, non-tunnelled; RT temp dialysis cath confirmation; Additional info: Dialysis line placement TECHNIQUE: Imaging protocol: Radiologic exam of the chest. Views: 1 view. COMPARISON: CT chest wo con [id number] 10/30/2024 9:53 PM FINDINGS: Tubes, catheters and devices: A right-sided central line has its tip in good position within the SVC. Lungs: Diffuse bilateral pulmonary infiltrates are noted. Pleural spaces: Small bilateral pleural effusions are noted. Heart/Mediastinum: Moderate cardiomegaly is noted. Bones/joints: Unremarkable. XR/XR chest 1V portable [id number] IMPRESSION: 1. Good central line positioning with no complication noted 2. Pulmonary edema has worsened over the past 2 days
[2024-11-01] MEDS: heparin, porcine 1,000 unit/mL INJ 10 mL 1000 UNIT IV (12:30)
[2024-11-01] MEDS: heparin, porcine 1,000 unit/mL INJ 10 mL 10000 UNIT INTRACATH (12:30)
--- NOTE | 2024-11-01 12:44 | PC.NURSE ---
Time out performed with Dr Bear, this nurse and nursing care partner at 1136, Dialysis catheter placement. Patient and her have been extensively educated by both Dr Bear and Dr West of risks verses benefits of procedure, consent signed by patients . Patient experienced a few runs of V-Tach which were printed and added to patients chart, also patient had bradycardia to 40 and converted to SR from A-fib during procedure. Dr. Lake called and notified that dialysis line is in place and that patient does not want to receive blood products, orders for albumen canceled at that time.
--- NOTE | 2024-11-01 13:06 | P.PCN_ITS ---
Procedure Note: Date of procedure: 11/01/24 Pre-op diagnosis: Need for dialysis Post-op diagnosis: same Procedure Performed: IJ dialysis catheter Procedure: -- Prior to the procedure, the risks, be nefits can alternatives were discussed with the patient and her in detail. Risks included, but were not limited to, infection, bleeding, injury to vascular structures, bleeding complication risk increased due to Eliquis and Plavix, pooer wound healing, need for further procedures or major surgery, heart or lung complication, and even . -- If the patient has a bleeding complic ation, she does not take blood products, this further increases her risk for a serious complication. The procedure was performed at bedside in the ICU. After informed consent was obtained and a timeout was performed, the neck was prepped and draped in the usual sterile fashion. Local anesthetic was infiltrated within the skin and subcutaneous tissues at the proposed venipuncture site utilizing ultrasound guidance. An 18-gauge introducer needle was placed within the right internal jugular vein utilizing ultrasound guidance, with a flash of venous blood noted. Initially, the guidewire did not threaded easily into the vein. Direct pressure was held at the site. The 18-gauge introducer needle was then placed within the right internal jugular vein more laterally under ultrasound guidance, with a flash of venous blood noted, and the guidewire did threaded easily into the vein. Ultrasound demonstrated the wire within the right internal jugular vein. A skin ita was made at the wire exit point in the right neck. Sequential dilators were threaded easily over the guidewire. The 16 cm double-lumen trialysis catheter, which had been flushed with sterile saline prior, was advanced over the guidewire utilizing Seldinger technique. The guidewire was removed. Each of the lumens flushed and aspirated easily with venous blood. The clips were clipped and the caps were placed. The catheter was sutured in place and an antibiotic disc and sterile dressing were placed over top. A post procedure chest x-ray was performed, verifying the tip of the double- lumen trialysis catheter at the atriocaval junction and no pneumothorax per my interpretation. XR/XR chest 1V portable [id number] IMPRESSION: 1. Good central line positioning with no complication noted 2. Pulmonary edema has worsened over t he past 2 days Estimated blood loss (mL): 5 Condition: stable Coding Level of Care Code Acute Code for [facility] Fwd
--- NOTE | 2024-11-01 13:40 | ECG_ITS ---
[facility]: 2024[facility]01 Pat Name: Sandra Lemus Department: Room: [facility] Gender: Female Dope Sprayer: : 1955 Requested By: Pablo West Order Number: [id number] Jhon MD: Becca Navarro M.D. Measurements Intervals [place] Rate: 114 P: 0 AR: 0 QRS: -1 QRSD: 98 T: 92 QT: 345 QTc: 477 Interpretive Statements ATRIAL FIBRILLATION WITH RAPID VENTRICULAR RESPONSE ANTEROSEPTAL MYOCARDIAL INFARCTION , OF INDETERMINATE AGE [40+ ms Q WAVE IN V1-V4] Compared to ECG 10/31/2024 20:20:08 Sinus rhythm no longer present First degree AV block no longer present Myocardial infarct finding still present Electronically Signed On 11-04-2024 10:11:07 CDT by Becca Navarro M.D. [email or web address]
--- NOTE | 2024-11-01 13:58 | PC.NURSE ---
Dr West notified of patient bradycardia into 30's then in A-fib. EKG ordered.
--- NOTE | 2024-11-01 15:12 | P.PN_ITS ---
Vitals/I&O/Wt Last Vital Signs Temp 98.5 F 11/01/24 08:30 Pulse 103 H 11/01/24 13:00 Resp 15 11/01/24 13:00 BP 161/75 11/01/24 13:00 Pulse Ox 90 11/01/24 13:00 O2 Del Method Nasal Cannula 11/01/24 13:00 O2 Flow Rate 4 11/01/24 10:30 11/01/24 11/01/24 11/01/24 06:59 14:59 22:59 Intake Total 193.867 / 1503.867 93.6 / 93.6 Output Total 1700 / 2175 Balance -1506.133 / -671.133 93.6 / 93.6 Weight last 48 hrs Weight 100 kg Weight 98.5 kg Weight 98.5 kg Weight 86.183 kg Physical Exam 2 Narrative: General: Dyspneic and tachypneic in conversation, ill-appearing, on nasal cannula 3 L/min HEENT: PERRLA, pupils bilaterally equal and reactive, pallors not present Chest: Crackles to auscultation bilaterally lower lobes CVS: S1-S2 regular, no murmurs, no tachycardia, no gallops, no rubs Abdomen: Soft, nontender, no organomegaly, bowel sounds present Neuro: No focal deficits, no facial deformity, AO x3, power 5/5 in all limbs Extremities: Bilateral lower extremity pitting edema Urinary Catheter Management: Vazquez: Cath Placed During This Visit: yes Reason for Continuing Indwelling Catheter: Accurate Measurement of Urinary Output in Critically Ill Patients Urinary Catheter Date of Insertion: 10/30/24 Urinary Catheter Time of Insertion: 21:41 Data 11/01/24 05:12 11/01/24 04:23 Micro: Microbiology 10/30/24 21:30 Urine Culture - Preliminary Urine,Clean Catch Yeast species 10/30/24 22:41 Blood Culture - Preliminary Blood NEGATIVE TO DATE 10/30/24 22:34 Blood Culture - Preliminary Blood NEGATIVE TO DATE A&P Assessment and plan 1. Hypoxic respiratory failure: 2. Acute exacerbation of CHF (congestive heart failure): 3. Acute kidney injury superimposed on CKD: 4. Paroxysmal atrial fibrillation: 5. Bradycardia with 31-40 beats per minute: 6. Sinus pause: 7. UTI (urinary tract infection): UA with 2+ leukocyte Estrace, WBC greater than 100, squamous epithelial cells 5- 10, specimen may not be a clean-catch. For now we will continue ceftriaxone 1 g IV every 24 hours as started in the ER while awaiting urine culture results. Follow-up blood cultures. 8. Hyperkalemia: Resolved after initial treatment in the ER. Continue to monitor. If needed will add Kayexalate and calcium gluconate. 9. Type 2 diabetes mellitus: Recent A1c of 8.8. Continue with insulin sliding scale at moderate dose protocol. Takes Lantus 22 units at home. For now we will hold off p.o. depending on insulin requirement in next 24 hours can restart Lantus. 10. Pleural effusion: Bilateral pleural effusions, noted to be moderate on CT of her chest. She required bilateral thoracentesis on her most recent admission. Patient is currently on Plavix 75 mg daily which cannot be interrupted for thoracentesis given her recent stents. Additionally on Eliquis 5 mg p.o. twice daily. For now we will continue anticoagulation and Plavix and assess for improvement with IV diuresis and HD (if progresses onto this) 11. Coronary artery disease: Status post recent stents as noted above placed on October 27, 2024. Currently declines any chest pain. Continue with DAPT, ezetimibe for now. Appreciate recent A1c and lipid panel along with echocardiogram. 12. Mild cognitive impairment with memory loss: 13. Transfusion of blood product declined due to amish reason: Discussed in detail with the patient. She declines any kind of blood products including platelets, FFP or albumin. We did discuss that she is at a high risk of bleeding specially with multiple procedures given she was recently on Eliquis, currently on heparin drip and Plavix which would need to be continued given recent PCI. Both patient and spouse at bedside verbalized understanding. Plan: 69-year-old lady with known CKD with baseline creatinine most recently ranging between 2.5 to 3.3, most recently at 3.6 on recent hospital discharge on October 28, 2024. Recent complicated hospital stay for CAD, PCI with 3 stents as noted above, bilateral thoracentesis and CHF exacerbation for which she was treated with IV diuresis. Presents from halfway with worsening dyspnea, lower extremity edema, and generalized anasarca. Her acute hypoxemic respiratory failure is currently multifactorial related to acute on chronic systolic CHF exacerbation, MANUELITO on CKD and bilateral pleural effusions. Acute hypoxic respiratory failure: Oxygen supplementation keeping saturation over 90%. Most likely in setting of congestive heart failure. Patient does have bilateral pleural effusion. Recently had thoracentesis. For now we will try to avoid thoracentesis again given higher chance of empyema. Additionally patient is on Plavix. Appreciate chest x-ray showing worsening pulmonary edema. MANUELITO on CKD: Most likely AKIRA in setting of CKD. Patient did have cardiac angiogram recently. Associated with hyperkalemia and metabolic acidosis. Baseline creatinine seems to be around 3.2-3.6. Failed aggressive diuresis with Bumex drip. Appreciate nephrology recommendations. Patient was being counseled for possible dialysis as an outpatient by outpatient pediatric physiatrist. Plan for emergent dialysis for now. Patient is agreeable. Surgery has been consulted and temporary dialysis catheter was placed on 11/01. Dialysis as per nephrology team. Monitor BMP daily. Atrial fibrillation/sinus pause along with bradycardia: Most likely in setting of MANUELITO/uremia. Monitor electrolytes keeping potassium around 4, magnesium around 2. Continue with dopamine drip at fixed rate for now. Hold off on metoprolol. Will consult cardiology. Continue to monitor. Eliquis withheld for now. Will start on heparin drip. Patient most probably will need tunneled catheter placement going forward so for now we will continue with heparin drip. Acute on chronic decompensated systolic congestive heart failure: Echocardiogram done recently on 10/15 showed EF of 45 to 50% with mild MR. Fluid restriction to less than 1500 cc. Strict input output charting. Patient started on Bumex drip after poor response to IV Bumex yesterday along with 1 dose of oral metolazone 10 mg daily. Plan for negative ultrafiltration with hemodialysis today. Oxygen supplementation keeping saturation over 90%. Hypertension: Goal blood pressure less than 140/90 mmHg. Continue with home dose of amlodipine. Metoprolol withheld given sinus pause. IV hydralazine 10 mg every 6 hours as needed for systolic of more than 160 mmHg. Add oral hydralazine 50 mg 3 times daily to be withheld for a systolic of less than 130 mmHg. Uptitrate as per goal blood pressure. UTI: Follow blood culture, urine culture. For now continue with IV ceftriaxone. De-escalate as per culture sensitivities. Urine culture for now growing yeast. Will add fluconazole oral for 7-day course. Full code Renal dialysis diabetic diet SCD for DVT prophylaxis. Heparin drip will be sufficient for DVT prophylaxis Protonix for PUD prophylaxis PDMP PDMP Reviewed: Not Reviewed Attestations 2 Medical Necessity Statement*: Requires further hospitalization for management of MANUELITO on CKD requiring temporary dialysis, hypoxic respiratory failure in setting of congestive heart failure, sinus pauses with bradycardia in setting of paroxysmal A-fib Critical Care Time: The high probability of a clinically significant, sudden or life threatening deterioration of the patient's [cardiac, pulmonary, renal] system(s) required my full and direct attention, intervention and personal management. The critical care time is as shown. This time is in addition to time spent performing any reported procedures but includes the following: [x] Data and vital sign review and interpretation [x] Patient assessment, examination and intervention [x] Documentation [x] Medication orders and management Critical Care Time (min): 70 Coding Level of Care Code Critical Care >/= 30 minutes Critical care time (in minutes): 70 The high probability of a clinically significant, sudden or life threatening deterioration, as referenced in this documentation, required my full and direct attention, intervention and personal management. The critical care time shown is in addition to time spent performing any reported separately billable procedures and includes the following: [x] Data and vital sign review and interpretation [x ] Patient assessment, examination and intervention [x] Medication orders and management [x] Patient/Family updates as able [x] Care Coordination and Documentation. Diagnoses Hypoxic respiratory failure J96.91 Acute exacerbation of CHF (congestive heart failure) I50.9 Acute kidney injury superimposed on CKD N17.9; N18.9 Paroxysmal atrial fibrillation I48.0 Bradycardia with 31-40 beats per minute R00.1 Sinus pause I45.5 UTI (urinary tract infection) N39.0 Hyperkalemia E87.5 Type 2 diabetes mellitus E11.9 Pleural effusion J90 Coronary artery disease I25.10 Mild cognitive impairment with memory loss G31.84 Transfusion of blood product declined due to amish reason Z53.1
[2024-11-01] MEDS: heparin drip 25,000 UNIT/500 ML PREMIX 56 UNIT IV (15:16)
--- NOTE | 2024-11-01 16:12 | PC.NURSE ---
Verbal order from Dr. West to titrate Dopamine drip to 2mcg/kg/min. See MAR.
[2024-11-01 21:11] LABS: Partial Thromboplastin Time 69.7 SECONDS (23.9-36.7)
--- NOTE | 2024-11-01 21:22 | PC.NURSE ---
Heparin drip going at 28 upon arrival of shift. see MAR.
[2024-11-01] MEDS: cefTRIAXone 1,000 mg SDV 1000 MG IVP (21:38)
[2024-11-01] MEDS: DOPamine drip 400 MG/250 ML PREMIX 7.39 MG IV (22:42)
[2024-11-02] VITALS (51 sets, daily range): BP systolic 80–158; BP diastolic 59–108; PULSE 63–125; RESP 11–22; TEMP 36.7–37.1; O2SAT 84–96
[2024-11-02 04:32] LABS: Hematocrit 31.2 % (36-47); Hemoglobin 10.00 g/dL (11.27-16.99); Mean Corpuscular HGB Conc 32.1 g/dL (30-55); Mean Corpuscular Hemoglobin 27.9 pg (27-33); Mean Corpuscular Volume 86.9 fl (85-98); Nucleated Red Blood Cells % 0 %; Platelet Count 305 10^3/cmm (157-399); Red Blood Count 3.59 10^6/uL (3.85-5.65); White Blood Count 11.45 10^3/uL (3.29-11.43)
[2024-11-02 04:55] LABS: Alanine Aminotransferase 11 U/L (0-33); Albumin Level 3.2 g/dL (3.5-5.2); Alkaline Phosphatase 113 U/L (35-105); Anion Gap 18.8 (5-19); Aspartate Amino Transferase 10 U/L (0-32); Blood Urea Nitrogen 52 mg/dL (8-23); Calcium 9.0 mg/dL (8.5-10.5); Carbon Dioxide 25 mmol/L (22-29); Chloride 100 mmol/L (98-107); Creatinine Clr Calc Pharmacy 12.7694; Globulin 3.4 g/dL (1.3-4.6); Glucose 133 mg/dL (65-115); Osmolality Calculated 306 mOsm/kg (285-295); Potassium 3.8 mmol/L (3.5-5.1); Sodium 140 mmol/L (136-145); Total Protein 6.6 g/dL (6.6-8.7)
[2024-11-02 04:56] LABS: Partial Thromboplastin Time 77.1 SECONDS (23.9-36.7)
[2024-11-02] MEDS: heparin drip 25,000 UNIT/500 ML PREMIX 26 UNIT IV (07:17)
[2024-11-02] MEDS: fluticasone nasal spray 16gm Btl 1 SPRAY NASAL (08:17)
--- NOTE | 2024-11-02 09:46 | PM.PN ---
Subjective Subjective: s/p HD yesterday Medications: Reviewed: Yes Vitals/I&O/Wt Last Vital Signs Temp 98.0 F 11/02/24 08:30 Pulse 66 11/02/24 08:30 Resp 18 11/02/24 08:30 BP 149/83 11/02/24 08:30 Pulse Ox 84 L 11/02/24 08:30 O2 Del Method Nasal Cannula 11/02/24 08:30 O2 Flow Rate 3 11/01/24 18:00 11/01/24 11/02/24 11/02/24 22:59 06:59 14:59 Intake Total 1944.941 / 2038.541 425.133 / 2463.674 118 / 118 Output Total 3706 / 4706 2900 / 7606 550 / 550 Balance -1761.059 / -2667.459 -2474.867 / -5142.326 -432 / -432 Weight last 48 hrs Weight 90 kg Weight 95.5 kg Weight 100 kg Physical Exam Narrative: awake , alert , no distress PEERLA S1S2 RRR per report Lung with decreased breath sounds and + crackles Abd soft , non tender 1+ LE edema Urinary Catheter Management: Vazquez: Cath Placed During This Visit: yes Reason for Continuing Indwelling Catheter: Accurate Measurement of Urinary Output in Critically Ill Patients Urinary Catheter Date of Insertion: 10/30/24 Urinary Catheter Time of Insertion: 21:41 Data 11/02/24 03:30 11/02/24 03:30 Micro: Microbiology 10/30/24 21:30 Urine Culture - Preliminary Urine,Clean Catch Yeast species A&P Assessment and plan 1. Acute kidney injury superimposed on CKD: 2. CKD (chronic kidney disease), stage IV: 1. Acute on chronic kidney disease: Creatinine is in the 1.3-2 range chronically and followed by [facility], presumed secondary to diabetic nephropathy. Creatinine during recent admision was in 3 range . Now presents with severe MANUELITO with Cr 6.0 and volume overload likely contrast nephropathy -no response to diuretics , O2 requirement increased - s/p temporary HD catheter placement and HD done 11/01 , plan for HD again today UA with 4+ protein and 1+ blood. Patient likely has diabetic nephropathy with nephrotic range proteinuria. - recent renal US -no hydronephrosis and normal-sized kidneys. 2. Congestive cardiac failure, recent [facility] 3. Hypertension: Continue current meds 4. Anemia: Hemoglobin 10.5, monitor Seen and examined with the nurse using audiovisual equipment. The patient consents to telehealth. Plan: Anticoagulation and diuretics. for cardiac cath PDMP PDMP Reviewed: Not Reviewed Attestations Medical Necessity Statement*: per medicine Coding Level of Care Code Acute Code for Chg Fwd Diagnoses Acute kidney injury superimposed on CKD N17.9; N18.9 CKD (chronic kidney disease), stage IV N18.4
[2024-11-02 11:17] LABS: Partial Thromboplastin Time 102.0 SECONDS (23.9-36.7)
--- NOTE | 2024-11-02 11:37 | P.PN_ITS ---
Subjective 2 Subjective: No acute events overnight. Patient has remained hemodynamically stable. Did have 1 episode of sinus pause overnight. Today morning heart rate have remained around 100?110. Blood pressure stable. Underwent dialysis yesterday. Urine output of around 3 L overnight. Remains on 3 L of oxygen supplementation. Complaining that she is feeling tired. Seen with spouse at bedside. Systolics Medications: Reviewed: Yes Vitals/I&O/Wt Last Vital Signs Temp 98.0 F 11/02/24 08:30 Pulse 110 H 11/02/24 10:00 Resp 12 11/02/24 10:00 BP 151/69 11/02/24 10:00 Pulse Ox 91 11/02/24 10:00 O2 Del Method Nasal Cannula 11/02/24 10:00 O2 Flow Rate 3 11/02/24 10:00 11/01/24 11/02/24 11/02/24 22:59 06:59 14:59 Intake Total 1944.941 / 2038.541 425.133 / 2463.674 202.862 / 202.862 Output Total 3706 / 4706 2900 / 7606 550 / 550 Balance -1761.059 / -2667.459 -2474.867 / -5142.326 -347.138 / -347.138 Weight last 48 hrs Weight 90 kg Weight 95.5 kg Weight 100 kg Physical Exam 2 Narrative: General: AO x 3, sick appearing, tired anyway. Less tachypneic HEENT: PERRLA, pupils bilaterally equal and reactive, pallors not present Chest: Normal vesicular breath sounds over lung monte, crackles at mid chest bilaterally, decreased air entry bilaterally in lower zone CVS: S1-S2 regular, no murmurs, no tachycardia, no gallops, no rubs Abdomen: Soft, nontender, no organomegaly, bowel sounds present Neuro: No focal deficits, no facial deformity, AO x3, power 5/5 in all limbs Extremities: Bilateral lower extremity pitting edema Urinary Catheter Management: Vazquez: Cath Placed During This Visit: yes Reason for Continuing Indwelling Catheter: Accurate Measurement of Urinary Output in Critically Ill Patients Urinary Catheter Date of Insertion: 10/30/24 Urinary Catheter Time of Insertion: 21:41 Data 11/02/24 03:30 11/02/24 03:30 Micro: Microbiology 10/30/24 21:30 Urine Culture - Preliminary Urine,Clean Catch Yeast species A&P Assessment and plan 1. Hypoxic respiratory failure: 2. Acute exacerbation of CHF (congestive heart failure): 3. Acute kidney injury superimposed on CKD: 4. Paroxysmal atrial fibrillation: 5. Bradycardia with 31-40 beats per minute: 6. Sinus pause: 7. UTI (urinary tract infection): UA with 2+ leukocyte Estrace, WBC greater than 100, squamous epithelial cells 5- 10, specimen may not be a clean-catch. For now we will continue ceftriaxone 1 g IV every 24 hours as started in the ER while awaiting urine culture results. Follow-up blood cultures. 8. Hyperkalemia: Resolved after initial treatment in the ER. Continue to monitor. If needed will add Kayexalate and calcium gluconate. 9. Type 2 diabetes mellitus: Recent A1c of 8.8. Continue with insulin sliding scale at moderate dose protocol. Takes Lantus 22 units at home. For now we will hold off p.o. depending on insulin requirement in next 24 hours can restart Lantus. 10. Pleural effusion: Bilateral pleural effusions, noted to be moderate on CT of her chest. She required bilateral thoracentesis on her most recent admission. Patient is currently on Plavix 75 mg daily which cannot be interrupted for thoracentesis given her recent stents. Additionally on Eliquis 5 mg p.o. twice daily. For now we will continue anticoagulation and Plavix and assess for improvement with IV diuresis and HD (if progresses onto this) 11. Coronary artery disease: Status post recent stents as noted above placed on October 27, 2024. Currently declines any chest pain. Continue with DAPT, ezetimibe for now. Appreciate recent A1c and lipid panel along with echocardiogram. 12. Mild cognitive impairment with memory loss: 13. Transfusion of blood product declined due to lutheran reason: Discussed in detail with the patient. She declines any kind of blood products including platelets, FFP or albumin. We did discuss that she is at a high risk of bleeding specially with multiple procedures given she was recently on Eliquis, currently on heparin drip and Plavix which would need to be continued given recent PCI. Both patient and spouse at bedside verbalized understanding. Plan: 69-year-old lady with known CKD with baseline creatinine most recently ranging between 2.5 to 3.3, most recently at 3.6 on recent hospital discharge on October 28, 2024. Recent complicated hospital stay for CAD, PCI with 3 stents as noted above, bilateral thoracentesis and CHF exacerbation for which she was treated with IV diuresis. Presents from retirement with worsening dyspnea, lower extremity edema, and generalized anasarca. Her acute hypoxemic respiratory failure is currently multifactorial related to acute on chronic systolic CHF exacerbation, MANUELITO on CKD and bilateral pleural effusions. Acute hypoxic respiratory failure: Oxygen supplementation keeping saturation over 90%. Most likely in setting of congestive heart failure. Patient does have bilateral pleural effusion. Recently had thoracentesis. For now we will try to avoid thoracentesis again given higher chance of empyema. Additionally patient is on Plavix. Appreciate chest x-ray showing worsening pulmonary edema. MANUELITO on CKD: Most likely AKIRA in setting of CKD. Patient did have cardiac angiogram recently. Associated with hyperkalemia and metabolic acidosis. Baseline creatinine seems to be around 3.2-3.6. Failed aggressive diuresis with Bumex drip. Appreciate nephrology recommendations. Patient was being counseled for possible dialysis as an outpatient by outpatient certified nurse midwife. Plan for emergent dialysis for now. Patient is agreeable. Surgery has been consulted and temporary dialysis catheter was placed on 11/01. Dialysis as per nephrology team. Monitor BMP daily. Atrial fibrillation/sinus pause along with bradycardia: Most likely in setting of MANUELITO/uremia. Monitor electrolytes keeping potassium around 4, magnesium around 2. Continue with dopamine drip at fixed rate for now. Hold off on metoprolol. Will consult cardiology. Continue to monitor. Eliquis withheld for now. Will start on heparin drip. Patient most probably will need tunneled catheter placement going forward so for now we will continue with heparin drip. Acute on chronic decompensated systolic congestive heart failure: Echocardiogram done recently on 10/15 showed EF of 45 to 50% with mild MR. Fluid restriction to less than 1500 cc. Strict input output charting. Patient started on Bumex drip after poor response to IV Bumex yesterday along with 1 dose of oral metolazone 10 mg daily. Plan for negative ultrafiltration with hemodialysis today. Oxygen supplementation keeping saturation over 90%. Hypertension: Goal blood pressure less than 140/90 mmHg. Continue with home dose of amlodipine. Metoprolol withheld given sinus pause. IV hydralazine 10 mg every 6 hours as needed for systolic of more than 160 mmHg. Add oral hydralazine 50 mg 3 times daily to be withheld for a systolic of less than 130 mmHg. Uptitrate as per goal blood pressure. UTI: Follow blood culture, urine culture. For now continue with IV ceftriaxone. De-escalate as per culture sensitivities. Urine culture for now growing yeast. Will add fluconazole oral for 7-day course. Full code Renal dialysis diabetic diet SCD for DVT prophylaxis. Heparin drip will be sufficient for DVT prophylaxis Protonix for PUD prophylaxis. Plan for the day: Hypoxic respiratory failure seems to be improving. Congestive heart failure improving with good urine output and dialysis yesterday. Appreciate nephrology recommendations. Will plan for 1 more session of dialysis today. Monitor urine output. Hold off on diuretic for now. Repeat BMP in afternoon. Will replete electrolytes accordingly. For now plan will be for 1 more session of dialysis today and then holding off on dialysis depending on hemodynamics and respiratory status. If patient continues to do well and creatinine tends to come back to her baseline can hold off on tunneled catheter placement. Continue with home dose of Plavix and aspirin. Eliquis on hold for now given possibility of tunneled catheter placement. Follow-up cultures. Continue with IV ceftriaxone for now to finish a 5-day course. On fluconazole for yeast in urine culture. Heart rate mildly elevated. No further episodes of pauses since last night. For now we will hold off on dopamine drip and monitor. Continue to hold off on metoprolol for now. Out of bed to chair. PDMP PDMP Reviewed: Not Reviewed Attestations 2 Medical Necessity Statement*: Requires further hospitalization for management of acute hypoxic respiratory failure in setting of acute decompensated systolic heart failure due to MANUELITO on CKD requiring temporary dialysis Critical Care Time: The high probability of a clinically significant, sudden or life threatening deterioration of the patient's [cardiac, renal, pulmonary] system(s) required my full and direct attention, intervention and personal management. The critical care time is as shown. This time is in addition to time spent performing any reported procedures but includes the following: [x] Data and vital sign review and interpretation [x] Patient assessment, examination and intervention [x] Documentation [x] Medication orders and management Critical Care Time (min): 65 Coding Level of Care Code Critical Care >/= 30 minutes Critical care time (in minutes): 65 The high probability of a clinically significant, sudden or life threatening deterioration, as referenced in this documentation, required my full and direct attention, intervention and personal management. The critical care time shown is in addition to time spent performing any reported separately billable procedures and includes the following: [x] Data and vital sign review and interpretation [x ] Patient assessment, examination and intervention [x] Medication orders and management [x] Patient/Family updates as able [x] Care Coordination and Documentation. Diagnoses Hypoxic respiratory failure J96.91 Acute exacerbation of CHF (congestive heart failure) I50.9 Acute kidney injury superimposed on CKD N17.9; N18.9 Paroxysmal atrial fibrillation I48.0 Bradycardia with 31-40 beats per minute R00.1 Sinus pause I45.5 UTI (urinary tract infection) N39.0 Hyperkalemia E87.5 Type 2 diabetes mellitus E11.9 Pleural effusion J90 Coronary artery disease I25.10 Mild cognitive impairment with memory loss G31.84 Transfusion of blood product declined due to lutheran reason Z53.1
[2024-11-02] MEDS: heparin, porcine 1,000 unit/mL INJ 10 mL 1000 UNIT IV (11:50)
[2024-11-02] MEDS: heparin, porcine 1,000 unit/mL INJ 10 mL 10000 UNIT INTRACATH (14:54)
[2024-11-02 16:36] LABS: Anion Gap 17.5 (5-19); Blood Urea Nitrogen 33 mg/dL (8-23); Calcium 8.6 mg/dL (8.5-10.5); Carbon Dioxide 25 mmol/L (22-29); Chloride 101 mmol/L (98-107); Creatinine Clr Calc Pharmacy 17.0942; Glucose 156 mg/dL (65-115); Osmolality Calculated 300 mOsm/kg (285-295); Potassium 3.5 mmol/L (3.5-5.1); Sodium 140 mmol/L (136-145)
[2024-11-02 18:23] LABS: Partial Thromboplastin Time 57.1 SECONDS (23.9-36.7)
--- NOTE | 2024-11-02 18:32 | PC.NURSE ---
Shift note: Patient off dopamine drip today per verbal order. No pauses or bradycardia this shift. Patient had hypotension during dialysis. Hydralizine not given at 1500 due to soft pressures. Patient up to chair after dialysis. C/O discomfort but agreed to stay till after evening meal, approximately 3 hours up to chair. Pressure injury stage one discovered at beginning of shift on right buttock, Patient educated on importance of turning and not removing pillows that nursing staff place to relieve pressure. Patient and family have continued to remove pillows used for positioning. She remains on 3L NC throughout shift saturating as documented. 1400ml urine out. 836ml in orally.
[2024-11-02] MEDS: cefTRIAXone 1,000 mg SDV 1000 MG IVP (21:35)
[2024-11-03] VITALS (49 sets, daily range): BP systolic 100–159; BP diastolic 56–107; PULSE 63–124; RESP 4–24; TEMP 36.7–37.1; O2SAT 81–98
[2024-11-03 00:53] LABS: Partial Thromboplastin Time 47.4 SECONDS (23.9-36.7)
[2024-11-03] MEDS: heparin 5,000 unit/mL INJ 1 mL IVP (01:05)
[2024-11-03 05:11] LABS: Hematocrit 31.6 % (36-47); Hemoglobin 10.20 g/dL (11.27-16.99); Mean Corpuscular HGB Conc 32.3 g/dL (30-55); Mean Corpuscular Hemoglobin 28.5 pg (27-33); Mean Corpuscular Volume 88.3 fl (85-98); Nucleated Red Blood Cells % 0 %; Platelet Count 257 10^3/cmm (157-399); Red Blood Count 3.58 10^6/uL (3.85-5.65); White Blood Count 9.47 10^3/uL (3.29-11.43)
[2024-11-03 05:33] LABS: Alanine Aminotransferase 10 U/L (0-33); Albumin Level 2.9 g/dL (3.5-5.2); Alkaline Phosphatase 98 U/L (35-105); Anion Gap 15.7 (5-19); Aspartate Amino Transferase 8 U/L (0-32); Blood Urea Nitrogen 37 mg/dL (8-23); Calcium 8.8 mg/dL (8.5-10.5); Carbon Dioxide 27 mmol/L (22-29); Chloride 102 mmol/L (98-107); Creatinine Clr Calc Pharmacy 14.4111; Globulin 3.2 g/dL (1.3-4.6); Glucose 128 mg/dL (65-115); Osmolality Calculated 302 mOsm/kg (285-295); Potassium 3.7 mmol/L (3.5-5.1); Sodium 141 mmol/L (136-145); Total Protein 6.1 g/dL (6.6-8.7)
--- NOTE | 2024-11-03 06:37 | P.PN_ITS ---
Subjective 2 Subjective: The patient was seen and examined. Patient tenderness better after dialysis for the last 2 days. She is off of dopamine. She is urinating edema is improving. Per the nurse her heart rate converted to normal sinus rhythm. She continues to have a Vazquez catheter. Medications: Reviewed: Yes Medication Review Details: Current Medications Acetaminophen (Acetaminophen 325 Mg Tablet) 650 mg PO Q6H PRN PRN Reason: Mild/Mod Pain Or Temp >/= 101 Albuterol Sulfate (Albuterol 2.5 Mg/3 Ml Neb) 2.5 mg INHALATION Q6H PRN PRN Reason: wheezing Amlodipine Besylate (Amlodipine 5 Mg Tablet) 5 mg PO DAILY [facility] Last Admin: 11/02/24 08:15 Dose: 5 mg Aspirin (Aspirin 81 Mg Ec Tablet) 81 mg PO DAILY [facility] Last Admin: 11/02/24 08:15 Dose: 81 mg Atropine Sulfate (Atropine 0.1 Mg/Ml Syr 10 Ml) 0.5 mg IVP ONCE PRN PRN Reason: bradycardia Ceftriaxone Sodium (Ceftriaxone 1,000 Mg Sdv) 1,000 mg IVP Q24H [facility]; Protocol Last Admin: 11/02/24 21:35 Dose: 1,000 mg Clopidogrel Bisulfate (Clopidogrel 75 Mg Tablet) 75 mg PO DAILY [facility] Last Admin: 11/02/24 08:15 Dose: 75 mg Ezetimibe (Ezetimibe 10 Mg Tablet) 10 mg PO DAILY [facility] Last Admin: 11/02/24 08:15 Dose: 10 mg Fluconazole (Fluconazole 100 Mg Tablet) 200 mg PO [facility] Fluconazole (Fluconazole 100 Mg Tablet) 100 mg PO [facility] Stop: 11/08/24 20:59 Last Admin: 11/02/24 20:42 Dose: 100 mg Fluticasone Propionate (Fluticasone Nasal Prompton 16gm Btl) 1 spray NASAL BID [facility] Last Admin: 11/02/24 17:25 Dose: Not Given Glucagon (Glucagon 1 Mg/Ml Kit 1 Ml) 1 mg IM ONCE PRN; Protocol PRN Reason: Adult Acute Hypoglycemia Nursing Prot. Heparin Sodium (Porcine) (Heparin 5,000 Unit/Ml Inj 1 Ml) 0 unit IVP PRN PRN; Protocol PRN Reason: Heparin Weight Based Protocol -Subsequent Bolus Last Admin: 11/03/24 01:05 Dose: 2,000 unit Hydralazine HCl (Hydralazine 20 Mg/Ml Inj 1 Ml) 10 mg IVP Q4H PRN PRN Reason: SBP More than 160 mmhg Hydralazine HCl (Hydralazine 50 Mg Tablet) 50 mg PO TID [facility] Last Admin: 11/02/24 20:44 Dose: Not Given Dextrose (D5w) 500 mls @ 0 mls/hr IV ONCE PRN; Protocol PRN Reason: Adult Acute Hypoglycemia Prot Dextrose (D10w) 125 mls @ 750 mls/hr IV PRN PRN; Protocol PRN Reason: Adult Acute Hypoglycemia Nursing Protocol Dextrose (D10w) 250 mls @ 1,000 mls/hr IV PRN PRN; Protocol PRN Reason: Adult Acute Hypoglycemia Nursing Protocol Dopamine HCl/Dextrose (Intropin Drip) 400 mg in 250 mls @ 11.081 mls/hr IV CONT DHRUV; Protocol Last Admin: 11/03/24 04:14 Dose: Not Given Heparin Sodium/Sodium Chloride (Heparin Drip) 25,000 unit in 500 mls @ 0 mls/hr IV CONT DHRUV; Protocol Last Titration: 11/03/24 01:00 Dose: 8 unit/kg/hr, 16 mls/hr Sodium Chloride (Sodium Chloride 0.9%) 1,000 mls @ 0 mls/hr IV .Q0M PRN PRN Reason: hypotension or symptomatic Albumin Human (Albumin) 12.5 gm in 50 mls @ 60 mls/hr IV PRN PRN PRN Reason: Hypotension and/or symptomatic Insulin Human Lispro (Insulin Lispro 100 Unit/1 Ml) 0 unit SUBCUT WM&BEDTIME [facility]; Protocol Last Admin: 11/02/24 20:38 Dose: 10 unit Metoprolol Tartrate (Metoprolol Tartrate 50 Mg Tablet) 50 mg PO BID@0900,2100 [facility] On Hold: 10/31/24 20:56 Last Admin: 10/31/24 09:31 Dose: 50 mg Ondansetron HCl (Ondansetron 2 Mg/Ml Sdv 2 Ml) 4 mg IVP Q8H PRN PRN Reason: vomiting, or N/V if npo Pantoprazole Sodium (Pantoprazole Dr 40 Mg Tablet) 40 mg PO DAILY [facility] Last Admin: 11/02/24 08:15 Dose: 40 mg Trazodone HCl (Trazodone 50 Mg Tablet) 50 mg PO BEDTIME PRN PRN Reason: INSOMNIA Vitals/I&O/Wt Last Vital Signs Temp 98.0 F 11/03/24 05:42 Pulse 69 11/03/24 05:00 Resp 13 11/03/24 05:00 BP 134/69 11/03/24 04:30 Pulse Ox 92 11/03/24 04:00 O2 Del Method Nasal Cannula 11/02/24 18:30 O2 Flow Rate 3 11/02/24 18:30 11/02/24 11/02/24 11/03/24 14:59 22:59 06:59 Intake Total 319.862 / 467.848 1030.633 / 1637.495 85.4 / 1722.895 Output Total 550 / 550 3584 / 4134 1550 / 5684 Balance -230.138 / -230.138 -2266.367 / -2496.505 -1464.6 / -3961.105 Weight last 48 hrs Weight 93.593 kg Weight 92.8 kg Weight 90 kg Weight 95.5 kg Physical Exam 2 Narrative: Patient is lying comfortable in bed. Patient was examined with the aid of A/V equipment with the aid of a nurse. Vital signs are stable. HEENT normocephalic atraumatic. Neck is supple. Right IJ dialysis catheter. Lungs improved air movement with dull bases. Heart is now regular. Abdomen is soft positive bowel sounds. Extremities have trace edema. Neuro awake alert oriented x 3. No asterixis Urinary Catheter Management: Vazquez: Cath Placed During This Visit: yes Reason for Continuing Indwelling Catheter: Accurate Measurement of Urinary Output in Critically Ill Patients Urinary Catheter Date of Insertion: 10/30/24 Urinary Catheter Time of Insertion: 21:41 Data 11/03/24 04:48 11/03/24 04:48 A&P Assessment and plan 1. Acute kidney injury superimposed on CKD: 2. CKD (chronic kidney disease), stage IV: 1. Acute on chronic kidney disease: Creatinine is in the 1.3-2 range chronically and followed by [facility], presumed secondary to diabetic nephropathy. Creatinine during recent admission was in 3 range . Now presents with severe MANUELITO with Cr 6.0 and volume overload likely contrast nephropathy - s/p temporary HD catheter placement and HD done 11/01 , november 02 2024. Will hold dialysis today and monitor for renal recovery. UA with 4+ protein and 1+ blood. Patient likely has diabetic nephropathy with nephrotic range proteinuria. - recent renal US -no hydronephrosis and normal-sized kidneys. 2. Coronary artery disease heart failure with moderately reduced EF. Patient is status post recent cardiac catheterization and stents. Patient needs to remain on Plavix. 3. Anemia: Hemoglobin 10.2- monitor bp stable Seen and examined with the nurse using audiovisual equipment. The patient consents to telehealth. Plan: see above PDMP PDMP Reviewed: Not Reviewed Attestations 2 Medical Necessity Statement*: manuelito on ckd Time Spent in Patient Care: 16 - 35 minutes (>than 50% of time sp ent in counselling and/or direct pt care on unit) . Coding Level of Care Code Acute Code for g Fwd Diagnoses Acute kidney injury superimposed on CKD N17.9; N18.9 CKD (chronic kidney disease), stage IV N18.4
[2024-11-03 07:23] LABS: Partial Thromboplastin Time 58.0 SECONDS (23.9-36.7)
[2024-11-03] MEDS: fluticasone nasal spray 16gm Btl 1 SPRAY NASAL (08:39)
[2024-11-03 09:59] LABS: Uric Acid 5.2 mg/dL (2.4-5.7)
--- NOTE | 2024-11-03 13:34 | P.PN_ITS ---
Subjective 2 Subjective: seen today sitting up in chair -9L since admission Vitals/I&O/Wt Last Vital Signs Temp 98.3 F 11/03/24 12:00 Pulse 118 H 11/03/24 13:00 Resp 10 L 11/03/24 13:00 BP 126/88 11/03/24 13:00 Pulse Ox 81 L 11/03/24 13:00 O2 Del Method Nasal Cannula 11/03/24 09:05 O2 Flow Rate 2 11/03/24 09:05 11/02/24 11/03/24 11/03/24 22:59 06:59 14:59 Intake Total 1317.633 / 1637.495 85.4 / 1722.895 104.533 / 104.533 Output Total 3584 / 4134 1550 / 5684 Balance -2266.367 / -2496.505 -1464.6 / -3961.105 104.533 / 104.533 Weight last 48 hrs Weight 93.593 kg Weight 92.8 kg Weight 90 kg Weight 95.5 kg Physical Exam 2 Narrative: General: AO x 3, sitting in up in bed HEENT: PERRLA, pupils bilaterally equal and reactive, pallors not present Chest:very mild crakles at bases CVS: S1-S2 regular, no murmurs, Abdomen: Soft, nontender, bowel sounds present Neuro: No focal deficits, no facial deformity, AO x3, Extremities: Bilateral lower extremity pitting edema 1+ Urinary Catheter Management: Vazquez: Cath Placed During This Visit: yes Reason for Continuing Indwelling Catheter: Accurate Measurement of Urinary Output in Critically Ill Patients Urinary Catheter Date of Insertion: 10/30/24 Urinary Catheter Time of Insertion: 21:41 Data 11/03/24 04:48 11/03/24 04:48 Micro: Microbiology 10/30/24 21:30 Urine Culture - Final Urine,Clean Catch Jamilah albicans A&P Assessment and plan 1. Hypoxic respiratory failure: 2. Acute exacerbation of CHF (congestive heart failure): 3. Acute kidney injury superimposed on CKD: 4. Paroxysmal atrial fibrillation: 5. Bradycardia with 31-40 beats per minute: 6. Sinus pause: 7. UTI (urinary tract infection): UA with 2+ leukocyte Estrace, WBC greater than 100, squamous epithelial cells 5- 10, specimen may not be a clean-catch. For now we will continue ceftriaxone 1 g IV every 24 hours as started in the ER while awaiting urine culture results. Follow-up blood cultures. 8. Hyperkalemia: Resolved after initial treatment in the ER. Continue to monitor. If needed will add Kayexalate and calcium gluconate. 9. Type 2 diabetes mellitus: Recent A1c of 8.8. Continue with insulin sliding scale at moderate dose protocol. Takes Lantus 22 units at home. For now we will hold off p.o. depending on insulin requirement in next 24 hours can restart Lantus. 10. Pleural effusion: Bilateral pleural effusions, noted to be moderate on CT of her chest. She required bilateral thoracentesis on her most recent admission. Patient is currently on Plavix 75 mg daily which cannot be interrupted for thoracentesis given her recent stents. Additionally on Eliquis 5 mg p.o. twice daily. For now we will continue anticoagulation and Plavix and assess for improvement with IV diuresis and HD (if progresses onto this) 11. Coronary artery disease: Status post recent stents as noted above placed on October 27, 2024. Currently declines any chest pain. Continue with DAPT, ezetimibe for now. Appreciate recent A1c and lipid panel along with echocardiogram. 12. Mild cognitive impairment with memory loss: 13. Transfusion of blood product declined due to restoration reason: Discussed in detail with the patient. She declines any kind of blood products including platelets, FFP or albumin. We did discuss that she is at a high risk of bleeding specially with multiple procedures given she was recently on Eliquis, currently on heparin drip and Plavix which would need to be continued given recent PCI. Both patient and spouse at bedside verbalized understanding. Plan: 69-year-old lady with known CKD with baseline creatinine most recently ranging between 2.5 to 3.3, most recently at 3.6 on recent hospital discharge on October 28, 2024. Recent complicated hospital stay for CAD, PCI with 3 stents as noted above, bilateral thoracentesis and CHF exacerbation for which she was treated with IV diuresis. Presents from correction with worsening dyspnea, lower extremity edema, and generalized anasarca. Her acute hypoxemic respiratory failure is currently multifactorial related to acute on chronic systolic CHF exacerbation, MANUELITO on CKD and bilateral pleural effusions. Acute hypoxic respiratory failure: Oxygen supplementation keeping saturation over 90%. Most likely in setting of congestive heart failure. Patient does have bilateral pleural effusion. Recently had thoracentesis. For now we will try to avoid thoracentesis again given higher chance of empyema. Additionally patient is on Plavix. Appreciate chest x-ray showing worsening pulmonary edema. MANUELITO on CKD: Most likely AKIRA in setting of CKD. Patient did have cardiac angiogram recently. Associated with hyperkalemia and metabolic acidosis. Baseline creatinine seems to be around 3.2-3.6. Failed aggressive diuresis with Bumex drip. Appreciate nephrology recommendations. Patient was being counseled for possible dialysis as an outpatient by outpatient technical advisor. Plan for emergent dialysis for now. Patient is agreeable. Surgery has been consulted and temporary dialysis catheter was placed on 11/01. Dialysis as per nephrology team. Monitor BMP daily. Atrial fibrillation/sinus pause along with bradycardia: Most likely in setting of MANUELITO/uremia. Monitor electrolytes keeping potassium around 4, magnesium around 2. Continue with dopamine drip at fixed rate for now. Hold off on metoprolol. Will consult cardiology. Continue to monitor. Eliquis withheld for now. Will start on heparin drip. Patient most probably will need tunneled catheter placement going forward so for now we will continue with heparin drip. Acute on chronic decompensated systolic congestive heart failure: Echocardiogram done recently on 10/15 showed EF of 45 to 50% with mild MR. Fluid restriction to less than 1500 cc. Strict input output charting. Patient started on Bumex drip after poor response to IV Bumex yesterday along with 1 dose of oral metolazone 10 mg daily. Plan for negative ultrafiltration with hemodialysis today. Oxygen supplementation keeping saturation over 90%. Hypertension: Goal blood pressure less than 140/90 mmHg. Continue with home dose of amlodipine. Metoprolol withheld given sinus pause. IV hydralazine 10 mg every 6 hours as needed for systolic of more than 160 mmHg. Add oral hydralazine 50 mg 3 times daily to be withheld for a systolic of less than 130 mmHg. Uptitrate as per goal blood pressure. UTI: Follow blood culture, urine culture. For now continue with IV ceftriaxone. De-escalate as per culture sensitivities. Urine culture for now growing yeast. Will add fluconazole oral for 7-day course. Full code Renal dialysis diabetic diet SCD for DVT prophylaxis. Heparin drip will be sufficient for DVT prophylaxis Protonix for PUD prophylaxis. Plan for the day: Hypoxic respiratory failure seems to be improving. Congestive heart failure improving with good urine output and dialysis yesterday. Appreciate nephrology recommendations. Will plan for 1 more session of dialysis today. Monitor urine output. Hold off on diuretic for now. Repeat BMP in afternoon. Will replete electrolytes accordingly. For now plan will be for 1 more session of dialysis today and then holding off on dialysis depending on hemodynamics and respiratory status. If patient continues to do well and creatinine tends to come back to her baseline can hold off on tunneled catheter placement. Continue with home dose of Plavix and aspirin. Eliquis on hold for now given possibility of tunneled catheter placement. Follow-up cultures. Continue with IV ceftriaxone for now to finish a 5-day course. On fluconazole for yeast in urine culture. Heart rate mildly elevated. No further episodes of pauses since last night. For now we will hold off on dopamine drip and monitor. Continue to hold off on metoprolol for now. Out of bed to chair. 11/03/2024 seen today no plan for dialysis today appreciate nephro recommendations cr 4.1 today continue to monitor continue to hold eliquis given possibility of tunneled catheter pt has been off dopamine gtt PDMP PDMP Reviewed: Not Reviewed Attestations 2 Medical Necessity Statement*: Requires further hospitalization for management of acute hypoxic respiratory failure in setting of acute decompensated systolic heart failure due to MANUELITO on CKD requiring temporary dialysis Diagnoses Hypoxic respiratory failure J96.91 Acute exacerbation of CHF (congestive heart failure) I50.9 Acute kidney injury superimposed on CKD N17.9; N18.9 Paroxysmal atrial fibrillation I48.0 Bradycardia with 31-40 beats per minute R00.1 Sinus pause I45.5 UTI (urinary tract infection) N39.0 Hyperkalemia E87.5 Type 2 diabetes mellitus E11.9 Pleural effusion J90 Coronary artery disease I25.10 Mild cognitive impairment with memory loss G31.84 Transfusion of blood product declined due to restoration reason Z53.1
[2024-11-03 13:46] LABS: Partial Thromboplastin Time 43.9 SECONDS (23.9-36.7)
[2024-11-03] MEDS: heparin drip 25,000 UNIT/500 ML PREMIX 20 UNIT IV (14:00)
--- NOTE | 2024-11-03 16:06 | PC.SOCIAL ---
IMM updated IMM dated and initialed, Copy placed in chart and copy given to patient
[2024-11-03 20:16] LABS: Partial Thromboplastin Time 56.7 SECONDS (23.9-36.7)
[2024-11-03] MEDS: cefTRIAXone 1,000 mg SDV 1000 MG IVP (22:35)
[2024-11-04] VITALS (50 sets, daily range): BP systolic 92–166; BP diastolic 61–120; PULSE 67–125; RESP 8–27; TEMP 36.7–37.1; O2SAT 84–97
[2024-11-04 02:28] LABS: Hematocrit 28.7 % (36-47); Hemoglobin 9.20 g/dL (11.27-16.99); Mean Corpuscular HGB Conc 32.1 g/dL (30-55); Mean Corpuscular Hemoglobin 28.0 pg (27-33); Mean Corpuscular Volume 87.2 fl (85-98); Nucleated Red Blood Cells % 0 %; Platelet Count 264 10^3/cmm (157-399); Red Blood Count 3.29 10^6/uL (3.85-5.65); White Blood Count 9.66 10^3/uL (3.29-11.43)
[2024-11-04 02:37] LABS: Partial Thromboplastin Time 65.8 SECONDS (23.9-36.7)
[2024-11-04 02:43] LABS: Alanine Aminotransferase 9 U/L (0-33); Albumin Level 2.9 g/dL (3.5-5.2); Alkaline Phosphatase 97 U/L (35-105); Anion Gap 17.3 (5-19); Aspartate Amino Transferase 9 U/L (0-32); Blood Urea Nitrogen 47 mg/dL (8-23); Calcium 8.8 mg/dL (8.5-10.5); Carbon Dioxide 27 mmol/L (22-29); Chloride 103 mmol/L (98-107); Creatinine Clr Calc Pharmacy 13.8044; Globulin 3.1 g/dL (1.3-4.6); Glucose 131 mg/dL (65-115); Iron 43 ug/dL (37-145); Magnesium 2.0 mg/dL (1.7-2.3); Osmolality Calculated 312 mOsm/kg (285-295); Potassium 3.3 mmol/L (3.5-5.1); Sodium 144 mmol/L (136-145); Total Iron Binding Capacity 197 mcg/dl; Total Protein 6.0 g/dL (6.6-8.7); Unsaturated Iron Binding 154 ug/dL (112-347)
[2024-11-04 03:19] LABS: Calcium 8.5 mg/dL (8.5-10.5)
[2024-11-04 08:27] LABS: Partial Thromboplastin Time 63.2 SECONDS (23.9-36.7)
--- NOTE | 2024-11-04 09:46 | P.PN_ITS ---
Subjective 2 Subjective: The patient was seen and examined. Feeling better. Denies nausea vomit shortness of breath chest pain headaches or diarrhea. She is not very active therefore we do not know if she gets dyspneic on exertion. Medications: Reviewed: Yes Medication Review Details: Current Medications Acetaminophen (Acetaminophen 325 Mg Tablet) 650 mg PO Q6H PRN PRN Reason: Mild/Mod Pain Or Temp >/= 101 Albuterol Sulfate (Albuterol 2.5 Mg/3 Ml Neb) 2.5 mg INHALATION Q6H PRN PRN Reason: wheezing Amlodipine Besylate (Amlodipine 5 Mg Tablet) 5 mg PO DAILY [facility] Last Admin: 11/04/24 08:44 Dose: 5 mg Aspirin (Aspirin 81 Mg Ec Tablet) 81 mg PO DAILY [facility] Last Admin: 11/04/24 08:44 Dose: 81 mg Atropine Sulfate (Atropine 0.1 Mg/Ml Syr 10 Ml) 0.5 mg IVP ONCE PRN PRN Reason: bradycardia Ceftriaxone Sodium (Ceftriaxone 1,000 Mg Sdv) 1,000 mg IVP Q24H [facility]; Protocol Last Admin: 11/03/24 22:35 Dose: 1,000 mg Clopidogrel Bisulfate (Clopidogrel 75 Mg Tablet) 75 mg PO DAILY [facility] Last Admin: 11/04/24 08:45 Dose: 75 mg Ezetimibe (Ezetimibe 10 Mg Tablet) 10 mg PO DAILY [facility] Last Admin: 11/04/24 08:44 Dose: 10 mg Fluconazole (Fluconazole 100 Mg Tablet) 200 mg PO MoWeFr [facility] Last Admin: 11/03/24 20:59 Dose: 200 mg Fluconazole (Fluconazole 100 Mg Tablet) 100 mg PO [facility] Stop: 11/08/24 20:59 Last Admin: 11/02/24 20:42 Dose: 100 mg Fluticasone Propionate (Fluticasone Nasal [place] 16gm Btl) 1 spray NASAL BID [facility] Last Admin: 11/04/24 08:46 Dose: Not Given Glucagon (Glucagon 1 Mg/Ml Kit 1 Ml) 1 mg IM ONCE PRN; Protocol PRN Reason: Adult Acute Hypoglycemia Nursing Prot. Heparin Sodium (Porcine) (Heparin 5,000 Unit/Ml Inj 1 Ml) 0 unit IVP PRN PRN; Protocol PRN Reason: Heparin Weight Based Protocol -Subsequent Bolus Last Admin: 11/03/24 01:05 Dose: 2,000 unit Hydralazine HCl (Hydralazine 50 Mg Tablet) 25 mg PO TID [facility] Last Admin: 11/04/24 08:45 Dose: 25 mg Dextrose (D5w) 500 mls @ 0 mls/hr IV ONCE PRN; Protocol PRN Reason: Adult Acute Hypoglycemia Prot Dextrose (D10w) 125 mls @ 750 mls/hr IV PRN PRN; Protocol PRN Reason: Adult Acute Hypoglycemia Nursing Protocol Dextrose (D10w) 250 mls @ 1,000 mls/hr IV PRN PRN; Protocol PRN Reason: Adult Acute Hypoglycemia Nursing Protocol Heparin Sodium/Sodium Chloride (Heparin Drip) 25,000 unit in 500 mls @ 0 mls/hr IV CONT DHRUV; Protocol Last Titration: 11/04/24 08:32 Dose: 10 unit/kg/hr, 20 mls/hr Sodium Chloride (Sodium Chloride 0.9%) 1,000 mls @ 0 mls/hr IV .Q0M PRN PRN Reason: hypotension or symptomatic Albumin Human (Albumin) 12.5 gm in 50 mls @ 60 mls/hr IV PRN PRN PRN Reason: Hypotension and/or symptomatic Insulin Human Lispro (Insulin Lispro 100 Unit/1 Ml) 0 unit SUBCUT WM&BEDTIME [facility]; Protocol Last Admin: 11/04/24 08:46 Dose: 6 unit Metoprolol Tartrate (Metoprolol Tartrate 50 Mg Tablet) 50 mg PO BID@0900,2100 [facility] On Hold: 10/31/24 20:56 Last Admin: 10/31/24 09:31 Dose: 50 mg Ondansetron HCl (Ondansetron 2 Mg/Ml Sdv 2 Ml) 4 mg IVP Q8H PRN PRN Reason: vomiting, or N/V if npo Pantoprazole Sodium (Pantoprazole Dr 40 Mg Tablet) 40 mg PO DAILY [facility] Last Admin: 11/04/24 08:45 Dose: 40 mg Trazodone HCl (Trazodone 50 Mg Tablet) 50 mg PO BEDTIME PRN PRN Reason: INSOMNIA Vitals/I&O/Wt Last Vital Signs Temp 98.2 F 11/04/24 08:00 Pulse 72 11/04/24 09:30 Resp 13 11/04/24 09:30 BP 149/96 11/04/24 09:30 Pulse Ox 92 11/04/24 09:30 O2 Del Method Nasal Cannula 11/03/24 09:05 O2 Flow Rate 2 11/03/24 09:05 11/03/24 11/04/24 11/04/24 22:59 06:59 14:59 Intake Total 606 / 803.967 135.333 / 939.300 309.333 / 309.333 Output Total 1900 / 1900 1850 / 3750 Balance -1294 / -1096.033 -1714.667 / -2810.700 309.333 / 309.333 Weight last 48 hrs Weight 88 kg Weight 93.593 kg Weight 92.8 kg Physical Exam 2 Narrative: Patient is sitting up comfortably in bed. Patient was examined with the aid of A/V equipment with the aid of a nurse. Vital signs are noted- BP elevated. HEENT normocephalic atraumatic. Neck is supple. Right IJ dialysis catheter. Lungs -good air movement with dull base b/l Heart is now regular. Abdomen is soft positive bowel sounds. Extremities have trace edema. Neuro awake alert oriented x 3. No asterixis Urinary Catheter Management: Vazquez: Cath Placed During This Visit: yes Reason for Continuing Indwelling Catheter: Accurate Measurement of Urinary Output in Critically Ill Patients Urinary Catheter Date of Insertion: 10/30/24 Urinary Catheter Time of Insertion: 21:41 Data 11/04/24 02:13 11/04/24 02:13 Micro: Microbiology 10/30/24 21:30 Urine Culture - Final Urine,Clean Catch Jamilah albicans A&P Assessment and plan 1. Acute kidney injury superimposed on CKD: 2. CKD (chronic kidney disease), stage IV: 1. Acute on chronic kidney disease: Creatinine is in the 1.3-2 range chronically and followed by [facility], presumed secondary to diabetic nephropathy. Creatinine during recent admission was in 3 range . Now presents with severe MANUELITO with Cr 6.0 and volume overload likely contrast nephropathy - s/p temporary HD catheter placement and HD done 11/01november 02 2024. Will continue to hold dialysis and monitor for renal recovery. UA with 4+ protein and 1+ blood. Patient likely has diabetic nephropathy with nephrotic range proteinuria. - recent renal US -no hydronephrosis and normal-sized kidneys. -she will likely remain w/ CKD 4 2. Coronary artery disease heart failure with moderately reduced EF. Patient is status post recent cardiac catheterization and stents. Patient needs to remain on Plavix. 3. Anemia: Hemoglobin dropped to9.2- monitor iron sat 21%. check ferritin 4. replace k 5. HTN- amlodipine, hydralazine. can restart beta venkata 6. replace vit d PTH 87- no need for calcitriol Seen and examined with the nurse using audiovisual equipment. The patient consents to telehealth. Plan: see above PDMP PDMP Reviewed: Not Reviewed Attestations 2 Medical Necessity Statement*: manuelito, infection, htn Time Spent in Patient Care: 16 - 35 minutes (>than 50% of time sp ent in counselling and/or direct pt care on unit) . Coding Level of Care Code Acute Code for Chg Fwd Diagnoses Acute kidney injury superimposed on CKD N17.9; N18.9 CKD (chronic kidney disease), stage IV N18.4
--- NOTE | 2024-11-04 14:12 | P.PN_ITS ---
Subjective 2 Subjective: seen today no acute events overnight hold off on dialysis today urine output 3700 over last 24 hours cr 4.3 today potassium 3.3 today Vitals/I&O/Wt Last Vital Signs Temp 98.1 F 11/04/24 12:00 Pulse 71 11/04/24 12:00 Resp 23 H 11/04/24 12:00 BP 151/69 11/04/24 12:00 Pulse Ox 92 11/04/24 12:00 O2 Del Method Nasal Cannula 11/04/24 10:11 O2 Flow Rate 3 11/04/24 10:11 11/03/24 11/04/24 11/04/24 22:59 06:59 14:59 Intake Total 606 / 803.967 135.333 / 939.300 309.333 / 309.333 Output Total 1900 / 1900 1850 / 3750 Balance -1294 / -1096.033 -1714.667 / -2810.700 309.333 / 309.333 Weight last 48 hrs Weight 88 kg Weight 93.593 kg Weight 92.8 kg Physical Exam 2 Narrative: General: AO x 3, sitting in up in bed HEENT: PERRLA, pupils bilaterally equal and reactive, pallors not present Chest: clear to auscultation b/l CVS: S1-S2 regular, no murmurs, Abdomen: Soft, nontender, bowel sounds present Neuro: No focal deficits, no facial deformity, AO x3, Extremities: Bilateral lower extremity pitting edema 1+ Urinary Catheter Management: Vazquez: Cath Placed During This Visit: yes Reason for Continuing Indwelling Catheter: Accurate Measurement of Urinary Output in Critically Ill Patients Urinary Catheter Date of Insertion: 10/30/24 Urinary Catheter Time of Insertion: 21:41 Data 11/04/24 02:13 11/04/24 02:13 Micro: Microbiology 10/30/24 21:30 Urine Culture - Final Urine,Clean Catch Jamilah albicans A&P Assessment and plan 1. Hypoxic respiratory failure: 2. Acute exacerbation of CHF (congestive heart failure): 3. Acute kidney injury superimposed on CKD: 4. Paroxysmal atrial fibrillation: 5. Bradycardia with 31-40 beats per minute: 6. Sinus pause: 7. UTI (urinary tract infection): UA with 2+ leukocyte Estrace, WBC greater than 100, squamous epithelial cells 5- 10, specimen may not be a clean-catch. For now we will continue ceftriaxone 1 g IV every 24 hours as started in the ER while awaiting urine culture results. Follow-up blood cultures. 8. Hyperkalemia: Resolved after initial treatment in the ER. Continue to monitor. If needed will add Kayexalate and calcium gluconate. 9. Type 2 diabetes mellitus: Recent A1c of 8.8. Continue with insulin sliding scale at moderate dose protocol. Takes Lantus 22 units at home. For now we will hold off p.o. depending on insulin requirement in next 24 hours can restart Lantus. 10. Pleural effusion: Bilateral pleural effusions, noted to be moderate on CT of her chest. She required bilateral thoracentesis on her most recent admission. Patient is currently on Plavix 75 mg daily which cannot be interrupted for thoracentesis given her recent stents. Additionally on Eliquis 5 mg p.o. twice daily. For now we will continue anticoagulation and Plavix and assess for improvement with IV diuresis and HD (if progresses onto this) 11. Coronary artery disease: Status post recent stents as noted above placed on October 27, 2024. Currently declines any chest pain. Continue with DAPT, ezetimibe for now. Appreciate recent A1c and lipid panel along with echocardiogram. 12. Mild cognitive impairment with memory loss: 13. Transfusion of blood product declined due to scientology reason: Discussed in detail with the patient. She declines any kind of blood products including platelets, FFP or albumin. We did discuss that she is at a high risk of bleeding specially with multiple procedures given she was recently on Eliquis, currently on heparin drip and Plavix which would need to be continued given recent PCI. Both patient and spouse at bedside verbalized understanding. Plan: 69-year-old lady with known CKD with baseline creatinine most recently ranging between 2.5 to 3.3, most recently at 3.6 on recent hospital discharge on October 28, 2024. Recent complicated hospital stay for CAD, PCI with 3 stents as noted above, bilateral thoracentesis and CHF exacerbation for which she was treated with IV diuresis. Presents from [facility] with worsening dyspnea, lower extremity edema, and generalized anasarca. Her acute hypoxemic respiratory failure is currently multifactorial related to acute on chronic systolic CHF exacerbation, MANUELITO on CKD and bilateral pleural effusions. Acute hypoxic respiratory failure: Oxygen supplementation keeping saturation over 90%. Most likely in setting of congestive heart failure. Patient does have bilateral pleural effusion. Recently had thoracentesis. For now we will try to avoid thoracentesis again given higher chance of empyema. Additionally patient is on Plavix. Appreciate chest x-ray showing worsening pulmonary edema. MANUELITO on CKD: Most likely AKIRA in setting of CKD. Patient did have cardiac angiogram recently. Associated with hyperkalemia and metabolic acidosis. Baseline creatinine seems to be around 3.2-3.6. Failed aggressive diuresis with Bumex drip. Appreciate nephrology recommendations. Patient was being counseled for possible dialysis as an outpatient by outpatient pulp drier firer. Plan for emergent dialysis for now. Patient is agreeable. Surgery has been consulted and temporary dialysis catheter was placed on 11/01. Dialysis as per nephrology team. Monitor BMP daily. Atrial fibrillation/sinus pause along with bradycardia: Most likely in setting of MANUELITO/uremia. Monitor electrolytes keeping potassium around 4, magnesium around 2. Continue with dopamine drip at fixed rate for now. Hold off on metoprolol. Will consult cardiology. Continue to monitor. Eliquis withheld for now. Will start on heparin drip. Patient most probably will need tunneled catheter placement going forward so for now we will continue with heparin drip. Acute on chronic decompensated systolic congestive heart failure: Echocardiogram done recently on 10/15 showed EF of 45 to 50% with mild MR. Fluid restriction to less than 1500 cc. Strict input output charting. Patient started on Bumex drip after poor response to IV Bumex yesterday along with 1 dose of oral metolazone 10 mg daily. Plan for negative ultrafiltration with hemodialysis today. Oxygen supplementation keeping saturation over 90%. Hypertension: Goal blood pressure less than 140/90 mmHg. Continue with home dose of amlodipine. Metoprolol withheld given sinus pause. IV hydralazine 10 mg every 6 hours as needed for systolic of more than 160 mmHg. Add oral hydralazine 50 mg 3 times daily to be withheld for a systolic of less than 130 mmHg. Uptitrate as per goal blood pressure. UTI: Follow blood culture, urine culture. For now continue with IV ceftriaxone. De-escalate as per culture sensitivities. Urine culture for now growing yeast. Will add fluconazole oral for 7-day course. Full code Renal dialysis diabetic diet SCD for DVT prophylaxis. Heparin drip will be sufficient for DVT prophylaxis Protonix for PUD prophylaxis. Plan for the day: Hypoxic respiratory failure seems to be improving. Congestive heart failure improving with good urine output and dialysis yesterday. Appreciate nephrology recommendations. Will plan for 1 more session of dialysis today. Monitor urine output. Hold off on diuretic for now. Repeat BMP in afternoon. Will replete electrolytes accordingly. For now plan will be for 1 more session of dialysis today and then holding off on dialysis depending on hemodynamics and respiratory status. If patient continues to do well and creatinine tends to come back to her baseline can hold off on tunneled catheter placement. Continue with home dose of Plavix and aspirin. Eliquis on hold for now given possibility of tunneled catheter placement. Follow-up cultures. Continue with IV ceftriaxone for now to finish a 5-day course. On fluconazole for yeast in urine culture. Heart rate mildly elevated. No further episodes of pauses since last night. For now we will hold off on dopamine drip and monitor. Continue to hold off on metoprolol for now. Out of bed to chair. 11/03/2024 seen today no plan for dialysis today appreciate nephro recommendations cr 4.1 today continue to monitor continue to hold eliquis given possibility of tunneled catheter pt has been off dopamine gtt 11/04/2024 [facility] No plan for dialysis today Appreciate nephro recommendations Creatinine 4.3 today. Slight bump compared to yesterday. Patient has been having good urine output. Continue to monitor creatinine Continue heparin drip and anticipation of possible permanent dialysis catheter. If no plans of above we will switch to Eliquis. Patient to be on Eliquis and Plavix at discharge. Continue on aspirin and Plavix at this time. PDMP PDMP Reviewed: Not Reviewed Attestations 2 Medical Necessity Statement*: Requires further hospitalization for management of acute hypoxic respiratory failure in setting of acute decompensated systolic heart failure due to MANUELITO on CKD requiring temporary dialysis Diagnoses Hypoxic respiratory failure J96.91 Acute exacerbation of CHF (congestive heart failure) I50.9 Acute kidney injury superimposed on CKD N17.9; N18.9 Paroxysmal atrial fibrillation I48.0 Bradycardia with 31-40 beats per minute R00.1 Sinus pause I45.5 UTI (urinary tract infection) N39.0 Hyperkalemia E87.5 Type 2 diabetes mellitus E11.9 Pleural effusion J90 Coronary artery disease I25.10 Mild cognitive impairment with memory loss G31.84 Transfusion of blood product declined due to scientology reason Z53.1
[2024-11-04] MEDS: heparin drip 25,000 UNIT/500 ML PREMIX 20 UNIT IV (15:13)
[2024-11-04 15:22] LABS: Partial Thromboplastin Time 51.2 SECONDS (23.9-36.7)
[2024-11-04 22:25] LABS: Partial Thromboplastin Time 59.0 SECONDS (23.9-36.7)
[2024-11-04] MEDS: cefTRIAXone 1,000 mg SDV 1000 MG IVP (22:45)
[2024-11-05] VITALS (45 sets, daily range): BP systolic 103–145; BP diastolic 45–93; PULSE 63–114; RESP 7–29; TEMP 36.7–36.8; O2SAT 66–100
[2024-11-05 05:41] LABS: Hematocrit 30.9 % (36-47); Hemoglobin 9.90 g/dL (11.27-16.99); Mean Corpuscular HGB Conc 32.0 g/dL (30-55); Mean Corpuscular Hemoglobin 28.5 pg (27-33); Mean Corpuscular Volume 89.0 fl (85-98); Nucleated Red Blood Cells % 0 %; Platelet Count 292 10^3/cmm (157-399); Red Blood Count 3.47 10^6/uL (3.85-5.65); White Blood Count 10.91 10^3/uL (3.29-11.43)
[2024-11-05 05:58] LABS: Partial Thromboplastin Time 78.8 SECONDS (23.9-36.7)
[2024-11-05 06:11] LABS: Alanine Aminotransferase 12 U/L (0-33); Albumin Level 2.9 g/dL (3.5-5.2); Alkaline Phosphatase 99 U/L (35-105); Anion Gap 18.1 (5-19); Aspartate Amino Transferase 14 U/L (0-32); Blood Urea Nitrogen 44 mg/dL (8-23); Calcium 9.1 mg/dL (8.5-10.5); Carbon Dioxide 27 mmol/L (22-29); Chloride 100 mmol/L (98-107); Creatinine Clr Calc Pharmacy 13.3560; Globulin 3.5 g/dL (1.3-4.6); Glucose 170 mg/dL (65-115); Magnesium 2.0 mg/dL (1.7-2.3); Osmolality Calculated 309 mOsm/kg (285-295); Potassium 3.1 mmol/L (3.5-5.1); Sodium 142 mmol/L (136-145); Total Protein 6.4 g/dL (6.6-8.7)
--- NOTE | 2024-11-05 06:50 | PM.PN ---
Subjective Subjective: Patient seen and examined. Patient in normal sinus rhythm. Decreased edema feeling well. Has no complaints of nausea vomit shortness of breath chest pain headaches itching or cramps. Medications: Reviewed: Yes Medication Review Details: Current Medications Acetaminophen (Acetaminophen 325 Mg Tablet) 650 mg PO Q6H PRN PRN Reason: Mild/Mod Pain Or Temp >/= 101 Albuterol Sulfate (Albuterol 2.5 Mg/3 Ml Neb) 2.5 mg INHALATION Q6H PRN PRN Reason: wheezing Amlodipine Besylate (Amlodipine 5 Mg Tablet) 5 mg PO DAILY [facility] Last Admin: 11/04/24 08:44 Dose: 5 mg Aspirin (Aspirin 81 Mg Ec Tablet) 81 mg PO DAILY [facility] Last Admin: 11/04/24 08:44 Dose: 81 mg Atropine Sulfate (Atropine 0.1 Mg/Ml Syr 10 Ml) 0.5 mg IVP ONCE PRN PRN Reason: bradycardia Ceftriaxone Sodium (Ceftriaxone 1,000 Mg Sdv) 1,000 mg IVP Q24H [facility]; Protocol Last Admin: 11/04/24 22:45 Dose: 1,000 mg Clopidogrel Bisulfate (Clopidogrel 75 Mg Tablet) 75 mg PO DAILY [facility] Last Admin: 11/04/24 08:45 Dose: 75 mg Ezetimibe (Ezetimibe 10 Mg Tablet) 10 mg PO DAILY [facility] Last Admin: 11/04/24 08:44 Dose: 10 mg Fluconazole (Fluconazole 100 Mg Tablet) 200 mg PO MoWeFr [facility] Last Admin: 11/03/24 20:59 Dose: 200 mg Fluconazole (Fluconazole 100 Mg Tablet) 100 mg PO [facility] Stop: 11/08/24 20:59 Last Admin: 11/04/24 21:17 Dose: 100 mg Fluticasone Propionate (Fluticasone Nasal [place] 16gm Btl) 1 spray NASAL BID [facility] Last Admin: 11/04/24 17:36 Dose: Not Given Glucagon (Glucagon 1 Mg/Ml Kit 1 Ml) 1 mg IM ONCE PRN; Protocol PRN Reason: Adult Acute Hypoglycemia Nursing Prot. Heparin Sodium (Porcine) (Heparin 5,000 Unit/Ml Inj 1 Ml) 0 unit IVP PRN PRN; Protocol PRN Reason: Heparin Weight Based Protocol -Subsequent Bolus Last Admin: 11/03/24 01:05 Dose: 2,000 unit Hydralazine HCl (Hydralazine 50 Mg Tablet) 25 mg PO TID [facility] Last Admin: 11/04/24 20:19 Dose: Not Given Dextrose (D5w) 500 mls @ 0 mls/hr IV ONCE PRN; Protocol PRN Reason: Adult Acute Hypoglycemia Prot Dextrose (D10w) 125 mls @ 750 mls/hr IV PRN PRN; Protocol PRN Reason: Adult Acute Hypoglycemia Nursing Protocol Dextrose (D10w) 250 mls @ 1,000 mls/hr IV PRN PRN; Protocol PRN Reason: Adult Acute Hypoglycemia Nursing Protocol Heparin Sodium/Sodium Chloride (Heparin Drip) 25,000 unit in 500 mls @ 0 mls/hr IV CONT DHRUV; Protocol Last Titration: 11/05/24 06:04 Dose: 10 unit/kg/hr, 20 mls/hr Sodium Chloride (Sodium Chloride 0.9%) 1,000 mls @ 0 mls/hr IV .Q0M PRN PRN Reason: hypotension or symptomatic Albumin Human (Albumin) 12.5 gm in 50 mls @ 60 mls/hr IV PRN PRN PRN Reason: Hypotension and/or symptomatic Insulin Human Lispro (Insulin Lispro 100 Unit/1 Ml) 0 unit SUBCUT WM&BEDTIME [facility]; Protocol Last Admin: 11/04/24 20:29 Dose: 12 unit Metoprolol Tartrate (Metoprolol Tartrate 50 Mg Tablet) 25 mg PO BID@0900,2100 [facility] Last Admin: 11/04/24 21:17 Dose: 25 mg Ondansetron HCl (Ondansetron 2 Mg/Ml Sdv 2 Ml) 4 mg IVP Q8H PRN PRN Reason: vomiting, or N/V if npo Pantoprazole Sodium (Pantoprazole Dr 40 Mg Tablet) 40 mg PO DAILY [facility] Last Admin: 11/04/24 08:45 Dose: 40 mg Trazodone HCl (Trazodone 50 Mg Tablet) 50 mg PO BEDTIME PRN PRN Reason: INSOMNIA Vitals/I&O/Wt Last Vital Signs Temp 98.1 F 11/05/24 06:00 Pulse 64 11/05/24 06:00 Resp 14 11/05/24 06:00 BP 103/63 11/05/24 06:00 Pulse Ox 97 11/05/24 06:00 O2 Del Method Nasal Cannula 11/04/24 10:11 O2 Flow Rate 3 11/04/24 10:11 11/04/24 11/04/24 11/05/24 14:59 22:59 06:59 Intake Total 309.333 / 309.333 777.501 / 1086.834 158.033 / 1244.867 Output Total 1400 / 1400 1500 / 2900 Balance 309.333 / 309.333 -622.499 / -313.166 -1341.967 / -1655.133 Weight last 48 hrs Weight 83.5 kg Weight 88 kg Physical Exam Narrative: Patient is sitting up comfortably in bed. Patient was examined with the aid of A/V equipment with the aid of a nurse. Vital signs are noted- BP improved HEENT normocephalic atraumatic. Neck is supple. Right IJ dialysis catheter. Lungs -good air movement with dull base b/l Heart is now regular. Abdomen is soft positive bowel sounds. Extremities have trace edema. Neuro awake alert oriented x 3. No asterixis Urinary Catheter Management: Vazquez: Cath Placed During This Visit: yes Reason for Continuing Indwelling Catheter: Accurate Measurement of Urinary Output in Critically Ill Patients Urinary Catheter Date of Insertion: 10/30/24 Urinary Catheter Time of Insertion: 21:41 Data 11/05/24 04:24 11/05/24 04:24 Micro: Microbiology 10/30/24 22:41 Blood Culture - Final Blood NO GROWTH AFTER 5 DAYS 10/30/24 22:34 Blood Culture - Final Blood NO GROWTH AFTER 5 DAYS A&P Assessment and plan 1. Acute kidney injury superimposed on CKD: 2. CKD (chronic kidney disease), stage IV: 1. Acute on chronic kidney disease: Creatinine is in the 1.3-2 range chronically and followed by [facility], presumed secondary to diabetic nephropathy. Creatinine during recent admission was in 3 range . Now presents with severe MANUELITO with Cr 6.0 and volume overload likely contrast nephropathy - s/p temporary HD catheter placement and HD done 11/01 , november 02 2024. Will continue to hold dialysis -Please remove dialysis catheter UA with 4+ protein and 1+ blood. Patient likely has diabetic nephropathy with nephrotic range proteinuria. - recent renal US -no hydronephrosis and normal-sized kidneys. -she will likely remain w/ CKD 4 2. Coronary artery disease heart failure with moderately reduced EF. Patient is status post recent cardiac catheterization and stents. Patient needs to remain on Plavix. 3. Blood pressure has improved will decrease hydralazine dose. 4. Anemia: Hemoglobin dropped to9.2- monitor iron sat 21%. check ferritin 5. replace k 5. replace vit d PTH 87- no need for calcitriol Patient will need close outpatient renal follow-up Seen and examined with the nurse using audiovisual equipment. The patient consents to telehealth. Plan: see above PDMP PDMP Reviewed: Not Reviewed Attestations Medical Necessity Statement*: Replace electrolytes, consider rehab. Time Spent in Patient Care: 16 - 35 minutes (>than 50% of time spent in counselling and/or direct pt care on unit). Coding Level of Care Code Acute Code for Chg Fwd Diagnoses Acute kidney injury superimposed on CKD N17.9; N18.9 CKD (chronic kidney disease), stage IV N18.4
[2024-11-05] MEDS: magnesium sulfate premix 1 GM/100 ML PIGGYBACK IV (08:32)
[2024-11-05] MEDS: fluticasone nasal spray 16gm Btl 1 SPRAY NASAL ×2 (08:36→17:15)
--- NOTE | 2024-11-05 10:17 | PM.DCS ---
Discharge Providers Date of Admission: 10/31/24 00:43 Date of Discharge: November 05, 2024 Attending Provider at Admission: Sharon Ruiz MD Attending Provider at Discharge: Lisa Perkins MD Primary Care Provider: Jose Bah MD Diagnoses at Discharge Discharge Diagnosis 1. Acute kidney injury superimposed on CKD: 2. CKD (chronic kidney disease), stage IV: Reason for Visit Reason for Visit: CHF, SOB Physical Exam Urinary Catheter Management: Vazquez: Cath Placed During This Visit: yes Reason for Continuing Indwelling Catheter: Accurate Measurement of Urinary Output in Critically Ill Patients Urinary Catheter Date of Insertion: 10/30/24 Urinary Catheter Time of Insertion: 21:41 Discharge Data Studies Completed and Pending Completed Studies During Hospitalization Category Date Time Status CT abdomen pelvis wo con [id number] Stat Cat Scan 10/30/24 21:[address] chest wo con [id number] Stat Cat Scan 10/30/24 21:52 Completed XR chest 1V portable [id number] Stat Exams 10/30/24 20:07 Completed XR chest 1V portable [id number] Stat Exams 11/01/24 12:29 Completed Pending at discharge Category Date Time Status LEEANN Screen w/ Reflex Routine Lab 11/03/24 04:48 Received Complete Blood Count w/Auto AM LABS Lab 11/06/24 04:00 Ordered Comprehensive Metabolic Panel AM LABS Lab 11/06/24 04:00 Ordered Magnesium AM LABS Lab 11/06/24 04:00 Ordered PTT [Partial Thromboplastin Time] Timed Lab 11/05/24 12:00 Ordered Phosphorus AM LABS Lab 11/06/24 04:00 Ordered Radiology Impressions Abdomen/Pelvis CT 10/30/24 21:38 IMPRESSION: 1. Heterogeneity of the kidneys with apparent retained contrast, likely related to provided history of acute renal failure. Perinephric edema is also present, please correlate for pyelonephritis. 2. Right kidney punctate benign parenchymal calcifications. 3. Moderate bilateral pleural effusions. 4. Cardiomegaly. 5. Coronary artery atherosclerotic calcification. 6. Bilateral dependent airspace infiltrates. 7. Anasarca. 8. Cholecystectomy. 9. Vazquez catheter in the urinary bladder with air presumed iatrogenic. Chest CT 10/30/24 21:52 IMPRESSION: 1. Moderate bilateral pleural effusions. 2. Bilateral dependent atelectasis versus infiltrate. 3. Coronary artery atherosclerotic calcifications. 4. Cardiomegaly. 5. Mild anasarca. Chest X-Ray 11/01/24 12:29 IMPRESSION: 1. Good central line positioning with no complication noted 2. Pulmonary edema has worsened over the past 2 days ADDENDUM: 11/01/24 1428 No pneumothorax noted. Laboratory Results WBC 10.91 10^3/uL (3.29-11.43) 11/05/24 04:24 Corrected WBC Cancelled 11/01/24 04:23 RBC 3.47 10^6/uL (3.85-5.65) L 11/05/24 04:24 Hgb 9.90 g/dL (11.27-16.99) L 11/05/24 04:24 Hct 30.9 % (36-47) L 11/05/24 04:24 MCV 89.0 fl (85-98) 11/05/24 04:24 MCH 28.5 pg (27-33) 11/05/24 04:24 MCHC 32.0 g/dL (30-55) 11/05/24 04:24 RDW 13.9 % (12.1-15.1) 11/05/24 04:24 Plt Count 292 10^3/cmm (157-399) 11/05/24 04:24 MPV 11.2 fL (7.4-10.4) H 11/05/24 04:24 Gran % Cancelled 11/01/24 04:23 Neut % (Auto) 64.8 % 11/05/24 04:24 Lymph % (Auto) 19.8 % 11/05/24 04:24 [place] % (Auto) 9.3 % 11/05/24 04:24 Eos % (Auto) 3.8 % 11/05/24 04:24 Baso % (Auto) 0.9 % 11/05/24 04:24 Neut # (Auto) 7.07 10^3/uL (1.8-7.7) 11/05/24 04:24 Lymph # (Auto) 2.2 10^3/uL (0.8-4.8) 11/05/24 04:24 [place] # (Auto) 1.0 10^3/uL (0.2-0.9) H 11/05/24 04:24 Eos # (Auto) 0.4 10^3/uL (0.0-0.8) 11/05/24 04:24 Baso # (Auto) 0.1 10^3/uL (0.0-0.1) 11/05/24 04:24 Absolute Gran (auto) Cancelled 11/01/24 04:23 Nucleated RBC % (auto) 0 % 11/05/24 04:24 Nucleated RBCs # 0.0 /100WBC 11/05/24 04:24 PT 14.80 SECONDS (12.1-14.9) 11/01/24 11:01 INR 1.08 (0.8-1.2) 11/01/24 11:01 APTT 78.8 SECONDS (23.9-36.7) H 11/05/24 04:24 Specimen Type Arterial 10/31/24 02:20 Sample Site Radial, right 10/31/24 02:20 ABG pH 7.30 (7.35-7.45) L 10/31/24 02:20 ABG pCO2 43.4 mmHg (35-45) 10/31/24 02:20 ABG pO2 71.0 mmHg (80.0-100.0) L 10/31/24 02:20 ABG HCO3 21.2 mmol/L (22-26) L 10/31/24 02:20 ABG Base Excess -5.0 mmol/L (-2.0-2.0) L 10/31/24 02:20 Lalo Test Pos 10/31/24 02:20 Hematocrit 29.9 % (37-47) L 10/31/24 02:20 O2 Delivery Device Nc 10/31/24 02:20 O2 Liters/Min 4.0 % 10/31/24 02:20 Title Insurance Examiner ID [id number] 10/31/24 02:20 Sodium 142 mmol/L (136-145) 11/05/24 04:24 Potassium 3.1 mmol/L (3.5-5.1) L 11/05/24 04:24 Chloride 100 mmol/L (98-107) 11/05/24 04:24 Carbon Dioxide 27 mmol/L (22-29) 11/05/24 04:24 Anion Gap 18.1 (5-19) 11/05/24 04:24 BUN 44 mg/dL (8-23) H 11/05/24 04:24 Creatinine 4.3 mg/dL (0.5-0.9) H 11/05/24 04:24 GFR Calculation 10.3 mL/min (90-130) L 11/05/24 04:24 Glucose 170 mg/dL (65-115) H 11/05/24 04:24 POC Glucose 184 mg/dL (70-110) H 11/05/24 06:59 Calculated Osmolality 309 mOsm/kg (285-295) H 11/05/24 04:24 Uric Acid 5.2 mg/dL (2.4-5.7) 11/03/24 04:48 Calcium 9.1 mg/dL (8.5-10.5) 11/05/24 04:24 Phosphorus 4.5 mg/dL (2.5-4.5) 11/05/24 04:24 Magnesium 2.0 mg/dL (1.7-2.3) 11/05/24 04:24 Iron 43 ug/dL (37-145) 11/04/24 02:13 TIBC 197 mcg/dl 11/04/24 02:13 % Saturation 21.8 % (20-50) 11/04/24 02:13 Unsat Iron Binding 154 ug/dL (112-347) 11/04/24 02:13 Total Bilirubin 0.2 mg/dL (0.15-1.2) 11/05/24 04:24 AST 14 U/L (0-32) 11/05/24 04:24 ALT 12 U/L (0-33) 11/05/24 04:24 Alkaline Phosphatase 99 U/L (35-105) 11/05/24 04:24 Troponin T Baseline 72 ng/L (0-10) H 10/30/24 19:20 Troponin T 120 Minute 69.31 ng/L (0-10) H 10/30/24 21:14 Delta Troponin T -2.69 ABS# (0-10) L 10/30/24 21:14 Troponin T Hi Sens 6Hr 72.33 ng/L (0-10) H 10/31/24 01:39 Troponin T Hi Sens 6Hr Delta 0.33 ng/L (0-12) 10/31/24 01:39 NT-Pro-B Natriuret Pep 87843 pg/mL (0-125) H 10/30/24 19:20 Total Protein 6.4 g/dL (6.6-8.7) L 11/05/24 04:24 Albumin 2.9 g/dL (3.5-5.2) L 11/05/24 04:24 Globulin 3.5 g/dL (1.3-4.6) 11/05/24 04:24 25-OH Vitamin D Total 11 ng/mL (30-100) L 11/04/24 02:13 Procalcitonin 0.17 ng/mL (0-0.5) 10/30/24 21:14 PTH Intact 87.5 pg/mL (15-65) H 11/04/24 02:13 Calcium (PTH Intact) 8.5 mg/dL (8.5-10.5) 11/04/24 02:13 Urine Color Yellow (Yellow) 10/30/24 21: Urine Appearance Turbid (CLEAR) A 10/30/24 21: Urine pH 6.0 (5-7) 10/30/24 21: Ur Specific [place] 1.025 (1.005-1.030) 10/30/24 21: Urine Protein 4+ (Negative) A 10/30/24: Urine Glucose (UA) 3+ (Normal) H 10/30/24 21:30 Urine Ketones Negative (Negative) 10/30/24: Urine Blood 2+ (Negative) A 10/30/24 21: Urine Nitrate Negative (Negative) 10/30/24 21: Urine Bilirubin Negative (Negative) 10/30/24 21: Urine Urobilinogen 0.2 mg/dL (Negative) 10/30/24 21: Ur Leukocyte Esterase 2+ (Negative) A 10/30/24 21: Urine RBC 21-50 /hpf (0-2) H 10/30/24 21:30 Urine WBC >100 /hpf (0-5) H 10/30/24 21:30 Ur Squamous Epith Cells 5-10 /hpf (0-5) H 10/30/24 21: Amorphous Sediment Not Reportable 10/30/24 21:30 Urine Bacteria None seen /hpf (NONE) 10/30/24 21:30 Hyaline Casts 6.61 /lpf 10/30/24 21:30 Urine Yeast 2+ /hpf H 10/30/24 21: U Random Total Protein 1067 mg/dL 10/30/24 21:30 Hep Bs Antigen Non-reactive (Nonreactive) 11/01/24 04:23 Hep Bs Antibody < 3.5 (11.5-1000) L 11/01/24 04:23 Vitals Last Vital Signs Temp 98.1 F 11/05/24 06:00 Pulse 66 11/05/24 09:43 Resp 18 11/05/24 09:43 BP 124/67 11/05/24 08:00 Pulse Ox 99 11/05/24 09:43 O2 Del Method Nasal Cannula 11/05/24 09:43 O2 Flow Rate 3 11/05/24 09:43 Discharge Plan Discharge Patient Disposition: Xfer SNF Condition: Stable Prescriptions: New metoprolol tartrate 50 mg Tablet 25 mg PO BID@0900,2100 Qty: 60 0RF hydralazine 10 mg Tablet 10 mg PO TID Qty: 90 0RF bumetanide 1 mg tablet 1 mg PO DAILY Qty: 30 0RF insulin lispro [Humalog U-100 Insulin] 100 unit/mL Solution See Rx Instructions .ROUTE .COMPLEX 30 Days Qty: 10 0RF Rx Instructions: WM & Bedtime: Mod Dose Regimen 141-180 mg/dl 4 units/SQ 181-220 mg/dl 6 units/SQ 221-260 mg/dl 8 units/SQ 261-300 mg/dl 10 units/SQ 301-350 mg/dl 12 units/SQ 351-400 mg/dl 14 units/SQ greater than 400 mg/dl call doctor fluconazole 100 mg Tablet 100 mg PO DAILY 4 Days Qty: 4 0RF ergocalciferol (vitamin D2) [Vitamin D2] 1,250 mcg (50,000 unit) Capsule 50,000 unit PO Q7D Qty: 3 0RF Eliquis 5 mg Tablet 2.5 mg PO BID@0900,2100 Qty: 60 0RF potassium chloride 10 mEq capsule, extended release 10 meq PO DAILY Qty: 30 0RF insulin glargine [Lantus Solostar U-100 Insulin] 100 unit/mL (3 mL) insulin pen 5 unit SUBCUT QPM Qty: 3 0RF Continued albuterol sulfate [Ventolin HFA] 90 mcg/actuation HFA aerosol inhaler 2 puff inhalation Q6H PRN (Reason: shortness of breath or wheezing) Qty: 8.5 0RF magnesium 250 mg tablet 250 mg PO DAILY gabapentin 100 mg capsule 100 mg PO BID PRN (Reason: nerve pain) (DME) rollaid walker with seat See Rx Instructions .Route .MEDSUPPLY Qty: 1 0RF Rx Instructions: As directed ezetimibe 10 mg tablet 10 mg PO DAILY Qty: 90 1RF omeprazole 40 mg capsule,delayed release(DR/EC) 40 mg PO BID Qty: 120 1RF PreserVision AREDS 4,296 mcg-226 mg-90 mg capsule 1 cap PO BID isosorbide mononitrate 30 mg Tablet Extended Release 24 Hr 30 mg PO DAILY Qty: 30 0RF clopidogrel 75 mg Tablet 75 mg PO DAILY Qty: 90 0RF amlodipine 5 mg Tablet 5 mg PO DAILY Qty: 30 0RF nitroglycerin 0.4 mg Tablet, Sublingual 0.4 mg sublingual Q5M PRN (Reason: Chest Pain) Qty: 25 0RF Held Ozempic 2 mg/dose (8 mg/3 mL) pen injector 2 mg SUBCUT .weekly Qty: 3 3RF Hold Instructions: see pcp Rx Instructions: Sunday Discontinued bumetanide 1 mg tablet 1 mg PO BID Qty: 100 0RF galantamine 4 mg tablet 4 mg PO BID Qty: 60 6RF Rx Instructions: administer with AM and PM meals irbesartan 150 mg tablet 150 mg PO DAILY metoprolol tartrate 50 mg Tablet 50 mg PO BID@0900,2100 Qty: 60 0RF Eliquis 5 mg tablet 5 mg PO BID Qty: 90 0RF insulin degludec [Tresiba FlexTouch U-200] 200 unit/mL (3 mL) insulin pen 22 unit SUBCUT DAILY Qty: 9 0RF Other Ambulatory Orders: Basic Metabolic Panel (Q4D) Timeframe: 20241108 Facility: [facility] - Location: Lab - Main Lab Ordered By: Lisa Maddie Basic Metabolic Panel (Q4D) Timeframe: 20241112 Facility: [facility] - Location: Lab - Main Lab Ordered By: Lisa Maddie Basic Metabolic Panel (Q4D) Timeframe: 20241116 Facility: [facility] - Location: Lab - Main Lab Ordered By: Lisa Maddie Basic Metabolic Panel (Q4D) Timeframe: [id number] Facility: [facility] - Location: Lab - Main Lab Ordered By: Lisa Maddie Basic Metabolic Panel (Q4D) Timeframe: 20241124 Facility: [facility] - Location: Lab - Main Lab Ordered By: Lisa Maddie Basic Metabolic Panel (Q4D) Timeframe: [id number] Facility: [facility] - Location: Lab - Main Lab Ordered By: Lisa Maddie Complete Blood Count w/Auto (Q7D) Timeframe: 20241108 Location: Determined by Patient Ordered By: Lisa Maddie Complete Blood Count w/Auto (Q7D) Timeframe: 20241115 Location: Determined by Patient Ordered By: Lisa Maddie Complete Blood Count w/Auto (Q7D) Timeframe: 20241122 Location: Determined by Patient Ordered By: Lisa Maddie Referrals: Torrey Sauceda MD [Referring, Nephrology] - 1-3 days Lala Lantigua MD [Physician, Cardiology] - 4-7 days Jose Bah MD [Primary Care Provider, Family Practice] - 1-3 days Discharge Diet: Low Salt Discharge Activity: Resume usual activity, As per PT/OT instructions and Oxygen as instructed Coding Level of Care Code Acute Code for Chg Fwd Diagnoses Acute kidney injury superimposed on CKD N17.9; N18.9 CKD (chronic kidney disease), stage IV N18.4
--- NOTE | 2024-11-05 12:10 | PC.NURSE ---
Removed Dialysis line 11/05/24 at 1147, held pressure for 10 mins with Pricila CRUMP. Heparin gtt turned off and oral eliquis given at 0930.
--- NOTE | 2024-11-05 14:43 | PC.OT ---
OT treatment held today due to patient's d/c status
--- NOTE | 2024-11-05 14:50 | PC.SOCIAL ---
IMM updated IMM dated and initialed, copy given to patient and copy placed in chart.
--- NOTE | 2024-11-05 16:41 | PM.PN ---
Subjective Subjective: Seen today. Patient is ready for discharge awaiting insurance authorization. Offers no complaints this morning. Is on 3 L nasal cannula. Vitals/I&O/Wt Last Vital Signs Temp 98.1 F 11/05/24 06:00 Pulse 65 11/05/24 16:00 Resp 14 11/05/24 16:00 BP 138/73 11/05/24 15:00 Pulse Ox 94 11/05/24 16:00 O2 Del Method Nasal Cannula 11/05/24 09:43 O2 Flow Rate 3 11/05/24 09:43 11/05/24 11/05/24 11/05/24 06:59 14:59 22:59 Intake Total 158.033 / 1244.867 646 / 646 Output Total 1500 / 2900 Balance -1341.967 / -1655.133 646 / 646 Weight last 48 hrs Weight 83.5 kg Weight 88 kg Physical Exam Narrative: General: AO x 3, sitting in up in bed HEENT: PERRLA, pupils bilaterally equal and reactive, pallors not present Chest: clear to auscultation b/l CVS: S1-S2 regular, no murmurs, Abdomen: Soft, nontender, bowel sounds present Neuro: No focal deficits, no facial deformity, AO x3, Extremities: Bilateral lower extremity pitting edema 1+ Urinary Catheter Management: Vazquez: Cath Placed During This Visit: yes Reason for Continuing Indwelling Catheter: Accurate Measurement of Urinary Output in Critically Ill Patients Urinary Catheter Date of Insertion: 10/30/24 Urinary Catheter Time of Insertion: 21:41 Data 11/05/24 04:24 11/05/24 04:24 Micro: Microbiology 10/30/24 22:41 Blood Culture - Final Blood NO GROWTH AFTER 5 DAYS 10/30/24 22:34 Blood Culture - Final Blood NO GROWTH AFTER 5 DAYS A&P Assessment and plan 1. Hypoxic respiratory failure: 2. Acute exacerbation of CHF (congestive heart failure): 3. Acute kidney injury superimposed on CKD: 4. Paroxysmal atrial fibrillation: 5. Bradycardia with 31-40 beats per minute: 6. Sinus pause: 7. UTI (urinary tract infection): UA with 2+ leukocyte Estrace, WBC greater than 100, squamous epithelial cells 5-10, specimen may not be a clean-catch. For now we will continue ceftriaxone 1 g IV every 24 hours as started in the ER while awaiting urine culture results. Follow-up blood cultures. 8. Hyperkalemia: Resolved after initial treatment in the ER. Continue to monitor. If needed will add Kayexalate and calcium gluconate. 9. Type 2 diabetes mellitus: Recent A1c of 8.8. Continue with insulin sliding scale at moderate dose protocol. Takes Lantus 22 units at home. For now we will hold off p.o. depending on insulin requirement in next 24 hours can restart Lantus. 10. Pleural effusion: Bilateral pleural effusions, noted to be moderate on CT of her chest. She required bilateral thoracentesis on her most recent admission. Patient is currently on Plavix 75 mg daily which cannot be interrupted for thoracentesis given her recent stents. Additionally on Eliquis 5 mg p.o. twice daily. For now we will continue anticoagulation and Plavix and assess for improvement with IV diuresis and HD (if progresses onto this) 11. Coronary artery disease: Status post recent stents as noted above placed on October 27, 2024. Currently declines any chest pain. Continue with DAPT, ezetimibe for now. Appreciate recent A1c and lipid panel along with echocardiogram. 12. Mild cognitive impairment with memory loss: 13. Transfusion of blood product declined due to episcopalian reason: Discussed in detail with the patient. She declines any kind of blood products including platelets, FFP or albumin. We did discuss that she is at a high risk of bleeding specially with multiple procedures given she was recently on Eliquis, currently on heparin drip and Plavix which would need to be continued given recent PCI. Both patient and spouse at bedside verbalized understanding. Plan: 69-year-old lady with known CKD with baseline creatinine most recently ranging between 2.5 to 3.3, most recently at 3.6 on recent hospital discharge on October 28, 2024. Recent complicated hospital stay for CAD, PCI with 3 stents as noted above, bilateral thoracentesis and CHF exacerbation for which she was treated with IV diuresis. Presents from [facility] with worsening dyspnea, lower extremity edema, and generalized anasarca. Her acute hypoxemic respiratory failure is currently multifactorial related to acute on chronic systolic CHF exacerbation, MANUELITO on CKD and bilateral pleural effusions. Acute hypoxic respiratory failure: Oxygen supplementation keeping saturation over 90%. Most likely in setting of congestive heart failure. Patient does have bilateral pleural effusion. Recently had thoracentesis. For now we will try to avoid thoracentesis again given higher chance of empyema. Additionally patient is on Plavix. Appreciate chest x-ray showing worsening pulmonary edema. MANUELITO on CKD: Most likely AKIRA in setting of CKD. Patient did have cardiac angiogram recently. Associated with hyperkalemia and metabolic acidosis. Baseline creatinine seems to be around 3.2-3.6. Failed aggressive diuresis with Bumex drip. Appreciate nephrology recommendations. Patient was being counseled for possible dialysis as an outpatient by outpatient data collection interviewer. Plan for emergent dialysis for now. Patient is agreeable. Surgery has been consulted and temporary dialysis catheter was placed on 11/01. Dialysis as per nephrology team. Monitor BMP daily. Atrial fibrillation/sinus pause along with bradycardia: Most likely in setting of MANUELITO/uremia. Monitor electrolytes keeping potassium around 4, magnesium around 2. Continue with dopamine drip at fixed rate for now. Hold off on metoprolol. Will consult cardiology. Continue to monitor. Eliquis withheld for now. Will start on heparin drip. Patient most probably will need tunneled catheter placement going forward so for now we will continue with heparin drip. Acute on chronic decompensated systolic congestive heart failure: Echocardiogram done recently on 10/15 showed EF of 45 to 50% with mild MR. Fluid restriction to less than 1500 cc. Strict input output charting. Patient started on Bumex drip after poor response to IV Bumex yesterday along with 1 dose of oral metolazone 10 mg daily. Plan for negative ultrafiltration with hemodialysis today. Oxygen supplementation keeping saturation over 90%. Hypertension: Goal blood pressure less than 140/90 mmHg. Continue with home dose of amlodipine. Metoprolol withheld given sinus pause. IV hydralazine 10 mg every 6 hours as needed for systolic of more than 160 mmHg. Add oral hydralazine 50 mg 3 times daily to be withheld for a systolic of less than 130 mmHg. Uptitrate as per goal blood pressure. UTI: Follow blood culture, urine culture. For now continue with IV ceftriaxone. De-escalate as per culture sensitivities. Urine culture for now growing yeast. Will add fluconazole oral for 7-day course. Full code Renal dialysis diabetic diet SCD for DVT prophylaxis. Heparin drip will be sufficient for DVT prophylaxis Protonix for PUD prophylaxis. Plan for the day: Hypoxic respiratory failure seems to be improving. Congestive heart failure improving with good urine output and dialysis yesterday. Appreciate nephrology recommendations. Will plan for 1 more session of dialysis today. Monitor urine output. Hold off on diuretic for now. Repeat BMP in afternoon. Will replete electrolytes accordingly. For now plan will be for 1 more session of dialysis today and then holding off on dialysis depending on hemodynamics and respiratory status. If patient continues to do well and creatinine tends to come back to her baseline can hold off on tunneled catheter placement. Continue with home dose of Plavix and aspirin. Eliquis on hold for now given possibility of tunneled catheter placement. Follow-up cultures. Continue with IV ceftriaxone for now to finish a 5-day course. On fluconazole for yeast in urine culture. Heart rate mildly elevated. No further episodes of pauses since last night. For now we will hold off on dopamine drip and monitor. Continue to hold off on metoprolol for now. Out of bed to chair. 11/03/2024 seen today no plan for dialysis today appreciate nephro recommendations cr 4.1 today continue to monitor continue to hold eliquis given possibility of tunneled catheter pt has been off dopamine gtt 11/04/2024 Transfer to [facility] floor today No plan for dialysis today Appreciate nephro recommendations Creatinine 4.3 today. Slight bump compared to yesterday. Patient has been having good urine output. Continue to monitor creatinine Continue heparin drip and anticipation of possible permanent dialysis catheter. If no plans of above we will switch to Eliquis. Patient to be on Eliquis and Plavix at discharge. Continue on aspirin and Plavix at this time. 11/05/2024 Stop heparin drip Stop aspirin Discharged on Eliquis 2.5 twice daily and Plavix. Discussed with nephrology and both cardiology who are okay with these medications. Patient having good urine output. Will need close follow-up with nephrology as an outpatient. Patient is ready for discharge and waiting for insurance authorization to go to nursing facility. No plan for dialysis at this time. Dialysis catheter to be removed. PDMP PDMP Reviewed: Not Reviewed Attestations Medical Necessity Statement*: awaiting insurance authorization Diagnoses Hypoxic respiratory failure J96.91 Acute exacerbation of CHF (congestive heart failure) I50.9 Acute kidney injury superimposed on CKD N17.9; N18.9 Paroxysmal atrial fibrillation I48.0 Bradycardia with 31-40 beats per minute R00.1 Sinus pause I45.5 UTI (urinary tract infection) N39.0 Hyperkalemia E87.5 Type 2 diabetes mellitus E11.9 Pleural effusion J90 Coronary artery disease I25.10 Mild cognitive impairment with memory loss G31.84 Transfusion of blood product declined due to episcopalian reason Z53.1
[2024-11-05] MEDS: cefTRIAXone 1,000 mg SDV 1000 MG IVP (22:00)
[2024-11-06] VITALS (19 sets, daily range): BP systolic 114–156; BP diastolic 59–83; PULSE 60–63; RESP 11–18; TEMP 36.7–37.2; O2SAT 90–100
[2024-11-06 05:17] LABS: Hematocrit 30.2 % (36-47); Hemoglobin 9.40 g/dL (11.27-16.99); Mean Corpuscular HGB Conc 31.1 g/dL (30-55); Mean Corpuscular Hemoglobin 28.0 pg (27-33); Mean Corpuscular Volume 89.9 fl (85-98); Nucleated Red Blood Cells % 0 %; Platelet Count 283 10^3/cmm (157-399); Red Blood Count 3.36 10^6/uL (3.85-5.65); White Blood Count 10.73 10^3/uL (3.29-11.43)
[2024-11-06 05:34] LABS: Alanine Aminotransferase 16 U/L (0-33); Albumin Level 3.0 g/dL (3.5-5.2); Alkaline Phosphatase 102 U/L (35-105); Anion Gap 15.7 (5-19); Aspartate Amino Transferase 16 U/L (0-32); Blood Urea Nitrogen 42 mg/dL (8-23); Calcium 9.2 mg/dL (8.5-10.5); Carbon Dioxide 27 mmol/L (22-29); Chloride 101 mmol/L (98-107); Creatinine Clr Calc Pharmacy 13.2212; Globulin 3.6 g/dL (1.3-4.6); Glucose 198 mg/dL (65-115); Magnesium 2.1 mg/dL (1.7-2.3); Osmolality Calculated 306 mOsm/kg (285-295); Potassium 3.7 mmol/L (3.5-5.1); Sodium 140 mmol/L (136-145); Total Protein 6.6 g/dL (6.6-8.7)
[2024-11-06] MEDS: fluticasone nasal spray 16gm Btl 1 SPRAY NASAL (08:11)
--- NOTE | 2024-11-06 09:21 | PM.DCS ---
Discharge Providers Date of Admission: 10/31/24 00:43 Date of Discharge: November 06, 2024 Attending Provider at Admission: Sharon Ruiz MD Attending Provider at Discharge: Lisa Perkins MD Primary Care Provider: Jose Bah MD Diagnoses at Discharge Discharge Diagnosis 1. Hypoxic respiratory failure: 2. Acute exacerbation of CHF (congestive heart failure): 3. Acute kidney injury superimposed on CKD: 4. Paroxysmal atrial fibrillation: 5. Bradycardia with 31-40 beats per minute: 6. Sinus pause: 7. UTI (urinary tract infection): 8. Hyperkalemia: 9. Type 2 diabetes mellitus: 10. Pleural effusion: 11. Coronary artery disease: 12. Mild cognitive impairment with memory loss: 13. Transfusion of blood product declined due to hoahaoism reason: Reason for Visit Reason for Visit: CHF, SOB Hospital Course Hospital Course Patient was originally admitted on 10/19 and discharged home on 10/28 after coronary angiogram. For that visit please see discharge summary from previous hospitalization. She returned back to the hospital on 30 October for acute renal failure. She underwent temporary dialysis due to contrast-induced nephropathy. She is now 14 L negative since admission. Has diuresed quite well. Creatinine has stabilized at 4.3. Patient will need close follow-up with outpatient nephrology, cardiology going forward. Patient was on a heparin drip during hospitalization in anticipation of permacath placement however that was not needed ultimately. She will be discharged on 2.5 Eliquis twice daily and Plavix secondary to higher bleeding risk and her being a Yazdanism not accepting any blood products. This was discussed with both nephrology and cardiology. Patient will be discharged to nursing facility and will be following up outpatient. We have given her follow-up labs to do twice a week and follow-up with PCP. Physical Exam Narrative: General: AO x 3, sitting in up in bed, on room air this morning. 14 L negative since admission. HEENT: PERRLA, pupils bilaterally equal and reactive, pallors not present Chest: clear to auscultation b/l CVS: S1-S2 regular, no murmurs, Abdomen: Soft, nontender, bowel sounds present Neuro: No focal deficits, no facial deformity, AO x3, Extremities: Bilateral lower extremity pitting edema trace to 1+ present. Urinary Catheter Management: Vazquez: Cath Placed During This Visit: yes Reason for Continuing Indwelling Catheter: Accurate Measurement of Urinary Output in Critically Ill Patients Urinary Catheter Date of Insertion: 10/30/24 Urinary Catheter Time of Insertion: 21:41 Discharge Data Studies Completed and Pending Completed Studies During Hospitalization Category Date Time Status CT abdomen pelvis wo con [id number] Stat Cat Scan 10/30/24 21:[address] chest wo con [id number] Stat Cat Scan 10/30/24 21:52 Completed XR chest 1V portable [id number] Stat Exams 10/30/24 20:07 Completed XR chest 1V portable [id number] Stat Exams 11/01/24 12:29 Completed Radiology Impressions Abdomen/Pelvis CT 10/30/24 21:38 IMPRESSION: 1. Heterogeneity of the kidneys with apparent retained contrast, likely related to provided history of acute renal failure. Perinephric edema is also present, please correlate for pyelonephritis. 2. Right kidney punctate benign parenchymal calcifications. 3. Moderate bilateral pleural effusions. 4. Cardiomegaly. 5. Coronary artery atherosclerotic calcification. 6. Bilateral dependent airspace infiltrates. 7. Anasarca. 8. Cholecystectomy. 9. Vazquez catheter in the urinary bladder with air presumed iatrogenic. Chest CT 10/30/24 21:52 IMPRESSION: 1. Moderate bilateral pleural effusions. 2. Bilateral dependent atelectasis versus infiltrate. 3. Coronary artery atherosclerotic calcifications. 4. Cardiomegaly. 5. Mild anasarca. Chest X-Ray 11/01/24 12:29 IMPRESSION: 1. Good central line positioning with no complication noted 2. Pulmonary edema has worsened over the past 2 days ADDENDUM: 11/01/24 1428 No pneumothorax noted. Laboratory Results WBC 10.73 10^3/uL (3.29-11.43) 11/06/24 04:54 Corrected WBC Cancelled 11/01/24 04:23 RBC 3.36 10^6/uL (3.85-5.65) L 11/06/24 04:54 Hgb 9.40 g/dL (11.27-16.99) L 11/06/24 04:54 Hct 30.2 % (36-47) L 11/06/24 04:54 MCV 89.9 fl (85-98) 11/06/24 04:54 MCH 28.0 pg (27-33) 11/06/24 04:54 MCHC 31.1 g/dL (30-55) 11/06/24 04:54 RDW 14.1 % (12.1-15.1) 11/06/24 04:54 Plt Count 283 10^3/cmm (157-399) 11/06/24 04:54 MPV 11.0 fL (7.4-10.4) H 11/06/24 04:54 Gran % Cancelled 11/01/24 04:23 Neut % (Auto) 65.8 % 11/06/24 04:54 Lymph % (Auto) 19.4 % 11/06/24 04:54 [place] % (Auto) 8.6 % 11/06/24 04:54 Eos % (Auto) 3.8 % 11/06/24 04:54 Baso % (Auto) 0.8 % 11/06/24 04:54 Neut # (Auto) 7.06 10^3/uL (1.8-7.7) 11/06/24 04:54 Lymph # (Auto) 2.1 10^3/uL (0.8-4.8) 11/06/24 04:54 [place] # (Auto) 0.9 10^3/uL (0.2-0.9) 11/06/24 04:54 Eos # (Auto) 0.4 10^3/uL (0.0-0.8) 11/06/24 04:54 Baso # (Auto) 0.1 10^3/uL (0.0-0.1) 11/06/24 04:54 Absolute Gran (auto) Cancelled 11/01/24 04:23 Nucleated RBC % (auto) 0 % 11/06/24 04:54 Nucleated RBCs # 0.0 /100WBC 11/06/24 04:54 PT 14.80 SECONDS (12.1-14.9) 11/01/24 11:01 INR 1.08 (0.8-1.2) 11/01/24 11:01 APTT 78.8 SECONDS (23.9-36.7) H 11/05/24 04:24 Specimen Type Arterial 10/31/24 02:20 Sample Site Radial, right 10/31/24 02:20 ABG pH 7.30 (7.35-7.45) L 10/31/24 02:20 ABG pCO2 43.4 mmHg (35-45) 10/31/24 02:20 ABG pO2 71.0 mmHg (80.0-100.0) L 10/31/24 02:20 ABG HCO3 21.2 mmol/L (22-26) L 10/31/24 02:20 ABG Base Excess -5.0 mmol/L (-2.0-2.0) L 10/31/24 02:20 Lalo Test Pos 10/31/24 02:20 Hematocrit 29.9 % (37-47) L 10/31/24 02:20 O2 Delivery Device Nc 10/31/24 02:20 O2 Liters/Min 4.0 % 10/31/24 02:20 Crime Prevention Worker ID [id number] 10/31/24 02:20 Sodium 140 mmol/L (136-145) 11/06/24 04:54 Potassium 3.7 mmol/L (3.5-5.1) 11/06/24 04:54 Chloride 101 mmol/L (98-107) 11/06/24 04:54 Carbon Dioxide 27 mmol/L (22-29) 11/06/24 04:54 Anion Gap 15.7 (5-19) 11/06/24 04:54 BUN 42 mg/dL (8-23) H 11/06/24 04:54 Creatinine 4.3 mg/dL (0.5-0.9) H 11/06/24 04:54 GFR Calculation 10.3 mL/min (90-130) L 11/06/24 04:54 Glucose 198 mg/dL (65-115) H 11/06/24 04:54 POC Glucose 183 mg/dL (70-110) H 11/06/24 07:42 Calculated Osmolality 306 mOsm/kg (285-295) H 11/06/24 04:54 Uric Acid 5.2 mg/dL (2.4-5.7) 11/03/24 04:48 Calcium 9.2 mg/dL (8.5-10.5) 11/06/24 04:54 Phosphorus 4.8 mg/dL (2.5-4.5) H 11/06/24 04:54 Magnesium 2.1 mg/dL (1.7-2.3) 11/06/24 04:54 Iron 43 ug/dL (37-145) 11/04/24 02:13 TIBC 197 mcg/dl 11/04/24 02:13 % Saturation 21.8 % (20-50) 11/04/24 02:13 Unsat Iron Binding 154 ug/dL (112-347) 11/04/24 02:13 Total Bilirubin 0.2 mg/dL (0.15-1.2) 11/06/24 04:54 AST 16 U/L (0-32) 11/06/24 04:54 ALT 16 U/L (0-33) 11/06/24 04:54 Alkaline Phosphatase 102 U/L (35-105) 11/06/24 04:54 Troponin T Baseline 72 ng/L (0-10) H 10/30/24 19:20 Troponin T 120 Minute 69.31 ng/L (0-10) H 10/30/24 21:14 Delta Troponin T -2.69 ABS# (0-10) L 10/30/24 21:14 Troponin T Hi Sens 6Hr 72.33 ng/L (0-10) H 10/31/24 01:39 Troponin T Hi Sens 6Hr Delta 0.33 ng/L (0-12) 10/31/24 01:39 NT-Pro-B Natriuret Pep 66660 pg/mL (0-125) H 10/30/24 19:20 Total Protein 6.6 g/dL (6.6-8.7) 11/06/24 04:54 Albumin 3.0 g/dL (3.5-5.2) L 11/06/24 04:54 Globulin 3.6 g/dL (1.3-4.6) 11/06/24 04:54 25-OH Vitamin D Total 11 ng/mL (30-100) L 11/04/24 02:13 Procalcitonin 0.17 ng/mL (0-0.5) 10/30/24 21:14 PTH Intact 87.5 pg/mL (15-65) H 11/04/24 02:13 Calcium (PTH Intact) 8.5 mg/dL (8.5-10.5) 11/04/24 02:13 Urine Color Yellow (Yellow) 10/30/24 21:30 Urine Appearance Turbid (CLEAR) A 10/30/24 21:30 Urine pH 6.0 (5-7) 10/30/24 21:30 Ur Specific [place] 1.025 (1.005-1.030) 10/30/24 21:30 Urine Protein 4+ (Negative) A 10/30/24 21:30 Urine Glucose (UA) 3+ (Normal) H 10/30/24 21:30 Urine Ketones Negative (Negative) 10/30/24 21:30 Urine Blood 2+ (Negative) A 10/30/24 21: Urine Nitrate Negative (Negative) 10/30/24 21: Urine Bilirubin Negative (Negative) 10/30/24 21: Urine Urobilinogen 0.2 mg/dL (Negative) 10/30/24 21:30 Ur Leukocyte Esterase 2+ (Negative) A 10/30/24 21: Urine RBC 21-50 /hpf (0-2) H 10/30/24 21:30 Urine WBC >100 /hpf (0-5) H 10/30/24 21:30 Ur Squamous Epith Cells 5-10 /hpf (0-5) H 10/30/24 21:30 Amorphous Sediment Not Reportable 10/30/24 21:30 Urine Bacteria None seen /hpf (NONE) 10/30/24 21:30 Hyaline Casts 6.61 /lpf 10/30/24 21:30 Urine Yeast 2+ /hpf H 10/30/24 21:30 U Random Total Protein 1067 mg/dL 10/30/24 21:30 LEEANN Screen Negative (NEGATIVE) 11/03/24 04:48 Hep Bs Antigen Non-reactive (Nonreactive) 11/01/24 04:23 Hep Bs Antibody < 3.5 (11.5-1000) L 11/01/24 04:23 Vitals Last Vital Signs Temp 98.9 F 11/06/24 04:00 Pulse 63 11/06/24 08:25 Resp 18 11/06/24 08:25 BP 149/75 11/06/24 08:00 Pulse Ox 93 11/06/24 08:25 O2 Del Method Nasal Cannula 11/06/24 08:25 O2 Flow Rate 2 11/06/24 08:25 Discharge Plan Discharge Patient Disposition: Xfer SNF Condition: Stable Prescriptions: New hydralazine 10 mg Tablet 10 mg PO TID Qty: 90 0RF metoprolol tartrate 50 mg Tablet 25 mg PO BID@0900,2100 Qty: 60 0RF Eliquis 5 mg Tablet 2.5 mg PO BID@0900,2100 Qty: 60 0RF bumetanide 1 mg tablet 1 mg PO DAILY Qty: 30 0RF potassium chloride 10 mEq capsule, extended release 10 meq PO DAILY Qty: 30 0RF fluconazole 100 mg Tablet 100 mg PO DAILY 4 Days Qty: 4 0RF ergocalciferol (vitamin D2) [Vitamin D2] 1,250 mcg (50,000 unit) Capsule 50,000 unit PO Q7D Qty: 3 0RF insulin glargine [Lantus Solostar U-100 Insulin] 100 unit/mL (3 mL) insulin pen 5 unit SUBCUT QPM Qty: 3 0RF insulin lispro [Humalog U-100 Insulin] 100 unit/mL Solution See Rx Instructions .ROUTE .COMPLEX 30 Days Qty: 10 0RF Rx Instructions: WM & Bedtime: Mod Dose Regimen 141-180 mg/dl 4 units/SQ 181-220 mg/dl 6 units/SQ 221-260 mg/dl 8 units/SQ 261-300 mg/dl 10 units/SQ 301-350 mg/dl 12 units/SQ 351-400 mg/dl 14 units/SQ greater than 400 mg/dl call doctor Continued albuterol sulfate [Ventolin HFA] 90 mcg/actuation HFA aerosol inhaler 2 puff inhalation Q6H PRN (Reason: shortness of breath or wheezing) Qty: 8.5 0RF magnesium 250 mg tablet 250 mg PO DAILY gabapentin 100 mg capsule 100 mg PO BID PRN (Reason: nerve pain) (DME) rollaid walker with seat See Rx Instructions .Route .MEDSUPPLY Qty: 1 0RF Rx Instructions: As directed ezetimibe 10 mg tablet 10 mg PO DAILY Qty: 90 1RF omeprazole 40 mg capsule,delayed release(DR/EC) 40 mg PO BID Qty: 120 1RF PreserVision AREDS 4,296 mcg-226 mg-90 mg capsule 1 cap PO BID isosorbide mononitrate 30 mg Tablet Extended Release 24 Hr 30 mg PO DAILY Qty: 30 0RF clopidogrel 75 mg Tablet 75 mg PO DAILY Qty: 90 0RF amlodipine 5 mg Tablet 5 mg PO DAILY Qty: 30 0RF nitroglycerin 0.4 mg Tablet, Sublingual 0.4 mg sublingual Q5M PRN (Reason: Chest Pain) Qty: 25 0RF Held Ozempic 2 mg/dose (8 mg/3 mL) pen injector 2 mg SUBCUT .weekly Qty: 3 3RF Hold Instructions: Resume on 11/11/24. Rx Instructions: Sunday Discontinued bumetanide 1 mg tablet 1 mg PO BID Qty: 100 0RF galantamine 4 mg tablet 4 mg PO BID Qty: 60 6RF Rx Instructions: administer with AM and PM meals irbesartan 150 mg tablet 150 mg PO DAILY metoprolol tartrate 50 mg Tablet 50 mg PO BID@0900,2100 Qty: 60 0RF Eliquis 5 mg tablet 5 mg PO BID Qty: 90 0RF insulin degludec [Tresiba FlexTouch U-200] 200 unit/mL (3 mL) insulin pen 22 unit SUBCUT DAILY Qty: 9 0RF Discharge Order = DC NOW: Discharge Order (Routine); Ordered 11/06/24 Ordered By: Lisa Perkins Other Ambulatory Orders: Basic Metabolic Panel (Q4D) Timeframe: 20241108 Facility: [facility] - Location: Lab - Main Lab Ordered By: Lisa Perkins Basic Metabolic Panel (Q4D) Timeframe: 20241112 Facility: [facility] - Location: Lab - Main Lab Ordered By: Lisa Perkins Basic Metabolic Panel (Q4D) Timeframe: 20241116 Facility: [facility] - Location: Lab - Main Lab Ordered By: Lisa Perkins Basic Metabolic Panel (Q4D) Timeframe: 20241120 Facility: [facility] - Location: Lab - Main Lab Ordered By: Lisa Perkins Basic Metabolic Panel (Q4D) Timeframe: 20241124 Facility: [facility] - Location: Lab - Main Lab Ordered By: Lisa Perkins Basic Metabolic Panel (Q4D) Timeframe: 20241128 Facility: [facility] - Location: Lab - Main Lab Ordered By: Lisa Perkins Complete Blood Count w/Auto (Q7D) Timeframe: 20241108 Location: Determined by Patient Ordered By: Lisa Perkins Complete Blood Count w/Auto (Q7D) Timeframe: 20241115 Location: Determined by Patient Ordered By: Lisa Perkins Complete Blood Count w/Auto (Q7D) Timeframe: 20241122 Location: Determined by Patient Ordered By: Lisa Perkins Referrals: Tae Rosales MD [Referring, Internal Medicine] - 11/20/24 3:30 pm Referral Note: will follow in [facility] and with Nurse Practictioner ,Catarino Bradley APN for follow up Lala Lantigua MD [Physician, Cardiology] - 11/10/24 8:30 am Jose Bah MD [Primary Care Provider, Family Practice] - 11/12/24 10:30 am Referral Note: We have notified your physician's clinic of the need for a follow-up appointment to be scheduled. If you have not heard from them within the next 2 business days, please call them directly. will follow with Luciana Terry APN nurse for this visit Discharge Diet: Low Salt Discharge Activity: Resume usual activity, As per PT/OT instructions and Oxygen as instructed Patient Instructions: Metoprolol (By mouth), Bumetanide (By mouth) (Bumex), Potassium Chloride (By mouth) (K-Dur, K-Brandie, K-Tab, Rafael Mur), Fluconazole (By mouth) (Diflucan), Ergocalciferol (By mouth), Hydralazine (By mouth), Insulin Glargine (By injection) (Lantus, Lantus SoloStar, Toujeo, Semglee), Insulin Lispro (By injection) (Humalog, Humalog Pen, Lispro-PFC,..., Apixaban (By mouth) (Eliquis), Heart Failure (DC), A-fib (Atrial Fibrillation) (ED), Acute Kidney Injury (DC), Urinary Tract Infection in Women (DC), Chronic Kidney Disease (DC), Sepsis (DC), CHF Stoplight Discharge Attestations Time Spent in Discharge Care*: greater than 30 min Quality Metrics Clinical Quality Measures [ No reported AMI, CVA or VTE this stay] Coding Level of Care Code Acute Code for Chg Fwd Diagnoses Hypoxic respiratory failure J96.91 Acute exacerbation of CHF (congestive heart failure) I50.9 Acute kidney injury superimposed on CKD N17.9; N18.9 Paroxysmal atrial fibrillation I48.0 Bradycardia with 31-40 beats per minute R00.1 Sinus pause I45.5 UTI (urinary tract infection) N39.0 Hyperkalemia E87.5 Type 2 diabetes mellitus E11.9 Pleural effusion J90 Coronary artery disease I25.10 Mild cognitive impairment with memory loss G31.84 Transfusion of blood product declined due to hoahaoism reason Z53.1
--- NOTE | 2024-11-06 09:58 | P.PN_ITS ---
Subjective 2 Subjective: The patient was seen and examined. The patient states she is feeling better dialysis catheter removed. Patient states she is eating and drinking well. Patient does have edema. No nausea no vomiting no headaches. Medications: Reviewed: Yes Medication Review Details: Current Medications Acetaminophen (Acetaminophen 325 Mg Tablet) 650 mg PO Q6H PRN PRN Reason: Mild/Mod Pain Or Temp >/= 101 Albuterol Sulfate (Albuterol 2.5 Mg/3 Ml Neb) 2.5 mg INHALATION Q6H PRN PRN Reason: wheezing Amlodipine Besylate (Amlodipine 5 Mg Tablet) 5 mg PO DAILY [facility] Last Admin: 11/06/24 08:10 Dose: 5 mg Apixaban (Apixaban 5 Mg Tablet) 2.5 mg PO BID@0900,2100 [facility] Last Admin: 11/06/24 08:16 Dose: 2.5 mg Atropine Sulfate (Atropine 0.1 Mg/Ml Syr 10 Ml) 0.5 mg IVP ONCE PRN PRN Reason: bradycardia Bumetanide (Bumetanide 1 Mg Tablet) 1 mg PO DAILY [facility] Last Admin: 11/06/24 08:10 Dose: 1 mg Ceftriaxone Sodium (Ceftriaxone 1,000 Mg Sdv) 1,000 mg IVP Q24H [facility]; Protocol Last Admin: 11/05/24 22:00 Dose: 1,000 mg Clopidogrel Bisulfate (Clopidogrel 75 Mg Tablet) 75 mg PO DAILY [facility] Last Admin: 11/06/24 08:10 Dose: 75 mg Ezetimibe (Ezetimibe 10 Mg Tablet) 10 mg PO DAILY [facility] Last Admin: 11/06/24 08:10 Dose: 10 mg Ergocalciferol (Ergocalciferol (Vitamin D2) 50,000 Unit Capsule) 50,000 unit PO Q7D [facility] Last Admin: 11/05/24 08:35 Dose: 50,000 unit Fluconazole (Fluconazole 100 Mg Tablet) 200 mg PO MoWeFr [facility] Last Admin: 11/05/24 20:11 Dose: Not Given Fluconazole (Fluconazole 100 Mg Tablet) 100 mg PO SuTuThSa [facility] Stop: 11/08/24 20:59 Last Admin: 11/04/24 21:17 Dose: 100 mg Fluticasone Propionate (Fluticasone Nasal [place] 16gm Btl) 1 spray NASAL BID [facility] Last Admin: 11/06/24 08:11 Dose: 1 spray Glucagon (Glucagon 1 Mg/Ml Kit 1 Ml) 1 mg IM ONCE PRN; Protocol PRN Reason: Adult Acute Hypoglycemia Nursing Prot. Hydralazine HCl (Hydralazine 10 Mg Tablet) 10 mg PO TID [facility] Last Admin: 11/06/24 08:10 Dose: 10 mg Dextrose (D5w) 500 mls @ 0 mls/hr IV ONCE PRN; Protocol PRN Reason: Adult Acute Hypoglycemia Prot Dextrose (D10w) 125 mls @ 750 mls/hr IV PRN PRN; Protocol PRN Reason: Adult Acute Hypoglycemia Nursing Protocol Dextrose (D10w) 250 mls @ 1,000 mls/hr IV PRN PRN; Protocol PRN Reason: Adult Acute Hypoglycemia Nursing Protocol Sodium Chloride (Sodium Chloride 0.9%) 1,000 mls @ 0 mls/hr IV .Q0M PRN PRN Reason: hypotension or symptomatic Albumin Human (Albumin) 12.5 gm in 50 mls @ 60 mls/hr IV PRN PRN PRN Reason: Hypotension and/or symptomatic Insulin Human Lispro (Insulin Lispro 100 Unit/1 Ml) 0 unit SUBCUT WM&BEDTIME [facility]; Protocol Last Admin: 11/06/24 08:09 Dose: 8 unit Metoprolol Tartrate (Metoprolol Tartrate 50 Mg Tablet) 25 mg PO BID@0900,2100 [facility] Last Admin: 11/06/24 08:11 Dose: 25 mg Ondansetron HCl (Ondansetron 2 Mg/Ml Sdv 2 Ml) 4 mg IVP Q8H PRN PRN Reason: vomiting, or N/V if npo Pantoprazole Sodium (Pantoprazole Dr 40 Mg Tablet) 40 mg PO DAILY [facility] Last Admin: 11/06/24 08:10 Dose: 40 mg Trazodone HCl (Trazodone 50 Mg Tablet) 50 mg PO BEDTIME PRN PRN Reason: INSOMNIA Vitals/I&O/Wt Last Vital Signs Temp 98.3 F 11/06/24 09:35 Pulse 63 11/06/24 08:25 Resp 18 11/06/24 08:25 BP 149/75 11/06/24 08:00 Pulse Ox 93 11/06/24 08:25 O2 Del Method Nasal Cannula 11/06/24 08:25 O2 Flow Rate 2 11/06/24 08:25 0711/06/24 11/06/24 22:59 06:59 14:59 Intake Total 118 / 764 240 / 1004 236 / 236 Output Total 400 / 400 700 / 1100 Balance -282 / 364 -460 / -96 236 / 236 Weight last 48 hrs Weight 86.319 kg Weight 83.5 kg Physical Exam 2 Narrative: Patient is lying comfortably in bed. Patient was examined with the aid of A/V equipment with the aid of a nurse. Vital signs are noted- BP elevsted HEENT normocephalic atraumatic. Neck is supple. Right IJ dialysis catheter removed Lungs -good air movement with dull base b/l Heart is now regular. Abdomen is soft positive bowel sounds. Extremities have increasing edema. Neuro awake alert oriented x 3. No asterixis Urinary Catheter Management: Vazquez: Cath Placed During This Visit: yes Reason for Continuing Indwelling Catheter: Accurate Measurement of Urinary Output in Critically Ill Patients Urinary Catheter Date of Insertion: 10/30/24 Urinary Catheter Time of Insertion: 21:41 Data 11/06/24 04:54 11/06/24 04:54 A&P Assessment and plan 1. Acute kidney injury superimposed on CKD: 2. CKD (chronic kidney disease), stage IV: 1. Acute on chronic kidney disease: Creatinine is in the 1.3-2 range chronically and followed by [facility], presumed secondary to diabetic nephropathy. Creatinine during recent admission was in 3 range . Now presents with severe MANUELITO with Cr 6.0 and volume overload likely contrast nephropathy - s/p temporary HD catheter placement and HD done 11/01 , november 02 2024. -Creatinine improved to 4.3 mg/dL and we removed her temporary dialysis catheter UA with 4+ protein and 1+ blood. Patient likely has diabetic nephropathy with nephrotic range proteinuria. - recent renal US -no hydronephrosis and normal-sized kidneys. -she will likely remain w/ CKD 4 2. Coronary artery disease heart failure with moderately reduced EF. Patient is status post recent cardiac catheterization and stents. Patient needs to remain on Plavix. Patient has edema we will decrease amlodipine and since she has CAD and reduced EF will start low-dose ARB. - She will need Bumex to questions whether its once or twice a day. 3. Blood pressure improving as she has edema decrease amlodipine which can cause edema especially in females over 65. Will add low-dose ARB. 4. Anemia: Hemoglobin stable at 9.4- monitor iron sat 21%. check ferritin. Please give oral iron 5. replace k she will likely need 20 mEq oral daily and she will need weekly chemistries as outpatient 6. replace vit d PTH 87- no need for calcitriol Patient will need close outpatient renal follow-up. She would likely need dialysis in the near future unless renal function improves the patient has diabetic nephropathy and cardiorenal syndrome. If she can get cleared for fistula that would be beneficial. Seen and examined with the nurse using audiovisual equipment. The patient consents to telehealth. Plan: see above PDMP PDMP Reviewed: Not Reviewed Attestations 2 Medical Necessity Statement*: Heart failure, CKD stage IV plus Time Spent in Patient Care: 16 - 35 minutes (>than 50% of time sp ent in counselling and/or direct pt care on unit) . Coding Level of Care Code Acute Code for Chg Fwd Diagnoses Acute kidney injury superimposed on CKD N17.9; N18.9 CKD (chronic kidney disease), stage IV N18.4
[2024-11-06] MEDS: ferric gluconate 125 MG in sodium chloride 0.9% (100 ml) 100 ML 110 MG IV (12:22)
--- NOTE | 2024-11-06 12:37 | PC.NURSE ---
Report called to [facility] [phone].
--- NOTE | 2024-11-06 13:23 | PC.NURSE ---
Education both verbal and written provided to patient and her at bedside. Patient and family educated on follow up care, medications new and stopped. Patient and her had no questions. Transport for [facility] present in room during education. Patient in care of [facility] at the time of this note.
== END 2024-11-06 13:27 | disposition skilled nursing facility (03) | DRG 682 ==
LOC: ER 10-31 00:22 → ICU 10-31 00:43
PROVIDERS: Hospitalist; Internal Medicine; Internal Medicine Nephrology; Student in an Organized Health Care Education/Training Program; Surgery; Admitting Provider Student in an Organized Health Care Education/Training Program; Emergency Provider Physician Assistant; PCP Family Medicine; Visit Provider Internal Medicine
DX: N17.9 Acute kidney failure, unspecified (principal); I50.23 Acute on chronic systolic (congestive) heart failure; J96.01 Acute respiratory failure with hypoxia; J18.9 Pneumonia, unspecified organism; I13.0 Hypertensive heart and chronic kidney disease with heart failure and stage 1 through stage 4 chronic kidney disease, or unspecified chronic kidney disease; N39.0 Urinary tract infection, site not specified; J44.0 Chronic obstructive pulmonary disease with (acute) lower respiratory infection; E11.22 Type 2 diabetes mellitus with diabetic chronic kidney disease; E11.65 Type 2 diabetes mellitus with hyperglycemia; N18.4 Chronic kidney disease, stage 4 (severe); I25.10 Atherosclerotic heart disease of native coronary artery without angina pectoris; Z95.5 Presence of coronary angioplasty implant and graft; D63.1 Anemia in chronic kidney disease; E87.5 Hyperkalemia; E55.9 Vitamin D deficiency, unspecified; Z85.828 Personal history of other malignant neoplasm of skin; Z87.442 Personal history of urinary calculi; G89.29 Other chronic pain; M54.9 Dorsalgia, unspecified; E78.5 Hyperlipidemia, unspecified; Z79.4 Long term (current) use of insulin; E66.9 Obesity, unspecified; Z68.33 Body mass index [BMI] 33.0-33.9, adult; Z53.1 Procedure and treatment not carried out because of patient's decision for reasons of belief and group pressure; Z79.02 Long term (current) use of antithrombotics/antiplatelets; N14.11 Contrast-induced nephropathy; T50.8X5A Adverse effect of diagnostic agents, initial encounter; I48.0 Paroxysmal atrial fibrillation; G31.84 Mild cognitive impairment of uncertain or unknown etiology; I44.0 Atrioventricular block, first degree
CPT/HCPCS: 36415; 36416; 36600; 51702; 71045; 71250; 74176; 80048; 80053; 81001; 82306; 82310; 82803; 82962; 83540; 83550; 83735; 83880; 83970; 84100; 84145; 84156; 84484; 84550; 85025; 85610; 85730; 86038; 86706; 87040; 87086; 87106; 87340; 90935; 93005; 96372; 96374; 96375; 96376; 97110; 97116; 97162; 97167; 97530; 99285; J0612; J0696; J1265; J1644; J1815; J1938; J2916; J3475; J3490; J9999; P9046; Q3014

== ENCOUNTER → 2024-11-11 15:10 | Outpatient (BNVA) | payer MEDICARE, SELFPAY | PROVIDERS: PCP Family Medicine; Visit Provider Nurse Practitioner Family | DX: I13.0 Hypertensive heart and chronic kidney disease with heart failure and stage 1 through stage 4 chronic kidney disease, or unspecified chronic kidney disease (principal); N18.4 Chronic kidney disease, stage 4 (severe); I50.33 Acute on chronic diastolic (congestive) heart failure; E11.22 Type 2 diabetes mellitus with diabetic chronic kidney disease; Z79.4 Long term (current) use of insulin; E87.6 Hypokalemia; Z79.01 Long term (current) use of anticoagulants; Z95.5 Presence of coronary angioplasty implant and graft | CPT/HCPCS: 99213 ==

== ENCOUNTER 2024-11-15 20:42 | Emergency (ER) | payer MEDICARE, SELFPAY ==
[2024-11-15 20:45] VITALS: BP 136/67; PULSE 96; RESP 18; TEMP 36.7; O2SAT 96; BMI 38.8
--- NOTE | 2024-11-15 20:45 | ECG_ITS ---
[facility] Date: 2024-11-15 Pat Name: Sandra Lemus Department: Room: Gender: Female Creative Coordinator: : 1955 Requested By: Christian White Order Number: [id number] Reading MD: Measurements Intervals [place] Rate: 63 P: 63 WI: 281 QRS: 52 QRSD: 100 T: 67 QT: 411 QTc: 423 Interpretive Statements SINUS RHYTHM WITH FIRST DEGREE AV BLOCK ANTEROSEPTAL MYOCARDIAL INFARCTION , OF INDETERMINATE AGE [40+ ms Q WAVE IN V1-V4] [email or web address]
--- OUTSIDE RECORDS SUMMARY | 2024-11-15 20:45 | XMS_ITS | Encounter Summary ---
Author Organization [facility] Address [address] [place] [address] Care Team Providers Care Unbundler Name Role Phone Mau Terry MD Primary Care Provider [phone] Encounter Details Date Type Department Care Team (Latest Contact Info) Description 06/19/2002 Outpatient Historical [facility] Ruddy Calloway, Jonh Howell MD [address] [place] [address] URIN TRACT INFECTION NOS (Primary Dx); LUMP OR MASS IN BREAST; SLEEP DISTURBANCES NEC; ABNORM ELECTROCARDIOGRAM Social History Tobacco Use Types Packs/Day Years Used Date Smoking Tobacco: Never Assessed Comments Unknown Sex and Gender Information Value Date Recorded Sex Assigned at Not on file Legal Sex Female 3:01 AM [employer]IN [employer] Gender Identity Not on file Sexual Orientation Not on file documented as of this encounter Plan of Treatment Not on file documented as of this encounter Visit Diagnoses Diagnosis Urinary tract infection, site not specified- Primary Lump or mass in breast Other sleep disturbances Nonspecific abnormal electrocardiogram (ECG) (EKG) documented in this encounter Care Teams Unbundler Relationship Specialty Start Date End Date Mau Terry MD [address] [place] [phone] PCP - General 02/28/06 07/12/14 documented as of this encounter
--- OUTSIDE RECORDS SUMMARY | 2024-11-15 20:45 | XMS_ITS | Encounter Summary ---
Author Organization [facility] Address [address] [place] [address] Care Team Providers Care Tape Folding Machine Operator Name Role Phone Mau Terry MD Primary Care Provider [phone] Encounter Details Date Type Department Care Team (Latest Contact Info) Description 10/03/2006 Outpatient Historical [facility] [address] [place] [address] Mau Terry MD [address] [place] [phone] Unspecified Essential Hypertension (Primary Dx); Unspecified Infective Otitis Externa; Irritable Bowel Syndrome; Lateral Epicondylitis Social History Tobacco Use Types Packs/Day Years Used Date Smoking Tobacco: Never Assessed Comments Unknown Sex and Gender Information Value Date Recorded Sex Assigned at Not on file 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
--- OUTSIDE RECORDS SUMMARY | 2024-11-15 20:45 | XMS_ITS | Encounter Summary ---
Author Organization [facility] Address [address] [place] [address] Care Team Providers Care Server Engineer Name Role Phone Unavailable Primary Care Provider Unavailabl e Encounter Details Date Type Department Care Team (Late st Contact Info) Description 07/30/2020 Ancillary Orders [facility] [employer] [address] [place] [phone] Radha Suarze, ELECTRICAL WIRING LINEMAN [address] [place] [phone] Pain in left hand Social History Tobacco Use Types Packs/Day Years Used Date Smoking Tobacco: Never Smokeless Tobacco: Never Alcohol Use Standard Drinks/Week Comments Yes 0 (1 standard drink = 0.6 oz pur e alcohol) rare Comments No Sex and Gender Information Value Date Recorded Sex Assigned at Not on file Legal Sex Female 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 Clinical correlation recommended. [id number] Narrative Procedure Note Luz Alarcon MD - [...] [facility] the [facility].. Clinical correlation recommended. [id number] Radha Suarez ELECTRICAL WIRING LINEMAN DIAGNOSTIC IMAGING ORDERABLES F inal Result documented in this encounter Visit Diagnoses Diagnosis Pain in left hand Pain in left hand documented in this encounter
--- OUTSIDE RECORDS SUMMARY | 2024-11-15 20:45 | XMS_ITS | Encounter Summary ---
Author Organization [facility] Address [address] [place] [address] Care Team Providers Care Manager Patient Name Role Phone Mau Terry MD Primary Care Provider [phone] Encounter Details Date Type Department Care Team (Late st Contact Info) Description 05/14/2002 Outpatient Historical [facility] Ear, Nose and Throat [address] [place] 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
--- OUTSIDE RECORDS SUMMARY | 2024-11-15 20:45 | XMS_ITS | Clinical Summary ---
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 Gender Identity Not on file Sexual [...] hyperglycemia, with long-term current use of insulin ([facility]) LIPID PANEL Routine 07/06/2020 11:48 AM CDT Uncontrolled type 2 diabetes mellitus with hyperglycemia, with long-term current use of insulin ([facility]) HEMOGLOBIN A1C Routine 07/06/2020 11:48 AM CDT Uncontrolled type 2 diabetes mellitus with hyperglycemia, with long-term current use of insulin ([facility]) DIABETES EYE EXAM Routine 01/05/2020 MAMMO SCREEN BILAT W OR WO CAD Routine 12/29/2011 2:40 PM CDT Other screening mammogram from Last 3 Months or Most Recently Relevant to Health Maintenance Results * (ABNORMAL) MICROALBUMIN/CREATININE RATIO, RANDOM UR (07/06/2020 11:54 AM CDT) MICROALBUMIN, URINE 38.3 No Reference Range mg/dL 07/06/2020 2:17 PM CDT [facility] CREATININE, URINE 75.3 29.0 - 226.0 mg/dL 07/06/2020 2:17 PM CDT [facility] Comment:Reference Range vari es with fluid intake and diet. MICROALBUMIN/ CREAT RATIO, UR 508.6(H) <25.0 mg/g 07/06/2020 2:17 PM T [facility] Urine URINE SPECIMEN OBTAINED BY CLEAN CATCH PROCEDURE / Unknown Collection / Unknown 07/06/2020 11:54 AM CDT 07/06/2020 12:19 PM CDT Narrative [facility] - 07/06/2020 2:17 PM CDT Condition Microalbumin/Creat ratio Normal Males <17 Normal Females <25 Microalbuminuria Males 17-299 Microalbuminuria Females 25-299 Overt proteinuria >=300 us Corey Lou MD URINE ORDERABLES Final Result Performing Organization Address [facility] de Phone Number [facility] CLIA# [id number] [address] [place] [address] * (ABNORMAL) HEMOGLOBIN A1C (07/06/2020 11:48 AM CDT) HEMOGLOBIN A1C 8.1(H) See Comment % 07/06/2020 1:38 PM CDT [facility] EST. AVG GLUCOSE, A1C 186 mg/dL 07/06/2020 1:38 PM CDT [facility] Blood Venipuncture / Unknown 07/06/2020 11:48 AM CDT 07/06/2020 12:01 PM CDT [facility] - 07/06/2020 1:38 PM CDT HGB A1C INTERPRETATION NORMAL: <5.7% PRE-DIABETES: 5.7 - 6.4% DIABETES: 6.5% OR GREATER Falsely low A1C measurements can occur when: 1. Anemia and/or hemolytic anemia is present. 2. Hemoglobin variants present. 3. Renal failure. 4. Transfusion of blood product in the last 120 days. We recommend ordering a fructosamine test([id number]) to more accurately assess glycemic status if any of the above conditions are present. us Corey Lou MD CHEMISTRY ORDERABLES Final Res ult Performing Organization Address [facility] Co de Phone Number [facility] [place] CLIA# [id number] [address] [place] [address] * (ABNORMAL) LIPID PANEL (07/06/2020 11:48 AM CDT) CHOLESTEROL 201(H) <200 mg/dL 07/06/2020 1:04 PM CDT [facility] TRIGLYCERIDE 334(H) <150 mg/dL 07/06/2020 1:04 PM CDT [facility] HDL 41 40 - 59 mg/dL 07/06/2020 1:04 PM CDT [facility] LDL CALCULATED 93 <100 mg/dL 07/06/2020 1:04 PM CDT [facility] NON-HDL CHOLESTEROL 160(H) <130 mg/dL 07/06/2020 1:04 PM CDT [facility] Blood Venipuncture / Unknown 07/06/2020 11:48 AM CDT 07/06/2020 12:02 PM CDT Narrative [facility] - 07/06/2020 1:04 PM [...] Lou MD CHEMISTRY ORDERABLES Final Res ult [facility] CLIA# [id number] [address] [place] [address] * DIABETES EYE EXAM (01/05/2020) us Abstract [...] Most Recently Relevant to Health Maintenance Insurance [employer] [place] [place] [id number] Advance Directives For more information, please contact: [phone] Documents on File Type Date Recorded Patient Patent Solicitor Expl anation Advance Directive POA 07/06/2020 11:34 [...]
--- OUTSIDE RECORDS SUMMARY | 2024-11-15 20:45 | XMS_ITS | Encounter Summary ---
Author Organization [facility] Address [address] [place] [address] Care Team Providers Care Interstate Bus Driver Name Role Phone Mau Terry MD Primary Care Provider [phone] Encounter Details Date Type Department Care Team (Late st Contact Info) Description 06/19/2002 Outpatient Historical [facility] Jonh Fox Jr., MD [address] [place] [address] Social History Tobacco Use Types Packs/Day Years Used Date Smoking Tobacco: Never Assessed Comments Unknown Sex and Gender Information Value Date Recorded Sex Assigned at Not on file Legal Sex Female 3:01 AM 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
--- NOTE | 2024-11-15 20:46 | XRR_ITS ---
PROCEDURE INFORMATION: Exam: XR Chest Exam date and time: 11/15/2024 9:13 PM Age: 69 years old Clinical indication: Shortness of breath; C/O of SOB. History of chf. TECHNIQUE: Imaging protocol: Radiologic exam of the chest. Views: 1 view. COMPARISON: CR XR chest 1V portable [id number] 11/01/2024 11:59 AM FINDINGS: Lungs: Low lung volumes with bibasilar airspace disease. Some mild central vascular congestion may also be present. Pleural spaces: Probable pleural effusions bilaterally, difficult to quantify. No pneumothorax. Heart/Mediastinum: Heart size upper normal. Bones/joints: No acute osseous findings. XR/XR chest 1V portable [id number] IMPRESSION: Central vascular congestion with bibasilar airspace disease and pleural effusions. The lung base opacities could reflect atelectasis, edema, and/or infiltrate.
--- OUTSIDE RECORDS SUMMARY | 2024-11-15 20:46 | XMS_ITS | Encounter Summary ---
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 (Primary Dx) Social History Tobacco Use Types Packs/Day Years Used Date Smoking Tobacco: Never Assessed Comments Unknown Sex and Gender Information Value Date Recorded Sex Assigned at Not on file Legal Sex Female 3:01 AM SUPPLY SPECIALIST Gender Identity Not on file Sexual Orientation Not on file documented as of this encounter Plan of Treatment Not on file documented as of this encounter Visit Diagnoses Diagnosis 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
--- OUTSIDE RECORDS SUMMARY | 2024-11-15 20:46 | XMS_ITS | Encounter Summary ---
Author Organization [facility] Address [address] [place] [address] Care Team Providers Care Construction Management Assistant Name Role Phone Mau Terry MD Primary Care Provider [phone] Encounter Details Date Type Department Care Team (Latest Contact Info) Description 07/31/2002 Outpatient Historical [facility] Jonh Fox Jr., MD [address] [place] [address] FEMALE STRESS INCONTINENCE (Primary Dx); ALLERGIC RHINITIS NOS; HEARING LOSS NOS; SLEEP DISTURBANCES NEC Social History Tobacco Use Types Packs/Day Years Used Date Smoking Tobacco: Never Assessed Comments Unknown Sex and Gender Information Value Date Recorded Sex Assigned at Not on file Legal Sex Female 3: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
--- OUTSIDE RECORDS SUMMARY | 2024-11-15 20:46 | XMS_ITS | Encounter Summary ---
Author Organization [facility] Address [address] [place] [address] Care Team Providers Care Urban Planner Name Role Phone Mau Terry MD Primary Care Provider Encounter Details Date Type Department Care Team (Latest Contact Info) Description 06/08/2004 Outpatient Historical [facility] [place] [address] [facility] [address] [place] [phone] Sven Kimball, [place] NO ADDRESS ON FILE BONE/SKIN NEOPLASM NOS (Primary Dx); HEAD INJURY UNSPECIFIED Social History Tobacco Use Types Packs/Day Years Used Date Smoking Tobacco: Never Assessed Comments Unknown Sex and Gender Information Value Date Recorded Sex Assigned at Not on file 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
--- OUTSIDE RECORDS SUMMARY | 2024-11-15 20:46 | XMS_ITS | Encounter Summary ---
Author Organization [facility] Address [address] [place] [address] Care Team Providers Care Ground Services Instructor Name Role Phone Mau Terry MD Primary Care Provider Encounter Details Date Type Department Care Team (Latest Contact Info) Description 01/11/2005 Outpatient Historical [facility] [place] [address] [facility] [address] [place] [phone] Sven Kimball, [place] NO ADDRESS ON FILE HYPERTENSION NOS (Primary Dx); CARDIAC DYSRHYTHMIAS NEC; MALAISE AND FATIGUE NEC Social History Tobacco Use Types Packs/Day Years Used Date Smoking Tobacco: Never Assessed Comments Unknown Sex and Gender Information Value Date Recorded Sex Assigned at Not on file Legal Sex Female 3:01 AM 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
--- OUTSIDE RECORDS SUMMARY | 2024-11-15 20:46 | XMS_ITS | Encounter Summary ---
Author Organization [facility] Address [address] [place] [address] Care Team Providers Care Seafood Preparer Name Role Phone Mau Terry MD Primary Care Provider [phone] Encounter Details Date Type Department Care Team (Latest Contact Info) Description 04/19/2000 Outpatient Historical [facility] Jonh Fox Jr., MD [address] [place] [phone] Unspecified essential hypertension (Primary Dx); Undiagnosed cardiac murmurs Social History Tobacco Use Types Packs/Day Years Used Date Smoking Tobacco: Never Assessed Comments Unknown Sex and Gender Information Value Date Recorded Sex Assigned at Not on file Legal Sex Female 3:01 AM 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
--- OUTSIDE RECORDS SUMMARY | 2024-11-15 20:46 | XMS_ITS | Encounter Summary ---
Author Organization [facility] Address [address] [place] [address] Care Team Providers Care Fax Machine Repairer Name Role Phone Mau Terry MD Primary Care Provider [phone] Encounter Details Date Type Department Care Team (Latest Contact Info) Description 11/18/2002 Outpatient Historical [facility] Ear, Nose and Th[place]at [address] [place] [address] [place] [address] [place] [phone] Jc Barth MD NO ADDRESS ON FILE Dysfunct eustachian tube (Primary Dx); CONDUCT HEARING LOSS NOS; HYPERSOMNI W SLEEP APNEA Social History Tobacco Use Types Packs/Day Years Used Date Smoking Tobacco: Never Assessed Comments Unknown Sex and Gender Information Value Date Recorded Sex Assigned at Not on file Legal Sex Female 3:01 AM VACCINE KEY CUSTOMER LEADER Gender Identity Not on file Sexual Orientation Not on file documented as of this encounter Plan of Treatment Not on file documented as of this encounter Visit Diagnoses Diagnosis Dysfunct eustachian tube- Primary Dysfunction of Eustachian tube Unspecified conductive hearing loss Hypersomnia with sleep apnea, unspecified documented in this encounter Care Teams Fax Machine Repairer Relationship Specialty Start Date End Date Mau Terry MD [address] [place] [phone] PCP - General 02/28/06 07/12/14 documented as of this encounter
--- OUTSIDE RECORDS SUMMARY | 2024-11-15 20:46 | XMS_ITS | Encounter Summary ---
Author Organization [facility] Address [address] [place] [address] Care Team Providers Care Forging Operator Name Role Phone Mau Terry MD Primary Care Provider [phone] Encounter Details Date Type Department Care Team (Latest Contact Info) Description 04/08/2004 Outpatient Historical [facility]- [place] [address] [facility] [address] [place] [address] Russell Madrid MD [address] [place] [phone] HYPERTENSION NOS (Primary Dx); OTHER MALAISE AND FATIGUE Social History Tobacco Use Types Packs/Day Years Used Date Smoking Tobacco: Never Assessed Comments Unknown Sex and Gender Information Value Date Recorded Sex Assigned at Not on file 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
--- OUTSIDE RECORDS SUMMARY | 2024-11-15 20:46 | XMS_ITS | Encounter Summary ---
Author Organization [facility] Address [address] [place] [address] Care Team Providers Care Tibco Developer Name Role Phone Mau Terry MD Primary Care Provider [phone] Encounter Details Date Type Department Care Team (Latest Contact Info) Description 01/19/[address] [facility] Internal Medicine- [place] [address] [facility] [address] [place] [address] Russell Madrid MD [address] [place] [phone] HYPERTENSION NOS (Primary Dx) Social History Tobacco Use Types Packs/Day Years Used Date Smoking Tobacco: Never Assessed Comments Unknown Sex and Gender Information Value Date Recorded Sex Assigned at Not on file Legal Sex Female 3:01 AM DRUG ROOM OPERATOR Gender Identity Not on file Sexual Orientation Not on file documented as of this encounter Plan of Treatment Not on file documented as of this encounter Visit Diagnoses Diagnosis Unspecified essential hypertension- Primary documented in this encounter Care Teams Tibco Developer Relationship Specialty Start Date End Date Mau Terry MD [address] [place] [phone] PCP - General 02/28/06 07/12/14 documented as of this encounter
--- OUTSIDE RECORDS SUMMARY | 2024-11-15 20:46 | XMS_ITS | Encounter Summary ---
Author Organization [facility] Address [address] [place] [address] Care Team Providers Care Wire Walker Name Role Phone Mau Terry MD Primary Care Provider [phone] Encounter Details Date Type Department Care Team (Latest Contact Info) Description 03/06/2006 Outpatient Historical [facility] Imaging Services [address] [place] [address] Mau Terry MD [address] [place] [phone] Dysphagia (Primary Dx) Social History Tobacco Use Types Packs/Day Years Used Date Smoking Tobacco: Never Assessed Comments Unknown Sex and Gender Information Value Date Recorded Sex Assigned at Not on file Legal Sex Female 3:01 AM AIRCRAFT RIGGING AND CONTROLS MECHANIC Gender Identity Not on file Sexual Orientation Not on file documented as of this encounter Plan of Treatment Not on file documented as of this encounter Procedures Procedure Name Priority Date/Time Associated Diagnosis Comments XR ESOPHAGUS BARIUM SWALLOW Routine 03/06/2006 12:01 AM AIRCRAFT RIGGING AND CONTROLS MECHANIC documented in this encounter Results * XR ESOPHAGUS BARIUM SWALLOW (03/06/2006 12:01 AM AIRCRAFT RIGGING AND CONTROLS MECHANIC) Anatomical Region Laterality Modality Abdomen Other 03/06/2006 12:0 1 AM AIRCRAFT RIGGING AND CONTROLS MECHANIC Narrative 03/06/2006 12:01 AM AIRCRAFT RIGGING AND CONTROLS MECHANIC BARIUM SWALLOW 03/06/2006 AT 1036: COMPARISONS: None. [...] Primary documented in this encounter Care Teams Wire Walker Relationship Specialty Start Date End Date Mau Terry MD [address] [place] [phone] PCP - General 02/28/06 07/12/14 documented as of this encounter
--- OUTSIDE RECORDS SUMMARY | 2024-11-15 20:46 | XMS_ITS | Encounter Summary ---
Author Organization [facility] Address [address] [place] [address] Care Team Providers Care Bronze Chaser Name Role Phone Mau Terry MD Primary Care Provider [phone] Encounter Details Date Type Department Care Team (Latest Contact Info) Description 07/08/2002 Outpatient Historical [facility] Ear, Nose and Throat 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
--- OUTSIDE RECORDS SUMMARY | 2024-11-15 20:46 | XMS_ITS | Encounter Summary ---
Author Organization [facility] Address [address] [place] [address] Care Team Providers Care Director Of Rooms Name Role Phone Mau Terry MD Primary Care Provider [phone] Encounter Details Date Type Department Care Team (Late st Contact Info) Description 05/08/2000 Outpatient Historical [facility] Facial Plastic Surgery- [address] [address] Social History Tobacco Use Types Packs/Day Years Used Date Smoking Tobacco: Never Assessed Comments Unknown Sex and Gender Information Value Date Recorded Sex Assigned at Not on file Legal Sex Female 3:01 AM SR. MANAGER MARKETING Gender Identity Not on file Sexual Orientation Not on file documented as of this encounter Plan of Treatment Not on file documented as of this encounter Visit Diagnoses Not on filedocumented in this encounter Care Teams Director Of Rooms Relationship Specialty Start Date End Date Mau Terry MD [address] [place] [phone] PCP - General 02/28/06 07/12/14 documented as of this encounter
--- OUTSIDE RECORDS SUMMARY | 2024-11-15 20:46 | XMS_ITS | Encounter Summary ---
Author Organization [facility] Address [address] [place] [address] Care Team Providers Care Lining Parts Sewer Name Role Phone Mau Terry MD Primary Care Provider [phone] Encounter Details Date Type Department Care Team (Latest Contact Info) Description 02/23/2006 [facility]patient [facility] [address] [place] [address] Mau Terry MD [address] [place] [phone] Routine Medical Exam (Primary Dx); Dysphagia; Other Abnormal Blood Chemistry; Unspecified Essential Hypertension Social History Tobacco Use Types Packs/Day Years Used Date Smoking Tobacco: Never Assessed Comments Unknown Sex and Gender Information Value Date Recorded Sex Assigned at Not on file Legal Sex Female 3:01 AM 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
--- OUTSIDE RECORDS SUMMARY | 2024-11-15 20:46 | XMS_ITS | Encounter Summary ---
Author Organization [facility] Address [address] [place] [address] Care Team Providers Care Public Health Teacher Name Role Phone Mau Terry MD Primary Care Provider [phone] Encounter Details Date Type Department Care Team (Latest Contact Info) Description 11/23/[address] [facility] Medicine [place] [address] [facility] [address] [place] [phone] Sven Kimball PA NO ADDRESS ON FILE HYPERTENSION NOS (Primary Dx); CLEARANCE CUTTER DISORDER NOS Social History Tobacco Use Types Packs/Day Years Used Date Smoking Tobacco: Never Assessed Comments Unknown Sex and Gender Information Value Date Recorded Sex Assigned at Not on file Legal Sex Female 3:01 AM PORTFOLIO DIRECTOR Gender Identity Not on file Sexual Orientation Not on file documented as of this encounter Plan of Treatment Not on file documented as of this encounter Visit Diagnoses Diagnosis Unspecified essential hypertension- Primary Unspecified disorders of nervous system documented in this encounter Care Teams Public Health Teacher Relationship Specialty Start Date End Date Mau Terry MD [address] [place] [phone] PCP - General 02/28/06 07/12/14 documented as of this encounter
--- OUTSIDE RECORDS SUMMARY | 2024-11-15 20:46 | XMS_ITS | Encounter Summary ---
Author Organization [facility] Address [address] [place] [address] Care Team Providers Care Alterations Tailor Name Role Phone Mau Terry MD Primary Care Provider [phone] Encounter Details Date Type Department Care Team (Latest Contact Info) Description 03/15/2004 Outpatient Historical [facility] [address] [place] [phone] Sven Kimball, PA NO ADDRESS ON FILE DIZZINESS AND GIDDINESS (Primary Dx); OTALGIA NOS; HYPOTENSION NOS Social History Tobacco Use Types Packs/Day Years Used Date Smoking Tobacco: Never Assessed Comments Unknown Sex and Gender Information Value Date Recorded Sex Assigned at Not on file Legal Sex Female 3:01 AM METAL OR WOOD BLOCKER Gender Identity Not on file Sexual Orientation Not on file documented as of this encounter Plan of Treatment Not on file documented as of this encounter Visit Diagnoses Diagnosis Dizziness and giddiness- Primary Otalgia, unspecified Hypotension, unspecified documented in this encounter Care Teams Alterations Tailor Relationship Specialty Start Date End Date Mau Terry MD [address] [place] [phone] PCP - General 02/28/06 07/12/14 documented as of this encounter
--- OUTSIDE RECORDS SUMMARY | 2024-11-15 20:46 | XMS_ITS | Encounter Summary ---
Author Organization [facility] Address [address] [place] [address] Care Team Providers Care Polyethylene Combiner Name Role Phone Mau Terry MD Primary Care Provider [phone] Reason for Referral * Outpatient Services (Routine) - Closed Specialty Diagnoses / Procedures Referred By Contac t Referred To Contact Diagnoses Other screening mammogram Procedures MAMMO DIGITAL SCREEN BILAT Mau Terry MD [address] [place] [phone] Phone: tel: fax: [facility] Pre-Registration [facility] CALL TO MAKE APPOINTMENT ONLY [address] [place] [address] Phone: tel: fax: Referral ID Status Reason Start Date Expiration Date V isits Requested Visits Authorized [id number] Closed F [facility] TO SCHEDULE (SGF) 11/03/2011 11/02/2012 1 1 Encounter Details Date Type Department Care Team (Latest Contact Info) Description 11/03/2011 Ancillary Orders [facility] Pre-Registration [facility] CALL TO MAKE APPOINTMENT ONLY [address] [place] [address] Mau Terry MD [address] [place] [address] Other screening mammogram Social History Tobacco Use Types Packs/Day Years Used Date Smoking Tobacco: Never Smokeless Tobacco: Never Alcohol Use Standard Drinks/Week Comments No 0 (1 standard drink = 0.6 oz pur e alcohol) Comments No Sex and Gender Information Value Date Recorded Sex Assigned at Not on file Legal Sex Female 3:01 AM FLIGHT CONTROLS ENGINEER Gender Identity Not on file Sexual [...] mammogram documented in this encounter Care Teams Polyethylene Combiner Relationship Specialty Start Date End Date Mau Terry MD [address] [place] [address] [place] [phone] PCP - General 02/28/06 07/12/14 documented as of this encounter
--- OUTSIDE RECORDS SUMMARY | 2024-11-15 20:46 | XMS_ITS | Encounter Summary ---
Author Organization [facility] Address [address] [place] [address] Care Team Providers Care Amusement Park Entertainer Name Role Phone Mau Terry MD Primary Care Provider [phone] Encounter Details Date Type Department Care Team (Latest Contact Info) Description 01/28/2004 Outpatient Historical [facility] [address] [place] [address] Jose Tatum MD [address] [address] CLOSE SKULL BASE FRACTURE (CMS/HCC) (Primary Dx) Social History Tobacco Use Types Packs/Day Years Used Date Smoking Tobacco: Never Assessed Comments Unknown Sex and Gender Information Value Date Recorded Sex Assigned at Not on file Legal Sex Female 3:[address] OF [address] FOREMAN Gender Identity Not on file Sexual Orientation [...] consciousness documented in this encounter Care Teams Amusement Park Entertainer Relationship Specialty Start Date End Date Mau Terry MD [address] [place] [phone] PCP - General 02/28/06 07/12/14 documented as of this encounter
--- OUTSIDE RECORDS SUMMARY | 2024-11-15 20:46 | XMS_ITS | Encounter Summary ---
Author Organization [facility] Address [address] [facility] Attn: [place] [address] Care Team Providers Care Grade Recorder Name Role Phone Mau Terry MD Primary Care Provider [phone] Encounter Details Date Type Department Care Team (Late st Contact Info) Description 02/08/2005 Outpatient Historical [facility] DO NO ADDRESS ON FILE Social History Tobacco Use Types Packs/Day Years Used Date Smoking Tobacco: Never Assessed Comments Unknown Sex and Gender Information Value Date Recorded Sex Assigned at Not on file Legal Sex Female 3:01 AM SHIP PURSER Gender Identity Not on file Sexual Orientation [...] on filedocumented in this encounter Care Teams Grade Recorder Relationship Specialty Start Date End Date Mau Terry MD [facility] [address] [place] [phone] PCP - General 02/28/06 07/12/14 documented as of this encounter
--- OUTSIDE RECORDS SUMMARY | 2024-11-15 20:46 | XMS_ITS | Encounter Summary ---
Author Organization [facility] Address [address] [place] [address] Care Team Providers Care Outside Sales Professional Name Role Phone Mau Terry MD Primary Care Provider [phone] Encounter Details Date Type Department Care Team (Late st Contact Info) Description 06/20/2002 Outpatient Historical [facility] FY06 Jonh Fox Jr., MD [address] [place] [address] Social History Tobacco Use Types Packs/Day Years Used Date Smoking Tobacco: Never Assessed Comments Unknown Sex and Gender Information Value Date Recorded Sex Assigned at Not on file Legal Sex Female 3: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
--- OUTSIDE RECORDS SUMMARY | 2024-11-15 20:46 | XMS_ITS | Encounter Summary ---
Author Organization [facility] Address [address] [place] [address] Care Team Providers Care Bottom Polisher Name Role Phone Mau Terry MD Primary Care Provider [phone] Encounter Details Date Type Department Care Team (Latest Contact Info) Description 10/29/2002 Outpatient Historical [facility] [address] [place] [address] [place] [address] Chelita Luna, STOCK PREPARATION SUPERVISOR [address] [place] [address] INSOMNIA NEC (Primary Dx) Social History Tobacco Use Types Packs/Day Years Used Date Smoking Tobacco: Never Assessed Comments Unknown Sex and Gender Information Value Date Recorded Sex Assigned at Not on file Legal Sex Female 3:01 AM MICROBIOLOGY QUALITY CONTROL TECHNICIAN Gender Identity Not on file Sexual Orientation Not on file documented as of this encounter Plan of Treatment Not on file documented as of this encounter Visit Diagnoses Diagnosis Insomnia, unspecified- Primary documented in this encounter Care Teams Bottom Polisher Relationship Specialty Start Date End Date Mau Terry MD [address] [place] [phone] PCP - General 02/28/06 07/12/14 documented as of this encounter
--- OUTSIDE RECORDS SUMMARY | 2024-11-15 20:46 | XMS_ITS | Encounter Summary ---
Author Organization [facility] Address [address] [place] [address] Care Team Providers Care Rag Sorter And Cutter Name Role Phone Mau Terry MD Primary Care Provider [phone] Encounter Details Date Type Department Care Team (Latest Contact Info) Description 02/17/2000 Outpatient Historical [facility] Jonh Fox Jr., MD [address] [place] [phone] Unspecified essential hypertension (Primary Dx) Social History Tobacco Use Types Packs/Day Years Used Date Smoking Tobacco: Never Assessed Comments Unknown Sex and Gender Information Value Date Recorded Sex Assigned at Not on file Legal Sex Female 3:01 AM SOLAR SALES MANAGER Gender Identity Not on file Sexual Orientation Not on file documented as of this encounter Plan of Treatment Not on file documented as of this encounter Visit Diagnoses Diagnosis Unspecified essential hypertension- Primary documented in this encounter Care Teams Rag Sorter And Cutter Relationship Specialty Start Date End Date Mau Terry MD [address] [place] [phone] PCP - General 02/28/06 07/12/14 documented as of this encounter
--- OUTSIDE RECORDS SUMMARY | 2024-11-15 20:46 | XMS_ITS | Encounter Summary ---
Author Organization [facility] Address [address] [place] [address] Care Team Providers Care Veterinary Science Teacher Name Role Phone Mau Terry MD Primary Care Provider [phone] Encounter Details Date Type Department Care Team (Late st Contact Info) Description 08/27/2002 Outpatient [place] [address] [place] [address] Social History Tobacco Use Types Packs/Day Years Used Date Smoking Tobacco: Never Assessed Comments Unknown Sex and Gender Information Value Date Recorded Sex Assigned at Not on file Legal Sex Female 3:01 AM SHIP JOINER Gender Identity Not on file Sexual Orientation Not on file documented as of this encounter Plan of Treatment Not on file documented as of this encounter Visit Diagnoses Not on filedocumented in this encounter Care Teams Veterinary Science Teacher Relationship Specialty Start Date End Date Mau Terry MD [facility] [address] [place] [phone] PCP - General 02/28/06 07/12/14 documented as of this encounter
--- OUTSIDE RECORDS SUMMARY | 2024-11-15 20:46 | XMS_ITS | Encounter Summary ---
Author Organization 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) Social History Tobacco Use Types Packs/Day Years Used Date Smoking Tobacco: Never Assessed Comments Unknown Sex and Gender Information Value Date Recorded Sex Assigned at Not on file Legal Sex Female 3:01 AM QC CHEMIST Gender Identity Not on file Sexual Orientation Not on file documented as of this encounter Plan of Treatment Not on file documented as of this encounter Visit Diagnoses Diagnosis Other and unspecified malignant neoplasm of skin of other and unspecified parts of face- Primary documented in this encounter Care Teams Jack Frame Tender Relationship Specialty Start Date End Date Mau Terry MD [address] [place] [phone] PCP - General 02/28/06 07/12/14 documented as of this encounter
--- OUTSIDE RECORDS SUMMARY | 2024-11-15 20:46 | XMS_ITS | Encounter Summary ---
Author Organization [facility] Address [address] [place] [address] Care Team Providers Care Geoduck Diver Name Role Phone Mau Terry MD Primary Care Provider [phone] Encounter Details Date Type Department Care Team (Latest Contact Info) Description 12/14/2004 Outpatient Historical [facility] Medicine [place] [address] [facility] [address] [place] [phone] Sven Kimball PA NO ADDRESS ON FILE MALAISE AND FATIGUE NEC (Primary Dx); HYPERTENSION NOS Social History Tobacco Use Types Packs/Day Years Used Date Smoking Tobacco: Never Assessed Comments Unknown Sex and Gender Information Value Date Recorded Sex Assigned at Not on file Legal Sex Female 3:01 AM MANAGER MALL Gender Identity Not on file Sexual Orientation Not on file documented as of this encounter Plan of Treatment Not on file documented as of this encounter Visit Diagnoses Diagnosis Other malaise and fatigue- Primary Unspecified essential hypertension documented in this encounter Care Teams Geoduck Diver Relationship Specialty Start Date End Date Mau Terry MD [address] [place] [phone] PCP - General 02/28/06 07/12/14 documented as of this encounter
--- OUTSIDE RECORDS SUMMARY | 2024-11-15 20:46 | XMS_ITS | Encounter Summary ---
Author Organization [facility] Address [address] [place] [address] Care Team Providers Care Drier And Evaporator Operator Name Role Phone Mau Terry MD Primary Care Provider [phone] Encounter Details Date Type Department Care Team (Latest Contact Info) Description 03/08/2000 Outpatient Historical [facility] [address] [facility] [address] [place] [address] Jamey Fraga MD NO ADDRESS ON FILE Nonspecific abnormal findings on radiological or other examinations of the breast (Primary Dx) Social History Tobacco Use Types Packs/Day Years Used Date Smoking Tobacco: Never Assessed Comments Unknown Sex and Gender Information Value Date Recorded Sex Assigned at Not on file Legal Sex Female 3:01 AM CROSSBAR SWITCH ADJUSTER Gender Identity Not on file Sexual Orientation Not on file documented as of this encounter Plan of Treatment Not on file documented as of this encounter Visit Diagnoses Diagnosis Nonspecific abnormal findings on radiological or other examinations of the breast- Primary documented in this encounter Care Teams Drier And Evaporator Operator Relationship Specialty Start Date End Date Mau Terry MD [address] [place] [phone] PCP - General 02/28/06 07/12/14 documented as of this encounter
--- OUTSIDE RECORDS SUMMARY | 2024-11-15 20:46 | XMS_ITS | Encounter Summary ---
Author Organization [facility] Address [address] [place] [address] Care Team Providers Care Appliance Tester Name Role Phone Mau Terry MD Primary Care Provider [phone] Encounter Details Date Type Department Care Team (Latest Contact Info) Description 07/08/2002 Outpatient Historical [facility] [address] [facility] [address] [place] [address] Bryanna Bui MD NO ADDRESS ON FILE LUMP OR MASS IN BREAST (Primary Dx) Social History Tobacco Use Types Packs/Day Years Used Date Smoking Tobacco: Never Assessed Comments Unknown Sex and Gender Information Value Date Recorded Sex Assigned at Not on file Legal Sex Female 3:01 AM POLISH MAKER Gender Identity Not on file Sexual Orientation Not on file documented as of this encounter Plan of Treatment Not on file documented as of this encounter Visit Diagnoses Diagnosis Lump or mass in breast- Primary documented in this encounter Care Teams Appliance Tester Relationship Specialty Start Date End Date Mau Terry MD [address] [place] [phone] PCP - General 02/28/06 07/12/14 documented as of this encounter
--- OUTSIDE RECORDS SUMMARY | 2024-11-15 20:46 | XMS_ITS | Encounter Summary ---
Author Organization [facility] Address [address] [place] [address] Care Team Providers Care Implement Mechanic Name Role Phone Mau Terry MD Primary Care Provider [phone] Encounter Details Date Type Department Care Team (Late st Contact Info) Description 05/30/2007 Outpatient [facility] [address] [place], [place] [address] Mau Terry MD [address] [place] [phone] Social History Tobacco Use Types Packs/Day Years Used Date Smoking Tobacco: Never Assessed Comments Unknown Sex and Gender Information Value Date Recorded Sex Assigned at Not on file Legal Sex Female 3:01 AM EXTRUSION UTILITY WORKER Gender Identity Not on file Sexual Orientation Not on file documented as of this encounter Plan of Treatment Not on file documented as of this encounter Procedures Procedure Name Priority Date/Time Associated Diagnosis Comments MAMMO SCRN TO DIAG BILAT Routine 06/19/2007 9:48 AM EXTRUSION UTILITY WORKER documented in this encounter Results * MAMMO SCRN TO DIAG BILAT (06/19/2007 9:48 AM EXTRUSION UTILITY WORKER) Anatomical Region Laterality Modality Breast Other Narrative 06/19/2007 9:48 AM EXTRUSION UTILITY WORKER Report Available in [facility] Procedure Note 05/25/2008 Report Available in [facility] us Mau Terry MD MAMMO ORDERABLES Final Result documented in this encounter Visit Diagnoses Not on filedocumented in this encounter Care Teams Implement Mechanic Relationship Specialty Start Date End Date Mau Terry MD [address] [place] [phone] PCP - General 02/28/06 07/12/14 documented as of this encounter
--- OUTSIDE RECORDS SUMMARY | 2024-11-15 20:46 | XMS_ITS | Encounter Summary ---
Author Organization [facility] Address [address] [place] [address] Care Team Providers Care Director On Air Name Role Phone Mau Terry MD Primary Care Provider [phone] Encounter Details Date Type Department Care Team (Latest Contact Info) Description 05/27/2003 Outpatient Historical [facility] Medicine [place] [address] [facility] [address] [place] [phone] Bienvenido Louise, NO ADDRESS ON FILE ALLERGIC RHINITIS NOS (Primary Dx); HYPERTENSION NOS; JOINT PAIN-L/LEG Social History Tobacco Use Types Packs/Day Years Used Date Smoking Tobacco: Never Assessed Comments Unknown Sex and Gender Information Value Date Recorded Sex Assigned at Not on file Legal Sex Female 3:01 AM SQUADRON WORKER Gender Identity Not on file Sexual Orientation Not on file documented as of this encounter Plan of Treatment Not on file documented as of this encounter Visit Diagnoses Diagnosis Allergic rhinitis, cause unspecified- Primary Unspecified essential hypertension Pain in joint, lower leg documented in this encounter Care Teams Director On Air Relationship Specialty Start Date End Date Mau Terry MD [address] [place] [phone] PCP - General 02/28/06 07/12/14 documented as of this encounter
--- OUTSIDE RECORDS SUMMARY | 2024-11-15 20:46 | XMS_ITS | Encounter Summary ---
Author Organization [facility] Address [address] [place] [address] Care Team Providers Care Rail Car Unloader Name Role Phone Mau Terry MD Primary Care Provider [phone] Encounter Details Date Type Department Care Team (Late st Contact Info) Description 07/08/2002 Outpatient Historical [facility] Ruddy Calloway, Jonh Howell MD [address] [place] [phone] LUMP OR MASS IN BREAST (Primary Dx) Social History Tobacco Use Types Packs/Day Years Used Date Smoking Tobacco: Never Assessed Comments Unknown Sex and Gender Information Value Date Recorded Sex Assigned at Not on file Legal Sex Female 3:01 AM SCREEN MAKING SUPERVISOR Gender Identity Not on file Sexual Orientation Not on file documented as of this encounter Plan of Treatment Not on file documented as of this encounter Visit Diagnoses Diagnosis Lump or mass in breast- Primary documented in this encounter Care Teams Rail Car Unloader Relationship Specialty Start Date End Date Mau Terry MD [address] [place] [phone] PCP - General 02/28/06 07/12/14 documented as of this encounter
--- OUTSIDE RECORDS SUMMARY | 2024-11-15 20:46 | XMS_ITS | Encounter Summary ---
Author Organization [facility] Address [address] [place] [address] Care Team Providers Care Carding Machine Feeder Name Role Phone Mau Terry MD Primary Care Provider [phone] Encounter Details Date Type Department Care Team (Late st Contact Info) Description 04/30/2000 Outpatient Historical [facility] Facial Plastic Surgery- [address] [address] Social History Tobacco Use Types Packs/Day Years Used Date Smoking Tobacco: Never Assessed Comments Unknown Sex and Gender Information Value Date Recorded Sex Assigned at Not on file Legal Sex Female 3:01 AM BATCH WEIGHER Gender Identity Not on file Sexual Orientation Not on file documented as of this encounter Plan of Treatment Not on file documented as of this encounter Visit Diagnoses Not on filedocumented in this encounter Care Teams Carding Machine Feeder Relationship Specialty Start Date End Date Mau Terry MD [address] [place] [phone] PCP - General 02/28/06 07/12/14 documented as of this encounter
--- OUTSIDE RECORDS SUMMARY | 2024-11-15 20:46 | XMS_ITS | Encounter Summary ---
Author Organization [facility] Address [address] [place] [address] Care Team Providers Care Glass Tinter Name Role Phone Mau Terry MD Primary Care Provider [phone] Encounter Details Date Type Department Care Team (Latest Contact Info) Description 08/27/2002 Outpatient Historical [facility] [address] [place] [address] [place] [address] Chelita Luna, JUSTICE COURT JUDGE [address] [place] [address] HYPERSOMNI W SLEEP APNEA (Primary Dx) Social History Tobacco Use Types Packs/Day Years Used Date Smoking Tobacco: Never Assessed Comments Unknown Sex and Gender Information Value Date Recorded Sex Assigned at Not on file Legal Sex Female 3:01 AM BUNKER WORKER Gender Identity Not on file Sexual Orientation Not on file documented as of this encounter Plan of Treatment Not on file documented as of this encounter Visit Diagnoses Diagnosis Hypersomnia with sleep apnea, unspecified- Primary documented in this encounter Care Teams Glass Tinter Relationship Specialty Start Date End Date Mau Terry MD [address] [place] [phone] PCP - General 02/28/06 07/12/14 documented as of this encounter
--- OUTSIDE RECORDS SUMMARY | 2024-11-15 20:46 | XMS_ITS | Encounter Summary ---
Author Organization [facility] Address [address] [place] [address] Care Team Providers Care Administrative Services Manager Name Role Phone Mau Terry MD Primary Care Provider [phone] Encounter Details Date Type Department Care Team (Latest Contact Info) Description 05/10/2006 Outpatient [facility] Gastroenterology[address] [place] [address] Frederick Choudhury MD [address] [place] [address] Reflux Esophagitis (Primary Dx); Dysphagia Social History Tobacco Use Types Packs/Day Years Used Date Smoking Tobacco: Never Assessed Comments Unknown Sex and Gender Information Value Date Recorded Sex Assigned at Not on file Legal Sex Female 3:01 AM NETEZZA DEVELOPER Gender Identity Not on file Sexual Orientation Not on file documented as of this encounter Plan of Treatment Not on file documented as of this encounter Visit Diagnoses Diagnosis Reflux esophagitis- Primary Dysphagia documented in this encounter Care Teams Administrative Services Manager Relationship Specialty Start Date End Date Mau Terry MD [address] [place] [phone] PCP - General 02/28/06 07/12/14 documented as of this encounter
--- OUTSIDE RECORDS SUMMARY | 2024-11-15 20:46 | XMS_ITS | Clinical Summary ---
Author Organization [facility] Estela Tadeo [facility] Address [address] [place] [address] Care Team Providers Care Observation Assistant Name Role Phone Unavailable Primary Care Provider [...] flash glucose scanning reader (FreeStyle Lucila 2 [place]) Misc Use to check BG. 1 Each [...] DAILY 45 mL 3 2 Active Insulin [place], Disposable, (BD Alexus 2nd Gen Pen Needle) [...] of blood transfusion s as patient is Baptism 04/29/2012 01/01/2013 Abdominal or pelvic swelling , mass, or lump, other specified site 04/29/2012 05/27/2012 Rectal bleeding 04/18/2012 01/01/2013 Encounters Date Type Department Care Team Description 10/16/2024 2:18 PM CDT - 10/16/2024 11:59 PM CDT Hospital Encounter [facility] Therapy [place] [address] [facility] [address] [place] [address] Armando Wilkinson DO Peters, Jeffrey B, Physical Therapist Discharge Disposition: Home or Self Care 10/09/2024 2:30 PM CDT - 10/09/2024 11:59 PM CDT Hospital Encounter [facility] Therapy [place] [address] [facility] [address] [place] [address] Armando Wilkinson DO Peters, Jeffrey B, Physical Therapist Discharge Disposition: Home or Self Care 09/24/2024 2:20 PM CDT Office Visit [facility] Endocrinology [facility] [address] [place] [address] Carrie Osuna PA Type 2 diabetes mellitus with hyperglycemia, with long-term current use of insulin ([facility]) (Primary Dx) 09/16/2024 Telephone [facility] Endocrinology [facility] [address] [place] [address] Carrie Osuna PA Patient Communication (Called to remind about upcoming appointment date and time as requested by pt and . ) 09/12/2024 11:00 AM CDT - 09/12/2024 11:59 PM CDT Hospital Encounter [facility] Therapy [place] [address] [facility] [address] [place] [address] Armando Wilkinson DO Peters, Jeffrey B, Physical [...] on file Legal Sex Female 12:33 PM SYSTEMS ANALYSIS MANAGER Gender Identity Not on file Sexual Orientation Not on file Last Filed Vital Signs Vital Sign Reading Time Taken Comments Blood Pressure 120/80 09/24/2024 2:34 PM CDT Pulse 78 09/24/2024 2:34 PM CDT Temperature - - Respiratory Rate 16 06/01/2022 11:31 AM SYSTEMS ANALYSIS MANAGER Oxygen Saturation 98% 09/24/2024 2:34 PM CDT Inhaled Oxygen Concentration - - Weight 87.8 kg (193 lb 9.6 oz) 09/24/2024 2:34 P M CDT Height 160 cm (5' 3 ) 09/24/2024 2:34 PM CDT Body Mass Index 34.29 09/24/2024 2:34 PM CDT Plan of Treatment Upcoming Encounters Date Type Department Care Team (Late st Contact Info) Description 03/26/2025 1:20 PM SYSTEMS ANALYSIS MANAGER Office Visit [facility] Endocrinology [facility] [address] [facility] [place] [address] [place] [phone] Carrie Osuna PA [address] [facility] [address] [place] [address] Health Maintenance Due Date Last [...] Comments HEMOGLOBIN A1C Routine 06/23/2024 4:23 PM SYSTEMS ANALYSIS MANAGER Type 2 diabetes mellitus with hyperglycemia, with long-term current use of insulin ([facility]) LIPID PANEL Routine 03/17/2024 MICROALBUMIN/CREATIN INE RATIO, RANDOM UR Routine 07/06/2020 11:54 AM CDT HM DIABETES EYE EXAM 01/05/2020 12:00 AM CDT MAMMO SCREEN BILAT W OR WO CAD Routine 12/29/2011 2:40 PM CDT Other screening mammogram from Last 3 Months or Most Recently Relevant to Health Maintenance Results * (ABNORMAL) HEMOGLOBIN A1C (06/23/2024 4:23 PM SYSTEMS ANALYSIS MANAGER) [facility] HEMOGLOBIN A1C 12.4(H) <5.7 % of total Hgb [facility] Comment: For someone without known diabetes, [...] children. ESTIMATED AVERAGE GLUCOSE (MG/DL) 309 mg/dL [employer] ESTIMATED AVERAGE GLUCOSE (MMOL/L) 17.1 mmol/L [facility] Comment: FASTING:NO FASTING: NO Test Performed at: [facility] [address] [place] [address] Paramjit Salazar MD Blood 06/23/2024 4:23 PM SYSTEMS ANALYSIS MANAGER 06/23/2024 4:23 PM SYSTEMS ANALYSIS MANAGER Carrie WOODARD CHEMISTRY ORDERABLES Final Re sult [facility] [phone] [facility] [address] [place] [address] * LIPID PANEL (03/17/2024) [facility] ABSTRACTED CHOLESTEROL 245 ABSTRACTED TRIGLYCERIDE 387 ABSTRACTED HDL 41 ABSTRACTED LDL CALCULATED 127 Blood 03/17/2024 Abstract Provider CHEMISTRY ORDERABLES Final Res ult * (ABNORMAL) MICROALBUMIN/CREATININE RATIO, RANDOM UR (07/06/2020 11:54 AM CDT) [facility] MICROALBUMIN, URINE 38.3 No Reference Range mg/dL 07/06/2020 2:17 PM CDT [facility] CREATININE, URINE 75.3 29.0 - 226.0 mg/dL 07/06/2020 2:17 PM CDT [facility] Comment:Reference Range vari es with fluid intake and diet. MICROALBUMIN/ CREAT RATIO, UR 508.6(H) <25.0 mg/g 07/06/2020 2:17 PM CDT [facility] Urine URINE SPECIMEN OBTAINED BY CLEAN CATCH PROCEDURE / Unknown Collection / Unknown 07/06/2020 11:54 AM CDT 07/06/2020 12:19 PM CDT Narrative [facility]ARTLE[facility]O - 07/06/2020 2:17 PM CDT Condition Microalbumin/Creat ratio Normal Males <17 Normal Females <25 Microalbuminuria Males 17-299 Microalbuminuria Females 25-299 Overt proteinuria >=300 Corey Lou MD URINE ORDERABLES Final Result [facility] IA# [id number] [address] [place] [id number] * DIABETES EYE EXAM (01/05/2020 12:00 AM CDT) [facility] Scanning HEALTH MAINTENANCE Final Result * MAMMO [...] Most Recently Relevant to Health Maintenance Insurance [place] [address] MEDICARE HMO Advance Directives For more information, please contact: [phone] Documents on File Type Date Recorded Patient Design Checker Expl anation Advance Directive POA 07/06/2020 11:34 AM Advance Directive POA
--- OUTSIDE RECORDS SUMMARY | 2024-11-15 20:46 | XMS_ITS | Encounter Summary ---
Author Organization [facility] Address [address] [place] [address] Care Team Providers Care Applications Architect Name Role Phone Mau Terry MD Primary Care Provider [phone] Encounter Details Date Type Department Care Team (Latest Contact Info) Description 03/30/2004 Outpatient Historical [facility] Ear, Nose and Throat [address] [place] [address] [place] [address] Anselmo Lopez MD [address] [address] CONDUCT HEARING LOSS NOS (Primary Dx); PERIPHERAL VERTIGO NOS; IMPACTED CERUMEN; BENIGN PARXYSMAL VERTIGO Social History Tobacco Use Types Packs/Day Years Used Date Smoking Tobacco: Never Assessed Comments Unknown Sex and Gender Information Value Date Recorded Sex Assigned at Not on file Legal Sex Female 3:01 AM SNAKER Gender Identity Not on file Sexual Orientation Not on file documented as of this encounter Plan of Treatment Not on file documented as of this encounter Visit Diagnoses Diagnosis Unspecified conductive hearing loss- Primary Peripheral vertigo, unspecified Impacted cerumen Benign paroxysmal positional vertigo documented in this encounter Care Teams Applications Architect Relationship Specialty Start Date End Date Mau Terry MD [address] [place] [phone] PCP - General 02/28/06 07/12/14 documented as of this encounter
--- OUTSIDE RECORDS SUMMARY | 2024-11-15 20:46 | XMS_ITS | Encounter Summary ---
Author Organization [facility] Address [address] [place] [address] Care Team Providers Care Pie Bottomer Name Role Phone Mau Terry MD Primary Care Provider Encounter Details Date Type Department Care Team (Late st Contact Info) Description 01/19/2009 [facility]illary [facility] [address] [place] [address] Mau Terry MD [address] [place] [phone] Other Screening Mammogram Social History Tobacco Use Types Packs/Day Years Used Date Smoking Tobacco: Never Alcohol Use Standard Drinks/Week Comments No 0 (1 standard drink = 0.6 oz pur e alcohol) Comments No Sex and Gender Information Value Date Recorded Sex Assigned at Not on file Legal Sex Female 3:01 AM NUTRITION TECHNICIAN Gender Identity Not on file Sexual Orientation Not on file documented as of this encounter Plan of Treatment Not on file documented as of this encounter Visit Diagnoses Diagnosis Other screening mammogram documented in this encounter Care Teams Pie Bottomer Relationship Specialty Start Date End Date Mau Terry MD [address] [place] [phone] PCP - General 02/28/06 07/12/14 documented as of this encounter
--- OUTSIDE RECORDS SUMMARY | 2024-11-15 20:46 | XMS_ITS | Encounter Summary ---
Author Organization [facility] Address [address] [place] [address] Care Team Providers Care Research Physicist Name Role Phone Mau Terry MD Primary Care Provider [phone] Encounter Details Date Type Department Care Team (Latest Contact Info) Description 08/12/2002 Outpatient Historical [facility] Cardiology- [place] [address] [place] [address] Richard Cantor MD NO ADDRESS ON FILE PALPITATIONS (Primary Dx); PRECORDIAL PAIN Social History Tobacco Use Types Packs/Day Years Used Date Smoking Tobacco: Never Assessed Comments Unknown Sex and Gender Information Value Date Recorded Sex Assigned at Not on file Legal Sex Female 3:01 AM REGULATORY LEADER Gender Identity Not on file Sexual Orientation Not on file documented as of this encounter Plan of Treatment Not on file documented as of this encounter Visit Diagnoses Diagnosis Palpitations- Primary Precordial pain documented in this encounter Care Teams Research Physicist Relationship Specialty Start Date End Date Mau Terry MD [facility] [address] [place] [phone] PCP - General 02/28/06 07/12/14 documented as of this encounter
--- OUTSIDE RECORDS SUMMARY | 2024-11-15 20:46 | XMS_ITS | Encounter Summary ---
Author Organization [facility] Address [address] [place] [address] Care Team Providers Care Radar Repairer Name Role Phone Mau Terry MD Primary Care Provider [phone] Encounter Details Date Type Department Care Team (Latest Contact Info) Description 02/19/2004 Outpatient Historical [facility] Internal Medicine- [place] [address] [facility] [address] [place] [address] Russell Madrid MD [address] [place] [phone] HYPERTENSION NOS (Primary Dx) Social History Tobacco Use Types Packs/Day Years Used Date Smoking Tobacco: Never Assessed Comments Unknown Sex and Gender Information Value Date Recorded Sex Assigned at Not on file Legal Sex Female 3:01 AM TECHNICIAN SEMICONDUCTOR DEVELOPMENT Gender Identity Not on file Sexual Orientation Not on file documented as of this encounter Plan of Treatment Not on file documented as of this encounter Visit Diagnoses Diagnosis Unspecified essential hypertension- Primary documented in this encounter Care Teams Radar Repairer Relationship Specialty Start Date End Date Mau Terry MD [address] [place] [phone] PCP - General 02/28/06 07/12/14 documented as of this encounter
--- OUTSIDE RECORDS SUMMARY | 2024-11-15 20:46 | XMS_ITS | Encounter Summary ---
Author Organization [facility] Address [address] [place] [address] Care Team Providers Care Automatic Beading Lathe Operator Name Role Phone Mau Terry MD Primary Care Provider [phone] Encounter Details Date Type Department Care Team (Latest Contact Info) Description 04/08/2004 Outpatient Historical [facility] [address] [facility] [address] [place] [address] Jamey Fraga MD NO ADDRESS ON FILE SCREENING MAMM-MAILG NEOPL-OTHER (Primary Dx) Social History Tobacco Use Types Packs/Day Years Used Date Smoking Tobacco: Never Assessed Comments Unknown Sex and Gender Information Value Date Recorded Sex Assigned at Not on file Legal Sex Female 3:01 AM PERSONAL CAREGIVER Gender Identity Not on file Sexual Orientation Not on file documented as of this encounter Plan of Treatment Not on file documented as of this encounter Visit Diagnoses Diagnosis Other screening mammogram- Primary documented in this encounter Care Teams Automatic Beading Lathe Operator Relationship Specialty Start Date End Date Mau Terry MD [address] [place] [phone] PCP - General 02/28/06 07/12/14 documented as of this encounter
--- OUTSIDE RECORDS SUMMARY | 2024-11-15 20:46 | XMS_ITS | Encounter Summary ---
Author Organization [facility] Address [address] [place] [address] Care Team Providers Care Rear Load Truck Driver Name Role Phone Mau Terry MD Primary Care Provider [phone] Encounter Details Date Type Department Care Team (Latest Contact Info) Description 02/15/2005 Outpatient Historical [facility] Ear, Nose and Throat [address] [place] [address] [place] [address] [place] [address] Anselmo Lopez MD [address] [address] CONDUCT HEARING LOSS NOS (Primary Dx); HYPERTENSION NOS; SCREENING-LIPOID DISORDERS Social History Tobacco Use Types Packs/Day Years Used Date Smoking Tobacco: Never Assessed Comments Unknown Sex and Gender Information Value Date Recorded Sex Assigned at Not on file Legal Sex Female 3:01 AM PROSPECT MANAGER Gender Identity Not on file Sexual Orientation Not on file documented as of this encounter Plan of Treatment Not on file documented as of this encounter Visit Diagnoses Diagnosis Unspecified conductive hearing loss- Primary Unspecified essential hypertension Screening for lipoid disorders documented in this encounter Care Teams Rear Load Truck Driver Relationship Specialty Start Date End Date Mau Terry MD [address] [place] [phone] PCP - General 02/28/06 07/12/14 documented as of this encounter
--- OUTSIDE RECORDS SUMMARY | 2024-11-15 20:46 | XMS_ITS | Encounter Summary ---
Author Organization [facility] Address [address] [place] [address] Care Team Providers Care Inside Sales Account Executive Name Role Phone Mau Terry MD Primary Care Provider [phone] Encounter Details Date Type Department Care Team (Latest Contact Info) Description 02/29/2000 Outpatient Historical [facility] [address] [facility] [address] [place] [address] Bryanna Bui MD NO ADDRESS ON FILE Lump or mass in breast (Primary Dx) Social History Tobacco Use Types Packs/Day Years Used Date Smoking Tobacco: Never Assessed Comments Unknown Sex and Gender Information Value Date Recorded Sex Assigned at Not on file Legal Sex Female 3:01 AM FASHION DIRECTOR Gender Identity Not on file Sexual Orientation Not on file documented as of this encounter Plan of Treatment Not on file documented as of this encounter Visit Diagnoses Diagnosis Lump or mass in breast- Primary documented in this encounter Care Teams Inside Sales Account Executive Relationship Specialty Start Date End Date Mau Terry MD [address] [place] [phone] PCP - General 02/28/06 07/12/14 documented as of this encounter
--- OUTSIDE RECORDS SUMMARY | 2024-11-15 20:46 | XMS_ITS | Encounter Summary ---
Author Organization [facility] Address [address] [place] [address] Care Team Providers Care Associate Counsel Name Role Phone Mau Terry MD Primary Care Provider [phone] Encounter Details Date Type Department Care Team (Latest Contact Info) Description 03/16/2006 Outpatient Historical [facility] [address] [facility] [address] [place] [address] Jamey Fraga MD NO ADDRESS ON FILE Other Screening Mammogram (Primary Dx) Social History Tobacco Use Types Packs/Day Years Used Date Smoking Tobacco: Never Assessed Comments Unknown Sex and Gender Information Value Date Recorded Sex Assigned at Not on file Legal Sex Female 3:01 AM CATAPULT AND ARRESTING GEAR OFFICER Gender Identity Not on file Sexual Orientation Not on file documented as of this encounter Plan of Treatment Not on file documented as of this encounter Visit Diagnoses Diagnosis Other screening mammogram- Primary documented in this encounter Care Teams Associate Counsel Relationship Specialty Start Date End Date Mau Terry MD [address] [place] [phone] PCP - General 02/28/06 07/12/14 documented as of this encounter
--- OUTSIDE RECORDS SUMMARY | 2024-11-15 20:46 | XMS_ITS | Encounter Summary ---
Author Organization [facility] Address [address] [place] [address] Care Team Providers Care Telephoner Name Role Phone Mau Terry MD Primary Care Provider [phone] Encounter Details Date Type Department Care Team (Latest Contact Info) Description 03/28/2006 Outpatient Historical [facility] Medicine-[place] [address] [place] [address] Mau Terry MD [address] [place] [phone] Unspecified Essential Hypertension (Primary Dx); DM w/o Complication Type II (CMS/HCC); Vaccin Strep Pneumoniae; Vaccine for influenza Social History Tobacco Use Types Packs/Day Years Used Date Smoking Tobacco: Never Assessed Comments Unknown Sex and Gender Information Value Date Recorded Sex Assigned at Not on file Legal Sex Female 3:01 AM RAILROAD ACCOUNTANT Gender Identity Not on file Sexual Orientation [...] influenza documented in this encounter Care Teams Telephoner Relationship Specialty Start Date End Date Mau Terry MD [address] [place] [phone] PCP - General 02/28/06 07/12/14 documented as of this encounter
--- OUTSIDE RECORDS SUMMARY | 2024-11-15 20:46 | XMS_ITS | Encounter Summary ---
Author Organization [facility] Address [address] [place] [address] Care Team Providers Care Group Sales Representative Name Role Phone Mau Terry MD Primary Care Provider [phone] Encounter Details Date Type Department Care Team (Latest Contact Info) Description 01/03/2004 Outpatient Historical [facility]ulance [address] [place] [address] AMBULANCE, [facility] CONCUSSION W LOC UP TO 30 MIN (Primary Dx) Social History Tobacco Use Types Packs/Day Years Used Date Smoking Tobacco: Never Assessed Comments Unknown Sex and Gender Information Value Date Recorded Sex Assigned at Not on file Legal Sex Female 3:01 AM EMPLOYMENT LAW ATTORNEY Gender Identity Not on file Sexual Orientation Not on file documented as of this encounter Plan of Treatment Not on file documented as of this encounter Visit Diagnoses Diagnosis Concussion with loss of consciousness of 30 minutes or less- Primary documented in this encounter Care Teams Group Sales Representative Relationship Specialty Start Date End Date Mau Terry MD [address] [place] [phone] PCP - General 02/28/06 07/12/14 documented as of this encounter
--- OUTSIDE RECORDS SUMMARY | 2024-11-15 20:46 | XMS_ITS | Encounter Summary ---
Author Organization [facility] Address [address] [place] [address] Care Team Providers Care Refinery Pipeline Operator Name Role Phone Mau Terry MD Primary Care Provider [phone] Encounter Details Date Type Department Care Team (Late st Contact Info) Description 01/19/2004 Outpatient Historical [facility] General and Trauma Surgery-[address] [place] [address] Alejo Burton MD [address] [facility] [address] [place] [phone] LATE EFFEC SKULL/FACE FX (Primary Dx); HYPERTENSION NOS; OTHER MALAISE AND FATIGUE Social History Tobacco Use Types Packs/Day Years Used Date Smoking Tobacco: Never Assessed Comments Unknown Sex and Gender Information Value Date Recorded Sex Assigned at Not on file Legal Sex Female 3:01 AM WELDING MANAGER Gender Identity Not on file Sexual Orientation Not on file documented as of this encounter Plan of Treatment Not on file documented as of this encounter Visit Diagnoses Diagnosis Late effect of fracture of skull and face bones- Primary Unspecified essential hypertension Other malaise and fatigue documented in this encounter Care Teams Refinery Pipeline Operator Relationship Specialty Start Date End Date Mau Teryr MD [address] [place] [phone] PCP - General 02/28/06 07/12/14 documented as of this encounter
--- OUTSIDE RECORDS SUMMARY | 2024-11-15 20:46 | XMS_ITS | Encounter Summary ---
Author Organization [facility] Address [address] [place] [address] Care Team Providers Care Multiple Wire Sawyer Name Role Phone Mau Terry MD Primary Care Provider [phone] Encounter Details Date Type Department Care Team (Late st Contact Info) Description 08/27/2002 Outpatient Historical [facility] [address] [place] [address] [place] [address] Jonh Fox Jr., MD [address] [place] [phone] RESPIRATORY ABNORM NEC (Primary Dx) Social History Tobacco Use Types Packs/Day Years Used Date Smoking Tobacco: Never Assessed Comments Unknown Sex and Gender Information Value Date Recorded Sex Assigned at Not on file Legal Sex Female 3:01 AM GAUGER CHIEF DELIVERY Gender Identity Not on file Sexual Orientation Not on file documented as of this encounter Plan of Treatment Not on file documented as of this encounter Visit Diagnoses Diagnosis Other dyspnea and respiratory abnormality- Primary documented in this encounter Care Teams Multiple Wire Sawyer Relationship Specialty Start Date End Date Mau Terry MD [address] [place] [phone] PCP - General 02/28/06 07/12/14 documented as of this encounter
--- OUTSIDE RECORDS SUMMARY | 2024-11-15 20:46 | XMS_ITS | Encounter Summary ---
Author Organization [facility] Address [address] [place] [address] Care Team Providers Care Plumbing Manager Name Role Phone Mau Terry MD Primary Care Provider [phone] Encounter Details Date Type Department Care Team (Latest Contact Info) Description 01/03/2004 Outpatient Historical [facility] [address] [place] [address] AMBULANCE, 2 [facility] OPEN WOUND SCALP-COMPL (Primary Dx) Social History Tobacco Use Types Packs/Day Years Used Date Smoking Tobacco: Never Assessed Comments Unknown Sex and Gender Information Value Date Recorded Sex Assigned at Not on file Legal Sex Female 3:01 AM ICE SELLER Gender Identity Not on file Sexual Orientation Not on file documented as of this encounter Plan of Treatment Not on file documented as of this encounter Visit Diagnoses Diagnosis Open wound of scalp, complicated- Primary documented in this encounter Care Teams Plumbing Manager Relationship Specialty Start Date End Date Mau Terry MD [address] [place] [phone] PCP - General 02/28/06 07/12/14 documented as of this encounter
--- OUTSIDE RECORDS SUMMARY | 2024-11-15 20:46 | XMS_ITS | Encounter Summary ---
Author Organization [facility] Address [address] [place] [address] Care Team Providers Care Service Desk Lead Name Role Phone Mau Terry MD Primary Care Provider [phone] Encounter Details Date Type Department Care Team (Latest Contact Info) Description 02/16/1998 Outpatient Historical [facility] Cardiology- [place] [address] [place] [address] Obed Mejia MD [address] [facility] [address] [place] [address] Palpitations (Primary Dx) Social History Tobacco Use Types Packs/Day Years Used Date Smoking Tobacco: Never Assessed Comments Unknown Sex and Gender Information Value Date Recorded Sex Assigned at Not on file Legal Sex Female 3:01 AM SALES OPERATIONS ANALYST Gender Identity Not on file Sexual Orientation Not on file documented as of this encounter Plan of Treatment Not on file documented as of this encounter Visit Diagnoses Diagnosis Palpitations- Primary documented in this encounter Care Teams Service Desk Lead Relationship Specialty Start Date End Date Mau Terry MD [address] [place] [phone] PCP - General 02/28/06 07/12/14 documented as of this encounter
--- OUTSIDE RECORDS SUMMARY | 2024-11-15 20:46 | XMS_ITS | Encounter Summary ---
Author Organization [facility] Address [address] [place] [address] Care Team Providers Care Plasterer Helper Name Role Phone Mau Terry MD Primary Care Provider [phone] Encounter Details Date Type Department Care Team (Latest Contact Info) Description 03/03/2004 Outpatient Historical [facility] [address] [place] [address] Jose Tatum MD [address] [address] CLOSE SKULL FRACTURE NEC (CMS/[facility]) (Primary Dx) Social History Tobacco Use Types Packs/Day Years Used Date Smoking Tobacco: Never Assessed Comments Unknown Sex and Gender Information Value Date Recorded Sex Assigned at Not on file Legal Sex Female 3:01 AM CANDY PULLER Gender Identity Not on file Sexual Orientation Not on file documented as of this encounter Plan of Treatment Not on file documented as of this encounter Visit Diagnoses Diagnosis Other closed skull fracture without mention of intracranial injury, unspecified state of consciousness- Primary documented in this encounter Care Teams Plasterer Helper Relationship Specialty Start Date End Date Mau Terry MD [address] [place] [phone] PCP - General 02/28/06 07/12/14 documented as of this encounter
--- OUTSIDE RECORDS SUMMARY | 2024-11-15 20:46 | XMS_ITS | Encounter Summary ---
Author Organization [facility] Address [address] [place] [address] Care Team Providers Care Vacuum Drum Drier Operator Name Role Phone Mau Terry MD Primary Care Provider [phone] Encounter Details Date Type Department Care Team (Latest Contact Info) Description 03/16/2006 Outpatient [facility] Breast Center [facility] [address] [place] [address] Mau Terry MD [address] [place] [phone] Other Screening Mammogram (Primary Dx) Social History Tobacco Use Types Packs/Day Years Used Date Smoking Tobacco: Never Assessed Comments Unknown Sex and Gender Information Value Date Recorded Sex Assigned at Not on file Legal Sex Female 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
--- OUTSIDE RECORDS SUMMARY | 2024-11-15 20:46 | XMS_ITS | Encounter Summary ---
Author Organization [facility] Address [address] [place] [address] Care Team Providers Care Pipeline Dispatcher Name Role Phone Mau Terry MD Primary Care Provider [phone] Encounter Details Date Type Department Care Team (Latest Contact Info) Description 06/08/2004 Outpatient Historical [facility] [address] [place] [address] [place] [address] Sven Kimball [place] NO ADDRESS ON FILE SEBORRHEIC KERATOSIS INFLAMED (Primary Dx) Social History Tobacco Use Types Packs/Day Years Used Date Smoking Tobacco: Never Assessed Comments Unknown Sex and Gender Information Value Date Recorded Sex Assigned at Not on file Legal Sex Female 3:01 AM EXPERIMENTAL ASSEMBLER Gender Identity Not on file Sexual Orientation Not on file documented as of this encounter Plan of Treatment Not on file documented as of this encounter Visit Diagnoses Diagnosis Inflamed seborrheic keratosis- Primary documented in this encounter Care Teams Pipeline Dispatcher Relationship Specialty Start Date End Date Mau Terry MD [address] [place] [phone] PCP - General 02/28/06 07/12/14 documented as of this encounter
--- OUTSIDE RECORDS SUMMARY | 2024-11-15 20:46 | XMS_ITS | Encounter Summary ---
Author Organization [facility] Address [address] [place] [address] Care Team Providers Care Quality Analyst/Technical Writer Name Role Phone Mau Terry MD Primary Care Provider [phone] Encounter Details Date Type Department Care Team (Latest Contact Info) Description 05/10/2006 Outpatient Historical [facility] Endoscopy [place] [address] [place] [address] Frederick Choudhury MD [address] [place] [phone] Dysphagia (Primary Dx) Social History Tobacco Use Types Packs/Day Years Used Date Smoking Tobacco: Never Assessed Comments Unknown Sex and Gender Information Value Date Recorded Sex Assigned at Not on file 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
--- OUTSIDE RECORDS SUMMARY | 2024-11-15 20:46 | XMS_ITS | Encounter Summary ---
Author Organization [facility] Address [address] [place] [address] Care Team Providers Care Peg Driver Name Role Phone Mau Terry MD Primary Care Provider [phone] Encounter Details Date Type Department Care Team (Latest Contact Info) Description 01/28/2004 Outpatient [facility] [address] [place] [address] [facility] [address] [place] [address] Jose Tatum MD [address] [place] [address] [place] [address] AFT CARE HEAL TRAUM FRAC OTHER BONE (Primary Dx) Social History Tobacco Use Types Packs/Day Years Used Date Smoking Tobacco: Never Assessed Comments Unknown Sex and Gender Information Value Date Recorded Sex Assigned at Not on file Legal Sex Female 3:01 AM FLOUR BLENDER Gender Identity Not on file Sexual Orientation Not on file documented as of this encounter Plan of Treatment Not on file documented as of this encounter Visit Diagnoses Diagnosis Aftercare for healing traumatic fracture of other bone- Primary documented in this encounter Care Teams Peg Driver Relationship Specialty Start Date End Date Mau Terry MD [address] [place] [phone] PCP - General 02/28/06 07/12/14 documented as of this encounter
--- OUTSIDE RECORDS SUMMARY | 2024-11-15 20:46 | XMS_ITS | Encounter Summary ---
Author Organization [facility] Address [address] [place] [address] Care Team Providers Care Reinsurance Analyst Name Role Phone Mau Terry MD Primary Care Provider [phone] Encounter Details Date Type Department Care Team (Latest Contact Info) Description 09/13/2004 Outpatient Historical [facility] Medicine- [place] [address] [place] [phone] Sven Kimball, [place] NO ADDRESS ON FILE OTHER UNSPEC SLEEP APNEA (Primary Dx); UNCERTAIN BEHAV NEOPL SKIN Social History Tobacco Use Types Packs/Day Years Used Date Smoking Tobacco: Never Assessed Comments Unknown Sex and Gender Information Value Date Recorded Sex Assigned at Not on file Legal Sex Female 3:01 AM LENS MATCHER Gender Identity Not on file Sexual Orientation Not on file documented as of this encounter Plan of Treatment Not on file documented as of this encounter Visit Diagnoses Diagnosis Unspecified sleep apnea- Primary Neoplasm of uncertain behavior of skin documented in this encounter Care Teams Reinsurance Analyst Relationship Specialty Start Date End Date Mau Terry MD [address] [place] [phone] PCP - General 02/28/06 07/12/14 documented as of this encounter
--- OUTSIDE RECORDS SUMMARY | 2024-11-15 20:46 | XMS_ITS | Encounter Summary ---
Author Organization [facility] Address [address] [place] [address] Care Team Providers Care Inspector Agricultural Commodities Name Role Phone Mau Terry MD Primary Care Provider [phone] Reason for Referral * Outpatient Services (Routine) - Closed Specialty Diagnoses / Procedures Referred By Contac t Referred To Contact Diagnoses Lump or mass in breast Procedures MAMMO DIGITAL DIAG BILAT Mau Terry MD [address] [place] [phone] Phone: tel: fax: Referral ID Status Reason Start Date Expiration Date Visits Re quested Visits Authorized [id number] Closed 11/30/2010 11/30/2011 1 1 Encounter Details Date Type Department Care Team (Late st Contact Info) Description 11/30/2010 Ancillary Orders [facility] [address] [phone] Mau Terry MD [address] [place] [phone] Lump or mass in breast Social History Tobacco Use Types Packs/Day Years Used Date Smoking Tobacco: Never Smokeless Tobacco: Never Alcohol Use Standard Drinks/Week Comments No 0 (1 standard drink = 0.6 oz pur e alcohol) Comments No Sex and Gender Information Value Date Recorded Sex Assigned at Not on file Legal Sex Female 3:01 AM NURSING CLINICAL DIRECTOR Gender Identity Not on file Sexual [...] by the Computer Aided Detection System (CAD), [employer] ImageFlodesign Sonicscker, Version 8.3. RIGHT BREAST ULTRASOUND: Sonographic evaluation [...] and calcifications are stable with the study [id number]. On the right, the distribution of the tissue appears to be stable as well.The tissue is heterogeneously dense. Scattered areas of nodularity areidentified but no discrete or worrisome mass was noted. Furtherevaluation sonographically was carried out. This digital mammogram was also analyzed by the Computer Aided DetectionSystem (CAD), [employer] ImageChecker, Version 8.3. RIGHT BREAST ULTRASOUND: Sonographic [...] breast documented in this encounter Care Teams Inspector Agricultural Commodities Relationship Specialty Start Date End Date Mau Terry MD [address] [place] [phone] PCP - General 02/28/06 07/12/14 documented as of this encounter
--- OUTSIDE RECORDS SUMMARY | 2024-11-15 20:46 | XMS_ITS | Encounter Summary ---
Author Organization [facility] Address [address] [place] [address] Care Team Providers Care Laboratory Clerk Name Role Phone Mau Terry MD Primary Care Provider [phone] Encounter Details Date Type Department Care Team (Late st Contact Info) Description 06/19/2007 Outpatient Historical [facility] [address] [facility] [address] [place] [address] Social History Tobacco Use Types Packs/Day Years Used Date Smoking Tobacco: Never Assessed Comments Unknown Sex and Gender Information Value Date Recorded Sex Assigned at Not on file Legal Sex Female 3:01 AM CHYRON OPERATOR Gender Identity Not on file Sexual Orientation Not on file documented as of this encounter Plan of Treatment Not on file documented as of this encounter Visit Diagnoses Not on filedocumented in this encounter Care Teams Laboratory Clerk Relationship Specialty Start Date End Date Mau Terry MD [facility] [address] [place] [phone] PCP - General 02/28/06 07/12/14 documented as of this encounter
--- OUTSIDE RECORDS SUMMARY | 2024-11-15 20:46 | XMS_ITS | Encounter Summary ---
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) Social History Tobacco Use Types Packs/Day Years Used Date Smoking Tobacco: Never Assessed Comments Unknown Sex and Gender Information Value Date Recorded Sex Assigned at Not on file Legal Sex Female 3:01 AM MANAGER DEVELOPMENTAL Gender Identity Not on file Sexual Orientation Not on file documented as of this encounter Plan of Treatment Not on file documented as of this encounter Visit Diagnoses Diagnosis 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
--- OUTSIDE RECORDS SUMMARY | 2024-11-15 20:46 | XMS_ITS | Encounter Summary ---
Author Organization [facility] Address [address] [place] [address] Care Team Providers Care Senior Solutions Workflow Consultant Name Role Phone Mau Terry MD Primary Care Provider [phone] Encounter Details Date Type Department Care Team (Latest Contact Info) Description 01/13/2004 Outpatient Historical [facility] Medicine [place] [address] [facility] [address] [place] [phone] Sven Kimball, [place] NO ADDRESS ON FILE HEAD INJURY UNSPECIFIED (Primary Dx); HEADACHE; NAUSEA ALONE; OTHER MALAISE AND FATIGUE Social History Tobacco Use Types Packs/Day Years Used Date Smoking Tobacco: Never Assessed Comments Unknown Sex and Gender Information Value Date Recorded Sex Assigned at Not on file Legal Sex Female 3:01 AM LOW PRESSURE KETTLE OPERATOR Gender Identity Not on file Sexual Orientation Not on file documented as of this encounter Plan of Treatment Not on file documented as of this encounter Visit Diagnoses Diagnosis Head injury, unspecified- Primary Headache(784.0) Headache Nausea alone Other malaise and fatigue documented in this encounter Care Teams [employer] Solutions Workflow Consultant Relationship Specialty Start Date End Date Mau Terry MD [address] [place] [phone] PCP - General 02/28/06 07/12/14 documented as of this encounter
--- OUTSIDE RECORDS SUMMARY | 2024-11-15 20:46 | XMS_ITS | Encounter Summary ---
Author Organization [employer] [facility] Address [address] [place] [address] Care Team Providers Care Control Room Technician Name Role Phone Mau Terry MD Primary Care Provider [phone] Encounter Details Date Type Department Care Team (Latest Contact Info) Description 04/08/2004 Outpatient [facility] Breast Center [facility] [address] [place] [address] [place]ien[place], NO ADDRESS ON FILE SCREENING MAMM-MAILG NEOPL-OTHER (Primary Dx) Social History Tobacco Use Types Packs/Day Years Used Date Smoking Tobacco: Never Assessed Comments Unknown Sex and Gender Information Value Date Recorded Sex Assigned at Not on file Legal Sex Female 3:01 AM ELEVATOR BUILDER Gender Identity Not on file Sexual Orientation Not on file documented as of this encounter Plan of Treatment Not on file documented as of this encounter Visit Diagnoses Diagnosis Other screening mammogram- Primary documented in this encounter Care Teams Control Room Technician Relationship Specialty Start Date End Date Mau Terry MD [facility] [address] [place] [phone] PCP - General 02/28/06 07/12/14 documented as of this encounter
--- OUTSIDE RECORDS SUMMARY | 2024-11-15 20:46 | XMS_ITS | Encounter Summary ---
Author Organization [facility] Address [address] [place] [address] Care Team Providers Care Kitchen Worker Name Role Phone Mau Terry MD Primary Care Provider [phone] Encounter Details Date Type Department Care Team (Latest Contact Info) Description 11/30/2004 Outpatient Historical [facility] Medicine [place] [address] [facility] [address] [place] [phone] Sven Kimball PA NO ADDRESS ON FILE OTHER MALAISE AND FATIGUE (Primary Dx); HYPERTENSION NOS Social History Tobacco Use Types Packs/Day Years Used Date Smoking Tobacco: Never Assessed Comments Unknown Sex and Gender Information Value Date Recorded Sex Assigned at Not on file Legal Sex Female 3:01 AM HAIR PREPARER Gender Identity Not on file Sexual Orientation Not on file documented as of this encounter Plan of Treatment Not on file documented as of this encounter Visit Diagnoses Diagnosis Other malaise and fatigue- Primary Unspecified essential hypertension documented in this encounter Care Teams Kitchen Worker Relationship Specialty Start Date End Date Mau Terry MD [address] [place] [phone] PCP - General 02/28/06 07/12/14 documented as of this encounter
--- OUTSIDE RECORDS SUMMARY | 2024-11-15 20:46 | XMS_ITS | Encounter Summary ---
Author Organization [facility] Address [address] [place] [address] Care Team Providers Care Sales Driver Name Role Phone Mau Terry MD Primary Care Provider [phone] Encounter Details Date Type Department Care Team (Latest Contact Info) Description 08/22/2002 Outpatient Historical [facility] Ear, Nose and Th[facility]at [address] [place] [address] [place] [phone] Jc Batrh MD NO ADDRESS ON FILE CONDUCT HEARING LOSS NOS (Primary Dx); ALLERGIC RHINITIS NOS Social History Tobacco Use Types Packs/Day Years Used Date Smoking Tobacco: Never Assessed Comments Unknown Sex and Gender Information Value Date Recorded Sex Assigned at Not on file Legal Sex Female 3:01 AM BODY MAKER Gender Identity Not on file Sexual Orientation Not on file documented as of this encounter Plan of Treatment Not on file documented as of this encounter Visit Diagnoses Diagnosis Unspecified conductive hearing loss- Primary Allergic rhinitis, cause unspecified documented in this encounter Care Teams Sales Driver Relationship Specialty Start Date End Date Mau Terry MD [address] [place] [phone] PCP - General 02/28/06 07/12/14 documented as of this encounter
--- OUTSIDE RECORDS SUMMARY | 2024-11-15 20:46 | XMS_ITS | Encounter Summary ---
Author Organization [facility] Address [address] [place] [address] Care Team Providers Care Chainstitch Binder Name Role Phone Mau Terry MD Primary Care Provider [phone] Encounter Details Date Type Department Care Team (Latest Contact Info) Description 05/04/2004 Outpatient Historical [facility] Medicine [place] [address] [facility] 60 [place] [phone] Sven Kimball, PA NO ADDRESS ON FILE HYPERTENSION NOS (Primary Dx); SKIN DISORDER NOS; HEAD INJURY UNSPECIFIED Social History Tobacco Use Types Packs/Day Years Used Date Smoking Tobacco: Never Assessed Comments Unknown Sex and Gender Information Value Date Recorded Sex Assigned at Not on file Legal Sex Female 3:01 AM WOODEN TANK ERECTOR Gender Identity Not on file Sexual Orientation Not on file documented as of this encounter Plan of Treatment Not on file documented as of this encounter Visit Diagnoses Diagnosis Unspecified essential hypertension- Primary Unspecified disorder of skin and subcutaneous tissue Head injury, unspecified documented in this encounter Care Teams Chainstitch Binder Relationship Specialty Start Date End Date Mau Terry MD [address] [place] [phone] PCP - General 02/28/06 07/12/14 documented as of this encounter
--- OUTSIDE RECORDS SUMMARY | 2024-11-15 20:46 | XMS_ITS | Encounter Summary ---
Author Organization [facility] Address [address] [place] [address] Care Team Providers Care Nurse Charge Rn Name Role Phone Mau Terry MD Primary Care Provider [phone] Encounter Details Date Type Department Care Team (Latest Contact Info) Description 05/24/2005 Outpatient Historical [facility] Medicine [place] [address] [facility] 60 [place] [phone] Sven Kimball, PA NO ADDRESS ON FILE SWELLING OF LIMB (Primary Dx); Plantar fibromatosis; HYPERTENSION NOS Social History Tobacco Use Types Packs/Day Years Used Date Smoking Tobacco: Never Assessed Comments Unknown Sex and Gender Information Value Date Recorded Sex Assigned at Not on file Legal Sex Female 3:[address] Gender Identity Not on file Sexual Orientation Not on file documented as of this encounter Plan of Treatment Not on file documented as of this encounter Visit Diagnoses Diagnosis Swelling of limb- Primary Plantar fibromatosis Plantar fascial fibromatosis Unspecified essential hypertension documented in this encounter Care Teams Nurse Charge Rn Relationship Specialty Start Date End Date Mau Terry MD [address] [place] [phone] PCP - General 02/28/06 07/12/14 documented as of this encounter
--- OUTSIDE RECORDS SUMMARY | 2024-11-15 20:46 | XMS_ITS | Encounter Summary ---
Author Organization [facility] Address [address] [place] [address] Care Team Providers Care Qa Lead Name Role Phone Mau Terry MD Primary Care Provider [phone] Encounter Details Date Type Department Care Team (Latest Contact Info) Description 09/21/2004 Outpatient Historical [facility] Medicine [place] [address] [facility] 60 [place] [phone] Sven Kimball PA NO ADDRESS ON FILE HEADACHE (Primary Dx) Social History Tobacco Use Types Packs/Day Years Used Date Smoking Tobacco: Never Assessed Comments Unknown Sex and Gender Information Value Date Recorded Sex Assigned at Not on file Legal Sex Female 3:01 AM LINING CASER Gender Identity Not on file Sexual Orientation Not on file documented as of this encounter Plan of Treatment Not on file documented as of this encounter Visit Diagnoses Diagnosis Headache(784.0)- Primary Headache documented in this encounter Care Teams Qa Lead Relationship Specialty Start Date End Date Mau Terry MD [facility] [address] [place] [phone] PCP - General 02/28/06 07/12/14 documented as of this encounter
--- OUTSIDE RECORDS SUMMARY | 2024-11-15 20:46 | XMS_ITS | Encounter Summary ---
Author Organization [facility] Address [address] [place] [address] Care Team Providers Care Forest Management Professor Name Role Phone Mau Terry MD Primary Care Provider [phone] Encounter Details Date Type Department Care Team (Latest Contact Info) Description 08/27/2004 Outpatient Historical [facility] [address] [place] [address] AMBULANCE, [facility] ELB/FOREARM/WRST INJURY NOS (Primary Dx) Social History Tobacco Use Types Packs/Day Years Used Date Smoking Tobacco: Never Assessed Comments Unknown Sex and Gender Information Value Date Recorded Sex Assigned at Not on file Legal Sex Female 3:01 AM NETWORK ADMINISTRATOR Gender Identity Not on file Sexual Orientation Not on file documented as of this encounter Plan of Treatment Not on file documented as of this encounter Visit Diagnoses Diagnosis Injury, other and unspecified, elbow, forearm, and wrist- Primary documented in this encounter Care Teams Forest Management Professor Relationship Specialty Start Date End Date Mau Terry MD [address] [place] [phone] PCP - General 02/28/06 07/12/14 documented as of this encounter
--- OUTSIDE RECORDS SUMMARY | 2024-11-15 20:46 | XMS_ITS | Encounter Summary ---
Author Organization [facility] Address [address] [place] [address] Care Team Providers Care Dry Starch Operator Name Role Phone Mau Terry MD Primary Care Provider [phone] Encounter Details Date Type Department Care Team (Latest Contact Info) Description 03/30/2004 Outpatient Historical [facility] Ear, Nose and Throat [address] [place] [address] [place] [address] Anselmo Lopez MD [address] [phone] PERIPHERAL VERTIGO NOS (Primary Dx); BENIGN PARXYSMAL VERTIGO; CONDUCT HEARING LOSS NOS; IMPACTED CERUMEN Social History Tobacco Use Types Packs/Day Years Used Date Smoking Tobacco: Never Assessed Comments Unknown Sex and Gender Information Value Date Recorded Sex Assigned at Not on file Legal Sex Female 3:01 AM PRODUCTION GENERALIST Gender Identity Not on file Sexual Orientation Not on file documented as of this encounter Plan of Treatment Not on file documented as of this encounter Visit Diagnoses Diagnosis Peripheral vertigo, unspecified- Primary Benign paroxysmal positional vertigo Unspecified conductive hearing loss Impacted cerumen documented in this encounter Care Teams Dry Starch Operator Relationship Specialty Start Date End Date Mau Terry MD [address] [place] [phone] PCP - General 02/28/06 07/12/14 documented as of this encounter
--- OUTSIDE RECORDS SUMMARY | 2024-11-15 20:46 | XMS_ITS | Encounter Summary ---
Author Organization [facility] Address [address] [place] [address] Care Team Providers Care Engraver Tire Mold Name Role Phone Mau Terry MD Primary Care Provider [phone] Encounter Details Date Type Department Care Team (Latest Contact Info) Description 03/02/2000 Outpatient Historical [facility] Jonh Fox Jr., MD [address] [place] [phone] Unspecified essential hypertension (Primary Dx); Obesity, unspecified Social History Tobacco Use Types Packs/Day Years Used Date Smoking Tobacco: Never Assessed Comments Unknown Sex and Gender Information Value Date Recorded Sex Assigned at Not on file Legal Sex Female 3:01 AM BLOCK SAW OPERATOR Gender Identity Not on file Sexual Orientation Not on file documented as of this encounter Plan of Treatment Not on file documented as of this encounter Visit Diagnoses Diagnosis Unspecified essential hypertension- Primary Obesity, unspecified documented in this encounter Care Teams Engraver Tire Mold Relationship Specialty Start Date End Date Mau Terry MD [address] [place] [phone] PCP - General 02/28/06 07/12/14 documented as of this encounter
--- OUTSIDE RECORDS SUMMARY | 2024-11-15 20:46 | XMS_ITS | Encounter Summary ---
Author Organization [facility] Address [address] [place] [address] Care Team Providers Care Junior Electrical Engineer Name Role Phone Mau Terry MD Primary Care Provider [phone] Encounter Details Date Type Department Care Team (Latest Contact Info) Description 02/08/2005 Outpatient Historical [facility] Medicine [place] [address] [facility] 60 [place] [phone] Sven Kimball, PA NO ADDRESS ON FILE ELEV TRANSAMINASE/LDH (Primary Dx); Plantar fibromatosis; PURE HYPERGLYCERIDEMIA; Pain in limb Social History Tobacco Use Types Packs/Day Years Used Date Smoking Tobacco: Never Assessed Comments Unknown Sex and Gender Information Value Date Recorded Sex Assigned at Not on file Legal Sex Female 3:01 AM STUDENT ACCOUNTS COORDINATOR Gender Identity Not on file Sexual [...] limb documented in this encounter Care Teams Junior Electrical Engineer Relationship Specialty Start Date End Date Mau Terry MD [address] [place] [phone] PCP - General 02/28/06 07/12/14 documented as of this encounter
--- OUTSIDE RECORDS SUMMARY | 2024-11-15 20:46 | XMS_ITS | Encounter Summary ---
Author Organization [facility] Address [address] [place] [address] Care Team Providers Care Dinkey Engine Firer/Fireman Name Role Phone Mau Terry MD Primary Care Provider [phone] Encounter Details Date Type Department Care Team (Late st Contact Info) Description 01/03/2004 Inpatient Historical [facility] Alejo Burton MD [address] [address] CLOSE SKULL BASE FX/BRF COMA (CMS/HCC) (Primary Dx) Social History Tobacco Use Types Packs/Day Years Used Date Smoking Tobacco: Never Assessed Comments Unknown Sex and Gender Information Value Date Recorded Sex Assigned at Not on file 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
--- OUTSIDE RECORDS SUMMARY | 2024-11-15 20:46 | XMS_ITS | Encounter Summary ---
Author Organization [facility] Address [address] [place] [address] Care Team Providers Care Call Centre Supervisor Name Role Phone Mau Terry MD Primary Care Provider [phone] Encounter Details Date Type Department Care Team (Late st Contact Info) Description 04/26/2007 Outpatient [facility] [address] 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
--- OUTSIDE RECORDS SUMMARY | 2024-11-15 20:46 | XMS_ITS | Encounter Summary ---
Author Organization [facility] Address [address] [place] [address] Care Team Providers Care Balance Truer Name Role Phone Mau Terry MD Primary Care Provider [phone] Encounter Details Date Type Department Care Team (Latest Contact Info) Description 03/03/2004 Outpatient [facility] [address] [facility] [address] [place] [address] Jose Tatum MD [address] [place] [address] [place] [address] AFT CARE HEAL TRAUM FRAC OTHER BONE (Primary Dx) Social History Tobacco Use Types Packs/Day Years Used Date Smoking Tobacco: Never Assessed Comments Unknown Sex and Gender Information Value Date Recorded Sex Assigned at Not on file 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
--- OUTSIDE RECORDS SUMMARY | 2024-11-15 20:46 | XMS_ITS | Encounter Summary ---
Author Organization [facility] Address [address] [place] [address] Care Team Providers Care Accounts Payables Clerk Name Role Phone Mau Terry MD Primary Care Provider [phone] Encounter Details Date Type Department Care Team (Late st Contact Info) Description 05/16/2007 Outpatient Historical [facility] [address] [place] [address] Social History Tobacco Use Types Packs/Day Years Used Date Smoking Tobacco: Never Assessed Comments Unknown Sex and Gender Information Value Date Recorded Sex Assigned at Not on file Legal Sex Female 3:01 AM DIRECTOR BIOINFORMATICS Gender Identity Not on file Sexual Orientation Not on file documented as of this encounter Plan of Treatment Not on file documented as of this encounter Visit Diagnoses Not on filedocumented in this encounter Care Teams Accounts Payables Clerk Relationship Specialty Start Date End Date Mau Terry MD [facility] [address] [place] [phone] PCP - General 02/28/06 07/12/14 documented as of this encounter
--- OUTSIDE RECORDS SUMMARY | 2024-11-15 20:46 | XMS_ITS | Encounter Summary ---
Author Organization [facility] Address [address] [place] [address] Care Team Providers Care Foot Drill Operator Name Role Phone Mau Terry MD Primary Care Provider [phone] Encounter Details Date Type Department Care Team (Late st Contact Info) Description 02/19/2009 Ancillary Orders [facility] [place] [address] [place] [phone] Mau Terry MD [address] [place] [phone] Other Screening Mammogram Social History Tobacco Use Types Packs/Day Years Used Date Smoking Tobacco: Never Alcohol Use Standard Drinks/Week Comments No 0 (1 standard drink = 0.6 oz pur e alcohol) Comments No Sex and Gender Information Value Date Recorded Sex Assigned at Not on file 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 Sex 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 ANALYST Gender Identity Not on file Sexual Orientation Not on file documented as of this encounter Plan of Treatment Not on file documented as of this encounter Results * MAMMO DIGITAL SCREEN BILAT (02/19/2009 2:54 PM CDT) Anatomical Region Laterality Modality Breast Bilateral Mammography Narrative 02/23/2009 5:17 PM MARKETING PERFORMANCE ANALYST Bilateral Mammogram Reason for Exam: Screening Comparison: [...] mammogram documented in this encounter Care Teams Foot Drill Operator Relationship Specialty Start Date End Date Mau Terry MD [address] [place] [phone] PCP - General 02/28/06 07/12/14 documented as of this encounter
--- OUTSIDE RECORDS SUMMARY | 2024-11-15 20:46 | XMS_ITS | Encounter Summary ---
Author Organization [facility] Address [address] [place] [address] Care Team Providers Care Heater Mechanic Name Role Phone Mau Terry MD Primary Care Provider [phone] Encounter Details Date Type Department Care Team (Latest Contact Info) Description 02/16/2004 Outpatient Historical [facility] Medicine- [address] [place] [phone] Sven Kimball PA NO ADDRESS ON FILE CLOSE SKULL FX NEC/MENING HEM (CMS/HCC) (Primary Dx); DIZZINESS AND GIDDINESS; HYPERTENSION NOS Social History Tobacco Use Types Packs/Day Years Used Date Smoking Tobacco: Never Assessed Comments Unknown Sex and Gender Information Value Date Recorded Sex Assigned at Not on file 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
--- OUTSIDE RECORDS SUMMARY | 2024-11-15 20:47 | XMS_ITS | Encounter Summary ---
Author Organization [facility] Address [address] [place] [address] Care Team Providers Care Hospice Nurse Name Role Phone Mau Terry MD Primary Care Provider [phone] Encounter Details Date Type Department Care Team (Latest Contact Info) Description 08/27/2000 Outpatient Historical [facility] Jonh Fox Jr., MD [address] [place] [address] Bronchitis, not specified as acute or chronic (Primary Dx); Other and unspecified chronic nonsuppurative otitis media Social History Tobacco Use Types Packs/Day Years Used Date Smoking Tobacco: Never Assessed Comments Unknown Sex and Gender Information Value Date Recorded Sex Assigned at Not on file Legal Sex Female 3:01 AM CLINIC LPN Gender Identity Not on file Sexual Orientation Not on file documented as of this encounter Plan of Treatment Not on file documented as of this encounter Visit Diagnoses Diagnosis Bronchitis, not specified as acute or chronic- Primary Other and unspecified chronic nonsuppurative otitis media documented in this encounter Care Teams Hospice Nurse Relationship Specialty Start Date End Date Mau Terry MD [address] [place] [phone] PCP - General 02/28/06 07/12/14 documented as of this encounter
--- OUTSIDE RECORDS SUMMARY | 2024-11-15 20:47 | XMS_ITS | Encounter Summary ---
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) Social History Tobacco Use Types Packs/Day Years Used Date Smoking Tobacco: Never Assessed Comments Unknown Sex and Gender Information Value Date Recorded Sex Assigned at Not on file Legal Sex Female 3:01 AM LICENSE AND PERMIT SPECIALIST Gender Identity Not on file Sexual Orientation Not on file documented as of this encounter Plan of Treatment Not on file documented as of this encounter Visit Diagnoses Diagnosis 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
--- OUTSIDE RECORDS SUMMARY | 2024-11-15 20:47 | XMS_ITS | Encounter Summary ---
Author Organization [facility] Address [address] [place] [address] Care Team Providers Care Printed Circuit Boards Contact Printer Name Role Phone Mau Terry MD Primary Care Provider [phone] Encounter Details Date Type Department Care Team (Latest Contact Info) Description 07/05/2001 Outpatient [facility] Facial Plastic Surgery- [address] [place] [address] Tano Meneses MD NO ADDRESS ON FILE UNCERTAIN BEHAV NEOPL SKIN (Primary Dx) Social History Tobacco Use Types Packs/Day Years Used Date Smoking Tobacco: Never Assessed Comments Unknown Sex and Gender Information Value Date Recorded Sex Assigned at Not on file Legal Sex Female 3:01 AM WEAVING LOOM OPERATOR Gender Identity Not on file Sexual Orientation Not on file documented as of this encounter Plan of Treatment Not on file documented as of this encounter Visit Diagnoses Diagnosis Neoplasm of uncertain behavior of skin- Primary documented in this encounter Care Teams Printed Circuit Boards Contact Printer Relationship Specialty Start Date End Date Mau Terry MD [address] [place] [phone] PCP - General 02/28/06 07/12/14 documented as of this encounter
--- OUTSIDE RECORDS SUMMARY | 2024-11-15 20:47 | XMS_ITS | Encounter Summary ---
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); Benign hayley skin trunk Social History Tobacco Use Types Packs/Day Years Used Date Smoking Tobacco: Never Assessed Comments Unknown Sex and Gender Information Value Date Recorded Sex Assigned at Not on file Legal Sex Female 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
--- OUTSIDE RECORDS SUMMARY | 2024-11-15 20:47 | XMS_ITS | Encounter Summary ---
Author Organization [email or web address] Address [address] [place] [address] Care Team Providers Care Shipping Coordinator Name Role Phone Mau Terry MD Primary Care Provider [phone] Encounter Details Date Type Department Care Team (Latest Contact Info) Description 06/24/2001 Outpatient Historical [facility] Brent Valladares MD [address] [place] [address] ACUTE URI NOS (Primary Dx) Social History Tobacco Use Types Packs/Day Years Used Date Smoking Tobacco: Never Assessed Comments Unknown Sex and Gender Information Value Date Recorded Sex Assigned at Not on file Legal Sex Female 3:01 AM DIRECTOR OF PATIENT FINANCIAL SERVICES Gender Identity Not on file Sexual Orientation Not on file documented as of this encounter Plan of Treatment Not on file documented as of this encounter Visit Diagnoses Diagnosis Acute upper respiratory infections of unspecified site- Primary documented in this encounter Care Teams Shipping Coordinator Relationship Specialty Start Date End Date Mau Terry MD [address] [place] [phone] PCP - General 02/28/06 07/12/14 documented as of this encounter
--- OUTSIDE RECORDS SUMMARY | 2024-11-15 20:47 | XMS_ITS | Encounter Summary ---
Author Organization [facility] Address [address] Att[address]: [place] [address] Care Team Providers Care Graining Operator Name Role Phone Mau Terry MD Primary Care Provider [phone] Encounter Details Date Type Department Care Team (Late st Contact Info) Description 02/13/2002 Outpatient Historical [facility] [address] [place] [address] Social History Tobacco Use Types Packs/Day Years Used Date Smoking Tobacco: Never Assessed Comments Unknown Sex and Gender Information Value Date Recorded Sex Assigned at Not on file Legal Sex Female 3: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
--- OUTSIDE RECORDS SUMMARY | 2024-11-15 20:47 | XMS_ITS | Encounter Summary ---
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); Unspecified Essential Hypertension; Lateral Epicondylitis; Unspecified Infective Otitis Externa Social History Tobacco Use Types Packs/Day Years Used Date Smoking Tobacco: Never Assessed Comments Unknown Sex and Gender Information Value Date Recorded Sex Assigned at Not on file 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
--- OUTSIDE RECORDS SUMMARY | 2024-11-15 20:47 | XMS_ITS ---
Author Organization [facility] Care Team Providers Care Plastics Scientist Name Role Phone Yaima Cummings Unavailable Unavailable Erick Kelly Unavailable Unavailable Allergies and adverse reactions Code CodeSystem Substance Reaction Severity StartDate Concern Status 824041 RXNORM SITagliptin Unknown 10/28/2024 active [id number] RXNORM Jardiance Unknown 10/28/2024 active Care Team Name Role Address Phone Organization Dates Erick Kelly PCP [address] [place], [address], [place] (Office): [facility] 11/06/2024 - present Yaima Cummings [address], [address], [place] (Office): : [facility] 11/06/2024 - present Imaging Narrative Note Date Imaging Narrative No te 11/13/2024 SIGNIFICANT FINDINGS CHEST, 2 VIEW (AP, LAT):.See NoteFindings: Frontal and lateral views of the chest with no prior study. Mild diffuse pulmonary venous congestion with interstitial edema and small bilateral pleural effusions. No focal alveolar consolidation. No pneumothorax. Cardiac silhouette is mildly enlarged..IMPRESSION:Findings most consistent with congestive heart failure and pulmonary edema, without focal consolidation. Follow up exam can be obtained to evaluate for interval improvement...Electronically Signed By: Dr. Erick Casas 11/13/2024 See Attachment Functional Status Code Name Recorded Time Value Entered By Ambulation 11/15/2024 Extensive Assistance lhollan d Ambulation 11/15/2024 Extensive Assistance lhollan d Ambulation 11/15/2024 Not assessed [place]holland Ambulation 11/15/2024 Supervision [place] Bathing 11/09/2024 Supervision - Dressing 11/15/2024 Supervision [place] Feeding or Eating 11/15/2024 Supervision cdow Toileting 11/15/2024 Supervision [place] Transferring 11/15/2024 Supervision [place]hol[place] Immunizations Immunization Status Vaccine Details Vaccine Code CodeSystem Date Notes TB 1 Step Mantoux (PPD) completed tuberculin skin test; unspecified formulation lotNumber: [id number] expiry: 02/20/2026 Mfg: Apisol Given 0.1 ml Left Forearm intradermally 98 CVX created date: 10/29/2024 consent date: 10/28/2024 administer ed date: 10/29/2024 Educated by on 10/30/2024 Medications Section Medication Name Status Code CodeSystem Dose Route Frequency Admin Type Sig Text Start Date End Date amLODIPine Besylate Oral Tablet 5 MG active 757792 RXNORM 1 tablet Oral one time a day Routine Give 1 tablet by mouth one time a day for HTN 2024 - Clopidogrel Bisulfate Oral Tablet 75 MG active 806965 RXNORM 1 tablet Oral one time a day Routine Give 1 tablet by mouth one time a day for A-Fib 2024 - Irbesartan Oral Tablet 150 MG aborted 541463 RXNORM 1 tablet Oral one time a day Routine Give 1 tablet by mouth one time a day 11/06 Ezetimibe Oral Tablet 10 MG active 542125 RXNORM 1 tablet Oral at bedtime Routine Give 1 tablet by mouth at bedtim e for Hyperl ipidem ia 2024 - Metoprolol Tartrate Oral Tablet 50 MG aborted 056663 RXNORM 1 tablet Oral two times a day Routine Give 1 tablet by mouth two times a day for HTN Hold If Systol ic B/P is <100 and Hold if Pulse <60 11/06 Gabapentin Capsule 100 MG active 096383 RXNORM 1 capsul e Oral two times a day Routine Give 1 capsul e by mouth two times a day for Nerve Pain 2024 - Omeprazole Capsule Delayed Release 40 MG active 934856 RXNORM 1 capsul e Oral two times a day Routine Give 1 capsul e by mouth two times a day for GERD 2024 - PreserVision AREDS Oral Tablet aborted 145570 RXNORM 1 tablet Oral one time a day Routine Give 1 tablet by mouth one time a day for Supple ment 11/06 Isosorbide Mononitrate ER Oral Tablet Extended Release 24 Hour 30 MG active 918202 RXNORM 1 tablet Oral in the morning Routine Give 1 tablet by mouth in the mornin g for A-Fib 2024 - Nitroglycerin Tablet Sublingual 0.4 MG active 380002 RXNORM 1 tablet Subling ual as needed [...] direct alexsandra call 911; notify provid er pancho dillon. 2024 - Galantamine Hydrobromide Oral Tablet 4 MG aborted 053748 RXNORM 1 tablet Oral two times a day Routine Give 1 tablet by mouth two times a day 10/29 Proventil HFA Inhalation Aerosol Solution 108 (90 Base) MCG/ACT active 242395 RXNORM 2 puff Inhalat ion as needed PRN 2 puff inhale orally every 6 hours as needed for Shortn ess of breath 2024 - Apixaban Oral Tablet 5 MG aborted 063161 5 RXNORM 1 tablet Oral two times a day Routine Give 1 tablet by mouth two times a day for A-Fib 11/06 Galantamine Hydrobromide Oral Tablet 4 MG aborted 721541 RXNORM 1 tablet Oral two times a day Routine Give 1 tablet by mouth two times a day for Memory 11/06 Bumetanide Oral Tablet 1 MG aborted 19730430 RXNORM 1 tablet Oral two times a day Routine Give 1 tablet by mouth two times a day for CHF 11/06 Tresiba FlexTouch Subcutaneous Solution Pen-injector 200 UNIT/ML aborted 480199 3 RXNORM 22 unit Subcuta neous one time a day Routine Inject 22 unit subcut aneous ly one time a day for DM 11/06 Magnesium Oral Tablet aborted 250 mg Oral one time a day Routine Give 250 mg by mouth one time a day for Supple ment 11/06 Ozempic (2 MG/DOSE) Subcutaneous Solution Pen-injector 8 MG/3ML aborted 423396 5 RXNORM 2 mg Subcuta neous one time a day Routine Inject 2 mg subcut aneous ly one time a day every Sun for DM 11/06 Fluconazole Oral Tablet 100 MG active 19751230 RXNORM 100 mg Oral one time a day Routine Give 100 mg by mouth one time a day for antifu ngal 2024 - Insulin Glargine Subcutaneous Solution Pen-injector 100 UNIT/ML aborted 367076 RXNORM 5 unit Subcuta neous at bedtime Routine Inject 5 unit subcut aneous ly at bedtim e for DM 11/11 Apixaban Oral Tablet 5 MG active 455539 5 RXNORM 2.5 mg Oral two times a day Routine Give 2.5 mg by mouth two times a day for A-Fib 2024 - PreserVision AREDS Oral Tablet active 070507 RXNORM 1 tablet Oral two times a day Routine Give 1 tablet by mouth two times a day for Supple ment 2024 - Magnesium Oral Tablet active 250 mg Oral one time a day Routine Give 250 mg by mouth one time a day for supple ment 2024 - Bumetanide Oral Tablet 1 MG active 19730430 RXNORM 1 mg Oral one time a day Routine Give 1 mg by mouth one time a day for CHF 2024 - Insulin Lispro (1 Unit Dial) Subcutaneous Solution Pen-injector 100 UNIT/ML active 185876 9 RXNORM n/a n/a Subcuta neous before meals and at bedtime Routine Inject as per emily montes scale: if 141 - 180 = 4; 181 - 220 = 6; 221 - 260 = 8; 261 - 300 = 10; 301 - 350 = 12; 351 - 400 = 14 Kelsi r more 400, call the physic blank, subcut aneous ly before meals and at bedtim e for DM 2024 - hydrALAZINE HCl Oral Tablet 10 MG active 742936 RXNORM 10 mg Oral three times a day Routine Give 10 mg by mouth three times a day for hypert ension 2024 - Potassium Chloride ER Tablet Extended Release 10 MEQ active 749156 RXNORM 1 tablet Oral one time a day Routine Give 1 tablet by mouth one time a day for supple ment with diurte tics 2024 - Ergocalcifero l Oral Capsule active 1 capsul e Oral in the morning Routine Give 1 capsul e by mouth in the [facility] every Sat for supple ment 50,000 unit dose 2024 - Metoprolol Tartrate Oral Tablet 25 MG active 673461 RXNORM 25 mg Oral two times a day Routine Give 25 mg by mouth two times a day for hypert ension 2024 - Triple Antibiotic Ointment 3.5-400-5000 aborted 855051 3 RXNORM n/a n/a Topical every day and maintenance technician 3rd shift Routine Apply to area on back topica lly every day and maintenance technician 3rd shift for scratc h 11/11 Triple Antibiotic Ointment 3.5-400-5000 active 419266 3 RXNORM n/a n/a Topical two times a day Routine Apply to back topica lly two times a day 2024 - Insulin Glargine Subcutaneous Solution Pen-injector 100 UNIT/ML active 764127 RXNORM 25 unit Subcuta neous at bedtime Routine Inject 25 unit subcut aneous ly at bedtim e for DM 2024 - Furosemide Tablet 20 MG active 076542 RXNORM 1 tablet Oral one time a day Routine Give 1 tablet by mouth one time a day 2024 - Azithromycin Tablet 250 MG active 065559 RXNORM 2 tablet Oral one time only One Time Only Give 2 tablet by mouth one time only for infect ion for 1 Day AND Give 1 tablet by mouth one time a day for infect ion for 4 Days starti ng on day 2 11/14 008898 RXNORM 1 tablet Oral one time a day Routine Give 2 tablet by mouth one time only for infect ion for 1 Day AND Give 1 tablet by mouth one time a day for infect ion for 4 Days starti ng on day 2 11/18 Furosemide Oral Tablet 20 MG complete d 752071 RXNORM 20 mg Oral STAT STAT Give 20 mg by mouth STAT for Wheezi ng 11/14 Mental Status Section Date Assessment Total Score Description 11/10/2024 BIMS 14 cognitively int act CAM 0 No delirium ind icated PHQ-9 00 11/10/2024 BIMS 14 cognitively int act CAM 0 No delirium ind icated PHQ-9 00 Problems Problem # Description Date of onset Resolved Date Code CodeSystem Concern Status 1 ACUTE KIDNEY FAILURE, UNSPECIFIED 11/07/[address] active 2 ATHEROSCLEROTIC HEART DISEASE OF CIRCLE CORONARY ARTERY WITHOUT ANGINA PECTORIS 11/07/[id number] active 3 HYPERKALEMIA 11/07/[address] active 4 PLEURAL EFFUSION, NOT ELSEWHERE CLASSIFIED 11/07/[address] active 5 RESPIRATORY FAILURE, UNSPECIFIED WITH HYPOXIA 11/07/[id number] active 6 URINARY TRACT INFECTION, SITE NOT SPECIFIED 11/07/[address] active 7 ACUTE SYSTOLIC (CONGESTIVE) HEART FAILURE 10/29/[address] active 8 CHRONIC KIDNEY DISEASE, STAGE 4 (SEVERE) 10/29/[address] active 9 ESSENTIAL (PRIMARY) HYPERTENSION 10/29/[address] active 10 GASTRO-ESOPHAGEAL REFLUX DISEASE WITHOUT ESOPHAGITIS 10/29/[address] active 11 HEART FAILURE, UNSPECIFIED 10/29/[address] active 12 HYPERLIPIDEMIA, UNSPECIFIED 10/29/[address] active 13 NAUSEA WITH VOMITING, UNSPECIFIED 10/29/[address] active 14 NEURALGIA AND NEURITIS, UNSPECIFIED 10/29/[address] active 15 OBESITY, CLASS 1 10/29/[address] active 16 PAROXYSMAL ATRIAL FIBRILLATION 10/29/[address] active 17 PERSONAL HISTORY OF OTHER DISEASES OF THE DIGESTIVE SYSTEM 10/29/[address] active 18 SHORTNESS OF BREATH 10/29/[address] active 19 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 10/29/[address] active Reason for Referral No Reasons for Referral Entered Diagnostic Results Result Code Code System Date Test Result Interpretation Reference Range Status Notes [id number] [facility] 11/13 Complete Blood Count / CMP / STAT / Cogent- Completed Result for: Sandra Carballo ( 1955, F) [phone] 99-9 [facility] 11/13 Cogent- Value: See Attachment Units: Normal Final 123-999 99-9 [facility] 11/13 STAT Value: Completed Units: Normal - Final 4544-3 [facility] 11/13 HCT Value: 28.9 Units: % Low 34.1-44.9 Final 5905-5 [facility] 11/13 MONO% Value: 6.9 Units: % Normal 4.7-12.5 Final 23553-0 [facility] 11/13 LYMPH% Value: 20.8 Units: % Normal 19.3-51.7 Final 770-8 [facility] 11/13 NEUT% Value: 67.1 Units: % Normal 34.0-71.1 Final 706-2 [facility] 11/13 BASO% Value: 0.9 Units: % Normal 0.1-1.2 Final 713-8 [facility] 11/13 EOS% Value: 3.8 Units: % Normal 0.7-5.8 Final 788-0 [facility] 11/13 RDW Value: 14.3 Units: % Normal 11.7-14.4 Final 3097-3 [facility] 11/13 BUN/CREAT RATIO Value: 16.2 Units: {calc} Normal 10-20 Final 777-3 [facility] 11/13 MPV Value: 11.5 Units: fL Normal 9.4-12.3 Final 787-2 [facility] 11/13 MCV Value: 90.9 Units: fL Normal 79.4-94.8 Final 718-7 [facility] 11/13 HGB Value: 9.0 Units: g/dL Low 11.2-15.7 Final 785-6 [facility] 11/13 MCHC Value: 31.1 Units: g/dL Low 32.2-35.5 Final 42423-9 [facility] 11/13 GLOBULIN, Calculated Value: 4.1 Units: g/dL High 1.9-3.7 Final 28808-22 [facility] 11/13 TOTAL PROTEIN Value: 6.8 Units: g/dL Normal 6.4-8.9 Final 17504-29 [facility] 11/13 ALBUMIN Value: 2.7 Units: g/dL Low 3.5-5.7 Final 19208 [facility] 11/13 ASPARTATE AMINOTRANS FERASE (AST) Value: 18 Units: [IU]/L Normal 13-39 Final 1742 [facility] 11/13 ALANINE AMINOTRANS FERASE (ALT) Value: 22 Units: [IU]/L Normal 7-52 Final 68 [facility] 11/13 ALKALINE PHOSPHATAS E (ALP) Value: 83 Units: [IU]/L Normal 34-104 Final 21600 [facility] 11/13 CREATININE Value: 3.90 Units: mg/dL High 0.6-1.3 Final 30940 [facility] 11/13 BLOOD UREA NITROGEN (BUN) Value: 63.0 Units: mg/dL High 7.0-25.0 Final 1975- [facility] 11/13 TOTAL BILIRUBIN Value: 0.5 Units: mg/dL Normal 0.3-1.0 Final 84208-3 [facility] 11/13 CALCIUM Value: 9.3 Units: mg/dL Normal 8.6-10.2 Final 23457 [facility] 11/13 GLUCOSE Value: 162 Units: mg/dL High 74-109 Final 06759-0 [facility] 11/13 ANION GAP Value: 12.3 Units: mEq/L Normal 8-16 Final 2027- [facility] 11/13 CARBON DIOXIDE (BICARB) Value: 29 Units: mEq/L Normal 21-31 Final 2074-0 [facility] 11/13 CHLORIDE Value: 109 Units: mEq/L High 98-107 Final 2823-3 [facility] 11/13 POTASSIUM Value: 5.3 Units: mEq/L High 3.5-5.1 Final 2951-2 [facility] 11/13 SODIUM Value: 145 Units: mEq/L Normal 136-145 Final 16400-0 [facility] 11/13 Estimated GFR AA Value: 14.8 Units: mL/min/{1.7 3_m2} Low >60.0 Final 14541-7 [facility] 11/13 Estimated GFR Value: 12.2 Units: mL/min/{1.7 3_m2} Low >60.0 Final 777-3 [facility] 11/13 PLT Value: 342 Units: x10^3/uL Normal 182-369 Final 6-9 [facility] 11/13 LYMPH# Value: 2.38 Units: x10^3/uL Normal 1.18-3.74 Final 751-8 [facility] 11/13 NEUT# Value: 7.70 Units: x10^3/uL High 1.56-6.13 Final 785-6 [facility] 11/13 MCH Value: 28.3 Units: pg Normal 25.6-32.2 Final 1759-0 [facility] 11/13 A/G RATIO Value: 0.7 Units: {ratio} Low 0.8-2.0 Final 704-7 [facility] 11/13 BASO# Value: 0.10 Units: x10^3/uL High 0.01-0.08 Final 71-2 [facility] 11/13 EOS# Value: 0.43 Units: x10^3/uL High 0.04-0.36 Final 74-7 [facility] 11/13 MONO# Value: 0.79 Units: x10^3/uL High 0.24-0.36 Final 90-2 [facility] 11/13 WBC Value: 11.46 Units: x10^3/uL High 3.98-10.04 Final 789-8 [facility] 11/13 RBC Value: 3.18 Units: 10*6/uL Low 3.93-5.22 Final 35308-0 [facility] 11/13 CHEST, 2 VIEW (AP, LAT) / Report PDF Completed Result for: SANDRA CARBALLO ( 1955, F) 01793[facility] CHEST, 2 VIEW (AP, LAT) Final SIGNIFICAN T FINDINGSCH EST, 2 VIEW (AP, LAT):.See NoteFindin gs: Frontal and lateral views of the chest with no prior study. Mild diffuse pulmonary venous congestion with interstiti al edema and small bilateral pleural effusions. No focal alveolar consolidat ion. No pneumothor ax. Cardiac silhouette is mildly enlarged.. IMPRESSION :Findings most consistent with congestive heart failure and pulmonary edema, without focal consolidat ion. Follow up exam can be obtained to evaluate for interval improvemen t...Electr onically Signed By: Dr. Erick Casas [facility] 11/13 Report PDF Final See Attachment [id number] [facility] 11/11 MAGNESIUM / Complete Blood Count / TSH / VITAMIN D 25(OH) / CMP / HbA1c % / Cogent- Completed Result for: Sandra Carballo ( 1955, F) [phone] 99-9 [facility] 11/10 Cogent- Value: See Attachment Units: Normal Final 787-2 [facility] 11/10 MCV Value: 91.7 Units: fL Normal 79.4-94.8 Final 777-3 [facility] 11/10 MPV Value: 9.1 Units: fL Low 9.4-12.3 Final 718-7 [facility] 11/10 HGB Value: 9.2 Units: g/dL Low 11.2-15.7 Final 67800-9 [facility] 11/10 GLOBULIN, Calculated Value: 2.9 Units: g/dL Normal 1.9-3.7 Final 2885-2 [facility] 11/10 TOTAL PROTEIN Value: 6.0 Units: g/dL Low 6.4-8.9 Final 785-6 [facility] 11/10 MCHC Value: 31.0 Units: g/dL Low 32.2-35.5 Final 1751-7 [facility] 11/10 ALBUMIN Value: 3.1 Units: g/dL Low 3.5-5.7 Final 788-0 [facility] 11/10 RDW Value: 15.6 Units: % High 11.7-14.4 Final 5905-5 [facility] 11/10 MONO% Value: 7.5 Units: % Normal 4.7-12.5 Final 29609-8 [facility] 11/10 LYMPH% Value: 16.2 Units: % Low 19.3-51.7 Final 770-8 [facility] 11/10 NEUT% Value: 73.5 Units: % High 34.0-71.1 Final 706-2 [facility] 11/10 BASO% Value: 0.6 Units: % Normal 0.1-1.2 Final 7138 [facility] 11/10 EOS% Value: 2.2 Units: % Normal 0.7-5.8 Final 3097-3 [facility] 11/10 BUN/CREAT RATIO Value: 14.3 Units: {calc} Normal 10-20 Final 31262-4 [facility] 11/10 HbA1c % Value: 7.9 Units: % High 4.4-6.1 Final 4544-3 [facility] 11/10 HCT Value: 29.7 Units: % Low 34.1-44.9 Final 777-3 [facility] 11/10 PLT Value: 309 Units: x10^3/uL Normal 182-369 Final 704-7 [facility] 11/10 BASO# Value: 0.1 Units: x10^3/uL High 0.01-0.08 Final 711-2 [facility] 11/10 EOS# Value: 0.3 Units: x10^3/uL Normal 0.04-0.36 Final 742-7 [facility] 11/10 MONO# Value: 0.9 Units: x10^3/uL High 0.24-0.36 Final 736-9 [facility] 11/10 LYMPH# Value: 2.1 Units: x10^3/uL Normal 1.18-3.74 Final 751-8 [facility] 11/10 NEUT# Value: 9.3 Units: x10^3/uL High 1.56-6.13 Final 6690-2 [facility] 11/10 WBC Value: 12.7 Units: x10^3/uL High 3.98-10.04 Final 64462-5 [facility] 11/10 VITAMIN D 25(OH) Value: 15.8 Units: ng/mL Normal 13.0-56.9 Final 25(OH) Vitamin D levels guideline: Deficient <20Insuffi cient 20 - <30Suffici ent 30-100Uppe r Safety Limit >100 785-6 [facility] 11/10 MCH Value: 28.5 Units: pg Normal 25.6-32.2 Final 02604-1 [facility] 11/10 MAGNESIUM Value: 2.2 Units: mg/dL Normal 1.9-2.7 Final 2160 [facility] 11/10 CREATININE Value: 3.57 Units: mg/dL High 0.6-1.3 Final 3094-0 [facility] 11/10 BLOOD UREA NITROGEN (BUN) Value: 50.9 Units: mg/dL High 7.0-25.0 Final 1975-2 [facility] 11/10 TOTAL BILIRUBIN Value: 0.2 Units: mg/dL Low 0.3-1.0 Final 56581-2 [facility] 11/10 CALCIUM Value: 8.7 Units: mg/dL Normal 8.6-10.2 Final 2345-7 [facility] 11/10 GLUCOSE Value: 182 Units: mg/dL High 74-109 Final 77704-0 [facility] 11/10 Estimated GFR AA Value: 16.4 Units: mL/min/{1.7 3_m2} Low >60.0 Final 86751-2 [facility] 11/10 Estimated GFR Value: 13.5 Units: mL/min/{1.7 3_m2} Low >60.0 Final 1742-6 [facility] 11/10 ALANINE AMINOTRANS FERASE (ALT) Value: 14 Units: [IU]/L Normal 7-52 Final 192- [facility] 07/21 /2025 ASPARTATE AMINOTRANS FERASE (AST) Value: 10 Units: [IU]/L Low 13-39 Final 6768-6 [facility] 11/10 ALKALINE PHOSPHATAS E (ALP) Value: 92 Units: [IU]/L Normal 34-104 Final 59924-8 [facility] 11/10 ANION GAP Value: 12.5 Units: mEq/L Normal 8-16 Final 2027-9 [facility] 11/10 CARBON DIOXIDE (BICARB) Value: 30 Units: mEq/L Normal 21-31 Final 2075-0 [facility] 11/10 CHLORIDE Value: 104 Units: mEq/L Normal 98-107 Final 2823-3 [facility] 11/10 POTASSIUM Value: 4.5 Units: mEq/L Normal 3.5-5.1 Final 2951-2 [facility] 11/10 SODIUM Value: 142 Units: mEq/L Normal 136-145 Final 789-8 [facility] 11/10 RBC Value: 3.24 Units: 10*6/uL Low 3.93-5.22 Final 23084-9 [facility] 11/10 THYROID-ST IMULATING HORMONE (TSH) Value: 5.52 Units: u[IU]/mL High 0.45-5.33 Final 1759-0 [facility] 11/10 A/G RATIO Value: 1.1 Units: {ratio} Normal 0.8-2.0 Final Test Code Code System Name Date 11/13/2024 Complete Blood Count 025 [facility] 11/13/2024 Complete Blood Count 025 [facility] 11/13/2024 Complete Blood Count 025 [facility] 11/13/2024 Complete Blood Count 025 11/13/2024 11/10/2024 Complete Blood Count 025 [facility] 11/10/2024 Complete Blood Count 025 [facility] 11/10/2024 Complete Blood Count 025 [facility] 11/10/2024 11/10/2024 Complete Blood Count 025 11/10/2024 Complete Blood Count 025 11/10/2024 CMP 11/10/2024 Complete Blood Count 025 11/10/2024 CMP 11/10/2024 Social History Social History Observation Description Start Date End Date Code Code System Current Smoking Status Tobacco smoking consumption unknown [id number] SNOMED CT Sex Assigned At Female 1955 57799-0 [facility] Gender Identity Vital Signs Code Code System Vitals Name Values and Units Timing Information 8462-4 [facility] Blood Pressure-Diastolic Value=99 Un its=mmHg 11/16/2024 8480-6 [facility] Blood Pressure-Systolic Pjyuk=120 Un its=mmHg 11/16/2024 8867-4 [facility] Heart rate Value=72.0 Units=/min 70239-3 [facility] Weight Psnhc=903.0 Units=Lbs 9279-1 [facility] Respiratory Rate Value=18.0 Units=/m in 11/15/2024 8310-5 [facility] Body Temperature Value=98.0 Units= F 11/15/2024 60736-0 [facility] O2 % BldC Oximetry Value=93.0 Units= % 11/15/2024 2339-0 [facility] Blood Sugar Zlkyn=518.0 Units=mg/dL 11/15/2024 8302-2 [facility] Height Value=62.0 Units=Inches 11/14/2024 95559-6 [facility] Pain Level Value=3.0 10/29/2024
--- OUTSIDE RECORDS SUMMARY | 2024-11-15 20:47 | XMS_ITS | Encounter Summary ---
Author Organization [facility] Address [address] [place] [address] Care Team Providers Care Boom Boss Name Role Phone Mau Terry MD Primary Care Provider [phone] Encounter Details Date Type Department Care Team (Latest Contact Info) Description 09/06/2000 [facility] Facial Plastic Surgery[address] [place] [address] Tano Meneses MD NO ADDRESS ON FILE Follow-up examination, following unspecified surgery (Primary Dx) Social History Tobacco Use Types Packs/Day Years Used Date Smoking Tobacco: Never Assessed Comments Unknown Sex and Gender Information Value Date Recorded Sex Assigned at Not on file Legal Sex Female 3:01 AM [employer] Gender Identity Not on file Sexual Orientation Not on file documented as of this encounter Plan of Treatment Not on file documented as of this encounter Visit Diagnoses Diagnosis Follow-up examination, following unspecified surgery- Primary documented in this encounter Care Teams Boom Boss Relationship Specialty Start Date End Date Mau Terry MD [address] [place] [id number] PCP - General 02/28/06 07/12/14 documented as of this encounter
--- OUTSIDE RECORDS SUMMARY | 2024-11-15 20:47 | XMS_ITS | Encounter Summary ---
Author Organization [facility] Address [address] [place] [address] Care Team Providers Care Food And Beverage Analyst Name Role Phone Mau Terry MD Primary Care Provider [phone] Encounter Details Date Type Department Care Team (Latest Contact Info) Description 01/30/2001 Outpatient Historical [facility] Jonh Fox Jr., MD [address] [place] [address] Obesity, unspecified (Primary Dx); Other seborrheic keratosis; Unspecified essential hypertension Social History Tobacco Use Types Packs/Day Years Used Date Smoking Tobacco: Never Assessed Comments Unknown Sex and Gender Information Value Date Recorded Sex Assigned at Not on file 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
--- OUTSIDE RECORDS SUMMARY | 2024-11-15 20:47 | XMS_ITS | Encounter Summary ---
Author Organization [facility] Address [address] [place] [address] Care Team Providers Care Geospatial Technologist Name Role Phone Mau Terry MD Primary Care Provider [phone] Encounter Details Date Type Department Care Team (Late st Contact Info) Description 10/05/2000 Outpatient Historical [facility] Ear, Nose and Throat [address] [place] 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
--- OUTSIDE RECORDS SUMMARY | 2024-11-15 20:47 | XMS_ITS | Encounter Summary ---
Author Organization [facility] Address [address] [place] [address] Care Team Providers Care Children'S Program Coordinator Name Role Phone Mau Terry MD Primary Care Provider [phone] Encounter Details Date Type Department Care Team (Latest Contact Info) Description 01/13/2000 Outpatient Historical [facility] Jonh oFx Jr., MD [address] [place] [address] Attention to dressings and sutures (Primary Dx) Social History Tobacco Use Types Packs/Day Years Used Date Smoking Tobacco: Never Assessed Comments Unknown Sex and Gender Information Value Date Recorded Sex Assigned at Not on file Legal Sex Female 3:01 AM PERFORMANCE IMPROVEMENT CONSULTANT Gender Identity Not on file Sexual Orientation Not on file documented as of this encounter Plan of Treatment Not on file documented as of this encounter Visit Diagnoses Diagnosis Attention to dressings and sutures- Primary documented in this encounter Care Teams Children'S Program Coordinator Relationship Specialty Start Date End Date Mau Terry MD [address] [place] [phone] PCP - General 02/28/06 07/12/14 documented as of this encounter
--- OUTSIDE RECORDS SUMMARY | 2024-11-15 20:47 | XMS_ITS | Encounter Summary ---
Author Organization [facility] Address [address] [place] [address] Care Team Providers Care Senior Account Director Name Role Phone Mau Terry MD Primary Care Provider [phone] Encounter Details Date Type Department Care Team (Latest Contact Info) Description 02/13/2002 Outpatient Historical [facility] Ear, Nose and Throat [address] [place] [address] [place] [address] Tenzin Vaughn [address] [place] [address] CHRONIC MASTOIDITIS (Primary Dx); MALFUNC OTHER DEVICE/GRAFT Social History Tobacco Use Types Packs/Day Years Used Date Smoking Tobacco: Never Assessed Comments Unknown Sex and Gender Information Value Date Recorded Sex Assigned at Not on file Legal Sex Female 3:01 AM COATER SLATE Gender Identity Not on file Sexual Orientation Not on file documented as of this encounter Plan of Treatment Not on file documented as of this encounter Visit Diagnoses Diagnosis Chronic mastoiditis- Primary Mechanical complication due to other implant and internal device, not elsewhere classified documented in this encounter Care Teams Senior Account Director Relationship Specialty Start Date End Date Mau Terry MD [address] [place] [phone] PCP - General 02/28/06 07/12/14 documented as of this encounter
--- OUTSIDE RECORDS SUMMARY | 2024-11-15 20:47 | XMS_ITS | Encounter Summary ---
Author Organization [facility] Address [address] [place] [address] Care Team Providers Care Head Cager Name Role Phone Mau Terry MD Primary Care Provider [phone] Encounter Details Date Type Department Care Team (Latest Contact Info) Description 02/27/2002 Outpatient Historical [facility] Ear, Nose and Throat [address] [place] 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
--- OUTSIDE RECORDS SUMMARY | 2024-11-15 20:47 | XMS_ITS | Encounter Summary ---
Author Organization [facility] Address [address] [place] [address] Care Team Providers Care Environmental Projects Advisor Name Role Phone Mau Terry MD Primary Care Provider [phone] Encounter Details Date Type Department Care Team (Latest Contact Info) Description 11/07/2000 Outpatient [facility] Facial Plastic Surgery- [address] [place] [address] Tano Meneses MD NO ADDRESS [...] Legal Sex Female 3:01 AM WIRE ROPE SLING MAKER Gender Identity Not on file Sexual Orientation Not on file documented as of this encounter Plan of Treatment Not on file documented as of this encounter Visit Diagnoses Diagnosis Other and unspecified malignant neoplasm of skin of other and unspecified parts of face- Primary Follow-up examination, following unspecified surgery documented in this encounter Care Teams Environmental Projects Advisor Relationship Specialty Start Date End Date Mau Terry MD [address] [place] [phone] PCP - General 02/28/06 07/12/14 documented as of this encounter
--- OUTSIDE RECORDS SUMMARY | 2024-11-15 20:47 | XMS_ITS | Encounter Summary ---
Author Organization [facility] Address [address] [place] [address] Care Team Providers Care District Sales Coordinator Name Role Phone Mau Terry MD Primary Care Provider [phone] Encounter Details Date Type Department Care Team (Latest Contact Info) Description 01/02/2002 Outpatient Historical [facility] Ear, Nose and Throat E [place] [address] 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
--- OUTSIDE RECORDS SUMMARY | 2024-11-15 20:47 | XMS_ITS | Encounter Summary ---
Author Organization [facility] Address [address] [place] [address] Care Team Providers Care Licensed Pharmacist Name Role Phone Mau Terry MD Primary Care Provider [phone] Encounter Details Date Type Department Care Team (Latest Contact Info) Description 04/04/2002 Outpatient Historical [facility] Ear, Nose and Throat [address] [place] [address] [place] [place] [address] Jc Barth MD NO ADDRESS ON FILE IMPACTED CERUMEN (Primary Dx); CONDUCT HEARING LOSS NOS Social History Tobacco Use Types Packs/Day Years Used Date Smoking Tobacco: Never Assessed Comments Unknown Sex and Gender Information Value Date Recorded Sex Assigned at Not on file Legal Sex Female 3:01 AM SENIOR RESEARCH ASSOCIATE Gender Identity Not on file Sexual Orientation Not on file documented as of this encounter Plan of Treatment Not on file documented as of this encounter Visit Diagnoses Diagnosis Impacted cerumen- Primary Unspecified conductive hearing loss documented in this encounter Care Teams Licensed Pharmacist Relationship Specialty Start Date End Date Mau Terry MD [address] [place] [phone] PCP - General 02/28/06 07/12/14 documented as of this encounter
--- OUTSIDE RECORDS SUMMARY | 2024-11-15 20:47 | XMS_ITS | Encounter Summary ---
Author Organization [facility] Address [address] [place] [address] Care Team Providers Care Survey Project Manager Name Role Phone Mau Terry MD Primary Care Provider [phone] Encounter Details Date Type Department Care Team (Latest Contact Info) Description 02/13/2002 Outpatient Historical [facility] Head and Neck Surgery-E [place] [address] [place] [phone] Tenzin Vaughn [address] [place], [place] [address] CHRONIC MASTOIDITIS (Primary Dx); MALFUNC OTHER DEVICE/GRAFT Social History Tobacco Use Types Packs/Day Years Used Date Smoking Tobacco: Never Assessed Comments Unknown Sex and Gender Information Value Date Recorded Sex Assigned at Not on file 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
--- OUTSIDE RECORDS SUMMARY | 2024-11-15 20:47 | XMS_ITS | Encounter Summary ---
Author Organization [facility] Address [address] [place] [address] Care Team Providers Care Bathhouse Keeper Name Role Phone Mau Terry MD Primary Care Provider [phone] Encounter Details Date Type Department Care Team (Latest Contact Info) Description 01/02/2002 Outpatient Historical [facility] Jonh Fox Jr., MD [address] [place] [address] CHR SEROUS OM SIMP/NOS (Primary Dx); PERFORAT TYMPAN MEMB NOS Social History Tobacco Use Types Packs/Day Years Used Date Smoking Tobacco: Never Assessed Comments Unknown Sex and Gender Information Value Date Recorded Sex Assigned at Not on file Legal Sex Female 3:01 AM THERAPEUTIC RECREATION DIRECTOR Gender Identity Not on file Sexual Orientation Not on file documented as of this encounter Plan of Treatment Not on file documented as of this encounter Visit Diagnoses Diagnosis Simple or unspecified chronic serous otitis media- Primary Perforation of tympanic membrane, unspecified documented in this encounter Care Teams Bathhouse Keeper Relationship Specialty Start Date End Date Mau Terry MD [address] [place] [phone] PCP - General 02/28/06 07/12/14 documented as of this encounter
--- OUTSIDE RECORDS SUMMARY | 2024-11-15 20:47 | XMS_ITS | Encounter Summary ---
Author Organization [facility] Address [address] [facility] Attn: [place] [address] Care Team Providers Care Drawing Kiln Operator Name Role Phone Mau Terry MD Primary Care Provider [phone] Encounter Details Date Type Department Care Team (Late st Contact Info) Description 03/01/2001 Outpatient Historical [facility], Jonh Howell MD [address] [place] [phone] Social History Tobacco Use Types Packs/Day Years Used Date Smoking Tobacco: Never Assessed Comments Unknown Sex and Gender Information Value Date Recorded Sex Assigned at Not on file Legal Sex Female 3:01 AM ART MODEL Gender Identity Not on file Sexual Orientation Not on file documented as of this encounter Plan of Treatment Not on file documented as of this encounter Visit Diagnoses Not on filedocumented in this encounter Care Teams Drawing Kiln Operator Relationship Specialty Start Date End Date Mau Terry MD [address] [place] [phone] PCP - General 02/28/06 07/12/14 documented as of this encounter
--- OUTSIDE RECORDS SUMMARY | 2024-11-15 20:47 | XMS_ITS | Encounter Summary ---
Author Organization [facility] Address [address] [place] [address] Care Team Providers Care Financial Reporting Accountant Name Role Phone Mau Terry MD Primary Care Provider [phone] Encounter Details Date Type Department Care Team (Latest Contact Info) Description 01/15/2002 Outpatient Historical [facility] Ear, Nose and Throat [address] [place] [address] [place] [address] Tenzin Vaughn C [address] [place] [address] CONDUCT HEARING LOSS NOS (Primary Dx); CHRONIC MASTOIDITIS Social History Tobacco Use Types Packs/Day Years Used Date Smoking Tobacco: Never Assessed Comments Unknown Sex and Gender Information Value Date Recorded Sex Assigned at Not on file Legal Sex Female 3:01 AM GENERAL SURGERY PHYSICIAN ASSISTANT Gender Identity Not on file Sexual Orientation Not on file documented as of this encounter Plan of Treatment Not on file documented as of this encounter Visit Diagnoses Diagnosis Unspecified conductive hearing loss- Primary Chronic mastoiditis documented in this encounter Care Teams Financial Reporting Accountant Relationship Specialty Start Date End Date Mau Terry MD [address] [place] [phone] PCP - General 02/28/06 07/12/14 documented as of this encounter
--- OUTSIDE RECORDS SUMMARY | 2024-11-15 20:47 | XMS_ITS | Encounter Summary ---
Author Organization [facility] Address [address] [place] [address] Care Team Providers Care Merchandise Coordinator Name Role Phone Mau Terry MD Primary Care Provider [phone] Reason for Referral * Outpatient Services (Routine) - Closed Specialty Diagnoses / Procedures Referred By Jaqueline t Referred To Contact Diagnoses Post mastoidectomy sequelae Excessive granulation tissue Procedures CT TEMPORAL BONE WO CONTRAST Twan Garcia PA [facility] [address] [place] [address] Phone: tel: fax: Referral ID Status Reason Start Date Expiration Date Visits Re quested Visits Authorized [id number] Closed 01/23/2012 01/22/2013 1 1 Encounter Details Date Type Department Care Team (Late st Contact Info) Description 01/23/2012 Ancillary Orders [facility] CT Scan [place] [address] [place] [phone] Twan Garcia PA [facility] [address] [place] [address] Post mastoidectomy sequelae; Excessive granulation tissue Social History Tobacco Use Types Packs/Day Years Used Date Smoking Tobacco: Never Smokeless Tobacco: Never Alcohol Use Standard Drinks/Week Comments No 0 (1 standard drink = 0.6 oz pur e alcohol) Comments No Sex and Gender Information Value Date Recorded Sex Assigned at Not on file Legal Sex Female 3:01 AM COUNTER ATTENDANT Gender Identity Not on file Sexual [...] tissue documented in this encounter Care Teams Merchandise Coordinator Relationship Specialty Start Date End Date Mau Terry MD [address] [place] [phone] PCP - General 02/28/06 07/12/14 documented as of this encounter
--- OUTSIDE RECORDS SUMMARY | 2024-11-15 20:47 | XMS_ITS | Encounter Summary ---
Author Organization [facility] Address [address] [place] [address] Care Team Providers Care Valve Technician Name Role Phone Mau Terry MD Primary Care Provider [phone] Encounter Details Date Type Department Care Team (Latest Contact Info) Description 02/28/2006 Outpatient Historical [facility] [address] [place] [address] Mau Terry MD [address] [place] [phone] Encounters for Unspecified Administrative Purpose (Primary Dx) Social History Tobacco Use Types Packs/Day Years Used Date Smoking Tobacco: Never Assessed Comments Unknown Sex and Gender Information Value Date Recorded Sex Assigned at Not on file Legal Sex Female 3:01 AM DOCTOR OF OSTEOPATHY Gender Identity Not on file Sexual Orientation Not on file documented as of this encounter Plan of Treatment Not on file documented as of this encounter Visit Diagnoses Diagnosis Encounters for unspecified administrative purpose- Primary documented in this encounter Care Teams Valve Technician Relationship Specialty Start Date End Date Mau Terry MD [address] [place] [phone] PCP - General 02/28/06 07/12/14 documented as of this encounter
--- OUTSIDE RECORDS SUMMARY | 2024-11-15 20:47 | XMS_ITS | Encounter Summary ---
Author Organization [facility] Address [address] [facility] Attn: [place] [address] Care Team Providers Care Transportation Modeler Name Role Phone Mau Terry MD Primary Care Provider [phone] Encounter Details Date Type Department Care Team (Late st Contact Info) Description 09/07/2000 Outpatient Historical Tano Meneses MD NO ADDRESS ON FILE Social History Tobacco Use Types Packs/Day Years Used Date Smoking Tobacco: Never Assessed Comments Unknown Sex and Gender Information Value Date Recorded Sex Assigned at Not on file Legal Sex Female 3:01 AM INSTRUCTOR LOOPING Gender Identity Not on file Sexual Orientation Not on file documented as of this encounter Plan of Treatment Not on file documented as of this encounter Visit Diagnoses Not on filedocumented in this encounter Care Teams Transportation Modeler Relationship Specialty Start Date End Date Mau Terry MD [address] [place] [phone] PCP - General 02/28/06 07/12/14 documented as of this encounter
--- OUTSIDE RECORDS SUMMARY | 2024-11-15 20:47 | XMS_ITS | Encounter Summary ---
Author Organization 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) Social History Tobacco Use Types Packs/Day Years Used Date Smoking Tobacco: Never Assessed Comments Unknown Sex and Gender Information Value Date Recorded Sex Assigned at Not on file Legal Sex Female 3:01 AM EDUCATIONAL DIRECTOR Gender Identity Not on file Sexual Orientation Not on file documented as of this encounter Plan of Treatment Not on file documented as of this encounter Visit Diagnoses Diagnosis 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
--- OUTSIDE RECORDS SUMMARY | 2024-11-15 20:47 | XMS_ITS | Encounter Summary ---
Author Organization [facility] Address [address] [facility] Attn: [place] [address] Care Team Providers Care Senior Hris Analyst Name Role Phone Mau Terry MD Primary Care Provider [phone] Encounter Details Date Type Department Care Team (Late st Contact Info) Description 01/10/2000 Outpatient Historical [facility], Jonh Howell MD [address] [place] [address] Social History Tobacco Use Types Packs/Day Years Used Date Smoking Tobacco: Never Assessed Comments Unknown Sex and Gender Information Value Date Recorded Sex Assigned at Not on file Legal Sex Female 3:01 AM BREAKFAST HOST Gender Identity Not on file Sexual Orientation Not on file documented as of this encounter Plan of Treatment Not on file documented as of this encounter Visit Diagnoses Not on filedocumented in this encounter Care Teams Senior Hris Analyst Relationship Specialty Start Date End Date Mau Terry MD [address] [place] [phone] PCP - General 02/28/06 07/12/14 documented as of this encounter
--- OUTSIDE RECORDS SUMMARY | 2024-11-15 20:47 | XMS_ITS | Encounter Summary ---
Author Organization [facility] Address [address] [place] [address] Care Team Providers Care Ice Guard Inspector Name Role Phone Mau Terry MD Primary Care Provider [phone] Encounter Details Date Type Department Care Team (Late st Contact Info) Description 01/02/2002 Outpatient Historical [facility] Ear, Nose and Throat [address] [place] [address] [place] [address] Social History Tobacco Use Types Packs/Day Years Used Date Smoking Tobacco: Never Assessed Comments Unknown Sex and Gender Information Value Date Recorded Sex Assigned at Not on file Legal Sex Female 3:01 AM ASTRONOMY PROFESSOR Gender Identity Not on file Sexual Orientation Not on file documented as of this encounter Plan of Treatment Not on file documented as of this encounter Visit Diagnoses Not on filedocumented in this encounter Care Teams Ice Guard Inspector Relationship Specialty Start Date End Date Mau Terry MD [address] [place] [phone] PCP - General 02/28/06 07/12/14 documented as of this encounter
--- OUTSIDE RECORDS SUMMARY | 2024-11-15 20:47 | XMS_ITS | Encounter Summary ---
Author Organization [facility] Address [address] [place] [address] Care Team Providers Care Director Of Retention Name Role Phone Mau Terry MD Primary Care Provider [phone] Encounter Details Date Type Department Care Team (Latest Contact Info) Description 05/14/2002 Outpatient Historical [facility] Ear, Nose and Throat [address] [place] [address] Anselmo Lopez MD [address] [address] CONDUCT HEARING LOSS NOS (Primary Dx) Social History Tobacco Use Types Packs/Day Years Used Date Smoking Tobacco: Never Assessed Comments Unknown Sex and Gender Information Value Date Recorded Sex Assigned at Not on file Legal Sex Female 3:01 AM EXTERNAL RELATIONS DIRECTOR Gender Identity Not on file Sexual Orientation Not on file documented as of this encounter Plan of Treatment Not on file documented as of this encounter Visit Diagnoses Diagnosis Unspecified conductive hearing loss- Primary documented in this encounter Care Teams Director Of Retention Relationship Specialty Start Date End Date Mau Terry MD [address] [place] [phone] PCP - General 02/28/06 07/12/14 documented as of this encounter
--- OUTSIDE RECORDS SUMMARY | 2024-11-15 20:47 | XMS_ITS | Encounter Summary ---
Author Organization [facility] Address [address] [place] [address] Care Team Providers Care Automotive Power Electronics Engineer Name Role Phone Mau Terry MD Primary Care Provider [phone] Encounter Details Date Type Department Care Team (Latest Contact Info) Description 10/04/2000 Outpatient Historical [facility] Jonh Fox Jr., MD [address] [place] [address] Other and unspecified malignant neoplasm of skin of other and unspecified parts of face (Primary Dx); Unspecified sleep apnea Social History Tobacco Use Types Packs/Day Years Used Date Smoking Tobacco: Never Assessed Comments Unknown Sex and Gender Information Value Date Recorded Sex Assigned at Not on file Legal Sex Female 3:01 AM HOUSEKEEPING/LAUNDRY Gender Identity Not on file Sexual Orientation Not on file documented as of this encounter Plan of Treatment Not on file documented as of this encounter Visit Diagnoses Diagnosis Other and unspecified malignant neoplasm of skin of other and unspecified parts of face- Primary Unspecified sleep apnea documented in this encounter Care Teams Automotive Power Electronics Engineer Relationship Specialty Start Date End Date Mau Terry MD [address] [place] [phone] PCP - General 02/28/06 07/12/14 documented as of this encounter
--- OUTSIDE RECORDS SUMMARY | 2024-11-15 20:47 | XMS_ITS | Encounter Summary ---
Author Organization [facility] Address [address] [place] [address] Care Team Providers Care Import Customs Clearing Agent Name Role Phone Mau Terry MD Primary Care Provider [phone] Encounter Details Date Type Department Care Team (Latest Contact Info) Description 05/17/1998 Outpatient Historical [facility] Garret Nj MD NO ADDRESS ON FILE Gynecologic examination (Primary Dx) Social History Tobacco Use Types Packs/Day Years Used Date Smoking Tobacco: Never Assessed Comments Unknown Sex and Gender Information Value Date Recorded Sex Assigned at Not on file Legal Sex Female 3:01 AM STENOGRAPHER PRINT SHOP Gender Identity Not on file Sexual Orientation Not on file documented as of this encounter Plan of Treatment Not on file documented as of this encounter Visit Diagnoses Diagnosis Gynecologic examination- Primary Gynecological examination documented in this encounter Care Teams Import Customs Clearing Agent Relationship Specialty Start Date End Date Mau Terry MD [address] [place] [phone] PCP - General 02/28/06 07/12/14 documented as of this encounter
--- OUTSIDE RECORDS SUMMARY | 2024-11-15 20:47 | XMS_ITS | Encounter Summary ---
Author Organization [facility] Address [address] [place] [address] Care Team Providers Care Meat Hanger Name Role Phone Mau Terry MD Primary Care Provider [phone] Encounter Details Date Type Department Care Team (Latest Contact Info) Description 10/05/2000 Outpatient Historical [facility] Ear, Nose and Throat 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
--- OUTSIDE RECORDS SUMMARY | 2024-11-15 20:47 | XMS_ITS | Encounter Summary ---
Author Organization [facility] Address [address] [place] [address] Care Team Providers Care Manager Spring Name Role Phone Mau Terry MD Primary Care Provider Encounter Details Date Type Department Care Team (Latest Contact Info) Description 12/09/1999 Outpatient Historical [facility] Jonh Fox Jr., MD [address] [place] [address] General symptoms NEC (Primary Dx); Hypoactive sexual desire; Pure hypercholesterolem Social History Tobacco Use Types Packs/Day Years Used Date Smoking Tobacco: Never Assessed Comments Unknown Sex and Gender Information Value Date Recorded Sex Assigned at Not on file 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
--- OUTSIDE RECORDS SUMMARY | 2024-11-15 20:47 | XMS_ITS | Encounter Summary ---
Author Organization [facility] Address [address] [place] [address] Phone Care Team Providers Care Rod Pointer Name Role Phone Jose Bah Primary Care Provider [phone] Encounter Details Date Type Department Care Team (Late st Contact Info) Description 11/10/2024 Telephone [facility] [address] [place] [address] Tae Rosales MD [address] [place] [address] Social History Tobacco Use Types Packs/Day Years Used Date Smoking Tobacco: Never Passive Smoke Exposure: Never Smokeless Tobacco: Never Alcohol Use Standard Drinks/Week Comments Not Currently 0 (1 standard drink = 0.6 oz pur e alcohol) Comments No Sex and Gender Information Value Date Recorded Sex Assigned at Not on file Legal Sex Female 3:39 PM EDT Gender Identity Not on file Sexual Orientation Not on file documented as of this encounter Miscellaneous Notes * Telephone Encounter - Elizabeth Rodriguez - 11/10/2024 3:44 PM CDT Spoke to patients , Tenzin, informed him I have faxed AOC PLANS INTELLIGENCE OFFICER labs to [facility] where they will draw those for patient and fax us back results. Tenzin verbalized understanding no further questions or concerns. Thank you. * Telephone Encounter - Holly Rivas - 11/10/2024 1:40 PM CDT Spoke to pt's , Tenzin (on HIM) about moving pt's appt from 3:30 to 1:30 in [facility]. Tenzin verbally agreed to new appt time. stated pt is currently at [facility] in [place] and wanted to know if pt still needs to get labs. Please advise. documented in this encounter Plan of Treatment Upcoming Encounters Date Type Department Care Team (Late st Contact Info) Description 11/20/2024 1:30 PM CDT Office Visit [facility] [address] [place] [address] Michelle Gordon, DRUM SEALER [address] [place] [address] documented as of this encounter Visit Diagnoses Not on filedocumented in this encounter Care Teams Rod Pointer Relationship Specialty Start Date End Date Jose Bah [address] [place], [place] [phone] PCP - General 12/07/23 documented as of this encounter
--- OUTSIDE RECORDS SUMMARY | 2024-11-15 20:47 | XMS_ITS | Encounter Summary ---
Author Organization [facility] Address [address] [facility] [address] [place] [address] Phone Care Team Providers Care Mental Health Associate Name Role Phone Jose Bah Primary Care Provider [phone] Encounter Details Date Type Department Care Team (Late Contact Info) Description 12/07/2023 Orders Only [facility] [address] [place] [address] Type 2 diabetes mellitus with diabetic nephropathy (HCC); Stage 3b chronic kidney disease (HCC) Social History Tobacco Use Types Packs/Day Years Used Date Smoking Tobacco: Never Assessed Comments Unknown Sex and Gender Information Value Date Recorded Sex Assigned at Not on file Legal Sex Female 3:39 PM EDT Gender Identity Not on file Sexual Orientation Not on file documented as of this encounter Plan of Treatment Upcoming Encounters Date Type Department Care Team (Late Contact Info) Description 11/20/2024 1:30 PM CDT Office Visit [facility] [address] [place], [place] [address] Michelle Gordon NP [address] [place] [address] documented as of this encounter Visit Diagnoses Diagnosis Type 2 diabetes mellitus with diabetic nephropathy (HCC) Stage 3b chronic kidney disease (HCC) documented in this encounter Care Teams Mental Health Associate Relationship Specialty Start Date End Date Jose Bah [address] [place], [place] [address] PCP - General 12/07/23 documented as of this encounter
--- OUTSIDE RECORDS SUMMARY | 2024-11-15 20:47 | XMS_ITS | Patient Health Record ---
Author Organization [facility] Address [address] [place], [place] [address] Care Team Providers Care Recycling Worker Name Role Phone Kevin GUADALUPE, Godfrey Primary Care Provider Coy Rodriguez MD, [facility] [phone] Allergies Allergen (clinical drug ingredient) Drug/Non Drug [...] W/U Status Risk Notes Problem Solitary sacroiliitis (291947455) Sacroiliitis, not elsewhere classified (M46.1) Active confirmed Problem Low back pain (749155210) Low back pain (M54.5) Active confirmed Problem Lumbosacral spondylosis without myelopathy (25496117) Spondylosis without myelopathy or radiculopathy, lumbar region (M47.816) Active confirmed Problem High risk drug monitoring status (827371751) barrel leveler (current) use of opiate analgesic (Z79.891) Active confirmed Problem Anxiety disorder (076774874) Other specified anxiety disorders (F41.8) Active confirmed Problem Hypersomnia (42299718) Hypersomnia, unspecified (G47.10) Active confirmed Problem Acquired spondylolisthesis (276805441) Spondylolisthesis , lumbar region (M43.16) Active confirmed Problem Spinal stenosis of lumbar region (51470324) Spinal stenosis, lumbar region (M48.06) Active confirmed Problem Radiculopathy due to lumbar intervertebral disc disorder (470906968924366) Intervertebral disc disorders with radiculopathy, lumbar region (M51.16) Active confirmed Problem Pain in left leg (159814242) Pain in left leg (M79.605) Active confirmed Problem Long-term current use of drug therapy (795779747) Other mcfp (current) drug therapy (Z79.899) Active confirmed Problem Neurogenic claudication (651436795) Spinal stenosis, lumbar region with neurogenic claudication (M48.062) Active confirmed Plan Of Treatment No Information Insurance Providers Payer Name Payer Address Payer Phone Subscriber Number Group Number Insured Name Patient Relationship to Insured Coverage Start Date Coverage End Date [facility] [address] [place] [address] [id number] Sandra Lemus Self - patient is the [...] thrown from horse, 2003 UTI, treated at [facility], 04/2017
--- OUTSIDE RECORDS SUMMARY | 2024-11-15 20:47 | XMS_ITS | Encounter Summary ---
Author Organization [employer] Address [address] [facility] Attn: [place] [address] Care Team Providers Care Steward/Stewardess Economy Class Name Role Phone Mau Terry MD Primary Care Provider [phone] Encounter Details Date Type Department Care Team (Late st Contact Info) Description 10/31/2000 Outpatient Historical Tano Meneses MD NO ADDRESS ON FILE Social History Tobacco Use Types Packs/Day Years Used Date Smoking Tobacco: Never Assessed Comments Unknown Sex and Gender Information Value Date Recorded Sex Assigned at Not on file 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
--- OUTSIDE RECORDS SUMMARY | 2024-11-15 20:47 | XMS_ITS | Encounter Summary ---
Author Organization [facility] Address [address] [place] [address] Phone Care Team Providers Care Trim Die Maker Name Role Phone Jose Bah Primary Care Provider [phone] Encounter Details Date Type Department Care Team ([facility] Contact Info) Description 11/10/2024 Documentation Only [facility] [address] [place] [address] Elizabeth Rodriguez [address] [place] [address] Social History Tobacco Use Types [...] Upcoming Encounters Date Type Department Care Team ([facility] Contact Info) Description 11/20/2024 1:30 PM CDT Office Visit [facility] [address] [place], [place] [address] Michelle Gordon NP [address] [place] [address] Scheduled Orders Name Type Priority Associated Diagnoses Orde r Schedule CBC Lab Routine Chronic kidney disease stage 4 (HCC) Stage 3b chronic kidney disease (HCC) Chronic kidney disease, Stage IV (severe) (HCC) Stage 3a chronic kidney disease (HCC) Expected: 11/10/2024, Expires: 12/11/2025 PTH, intact Lab Routine Chronic kidney disease stage 4 (HCC) Stage 3b chronic kidney disease (HCC) Chronic kidney disease, Stage IV (severe) (HCC) Stage 3a chronic kidney disease (HCC) Expected: 11/10/2024, Expires: 12/11/2025 Renal function panel Lab Routine Chronic kidney disease stage 4 (HCC) Stage 3b chronic kidney disease (HCC) Chronic kidney disease, Stage IV (severe) (HCC) Stage 3a chronic kidney disease (HCC) Expected: 11/10/2024, Expires: 12/11/2025 Protein / creatinine ratio, urine Lab Routine Chronic kidney disease stage 4 (HCC) Stage 3b chronic kidney disease (HCC) Chronic kidney disease, Stage IV (severe) (HCC) Stage 3a chronic kidney disease (HCC) Expected: 11/10/2024, Expires: 12/11/2025 documented as of this encounter Visit Diagnoses Diagnosis Chronic kidney disease stage 4 (HCC)- Primary Stage 3b chronic kidney disease (HCC) Chronic kidney disease, Stage IV (severe) (HCC) Chronic kidney disease, Stage IV (severe) Stage 3a chronic kidney disease (HCC) documented in this encounter Care Teams Trim Die Maker Relationship Specialty Start Date End Date Jose Bah [address] [place] [address] [address] [place] [address] PCP - General 12/07/23 documented as of this encounter
--- OUTSIDE RECORDS SUMMARY | 2024-11-15 20:47 | XMS_ITS | Encounter Summary ---
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
--- OUTSIDE RECORDS SUMMARY | 2024-11-15 20:47 | XMS_ITS | Encounter Summary ---
Author Organization [facility] Address [address] [place] [address] Care Team Providers Care Adolescent Psychiatrist Name Role Phone Mau Terry MD Primary Care Provider [phone] Encounter Details Date Type Department Care Team (Late st Contact Info) Description 02/24/1998 Outpatient Historical [facility] Cardiology- [place] [address] [place] [address] Obed Mejia MD [address] [facility] [address] [place] [address] Painful respiration (Primary Dx); Palpitations Social History Tobacco Use Types Packs/Day Years Used Date Smoking Tobacco: Never Assessed Comments Unknown Sex and Gender Information Value Date Recorded Sex Assigned at Not on file Legal Sex Female 3:01 AM 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
--- OUTSIDE RECORDS SUMMARY | 2024-11-15 20:47 | XMS_ITS | Encounter Summary ---
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) Social History Tobacco Use Types Packs/Day Years Used Date Smoking Tobacco: Never Assessed Comments Unknown Sex and Gender Information Value Date Recorded Sex Assigned at Not on file 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
--- OUTSIDE RECORDS SUMMARY | 2024-11-15 20:47 | XMS_ITS | Encounter Summary ---
Author Organization [facility] Address [address] [place] [address] Care Team Providers Care Concrete Hopper Operator Name Role Phone Mau Terry MD Primary Care Provider [phone] Encounter Details Date Type Department Care Team (Latest Contact Info) Description 09/08/1998 Outpatient Historical [facility] [address] [facility] [address] [place] [address] Jamey Fraga MD NO ADDRESS ON FILE Other screening mammogram (Primary Dx) Social History Tobacco Use Types Packs/Day Years Used Date Smoking Tobacco: Never Assessed Comments Unknown Sex and Gender Information Value Date Recorded Sex Assigned at Not on file 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
--- OUTSIDE RECORDS SUMMARY | 2024-11-15 20:47 | XMS_ITS | Encounter Summary ---
Author Organization [facility] Address [address] [place] [address] Care Team Providers Care Smasher Name Role Phone Mau Terry MD Primary Care Provider [phone] Encounter Details Date Type Department Care Team (Latest Contact Info) Description 07/18/2000 Outpatient Historical [facility] Ruddy Calloway, Jonh Howell MD [address] [place] [address] Chalazion (Primary Dx); Hypoactive sexual desire Social History Tobacco Use Types Packs/Day Years Used Date Smoking Tobacco: Never Assessed Comments Unknown Sex and Gender Information Value Date Recorded Sex Assigned at Not on file 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
--- OUTSIDE RECORDS SUMMARY | 2024-11-15 20:47 | XMS_ITS | Clinical Summary ---
Author Organization [facility], [facility] Address [address] [place] [address] Phone Care Team Providers Care Product Safety Technical Assistant Name Role Phone Jose Bah Primary Care Provider [phone] Allergies Active Allergy Reactions Criticality Noted Date Comments Empagliflozin Rash Low 07/29/2024 Sitagliptin 07/06/2020 Medications atorvastatin (LIPITOR) 40 MG tablet Take 40 mg by mouth in the morning. 11/12/19 21 Active ezetimibe (ZETIA) 10 MG tablet Take 10 mg by mouth 1 (one) time each day 12/11/19 24 Active insulin aspart (NovoLOG FLEXPEN) 100 UNIT/ML injection Inject 15 Units under the skin 20 units at supper and 10 units with snack 11/25/19 22 Active irbesartan (AVAPRO) 150 MG tablet Take 150 mg by mouth 1 (one) time each day Active Semaglutide, 1 MG/DOSE, (Ozempic, 1 MG/DOSE,) 2 MG/1.5ML solution pen-injector Inject 1 mg under the skin 1 (one) time per week 07/07/19 21 Active magnesium oxide 250 MG tablet Take 250 mg by mouth 1 (one) time each day Active gabapentin (NEURONTIN) 100 MG capsule Take 200 mg by mouth every night 05/28/19 25 Active galantamine (RAZADYNE) 4 MG tablet Take 4 mg by mouth in the morning and 4 mg in the evening. 05/30/19 25 Active omeprazole (PriLOSEC) [address] capsule Take 20 mg by mouth 1 (one) time each day 05/16/19 25 Active Insulin Degludec (TRESIBA SC) Inject 80 Units under the skin at bed time Active bumetanide (BUMEX) 1 MG tablet Take 1 tablet (1 mg total) by mouth 1 (one) time each day 30 tablet 5 07/30/19 25 026 Active Additional Information Patient taking differently: 2 mgOral2 times daily, Morning, Noon, Reported on 08/28/2024 potassium chloride (KLOR-CON) 10 MEQ CR tabletIndicatio ns:Hypokalemia Take 1 tablet (10 mEq total) by mouth 1 (one) time each day Do not crush, chew, or split. 30 tablet 11 08/09/19 25 026 Active ondansetron ODT (ZOFRAN-ODT) 4 MG dispersible tablet Take 4 mg by mouth every 6 (six) hours if needed 08/12/19 25 Active Biotin 5000 MCG tablet Take 7,500 mcg by mouth 1 (one) time each day Active fluticasone (FLONASE) 50 MCG/ACT nasal spray Administer 2 sprays into each nostril 1 (one) time each day 08/29/19 20 Active insulin detemir (Levemir FlexPen) 100 UNIT/ML injection Inject under the skin Active Insulin Lispro, 1 Unit Dial, (HumaLOG KWIKPEN) 100 UNIT/ML solution pen-injector subcutaneously as directed Active irbesartan-hydr oCHLOROthiazide (AVALIDE) 150-12.5 MG per tablet Take 1 tablet by mouth 1 (one) time each day at the same time Active ketoconazole (NIZORAL) 2 % cream 1 nestor applied topically as directed Active metFORMIN XR (GLUCOPHAGE-XR) 500 MG 24 hr tablet Take 500 mg by mouth in the morning and 500 mg in the evening. Active Multiple Vitamins-Minera ls (Centrum Adults) tablet 1 (one) time each day at the same time Active Active Problems No known active problems Encounters Date Type Department Care Team Description 11/10/2024 Documentation Only [facility] [address] [place] [address] Elizabeth Rodriguez 11/10/2024 Telephone [facility] [address] [place] [address] Tae Rosales MD 11/04/2024 Documentation Only [facility] [address] [place] [phone] Ana Laura Fam MA 10/30/2024 Documentation Only [facility] [address] [place] [phone] Ana Laura Fam MA 10/28/2024 Telephone [facility], [facility] [address] [place] [phone] Tae Rosales MD 08/28/2024 12:50 PM CDT Office Visit [facility], [facility] [address] [place] [address] Tae Rosales MD Chronic kidney disease stage 4 (HCC) (Primary Dx) from Last 3 Months Immunizations Immunization Administration Dates Next Due Influenza, Unspecified 01/30/2017,2015,02/06/2014,04/12/2012,12/23,03/28/2006 Pneumococcal Polysaccharide 03/28/2006 Tdap 04/29/2012 Social History Tobacco Use Types Packs/Day Years [...] Sign Reading Time Taken Comments Blood Pressure 130/68 08/28/2024 1:22 PM CDT Pulse 78 08/28/2024 1:22 PM CDT Temperature - - Respiratory Rate - - Oxygen Saturation 97% 08/28/2024 1:22 PM CDT Inhaled Oxygen Concentration - - Weight 85.5 kg (188 lb 9.6 oz) 08/28/2024 1:22 P M CDT Height 158.8 cm (5' 2.5 ) 08/28/2024 1:22 PM CDT Body Mass Index 33.95 08/28/2024 1:22 PM CDT Plan of Treatment Upcoming Encounters Date Type Department Care Team (Late st Contact Info) Description 11/20/2024 1:30 PM CDT Office Visit [facility] [address] [place] [address] Michelle Gordon, JANICE [address] [facility] [address] [place] [phone] Health Maintenance Due Date Last Done Comments Breast Cancer Screening 1955 Colorectal Cancer Screening: Annual FOBT 2006 Colorectal Cancer Screening: Colonoscopy 2006 Colorectal Cancer Screening: Sigmoidoscopy 2006 Pneumococcal Vaccine: 50+ Years (2 of 2 - PCV) 03/28/2007 03/28/2006 Diabetes: Hemoglobin A1C 12/07/2023 07/06/2020 Diabetes: Ophthalmology Exam 12/07/2023 04/21/2013, 05/05/2011 Diabetes: Pedal Pulse Checked 12/07/2023 Diabetes: Sensory Foot Exam 12/07/2023 Diabetes: Visual Foot Exam 12/07/2023 Influenza Vaccine (#1) 2024 7, 01/06/2016, 02/06/2014, Additional history exists Hepatitis B Vaccine Aged Out No longe r eligible based on patient's age to complete this topic Procedures Procedure Name Priority Date/Time Associated Diagnosis Comments PHOSPHOLIPASE A2 RECEPTOR ANTIBODIES, SERUM Routine 10/17/2024 8:43 AM CDT CALCITRIOL (1,25 DI-OH VITAMIN D) Routine 10/17/2024 8:43 AM CDT PROTEIN ELECTROPHORESIS, SERUM Routine 10/17/2024 8:43 AM CDT PE+INTERP(RFX AAKASH+FLC), S Routine 10/17/2024 8:43 AM CDT ANCA (EXTERNAL RESULT ENTRY) Routine 10/17/2024 8:43 AM CDT LEEANN SCREEN Routine 10/17/2024 8:43 AM CDT KAPPA LIGHT CHAIN FREE, SERUM Routine 10/17/2024 8:43 AM CDT from Last 3 Months Results * Calcitriol (1,25 di-OH Vitamin D) (10/17/2024 8:43 AM CDT) Pathologist [facility] Calcitriol(1,25 di-OH Vit D) 9 L 18 - 72 pg/mL VITAMIN D 9 pg/mL Vitamin D2 125 (OH)2 <8 pf/mL Blood 10/17/2024 8:43 AM CDT Ana Laura Charles MD - 11/04/2024 8:48 AM CDT [address] [phone] [facility] External Provider LAB BLOOD ORDERABLES Final Result * ANCA (10/17/2024 8:43 AM CDT) [facility] ANCA Negative Blood Venous blood / Unknown 10/17/2024 8:43 AM CDT Ana Laura Charles MD - 11/04/2024 8:48 AM CDT [address] [phone] [facility] External Provider LAB BLOOD ORDERABLES Final Result * [place] light chain free, serum (10/17/2024 8:43 AM CDT) [facility] [place] Free Light Chain 101.4 Lambda Free Light Chain 66.9 [place]/Lambda Light Chains Free w/Ratio, Urine 1.52 Blood Venous blood / Unknown 10/17/2024 8:43 AM CDT Ana Laura Charles MA - 11/04/2024 8:53 AM CDT [address] [phone] [facility] External Provider LAB BLOOD ORDERABLES Final Result * PE+INTERP(RFX AAKASH+FLC), S (10/17/2024 8:43 AM CDT) Pathologist [facility] Immunofixation Normal Pattern Comment:No Monoclonal protei ns detected. 10/17/2024 8:43 AM CDT Ana Laura Charles MA - 11/04/2024 8:48 AM CDT [address] [phone] [facility] External Provider LAB BLOOD ORDERABLES Final Result * LEEANN Screen (10/17/2024 8:43 AM CDT) [facility] LEEANN Screen Negative Blood 10/17/2024 8:43 AM CDT Ana Laura Charles MA - 11/04/2024 8:48 AM CDT [address] [phone] [facility] External Provider LAB BLOOD ORDERABLES Final Result * Phospholipase A2 Receptor Antibodies, Serum (10/17/2024 8:43 AM CDT) [facility] PLA2R Frozen if, Renal <4 RU/mL Blood Venous blood / Unknown 10/17/2024 8:43 AM CDT Ana Laura Charles MA - 11/04/2024 8:48 AM CDT [address] [phone] [facility] External Provider LAB BLOOD ORDERABLES Final Result * Protein electrophoresis, serum (10/17/2024 8:43 AM CDT) Total Protein, Serum 5.7 Albumin (Blood) 2.5 g/dL Phmzb-8-Uxqaije n 0.4 Zitkt-9-Oepbrgq n 1.1 Beta 1 Globlin 0.3 Beta 2 Globulin 0.4 Gamma Globulin in Serum 0.4 Blood Venous blood / Unknown 10/17/2024 8:43 AM CDT Ana Laura Charles MA - 11/04/2024 8:48 AM CDT [facility] Kat Riki [address] [place] [address] [facility] External Provider LAB BLOOD ORDERABLES Final Result from Last 3 Months Insurance [place] MCR Adv ([id number]) Care Teams Product Safety Technical Assistant Relationship Specialty Start Date End Date Jose Bah [address] [facility] [address] [place] [address] PCP - General 12/07/23
--- OUTSIDE RECORDS SUMMARY | 2024-11-15 20:47 | XMS_ITS | Encounter Summary ---
Author Organization [facility] Address [address] [place] [address] Care Team Providers Care Tromper Name Role Phone Mau Terry MD Primary Care Provider [phone] Encounter Details Date Type Department Care Team (Latest Contact Info) Description 07/11/2001 Outpatient Historical [facility] Ruddy Calloway, Jonh Howell MD [address] [place] [phone] ACTINIC KERATOSIS (Primary Dx) Social History Tobacco Use Types Packs/Day Years Used Date Smoking Tobacco: Never Assessed Comments Unknown Sex and Gender Information Value Date Recorded Sex Assigned at Not on file 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
--- OUTSIDE RECORDS SUMMARY | 2024-11-15 20:47 | XMS_ITS | Encounter Summary ---
Author Organization [facility] Address [address] [place] [address] Care Team Providers Care Presentation Manager Name Role Phone Mau Terry MD Primary Care Provider [phone] Encounter Details Date Type Department Care Team (Latest Contact Info) Description 02/12/2002 Outpatient Historical [facility] 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
--- OUTSIDE RECORDS SUMMARY | 2024-11-15 20:47 | XMS_ITS | Encounter Summary ---
Author Organization [facility] Address [address] [place] [address] Care Team Providers Care Acting Instructor Name Role Phone Mau Terry MD Primary Care Provider Encounter Details Date Type Department Care Team (Latest Contact Info) Description 12/13/2000 Outpatient [facility] Facial Plastic Surgery[address] [place] [address] Tano Meneses MD NO ADDRESS ON FILE Follow-up examination, following unspecified surgery (Primary Dx) Social History Tobacco Use Types Packs/Day Years Used Date Smoking Tobacco: Never Assessed Comments Unknown Sex and Gender Information Value Date Recorded Sex Assigned at Not on file 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
--- OUTSIDE RECORDS SUMMARY | 2024-11-15 20:47 | XMS_ITS | Encounter Summary ---
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
--- OUTSIDE RECORDS SUMMARY | 2024-11-15 20:47 | XMS_ITS | Encounter Summary ---
Author Organization [facility] Address [address] [place] [address] Care Team Providers Care Hand Pattern Marker Name Role Phone Mau Terry MD Primary Care Provider [phone] Encounter Details Date Type Department Care Team (Latest Contact Info) Description 03/01/2001 Outpatient Historical [facility] [address] [facility] [address] [place] [address] Bryanna Bui MD NO ADDRESS ON FILE SCREENING MAMM-MAILG NEOPL-OTHER (Primary Dx) Social History Tobacco Use Types Packs/Day Years Used Date Smoking Tobacco: Never Assessed Comments Unknown Sex and Gender Information Value Date Recorded Sex Assigned at Not on file 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
--- OUTSIDE RECORDS SUMMARY | 2024-11-15 20:47 | XMS_ITS | Encounter Summary ---
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 (Primary Dx) Social History Tobacco Use Types Packs/Day Years Used Date Smoking Tobacco: Never Assessed Comments Unknown Sex and Gender Information Value Date Recorded Sex Assigned at Not on file 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
[2024-11-15 21:16] VITALS: BP 129/72; PULSE 65; RESP 17; O2SAT 92
--- NOTE | 2024-11-15 21:23 | ED_ITS ---
HPI - SOB/Dyspnea 2 General: Chief Complaint: Shortness of Breath/Dyspnea Stated Complaint: SOB Time Seen by Provider: 11/15/24 21:01 History of Present Illness: HPI Narrative: 69-year-old female with a history of yusuf al failure, recently off dialysis, presents with increasing shortness of breath since yesterday. She has gained over 10 pounds in 24 hours her says. She was bumped from 2 L to 3 L in the [facility]. She denies any chest pain. She has a chronic cough. No fever. No sputum production. Related Data Home Medications ?Medication ?Instructions ?Recorded ?Confirmed gabapentin 100 mg capsule 100 mg PO BID PRN nerve pain 08/05/24 11/11/24 magnesium 250 mg tablet 250 mg PO DAILY 08/05/24 Previous Rx's ?Medication ?Instructions ?Recorded semaglutide 2 mg/dose (8 mg/3 mL) 2 mg (0.75 mL) SUBCU T .weekly #3 mL 05/31/23 subcutaneous pen injector (SustainX) Held on 11/05/24. Instructions: see pcp romi radford with seat #1 ea 08/05/24 ezetimibe 10 mg tablet 10 mg PO DAILY #90 tabs 08/21 06/17 omeprazole 40 mg capsule,delayed 40 mg PO BID #120 cap s 10/15/24 release amlodipine 5 mg tablet 5 mg PO DAILY #30 tabs 10/28 clopidogrel 75 mg tablet 75 mg PO DAILY #90 tabs 12/15 isosorbide mononitrate 30 mg 30 mg PO DAILY #30 tabs 0 10/28/24 tablet,extended release 24 hr nitroglycerin 0.4 mg sublingual 0.4 mg sublingual Q5M PRN Chest 10/28/24 tablet Pain #25 tabs apixaban 5 mg tablet (Eliquis) 2.5 mg (1/2 x 5 mg) PO 11/05/24 BID@0900,2100 #60 tabs bumetanide 1 mg tablet 1 mg PO DAILY #30 tabs 11/05 ergocalciferol (vitamin D2) 1,250 50,000 unit PO Q7D # 3 caps 11/05/24 mcg (50,000 unit) capsule (Vitamin D2) hydralazine 10 mg tablet 10 mg PO TID #90 tabs insulin glargine 100 unit/mL (3 5 unit (0.05 mL) SUBCU T QPM #3 mL 11/05/24 mL) subcutaneous pen (Lantus Solostar U-100 Insulin) insulin lispro 100 unit/mL See Rx Instructions .Route 11/05/24 subcutaneous solution (Humalog .COMPLEX 30 days #10 mL U-100 Insulin) metoprolol tartrate 50 mg tablet 25 mg (1/2 x 50 mg) P O 11/05/24 BID@0900,2100 #60 tabs potassium chloride 10 mEq 10 meq PO DAILY #30 caps capsule,extended release Allergies Allergy/AdvReac Type Severity Reaction Status Date / Time sitagliptin (From Januvia) Allergy Unknown Unknown Verified 11/11/24 15:21 empagliflozin (From Allergy Unknown Verified 11/11/24 15:21 Jardiance) PFSH ED 2 PFSH: Medical History Transfusion of blood product declined due to latter day reason Cervical stenosis of spinal canal Lumbar stenosis with neurogenic claudication Lumbar disc disease with radiculopathy CKD (chronic kidney disease), stage IV CKD stage 3b, GFR 30-44 ml/min Diabetic nephropathy Squamous cell carcinoma of skin Nephrolithiasis History of ovarian cancer Chronic back pain Stage 3a chronic kidney disease (CKD) HLD (hyperlipidemia) Insulin dependent diabetes mellitus Essential hypertension Obesity Surgical History History of carpal tunnel release History of decompression of ulnar nerve H/O: hysterectomy Social History Smoking and tobacco/nicotine status: never used tobacco/nicotine Second hand smoke exposure: No Alcohol intake: current Alcohol intake frequency: few times a month Substance/Drug Use: never Additional social history: She wants full code as discussed with Tenzin and myself 10/17/2024 by Derian Hsieh MD Caregiver/support person: No Lives independently: No Household members: spouse Marital status: Number of children: 1 service: No Current occupational status: unemployed Current occupational exposures/hazards: No 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 Pets and animals: No Do you think of yourself as: Straight/Heterosexual Current gender identity: Female Physical Exam 2 Const: COMMON NORMALS: no acute distress GENERAL APPEARANCE: cooperative; not ill appearing and not frail appearing HENMT: COMMON NORMALS: normocephalic, atraumatic and Normal external nose present HEAD & SCALP: normocephalic and atraumatic FACE & SINUS: normal facial exam and face symmetric NOSE: Normal external nose present Eye: COMMON NORMALS: Equal, round and reactive pupils present and EOMs intact bilaterally PUPIL: Yes Equal, round and reactive pupils present Neck/C-Spine: GENERAL: Yes trachea midline Chest: CHEST: Yes Symmetrical chest wall rise Resp: COMMON NORMALS: normal respiratory effort, No retractions, No use of accessory muscles and clear to auscultation bilaterally AUSCULTATION: clear to auscultation bilaterally Cardio: COMMON NORMALS: regular rate and regular rhythm RATE: regular rate RHYTHM: regular rhythm GI: COMMON NORMALS: Normal to inspection, nondistended, normoactive bowel sounds present Extremity: GENERAL: Yes edema Neuro: ROBERTO COMA SCALE: document GCS findings [place] coma scale eye opening: Spontaneous Roberto coma scale verbal response: Orientated Roberto coma scale motor response: Obey commands [place] coma scale total score: 15 S ENSORY EXAM: Yes extremities (intact) Psych: COMMON NORMALS: speech normal SPEECH: Yes normal speech Skin: COMMON NORMALS: no rashes or lesions noted GENERAL SKIN EXAM: no rashes or lesions noted Course 2 Vital Signs: Vital signs: Vital Signs Temperature 98.1 F 11/15/24 20:45 Pulse Rate 100 11/16/24 00:53 Respiratory Rate 16 11/15/24 22:33 Blood Pressure 139/86 11/16/24 00:53 Pulse Oximetry 93 11/16/24 00:53 Oxygen Delivery Me thod Nasal Cannula 11/15/24 22:33 Oxygen Flow Rate 3 11/15/24 22:33 MDM - SOB/Dyspnea Medical Decision Making Patient with a history of chronic kidney disease. Her creatinine is 4, which is stable from prior. Potassium is 5.6. Chest X-ray shows vascular congestion and small pleural effusions. Her BNP is 16,000, which is improved from prior. She is not requiring more oxygen than normal. she is given IV lasix, and is starting to Diaries well. We will increase her bumex to 1 milligram twice daily for three days. She's to return for any worsening shortness of breath despite the above. She will need renal function and potassium checked in three to four days. Lab Data 11/15/24 21:15 11/15/24 21:15 Labs/Radiology: Radiology Impressions Chest X-Ray 11/15/24 20:46 IMPRESSION: Central vascular congestion with bibasilar airspace disease and pleural effusions. The lung base opacities could reflect atelectasis, edema, and/or infiltrate. Laboratory Results WBC 11.41 10^3/uL (3.29-11.43) 11/15/24 21:15 RBC 3.45 10^6/uL (3.85-5.65) L 11/15/24 21:15 Hgb 10.00 g/dL (11.27-16.99) L 11/15/24 21:15 Hct 32.2 % (36-47) L 11/15/24 21:15 MCV 93.3 fl (85-98) 11/15/24 21:15 MCH 29.0 pg (27-33) 11/15/24 21:15 MCHC 31.1 g/dL (30-55) 11/15/24 21:15 RDW 14.4 % (12.1-15.1) 11/15/24 21:15 Plt Count 397 10^3/cmm (157-399) 11/15/24 21:15 MPV 11.3 fL (7.4-10.4) H 11/15/24 21:15 Neut % (Auto) 68.4 % 11/15/24 21:15 Lymph % (Auto) 19.8 % 11/15/24 21:15 Callahan % (Auto) 6.2 % 11/15/24 21:15 Eos % (Auto) 3.7 % 11/15/24 21:15 Baso % (Auto) 1.1 % 11/15/24 21:15 Neut # (Auto) 7.81 10^3/uL (1.8-7.7) H 11/15/24 21:15 Lymph # (Auto) 2.3 10^3/uL (0.8-4.8) 11/15/24 21:15 Callahan # (Auto) 0.7 10^3/uL (0.2-0.9) 11/15/24 21:15 Eos # (Auto) 0.4 10^3/uL (0.0-0.8) 11/15/24 21:15 Baso # (Auto) 0.1 10^3/uL (0.0-0.1) 11/15/24 21:15 Nucleated RBC % (auto) 0 % 11/15/24 21:15 Nucleated RBCs # 0.0 /100WBC 11/15/24 21:15 Sodium 139 mmol/L (136-145) 11/15/24 21:15 Potassium 5.6 mmol/L (3.5-5.1) H 11/15/24 21:15 Chloride 102 mmol/L (98-107) 11/15/24 21:15 Carbon Dioxide 23 mmol/L (22-29) 11/15/24 21:15 Anion Gap 19.6 (5-19) H 11/15/24 21:15 BUN 65 mg/dL (8-23) H 11/15/24 21:15 Creatinine 4.1 mg/dL (0.5-0.9) H 11/15/24 21:15 GFR Calculation 10.9 mL/min (90-130) L 11/15/24 21:15 Glucose 182 mg/dL (65-115) H 11/15/24 21:15 Calculated Osmolality 311 mOsm/kg (285-295) H 11/15/24 21:15 Calcium 9.3 mg/dL (8.5-10.5) 11/15/24 21:15 Phosphorus 5.5 mg/dL (2.5-4.5) H 11/15/24 21:15 Magnesium 2.6 mg/dL (1.7-2.3) H 11/15/24 21:15 Total Bilirubin 0.2 mg/dL (0.15-1.2) 11/15/24 21:15 AST 12 U/L (0-32) 11/15/24 21:15 ALT 14 U/L (0-33) 11/15/24 21:15 Alkaline Phosphatase 140 U/L (35-105) H 11/15/24 21:15 NT-Pro-B Natriuret Pep 54077 pg/mL (0-125) H 11/15/24 21:15 Total Protein 7.8 g/dL (6.6-8.7) 11/15/24 21:15 Albumin 3.5 g/dL (3.5-5.2) 11/15/24 21:15 Globulin 4.3 g/dL (1.3-4.6) 11/15/24 21:15 All radiology interpretation(s) finalized by discharge Discharge Plan Discharge Patient Disposition: Home Clinical Impression: CKD (chronic kidney disease), stage IV, Pleural effusion, Pulmonary edema Condition: Stable Prescriptions: No Action Ozempic 2 mg/dose (8 mg/3 mL) pen injector 2 mg SUBCUT .weekly Qty: 3 3RF Rx Instructions: Sunday magnesium 250 mg tablet 250 mg PO DAILY gabapentin 100 mg capsule 100 mg PO BID PRN (Reason: nerve pain) (DME) rollaid walker with seat See Rx Instructions .Route .MEDSUPPLY Qty: 1 0RF Rx Instructions: As directed ezetimibe 10 mg tablet 10 mg PO DAILY Qty: 90 1RF omeprazole 40 mg capsule,delayed release(DR/EC) 40 mg PO BID Qty: 120 1RF isosorbide mononitrate 30 mg Tablet Extended Release 24 Hr 30 mg PO DAILY Qty: 30 0RF clopidogrel 75 mg Tablet 75 mg PO DAILY Qty: 90 0RF amlodipine 5 mg Tablet 5 mg PO DAILY Qty: 30 0RF nitroglycerin 0.4 mg Tablet, Sublingual 0.4 mg sublingual Q5M PRN (Reason: Chest Pain) Qty: 25 0RF hydralazine 10 mg Tablet 10 mg PO TID Qty: 90 0RF metoprolol tartrate 50 mg Tablet 25 mg PO BID@0900,2100 Qty: 60 0RF Eliquis 5 mg Tablet 2.5 mg PO BID@0900,2100 Qty: 60 0RF bumetanide 1 mg tablet 1 mg PO DAILY Qty: 30 0RF potassium chloride 10 mEq capsule, extended release 10 meq PO DAILY Qty: 30 0RF ergocalciferol (vitamin D2) [Vitamin D2] 1,250 mcg (50,000 unit) Capsule 50,000 unit PO Q7D Qty: 3 0RF insulin glargine [Lantus Solostar U-100 Insulin] 100 unit/mL (3 mL) insulin pen 5 unit SUBCUT QPM Qty: 3 0RF insulin lispro [Humalog U-100 Insulin] 100 unit/mL Solution See Rx Instructions .ROUTE .COMPLEX 30 Days Qty: 10 0RF Rx Instructions: WM & Bedtime: Mod Dose Regimen 141-180 mg/dl 4 units/SQ 181-220 mg/dl 6 units/SQ 221-260 mg/dl 8 units/SQ 261-300 mg/dl 10 units/SQ 301-350 mg/dl 12 units/SQ 351-400 mg/dl 14 units/SQ greater than 400 mg/dl call doctor Discharge Orders: Discharge ED (Routine); Ordered 11/16/24 Ordered By: Bam Armstrong Referrals: Jose Bah MD [Primary Care Provider, [facility]] - 1-3 days Patient Instructions: Pulmonary Edema (ED), Opioid Safety, Pain Management, Patient Portal & Cristiana Instructions Activity Restrictions/Additional Instructions: Increase your bumetanide dosage to 1 mg twice daily for the next 3 days, then back to your original dosage. You will need your kidney function retested as well as your potassium retested in 3 days. Return for worsening shortness of breath despite treatment, fever, chest discomfort, worsening swelling or weight gain, any other concerning symptoms. Print Language: Hungarian Coding Level of Care Code ED [employer] for Jan Mancuso
[2024-11-15 21:36] LABS: Hematocrit 32.2 % (36-47); Hemoglobin 10.00 g/dL (11.27-16.99); Mean Corpuscular HGB Conc 31.1 g/dL (30-55); Mean Corpuscular Hemoglobin 29.0 pg (27-33); Mean Corpuscular Volume 93.3 fl (85-98); Nucleated Red Blood Cells % 0 %; Platelet Count 397 10^3/cmm (157-399); Red Blood Count 3.45 10^6/uL (3.85-5.65); White Blood Count 11.41 10^3/uL (3.29-11.43)
[2024-11-15 21:50] VITALS: BP 133/63; PULSE 62; RESP 18; O2SAT 94
[2024-11-15 22:11] LABS: Alanine Aminotransferase 14 U/L (0-33); Albumin Level 3.5 g/dL (3.5-5.2); Alkaline Phosphatase 140 U/L (35-105); Anion Gap 19.6 (5-19); Aspartate Amino Transferase 12 U/L (0-32); Blood Urea Nitrogen 65 mg/dL (8-23); Calcium 9.3 mg/dL (8.5-10.5); Carbon Dioxide 23 mmol/L (22-29); Chloride 102 mmol/L (98-107); Creatinine Clr Calc Pharmacy 14.5562; Globulin 4.3 g/dL (1.3-4.6); Glucose 182 mg/dL (65-115); Magnesium 2.6 mg/dL (1.7-2.3); NT Pro B Type Natriuretic Pept 16039 pg/mL (0-125); Osmolality Calculated 311 mOsm/kg (285-295); Potassium 5.6 mmol/L (3.5-5.1); Sodium 139 mmol/L (136-145); Total Protein 7.8 g/dL (6.6-8.7)
[2024-11-15 22:33] VITALS: BP 148/73; PULSE 60; RESP 16; O2SAT 93
[2024-11-15] MEDS: FUROsemide 10 mg/mL SDV 10mL 80 MG IVP (23:07)
[2024-11-16 00:53] VITALS: BP 139/86; PULSE 100; O2SAT 93
--- NOTE | 2024-11-16 01:06 | PC.NURSE ---
report called to [facility]
== END 2024-11-16 01:09 | disposition home or self-care (01) ==
PROVIDERS: Emergency Medicine; Emergency Provider Emergency Medicine; PCP Family Medicine
DX: J90 Pleural effusion, not elsewhere classified (principal); J81.1 Chronic pulmonary edema; Z79.01 Long term (current) use of anticoagulants; Z79.4 Long term (current) use of insulin; Z79.02 Long term (current) use of antithrombotics/antiplatelets; E11.22 Type 2 diabetes mellitus with diabetic chronic kidney disease; I12.9 Hypertensive chronic kidney disease with stage 1 through stage 4 chronic kidney disease, or unspecified chronic kidney disease; N18.9 Chronic kidney disease, unspecified; E78.5 Hyperlipidemia, unspecified
CPT/HCPCS: 36415; 71045; 80053; 83735; 83880; 84100; 85025; 93005; 96374; 99285; J1938

== ENCOUNTER 2024-11-26 16:52 | Emergency (ER) | payer MEDICARE, SELFPAY ==
--- OUTSIDE RECORDS SUMMARY | 2024-11-16 21:27 | XMS_ITS | Encounter Summary ---
Author Organization [employer] Address [address] [place] [address] Care Team Providers Care Veterinarian Helper Name Role Phone Unavailable Primary Care Provider Unavailabl e Reason for Referral * Eval and Treat (Routine) - Closed Specialty Diagnoses / Procedures Referred By Jaqueline howard Referred To Contact Diagnoses Acute on chronic congestive heart failure, unspecified heart failure type (CMS/HCC) Procedures [place] OFFICE/OUTPATIENT ESTABLISHED MOD MDM 30 MIN [place] OFFICE/OUTPATIENT NEW MODERATE MDM 45 MINUTES Jenn Jackson MD [address] [address] Phone: tel: fax: Referral ID Status Reason Start Date Expiration Date Visits Re quested Visits Authorized [id number] Closed 11/20/2024 11/20/2025 1 1 Reason for Visit * Reason Comments Shortness of Breath Pt reports increased in shortness of breath. Pt reports needing dialysis * Auth/Cert (Routine) Specialty Diagnoses / Procedures Referred By Jaqueline howard Referred To Contact Emergency Medicine [facility] Emergency Department [address] [place] [address] Phone: tel: fax: Referral ID Status Reason Start Date Expiration Date Visits Re quested Visits Authorized [id number] 1 1 Encounter Details Date Type Department Care Team (Latest Contact Info) Description 11/16/2024 9:27 PM CDT - 11/20/2024 5:01 PM CDT Hospital Encounter [facility] 4B Cardiac [address] [place] [address] Morales Ball DO [address] [place] [address] Bryan Ramirez MD [address] [place] [address] Jenn Jackson MD [address] [address] Acute on chronic combined systolic and diastolic heart failure (CMS/HCC) Discharge Disposition: Home or Self Care Social History Tobacco Use Types Packs/Day Years Used Date Smoking Tobacco: Never Smokeless Tobacco: Never Alcohol Use Standard Drinks/Week Comments Yes 0 (1 standard drink = 0.6 oz pur e alcohol) Comments No Sex and Gender Information Value Date Recorded Sex Assigned at Not on file Legal Sex Female 12:33 PM CRITICAL CARE NURSE Gender Identity Not on file Sexual Orientation Not on file documented as of this encounter Last Filed Vital Signs Vital Sign Reading Time Taken Comments Blood Pressure 127/73 11/20/2024 12:12 PM CDT Pulse 108 11/20/2024 12:12 PM CDT Temperature 36.2 C (97.1 F) 11/20/2024 12:12 PM CDT Respiratory Rate 18 11/20/2024 12:12 PM CDT Oxygen Saturation 94% 11/20/2024 12:12 PM CDT Inhaled Oxygen Concentration - - Weight 86 kg (189 lb 9.5 oz) 11/20/2024 3:56 AM CDT Height 158.8 cm (5' 2.5 ) 11/16/2024 5:03 PM CDT Body Mass Index 34.12 11/16/2024 5:03 PM CDT documented in this encounter Discharge Summaries * Jenn Jackson MD - 11/20/2024 3:21 PM CDT [facility] Hospitalist/Internal Medicine Discharge Summary Date of admission: 11/16/2024 Date of discharge: 11/20/2024 Discharging physician: Jenn Jackson MD Discharge disposition: Home Discharge condition: improving Code status at discharge: Full Code Follow up with PCP: in 3 - 5 days. Follow up with consultants: nephrology, cardiology Labs and studies needing follow up: Primary discharge diagnosis: Acute on chronic combined systolic and diastolic heart failure (CMS/HCC) Other active medical issues also addressed during this admission: Active Hospital Problems Diagnosis History of recent coronary artery stent placement MANUELITO (acute kidney injury) Acute on chronic combined systolic and diastolic heart failure (CMS/HCC) Hyperkalemia Mixed hyperlipidemia Type 2 diabetes mellitus with stage 5 chronic kidney disease not on chronic dialysis, with long-term current use of insulin (CMS/HCC) Severe obesity (BMI 35.0-39.9) with comorbidity ([facility]/HCC) Fluid overload Chronic anticoagulation CKD (chronic kidney disease) stage 5, GFR less than 15 ml/min ([facility]/HCC) Pleural effusion Atherosclerosis of coronary artery without angina pectoris Paroxysmal atrial fibrillation ([facility]) Borderline glaucoma with ocular hypertension Essential hypertension Esophageal reflux Resolved Hospital Problems No resolved problems to display. Hospital course: Please see H and P for full details on admission, symptoms and initial care. 11/16/2024: Yesenia Lemus is a 69 y.o. female with several medical comorbidities including CKD, hyperlipidemia, IDDM, glaucoma, hypertension, GERD, obesity, CAD, status post heart stents, recent hospitalization for fluid overload, requiring thoracentesis as well as intermittent dialysis in [place], etc., who presented to ED from nursing facility with complains of worsening shortness of breath. In ED, the patient was afebrile, hemodynamically stable, and required 3 L supplemental oxygen. Significant labs noted were hemoglobin of 9 with normal MCV, proBNP 23K, troponin trended flat between 57-62, potassium 5.5, BUN 17, creatinine 4.08 with GFR 11, blood glucose 279. Chest x-ray with CHF pattern. The patient was admitted to internal medicine hospitalist service for management of MANUELITO on CKD withfluid overload, with possible component of heart failure. 11/17: GFR 11, potassium 5.8. Received Lokelma. Seen by nephrology, plans noted for starting hemodialysis tomorrow for MANUELITO. Hemodialysis line to be placed by IR tomorrow. Renal ultrasound showed smallbilateral renal cortical cysts, otherwise unremarkable exam. 11/18: Underwent dialysis line placement by IR and was started on hemodialysis. 11/19: Improving clinically. Continue current management. Discharge planning. Echo showed LVEF 40 to45%, diffuse hypokinesis, grade 2 diastolic dysfunction, moderately increased RVSP, moderately dilated LA, mildly dilated RA, moderate mitral regurgitation, mild to moderate tricuspid regurgitation, trivial pericardial effusion. Medical records from [facility] reviewed. 11/20: nauseous earlier today, better at present. Home oxygen evaluation showed no supplemental oxygen required. Outpatient dialysis arranged. Wishes to go home today. Medication changes: see below Medication Reconciliation: Current and discharge medications reviewed and reconciled: Yes Discharge exam: BP 127/73 (BP Location: Right arm, Patient Position (BP): Supine) Pulse (!) 108 Temp 97.1 ??F (36.2 ??C) (Temporal) Resp 18 Ht 5' 2.5 (1.588 m) Wt 86 kg (189 lb 9.5 oz) SpO2 94% BMI 34.12 kg/m?? Last documented weight: Weight: 86 kg (189 lb 9.5 oz) (11/20/24 0356) General appearance: alert, no distress. Lungs: normal respiratory effort, clear to auscultation bilaterally. Heart: normal rate and rhythm, normal S1, S2, no murmurs. Abdomen: bowel sounds normal, soft, non tender, no masses or organomegaly. Extremities: no cyanosis or edema Neurologic: grossly nonfocal. Patient instructions: Activity: activity as tolerated. Diet: DIET RENAL DIABETIC Wound care: None needed Discharge medications and new prescriptions: Medication List START taking these medications ondansetron 4 mg Tablet, Rapid Dissolve Commonly known as: ZOFRAN ODT Place 1 Tablet (4 mg) under tongue every 6 hours as needed for Nausea/Emesis. Dissolve tablet on top of tongue, then swallow with saliva. Signed by: Dr. Tera Jackson Quantity: 20 Tablet Refills: 0 CHANGE how you take these medications apixaban 5 mg tablet Commonly known as: ELIQUIS What changed: how much to take when to take this Take 1 Tablet (5 mg) by mouth 2 times daily. Signed by: Dr. Tera Jackson Quantity: 60 Tablet Refills: 2 CONTINUE taking these medications albuterol sulfate 90 mcg/Actuation inhaler Take 2 Puffs by inhalation every 6 hours as needed for Shortness of Breath or Wheezing. Refills: 0 amLODIPine 5 mg tablet Commonly known as: NORVASC Take 5 mg by mouth daily. Refills: 0 atorvastatin 40 mg tablet Commonly known as: LIPITOR Take 1 Tablet (40 mg) by mouth daily. Signed by: Dr. Adilson Lou Quantity: 90 Tablet Refills: 3 blood sugar diagnostic Strip Commonly known as: OneTouch Verio test strips Use to check BG 3x daily. E11. Signed by: Physician Senior Clinical Sas Programmer Italo Enrrique Quantity: 300 Strip Refills: 3 Blood-Glucose Meter Commonly known as: OneTouch Verio Flex meter Use to check BG 3x daily. E11. Signed by: Physician Senior Clinical Sas Programmer Italo Enrrique Quantity: 1 Each Refills: 0 cholecalciferol (Vitamin D3) 125 mcg (5,000 unit) Capsule Take 5,000 Units by mouth daily. Refills: 0 clopidogreL 75 mg Tablet Commonly known as: PLAVIX Take 75 mg by mouth daily. Refills: 0 ergocalciferol 50,000 unit capsule Commonly known as: VITAMIN D2 Take 50,000 Units by mouth every 7 days. Refills: 0 ezetimibe 10 mg tablet Commonly known as: ZETIA Take 10 mg by mouth daily. Refills: 0 FreeStyle Lucila 2 Aiken Misc Use to check BG. Signed by: Physician Assistant Puckett Enrrique Quantity: 1 Each Refills: 0 Generic drug: flash glucose scanning reader FreeStyle Lucila 2 Sensor Kit Replace every 14 days. Signed by: Physician Senior Clinical Sas Programmer Italo Enrrique Quantity: 6 Kit Refills: 3 Generic drug: flash glucose sensor gabapentin 100 mg capsule Commonly known as: NEURONTIN Take 100 mg by mouth 2 times daily. Refills: 0 galantamine 4 mg tablet Commonly known as: RAZADYNE Take 4 mg by mouth 2 times daily. Refills: 0 hydrALAZINE 10 mg tablet Commonly known as: APRESOLINE Take 10 mg by mouth every 8 hours. Refills: 0 insulin glargine 100 unit/mL pen syringe Commonly known as: LANTUS Inject 25 Units by subcutaneous injection daily at bedtime. Refills: 0 Insulin [place] (Disposable) 32 gauge x 5/32 Needle Commonly known as: BD Alexus 2nd Gen Pen Needle Use to inject insulin four times daily Signed by: Dr. Adilson Lou Quantity: 400 Each Refills: PRN irbesartan 150 mg tablet Commonly known as: AVAPRO Take 150 mg by mouth daily. Refills: 0 isosorbide mononitrate 30 mg Extended Release 24 hour tablet Commonly known as: IMDUR Take 30 mg by mouth daily in the morning. Refills: 0 lancets 30 gauge Commonly known as: OneTouch Delica Lancets Use to check BG 3x daily. E11.65 Signed by: Physician Senior Clinical Sas Programmer Italo Enrrique Quantity: 300 Each Refills: 3 latanoprost 0.005 % solution Commonly known as: XALATAN INSTILL 1 DROP INTO EACH EYE EVERY EVENING Refills: 0 magnesium OXIDE 250 mg magnesium Tablet Take by mouth. Refills: 0 metoprolol tartrate 25 mg tablet Commonly known as: LOPRESSOR Take 25 mg by mouth every 12 hours. Refills: 0 nitroglycerin 0.4 mg Tablet, Sublingual Commonly known as: NITROSTAT Place 0.4 mg under tongue every 5 minutes as needed for Chest Pain. Refills: 0 omega-3 fatty acids-fish oil 300-1,000 mg Capsule Take by mouth daily. Refills: 0 Ozempic 1 mg/dose (4 mg/3 mL) Pen Injector Inject 1.0 mg weekly. Signed by: Physician Assistant Puckett Enrrique Quantity: 9 mL Refills: 3 Generic drug: semaglutide pantoprazole 40 mg Tablet, Delayed Release (E.C.) Commonly known as: PROTONIX Take 1 Tablet (40 mg) by mouth daily. Signed by: Dr. Tera Jackson Quantity: 30 Tablet Refills: 2 STOP taking these medications bumetanide 1 mg tablet Commonly known as: BUMEX omeprazole 40 mg Capsule, Delayed Release(E.C.) Commonly known as: PriLOSEC potassium CHLORIDE 10 mEq Extended Release tablet Commonly known as: KLOR-CON Where to Get Your Medications These medications were sent to [facility] [address] [place] [address] [address] [address] Hours: M-F 4280-1048 Sat 4904-1513 Sun closed apixaban 5 mg tablet ondansetron 4 mg Tablet, Rapid Dissolve pantoprazole 40 mg Tablet, Delayed Release (E.C.) Total time spent on discharge services today including examining and educating the patient, writingprescriptions and reviewing the discharge medication list, documenting this discharge summary and coordinating outpatient care and follow up required 40 minutes. It has been a privilege to participate in this patient's care. Jenn Jackson MD This documentation was written in part with the use of [employer] speech to text software. Effort has been done to assure accuracy of geneticist. Any errors in spelling, syntax, or meaningshould be interpreted in the context of the broader note. Any obvious errors or omissions should beclarified with the author of the document. documented in this encounter Discharge Instructions * Discharge Instructions* Tanya Olivares RN - 11/19/2024 3:39 PM CDT Amy Discharge Instructions Discharge & Transfer patient to: Home Symptoms/Diagnosis: Acute on chronic combined systolic and diastolic heart failure (CMS/HCC) Procedures Performed, if any: 11/19 1630 Note By: Kimmy Biswas RN 11/19 1414 HEMODIALYSIS 11/18 1150 Note By: Darlyn Espinosa, TEHRON Follow up PCP in 3-5 days Follow up consultants Nephrology for dialysis management Future Appointments Date Time Provider Department Center 11/21/2024 6:30 AM [facility], DIALYSIS DLYSIS [facility] 03/26/2025 1:20 PM Carrie Osuna PA [facility] If the office does not reach you to make a follow up appointment, please call [phone]. Activity level: up as tolerated DIET: DIET RENAL DIABETIC Wound Care: Not Applicable Follow up in the Emergency Room For any recurrence or worsening of admission concerns, chest pain, palpitations, shortness of breath, coughing blood, nausea, vomiting, diarrhea, pain, fever, chills, bleeding, bloody or tarry stools, change to urine or bowel output, Jenn Jackson MD 11/20/2024, 10:03 AM DIALYSIS: [facility]: [phone] [place] [address]; 12:00 1ST APPT. START DATE:SundayNovember SERVICES ARRANGED from [employer] E[employer]IPMENT ARRANGED from Thank you for participating in your heart failure education. It's really important to know how to take care of your heart! If you have any questions or need help, please ask us anytime. Heart Failure means that your heart does not pump enough blood to meet your body???s needs. Sometimes fluid can back up into your lungs causing shortness of breath. Or fluid can back up into other parts of your body--you may notice swelling in your legs, feet or in your stomach area. As you retain fluid, your weight will go up. You may feel tired and not feel like eating. Most people tend to havethe same symptoms each time their heart failure worsens. Heart failure zones give you an easy way to see changes in your heart failure symptoms. They also tell you when you need to get help. Check every day to see which zone you are in: HEART FAILURE ZONE MANAGEMENT EVERYDAY: Weigh yourself in the morning after going to the bathroom but before eating or drinking. Record your weight on your CHF Daily Record Sheet (in your Living With Heart Failure booklet) and compare it to the prior day???s weight. Take your medicine as prescribed. Check your feet, ankles, legs, and abdomen for swelling. Assess your breathing (was it difficult to lay flat or are you more short of breath). Eat low salt food. Balance activity and rest periods. What Heart Failure Zone are you today? GREEN, YELLOW, or RED? GREEN ZONE: All CLEAR when: Your weight is stable. You have no trouble breathing. You can do your normal activity. You have no changes in your symptoms. YELLOW ZONE: CAUTION! Call your health care provider today: Your weight goes up 2 pounds in one day or 4-vd-0-pound gradual weight gain over a week. You have more swelling in your feet, ankles, legs, or abdomen. Increased shortness of breath. You have a dry cough that does not go away. You use 2 or more pillows or a recliner to breathe better at night and this is new for you. You feel more tired or have less energy than usual. You have SIDE EFFECTS from your medicines. RED ZONE: MEDICAL ALERT EMERGENCY! CALL RIGHT AWAY when: You have unrelieved shortness of breath at rest or struggling to breathe. You have unrelieved chest pain. You have unrelieved wheezing or chest tightness at rest. You are having confusion or cannot think clearly. CALL 911 for severe shortness of breath or chest pain that will not go away. * Attachments The following attachments cannot be sent through Care Everywhere. * Low Sodium Diet (Greenlandic) * Fluid Restriction (Greenlandic) * Heart Failure Mercy (Greenlandic) * Heart Failure: Medicines (Greenlandic) * Heart Failure: Medicines to Avoid (Greenlandic) * Diabetes Diet Meal Planning: General Info (Greenlandic) * Diabetes: Carb Counting and Eating Well: General Info (Greenlandic) * Diabetes: Counting Carbohydrates (Greenlandic) * Ondansetron (Greenlandic) documented in this encounter Medications at Time of Discharge apixaban (ELIQUIS) 5 mg tablet Take 1 Tablet (5 mg) by mouth 2 times daily. 60 Tablet 2 11/20/2024 pantoprazole (PROTONIX) 40 mg Tablet, Delayed Release (E.C.) Take 1 Tablet (40 mg) by mouth daily. 30 Tablet 2 11/20/2024 ondansetron (ZOFRAN ODT) 4 mg Tablet, Rapid Dissolve Place 1 Tablet (4 mg) under tongue every 6 hours as needed for Nausea/Emesis. Dissolve tablet on top of tongue, then swallow with saliva. 20 Tablet 11/20/2024 gabapentin (NEURONTIN) 100 mg capsule Take 100 mg by mouth 2 times daily. albuterol sulfate HFA 90 mcg/actuation aerosol inhaler Take 2 Puffs by inhalation every 6 hours as needed for Shortness of Breath or Wheezing. ergocalciferol (VITAMIN D2) 50,000 unit capsule Take 50,000 Units by mouth every 7 days. nitroglycerin (NITROSTAT) 0.4 mg Tablet, Sublingual Place 0.4 mg under tongue every 5 minutes as needed for Chest Pain. amLODIPine (NORVASC) 5 mg tablet Take 5 mg by mouth daily. 10/29/2024 clopidogreL (PLAVIX) 75 mg Tablet Take 75 mg by mouth daily. 10/29/2024 ezetimibe (ZETIA) 10 mg tablet Take 10 mg by mouth daily. 12/11/2023 hydrALAZINE (APRESOLINE) 10 mg tablet Take 10 mg by mouth every 8 hours. 11/07/2024 insulin glargine (LANTUS) 100 unit/mL pen syringe Inject 25 Units by subcutaneous injection daily at bedtime. 11/12/2024 isosorbide mononitrate (IMDUR) 30 mg Extended Release 24 hour tablet Take 30 mg by mouth daily in the morning. 10/29/2024 metoprolol tartrate (LOPRESSOR) 25 mg tablet Take 25 mg by mouth every 12 hours. 11/07/2024 galantamine (RAZADYNE) 4 mg tablet Take 4 mg by mouth 2 times daily. semaglutide (Ozempic) 1 mg/dose (4 mg/3 mL) Pen Injector Inject 1.0 mg weekly. 9 mL 3 06/01/2022 Insulin [place], Disposable, (BD Alexus 2nd Gen Pen Needle) 32 gauge x 5/32 Needle Use to inject insulin four times daily 400 Each 04/07/2022 irbesartan (AVAPRO) 150 mg tablet Take 150 mg by mouth daily. 09/28/2021 latanoprost (XALATAN) 0.005 % solution INSTILL 1 DROP INTO EACH EYE EVERY EVENING 09/05/2021 magnesium oxide 250 mg magnesium Tablet Take by mouth. omega-3 fatty acids-fish oil 300-1,000 mg Capsule Take by mouth daily. cholecalciferol, Vitamin D3, 125 mcg (5,000 unit) Capsule [...] flash glucose scanning reader (FreeStyle Lucila 2 Aiken) [facility] Use to check BG. 1 Each 07/13/2021 atorvastatin (LIPITOR) 40 mg tablet Take 1 Tablet (40 mg) by mouth daily. 90 Tablet 3 11/11/2020 documented as of this encounter Progress Notes * Keira Barajas LCSW - 11/20/2024 11:08 AM CDT Roping Tender Discharge Plan: I notified Carolin at [facility] [place] today. Pt will begin treatments tomorrow. Expected Discharge Date Nov 20, 2024 Plan Discharge To: Home with family assist (11/18/24 1503) Plan Discharge To - Alternate: Home Health Services (11/18/24 1503) 11/20/24 1056 Discharge Planning Transportation Provider Transportation Contact Name Tenzin Transportation Provider Final Discharge Arrangements Final Discharge Disposition Home (home with 's assistance) Services Arranged For Discharge (dialysis) Agency Name [facility] Contact Name Carolin Agency Date Of Pick-Up 11/20/24 Copy of this transfer form will be sent with patient along with: Pertinent Medical Records Referrals Status: Preferred Pharmacy: [facility] - [address] HOME DELIVERY [address] Patient / Family Communications Resources Provided Transportation Plan: Transportation Provider: (11/20/24 105) Transportation Contact Name: Tenzin (11/20/24 105) Transportation Provider Phone: (P) [phone] (11/20/24 1056) Date Of Pick-Up: (P) 11/20/24 (11/20/24 1056) Follow Up Appointments Scheduled Keira Barajas LCSW * Tanya Olivares RN - 11/20/2024 10:31 AM CDT Learners: Patient Readiness: Unable to Complete Education OtherPatient requesting I come back after family arrives atnoon. Spoke with RN-we will remain in contact and coordinate education prior to discharge 1143 Learners: Patient and Significant Other Readiness: Eager Method: Explanation and Handout Teaching Points Response Understanding Heart Failure Verbalizes Understanding Heart Failure Medication Management Importance of Taking as Prescribed Side Effects Preferred Pharmacy: [id number] - [place], [place] - [address] [facility] - [place], [place] - [address] Verbalizes Understanding Diet and Nutrition Prescribed Diet Incorporating Healthy Eating Habits Reading and Understanding Nutrition Labels Managing Sodium Intake Managing Fluid Intake Verbalizes Understanding Symptom Management Self-Monitoring & Symptom Tracking Shortness of Breath Fatigue/Tiredness Swelling/Edema Weight Gain Blood Pressure Rapid or Irregular Heartbeat Mental Fatigue/Depression Verbalizes Understanding Physical Activity Exercise Rest Daily Goal(s) Verbalizes Understanding Smoking Cessation (if applicable) Tobacco Marijuana Vaping Quitting Resources Verbalizes Understanding Alcohol and Caffeine Consumption and Moderation Effects on Heart and Health Verbalizes Understanding Stress Management Awareness Reduction Strategies Verbalizes Understanding Sleep Sleep Schedule and Routine Verbalizes Understanding Physician/Provider Follow Up Appointment Importance of Keeping All Appointments Ongoing Monitoring and Early Identification of Issues Verbalizes Understanding Primary Care Provider Name: Tray Casting Machine Operator Name: Patient Care Team: Sherman Diaz MD Thomas, Johnson, MD (Endocrinology) Carrie Osuna PA (Physician Senior Clinical Sas Programmer) Ирина Clarke Post Hospitalization Follow Up Appointment With: Date/Time: Free Text Date/Time Health Related Social Needs Impacting Care None Identified Consults and Referrals Identified: None Identified Comments: Patient reports being noncompliant with medication- stressed importance of compliance with medication, sodium, and fluid restrictions. Will provide additional resources for DM diet, NA, and fluid restriction on discharge paperwork. Has liquor clerk and PCP with [facility]. * Jenn Jackson MD - 11/20/2024 8:31 AM CDT Images from the original note were not included. Your life is our life's work [facility] Internal Medicine Hospitalist Daily Progress Note LOS: 4 days Room/bed: 41706/22 Hospital course summary: 11/16/2024: Yesenia Lemus is a 69 y.o. female with several medical comorbidities including CKD, hyperlipidemia, IDDM, glaucoma, hypertension, GERD, obesity, CAD, status post heart stents, recent hospitalization for fluid overload, requiring thoracentesis as well as intermittent dialysis in [place], etc., who presented to ED from nursing facility with complains of worsening shortness of breath. In ED, the patient was afebrile, hemodynamically stable, and required 3 L supplemental oxygen. Significant labs noted were hemoglobin of 9 with normal MCV, proBNP 23K, troponin trended flat between 57-62, potassium 5.5, BUN 17, creatinine 4.08 with GFR 11, blood glucose 279. Chest x-ray with CHF pattern. The patient was admitted to internal medicine hospitalist service for management of MANUELITO on CKD withfluid overload, with possible component of heart failure. 11/17: GFR 11, potassium 5.8. Received Lokelma. Seen by nephrology, plans noted for starting hemodialysis tomorrow for MANUELITO. Hemodialysis line to be placed by IR tomorrow. Renal ultrasound showed smallbilateral renal cortical cysts, otherwise unremarkable exam. 11/18: Underwent dialysis line placement by IR and was started on hemodialysis. 11/19: Improving clinically. Continue current management. Discharge planning. Echo showed LVEF 40 to45%, diffuse hypokinesis, grade 2 diastolic dysfunction, moderately increased RVSP, moderately dilated LA, mildly dilated RA, moderate mitral regurgitation, mild to moderate tricuspid regurgitation, trivial pericardial effusion. [place] [facility] [place]. 11/20: nauseous today. Home oxygen evaluation showed no supplemental oxygen required. Outpatient dialysis arranged. SUBJECTIVE: Interval history: Breathing is stable. Complains of nausea today. OBJECTIVE: Vital signs: Blood pressure 118/60, pulse 68, temperature 97.8 ??F (36.6 ??C), temperature source Temporal, resp. rate 18, height 5' 2.5 (1.588 m), weight 86 kg (189 lb 9.5 oz), SpO2 91%. In last 24 hours, range of BP: (116-154)/(53-95) . Temp (24hrs), Av.7 ??F (36.5 ??C), Min:96.4 ??F (35.8 ??C), Max:98.7 ??F (37.1 ??C) Intake/Output Summary (Last 24 hours) at 11/20/2024 0831 Last data filed at 11/20/2024 0315 Gross per 24 hour Intake 700 ml Output 2500 ml Net -1800 ml Physical exam: General appearance: alert, awake, in no distress, laying comfortably in bed. HEENT: NC in place. Cardiovascular: normal rate, regular rhythm, normal S1, S2, no murmurs appreciated. Respiratory: normal effort; diminished breath sounds at bases. Abdomen: no distention, normal bowel sounds, soft, non-tender. Musculoskeletal: Bilateral pitting pedal edema. Neurologic: oriented to person, place and time; grossly non focal. Psychiatric: intact judgement and insight, normal mood and affect, behavior is normal. Data review: Results for orders placed or performed during the hospital encounter of 11/16/24 (from the past 24 hours) ECHO COMPLETE - CONTRAST AND STRAIN IF INDICATED Result Value Ref Range EJECTION FRACTION 41 POC GLUCOSE Result Value Ref Range GLUCOSE POC 207 (H) 74 - 99 mg/dL SPECIMEN SOURCE, GLUCOSE POC Capillary POC GLUCOSE Result Value Ref Range GLUCOSE POC 118 (H) 74 - 99 mg/dL SPECIMEN SOURCE, GLUCOSE POC Capillary POC GLUCOSE Result Value Ref Range GLUCOSE POC 127 (H) 74 - 99 mg/dL SPECIMEN SOURCE, GLUCOSE POC Capillary CBC WITH DIFFERENTIAL Result Value Ref Range WBC 11.1 (H) 4.8 - 10.8 K/uL RBC 3.20 (L) 4.20 - 5.40 M/uL HEMOGLOBIN 9.0 (L) 12.0 - 16.0 g/dL HEMATOCRIT 28.8 (L) 36.0 - 46.0 % MCV 90.0 84.0 - 103.0 fL MCH 28.1 27.0 - 34.0 pg MCHC 31.3 30.0 - 35.0 g/dL PLATELETS 264 140 - 440 K/uL MPV 10.8 8.9 - 12.8 fL RDW 14.4 11.0 - 14.5 % RDW-STDEV 46.6 37.0 - 54.0 fL NEUTROPHILS 67 42 - 75 % LYMPHOCYTES 20 (L) 24 - 44 % MONOCYTES 9 2 - 10 % EOSINOPHILS 4 0 - 7 % BASOPHILS 1 0 - 1 % IMMATURE GRANULOCYTES 1 0 - 2 % NEUTROPHIL ABSOLUTE 7.38 2.00 - 8.00 K/uL LYMPHOCYTE ABSOLUTE 2.23 1.20 - 4.00 K/uL MONOCYTE ABSOLUTE 0.96 (H) 0.10 - 0.60 K/uL EOSINOPHIL ABSOLUTE 0.39 0.00 - 0.70 K/uL BASOPHILS ABSOLUTE 0.05 0.00 - 0.20 K/uL IMMATURE GRANULOCYTES ABSOLUTE 0.07 0.00 - 0.10 K/uL SMEAR REVIEWED: NA - Not Applicable RENAL FUNCTION PANEL Result Value Ref Range SODIUM 139 136 - 145 mmol/L POTASSIUM 3.8 3.5 - 5.1 mmol/L CHLORIDE 102 98 - 107 mmol/L CO2 26 22 - 29 mmol/L CALCIUM 8.8 8.8 - 10.2 mg/dL BUN 27 (H) 8 - 23 mg/dL CREATININE 2.86 (H) 0.51 - 0.95 mg/dL GLUCOSE 96 74 - 99 mg/dL ALBUMIN 3.1 (L) 3.5 - 5.2 g/dL PHOSPHORUS 3.5 2.5 - 4.5 mg/dL GFR 17 (L) >=60 mL/min/1.73 sq meter ANION GAP 11 9 - 20 mmol/L POC GLUCOSE Result Value Ref Range GLUCOSE POC 96 74 - 99 mg/dL SPECIMEN SOURCE, GLUCOSE POC Capillary ASSESSMENT AND PLAN: Primary diagnosis: Acute on chronic combined systolic and diastolic heart failure ([facility]/HCC) Other active medical issues also addressed during this admission: Active Hospital Problems Diagnosis History of recent coronary artery stent placement MANUELITO (acute kidney injury) Acute on chronic combined systolic and diastolic heart failure ([facility]) Hyperkalemia Mixed hyperlipidemia Type 2 diabetes mellitus with stage 5 chronic kidney disease not on chronic dialysis, with long-term current use of insulin ([facility]) Severe obesity (BMI 35.0-39.9) with comorbidity ([facility]/HCC) Fluid overload Chronic anticoagulation CKD (chronic kidney disease) stage 5, GFR less than 15 ml/min ([facility]) Pleural effusion Atherosclerosis of coronary artery without angina pectoris Paroxysmal atrial fibrillation ([facility]) Borderline glaucoma with ocular hypertension Essential hypertension Esophageal reflux Resolved Hospital Problems No resolved problems to display. Acute problems: Fluid overload - Suspect multifactorial due to MANUELITO on CKD and heart failure. - improving. Acute on chronic combined systolic and diastolic heart failure - Manifested as shortness of breath, leg swelling, elevated proBNP, imaging evidence of pulmonary congestion and bilateral pleural effusions. - Echo showed LVEF 40 to 45%, diffuse hypokinesis, grade 2 diastolic dysfunction, moderately increased RVSP, moderately dilated LA, mildly dilated RA, moderate mitral regurgitation, mild to moderate tricuspid regurgitation, trivial pericardial effusion. - Defer fluid management to nephrology. The patient is currently on dialysis. - improving symptomatically. - Continue low-salt diet with fluid restriction as ordered. - Monitor I/O, daily weight, renal function and electrolytes. MANUELITO (acute kidney injury) on CKD4, now progressing to CKD 5 - Nephrology following. - dialysis line placed by IR on 11/18 and started on hemodialysis. - Avoid nephrotoxic medications. - Continue to monitor. Hyperkalemia - Suspect secondary to worsening of CKD. - Resolved with dialysis. - Continue to hold [employer] potassium supplement and ARB. Nausea without vomiting -supportive care. DVT prophylaxis: Eliquis Code status: Full Code Active chronic problems: Atherosclerosis of coronary artery without angina pectoris Recent coronary stent placement - Records [place] [facility] [place] the patient had PCI with placement of 2 stents in the proximal LCx and 1 stent in the ramus intermedius last month. - Continue with Plavix, Eliquis and Lipitor. Mixed hyperlipidemia - Continue Lipitor and ezetimibe. Paroxysmal atrial fibrillation Chronic anticoagulation - Continue metoprolol for rate control and apixaban for chronic anticoagulation. Essential hypertension - Continue amlodipine, hydralazine and metoprolol. Esophageal reflux - Continue protonix. Stage 4 CKD progressing to stage 5 - Defer to nephrology. Type 2 diabetes mellitus - POC glucose checks are stable today. - Continue hyperglycemia pathway with basal/bolus insulin regimen and diabetic diet as ordered, with a goal POC glucose checks of 110 - 180. Lantus decreased to 23U HS. - Avoid hypoglycemia. Severe obesity (BMI 35.0-39.9) with comorbidity - Body mass index is 34.12 kg/m??. - Obesity is associated with significant increase in mortality and many health risks, including type 2 diabetes mellitus, hypertension, dyslipidemia, and coronary heart disease. The higher the body mass index (BMI), the greater the risk of morbidity and mortality. - Once discharged from hospital and acute issues improve, recommend follow up with PCP to begin comprehensive lifestyle intervention, including dietary therapy, exercise and behavior modifications. Incidental findings on imaging studies needing outpatient monitoring or follow up: Small bilateral renal cortical cysts Anticipated Disposition: Anticipated discharge location: home Timeframe: 11/21/2024 Criteria: clinical improvement, workups completed, outpatient dialysis chair time available. Education/DME/Equipment Needs: Outpatient follow up: pcp, nephrology Jenn Jackson MD This documentation was written in part with the use of [employer] speech to text software. Effort has been done to assure accuracy of geneticist. Any errors in spelling, syntax, or meaningshould be interpreted in the context of the broader note. Any obvious errors or omissions should beclarified with the author of the document. * Keira Barajas LCSW - 11/19/2024 3:43 PM CDT Roping Tender Discharge Planning Arrangements reviewed with pt and , both are agreeable with arrangements. Expected Discharge Date Nov 21, 2024 Plan Discharge To: Home with family assist (11/18/24 1503) 11/19/241538 Discharge Planning Transportation Provider Transportation Contact Name Tenzin Final Discharge Arrangements Final Discharge Disposition (Home under family care) Services Arranged For Discharge Outpatient dialysis Agency Name [facility] Contact Name Joey-Health Information TechnologistAircraft Designer Phone Number Clinic: [phone] Date Of Pick-Up 11/20/24 Copy of this transfer form will be sent with patient along with: Pertinent Medical Records Referrals Status:Pt accepted at [facility], [address] [place] [address]. M-W-F 12:10pm; 12 noon 1st treatment, scheduled SundayNov 21. [phone] Preferred Pharmacy: [facility] - [address] [facility] [address] Patient / Family Communications pt and husb updated and agreeable Resources Provided Transportation Plan: Transportation Provider: (11/19/241538) Transportation Contact Name: (Tera) Tenzin (11/19/241538) Date Of Pick-Up: (P) 11/20/24 (11/19/241538) Follow Up Appointments Scheduled Keira Barajas LCSW * Jenn Jackson MD - 11/19/2024 8:52 AM CDT Images from the original note were not included. Your life is our life's work [facility] Internal Medicine Hospitalist Daily Progress Note LOS: 3 days Room/bed: 4173/02 Hospital course summary: 11/16/2024: Yesenia Lemus is a 69 y.o. female with several medical comorbidities including CKD, hyperlipidemia, IDDM, glaucoma, hypertension, GERD, obesity, CAD, status post heart stents, recent hospitalization for fluid overload, requiring thoracentesis as well as intermittent dialysis in [place], etc., who presented to ED from nursing facility with complains of worsening shortness of breath. In ED, the patient was afebrile, hemodynamically stable, and required 3 L supplemental oxygen. Significant labs noted were hemoglobin of 9 with normal MCV, proBNP 23K, troponin trended flat between 57-62, potassium 5.5, BUN 17, creatinine 4.08 with GFR 11, blood glucose 279. Chest x-ray with CHF pattern. The patient was admitted to internal medicine hospitalist service for management of MANUELITO on CKD withfluid overload, with possible component of heart failure. 11/17: GFR 11, potassium 5.8. Received Lokelma. Seen by nephrology, plans noted for starting hemodialysis tomorrow for MANUELITO. Hemodialysis line to be placed by IR tomorrow. Renal ultrasound showed smallbilateral renal cortical cysts, otherwise unremarkable exam. 11/18: Underwent dialysis line placement by IR and was started on hemodialysis. 11/19: Improving clinically. Continue current management. Discharge planning. Echo showed LVEF 40 to45%, diffuse hypokinesis, grade 2 diastolic dysfunction, moderately increased RVSP, moderately dilated LA, mildly dilated RA, moderate mitral regurgitation, mild to moderate tricuspid regurgitation, trivial pericardial effusion. Medical records from [facility] [place]. SUBJECTIVE: Interval history: Breathing is stable. No new complaints. OBJECTIVE: Vital signs: Blood pressure (!) 153/86, pulse (!) 105, temperature 97.3 ??F (36.3 ??C), temperature source Temporal, resp. rate 16, height 5' 2.5 (1.588 m), weight 90.3 kg (199 lb 1.2 oz), SpO2 94%. In last 24 hours, range of BP: (120-157)/(62-103) . Temp (24hrs), Av.2 ??F (36.2 ??C), Min:96.6 ??F (35.9 ??C), Max:97.8 ??F (36.6 ??C) Intake/Output Summary (Last 24 hours) at 11/19/2024 0852 Last data filed at 11/19/2024 0430 Gross per 24 hour Intake 880 ml Output 1801 ml Net -921 ml Physical exam: General appearance: alert, awake, in no distress, laying comfortably in bed. HEENT: NC in place. Cardiovascular: normal rate, regular rhythm, normal S1, S2, no murmurs appreciated. Respiratory: normal effort; diminished breath sounds at bases. Abdomen: no distention, normal bowel sounds, soft, non-tender. Musculoskeletal: Bilateral pitting pedal edema. Neurologic: oriented to person, place and time; grossly non focal. Psychiatric: intact judgement and insight, normal mood and affect, behavior is normal. Data review: Results for orders placed or performed during the hospital encounter of 11/16/24 (from the past 24 hours) POC GLUCOSE Result Value Ref Range GLUCOSE POC 125 (H) 74 - 99 mg/dL SPECIMEN SOURCE, GLUCOSE POC Venous ACUTE HEPATITIS PANEL Result Value Ref Range HEPATITIS B SURFACE AG Non-reactive Non-reactive HEPATITIS B CORE IGM Non-reactive Non-reactive HEPATITIS A IGM Non-reactive Non-reactive HEPATITIS C AB Non-reactive Non-reactive POC GLUCOSE Result Value Ref Range GLUCOSE POC 114 (H) 74 - 99 mg/dL SPECIMEN SOURCE, GLUCOSE POC Capillary POC GLUCOSE Result Value Ref Range GLUCOSE POC 158 (H) 74 - 99 mg/dL SPECIMEN SOURCE, GLUCOSE POC Capillary POC GLUCOSE Result Value Ref Range GLUCOSE POC 158 (H) 74 - 99 mg/dL SPECIMEN SOURCE, GLUCOSE POC Capillary CBC WITH DIFFERENTIAL Result Value Ref Range WBC 8.6 4.8 - 10.8 K/uL RBC 3.38 (L) 4.20 - 5.40 M/uL HEMOGLOBIN 9.5 (L) 12.0 - 16.0 g/dL HEMATOCRIT 30.1 (L) 36.0 - 46.0 % MCV 89.1 84.0 - 103.0 fL MCH 28.1 27.0 - 34.0 pg MCHC 31.6 30.0 - 35.0 g/dL PLATELETS 283 140 - 440 K/uL MPV 11.3 8.9 - 12.8 fL RDW 14.3 11.0 - 14.5 % RDW-STDEV 45.9 37.0 - 54.0 fL NEUTROPHILS 67 42 - 75 % LYMPHOCYTES 19 (L) 24 - 44 % MONOCYTES 10 2 - 10 % EOSINOPHILS 3 0 - 7 % BASOPHILS 1 0 - 1 % IMMATURE GRANULOCYTES 0 0 - 2 % NEUTROPHIL ABSOLUTE 5.72 2.00 - 8.00 K/uL LYMPHOCYTE ABSOLUTE 1.66 1.20 - 4.00 K/uL MONOCYTE ABSOLUTE 0.85 (H) 0.10 - 0.60 K/uL EOSINOPHIL ABSOLUTE 0.26 0.00 - 0.70 K/uL BASOPHILS ABSOLUTE 0.09 0.00 - 0.20 K/uL IMMATURE GRANULOCYTES ABSOLUTE 0.02 0.00 - 0.10 K/uL SMEAR REVIEWED: NA - Not Applicable RENAL FUNCTION PANEL Result Value Ref Range SODIUM 143 136 - 145 mmol/L POTASSIUM 3.8 3.5 - 5.1 mmol/L CHLORIDE 106 98 - 107 mmol/L CO2 26 22 - 29 mmol/L CALCIUM 9.1 8.8 - 10.2 mg/dL BUN 43 (H) 8 - 23 mg/dL CREATININE 3.35 (H) 0.51 - 0.95 mg/dL GLUCOSE 71 (L) 74 - 99 mg/dL ALBUMIN 3.3 (L) 3.5 - 5.2 g/dL PHOSPHORUS 4.5 2.5 - 4.5 mg/dL GFR 14 (L) >=60 mL/min/1.73 sq meter ANION GAP 11 9 - 20 mmol/L POC GLUCOSE Result Value Ref Range GLUCOSE POC 76 74 - 99 mg/dL SPECIMEN SOURCE, GLUCOSE POC Capillary POC GLUCOSE Result Value Ref Range GLUCOSE POC 90 74 - 99 mg/dL SPECIMEN SOURCE, GLUCOSE POC Capillary ASSESSMENT AND PLAN: Primary diagnosis: Acute CHF ([facility]) Other active medical issues also addressed during this admission: Active Hospital Problems Diagnosis MANUELITO (acute kidney injury) Acute on chronic combined systolic and diastolic heart failure ([facility]) Hyperkalemia Mixed hyperlipidemia 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 Acute problems: Fluid overload - Suspect multifactorial due to MANUELITO on CKD and heart failure. Acute on chronic combined systolic and diastolic heart failure - Manifested as shortness of breath, leg swelling, elevated proBNP, imaging evidence of pulmonary congestion and bilateral pleural effusions. - Echo showed LVEF 40 to 45%, diffuse hypokinesis, grade 2 diastolic dysfunction, moderately increased RVSP, moderately dilated LA, mildly dilated RA, moderate mitral regurgitation, mild to moderate tricuspid regurgitation, trivial pericardial effusion. - Defer fluid management to nephrology. The patient is currently on dialysis. - Continue low-salt diet with fluid restriction as ordered. - Monitor I/O, daily weight, renal function and electrolytes. MANUELITO (acute kidney injury) on CKD4, now progressing to CKD 5 - Nephrology following. - dialysis line placed by IR on 11/18 and started on hemodialysis. - Avoid nephrotoxic medications. - Continue to monitor. Hyperkalemia - Suspect secondary to worsening of CKD. - Resolved with dialysis. - Continue to hold [employer] potassium supplement and ARB. DVT prophylaxis: Eliquis Code status: Full Code Active chronic problems: Atherosclerosis of coronary artery without angina pectoris Recent coronary stent placement - Records [place] [facility] [place] the patient had PCI with placement of 2 stents in the proximal LCx and 1 stent in the ramus intermedius last month. - Continue with Plavix, Eliquis and Lipitor. Mixed hyperlipidemia - Continue Lipitor and ezetimibe. Paroxysmal atrial fibrillation Chronic anticoagulation - Continue metoprolol for rate control and apixaban for chronic anticoagulation. Essential hypertension - Continue amlodipine, hydralazine and metoprolol. Esophageal reflux - Continue protonix. Stage 4 CKD progressing to stage 5 - Defer to nephrology. Type 2 diabetes mellitus - Noted hypoglycemic this morning at 71. Continue to monitor POC glucose checks. - Continue hyperglycemia pathway with basal/bolus insulin regimen and diabetic diet as ordered, with a goal POC glucose checks of 110 - 180. Lantus decreased to 23U HS. - Avoid hypoglycemia. Severe obesity (BMI 35.0-39.9) with comorbidity - Body mass index is 35.83 kg/m??. - Obesity is associated with significant increase in mortality and many health risks, including type 2 diabetes mellitus, hypertension, dyslipidemia, and coronary heart disease. The higher the body mass index (BMI), the greater the risk of morbidity and mortality. - Once discharged from hospital and acute issues improve, recommend follow up with PCP to begin comprehensive lifestyle intervention, including dietary therapy, exercise and behavior modifications. Incidental findings on imaging studies needing outpatient monitoring or follow up: Small bilateral renal cortical cysts Anticipated Disposition: Anticipated discharge location: back to DC Timeframe: 11/20/2024 Criteria: clinical improvement, workups completed, outpatient dialysis chair time available. Education/DME/Equipment Needs: Outpatient follow up: pcp, nephrology Jenn Jackson MD This documentation was written in part with the use of [employer] speech to text software. Effort has been done to assure accuracy of geneticist. Any errors in spelling, syntax, or meaningshould be interpreted in the context of the broader note. Any obvious errors or omissions should beclarified with the author of the document. * Tae Rosales MD - 11/18/2024 10:18 AM CDT Dialysis Procedure Note Subjective- drowsy post anesthesia. Vitals: 11/18/24 0945 BP: (!) 144/81 Pulse: 100 Resp: 10 Temp: SpO2: 90% Gen no distress Heent at nc resp Cv rrr Resp clear bilateral Neuro drowsy MANUELITO on CKD 4- high risk ESRD. Starting HD today. HD tomorrow. Set up for outpatient dialysis. PROCEDURE: Hemodialysis INDICATION: ESRD Procedure: Utilizing the patient's catheter as a vascular access, the patient was initiated on hemodialysis with a Polyflux 170H hollow fiber dialyzer at a QB of 400 ml per minute. The bath utilized was 140 sodium,4 potassium and 35 bicarbonate at a QD of 800ml/min. Dialysis planned for 2.5 hours. UF goal 1L, BP stable. No complications have been encountered. Lasix tonight * Jenn Jackson MD - 11/18/2024 9:01 AM CDT Images from the original note were not included. Your life is our life's work [facility] Internal Medicine Hospitalist Daily Progress Note LOS: 2 days Room/bed: [facility]/ Hospital course summary: 11/16/2024: Yesenia Lemus is a 69 y.o. female with several medical comorbidities including CKD, hyperlipidemia, IDDM, glaucoma, hypertension, GERD, obesity, CAD, status post heart stents, recent hospitalization for fluid overload, requiring thoracentesis as well as intermittent dialysis in [place], etc., who presented to ED from nursing facility with complains of worsening shortness of breath. In ED, the patient was afebrile, hemodynamically stable, and required 3 L supplemental oxygen. Significant labs noted were hemoglobin of 9 with normal MCV, proBNP 23K, troponin trended flat between 57-62, potassium 5.5, BUN 17, creatinine 4.08 with GFR 11, blood glucose 279. Chest x-ray with CHF pattern. The patient was admitted to internal medicine hospitalist service for management of MANUELITO on CKD withfluid overload, with possible component of heart failure. 11/17: GFR 11, potassium 5.8. Received Lokelma. Seen by nephrology, plans noted for starting hemodialysis tomorrow for MANUELITO. Hemodialysis line to be placed by IR tomorrow. Renal ultrasound showed smallbilateral renal cortical cysts, otherwise unremarkable exam. 11/18: Underwent dialysis line placement by IR and was started on hemodialysis. SUBJECTIVE: Interval history: Breathing is stable. No new complaints. OBJECTIVE: Vital signs: Blood pressure (!) 169/98, pulse (!) 102, temperature 97.9 ??F (36.6 ??C), temperature source Temporal, resp. rate 16, height 5' 2.5 (1.588 m), weight 92 kg (202 lb 14.9 oz), SpO2 97%. In last 24 hours, range of BP: (130-169)/(66-104) . Temp (24hrs), Av.9 ??F (36.6 ??C), Min:97.1 ??F (36.2 ??C), Max:98.4 ??F (36.9 ??C) Intake/Output Summary (Last 24 hours) at 11/18/2024900 Last data filed at 11/18/2024 0419 Gross per 24 hour Intake 440 ml Output 1100 ml Net -660 ml Physical exam: General appearance: alert, awake, in no distress, laying comfortably in bed. HEENT: NC in place. Cardiovascular: normal rate, regular rhythm, normal S1, S2, no murmurs appreciated. Respiratory: normal effort; diminished breath sounds at bases. Abdomen: no distention, normal bowel sounds, soft, non-tender. Musculoskeletal: Bilateral pitting pedal edema. Neurologic: oriented to person, place and time; grossly non focal. Psychiatric: intact judgement and insight, normal mood and affect, behavior is normal. Data review: Results for orders placed or performed during the hospital encounter of 11/16/24 (from the past 24 hours) POC GLUCOSE Result Value Ref Range GLUCOSE POC 182 (H) 74 - 99 mg/dL SPECIMEN SOURCE, GLUCOSE POC Capillary POC GLUCOSE Result Value Ref Range GLUCOSE POC 231 (H) 74 - 99 mg/dL SPECIMEN SOURCE, GLUCOSE POC Capillary POC GLUCOSE Result Value Ref Range GLUCOSE POC 265 (H) 74 - 99 mg/dL SPECIMEN SOURCE, GLUCOSE POC Capillary PROTIME-INR Result Value Ref Range PROTIME 15.3 (H) 12.7 - 14.9 Seconds INR 1.1 0.8 - 1.2 POC GLUCOSE Result Value Ref Range GLUCOSE POC 148 (H) 74 - 99 mg/dL SPECIMEN SOURCE, GLUCOSE POC Capillary ASSESSMENT AND PLAN: Primary diagnosis: Acute CHF ([facility]) Other active medical issues also addressed during this admission: Active Hospital Problems Diagnosis MANUELITO (acute kidney injury) Acute CHF ([facility]) Hyperkalemia Mixed hyperlipidemia Type 2 diabetes mellitus with stage 5 chronic kidney disease not on chronic dialysis, with long-term current use of insulin ([facility]) Severe obesity (BMI 35.0-39.9) with comorbidity ([facility]) Fluid overload Chronic anticoagulation CKD (chronic kidney disease) stage 5, GFR less than 15 ml/min ([facility]) Pleural effusion Atherosclerosis of coronary artery without angina pectoris Paroxysmal atrial fibrillation ([facility]) Borderline glaucoma with ocular hypertension Essential hypertension Esophageal reflux Resolved Hospital Problems No resolved problems to display. Acute problems: Fluid overload - Suspect multifactorial due to MANUELITO on CKD and possible component of heart failure. Acute CHF - Manifested as shortness of breath, leg swelling, elevated proBNP, imaging evidence of pulmonary congestion and pleural effusions. - Defer fluids management to nephrology. -Continue low-salt diet with fluid restriction as ordered. - Monitor I/O, daily weight, renal function and electrolytes. - Echo is pending. MANUELITO (acute kidney injury) on CKD - Nephrology following. - dialysis line placed by IR today, and started hemodialysis. - Avoid nephrotoxic medications. - Continue to monitor. Hyperkalemia - Suspect secondary to worsening of CKD. - Received Lokelma. Continue to hold [employer] potassium supplement and ARB. DVT prophylaxis: heparin Code status: Full Code Active chronic problems: Atherosclerosis of coronary artery without angina pectoris Reported history of recent cardiac stent - Continue with aspirin, Plavix and Lipitor. - Will try to obtain medical records from [facility]. Mixed hyperlipidemia - Continue Lipitor. Resume [employer] ezetimibe. Paroxysmal atrial fibrillation Chronic anticoagulation - [employer] medication list shows metoprolol and apixaban. - medical records pending [place] [facility] [place] - Will resume apixaban tomorrow. Essential hypertension - BP running high. Resume amlodipine and hydralazine. - medical records pending from [facility] [place]. Esophageal reflux - Continue protonix. Stage 5 CKD - Defer to nephrology. Type 2 diabetes mellitus - POC glucose checks are stable. HbA1C is pending. - Continue hyperglycemia pathway with basal/bolus insulin regimen and diabetic diet as ordered, with a goal POC glucose checks of 110 - 180. - Avoid hypoglycemia. Severe obesity (BMI 35.0-39.9) with comorbidity - Body mass index is 36.53 kg/m??. - Obesity is associated with significant increase in mortality and many health risks, including type 2 diabetes mellitus, hypertension, dyslipidemia, and coronary heart disease. The higher the body mass index (BMI), the greater the risk of morbidity and mortality. - Once discharged from hospital and acute issues improve, recommend follow up with PCP to begin comprehensive lifestyle intervention, including dietary therapy, exercise and behavior modifications. Incidental findings on imaging studies needing outpatient monitoring or follow up: Small bilateral renal cortical cysts Discussed with patient's at bedside. Anticipated Disposition: Anticipated discharge location: back to DC Timeframe: 11/20/2024 Criteria: clinical improvement, workups completed. Education/DME/Equipment Needs: Outpatient follow up: pcp, nephrology Jenn Jackson MD This documentation was written in part with the use of [employer] speech to text software. Effort has been done to assure accuracy of geneticist. Any errors in spelling, syntax, or meaningshould be interpreted in the context of the broader note. Any obvious errors or omissions should beclarified with the author of the document. * Frederick Perez RN - 11/18/2024 8:54 AM CDT Imaging Nurse Post Procedure Note (left blank = NA) Tunneled Dialysis Catheter placement Dressing (x by appropriate choice): tegaderm: X Bandaid: Percustay: Gauze/tape: Dermabond: Steristrips: Sureseal: Other: CHG Dressing location: right chest Cumulative Dose : plane A: 2 Plane B: (units in mGy) Dose Area Product (DAP) : plane A: 44.27 Plane B: (units in mGy-cm2) All interventional radiology devices/equipment that were utilized during this case were removed intact as reported per charge histotechnologist Sedation time: 19 (min) (may also be documented via sedation tracking in sedation navigator) Report: Called to Dialysis Nicholas CRUMP Tolerated well: yes Other: required 15L/NRB Medications given: Versed 2mg; Fentanyl 100mcg * Jenn Jackson MD - 11/17/2024 9:51 AM CDT Images from the original note were not included. Your life is our life's work [facility] Internal Medicine Hospitalist Daily Progress Note LOS: 1 day Room/bed: 4173/02 Hospital course summary: 11/16/2024: Yesenia Lemus is a 69 y.o. female with several medical comorbidities including CKD, hyperlipidemia, IDDM, glaucoma, hypertension, GERD, obesity, CAD, status post heart stents, recent hospitalization for fluid overload, requiring thoracentesis as well as intermittent dialysis in [place], etc., who presented to ED from nursing facility with complains of worsening shortness of breath. In ED, the patient was afebrile, hemodynamically stable, and required 3 L supplemental oxygen. Significant labs noted were hemoglobin of 9 with normal MCV, proBNP 23K, troponin trended flat between 57-62, potassium 5.5, BUN 17, creatinine 4.08 with GFR 11, blood glucose 279. Chest x-ray with CHF pattern. The patient was admitted to internal medicine hospitalist service for management of MANUELITO on CKD withfluid overload, with possible component of heart failure. 11/17: GFR 11, potassium 5.8. Received Lokelma. Seen by nephrology, plans noted for starting hemodialysis tomorrow for MANUELITO. Hemodialysis line to be placed by IR tomorrow. Renal ultrasound showed smallbilateral renal cortical cysts, otherwise unremarkable exam. SUBJECTIVE: Interval history: Breathing is stable at rest. Oxygen requirement unchanged compared to yesterday. No new complaints. OBJECTIVE: Vital signs: Blood pressure (!) 141/71, pulse 61, temperature 98.1 ??F (36.7 ??C), temperature source Temporal, resp. rate 18, height 5' 2.5 (1.588 m), weight 92 kg (202 lb 14.9 oz), SpO2 94%. In last 24 hours, range of BP: (125-141)/(66-75) . Temp (24hrs), Av.2 ??F (36.8 ??C), Min:97.9 ??F (36.6 ??C), Max:98.6 ??F (37 ??C) Intake/Output Summary (Last 24 hours) at 11/17/2024 0951 Last data filed at 11/17/2024 0800 Gross per 24 hour Intake 740 ml Output -- Net 740 ml Physical exam: General appearance: alert, awake, in no distress, laying comfortably in bed. HEENT: NC in place. Cardiovascular: normal rate, regular rhythm, normal S1, S2, no murmurs appreciated. Respiratory: normal effort; diminished breath sounds at bases. Abdomen: no distention, normal bowel sounds, soft, non-tender. Musculoskeletal: Bilateral pitting pedal edema. Neurologic: oriented to person, place and time; grossly non focal. Psychiatric: intact judgement and insight, normal mood and affect, behavior is normal. Data review: Results for orders placed or performed during the hospital encounter of 11/16/24 (from the past 24 hours) CBC WITH DIFFERENTIAL Result Value Ref Range WBC 10.8 4.8 - 10.8 K/uL RBC 3.15 (L) 4.20 - 5.40 M/uL HEMOGLOBIN 9.0 (L) 12.0 - 16.0 g/dL HEMATOCRIT 27.9 (L) 36.0 - 46.0 % MCV 88.6 84.0 - 103.0 fL MCH 28.6 27.0 - 34.0 pg MCHC 32.3 30.0 - 35.0 g/dL PLATELETS 351 140 - 440 K/uL MPV 10.6 8.9 - 12.8 fL RDW 14.5 11.0 - 14.5 % RDW-STDEV 46.1 37.0 - 54.0 fL NEUTROPHILS 83 (H) 42 - 75 % LYMPHOCYTES 10 (L) 24 - 44 % MONOCYTES 6 2 - 10 % EOSINOPHILS 1 0 - 7 % BASOPHILS 1 0 - 1 % IMMATURE GRANULOCYTES 1 0 - 2 % NEUTROPHIL ABSOLUTE 8.91 (H) 2.00 - 8.00 K/uL LYMPHOCYTE ABSOLUTE 1.03 (L) 1.20 - 4.00 K/uL MONOCYTE ABSOLUTE 0.63 (H) 0.10 - 0.60 K/uL EOSINOPHIL ABSOLUTE 0.07 0.00 - 0.70 K/uL BASOPHILS ABSOLUTE 0.06 0.00 - 0.20 K/uL IMMATURE GRANULOCYTES ABSOLUTE 0.08 0.00 - 0.10 K/uL SMEAR REVIEWED: NA - Not Applicable PROTIME-INR Result Value Ref Range PROTIME 16.2 (H) 12.7 - 14.9 Seconds INR 1.2 0.8 - 1.2 PTT Result Value Ref Range PTT 31.2 24.8 - 37.2 seconds COMPREHENSIVE METABOLIC PANEL Result Value Ref Range SODIUM 142 136 - 145 mmol/L POTASSIUM 5.5 (H) 3.5 - 5.1 mmol/L CHLORIDE 105 98 - 107 mmol/L CO2 23 22 - 29 mmol/L CALCIUM 9.0 8.8 - 10.2 mg/dL BUN 70 (H) 8 - 23 mg/dL CREATININE 4.08 (H) 0.51 - 0.95 mg/dL GLUCOSE 279 (H) 74 - 99 mg/dL TOTAL PROTEIN 7.2 6.4 - 8.3 g/dL ALBUMIN 3.4 (L) 3.5 - 5.2 g/dL BILIRUBIN TOTAL 0.2 0.0 - 1.0 mg/dL ALKALINE PHOSPHATASE 125 (H) 35 - 104 U/L AST 11 10 - 35 U/L ALT 14 <=35 U/L GFR 11 (L) >=60 mL/min/1.73 sq meter ANION GAP 14 9 - 20 mmol/L BRAIN NATRIURETIC PEPTIDE, BNP OR PROBNP Result Value Ref Range PROBNP, N TERMINAL 23,933 (H) 0 - 125 pg/mL TROPONIN BASELINE, 5TH GEN Result Value Ref Range TROPONIN T, BASELINE 5TH GEN 62 (H) <=10 ng/L TROPONIN 2 HR, 5TH GEN Result Value Ref Range TROPONIN T, 2 HR 5TH GEN 61 (H) <=10 ng/L DELTA 2HR TROPONIN T -1 See Interp. TROPONIN 6 HR, 5TH GEN Result Value Ref Range TROPONIN T, 6 HR 5TH GEN 57 (H) <11 ng/L DELTA 6HR TROPONIN T -5 See Interp. CBC WITH DIFFERENTIAL Result Value Ref Range WBC 10.9 (H) 4.8 - 10.8 K/uL RBC 3.04 (L) 4.20 - 5.40 M/uL HEMOGLOBIN 8.7 (L) 12.0 - 16.0 g/dL HEMATOCRIT 27.6 (L) 36.0 - 46.0 % MCV 90.8 84.0 - 103.0 fL MCH 28.6 27.0 - 34.0 pg MCHC 31.5 30.0 - 35.0 g/dL PLATELETS 324 140 - 440 K/uL MPV 11.0 8.9 - 12.8 fL RDW 14.4 11.0 - 14.5 % RDW-STDEV 47.6 37.0 - 54.0 fL NEUTROPHILS 76 (H) 42 - 75 % LYMPHOCYTES 15 (L) 24 - 44 % MONOCYTES 7 2 - 10 % EOSINOPHILS 2 0 - 7 % BASOPHILS 1 0 - 1 % IMMATURE GRANULOCYTES 1 0 - 2 % NEUTROPHIL ABSOLUTE 8.23 (H) 2.00 - 8.00 K/uL LYMPHOCYTE ABSOLUTE 1.58 1.20 - 4.00 K/uL MONOCYTE ABSOLUTE 0.72 (H) 0.10 - 0.60 K/uL EOSINOPHIL ABSOLUTE 0.16 0.00 - 0.70 K/uL BASOPHILS ABSOLUTE 0.07 0.00 - 0.20 K/uL IMMATURE GRANULOCYTES ABSOLUTE 0.09 0.00 - 0.10 K/uL SMEAR REVIEWED: NA - Not Applicable BASIC METABOLIC PANEL Result Value Ref Range SODIUM 143 136 - 145 mmol/L POTASSIUM 5.8 (H) 3.5 - 5.1 mmol/L CHLORIDE 108 (H) 98 - 107 mmol/L CO2 24 22 - 29 mmol/L CALCIUM 9.2 8.8 - 10.2 mg/dL BUN 71 (H) 8 - 23 mg/dL CREATININE 4.09 (H) 0.51 - 0.95 mg/dL GLUCOSE 228 (H) 74 - 99 mg/dL GFR 11 (L) >=60 mL/min/1.73 sq meter ANION GAP 11 9 - 20 mmol/L POC GLUCOSE Result Value Ref Range GLUCOSE POC 201 (H) 74 - 99 mg/dL SPECIMEN SOURCE, GLUCOSE POC Capillary ASSESSMENT AND PLAN: Primary diagnosis: Acute CHF ([facility]) Other active medical issues also addressed during this admission: Active Hospital Problems Diagnosis MANUELITO (acute kidney injury) Acute CHF ([facility]) Hyperkalemia Mixed hyperlipidemia Type 2 diabetes mellitus with stage 5 chronic kidney disease not on chronic dialysis, with long-term current use of insulin ([facility]) Severe obesity (BMI 35.0-39.9) with comorbidity ([facility]) Fluid overload Chronic anticoagulation CKD (chronic kidney disease) stage 5, GFR less than 15 ml/min ([facility]) Pleural effusion Atherosclerosis of coronary artery without angina pectoris Paroxysmal atrial fibrillation ([facility]) Borderline glaucoma with ocular hypertension Essential hypertension Esophageal reflux Resolved Hospital Problems No resolved problems to display. Acute problems: Fluid overload - Suspect multifactorial due to MANUELITO on CKD and possible component of heart failure. Acute CHF - Manifested as shortness of breath, leg swelling, elevated proBNP, imaging evidence of pulmonary congestion and pleural effusions. - Defer fluids management to nephrology. -Continue low-salt diet with fluid restriction as ordered. - Monitor I/O, daily weight, renal function and electrolytes. MANUELITO (acute kidney injury) on CKD - Nephrology consult appreciated. Noted plans for dialysis line placement by IR tomorrow and starting hemodialysis. - Avoid nephrotoxic medications. - Continue to monitor. Hyperkalemia - Suspect secondary to worsening of CKD. - Received Lokelid today. Will hold off on [employer] potassium supplement and ARB. DVT prophylaxis: heparin Code status: Full Code Active chronic problems: Atherosclerosis of coronary artery without angina pectoris Reported history of recent cardiac stent - Continue with aspirin, Plavix and Lipitor. - Will try to obtain medical records from [facility]. Mixed hyperlipidemia - Continue Lipitor. Resume [employer] ezetimibe. Paroxysmal atrial fibrillation Chronic anticoagulation - [employer] medication list shows metoprolol and apixaban. - Will try to obtain medical records. - Will resume apixaban after HD line placement. Essential hypertension - Hold [employer] ARB due to hyperkalemia and MANUELITO. Holding amlodipine for now. [employer] medication list shows metoprolol and Imdur. - Will try to obtain medical records. Esophageal reflux - Continue protonix. Stage 5 CKD - Defer to nephrology. Type 2 diabetes mellitus - POC glucose checks are running high. Will check HbA1C. - Continue hyperglycemia pathway with basal/bolus insulin regimen and diabetic diet as ordered, with a goal POC glucose checks of 110 - 180. - Avoid hypoglycemia. Severe obesity (BMI 35.0-39.9) with comorbidity - Body mass index is 36.53 kg/m??. - Obesity is associated with significant increase in mortality and many health risks, including type 2 diabetes mellitus, hypertension, dyslipidemia, and coronary heart disease. The higher the body mass index (BMI), the greater the risk of morbidity and mortality. - Once discharged from hospital and acute issues improve, recommend follow up with PCP to begin comprehensive lifestyle intervention, including dietary therapy, exercise and behavior modifications. Incidental findings on imaging studies needing outpatient monitoring or follow up: Small bilateral renal cortical cysts Anticipated Disposition: Anticipated discharge location: back to DC Timeframe: 11/20/2024 Criteria: clinical improvement, workups completed. Education/DME/Equipment Needs: Outpatient follow up: pcp, nephrology Jenn Jackson MD This documentation was written in part with the use of [employer] speech to text software. Effort has been done to assure accuracy of geneticist. Any errors in spelling, syntax, or meaningshould be interpreted in the context of the broader note. Any obvious errors or omissions should beclarified with the author of the document. * Aravind Jaffe PHARMACIST - 11/16/2024 11:36 PM CDT RX ANTICOAG MONITORING ORDERS Pharmacy to order, review, and report clinically significant changes in lab per [facility] Anticoagulation Protocol as follows: Orders for dosing changes and follow-up labs will be signed ???Per Protocol?? in Epic. The name ofthe provider signed on the follow-up orders for cosignature will be assigned as follows: Orders placed by members of the [facility] or Hospitalist physician groups: If the original ordering provider is no longer the attending physician for the patient, responsibility for cosignature of the follow-up medication orders and labs will transfer from the original ordering provider to the current attending physician. Orders placed by any other provider: Responsibility for cosignature of the follow-up medication orders and labs will remain with the original ordering provider of the anticoagulant order. Pharmacy will order appropriate labs as indicated by the [facility] Anticoagulation Monitoring policy located on [facility] intranet, unless already ordered. The medications that will be monitored include (but are not limited to): Low molecular weight heparin, heparin, and fondaparinux Direct Thrombin Inhibiors (argatroban, bivalirudin dabigatran lepirudin) Warfarin Direct oral anticoagulants (rivaroxaban, apixaban, edoxaban) Pharmacy will order labs for patients not on a heparin protocol, warfarin protocol, or anticoagulant protocol. Nursing to order labs required as indicated by those protocols. This policy is in compliance with the [facility] National Patient Safety Goal 3E and authorized by the [facility] Pharmacy and Therapeutics Committee. Cosigned by Bryan Ramirez MD at 11/16/2024 11:40 PM CDT documented in this encounter H&P Notes * Bryan Ramirez MD - 11/16/2024 11:03 PM CDT [facility] MD History and physical- date of admission: 11/16/2024 Patient name: Yesenia Lemus Date of : 1955 CSN number: [id number] PCP: No primary care provider on file. Chief Complaint: Chief Complaint Patient presents with Shortness of Breath Pt reports increased in shortness of breath. Pt reports needing dialysis History of present illness: Pt seen and examined at the bedside Yesenia Lemus is a 69 y.o. female who is being admitted for further evaluation of increased shortness of breath. She has a past medical history of CKD, hyperlipidemia, IDDM, glaucoma, hypertension, GERD, obesity. Patient reports multiple recent hospitalization for fluid overload, requiring thoracentesis as well as intermittent dialysis in [place]. [facility]. Patient has an upcoming appointment with nephrology. In the ED, patient is afebrile, hemodynamically stable, alert oriented x 3, saturating well on roomair. Significant labs are leukocytosis of 10.8 with left shift, normocytic anemia with hemoglobin 9, CMP with hyperkalemia of 5.5, elevated renal function with BUN 70 and creatinine 4.0 with unknown recent baseline, glucose 279, normal LFTs except elevated ALP of 125, elevated BNP of 23,933, troponins are 62 and 61, chest x-ray with fluid overload. She is being admitted to medicine hospitalist service for further management. Past medical history: Past Medical History: Diagnosis Date Acute CHF (CMS/HCC) 11/17/2024 Calculus of kidney Depression Fever Frequent urination Gall stones resolved with surgery Headache(784.0) Hearing reduced Hemorrhoids per pt HTN (hypertension) Hyperlipidemia Inflammatory arthritis Joint pain Non-insulin dependent diabetes mellitus accuchecks done occ Pain at rest Pneumonia Skin cancer Temporomandibular joint disorders, unspecified Active chronic medical issues that patient has been followed for as outpatient: Patient Active Problem List Diagnosis Code Essential hypertension I10 Esophageal reflux K21.9 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 H40.059 Open angle with borderline findings, 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 OA (osteoarthritis) of knee, Lt M17.9 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 Conductive hearing loss in right ear H90.11 SNHL (sensorineural hearing loss) H90.5 Cystocele, midline N81.11 DAREN (stress urinary incontinence, female) N39.3 Hyperopia with astigmatism and presbyopia H52.00, H52.209, H52.4 Dry eyes H04.123 MANUELITO (acute kidney injury) N17.9 Acute CHF ([facility]) I50.9 Hyperkalemia E87.5 Mixed hyperlipidemia E78.2 Type 2 diabetes mellitus with stage 5 chronic kidney disease not on chronic dialysis, with long-term current use of insulin ([facility]) E11.22, N18.5, Z79.4 Severe obesity (BMI 35.0-39.9) with comorbidity ([facility]) E66.01 Past surgical history: Past Surgical History: Procedure Laterality Date HX EAR SURGERY Right ear - 2 times HX HYSTERECTOMY 1995 without oopherectomy HX SURGICAL OTHER 05/09/2012 EXAMINATION UNDER ANESTHESIA performed by Terrance Malik DO at [facility] [place] ARTHROSCOPY KNEE DIAGNOSTIC W/WO SYNOVIAL BX SPX 11/07/2012 KNEE ARTHROSCOPY performed by Sourav Taylor MD at [facility] SURGERY [place] AR[place]RS KNE SURG W/MENISCECTOMY MED/LAT W/SHVG 11/07/2012 KNEE MENISCECTOMY ARTHROSCOPIC performed by Sourav Taylor MD at [facility] [place] KNEE ABRASION ARTHRP/IMAGING CENTER MANAGER DRLG/MICROFX 11/07/2012 KNEE CHONDROPLASTY ARTHROSCOPIC performed by Sourav Taylor MD at [facility] [place] CHOLECYSTECTOMY 05/09/2012 CHOLECYSTECTOMY performed by Shalom Vilchis DO at [facility] [place] CHOLECYSTECTOMY 05/09/2012 CHOLECYSTECTOMY performed by Terrance Malik DO at [facility] [place] COLONOSCOPY FLX DX W/COLLJ SPEC WHEN PFRMD 04/18/2012 COLONOSCOPY performed by Michael Rodriges MD at [facility] ENDOSCOPY [place] CYSTOURETHROSCOPY 05/09/2012 CYSTOSCOPY performed by Terrance Malik DO at [facility] [place] EXPLORATORY LAPAROTOMY CELIOTOMY W/WO BIOPSY SPX 05/09/2012 LAPAROTOMY EXPLORATORY performed by Terrance Malik DO at [facility] [place] LAPAROSCOPY ENTEROLYSIS SEPARATE PROCEDURE 05/09/2012 ABDOMINAL LYSIS OF ADHESIONS LAPAROSCOPY performed by Terrance Malik DO at [facility] [place] OMNTC EPIPLOECTOMY RESCJ OMENTUM SPX 05/09/2012 OMENTECTOMY performed by Terrance Malik DO at [facility] MAIN [place]-OOPHORECTOMY COMPL/PRTL UNI/BI SPX 05/09/2012 SALPINGO-OOPHORECTOMY ABDOMINAL APPROACH performed by Terrance Malik DO at [facility] [place] UNLISTED PROCEDURE RECTUM 05/09/2012 PROCTOSCOPY performed by Terrance Malik DO at [facility] MAIN OR Current medications: Prior to Admission Medications Prescriptions Last Dose Informant Patient Reported? Taking? Biotin 1 mg Tablet Yes No Si,000 mcg. Blood-Glucose Meter (OneTouch Verio Flex meter) No No Sig: Use to check BG 3x daily. E11.65 Insulin [place], Disposable, (BD Alexus 2nd Gen Pen Needle) 32 gauge x 5/32 Needle No No Sig: Use to inject insulin four times daily Jardiance 10 mg tablet Yes No Sig: Take 10 mg by mouth. NovoLOG Flexpen U-100 Insulin 100 unit/mL (3 mL) pen syringe Yes No Sig: INJECT THREE TIMES DAILY 15 UNITS SUBCUTANEOUSLY AT LUNCHTIME, 20 UNITS AT SUPPERTIME, 10 UNITS WITH SNACK. MAXIMUM DOSE 75 UNITS PER DAY atorvastatin (LIPITOR) 40 mg tablet No No Sig: Take 1 Tablet (40 mg) by mouth daily. blood sugar diagnostic (OneTouch Verio test strips) Strip No No Sig: Use to check BG 3x daily. E11.65 calcium as carbonate (TITRALAC) 420 mg (168 mg elemental) Tablet, Chewable Yes No Sig: Take by mouth. cetirizine (ZyrTEC) 10 mg tablet Yes No Sig: Take 10 mg by mouth daily. cholecalciferol, Vitamin D3, 125 mcg (5,000 unit) Capsule Yes No Sig: Take 5,000 Units by mouth daily. dulaglutide (TRULICITY) 3 mg/0.5 mL injection No No Sig: Inject 0.5 mL (3 mg) by subcutaneous injection every 7 days. flash glucose scanning reader (FreeStyle Lucila 2 Aiken) [facility] [place] No Sig: Use to check BG. flash glucose sensor (FreeStyle Lucila 2 Sensor) Kit No No Sig: Replace every 14 days. galantamine (RAZADYNE) 4 mg tablet Yes No Sig: Take 4 mg by mouth 2 times daily. hydrOXYzine HCL (ATARAX) 10 mg tablet Yes No Sig: Take 10 mg by mouth 3 times daily as needed for Itching. insulin detemir U-100 (Levemir FlexTouch U-100 Insuln) 100 unit/mL pen syringe No No Sig: INJECT 40 UNITS SUBCUTANEOUSLY TWICE DAILY insulin lispro (HUMALOG KWIKPEN INSULIN SUBCUT) Yes No Sig: Inject by subcutaneous injection. 15 units with lunch 20 units with supper 10 units with snackSQ TID AC plus correction Max 75 units a day irbesartan (AVAPRO) 150 mg tablet Yes No Sig: Take 150 mg by mouth daily. lancets (3dim Lancets) 30 gauge No No Sig: Use to check BG 3x daily. E11.65 latanoprost (XALATAN) 0.005 % solution Yes No Sig: INSTILL 1 DROP INTO EACH EYE EVERY EVENING magnesium oxide 250 mg magnesium Tablet Yes No Sig: Take by mouth. nitrofurantoin (MACROBID) 100 mg capsule No No Sig: Take 1 Capsule (100 mg) by mouth 2 times daily. omega-3 fatty acids-fish oil 300-1,000 mg Capsule Yes No Sig: Take by mouth daily. pantoprazole (PROTONIX) 40 mg Tablet, Delayed Release (E.C.) Yes No Sig: Take 40 mg by mouth daily. potassium chloride (KLOR-CON) 10 mEq Extended Release tablet Yes No Sig: Take 10 mEq by mouth. promethazine-dextromethorphan (PHENERGAN-DM) 6.25-15 mg/5 mL syrup Yes No Sig: TAKE 5 ML BY MOUTH EVERY 6 HOURS NEEDED FOR COUGH FOR 14 DAYS semaglutide (Ozempic) 1 mg/dose (4 mg/3 mL) Pen Injector No No Sig: Inject 1.0 mg weekly. Facility-Administered Medications: None Allergies and intolerances: Allergies Allergen Reactions Sitagliptin Unknown Social history: Social History Socioeconomic History Marital status: Spouse name: Not on file Number of children: Not on file Years of education: Not on file Highest education level: Not on file Occupational History Not on file Tobacco Use Smoking status: Never Smokeless tobacco: Never Substance and Sexual Activity Alcohol use: Yes Drug use: No Sexual activity: Not on file Comment: rarely Other Topics Concern Not on file Social History Narrative Not on file Social Drivers of Health Food Insecurity: Not on file Transportation Needs: Not on file Feeling Safe: Not At Risk (11/16/2024) Feeling Safe Patient has indicated abuse: : No Housing Stability: Not on file Family History: Family History Problem Relation Name Age of Onset Colon Cancer Neg Hx Diabetes Mother Strabismus Neg Hx Amblyopia Neg Hx Detachment/Tears Neg Hx Macular Degen Neg Hx Blindness Neg Hx Ovarian Cancer Neg Hx Breast Cancer Neg Hx Glaucoma Father Hypertension Father Heart Disease Father Cataract Mother Hypertension Mother Arthritis-osteo Mother Heart Disease Mother ROS: Negative except as mentioned in HPI OBJECTIVE: Temp (24hrs), Av.9 ??F (36.6 ??C), Min:97.9 ??F (36.6 ??C), Max:97.9 ??F (36.6 ??C) BP 136/70 Pulse 61 Temp 97.9 ??F (36.6 ??C) (Oral) Resp 18 Ht 5' 2.5 (1.588 m) Wt 92 kg (202 lb 14.9 oz) SpO2 96% BMI 36.53 kg/m?? No intake or output data in the 24 hours ending 11/17/24 0004 Last documented weight: Weight: 92 kg (202 lb 14.9 oz) (11/16/24 1703) EXAM: General: Lying in bed, not in distress Mental exam: Alert oriented x 3 Neurologic: Grossly normal HEENT: Normocephalic, atraumatic Lungs: Normal respiratory effort Heart: Normal rate and regular rhythm Abdomen: Nondistended Extremities: Pitting edema present Lab Data: Recent Labs 11/16/24 1726 WBC 10.8 HGB 9.0* HCT 27.9* PLT 351 Recent Labs 11/16/24 1726 NA 142 K 5.5* CL 105 CO2 23 CA 9.0 BUN 70* CREAT 4.08* GLUCOSE 279* Recent Labs 11/16/24 1726 TOTALPROTEIN 7.2 ALBUMIN 3.4* BILITOTAL 0.2 ALKPHOS 125* AST 11 ALT 14 Recent Labs 11/16/24 1726 INR 1.2 PT 16.2* No results for input(s): CPK , CKMB , TROPONIN in the last 72 hours. Primary diagnosis: Acute CHF (CMS/HCC) Other active medical issues Active Hospital Problems Diagnosis MANUELITO (acute kidney injury) Acute CHF (CMS/HCC) Hyperkalemia Mixed hyperlipidemia Type 2 diabetes mellitus with stage 5 chronic kidney disease not on chronic dialysis, with long-term current use of insulin (CMS/[facility]) Severe obesity (BMI 35.0-39.9) with comorbidity (CMS/[facility]) Borderline glaucoma with ocular hypertension Essential hypertension Esophageal reflux Resolved Hospital Problems No resolved problems to display. ASSESSMENT AND PLAN: Acute on chronic CHF Chest x-ray with CHF exacerbation, elevated BNP of 23,933 Obtain echocardiogram Telemetry monitoring Daily weights, salt and water restriction, I's and O's monitoring Will hold diuresis due to renal function MANUELITO on CKD 4 Hyperkalemia Obtain renal sonogram Nephrology consulted Start on Lokelma Monitor BMP Hyperlipidemia Continue Lipitor IDDM Continue Lantus and sliding scale coverage Glaucoma Continue latanoprost Hypertension Hold losartan GERD Continue Protonix Severe obesity BMI is 36.5 DVT Pharmacologic Prophylaxis: heparin injection 5,000 Units [[id number]] Current diet : DIET SODIUM CONTROL Fluid/day: 1800 ML Fluid,; 2GM Sodium (Low), Code Status: Full Code Admission status -admit to telemetry This patient is admitted as inpatient. I have a reasonable expectation that this patient requires hospital care that crosses 2 midnights supported by complex medical factors documented in the medicalrecord. Bryan Ramirez MD 11/17/2024 12:04 AM documented in this encounter Procedure Notes * Kimmy Biswas RN - 11/19/2024 4:30 PM CDT Renal Replacement Therapy Summary Procedure: Hemodialysis in bed Dialyzer: RVC Access: RIJ Tunneled. Blood Flow: 300 ml/min Procedure Time: 3 hours Blood Volume Processed: 54.5 liters Ultrafiltration Volume: 2500 ml with 500 ml rinse back Anticoagulation: 2000 (ordered) Dry Weight: TBD kg PreWeight: 88.7 kg PostWeight: 86.7 kg Post VS: BP:130/74 Pulse: 63 Temp:96.4 SpO2: 99 Dialyzer Cleared(%): 99% with no clotting Complications: None Report sent to: Bedside RN on 4B * Tae Rosales MD - 11/19/2024 2:14 PM CDTAssociated Order(s): HEMODIALYSIS [facility] - Procedure Note Primary Human Resources Generalist: Dr. Tae Rosales PROCEDURE: Intermittent Hemodialysis INDICATION: acute kidney injury on CKD 4 Procedure: Utilizing the patient's cvc as a vascular access, the patient was initiated on hemodialysis. Dialysis is planned for 2.5 hours. Blood flow of 300 ml per minute and Dialysate flow of 600 mlper minute were prescribed. The bath used was 3 mEq/L potassium, 3 mEq/L calcium, 140 mEq/L sodium and 35 mEq/L bicarbonate. UF goal: 2000 ml, BP stable. Revaclear 300 hollow fiber dialyzer was used.No heparin used for anticoagulation. No complications have been encountered to this point. I was present during dialysis, and was available for the entirety of the dialysis treatment. # Compliant with frequency and duration of dialysis: yes Physical Exam: BP (!) 153/86 (BP Location: Right arm, Patient Position (BP): Supine) Pulse (!) 105 Temp 97.3 ??F (36.3 ??C) (Temporal) Resp 16 Ht 5' 2.5 (1.588 m) Wt 90.3 kg (199 lb 1.2 oz) SpO2 94% BMI 35.83 kg/m?? Normal respiratory effort. NAD. Assesment and Plan: MANUELITO on CKD 4 Will be placed on Sunday treatments. Will see on days of dialysis Will continue to monitor for recovery Working on placement in [facility]. Will give HD day off tomorrow. Plan on next HD Sunday Tae Rosales MD, 11/19/2024 4:24 PM [facility] 11/19/24, 2:14 PM * Darlyn Espinosa RN - 11/18/2024 11:50 AM CDT Renal Replacement Therapy Summary Procedure: Hemodialysis in IR Cot Dialyzer: RVC Access: RIJT Blood Flow: 250-300 ml/min Procedure Time: 2.5 hours Blood Volume Processed: 36.6 liters Ultrafiltration Volume: 1300 ml with 300 ml rinse back Anticoagulation: 0 (ordered) Dry Weight: TBD kg PreWeight: UTD kg PostWeight: UTD kg Post VS: BP:149/102 Pulse: 97 Temp:96.6 SpO2: 98 Dialyzer Cleared(%): 98% with 0 clotting Complications: None Report sent to: Dari CRUMP on 4B documented in this encounter Consult Notes * Sven Lewis - 11/20/2024 11:00 AM CDT Oxygen Saturation Study Lowest SpO2 Heart Rate Range Distance in Feet Dyspnea Pre-Exertion Rest: Room Air 96% 95 Laying in bed none Ambulation Room Air 92% 95-114 100 feet slight Length of time walked in minutes: 6 Number of rest periods (if applicable): 1 Patient response to exercise: Used wheeled walker. Tolerated activity well with one rest. Oxygen required to maintain SpO2 >88% (will require portability): NO Recommendations: Oxygen at REST: room air Oxygen with ACTIVITY: room air Using finger probe This Home Oxygen Evaluation has been performed for an awake and mobile patient and is not an evaluation for Nocturnal Sleep Study oxygen requirements. Unless patient's condition warrants a repeat Home Oxygen Evaluation, this Home Oxygen Evaluation isvalid for 48 hours from date/time performed. Siderails up x 2 Sitting on edge of bed with . Call light within patient reach Cardiopulmonary Rehab Team Zone Phone: [phone] * Tae Rosales MD - 11/17/2024 9:47 AM CDTAssociated Order(s): IP CONSULT TO NEPHROLOGY Nephrology Consult Subjective: Attending Physician: Jenn Jackson MD Reason for consultation: MANUELITO on CKD4 Patient is a 69 y.o. female with a past medical history significant for CKD 4 due to poorly controlled DM, HTN, CHF, CAD here with increasing shortness of breath. [place] and required Hd. Was able to come off, but on arrival here GFR 11, Creatinine 4. Some mild uremic symptoms. Patient with progressive CKD more rapid due to poor DM control. US normal Past Medical History: Diagnosis Date Acute CHF (CMS/HCC) 11/17/2024 Calculus of kidney Depression Fever Frequent urination [...] ANESTHESIA performed by Terrance Malik DO at [facility] [place] ARTHROSCOPY KNEE DIAGNOSTIC W/WO SYNOVIAL BX SPX 11/07/2012 KNEE ARTHROSCOPY performed by Sourav Taylor MD at [facility] [place] KNE SURG W/MENISCECTOMY MED/LAT W/SHVG 11/07/2012 KNEE MENISCECTOMY ARTHROSCOPIC performed by Sourav Taylor MD at [facility] [place] KNEE ABRASION ARTHRP/IMAGING CENTER MANAGER DRLG/MICROFX 11/07/2012 KNEE CHONDROPLASTY ARTHROSCOPIC performed by Sourav Taylor MD at [facility] [place] CHOLECYSTECTOMY 05/09/2012 CHOLECYSTECTOMY performed by Shalom Vilchis DO at [facility] [place] CHOLECYSTECTOM[place] 05/09/2012 CHOLECYSTECTOMY performed by Terrance Malik DO at [facility] [place] COLONOSCOPY FLX DX W/COLLJ SPEC WHEN PFRMD 04/18/2012 COLONOSCOPY performed by Michael Rodriges MD at [facility] ENDOSCOPY [place] CYSTOURETHROSCOPY 05/09/2012 CYSTOSCOPY performed by Terrance Malik DO at [facility] [place] EXPLORATORY LAPAROTOMY CELIOTOMY W/WO BIOPSY SPX 05/09/2012 LAPAROTOMY EXPLORATORY performed by Terrance Malik DO at [facility] [place] LAPAROSCOPY ENTEROLYSIS SEPARATE PROCEDURE 05/09/2012 ABDOMINAL LYSIS OF ADHESIONS LAPAROSCOPY performed by Terrance Malik DO at [facility] [place] OMNTC EPIPLOECTOMY RESCJ OMENTUM SPX 05/09/2012 OMENTECTOMY performed by Terrance Malik DO at [facility] [place] SAL[place]-OOPHORECTOMY COMPL/PRTL UNI/BI SPX 05/09/2012 SALPINGO-OOPHORECTOMY ABDOMINAL APPROACH performed by Terrance Malik DO at [facility] [place] UNLISTED PROCEDURE RECTUM 05/09/2012 PROCTOSCOPY performed by Terrance Malik DO at [facility] OR Medications Prior to Admission Medication Sig Dispense Refill Last Dose/Taking Jardiance 10 mg tablet Take 10 mg by mouth. cetirizine (ZyrTEC) 10 mg tablet Take 10 [...] Inject 1.0 mg weekly. 9 mL 3 Insulin [place], Disposable, (BD Alexus 2nd Gen Pen Needle) 32 gauge x 5/32 Needle Use to inject insulin four times daily 400 Each PRN insulin detemir U-100 (Levemir FlexTouch U-100 Insuln) 100 unit/mL pen syringe INJECT 40 UNITS SUBCUTANEOUSLY TWICE DAILY 45 mL 3 NovoLOG Flexpen U-100 Insulin 100 unit/mL (3 mL) pen syringe INJECT THREE TIMES DAILY 15 UNITS SUBCUTANEOUSLY AT LUNCHTIME, 20 UNITS AT SUPPERTIME, 10 UNITS WITH SNACK. MAXIMUM DOSE 75 UNITS PER DAY irbesartan (AVAPRO) 150 mg tablet Take 150 mg by mouth daily. latanoprost (XALATAN) 0.005 % solution INSTILL 1 DROP INTO EACH EYE EVERY EVENING promethazine-dextromethorphan (PHENERGAN-DM) 6.25-15 mg/5 mL syrup TAKE 5 ML BY MOUTH EVERY 6 HOURSAS NEEDED FOR COUGH FOR 14 DAYS calcium as carbonate (TITRALAC) 420 mg (168 mg elemental) Tablet, Chewable Take by mouth. magnesium oxide 250 mg magnesium Tablet Take by mouth. potassium chloride (KLOR-CON) 10 mEq Extended Release tablet Take 10 mEq by mouth. omega-3 fatty acids-fish oil 300-1,000 mg Capsule Take by mouth daily. cholecalciferol, Vitamin D3, 125 mcg (5,000 unit) Capsule Take 5,000 Units by mouth daily. blood sugar diagnostic (OneTouch Verio test strips) Strip Use to check BG 3x daily. E11.65 300 Strip 3 lancets (OneTouch Delica Lancets) 30 gauge Use to check BG 3x daily. E11.65 300 Each 3 Blood-Glucose Meter (OneTouch Verio Flex meter) Use to check BG 3x daily. E11.65 1 Each 0 flash glucose sensor (FreeStyle Lucila 2 Sensor) Kit Replace every 14 days. 6 Kit 3 flash glucose scanning reader (FreeStyle Lucila 2 [place]) [facility] [place] to check BG. 1 Each 0 dulaglutide (TRULICITY) 3 mg/0.5 mL injection Inject 0.5 mL (3 mg) by subcutaneous injection every 7 days. 6 mL 3 atorvastatin (LIPITOR) 40 mg tablet Take 1 Tablet (40 mg) by mouth daily. 90 Tablet 3 nitrofurantoin (MACROBID) 100 mg capsule Take 1 Capsule (100 mg) by mouth 2 times daily. 28 Capsule0 Biotin 1 mg Tablet 1,000 mcg. insulin lispro (HUMALOG KWIKPEN INSULIN SUBCUT) Inject by subcutaneous injection. 15 units with lunch 20 units with supper 10 units with snack SQ TID AC plus correction Max 75 units a day Allergies Allergen Reactions Sitagliptin Unknown Social History Tobacco Use Smoking status: Never Smokeless tobacco: Never Substance Use Topics Alcohol use: Yes Family History Problem Relation Name Age of Onset Colon Cancer Neg Hx Diabetes Mother Strabismus Neg Hx Amblyopia Neg Hx Detachment/Tears Neg Hx Macular Degen Neg Hx Blindness Neg Hx Ovarian Cancer Neg Hx Breast Cancer Neg Hx Glaucoma Father Hypertension Father Heart Disease Father Cataract Mother Hypertension Mother Arthritis-osteo Mother Heart Disease Mother Review of Systems History obtained from the patient General ROS: + fatigue, tired ENT ROS:no congestion Endocrine ROS: no polyuria or polydipsia Respiratory ROS: + dyspnea Cardiovascular ROS: no chest pain Gastrointestinal ROS: no diarrhea, no abd pain, appetite down some Genito-Urinary ROS: no decrease in UOP Neurological ROS: no seizures Dermatological ROS:no rashes Objective: BP (!) 141/71 (BP Location: Right arm, Patient Position (BP): Sitting) Pulse 61 Temp 98.1 ??F (36.7 ??C) (Temporal) Resp 18 Ht 5' 2.5 (1.588 m) Wt 92 kg (202 lb 14.9 oz) SpO2 94% BMI 36.53 kg/m?? General appearance: alert, in no distress Head: atraumatic, Normocephalic, without obvious abnormality Neck: no JVD Lungs: clear to auscultation bilaterally Heart: normal rate, regular rhythm, normal S1, S2, no murmurs, rubs, clicks or gallops Abdomen: Soft, non-tender. Bowel sounds normal. No masses, no organomegaly. Extremities: no edema, redness or tenderness in the calves or thighs Skin: Skin color, texture, turgor normal. No rashes or lesions Neurologic: Grossly normal Musculoskeletal: no joint tenderness, deformity or swelling Data Review: Results for orders placed or performed during the hospital encounter of 11/16/24 (from the past 24 hours) CBC WITH DIFFERENTIAL Result Value Ref Range WBC 10.8 4.8 - 10.8 K/uL RBC 3.15 (L) 4.20 - 5.40 M/uL HEMOGLOBIN 9.0 (L) 12.0 - 16.0 g/dL HEMATOCRIT 27.9 (L) 36.0 - 46.0 % MCV 88.6 84.0 - 103.0 fL MCH 28.6 27.0 - 34.0 pg MCHC 32.3 30.0 - 35.0 g/dL PLATELETS 351 140 - 440 K/uL MPV 10.6 8.9 - 12.8 fL RDW 14.5 11.0 - 14.5 % RDW-STDEV 46.1 37.0 - 54.0 fL NEUTROPHILS 83 (H) 42 - 75 % LYMPHOCYTES 10 (L) 24 - 44 % MONOCYTES 6 2 - 10 % EOSINOPHILS 1 0 - 7 % BASOPHILS 1 0 - 1 % IMMATURE GRANULOCYTES 1 0 - 2 % NEUTROPHIL ABSOLUTE 8.91 (H) 2.00 - 8.00 K/uL LYMPHOCYTE ABSOLUTE 1.03 (L) 1.20 - 4.00 K/uL MONOCYTE ABSOLUTE 0.63 (H) 0.10 - 0.60 K/uL EOSINOPHIL ABSOLUTE 0.07 0.00 - 0.70 K/uL BASOPHILS ABSOLUTE 0.06 0.00 - 0.20 K/uL IMMATURE GRANULOCYTES ABSOLUTE 0.08 0.00 - 0.10 K/uL SMEAR REVIEWED: NA - Not Applicable PROTIME-INR Result Value Ref Range PROTIME 16.2 (H) 12.7 - 14.9 Seconds INR 1.2 0.8 - 1.2 PTT Result Value Ref Range PTT 31.2 24.8 - 37.2 seconds COMPREHENSIVE METABOLIC PANEL Result Value Ref Range SODIUM 142 136 - 145 mmol/L POTASSIUM 5.5 (H) 3.5 - 5.1 mmol/L CHLORIDE 105 98 - 107 mmol/L CO2 23 22 - 29 mmol/L CALCIUM 9.0 8.8 - 10.2 mg/dL BUN 70 (H) 8 - 23 mg/dL CREATININE 4.08 (H) 0.51 - 0.95 mg/dL GLUCOSE 279 (H) 74 - 99 mg/dL TOTAL PROTEIN 7.2 6.4 - 8.3 g/dL ALBUMIN 3.4 (L) 3.5 - 5.2 g/dL BILIRUBIN TOTAL 0.2 0.0 - 1.0 mg/dL ALKALINE PHOSPHATASE 125 (H) 35 - 104 U/L AST 11 10 - 35 U/L ALT 14 <=35 U/L GFR 11 (L) >=60 mL/min/1.73 sq meter ANION GAP 14 9 - 20 mmol/L BRAIN NATRIURETIC PEPTIDE, BNP OR PROBNP Result Value Ref Range PROBNP, N TERMINAL 23,933 (H) 0 - 125 pg/mL TROPONIN BASELINE, 5TH GEN Result Value Ref Range TROPONIN T, BASELINE 5TH GEN 62 (H) <=10 ng/L TROPONIN 2 HR, 5TH GEN Result Value Ref Range TROPONIN T, 2 HR 5TH GEN 61 (H) <=10 ng/L DELTA 2HR TROPONIN T -1 See Interp. TROPONIN 6 HR, 5TH GEN Result Value Ref Range TROPONIN T, 6 HR 5TH GEN 57 (H) <11 ng/L DELTA 6HR TROPONIN T -5 See Interp. CBC WITH DIFFERENTIAL Result Value Ref Range WBC 10.9 (H) 4.8 - 10.8 K/uL RBC 3.04 (L) 4.20 - 5.40 M/uL HEMOGLOBIN 8.7 (L) 12.0 - 16.0 g/dL HEMATOCRIT 27.6 (L) 36.0 - 46.0 % MCV 90.8 84.0 - 103.0 fL MCH 28.6 27.0 - 34.0 pg MCHC 31.5 30.0 - 35.0 g/dL PLATELETS 324 140 - 440 K/uL MPV 11.0 8.9 - 12.8 fL RDW 14.4 11.0 - 14.5 % RDW-STDEV 47.6 37.0 - 54.0 fL NEUTROPHILS 76 (H) 42 - 75 % LYMPHOCYTES 15 (L) 24 - 44 % MONOCYTES 7 2 - 10 % EOSINOPHILS 2 0 - 7 % BASOPHILS 1 0 - 1 % IMMATURE GRANULOCYTES 1 0 - 2 % NEUTROPHIL ABSOLUTE 8.23 (H) 2.00 - 8.00 K/uL LYMPHOCYTE ABSOLUTE 1.58 1.20 - 4.00 K/uL MONOCYTE ABSOLUTE 0.72 (H) 0.10 - 0.60 K/uL EOSINOPHIL ABSOLUTE 0.16 0.00 - 0.70 K/uL BASOPHILS ABSOLUTE 0.07 0.00 - 0.20 K/uL IMMATURE GRANULOCYTES ABSOLUTE 0.09 0.00 - 0.10 K/uL SMEAR REVIEWED: NA - Not Applicable BASIC METABOLIC PANEL Result Value Ref Range SODIUM 143 136 - 145 mmol/L POTASSIUM 5.8 (H) 3.5 - 5.1 mmol/L CHLORIDE 108 (H) 98 - 107 mmol/L CO2 24 22 - 29 mmol/L CALCIUM 9.2 8.8 - 10.2 mg/dL BUN 71 (H) 8 - 23 mg/dL CREATININE 4.09 (H) 0.51 - 0.95 mg/dL GLUCOSE 228 (H) 74 - 99 mg/dL GFR 11 (L) >=60 mL/min/1.73 sq meter ANION GAP 11 9 - 20 mmol/L POC GLUCOSE Result Value Ref Range GLUCOSE POC 201 (H) 74 - 99 mg/dL SPECIMEN SOURCE, GLUCOSE POC Capillary Assessment/Plan MANUELITO on CKD 4- progressive diabetic nephropathy. Recent HD needs, and will need again with decline in GFR, hyperkalemia. Will plan on starting HD tomorrow with MANUELITO, but higher risk for ESRD. Discussedwith patient and . Plan on line tomorrow, NPO MN. Can arrange for HD in [facility]. 2. Hyperkalemia- will dose lokelma. Low K diet. DM control. 3. CHF- unknown EF. + edema. Will dose lasix today. Can add ACEI/ARB after HD started. 4. HTN- BP controlled. Can add ACEI/ARB once HD started 5. Anemia- patient is [employer]. Does not accept blood products. Will do EDER. Check iron panel documented in this encounter OR Notes * Operative Report - Jose Anderson MD - 11/18/2024 8:51 AM CDT Post Procedure Vascular/Interventional Radiology Note Pre-Radiology Procedure Diagnosis: MANUELITO on CKD4 Technical Procedure: Tunneled HD catheter placement Specimens removed: N/A Estimated Blood Loss: Minimal Findings: Patent RIJ. 19 cm tip to cuff HD catheter ending at the cavoatrial junction. Medications: Conscious sedation was performed. Please see separate nursing documentation for dosages. Post-Radiology Procedure Diagnosis: Same Jose Anderson MD 11/18/24 8:51 AM * Luciana-OP - Jose Anderson MD - 11/18/2024 8:19 AM CDT Pre-Sedation Conscious(Moderate) Record Procedure scheduled: Tunneled HD catheter placement Procedure appropriate history and physical on chart: Y Risks, benefits and options of conscious/moderate sedation discussed with patient (and family when appropriate), previous anesthesia experiences reviewed, informed consent obtained: Y NPO status per policy: Y Airway assessment: Short/fat neck: N Short chin: N Protruding upper teeth: N Neck full ROM: N Mouth opens>2 fingers: Y History of any airway problems (sleep apnea, appliance/equipment used, airway obstruction, other iedrugs, tobacco: Sleep apnea Allergies Allergies Allergen Reactions Sitagliptin Unknown Empagliflozin Rash ASA Classification: ASA 3 - Patient with moderate systemic disease with functional limitations Physical Exam: Lungs: clear to auscultation bilaterally Heart: normal rate and regular rhythm Abdomen: soft, non-tender Mental status: alert and oriented X 3. Pre-Induction Reassessment: No change since pre-sedation assessment. Changes are as follows: Not Applicable The procedure including the purpose and benefits, were discussed in detail with the patient and/or healthcare decision maker. The risks were all discussed in detail to include, but not limited to, bleeding , infection, injury to adjacent structures, inability to complete the procedure, and need forfurther intervention. All Questions were answered, and the decision was made to proceed with the procedure. Jose Anderson MD 11/18/24 8:19 AM documented in this encounter ED Notes * Jesenia Bates RN - 11/16/2024 9:34 PM CDT Pt presents to ED due to shortness of breath. Pt reports shortness of breath started approx 4-5 weeks ago and has gotten progressively worse. Pt has been in and out of hospital since onset. Pt has had several admissions including an ICU admission. Pt has received a few rounds of dialysis but does not have a regular dialysis schedule. Pt expressed not wanting do it dialysis regularly. Pt denies chest pain. Pt states sob is better on oxygen. Pt recently had 3 stents placed, recently diagnosed with COPD, Afib. Pt placed on monitor. * Roxane Frank - 11/16/2024 5:19 PM CDT Triage Protocol EKG [facility] EKG obtained in triage and reviewed by: Dr. Coley at Time: 1714 Patient will: Remain in the waiting room under the triage protocol and will be roomed per usual triage process. Primary triage nurse Jose R RN notified. * Mercedes Thompson NP - 11/16/2024 5:03 PM CDT Pt was evaluated in triage at 5:03 PM with complaint of shortness of breath. Reports history of COPD, CHF, and chronic kidney disease. She states she was in the ER at [place] yesterday and treated for shortness of breath and has recently been placed on oxygen. She did have temporary dialysis recently during a inpatient hospitalization where she was in acute renal failure but is not on regulardialysis.. She describes some chest tightness, cough, edema. Denies fever. Family also reports she has had thoracentesis previously. She is on diuretics. Significant medical history includes COPD, CHF, chronic kidney disease, atrial fibrillation on chronic anticoagulation IV, Labs, Chest X-Ray, and EKG were ordered at this time. Vitals: Vitals: 11/16/24 1703 BP: 127/75 BP Location: Right arm Patient Position (BP): Sitting Pulse: 64 Resp: 18 Temp: 97.9 ??F (36.6 ??C) TempSrc: Oral SpO2: 97% Weight: 96.2 kg (212 lb) Height: 5' 2.5 (1.588 m) Pain Scale: 4 Physical Exam: General appearance: Alert, in no distress Neck: supple, trachea midline Lungs: normal respiratory effort Extremities: moves all extremities Skin: pink, warm, dry Neurologic: Grossly normal Discussed patient's pain and/or nausea management. Offered oral medication per triage protocols. Patient desires oral medication offered. A medical screening exam was initiated in our triage area tailored to the patient's chief complaint. Focused diagnostics and therapies have been initiated, will continue and expand as appropriate to help identify any life or limb threatening conditions while awaiting an exam room in the main area of the ED. Continued care, evaluation and management of this patient will be performed throughout their stay. The patient's evaluation and anticipated ongoing care plan was discussed in detail with them to make sure they are aware of what to expect during their stay. Portions of this documentation may have been created by an artificial geneticist software. Effort has been done to assure accuracy of geneticist. Any obvious errors or omissions should be clarified with the author of the document. Mercedes Thompson NP * Morales Ball DO - 11/16/2024 4:55 PM CDT HISTORY OF PRESENT ILLNESS History of Present Illness This is a 69-year-old female with a history of COPD, CHF, and chronic kidney disease presenting with shortness of breath. She was seen at the ER in [place] yesterday and treated for shortness of breath and has recently been placed on oxygen. She describes some chest tightness, cough, and edema. The patient reports experiencing difficulties for the past 4 to 5 weeks, necessitating frequent visits to the [facility]. She was diagnosed with atrial fibrillation and COPD. Approximately 1 liter of fluid was drained from each side of her chest cavity. She was also found to have blockages in her heart, leading to the placement of 3 stents. She was [facility] to regain strength about 3 weeks ago. However, after a day and a half, she was readmitted to the ER and subsequently transferred to the ICU where temporary ports were placed in her neck for dialysis. She responded well to this treatment and was again discharged to the prison. After 2to 3 days, she was readmitted to the ER last night. She believes that a better diet could have prevented these complications. She has been on diuretics prescribed by her primary care physician for several months, but the dosage was reduced due to frequent vomiting. She reports no current breathing difficulties, although she did experience some earlier. She is scheduled [facility] this coming Sunday. She has not seen any other healthcare providers apart from those in the ER and ICU. She reports feeling unsteady on her feet and cold. She had a chest x-ray last night and another one this morning. She has not been using oxygen at home, but has been on it since her hospital admission about 4 to 5 weeks ago. She has been hospitalized 3 times and admitted to the prison twice. She is currently producing urine and was given a medication in the ER today. She does not want to undergo dialysis or have the ports reinserted. She was able to adhere to her diet during her last hospital stay, but found it difficult to do so in the prison. PAST MEDICAL HISTORY REVIEWED MEDICAL: Patient has a past medical history of Acute CHF (CMS/HCC) (11/17/2024), Calculus of kidney, Depression, Fever, Frequent urination, Gall stones, Headache(784.0), Hearing reduced, Hemorrhoids, HTN (hypertension), Hyperlipidemia, Inflammatory arthritis, Joint pain, Non-insulin dependent diabetes mellitus, Pain at rest, Pneumonia, Skin cancer, and Temporomandibular joint disorders, unspecified. SURGICAL: Patient has a past surgical history that includes pr unlisted procedure rectum (05/09/2012); pr salpingo-oophorectomy compl/prtl uni/bi spx (05/09/2012); pr arthrs knee abrasion arthrp/export sales assistant drlg/microfx(11/07/2012); pr arthrs kne surg w/meniscectomy med/lat w/shvg (11/07/2012); pr arthroscopy knee diagnostic w/wo synovial bx spx (11/07/2012); pr cholecystectomy (05/09/2012); pr omntc epiploectomy rescjomentum spx (05/09/2012); pr cholecystectomy (05/09/2012); surgical other (05/09/2012); pr exploratorylaparotomy celiotomy w/wo biopsy spx (05/09/2012); pr colonoscopy flx dx w/collj spec when pfrmd (04/18/2012); ear surgery; hysterectomy (1995); pr laparoscopy enterolysis separate procedure (05/09/2012); and pr cystourethroscopy (05/09/2012). ALLERGIES Sitagliptin and Empagliflozin PHYSICAL EXAM INITIAL VS BP: 127/75 (11/16/241702), Heart Rate: 64 bpm (11/16/241702), Resp: 18 (11/16/241702), Pulse: 64(11/16/241702), Temp: 97.9 ??F (36.6 ??C) (11/16/241702), Temp src: Oral (11/16/241702), SpO2: 97 % (11/16/241702), Height: 5' 2.5 (158.8 cm) (11/16/241702), Weight: 92 kg (202 lb 14.9 oz) (11/16/241702), BMI (Calculated): (!) 36.52 (11/16/241702) No LMP recorded. Patient has had a hysterectomy. Blood pressure (!) 144/89, pulse (!) 106, temperature 98.4 ??F (36.9 ??C), temperature source Temporal, resp. rate 17, height 5' 2.5 (1.588 m), weight 92 kg (202 lb 14.9 oz), SpO2 95%. Physical Exam Vitals and nursing note reviewed. Constitutional: Appearance: Normal appearance. HENT: Head: Normocephalic and atraumatic. Nose: Nose normal. Mouth/Throat: Mouth: Mucous membranes are moist. Pharynx: Oropharynx is clear. Eyes: Extraocular Movements: Extraocular movements intact. Conjunctiva/sclera: Conjunctivae normal. Pupils: Pupils are equal, round, and reactive to light. Cardiovascular: Rate and Rhythm: Normal rate and regular rhythm. Pulses: Normal pulses. Heart sounds: Normal heart sounds. Pulmonary: Effort: Pulmonary effort is normal. Breath sounds: Normal breath sounds. Abdominal: General: Bowel sounds are normal. Palpations: Abdomen is soft. Musculoskeletal: General: Normal range of motion. Cervical back: Normal range of motion and neck supple. Skin: General: Skin is warm and dry. Neurological: General: No focal deficit present. Mental Status: She is alert and oriented to person, place, and time. Psychiatric: Mood and Affect: Mood normal. Behavior: Behavior normal. Physical Exam Constitutional: No acute distress Neck: No jugular venous distention Cardiovascular: Regular rate and rhythm, no murmurs, not in atrial fibrillation Respiratory: Bilateral breath sounds present, no wheezing or crackles Neurological: No dizziness reported, no unsteadiness observed DIAGNOSTICS LAB: CBC WITH DIFFERENTIAL - Abnormal Result Value WBC 10.8 RBC 3.15 (*) HEMOGLOBIN 9.0 (*) HEMATOCRIT 27.9 (*) MCV 88.6 MCH 28.6 MCHC 32.3 PLATELETS 351 MPV 10.6 RDW 14.5 RDW-STDEV 46.1 NEUTROPHILS 83 (*) LYMPHOCYTES 10 (*) MONOCYTES 6 EOSINOPHILS 1 BASOPHILS 1 IMMATURE GRANULOCYTES 1 NEUTROPHIL ABSOLUTE 8.91 (*) LYMPHOCYTE ABSOLUTE 1.03 (*) MONOCYTE ABSOLUTE 0.63 (*) EOSINOPHIL ABSOLUTE 0.07 BASOPHILS ABSOLUTE 0.06 IMMATURE GRANULOCYTES ABSOLUTE 0.08 SMEAR REVIEWED: NA - Not Applicable PROTIME-INR - Abnormal PROTIME 16.2 (*) INR 1.2 COMPREHENSIVE METABOLIC PANEL - Abnormal SODIUM 142 POTASSIUM 5.5 (*) CHLORIDE 105 CO2 23 CALCIUM 9.0 BUN 70 (*) CREATININE 4.08 (*) GLUCOSE 279 (*) TOTAL PROTEIN 7.2 ALBUMIN 3.4 (*) BILIRUBIN TOTAL 0.2 ALKALINE PHOSPHATASE 125 (*) AST 11 ALT 14 GFR 11 (*) ANION GAP 14 BRAIN NATRIURETIC PEPTIDE, BNP OR PROBNP - Abnormal PROBNP, N TERMINAL 23,933 (*) TROPONIN BASELINE, 5TH GEN - Abnormal TROPONIN T, BASELINE 5TH GEN 62 (*) TROPONIN 2 HR, 5TH GEN - Abnormal TROPONIN T, 2 HR 5TH GEN 61 (*) DELTA 2HR TROPONIN T -1 PTT - Normal PTT 31.2 POC GLUCOSE POC GLUCOSE POC GLUCOSE POC GLUCOSE RADIOLOGY: XR CHEST PA OR AP 1 VW ED Interpretation ERP wet read shows bilateral effusions and pulmonary vascular congestion in the lower aspect of thelungs. Radiologist Impression IMPRESSION: See below. Exam: XR CHEST PA OR AP 1 VW Date/Time of Exam: 11/16/2024 6:09 PM Reason For Exam: Shortness of Breath SOB. Diagnosis: See Reason for Exam. Findings: Comparison: 04/29/12 Heart size normal. Small pleural fluid collections. There is airspace opacities are nonspecific. Heart borders are partially obscured with mild central vascular congestion. No pneumothorax. No acute osseous findings. IMPRESSION: 1. Bilateral pleural fluid collections with vascular congestion suggesting CHF exacerbation. Bibasilar airspace opacities represent edema or atelectasis. EKG: Twelve-lead ECG obtained 11/16/2024 at 1712 hrs. and interpreted by me at 2149 shows normal sinus rhythm with first-degree AV block. Normal axis. No evidence of intraventricular conduction delay.Adequate R wave progression across precordial leads. Nonspecific ST findings. No ectopic beats. No comparison. PROCEDURES Procedures MEDICAL DECISION MAKING AND PLAN OF CARE Assessment & Plan Initial Assessment: 69-year-old female with shortness of breath, chest tightness, cough, and edema. History of COPD, CHF, CKD, and recent ER visit for shortness of breath. Recently placed on oxygen. Differential Diagnosis: Differential diagnosis includes, but is not limited to, pulmonary disorders such as airway obstruction, pulmonary embolism, noncardiogenic edema, anaphylaxis, acute exacerbation of reactive airway disease; cardiac disorder such as ACS, CHF, Valve disorder, dysrhythmia, tamponade; as well as DKA, toxic exposure such as asa or CO, and severe sepsis. Other less emergent considerations in today's Emergency Department differential include but are not limited to pneumonia, bronchitis, aspiration, RAD, cor pulmonale, electrolyte problems, metabolic disorders, fever, chest trauma, psychgenic origin. By virtue of history and physical, some of these diagnoses can be excluded. - Congestive heart failure; symptoms of shortness of breath, chest tightness, cough, and edema; admit for comprehensive assessment and treatment. - Chronic obstructive pulmonary disease; history of COPD, recent exacerbations, on oxygen for past 4-5 weeks; continued monitoring and management. - Chronic kidney disease; creatinine increased to 4, worsening kidney function, patient desires to avoid dialysis; admit for further evaluation and management, discuss dialysis necessity with wafer batter mixer. - Atrial fibrillation; history of AFib, not currently in AFib; continued cardiac monitoring. A complete blood count to evaluate for leukocytosis, leukopenia, anemia, thrombocytopenia, thrombocytosis; a comprensive metabolic profile to evaluate for hyponatremia, hypernatremia, hypokalemia, hyperkalemia, hypocalcemia, hypercalcemia, uremia, renal failure, liver enzyme abnormality; a urinalysis to evaluate for pyuria suggesting infection, specific gravity and ketones to assess hydration, glucosuria. Additionally, troponins, BNP, EKG were evaluated for ACS. A chest x-ray to evaluate for pneumonia, pneumothorax, hemothorax, new onset cardiomegaly to suspect pericardial effusion, intraabdominal free air, and widened mediastinum to suggest dissection. Final Assessment: Admitted for comprehensive assessment and treatment of CHF, COPD, CKD, and monitoring of AFib. Discuss dialysis necessity with wafer batter mixer. Clinical Impression: - Congestive heart failure - Chronic obstructive pulmonary disease - Chronic kidney disease - Atrial fibrillation history Disposition: - Discharge/Admission/Transfer/Sign Out: Admission; hospital; for comprehensive assessment and treatment. Medical Decision Making Amount and/or Complexity of Data Reviewed Labs: ordered. Radiology: ordered and independent interpretation performed. ECG/medicine tests: ordered. Risk Prescription drug management. Decision regarding hospitalization. Clinical Scoring & Consults Medications Administered During the ED Stay from 11/16/2024 1655 to 11/17/2024 0026 Date/Time Order Dose Route Action 11/16/2024 2329 CDT losartan (COZAAR) tablet 50 mg -- Oral Held by Provider 11/16/2024 2330 CDT insulin detemir U-100 (LEVEMIR) injection 40 Units 40 Units subCUT Not Given 11/16/2024 2330 CDT latanoprost (XALATAN) 0.005 % ophthalmic solution 1 Drop 1 Drop Both Eyes Not Given 11/17/2024 0000 CDT insulin glargine-yfgn injection 40 Units 40 Units subCUT Not Given Current Discharge Medication List CONTINUE these medications which have NOT CHANGED Details amLODIPine (NORVASC) 5 mg tablet Take 5 mg by mouth daily. apixaban (ELIQUIS) 5 mg tablet Take 2.5 mg by mouth every 12 hours. clopidogreL (PLAVIX) 75 mg Tablet Take 75 mg by mouth daily. ezetimibe (ZETIA) 10 mg tablet Take 10 mg by mouth daily. hydrALAZINE (APRESOLINE) 10 mg tablet Take 10 mg by mouth every 8 hours. insulin glargine (LANTUS) 100 unit/mL pen syringe Inject 25 Units by subcutaneous injection daily at bedtime. isosorbide mononitrate (IMDUR) 30 mg Extended Release 24 hour tablet Take 30 mg by mouth daily in the morning. metoprolol tartrate (LOPRESSOR) 25 mg tablet Take 25 mg by mouth every 12 hours. irbesartan-hydroCHLOROthiazide (AVALIDE) 150-12.5 mg tablet Take 1 Tablet by mouth daily. cetirizine (ZyrTEC) 10 mg tablet Take 10 [...] mL) Pen Injector Inject 1.0 mg weekly. Qty: 9 mL, Refills: 3 Insulin [place], Disposable, (BD Alexus 2nd Gen Pen Needle) 32 gauge x 5/32 Needle Use to inject insulin four times daily Qty: 400 Each, Refills: PRN insulin detemir U-100 (Levemir FlexTouch U-100 Insuln) 100 unit/mL pen syringe INJECT 40 UNITS SUBCUTANEOUSLY TWICE DAILY Qty: 45 mL, Refills: 3 NovoLOG Flexpen U-100 Insulin 100 unit/mL (3 mL) pen syringe INJECT THREE TIMES DAILY 15 UNITS SUBCUTANEOUSLY AT LUNCHTIME, 20 UNITS AT SUPPERTIME, 10 UNITS WITH SNACK. MAXIMUM DOSE 75 UNITS PER DAY irbesartan (AVAPRO) 150 mg tablet Take 150 mg by mouth daily. latanoprost (XALATAN) 0.005 % solution INSTILL 1 DROP INTO EACH EYE EVERY EVENING promethazine-dextromethorphan (PHENERGAN-DM) 6.25-15 mg/5 mL syrup TAKE 5 ML BY MOUTH EVERY 6 HOURSAS NEEDED FOR COUGH FOR 14 DAYS calcium as carbonate (TITRALAC) 420 mg (168 mg elemental) Tablet, Chewable Take by mouth. magnesium oxide 250 mg magnesium Tablet Take by mouth. potassium chloride (KLOR-CON) 10 mEq Extended Release tablet Take 10 mEq by mouth. omega-3 fatty acids-fish oil 300-1,000 mg Capsule Take by mouth daily. cholecalciferol, Vitamin D3, 125 mcg (5,000 unit) Capsule Take 5,000 Units by mouth daily. blood sugar diagnostic (Magma Flooringuch Verio test strips) Strip Use to check BG 3x daily. E11.65 Qty: 300 Strip, Refills: 3 lancets (Startup VillageTouch Delica Lancets) 30 gauge Use to check BG 3x daily. E11.65 Qty: 300 Each, Refills: 3 Blood-Glucose Meter (OneTouch Verio Flex meter) Use to check BG 3x daily. E11.65 Qty: 1 Each, Refills: 0 flash glucose sensor (FreeStyle Lucila 2 Sensor) Kit Replace every 14 days. Qty: 6 Kit, Refills: 3 flash glucose scanning reader (FreeStyle Lucila 2 Aiken) Misc Use to check BG. Qty: 1 Each, Refills: 0 dulaglutide (TRULICITY) 3 mg/0.5 mL injection Inject 0.5 mL (3 mg) by subcutaneous injection every 7 days. Qty: 6 mL, Refills: 3 atorvastatin (LIPITOR) 40 mg tablet Take 1 Tablet (40 mg) by mouth daily. Qty: 90 Tablet, Refills: 3 Biotin 1 mg Tablet 1,000 mcg. insulin lispro (HUMALOG KWIKPEN INSULIN SUBCUT) Inject by subcutaneous injection. 15 units with lunch 20 units with supper 10 units with snack SQ TID AC plus correction Max 75 units a day LAST VS BP: (!) 144/89 (11/17/24 1445), Heart Rate: (!) 59 bpm (11/17/24 0444), Resp: 17 (11/17/24 1445), Pulse: (!) 106 (11/17/241444), Temp: 98.4 ??F (36.9 ??C) (11/17/241444), Temp src: Temporal (11/17/241444), SpO2: 95 % (11/17/241444) CLINICAL IMPRESSION Diagnoses Diagnosis Comment Added By Time Added Acute on chronic congestive heart failure, unspecified heart failure type (CMS/[facility]) [I50.9] Morales Ball DO 11/16/2024 10:23 PM Acute respiratory failure, unspecified whether with hypoxia or hypercapnia (CMS/[facility]) [J96.00] Morales Ball DO 11/16/2024 10:23 PM MANUELITO (acute kidney injury) [N17.9] Morales Ball DO 11/16/2024 10:23 PM DISPOSITION, EDUCATION AND MEDICATION RECONCILIATION Medications reconciled. See after visit summary for patient education on discharged patients. ED Disposition ED Disposition Admit Condition Stable User Morales Ball DO Date/Time Sun Nov 16, 2024 10:35 PM Comment -- documented in this encounter Miscellaneous Notes * Care Plan - Che Bear, JUAN JOSE - 11/20/2024 3:45 AM CDT [facility] Day 2 - Current (INTERDIS PW: HYPERGLYCEMIA, ADULT) Metabolic: Maintain glucose between 110-180 mg/dL when receiving subcutaneous insulin and between 110-160 mg/dL when receiving IV insulin. Outcome: Met Nutrition Management: Patient maintaining appropriate carbohydrate selections with each meal. Outcome: Met Symptom Management: Patient denies signs and symptoms of hyperglycemic or hypoglycemic events Outcome: Met Problem: Safety/Fall Goal: Safety/Fall: Absence of fall, injury, harm during hospitalization Description: Absence of/reduce fall risk during current hospitalization related to: 1. History of falls 2. Mobility deficits 3. Medications 4. Mental status/LOC/awareness 5. Toileting needs 6. Volume/electrolyte status 7. Communication/sensory 8. Behavior Outcome: Shift Focus Problem: Discharge Planning Goal: Identify discharge needs upon admission and through discharge Description: Outcome: Shift Focus Problem: Respiratory Goal: Achieve optimal respiratory function by discharge and/or maintain baseline function Outcome: Shift Focus Problem: Cardiovascular Goal: Achieve optimal cardiovascular function by discharge or maintain baseline function Outcome: Shift Focus Shift Summary Telemetry was initiated to monitor cardiac function. Medications including metoprolol tartrate, apixaban, and galantamine were administered in [facility]. Blood glucose levels were recorded as high during the shift. The patient expressed a desire to return home, indicating discharge planning discussions. Overall, vital signs remained stable, and cardiac rhythm improved to normal sinus rhythm. Safety/Fall: Absence of fall, injury, harm during hospitalization: Safety checks were consistently completed throughout the shift, and the fall risk was agreed upon each time. Identify discharge needs upon admission and through discharge: The plan of care was discussed with the patient, who expressed a goal to return home. Achieve optimal respiratory function by discharge and/or maintain baseline function: Respiratory vitals remained stable with oxygen therapy maintained at 2 L/min via nasal cannula. Achieve optimal cardiovascular function by discharge or maintain baseline function: Blood pressure and pulse remained stable, and a transition from atrial fibrillation to normal sinus rhythm was noted. * Care Plan - Keira Barajas LCSW - 11/19/2024 8:15 AM CDT 11:45am Have spoken with Titi, with [facility]. Pt has been scheduled for dialysis with [facility], 7:45am --. Pt is asking for a later scheduled time; request made. Scheduled start time is Sunday. Roping Tender Discharge Planning Progress Note: Dialysis referral was faxed yesterday to [facility] with request for [facility]. CM following. Expected Discharge Date Nov 20, 2024 Plan Discharge To: Home with family assist (11/18/24 1503) Plan Discharge To - Alternate: Home Health Services (11/18/24 1503) Referrals Status: Preferred Pharmacy: [id number] - [place], [place] - [address] [facility] - [place], [place] - [address] Patient / Family Communications met with pt and Resources Provided choice of dialysis clinics in area Transportation Plan Follow Up Appointments Scheduled Keira Barajas LCSW * Care Plan - Keira Barajas LCSW - 11/18/2024 3:54 PM CDT Roping Tender Discharge Planning Progress Note: Referral for out pt dialysis received and process started. Pt and prefer [facility] in [place]; [facility] afternoons Expected Discharge Date Nov 20, 2024 Plan Discharge To: Home with family assist (11/18/24 1503) Plan Discharge To - Alternate: Home Health Services (11/18/24 1503) Referrals Status: Preferred Pharmacy: [facility] - [facility] [address] HOME [address] Patient / Family Communications Resources Provided Transportation Plan Follow Up Appointments Scheduled Keira Barajas LCSW * Care Plan - Keira Barajas LCSW - 11/18/2024 3:04 PM CDT Care Management Initial Assessment Initial Discharge Planning Assessment completed. Discussed Care Management's role and Discharge planning. Plan Discharge To: Home with family assist Plan Discharge To - Alternate: Home Health Services Does the patient have family and/or a caregiver that is willing, able and available to assist if needed? Yes - Name/Relation:dragan Rogers Comments: Pt has good family support. Patient Discharge Planning Goal: get dialysis set up and go home Patient will potentially discharge to a SNF/NH? No Care Management visited with: patient via in person. Prior to admission, patient resides at: own home. Patient resides in a 21/2 story home with 3 stairs to enter.Having ramp placed Patient's bedroom and bathroom are located on the main ground floor. Prior to admission, living arrangements: spouse. Prior to admission, patient's functional level:requires assistance; uses rollator for mobility; needs assistance with iADLs: meal preparation, transportation, shopping, running errands, medication management, housekeeping, and managing finances Community Ambulator: yes Prior to admission, the patient has the following DME? Yes rollator Services in the home/community: none Serviced by N/A Receives hemodialysis? No Emergency contact(s): Extended Emergency Contact Information Primary Emergency Contact: Ken Lemus Address: [address] [place] [id number] [facility] Mobile Relation: Spouse Prescription coverage: yes Preferred Pharmacy verified: [facility] - [place], [place] - [address] [facility] - [address] Insurance coverage verified: Payor: [facility] MEDICARE ADVANTAGE / Plan: [employer] MEDICARE HMO / Product Type: HMO / Secondary Insurance:N/A Medicaid Status: NA Has VA Benefits: no Employment Status: retired PCP verified as: No primary care provider on file. Patient has had a stay at an acute care hospital in the last 30 days. Recent Falls?: Last Known Fall: Within the last month Plan for transportation at discharge: Care Management contact information provided. Care Management will continue to follow and assist asneeded. * Care Plan - Fabi May GN - 11/18/2024 4:23 AM CDT Shift Summary Oxygen therapy was initiated with a nasal cannula to support respiratory function. Apical pulse remained irregular throughout the shift. Blood pressure was noted to be abnormal at the end of the shift. The patient achieved independent ambulation and positioning by the end of the shift. Overall, the patient maintained stable respiratory and cardiovascular function with mild musculoskeletal weakness. Verbalizes/displays acceptable comfort level or baseline comfort level: No pain or discomfort was reported, and the patient was sleeping comfortably during the shift. Achieve optimal respiratory function by discharge and/or maintain baseline function: Respiratory function remained stable with diminished breath sounds and dyspnea on exertion, while oxygen therapy continued via nasal cannula. Achieve optimal cardiovascular function by discharge or maintain baseline function: Blood pressure increased slightly, and apical pulse remained irregular, but normal sinus rhythm was maintained. Achieve optimal genitourinary and renal function by discharge or maintain baseline function: Urine characteristics were clear and yellow, with no changes in genitourinary function noted. Achieve optimal musculoskeletal function by discharge or maintain baseline function: The patient demonstrated independence in ambulation and positioning, with mild generalized muscle weakness persisting. * Gen AI ED Handoff - GENERATIVE AI HANDOFF NOTE - 11/17/2024 12:19 AM CDT SITUATION: Patient ( ) is a 69-year-old female who has been in the ER for 7 hours. She came to the ER due to shortness of breath. The patient's most recent care team on record included: Radha Hodge; Jesenia Bates. BACKGROUND: This patient has allergies to Sitagliptin. ASSESSMENT: Patient's most recent vitals recorded in flowsheets were as follows: BP: 136/67 T: 97.9 F RR: 18 SPO2: 97% HR: 61 WT: 202.9 LBS BMI: 36.53 Most recent Glucose Value: 279. Completed: 2024-11-16 18:19. Last recorded oxygen source was nasal cannula. The patient, Yesenia Lemus, presents with shortness of breath and has a history of COPD, CHF, CKD, hyperlipidemia, IDDM, glaucoma, hypertension, GERD, and severe obesity. She has experienced multiple recent hospitalizations for fluid overload, requiring thoracentesis and intermittent dialysis. She has pitting edema and is currently producing urine. The patient has a history of atrial fibrillation and has had 3 stents placed due to heart blockages. She reports feeling unsteady on her feet and cold. Labs show leukocytosis, normocytic anemia, hyperkalemia, elevated renal function, elevated BNP, and elevated troponins. The patient is on long-term insulin use and has expressed a desire to avoid regular dialysis. RECOMMENDATION: Admit to telemetry for comprehensive assessment and treatment of CHF, COPD, CKD, and monitoring of AFib. Obtain echocardiogram and renal sonogram. Telemetry monitoring, daily weights, salt and water restriction, and monitoring of I's and O's. Hold diuresis due to renal function. Start on Lokelma for hyperkalemia and continue Lipitor for hyperlipidemia. Continue Lantus and sliding scale coverage for IDDM. Continue latanoprost for glaucoma and Protonix for GERD. Hold losartan for hypertension. DVT prophylaxis with heparin injection. Consult nephrology to discuss dialysis necessity. Pharmacy to monitor anticoagulation per protocol. Current diet: sodium control with fluid restriction of 1800 ML/day and 2GM sodium (low). *This summary was created by generative AI. The responses are meant to enhance, not replace normal workflow. Please contact the ED nurse for any additional information.* * ED Bed Hold Comment Note - Kait Chew RN - 11/16/2024 9:27 PM CDT Bed: 10 Expected date: 11/16/24 Expected time: 9:12 PM Means of arrival: Comments: Triage documented in this encounter Plan of Treatment Upcoming Encounters Date Type Department Care Team (Late st Contact Info) Description 03/26/2025 1:20 PM CRITICAL CARE NURSE Office Visit [facility] Endocrinology [facility] [address] [facility] [address] [place] [phone] Carrie Osuna PA [address] [place] [phone] Scheduled Referrals Name Type Priority Associated Diagnoses Orde r Schedule AMB REFERRAL TO FAMILY PRACTICE Outpatient Referral Routine Acute on chronic congestive heart failure, unspecified heart failure type (CMS/HCC) Ordered: 11/20/2024 documented as of this encounter Procedures Procedure Name Priority Date/Time Associated Diagnosis Comments TELEMETRY REPORT 11/21/2024 2:44 AM CDT POC GLUCOSE Routine 11/20/2024 12:10 PM CDT HOME O2 EVAL (DESATURATION SCREEN) Pending Discharge 11/20/2024 10:21 AM CDT HOME O2 EVAL (DESATURATION SCREEN) Routine 11/20/2024 9:59 AM CDT POC GLUCOSE Routine 11/20/2024 7:33 AM CDT CBC WITH DIFFERENTIAL Routine 11/20/2024 5:18 AM CDT RENAL FUNCTION PANEL Routine 11/20/2024 5:18 AM CDT POC GLUCOSE Routine 11/19/2024 9:09 PM CDT POC GLUCOSE Routine 11/19/2024 5:20 PM CDT HEMODIALYSIS Routine 11/19/2024 2:14 PM CDT POC GLUCOSE Routine 11/19/2024 10:54 AM CDT ECHO COMPLETE Routine 11/19/2024 9:45 AM CDT POC GLUCOSE Routine 11/19/2024 7:49 AM CDT POC GLUCOSE Routine 11/19/2024 7:06 AM CDT POC GLUCOSE Routine 11/19/2024 6:57 AM CDT CBC WITH DIFFERENTIAL Routine 11/19/2024 5:25 AM CDT RENAL FUNCTION PANEL Routine 11/19/2024 5:25 AM CDT POC GLUCOSE Routine 11/18/2024 9:41 PM CDT POC GLUCOSE Routine 11/18/2024 3:44 PM CDT POC GLUCOSE Routine 11/18/2024 12:32 PM CDT ACUTE HEPATITIS PANEL Routine 11/18/2024 10:45 AM CDT POC GLUCOSE Routine 11/18/2024 9:14 AM CDT IR VENOUS ACCESS Routine 11/18/2024 8:51 AM CDT POC GLUCOSE Routine 11/18/2024 5:09 AM CDT PROTIME-INR Routine 11/18/2024 4:19 AM CDT POC GLUCOSE Routine 11/17/2024 8:17 PM CDT POC GLUCOSE Routine 11/17/2024 5:21 PM CDT POC GLUCOSE Routine 11/17/2024 11:27 AM CDT POC GLUCOSE Routine 11/17/2024 7:05 AM CDT US RENAL Stat 11/17/2024 1:21 AM CDT TROPONIN 6 HR, 5TH GEN Timed Study 11/17/2024 12:57 AM CDT IRON, TIBC, AND PERCENT SATURATION Routine 11/17/2024 12:57 AM CDT CBC WITH DIFFERENTIAL Stat 11/17/2024 12:57 AM CDT HEMOGLOBIN A1C Routine 11/17/2024 12:57 AM CDT BASIC METABOLIC PANEL Stat 11/17/2024 12:57 AM CDT TROPONIN 2 HR, 5TH GEN Timed Study 11/16/2024 9:06 PM CDT XR CHEST PA OR AP 1 VW Stat 11/16/2024 6:09 PM CDT TROPONIN BASELINE, 5TH GEN Stat 11/16/2024 5:26 PM CDT CBC WITH DIFFERENTIAL Stat 11/16/2024 5:26 PM CDT PTT Stat 11/16/2024 5:26 PM CDT PROTIME-INR Stat 11/16/2024 5:26 PM CDT BRAIN NATRIURETIC PEPTIDE, BNP OR PROBNP Stat 11/16/2024 5:26 PM CDT COMPREHENSIVE METABOLIC PANEL Stat 11/16/2024 5:26 PM CDT EKG 12-LEAD Stat 11/16/2024 5:12 PM CDT documented in this encounter Results * TELEMETRY REPORT (11/21/2024 2:44 AM CDT) us Provider Scanning ECG ORDERABLES Final Result * (ABNORMAL) POC GLUCOSE (11/20/2024 12:10 PM CDT) GLUCOSE POC 127(H) 74 - 99 mg/dL 11/20/2024 12:10 PM CDT [facility] SPECIMEN SOURCE, GLUCOSE POC Capillary 11/20/2024 12:10 PM CDT [facility] Blood, whole 11/20/2024 12:1 0 PM CDT 11/20/2024 12:24 PM CDT Jenn Jackson MD POINT OF CARE TESTING Final Res ult [facility] CLIA # [id number] [address] [place] [address] * POC GLUCOSE (11/20/2024 7:33 AM CDT) GLUCOSE POC 96 74 - 99 mg/dL 11/20/2024 7:33 AM CDT [facility] SPECIMEN SOURCE, GLUCOSE POC Capillary 11/20/2024 7:33 AM CDT [facility] Blood, whole 11/20/2024 7:33 AM CDT 11/20/2024 8:02 AM CDT us Jenn Jackson MD POINT OF CARE TESTING Final Res ult [facility] FERNANDA # [id number] [id number] [place] [address] * (ABNORMAL) RENAL FUNCTION PANEL (11/20/2024 5:18 AM CDT) SODIUM 139 136 - 145 mmol/L 11/20/2024 6:14 AM CDT [facility] POTASSIUM 3.8 3.5 - 5.1 mmol/L 11/20/2024 6:14 AM CDT [facility] CHLORIDE 102 98 - 107 mmol/L 11/20/2024 6:14 AM CDT [facility] CO2 26 22 - 29 mmol/L 11/20/2024 6:14 AM CDT [facility] CALCIUM 8.8 8.8 - 10.2 mg/dL 11/20/2024 6:14 AM CDT [facility] BUN 27(H) 8 - 23 mg/dL 11/20/2024 6:14 AM CDT [facility] CREATININE 2.86(H) 0.51 - 0.95 mg/dL 11/20/2024 6:14 AM T [facility] GLUCOSE 96 74 - 99 mg/dL 11/20/2024 6:14 AM T [facility] ALBUMIN 3.1(L) 3.5 - 5.2 g/dL 11/20/2024 6:14 AM T [facility] PHOSPHORUS 3.5 2.5 - 4.5 mg/dL 11/20/2024 6:14 AM CDT [facility] GFR 17(L) >=60 mL/min/1. 73 sq meter 11/20/2024 6:14 AM T [facility] Comment:eGFR calculated with 2020 CKD-EPI equation. Vegetarian diet, extremely high or low muscle mass, and may affect results. Cystatin C with Glomerular Filtration Rate is a suitable alternative for these patients. ANION GAP 11 9 - 20 mmol/L 11/20/2024 6:14 AM CDT [facility] Blood Venipuncture / Unknown 11/20/2024 5:18 AM CDT 11/20/2024 5:37 AM CDT us Jenn Jackson MD CHEMISTRY ORDERABLES Final Resu lt [facility] CLIA # [id number] [address] [address] [place] [address] * (ABNORMAL) CBC WITH DIFFERENTIAL (11/20/2024 5:18 AM CDT) WBC 11.1(H) 4.8 - 10.8 K/uL 11/20/2024 5:46 AM CDT [facility] RBC 3.20(L) 4.20 - 5.40 M/uL 11/20/2024 5:46 AM CDT [facility] HEMOGLOBIN 9.0(L) 12.0 - 16.0 g/dL 11/20/2024 5:46 AM [facility] HEMATOCRIT 28.8(L) 36.0 - 46.0 % 11/20/2024 5:46 AM [facility] MCV 90.0 84.0 - 103.0 fL 11/20/2024 5:46 AM CDT [facility] MCH 28.1 27.0 - 34.0 pg 11/20/2024 5:46 AM CDT [facility] MCHC 31.3 30.0 - 35.0 g/dL 11/20/2024 5:46 AM CDT [facility] PLATELETS 264 140 - 440 K/uL 11/20/2024 5:46 AM T [facility] MPV 10.8 8.9 - 12.8 fL 11/20/2024 5:46 AM CDT [facility] RDW 14.4 11.0 - 14.5 % 11/20/2024 5:46 AM [facility] RDW-STDEV 46.6 37.0 - 54.0 fL 11/20/2024 5:46 AM [facility] NEUTROPHILS 67 42 - 75 % 11/20/2024 5:46 AM [facility] LYMPHOCYTES 20(L) 24 - 44 % 11/20/2024 5:46 AM [facility] MONOCYTES 9 2 - 10 % 11/20/2024 5:46 AM [facility] EOSINOPHILS 4 0 - 7 % 11/20/2024 5:46 AM [facility] BASOPHILS 1 0 - 1 % 11/20/2024 5:46 AM [facility] IMMATURE GRANULOCYTES 1 0 - 2 % 11/20/2024 5:46 AM [facility] NEUTROPHIL ABSOLUTE 7.38 2.00 - 8.00 K/uL 11/20/2024 5:46 AM [facility] LYMPHOCYTE ABSOLUTE 2.23 1.20 - 4.00 K/uL 11/20/2024 5:46 AM [facility] MONOCYTE ABSOLUTE 0.96(H) 0.10 - 0.60 K/uL 11/20/2024 5:46 AM [facility] EOSINOPHIL ABSOLUTE 0.39 0.00 - 0.70 K/uL 11/20/2024 5:46 AM [facility] BASOPHILS ABSOLUTE 0.05 0.00 - 0.20 K/uL 11/20/2024 5:46 AM [facility] IMMATURE GRANULOCYTES ABSOLUTE 0.07 0.00 - 0.10 K/uL 11/20/2024 5:46 AM [facility] SMEAR REVIEWED: NA - Not Applicable 11/20/2024 5:46 AM [facility] Blood Venipuncture / Unknown 11/20/2024 5:18 AM CDT 11/20/2024 5:37 AM CDT Jenn Jackson MD HEMATOLOGY ORDERABLES Final Res ult Performing Organization Address [facility]/ZIP Co de Phone Number [facility] CLIA # [id number] [address] [place], [place] [address] * (ABNORMAL) POC GLUCOSE (11/19/2024 9:09 PM CDT) GLUCOSE POC 127(H) 74 - 99 mg/dL 11/19/2024 9:09 PM CDT [facility] SPECIMEN SOURCE, GLUCOSE POC Capillary 11/19/2024 9:09 PM CDT [facility] Blood, whole 11/19/2024 9:09 PM CDT 11/20/2024 12:22 AM CDT Jenn Jackson MD POINT OF CARE TESTING Final Res ult Performing Organization Address [facility] Co de Phone Number [facility] CLIA # [id number] [address] [place], [place] [address] * (ABNORMAL) POC GLUCOSE (11/19/2024 5:20 PM CDT) GLUCOSE POC 118(H) 74 - 99 mg/dL 11/19/2024 5:20 PM CDT [facility] SPECIMEN SOURCE, GLUCOSE POC Capillary 11/19/2024 5:20 PM CDT [facility] Blood, whole 11/19/2024 5:20 PM CDT 11/19/2024 5:27 PM CDT Jenn Jackson MD POINT OF CARE TESTING Final Res ult Performing Organization Address City/[facility]/ZIP Co de Phone Number [facility] CLIA # [id number] [address] [place], [place] [address] * HEMODIALYSIS (11/19/2024 2:14 PM CDT) Narrative [facility] - [facility] - 11/19/2024 2:14 PM CDT Tae Rosales MD 11/19/2024 4:25 PM [facility] - Procedure Note Primary Human Resources Generalist: Dr. Tae Rosales PROCEDURE: Intermittent Hemodialysis INDICATION: acute kidney injury on CKD 4 Procedure: Utilizing the patient's cvc as a vascular access, the patient was initiated on hemodialysis. Dialysis is planned for 2.5 hours. Blood flow of 300 ml per minute and Dialysate flow of 600 ml per minute were prescribed. The bath used was 3 mEq/L potassium, 3 mEq/L calcium, 140 mEq/L sodium and 35 mEq/L bicarbonate. UF goal: 2000 ml, BP stable. Revaclear 300 hollow fiber dialyzer was used. No heparin used for anticoagulation. No complications have been encountered to this point. I was present during dialysis, and was available for the entirety of the dialysis treatment. # Compliant with frequency and duration of dialysis: yes Physical Exam: BP (!) 153/86 (BP Location: Right arm, Patient Position (BP): Supine) Pulse (!) 105 Temp 97.3 F (36.3 C) (Temporal) Resp 16 Ht 5' 2.5 (1.588 m) Wt 90.3 kg (199 lb 1.2 oz) SpO2 94% BMI 35.83 kg/m Normal respiratory effort. NAD. Assesment and Plan: MANUELITO on CKD 4 Will be placed on Sunday treatments. Will see on days of dialysis Will continue to monitor for recovery Working on placement in [facility]. Will give HD day off tomorrow. Plan on next HD Sunday Tae Rosales MD, 11/19/2024 4:24 PM [facility] 11/19/24, 2:14 PM us Tae Rosales MD DIALYSIS ORDERABLES Edited R esult - Final [facility] CLIA # [id number] [address] [place] [address] * (ABNORMAL) POC GLUCOSE (11/19/2024 10:54 AM CDT) GLUCOSE POC 207(H) 74 - 99 mg/dL 11/19/2024 10:54 AM CDT [facility] SPECIMEN SOURCE, GLUCOSE POC Capillary 11/19/2024 10:54 AM CDT [facility] Blood, whole 11/19/2024 10:5 4 AM CDT 11/19/2024 11:52 AM CDT us Jenn Jackson MD POINT OF CARE TESTING Final Res ult [facility] CLIA # [id number] [address] [address] * ECHO COMPLETE - CONTRAST AND STRAIN IF INDICATED (11/19/2024 9:45 AM CDT) Pathologist [facility] EJECTION FRACTION 41 INTERFACE SYSTEM 11/19/2024 7:42 AM CDT Narrative INTERFACE SYSTEM - 11/19/2024 10:05 AM CDT [facility] Cardiovascular Services Echocardiography Laboratory [address] [place] [address] Transthoracic Echocardiography Patient: Yesenia Lemus Study ID: ECHO COMPLETE - Gender: F : 1955 Age: 69 Room: [facility] Study Date: 11/19/2024 Pt Status: Inpatient Study Time: 07:42:28 AM CSN #: [id number] Ordering:Bryan Ramirez Environmental Health And Safety Leader: KojoachMaren becker Indications and History: Atrial fibrillation. HF, Cardiomyopathy; Initial evaluation of known or suspected HF/cardiomyopathy (restrictive, infiltrative, dilated, hypertrophic). Summary and Conclusion: - Left ventricle: The cavity size is normal. Wall thickness is at the upper limits of normal. Global systolic function is mildly reduced. The estimated ejection fraction is 40-45%. For Epic reporting: the left ventricular ejection fraction is 41%. There is diffuse hypokinesis. Interventricular septum shows abnormal bouncy motion. Moderate diastolic dysfunction (grade II, pseudonormal filling pattern), suggestive of elevated LV filling pressures. The longitudinal strain is -13.4% (Normal range is -18 to -25). - Right ventricle: The cavity size is normal. Systolic function is normal. Systolic pressure is moderately increased. The estimated peak pressure is 55mm Hg to 60mm Hg. - Left atrium: The atrium is moderately dilated. - Right atrium: The atrium is mildly dilated. - Mitral valve: The annulus is mildly calcified. The leaflets are mildly thickened. There is moderate regurgitation. - Tricuspid valve: There is mild-moderate regurgitation. - Pericardium: A trivial pericardial effusion is identified. There are bilateral pleural effusions. Procedure information: Comparison is made to the study of 05/07/2012. Study status: Routine. Procedure: A transthoracic echocardiogram was performed. Image quality was adequate. Scanning was performed from the parasternal, apical, subcostal, and suprasternal notch acoustic windows. Study components: M-mode, 2D, complete spectral Doppler, and color Doppler. Height: 158.8cm. Height: 62.5in. Weight: 90.3kg. Weight: 199.1lb. BMI: 35.8kg/m^2. BSA: 2.04m^2. Blood pressure: 120/77 Study date: 11/19/2024. Study time: 07:42 AM. Location: Bedside. Cardiac Anatomy: LEFT VENTRICLE: The cavity size is normal. Wall thickness is at the upper limits of normal. Global systolic function is mildly reduced. The estimated ejection fraction is 40-45%. For Epic reporting: the left ventricular ejection fraction is 41%. There is diffuse hypokinesis. Interventricular septum shows abnormal bouncy motion. The longitudinal strain is -13.4% (Normal range is -18 to -25). Moderate diastolic dysfunction (grade II, pseudonormal filling pattern), suggestive of elevated LV filling pressures. RIGHT VENTRICLE: The cavity size is normal. Systolic function is normal. Systolic pressure is moderately increased. The estimated peak pressure is 55mm Hg to 60mm Hg. LEFT ATRIUM: The atrium is moderately dilated. RIGHT ATRIUM: The atrium is mildly dilated. ATRIAL SEPTUM: No obvious PFO or ASD identified by 2D imaging and color Doppler. AORTIC VALVE: The valve is trileaflet. The leaflets are moderately thickened and mildly calcified. Mobility is not restricted. There is no stenosis. There is no significant regurgitation. MITRAL VALVE: The annulus is mildly calcified. The leaflets are mildly thickened. Mobility is not restricted. No evidence for prolapse. There is no evidence for stenosis. There is moderate regurgitation. TRICUSPID VALVE: Structurally normal valve. Mobility is unrestricted. There is no evidence for stenosis. There is mild-moderate regurgitation. PULMONIC VALVE: Not well visualized. The valve appears to be grossly normal. There is no evidence for stenosis. There is no significant regurgitation. PERICARDIUM: A trivial pericardial effusion is identified. There are bilateral pleural effusions. AORTA: Aortic root: The root is not dilated. Aortic arch: The vessel is not dilated. Measurements Left ventricle Value Right ventricle Value GLS, 2D -13.4 % AFIA, LAX 2.8 cm AFIA, LAX 4.9 cm AFIA 2.8 cm ESD, LAX 3.5 cm TAPSE, 2D 2.4 cm AFIA/bsa, LAX 2.4 cm/m^2 TAPSE, MM 2.4 cm ESD/bsa, LAX 1.7 cm/m^2 S' lateral 10.0 cm/sec FS, LAX 29 % FS, LAX chord 29 % Left atrium Value ESD major ax, A4C 8.0 cm AP dim, ES 4.6 cm ESD/bsa major ax, A4C 3.9 cm/m^2 AP dim index, ES 2.3 cm/m^2 AFIA minor ax, A4C 8.0 cm SI dim, A4C 6.3 cm AFIA/bsa minor ax, A4C 3.9 cm/m^2 Area ES, A4C 24 cm^2 AFIA major ax, A2C 8.7 cm Vol, S 82 ml ESD major ax, A2C 7.8 cm Vol/bsa, S 40 ml/m^2 AFIA/bsa major ax, A2C 4.3 cm/m^2 Vol, ES, 1-p A4C 71 ml ESD/bsa major ax, A2C 3.8 cm/m^2 Vol/bsa, ES, 1-p A4C 35 ml/m^2 IVS, ED 1.0 cm Vol, ES, 1-p A2C 83 ml ESD 3.5 cm Vol/bsa, ES, 1-p A2C 41 ml/m^2 ESD/bsa 1.7 cm/m^2 Vol, ES, 2-p 76 ml FS 29 % Vol/bsa, ES, 2-p 38 ml/m^2 PW, ED 1.0 cm Vol, ES, A/L 76 ml IVS/PW, ED 1.05 Vol/bsa, ES, A/L 37 ml/m^2 EDV, 1-p A2C 136 ml ESV, 1-p A2C 62 ml Right atrium Value EF, 1-p A2C 45 % Area, ES 19 cm^2 EDV/bsa, 1-p A2C 67 ml/m^2 Area, ES, A4C 19 cm^2 ESV/bsa, 1-p A2C 30 ml/m^2 EDV, 1-p A4C 124 ml Aortic valve Value ESV, 1-p A4C 80 ml Peak v, S 84.55 cm/sec EF, 1-p A4C 36 % Peak grad, S 3 mm Hg SV, 1-p A4C 44 ml LVOT/AV, Vpeak ratio 0.83 EDV/bsa, 1-p A4C 61 ml/m^2 DYLAN, Vmax 2.53 cm^2 ESV/bsa, 1-p A4C 39 ml/m^2 DYLAN/bsa, Vmax 1.24 cm^2/m^2 SV/bsa, 1-p A4C 22 ml/m^2 EDV, 2-p 131 ml Mitral valve Value ESV, 2-p 77 ml Peak E 85.92 cm/sec EF, 2-p 41 % Peak A 54.05 cm/sec SV, 2-p 74 ml Decel slope 535.47 cm/s^2 EDV/bsa, 2-p 64 ml/m^2 Decel time 160 ms ESV/bsa, 2-p 38 ml/m^2 Peak grad, D 3 mm Hg SV/bsa, 2-p 36.4 ml/m^2 Peak E/A ratio 1.59 E', lat tin, TDI 7.5 cm/sec Vena contracta width 2.8 cm E/e', lat tin, TDI 12 E', med tin, TDI 6.6 cm/sec Tricuspid valve Value E/e', med tin, TDI 13 TR peak v 335.59 cm/sec E', avg, TDI 7.0 cm/sec Peak RV-RA grad, S 45 mm Hg E/e', avg, TDI 12 Ascending aorta Value LVOT Value AAo AP diam, S 3.5 cm Diam, S 2.0 cm AAo AP diam/bsa, S 1.7 cm/m^2 Area 3.0 cm^2 Peak derek, S 70.17 cm/sec Peak grad, S 2 mm Hg Legend: (L) and (H) pretty values outside specified reference range. [facility] are accredited with the Intersocietal Accreditation Commission - Echocardiography. Prepared and Electronically Authenticated Pino Soni Confirmed 11/19/2024 10:05 Procedure Note Pino Soni MD - 11/19/2024 [facility] Cardiovascular Services Echocardiography Laboratory [address] [place] [address] Transthoracic Echocardiography Patient: Yesenia Lemus Study ID: ECHO COMPLETE- Gender: F : 1955 Age: 69 Room: [facility] Study Date: 11/19/2024 Pt Status: Inpatient Study Time: 07:42:28 AM CSN #: [id number] Ordering:Bryan Ramirez Environmental Health And Safety Leader: AlychristMaren becker Indications and History: Atrial fibrillation. HF, Cardiomyopathy; Initial evaluation of known or suspected HF/cardiomyopathy (restrictive, infiltrative, dilated, hypertrophic). Summary and Conclusion: - Left ventricle: The cavity size is normal. Wall thickness is at theupper limits of normal. Global systolic function is mildly reduced. Theestimated ejection fraction is 40-45%. For Epic reporting: the left ventricular ejection fraction is 41%. There is diffuse hypokinesis.Interventricular septum shows abnormal bouncy motion. Moderate diastolic dysfunction(grade II, pseudonormal filling pattern), suggestive of elevated LV filling pressures. The longitudinal strain is -13.4% (Normal range is -18 to-25). - Right ventricle: The cavity size is normal. Systolic function isnormal. Systolic pressure is moderately increased. The estimated peak pressureis 55mm Hg to 60mm Hg. - Left atrium: The atrium is moderately dilated. - Right atrium: The atrium is mildly dilated. - Mitral valve: The annulus is mildly calcified. The leaflets are mildly thickened. There is moderate regurgitation. - Tricuspid valve: There is mild-moderate regurgitation. - Pericardium: A trivial pericardial effusion is identified. There are bilateral pleural effusions. Procedure information: Comparison is made to the study of 05/07/2012.Study status: Routine. Procedure: A transthoracic echocardiogram wasperformed. Image quality was adequate. Scanning was performed from the parasternal, apical, subcostal, and suprasternal notch acoustic windows.Study components: M-mode, 2D, complete spectral Doppler, and color Doppler. Height: 158.8cm. Height: 62.5in. Weight: 90.3kg. Weight: 199.1lb.BMI: 35.8kg/m^2. BSA: 2.04m^2. Blood pressure: 120/77 Studydate: 11/19/2024. Study time: 07:42 AM. Location: Bedside. Cardiac Anatomy: LEFT VENTRICLE: The cavity size is normal. Wall thickness is at theupper limits of normal. Global systolic function is mildly reduced. Theestimated ejection fraction is 40-45%. For Epic reporting: the left ventricularejection fraction is 41%. There is diffuse hypokinesis. Interventricular septumshows abnormal bouncy motion. The longitudinal strain is -13.4% (Normal range is-18 to -25). Moderate diastolic dysfunction (grade II, pseudonormal filling pattern), suggestive of elevated LV filling pressures. RIGHT VENTRICLE: The cavity size is normal. Systolic function isnormal. Systolic pressure is moderately increased. The estimated peak pressure is55mm Hg to 60mm Hg. LEFT ATRIUM: The atrium is moderately dilated. RIGHT ATRIUM: The atrium is mildly dilated. ATRIAL SEPTUM: No obvious PFO or ASD identified by 2D imaging and color Doppler. AORTIC VALVE: The valve is trileaflet. The leaflets are moderatelythickened and mildly calcified. Mobility is not restricted. There is no stenosis. There is no significant regurgitation. MITRAL VALVE: The annulus is mildly calcified. The leaflets are mildly thickened. Mobility is not restricted. No evidence for prolapse. There isno evidence for stenosis. There is moderate regurgitation. TRICUSPID VALVE: Structurally normal valve. Mobility isunrestricted. There is no evidence for stenosis. There is mild-moderateregurgitation. PULMONIC VALVE: Not well visualized. The valve appears to be grosslynormal. There is no evidence for stenosis. There is no significantregurgitation. PERICARDIUM: A trivial pericardial effusion is identified. There are bilateral pleural effusions. AORTA: Aortic root: The root is not dilated. Aortic arch: The vessel is not dilated. Measurements Left ventricle Value Right ventricle Value GLS, 2D -13.4 % AFIA, LAX 2.8 cm AFIA, LAX 4.9 cm AFIA 2.8 cm ESD, LAX 3.5 cm TAPSE, 2D 2.4 cm AFIA/bsa, LAX 2.4 cm/m^2 TAPSE, MM 2.4 cm ESD/bsa, LAX 1.7 cm/m^2 S' lateral 10.0cm/sec FS, LAX 29 % FS, LAX chord 29 % Left atrium Value ESD major ax, A4C 8.0 cm AP dim, ES 4.6 cm ESD/bsa major ax, A4C 3.9 cm/m^2 AP dim index, ES 2.3cm/m^2 AFIA minor ax, A4C 8.0 cm SI dim, A4C 6.3 cm AFIA/bsa minor ax, A4C 3.9 cm/m^2 Area ES, A4C 24 cm^2 AFIA major ax, A2C 8.7 cm Vol, S 82 ml ESD major ax, A2C 7.8 cm Vol/bsa, S 40ml/m^2 AFIA/bsa major ax, A2C 4.3 cm/m^2 Vol, ES, 1-p A4C 71 ml ESD/bsa major ax, A2C 3.8 cm/m^2 Vol/bsa, ES, 1-p A4C 35ml/m^2 IVS, ED 1.0 cm Vol, ES, 1-p A2C 83 ml ESD 3.5 cm Vol/bsa, ES, 1-p A2C 41ml/m^2 ESD/bsa 1.7 cm/m^2 Vol, ES, 2-p 76 ml FS 29 % Vol/bsa, ES, 2-p 38ml/m^2 PW, ED 1.0 cm Vol, ES, A/L 76 ml IVS/PW, ED 1.05 Vol/bsa, ES, A/L 37ml/m^2 EDV, 1-p A2C 136 ml ESV, 1-p A2C 62 ml Right atrium Value EF, 1-p A2C 45 % Area, ES 19 cm^2 EDV/bsa, 1-p A2C 67 ml/m^2 Area, ES, A4C 19 cm^2 ESV/bsa, 1-p A2C 30 ml/m^2 EDV, 1-p A4C 124 ml Aortic valve Value ESV, 1-p A4C 80 ml Peak v, S 84.55cm/sec EF, 1-p A4C 36 % Peak grad, S 3 mm Hg SV, 1-p A4C 44 ml LVOT/AV, Vpeak ratio 0.83 EDV/bsa, 1-p A4C 61 ml/m^2 DYLAN, Vmax 2.53 cm^2 ESV/bsa, 1-p A4C 39 ml/m^2 DYLAN/bsa, Vmax 1.24cm^2/m^2 SV/bsa, 1-p A4C 22 ml/m^2 EDV, 2-p 131 ml Mitral valve Value ESV, 2-p 77 ml Peak E 85.92cm/sec EF, 2-p 41 % Peak A 54.05cm/sec SV, 2-p 74 ml Decel slope 535.47cm/s^2 EDV/bsa, 2-p 64 ml/m^2 Decel time 160 ms ESV/bsa, 2-p 38 ml/m^2 Peak grad, D 3 mm Hg SV/bsa, 2-p 36.4 ml/m^2 Peak E/A ratio 1.59 E', lat tin, TDI 7.5 cm/sec Vena contracta width 2.8 cm E/e', lat tin, TDI 12 E', med tin, TDI 6.6 cm/sec Tricuspid valve Value E/e', med tin, TDI 13 TR peak v 335.59cm/sec E', avg, TDI 7.0 cm/sec Peak RV-RA grad, S 45 mm Hg E/e', avg, TDI 12 Ascending aorta Value LVOT Value AAo AP diam, S 3.5 cm Diam, S 2.0 cm AAo AP diam/bsa, S 1.7cm/m^2 Area 3.0 cm^2 Peak derek, S 70.17 cm/sec Peak grad, S 2 mm Hg Legend: (L) and (H) pretty values outside specified reference range. [facility] are accredited with theIntersocietal Accreditation Commission - Echocardiography. Prepared and Electronically Authenticated Pino Soni Confirmed 11/19/2024 10:05 us Bryan Ramirez MD US ORDERABLES Final Result INTERFACE SYSTEM Refer to clinic/hospital department * POC GLUCOSE (11/19/2024 7:49 AM CDT) GLUCOSE POC 90 74 - 99 mg/dL 11/19/2024 7:49 AM CDT [facility] SPECIMEN SOURCE, GLUCOSE POC Capillary 11/19/2024 7:49 AM CDT [facility] Blood, whole 11/19/2024 7:49 AM CDT 11/19/2024 7:57 AM CDT us Prabin Manuel MD POINT OF CARE TESTING Final Res ult Performing Organization Address City/[facility]/ZIP Co de Phone Number [facility] CLIA # [id number] [address] [place], [place] [address] * (ABNORMAL) POC GLUCOSE (11/19/2024 7:06 AM CDT) GLUCOSE POC 71(L) 74 - 99 mg/dL 11/19/2024 7:06 AM CDT [facility] SPECIMEN SOURCE, GLUCOSE POC Capillary 11/19/2024 7:06 AM CDT [facility] Blood, whole 11/19/2024 7:06 AM CDT 11/19/2024 11:52 AM CDT Jenn Jackson MD POINT OF CARE TESTING Final Res ult Performing Organization Address [facility] Co de Phone Number [facility] CLIA # [id number] [address] [facility] [place], [place] [address] * POC GLUCOSE (11/19/2024 6:57 AM CDT) GLUCOSE POC 76 74 - 99 mg/dL 11/19/2024 6:57 AM CDT [facility] SPECIMEN SOURCE, GLUCOSE POC Capillary 11/19/2024 6:57 AM CDT [facility] Blood, whole 11/19/2024 6:57 AM CDT 11/19/2024 7:57 AM CDT Jenn Jackson MD POINT OF CARE TESTING Final Res ult Performing Organization Address City/[facility]/ZIP Co de Phone Number [facility] CLIA # [id number] [address] [place] [address] * (ABNORMAL) RENAL FUNCTION PANEL (11/19/2024 5:25 AM CDT) SODIUM 143 136 - 145 mmol/L 11/19/2024 6:48 AM T [facility] POTASSIUM 3.8 3.5 - 5.1 mmol/L 11/19/2024 6:48 AM T [facility] CHLORIDE 106 98 - 107 mmol/L 11/19/2024 6:48 AM T [facility] CO2 26 22 - 29 mmol/L 11/19/2024 6:48 AM T [facility] CALCIUM 9.1 8.8 - 10.2 mg/dL 11/19/2024 6:48 AM [facility] BUN 43(H) 8 - 23 mg/dL 11/19/2024 6:48 AM T [facility] CREATININE 3.35(H) 0.51 - 0.95 mg/dL 11/19/2024 6:48 AM [facility] GLUCOSE 71(L) 74 - 99 mg/dL 11/19/2024 6:48 AM [facility] ALBUMIN 3.3(L) 3.5 - 5.2 g/dL 11/19/2024 6:48 AM [facility] PHOSPHORUS 4.5 2.5 - 4.5 mg/dL 11/19/2024 6:48 AM [facility] GFR 14(L) >=60 mL/min/1. 73 sq meter 11/19/2024 6:48 AM [facility] Comment:eGFR calculated with 2020 CKD-EPI equation. Vegetarian diet, extremely high or low muscle mass, and may affect results. Cystatin C with Glomerular Filtration Rate is a suitable alternative for these patients. ANION GAP 11 9 - 20 mmol/L 11/19/2024 6:48 AM T [facility] Blood Venipuncture / Unknown 11/19/2024 5:25 AM CDT 11/19/2024 5:48 AM CDT us Prabin Manuel MD CHEMISTRY ORDERABLES Final Resu lt [facility] CLIA # [id number] [address] [address] [place] [address] * (ABNORMAL) CBC WITH DIFFERENTIAL (11/19/2024 5:25 AM CDT) [facility] WBC 8.6 4.8 - 10.8 K/uL 11/19/2024 6:02 AM T [facility] RBC 3.38(L) 4.20 - 5.40 M/uL 11/19/2024 6:02 AM [facility] HEMOGLOBIN 9.5(L) 12.0 - 16.0 g/dL 11/19/2024 6:02 AM [facility] HEMATOCRIT 30.1(L) 36.0 - 46.0 % 11/19/2024 6:02 AM [facility] MCV 89.1 84.0 - 103.0 fL 11/19/2024 6:02 AM [facility] MCH 28.1 27.0 - 34.0 pg 11/19/2024 6:02 AM [facility] MCHC 31.6 30.0 - 35.0 g/dL 11/19/2024 6:02 AM [facility] PLATELETS 283 140 - 440 K/uL 11/19/2024 6:02 AM [facility] MPV 11.3 8.9 - 12.8 fL 11/19/2024 6:02 AM [facility] RDW 14.3 11.0 - 14.5 % 11/19/2024 6:02 AM [facility] RDW-STDEV 45.9 37.0 - 54.0 fL 11/19/2024 6:02 AM [facility] NEUTROPHILS 67 42 - 75 % 11/19/2024 6:02 AM [facility] LYMPHOCYTES 19(L) 24 - 44 % 11/19/2024 6:02 AM CDT [facility] MONOCYTES 10 2 - 10 % 11/19/2024 6:02 AM CDT [facility] EOSINOPHILS 3 0 - 7 % 11/19/2024 6:02 AM CDT [facility] BASOPHILS 1 0 - 1 % 11/19/2024 6:02 AM CDT [facility] IMMATURE GRANULOCYTES 0 0 - 2 % 11/19/2024 6:02 AM CDT [facility] NEUTROPHIL ABSOLUTE 5.72 2.00 - 8.00 K/uL 11/19/2024 6:02 AM CDT [facility] LYMPHOCYTE ABSOLUTE 1.66 1.20 - 4.00 K/uL 11/19/2024 6:02 AM CDT [facility] MONOCYTE ABSOLUTE 0.85(H) 0.10 - 0.60 K/uL 11/19/2024 6:02 AM CDT [facility] EOSINOPHIL ABSOLUTE 0.26 0.00 - 0.70 K/uL 11/19/2024 6:02 AM CDT [facility] BASOPHILS ABSOLUTE 0.09 0.00 - 0.20 K/uL 11/19/2024 6:02 AM CDT [facility] IMMATURE GRANULOCYTES ABSOLUTE 0.02 0.00 - 0.10 K/uL 11/19/2024 6:02 AM T [facility] SMEAR REVIEWED: NA - Not Applicable 11/19/2024 6:02 AM [facility] Blood Venipuncture / Unknown 11/19/2024 5:25 AM CDT 11/19/2024 5:48 AM CDT us Jenn Jackson MD HEMATOLOGY ORDERABLES Final Res ult [facility] CLIA # [id number] [facility] [address] [place] [address] * (ABNORMAL) POC GLUCOSE (11/18/2024 9:41 PM CDT) GLUCOSE POC 158(H) 74 - 99 mg/dL 11/18/2024 9:41 PM CDT [facility] SPECIMEN SOURCE, GLUCOSE POC Capillary 11/18/2024 9:41 PM CDT [facility] Blood, whole 11/18/2024 9:41 PM CDT 11/18/2024 9:50 PM CDT Jenn Jackson MD POINT OF CARE TESTING Final Res ult Performing Organization Address [facility]/ZIP Co de Phone Number [facility] CLIA # [id number] [address] [place], [place] [address] * (ABNORMAL) POC GLUCOSE (11/18/2024 3:44 PM CDT) GLUCOSE POC 158(H) 74 - 99 mg/dL 11/18/2024 3:44 PM CDT [facility] SPECIMEN SOURCE, GLUCOSE POC Capillary 11/18/2024 3:44 PM CDT [facility] Blood, whole 11/18/2024 3:44 PM CDT 11/18/2024 5:25 PM CDT Jenn Jackson MD POINT OF CARE TESTING Final Res ult Performing Organization Address City/[facility]/ZIP Co de Phone Number [facility] CLIA # [id number] [address] [place], [place] [address] * (ABNORMAL) POC GLUCOSE (11/18/2024 12:32 PM CDT) GLUCOSE POC 114(H) 74 - 99 mg/dL 11/18/2024 12:32 PM CDT [facility] SPECIMEN SOURCE, GLUCOSE POC Capillary 11/18/2024 12:32 PM CDT [facility] Blood, whole 11/18/2024 12:3 2 PM CDT 11/18/2024 1:06 PM CDT us Jenn Jackson MD POINT OF CARE TESTING Final Res ult Performing Organization Address [facility] de Phone Number [facility] CLIA # [id number] [address] [address] * ACUTE HEPATITIS PANEL (11/18/2024 10:45 AM CDT) HEPATITIS B SURFACE AG NON-REACT TOY Non-react toy 11/18/2024 12:13 PM CDT [facility] Comment:A non-reactive test result does not exclude the possibility of exposure to or infection with hepatitis B. HEPATITIS B CORE IGM NON-REACT TOY Non-react toy 11/18/2024 12:13 PM CDT [facility] Comment:IgM antibodies to HB c were not detected; does not exclude the possibility of exposure to HBV. HEPATITIS A IGM Non-react toy Non-react toy 11/18/2024 12:13 PM CDT [facility] Comment:A negative test resu lt does not exclude the possibility of exposure to Hepatitis A virus. HEPATITIS C AB NON-REACT TOY Non-react toy 11/18/2024 12:13 PM CDT [facility] Comment:Antibodies to HCV we re not detected, does not exclude the possibility of exposure to HCV. Blood Venipuncture / Unknown 11/18/2024 10:45 AM CDT 11/18/2024 11:36 AM CDT us Tae Rosales MD CHEMISTRY ORDERABLES Final R esult Performing Organization Address [facility]/ZIP Co de Phone Number [facility] CLIA # [id number] [address] [place] [address] * (ABNORMAL) POC GLUCOSE (11/18/2024 9:14 AM CDT) GLUCOSE POC 125(H) 74 - 99 mg/dL 11/18/2024 9:14 AM CDT [facility] SPECIMEN SOURCE, GLUCOSE POC Venous 11/18/2024 9:14 AM CDT [facility] Blood, whole 11/18/2024 9:14 AM CDT 11/18/2024 9:22 AM CDT us Jenn Jackson MD POINT OF CARE TESTING Final Res ult [facility] CLIA # [id number] [address] [address] [place] [address] * IR VENOUS ACCESS (11/18/2024 8:51 AM CDT) Anatomical Region Laterality Modality X-Ray Angiograph y 11/18/2024 8:51 AM CDT Impressions 11/18/2024 3:15 PM CDT IMPRESSION: Please see below. EXAM: Ultrasound and fluoroscopy guided tunneled hemodialysis catheter placement OPERATORS: Jose Anderson MD ACCESS SITE: Right internal jugular vein with ultrasound MEDICATIONS: Versed and Fentanyl were titrated to effect. Ancef 2 gram IV. Moderate (conscious) sedation for this procedure was performed with continuous physician supervision. Medical history, physical exam, drug dosages, routes of drug administration, monitoring data, and precise times of service are documented in the medical record on the [facility]-approved form, 'Sedative/Analgesic Administration for Diagnostic and Therapeutic Procedures'. Please see nursing flow sheets for dosage and time. Sedation was administered by a trained independent observer. I personally supervised 19 minutes of sedation. CONTRAST: None FLUOROSCOPY TIME: 0.6 minutes CATHETER: 14.5 Lithuanian, 19 cm tip to cuff catheter ESTIMATED BLOOD LOSS: Minimal COMPLICATIONS: None TECHNIQUE: The risks, benefits, and alternatives to the procedure and sedation were explained. Written informed consent was obtained. The right neck and upper chest were prepped and draped in sterile fashion. Using local anesthetic and ultrasound guidance, the right internal jugular vein was punctured with a 21 gauge needle. An image was saved and stored to PACS. A 0.018-inch wire was passed centrally and the needle exchanged for a 5 Lithuanian transitional dilator. A 0.035-inch wire was advanced through the dilator and negotiated into the IVC. The microwire was used to measure the intravascular length. The soft tissues caudal and lateral to the sheath entry site were anesthetized with lidocaine with epinephrine. A dermatotomy was made and a tunneling tool brought from the dermatotomy to the venotomy. The catheter was brought through the tunnel. The skin tract was dilated and a 15 Lithuanian dilator peel-away combination placed over the wire. During suspended respiration, the catheter was advanced through the peel-away and positioned centrally using fluoroscopy. The peel-away was removed and hemostasis achieved with manual compression. The venotomy was closed with Dermabond applied. The catheter was secured with 2-0 suture. An antimicrobial disc and sterile dressing were applied. The catheter was aspirated, flushed, and heparinized per protocol. The procedure was well tolerated, and the patient was discharged in satisfactory condition. FINDINGS: 1. The right internal jugular vein is ultrasonographically patent. Needle entry was documented. 2. The newly placed catheter has a smooth course with the tips terminating in the right atrium. 3. There is excellent function with 20 ml syringes. IMPRESSION: Uneventful image guided placement of a right internal jugular tunneled hemodialysis catheter as described. Narrative Procedure Note Jose Anderson MD - 11/18/2024 IMPRESSION: Please see below. EXAM: Ultrasound and fluoroscopy guided tunneled hemodialysis catheter placement OPERATORS: Jose Anderson MD ACCESS SITE: Right internal jugular vein with ultrasound MEDICATIONS: Versed and Fentanyl were titrated to effect. Ancef 2 gram IV. Moderate (conscious) sedation for this procedure was performed with continuous physician supervision. Medical history, physical exam, drug dosages, routes of drug administration, monitoring data, and precise times of service are documented in the medical record [facility] form, 'Sedative/Analgesic Administration for Diagnostic and Therapeutic Procedures'. Please see nursing flow sheets for dosage and time. Sedation was administered by a trained independent observer. I personally supervised 19 minutes of sedation. CONTRAST: None FLUOROSCOPY TIME: 0.6 minutes CATHETER: 14.5 Lithuanian, 19 cm tip to cuff catheter ESTIMATED BLOOD LOSS: Minimal COMPLICATIONS: None TECHNIQUE: The risks, benefits, and alternatives to the procedure and sedation were explained. Written informed consent was obtained. The right neck and upper chest were prepped and draped in sterile fashion. Using local anesthetic and ultrasound guidance, the right internal jugular vein was punctured with a 21 gauge needle. An image was saved and stored to PACS. A 0.018-inch wire was passed centrally and the needle exchanged for a 5 Lithuanian transitional dilator. A 0.035-inch wire was advanced through the dilator and negotiated into the IVC. The microwire was used to measure the intravascular length. The soft tissues caudal and lateral to the sheath entry site were anesthetized with lidocaine with epinephrine. A dermatotomy was made and a tunneling tool brought from the dermatotomy to the venotomy. The catheter was brought through the tunnel. The skin tract was dilated and a 15 Lithuanian dilator peel-away combination placed over the wire. During suspended respiration, the catheter was advanced through the peel-away and positioned centrally using fluoroscopy. The peel-away was removed and hemostasis achieved with manual compression. The venotomy was closed with Dermabond applied. The catheter was secured with 2-0 suture. An antimicrobial disc and sterile dressing were applied. The catheter was aspirated, flushed, and heparinized per protocol. The procedure was well tolerated, and the patient was discharged in satisfactory condition. FINDINGS: 1. The right internal jugular vein is ultrasonographically patent. Needle entry was documented. 2. The newly placed catheter has a smooth course with the tips terminating in the right atrium. 3. There is excellent function with 20 ml syringes. IMPRESSION: Uneventful image guided placement of a right internal jugular tunneled hemodialysis catheter as described. us Tae Rosales MD IR ORDERABLES Final Result * (ABNORMAL) POC GLUCOSE (11/18/2024 5:09 AM CDT) GLUCOSE POC 148(H) 74 - 99 mg/dL 11/18/2024 5:09 AM CDT [facility] SPECIMEN SOURCE, GLUCOSE POC Capillary 11/18/2024 5:09 AM T [facility] Blood, whole 11/18/2024 5:09 AM CDT 11/18/2024 7:17 AM CDT us Jenn Jackson MD POINT OF CARE TESTING Final Res ult Performing Organization Address City/[facility]/ZIP Co de Phone Number [facility] [employer] [facility] CLIA # [id number] [address] [address] * (ABNORMAL) PROTIME-INR (11/18/2024 4:19 AM CDT) Pathologist [facility] PROTIME 15.3(H) 12.7 - 14.9 Seconds 11/18/2024 5:19 AM CDT [facility] INR 1.1 0.8 - 1.2 11/18/2024 5:19 AM CDT [facility] Blood Venipuncture / Unknown 11/18/2024 4:19 AM CDT 11/18/2024 4:54 AM CDT Narrative [facility] - 11/18/2024 5:19 AM CDT Expected Values for INR: DVT/PE Goal INR 2.5; range 2.0 - 3.0 Valve Replacement Tissue Goal INR 2.5; range 2.0 - 3.0 Valve Replacement Mechanical Goal INR 3.0; range 2.5 - 3.5 POST-ID Goal INR 2.5; range 2.0 - 3.0 or Goal INR 3.0; range 2.5 - 3.5 Atrial Fibrillation Goal INR 2.5; range 2.0 - 3.0 Ischemic Stroke Goal INR 2.5; range 2.0 - 3.0 us Tae Rosales MD HEMATOLOGY ORDERABLES Final Result [facility] CLIA # [id number] [address] [id number] * (ABNORMAL) POC GLUCOSE (11/17/2024 8:17 PM CDT) GLUCOSE POC 265(H) 74 - 99 mg/dL 11/17/2024 8:17 PM CDT [facility] SPECIMEN SOURCE, GLUCOSE POC Capillary 11/17/2024 8:17 PM CDT [facility] Blood, whole 11/17/2024 8:17 PM CDT 11/17/2024 10:24 PM CDT Jenn Jackson MD POINT OF CARE TESTING Final Res ult [facility] CLIA # [id number] [address] [address] [place] [address] * (ABNORMAL) POC GLUCOSE (11/17/2024 5:21 PM CDT) GLUCOSE POC 231(H) 74 - 99 mg/dL 11/17/2024 5:21 PM CDT [facility] SPECIMEN SOURCE, GLUCOSE POC Capillary 11/17/2024 5:21 PM CDT [facility] Blood, whole 11/17/2024 5:21 PM CDT 11/17/2024 5:32 PM CDT Jenn Jackson MD POINT OF CARE TESTING Final Res ult Performing Organization Address [facility]/ZIP Co de Phone Number [facility] CLIA # [id number] [address] [address] * (ABNORMAL) POC GLUCOSE (11/17/2024 11:27 AM CDT) GLUCOSE POC 182(H) 74 - 99 mg/dL 11/17/2024 11:27 AM CDT [facility] SPECIMEN SOURCE, GLUCOSE POC Capillary 11/17/2024 11:27 AM CDT [facility] Blood, whole 11/17/2024 11:2 7 AM CDT 11/17/2024 11:44 AM CDT Jenn Jackson MD POINT OF CARE TESTING Final Res ult Performing Organization Address [facility] Co de Phone Number [facility] CLIA # [id number] [address] [address] * (ABNORMAL) POC GLUCOSE (11/17/2024 7:05 AM CDT) [facility] GLUCOSE POC 201(H) 74 - 99 mg/dL 11/17/2024 7:05 AM CDT [facility] SPECIMEN SOURCE, GLUCOSE POC Capillary 11/17/2024 7:05 AM CDT [facility] Blood, whole 11/17/2024 7:05 AM CDT 11/17/2024 8:31 AM CDT Jenn Jackson MD POINT OF CARE TESTING Final Res ult Performing Organization Address [facility] Co de Phone Number [facility] CLIA # [id number] [address] [address] * US RENAL (11/17/2024 1:21 AM CDT) Anatomical Region Laterality Modality Abdomen Ultrasound 11/17/2024 1:06 AM CDT Impressions 11/17/2024 7:08 AM CDT IMPRESSION: Please see below. Exam: US RENAL Date/Time of Exam: 11/17/2024 1:21 AM Reason For Exam: Acute Renal Failure. Diagnosis: Acute on chronic congestive heart failure, unspecified heart failure type (CMS/HCC); Acute respiratory failure, unspecified whether with hypoxia or hypercapnia (CMS/HCC); MANUELITO (acute kidney injury). Findings: Comparison is made to the CT of 05/15/2012. Right kidney: Remarkable. The right kidney measures 11.8 cm in length. The right kidney is smooth in contour. The cortex is of normal thickness and echo content. There is a 9 x 6 x 6 mm mid pole cortical cyst. No solid lesions or calculi are noted. There is no hydronephrosis. Left kidney: Remarkable. The left kidney measures 12.0 cm in length. The left kidney is lobulated. The cortex is of normal thickness and echo content. There is a 10 x 8 x 9 mm midpole cortical cyst. No solid lesions or calculi are noted. There is no hydronephrosis. IMPRESSION: Small bilateral renal cortical cysts. Otherwise unremarkable exam. Narrative Procedure Note Lilli Wright MD - 11/17/2024 IMPRESSION: Please see below. Exam: US RENAL Date/Time of Exam: 11/17/2024 1:21 AM Reason For Exam: Acute Renal Failure. Diagnosis: Acute on chronic congestive heart failure, unspecified heart failure type (CMS/HCC); Acute respiratory failure, unspecified whether with hypoxia or hypercapnia (CMS/HCC); MANUELITO (acute kidney injury). Findings: Comparison is made to the CT of 05/15/2012. Right kidney: Remarkable. The right kidney measures 11.8 cm in length. The right kidney is smooth in contour. The cortex is of normal thickness and echo content. There is a 9 x 6 x 6 mm mid pole cortical cyst. No solid lesions or calculi are noted. There is no hydronephrosis. Left kidney: Remarkable. The left kidney measures 12.0 cm in length. The left kidney is lobulated. The cortex is of normal thickness and echo content. There is a 10 x 8 x 9 mm midpole cortical cyst. No solid lesions or calculi are noted. There is no hydronephrosis. IMPRESSION: Small bilateral renal cortical cysts. Otherwise unremarkable exam. Bryan Ramirez MD US ORDERABLES Final Result * (ABNORMAL) HEMOGLOBIN A1C (11/17/2024 12:57 AM CDT) HEMOGLOBIN A1C 8.3(H) <=5.6 % 11/20/2024 11:26 AM CDT [facility] [employer] EST. AVG GLUCOSE, A1C 192 mg/dL 11/20/2024 11:26 AM [facility] [employer] [facility] Blood Venipuncture / Unknown 11/17/2024 12:57 AM CDT 11/17/2024 1:01 AM CDT Narrative [facility] - 11/20/2024 11:26 AM CDT HGB A1C INTERPRETATION NORMAL: <5.7% PRE-DIABETES: 5.7 - 6.4% DIABETES: 6.5% OR GREATER Jenn Jackson MD CHEMISTRY ORDERABLES Final Resu lt Performing Organization Address [facility]/ZIP Co de Phone Number [facility] CLIA # [id number] [address] [address] * (ABNORMAL) IRON, TIBC, AND PERCENT SATURATION (11/17/2024 12:57 AM CDT) IRON 37 37 - 145 ug/dL 11/17/2024 10:10 AM CDT [facility] TIBC 280 250 - 450 ug/dL 11/17/2024 10:10 AM CDT [facility] IRON % SATURATION 13(L) 15 - 60 % 11/17/2024 10:10 AM CDT [facility] Blood Venipuncture / Unknown 11/17/2024 12:57 AM CDT 11/17/2024 1:03 AM CDT Tae Rosales MD CHEMISTRY ORDERABLES Final R esult Performing Organization Address [facility]/ZIP Co de Phone Number [facility] CLIA # [id number] [address] [id number] * (ABNORMAL) BASIC METABOLIC PANEL (11/17/2024 12:57 AM CDT) SODIUM 143 136 - 145 mmol/L 11/17/2024 1:36 AM CDT [facility] POTASSIUM 5.8(H) 3.5 - 5.1 mmol/L 11/17/2024 1:36 AM CDT [facility] CHLORIDE 108(H) 98 - 107 mmol/L 11/17/2024 1:36 AM T [facility] CO2 24 22 - 29 mmol/L 11/17/2024 1:36 AM T [facility] CALCIUM 9.2 8.8 - 10.2 mg/dL 11/17/2024 1:36 AM T [facility] BUN 71(H) 8 - 23 mg/dL 11/17/2024 1:36 AM T [facility] CREATININE 4.09(H) 0.51 - 0.95 mg/dL 11/17/2024 1:36 AM T [facility] GLUCOSE 228(H) 74 - 99 mg/dL 11/17/2024 1:36 AM T [facility] GFR 11(L) >=60 mL/min/1. 73 sq meter 11/17/2024 1:36 AM T [facility] Comment:eGFR calculated with 2020 CKD-EPI equation. Vegetarian diet, extremely high or low muscle mass, and may affect results. Cystatin C with Glomerular Filtration Rate is a suitable alternative for these patients. ANION GAP 11 9 - 20 mmol/L 11/17/2024 1:36 AM [facility] Blood Venipuncture / Unknown 11/17/2024 12:57 AM CDT 11/17/2024 1:03 AM CDT us Bryan Ramirez MD CHEMISTRY ORDERABLES Final Resul t [facility] CLIA # [id number] [address] [place] [address] * (ABNORMAL) CBC WITH DIFFERENTIAL (11/17/2024 12:57 AM CDT) WBC 10.9(H) 4.8 - 10.8 K/uL 11/17/2024 1:04 AM [facility] RBC 3.04(L) 4.20 - 5.40 M/uL 11/17/2024 1:04 AM [facility] HEMOGLOBIN 8.7(L) 12.0 - 16.0 g/dL 11/17/2024 1:04 AM [facility] HEMATOCRIT 27.6(L) 36.0 - 46.0 % 11/17/2024 1:04 AM [facility] MCV 90.8 84.0 - 103.0 fL 11/17/2024 1:04 AM [facility] MCH 28.6 27.0 - 34.0 pg 11/17/2024 1:04 AM [facility] MCHC 31.5 30.0 - 35.0 g/dL 11/17/2024 1:04 AM [facility] PLATELETS 324 140 - 440 K/uL 11/17/2024 1:04 AM [facility] MPV 11.0 8.9 - 12.8 fL 11/17/2024 1:04 AM [facility] RDW 14.4 11.0 - 14.5 % 11/17/2024 1:04 AM [facility] RDW-STDEV 47.6 37.0 - 54.0 fL 11/17/2024 1:04 AM [facility] NEUTROPHILS 76(H) 42 - 75 % 11/17/2024 1:04 AM [facility] LYMPHOCYTES 15(L) 24 - 44 % 11/17/2024 1:04 AM [facility] MONOCYTES 7 2 - 10 % 11/17/2024 1:04 AM [facility] EOSINOPHILS 2 0 - 7 % 11/17/2024 1:04 AM [facility] BASOPHILS 1 0 - 1 % 11/17/2024 1:04 AM [facility] IMMATURE GRANULOCYTES 1 0 - 2 % 11/17/2024 1:04 AM [facility] NEUTROPHIL ABSOLUTE 8.23(H) 2.00 - 8.00 K/uL 11/17/2024 1:04 AM CDT [facility] LYMPHOCYTE ABSOLUTE 1.58 1.20 - 4.00 K/uL 11/17/2024 1:04 AM CDT [facility] MONOCYTE ABSOLUTE 0.72(H) 0.10 - 0.60 K/uL 11/17/2024 1:04 AM CDT [facility] EOSINOPHIL ABSOLUTE 0.16 0.00 - 0.70 K/uL 11/17/2024 1:04 AM CDT [facility] BASOPHILS ABSOLUTE 0.07 0.00 - 0.20 K/uL 11/17/2024 1:04 AM CDT [facility] IMMATURE GRANULOCYTES ABSOLUTE 0.09 0.00 - 0.10 K/uL 11/17/2024 1:04 AM T [facility] SMEAR REVIEWED: NA - Not Applicable 11/17/2024 1:04 AM T [facility] Blood Venipuncture / Unknown 11/17/2024 12:57 AM CDT 11/17/2024 1:01 AM CDT us Bryan Ramirez MD HEMATOLOGY ORDERABLES Final Resu lt [facility] CLIA # [id number] [address] [place] [address] * (ABNORMAL) TROPONIN 6 HR, 5TH GEN (11/17/2024 12:57 AM CDT) TROPONIN T, 6 HR 5TH GEN 57(H) <11 ng/L 11/17/2024 1:35 AM CDT [facility] DELTA 6HR TROPONIN T -5 See Interp. 11/17/2024 1:35 AM CDT [facility] Blood Venipuncture / Unknown 11/17/2024 12:57 AM CDT 11/17/2024 1:03 AM CDT Narrative [facility] - 11/17/2024 1:35 AM CDT Troponin elevated. Delta indeterminate. Delay in collection of timed specimen beyond recommended collection interval. Results must be interpreted in clinical context. Mercedes D Ziehr KNIFE OPERATOR CHEMISTRY ORDERABLES Final Re sult Performing Organization Address [facility] Co de Phone Number [facility] CLIA # [id number] [address] [place] [address] * (ABNORMAL) TROPONIN 2 HR, 5TH GEN (11/16/2024 9:06 PM CDT) TROPONIN T, 2 HR 5TH GEN 61(H) <=10 ng/L 11/16/2024 10:25 PM CDT [facility] DELTA 2HR TROPONIN T -1 See Interp. 11/16/2024 10:25 PM CDT [facility] Blood Venipuncture / Unknown 11/16/2024 9:06 PM CDT 11/16/2024 9:54 PM CDT [facility] - 11/16/2024 10:25 PM CDT Troponin elevated. Delta not changing. Delay in collection of timed specimen beyond recommended collection interval. Results must be interpreted in clinical context. Mercedes D Ziehr KNIFE OPERATOR CHEMISTRY ORDERABLES Final Re sult Performing Organization Address [facility] Co de Phone Number [facility] CLIA # [id number] [address] [place] [address] * XR CHEST PA OR AP 1 VW (11/16/2024 6:09 PM CDT) Anatomical Region Laterality Modality Chest Computed Radiogr aphy 11/16/2024 6:09 PM CDT Impressions 11/16/2024 11:32 PM CDT IMPRESSION: See below. Exam: XR CHEST PA OR AP 1 VW Date/Time of Exam: 11/16/2024 6:09 PM Reason For Exam: Shortness of Breath SOB. Diagnosis: See Reason for Exam. Findings: Comparison: 04/29/12 Heart size normal. Small pleural fluid collections. There is airspace opacities are nonspecific. Heart borders are partially obscured with mild central vascular congestion. No pneumothorax. No acute osseous findings. IMPRESSION: 1. Bilateral pleural fluid collections with vascular congestion suggesting CHF exacerbation. Bibasilar airspace opacities represent edema or atelectasis. Narrative Procedure Note Binh Pimentel MD - 11/16/2024 IMPRESSION: See below. Exam: XR CHEST PA OR AP 1 VW Date/Time of Exam: 11/16/2024 6:09 PM Reason For Exam: Shortness of Breath SOB. Diagnosis: See Reason for Exam. Findings: Comparison: 04/29/12 Heart size normal. Small pleural fluid collections. There is airspace opacities are nonspecific. Heart borders are partially obscured with mild central vascular congestion. No pneumothorax. No acute osseous findings. IMPRESSION: 1. Bilateral pleural fluid collections with vascular congestion suggesting CHF exacerbation. Bibasilar airspace opacities represent edema or atelectasis. Mercedesnury Thompson KNIFE OPERATOR DIAGNOSTIC IMAGING ORDERABLES Final Result * (ABNORMAL) TROPONIN BASELINE, 5TH GEN (11/16/2024 5:26 PM CDT) TROPONIN T, BASELINE 5TH GEN 62(H) <=10 ng/L 11/16/2024 6:13 PM CDT [facility] Blood Venipuncture / Unknown 11/16/2024 5:26 PM CDT 11/16/2024 5:41 PM CDT Narrative [facility] - 11/16/2024 6:13 PM CDT Troponin elevated. us Mercedes D Ziehr KNIFE OPERATOR CHEMISTRY ORDERABLES Final Re sult [facility] CLIA # [id number] [id number] [place] [address] * (ABNORMAL) BRAIN NATRIURETIC PEPTIDE, BNP OR PROBNP (11/16/2024 5:26 PM CDT) PROBNP, N TERMINAL 23,933(H) 0 - 125 pg/mL 11/16/2024 6:17 PM CDT [facility] Comment: INTERPRETIVE COMMENT based on diagnosis: Diagnostic NT pro-BNP cutoffs for Heart Failure in the absence of renal failure is suggested for the following ranges <75 years: <125 pg/mL >=75 years: <450 pg/mL Exclusionary rule out cut-point for Acute Decompensated Heart Failure(ADHF) All ages: <300 pg/mL Diagnostic NT pro-BNP cutoffs for Acute Decompensated Heart Failure(ADHF) in the absence of renal failure is suggested for the following ages <50 years: > 450 pg/mL 50-75 years: > 900 pg/mL >75 years: >1800 pg/mL Blood Venipuncture / Unknown 11/16/2024 5:26 PM CDT 11/16/2024 5:41 PM CDT us Mercedes Thompson KNIFE OPERATOR CHEMISTRY ORDERABLES Final Re sult [facility] CLIA # [id number] [address] [place] [address] * (ABNORMAL) COMPREHENSIVE METABOLIC PANEL (11/16/2024 5:26 PM CDT) [facility] SODIUM 142 136 - 145 mmol/L 11/16/2024 6:19 PM CDT [facility] POTASSIUM 5.5(H) 3.5 - 5.1 mmol/L 11/16/2024 6:19 PM CDT [facility] CHLORIDE 105 98 - 107 mmol/L 11/16/2024 6:19 PM CDT [facility] CO2 23 22 - 29 mmol/L 11/16/2024 6:19 PM CDT [facility] CALCIUM 9.0 8.8 - 10.2 mg/dL 11/16/2024 6:19 PM [facility] BUN 70(H) 8 - 23 mg/dL 11/16/2024 6:19 PM [facility] CREATININE 4.08(H) 0.51 - 0.95 mg/dL 11/16/2024 6:19 PM [facility] GLUCOSE 279(H) 74 - 99 mg/dL 11/16/2024 6:19 PM [facility] TOTAL PROTEIN 7.2 6.4 - 8.3 g/dL 11/16/2024 6:19 PM [facility] ALBUMIN 3.4(L) 3.5 - 5.2 g/dL 11/16/2024 6:19 PM [facility] BILIRUBIN TOTAL 0.2 0.0 - 1.0 mg/dL 11/16/2024 6:19 PM [facility] ALKALINE PHOSPHATASE 125(H) 35 - 104 U/L 11/16/2024 6:19 PM [facility] AST 11 10 - 35 U/L 11/16/2024 6:19 PM [facility] ALT 14 <=35 U/L 11/16/2024 6:19 PM [facility] GFR 11(L) >=60 mL/min/1. 73 sq meter 11/16/2024 6:19 PM [facility] Comment:eGFR calculated with 2020 CKD-EPI equation. Vegetarian diet, extremely high or low muscle mass, and may affect results. Cystatin C with Glomerular Filtration Rate is a suitable alternative for these patients. ANION GAP 14 9 - 20 mmol/L 11/16/2024 6:19 PM [facility] Blood Venipuncture / Unknown 11/16/2024 5:26 PM CDT 11/16/2024 5:41 PM CDT us Mercedes Thompson KNIFE OPERATOR CHEMISTRY ORDERABLES Final Re sult [facility] CLIA # [id number] [address] [address] * PTT (11/16/2024 5:26 PM CDT) [facility] PTT 31.2 24.8 - 37.2 seconds 11/16/2024 5:52 PM CDT [facility] Blood Venipuncture / Unknown 11/16/2024 5:26 PM CDT 11/16/2024 5:40 PM CDT [facility] - 11/16/2024 5:52 PM CDT Therapeutic Range: Hi-level PE/DVT heparin protocol 80.1 - 95.0 sec Lo-level PE/DVT heparin protocol 70.1 - 85.0 sec Cardiac Heparin Protocol 70.1 - 100.0 sec Mercedes Thompson KNIFE OPERATOR HEMATOLOGY ORDERABLES Final R esult [facility] CLIA # [id number] [address] [place] [address] * (ABNORMAL) PROTIME-INR (11/16/2024 5:26 PM CDT) [facility] PROTIME 16.2(H) 12.7 - 14.9 Seconds 11/16/2024 5:52 PM CDT [facility] INR 1.2 0.8 - 1.2 11/16/2024 5:52 PM CDT [facility] Blood Venipuncture / Unknown 11/16/2024 5:26 PM CDT 11/16/2024 5:40 PM CDT David [facility] - 11/16/2024 5:52 PM CDT Expected Values for INR: DVT/PE Goal INR 2.5; range 2.0 - 3.0 Valve Replacement Tissue Goal INR 2.5; range 2.0 - 3.0 Valve Replacement Mechanical Goal INR 3.0; range 2.5 - 3.5 POST-ID Goal INR 2.5; range 2.0 - 3.0 or Goal INR 3.0; range 2.5 - 3.5 Atrial Fibrillation Goal INR 2.5; range 2.0 - 3.0 Ischemic Stroke Goal INR 2.5; range 2.0 - 3.0 us Mercedes Thompson NP HEMATOLOGY ORDERABLES Final R esult [facility] CLIA # [id number] [address] [place] [address] * (ABNORMAL) CBC WITH DIFFERENTIAL (11/16/2024 5:26 PM CDT) [facility] WBC 10.8 4.8 - 10.8 K/uL 11/16/2024 5:43 PM CDT [facility] RBC 3.15(L) 4.20 - 5.40 M/uL 11/16/2024 5:43 PM CDT [facility] HEMOGLOBIN 9.0(L) 12.0 - 16.0 g/dL 11/16/2024 5:43 PM CDT [facility] HEMATOCRIT 27.9(L) 36.0 - 46.0 % 11/16/2024 5:43 PM CDT [facility] MCV 88.6 84.0 - 103.0 fL 11/16/2024 5:43 PM CDT [facility] MCH 28.6 27.0 - 34.0 pg 11/16/2024 5:43 PM CDT [facility] MCHC 32.3 30.0 - 35.0 g/dL 11/16/2024 5:43 PM CDT [facility] PLATELETS 351 140 - 440 K/uL 11/16/2024 5:43 PM CDT [facility] MPV 10.6 8.9 - 12.8 fL 11/16/2024 5:43 PM CDT [facility] RDW 14.5 11.0 - 14.5 % 11/16/2024 5:43 PM CDT [facility] RDW-STDEV 46.1 37.0 - 54.0 fL 11/16/2024 5:43 PM CDT [facility] NEUTROPHILS 83(H) 42 - 75 % 11/16/2024 5:43 PM CDT [facility] LYMPHOCYTES 10(L) 24 - 44 % 11/16/2024 5:43 PM CDT [facility] MONOCYTES 6 2 - 10 % 11/16/2024 5:43 PM CDT [facility] EOSINOPHILS 1 0 - 7 % 11/16/2024 5:43 PM CDT [facility] BASOPHILS 1 0 - 1 % 11/16/2024 5:43 [facility] 1 0 - 2 % 11/16/2024 5:43 PM [facility] NEUTROP[facility]IL ABSOLUTE 8.91(H) 2.00 - 8.00 K/uL 11/16/2024 5:43 PM CDT [facility] LYMPHOCYTE ABSOLUTE 1.03(L) 1.20 - 4.00 K/uL 11/16/2024 5:43 PM [facility] MONOCYTE [facility]OL[facility] 0.63(H) 0.10 - 0.60 K/uL 11/16/2024 5:43 PM CDT [facility] EOSINOPHIL ABSOLUTE 0.07 0.00 - 0.70 K/uL 11/16/2024 5:43 PM CDT [facility] BASOPHILS ABSOLUTE 0.06 0.00 - 0.20 K/uL 11/16/2024 5:43 PM [facility] IMMATURE GRANULOCYTES ABSOLUTE 0.08 0.00 - 0.10 K/uL 11/16/2024 5:43 PM [facility] SMEAR REVIEWED: NA - Not Applicable 11/16/2024 5:43 PM [facility] Blood Venipuncture / Unknown 11/16/2024 5:26 PM CDT 11/16/2024 5:40 PM CDT us Mercedes Thompson NP HEMATOLOGY ORDERABLES Final R esult [facility]ERN[facility] # [id number] [address] [address] * EKG 12-LEAD (11/16/2024 5:12 PM CDT) 11/16/2024 5:12 PM CDT Narrative INTERFACE SYSTEM - 11/17/2024 6:46 AM CDT [address] [address] Test Date: 2024-11-16 Pat Name: YESENIA SHARPEALFRED Department: 11 Room: 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: Female 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: [id number] : 1955 Requested By: Order Number: [id number] Reading MD: Anayeli Hernandez Measurements Intervals [place] Rate: 63 P: 37 WV: 274 QRS: -9 QRSD: 102 T: 43 QT: 440 QTc: 450 Interpretive Statements Sinus rhythm with 1st degree AV block Minimal voltage criteria for LVH, may be normal variant ( [place] product ) Anteroseptal infarct, age undetermined Abnormal ECG Electronically Signed On 11-17-2024 6:46:31 CDT by Anayeli Hernandez Procedure Note Provider, Historical - 11/17/[address] [address] Test Date: 2024-11-16 Pat Name: YESENIA LEMUS Department: 11 Room: Gender: Female 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: [id number] : 1955 Requested By: Order Number: [id number] Reading : Anayeli Hernandez Measurements Intervals [place] Rate: 63 P: 37 WV: 274 QRS: -9 QRSD: 102 T: 43 QT: 440 QTc: 450 Interpretive Statements Sinus rhythm with 1st degree AV block Minimal voltage criteria for LVH, may be normal variant ( [place] M product) Anteroseptal infarct, age undetermined Abnormal ECG Electronically Signed On 11-17-2024 6:46:31 CDT by Anayeli Hernandez us Mercedes Thompson NP ECG ORDERABLES Final Result INTERFACE SYSTEM Refer to clinic/hospital department documented in this encounter Visit Diagnoses Diagnosis Acute on chronic combined systolic and diastolic heart failure (CMS/HCC)- Primary Acute on chronic combined systolic and diastolic heart failure Acute on chronic congestive heart failure, unspecified heart failure type ([facility]) Acute respiratory failure, unspecified whether with hypoxia or hypercapnia ([facility]) MANUELITO (acute kidney injury) Acute kidney failure, unspecified Essential hypertension Unspecified essential hypertension Esophageal reflux Borderline glaucoma with ocular hypertension [place] (acute kidney injury) Acute kidney failure, unspecified Hyperkalemia Hyperpotassemia Mixed hyperlipidemia Type 2 diabetes mellitus with stage 5 chronic kidney disease not on chronic dialysis, with long-term current use of insulin ([facility]) Severe obesity (BMI 35.0-39.9) with comorbidity ([facility]) Fluid overload Other fluid overload Chronic anticoagulation Encounter for long-term (current) use of anticoagulants Paroxysmal atrial fibrillation ([facility]) Atrial fibrillation Pleural effusion Unspecified pleural effusion Atherosclerosis of coronary artery without angina pectoris CKD (chronic kidney disease) stage 5, GFR less than 15 ml/min ([facility]) Chronic kidney disease, Stage V History of recent coronary artery stent placement Postsurgical percutaneous transluminal coronary angioplasty status documented in this encounter Administered Medications Inactive Administered Medications - up to 3 most recent administrations Medication Order MAR Action Action Date Dose Rate Site acetaminophen (TYLENOL) tablet 650 mg 650 mg, Oral, EVERY 6 HOURS PRN, Starting on Sun11/16/24 at 2332, Until Sun11/20/24 at 1901, Other (See Comment), See admin instructions, Routine albuterol (PROVENTIL,VENTOLIN) 2.5 mg /3 mL (0.083 %) inhalation solution 2.5 mg 2.5 mg, Inhalation, EVERY 4 HOURS PRN RESPIRATORY, Starting on Sun11/19/24 at 1357, Until Sun11/20/24 at 1901, Shortness of Breath, Wheezing, Routine aluminum - magnesium - simethicone (MYLANTA) 200-200-20 mg/5 mL oral suspension 10 mL 10 mL, Oral, EVERY 4 HOURS PRN, Starting on Sun11/20/24 at 1259, Until Sun11/20/24 at 1901, Dyspepsia, Routine Given 11/20/2024 1:16 PM CDT 10 mL amLODIPine (NORVASC) tablet 5 mg 5 mg, Oral, DAILY, First dose on Sun11/18/24 at 1430, Until Discontinued, Routine, Previous Med: amLODIPine (NORVASC) 5 mg tablet - Orig Sig - Take 5 mg by mouth daily. Given 11/20/2024 9:02 AM CDT 5 mg Given 11/19/2024 9:19 AM CDT 5 mg Given 11/18/2024 3:35 PM CDT 5 mg apixaban (ELIQUIS) tablet 5 mg 5 mg, Oral, TWO TIMES DAILY, First dose on Sun11/19/24 at 2100, Until Discontinued, Routine, Indication: Non-valvular A Fib Given 11/20/2024 9:02 AM CDT 5 mg Given 11/19/2024 9:04 PM CDT 5 mg atorvastatin (LIPITOR) tablet 40 mg 40 mg, Oral, DAILY, First dose on Sun11/17/24 at 0900, Until Discontinued, Routine, Previous Med: atorvastatin (LIPITOR) 40 mg tablet - Orig Sig - Take 1 Tablet (40 mg) by mouth daily. Given 11/20/2024 9:03 AM CDT 40 mg Given 11/19/2024 9:19 AM CDT 40 mg Given 11/18/2024 12:39 PM CDT 40 mg ceFAZolin (ANCEF,KEFZOL) 2,000 mg in sodium chloride 0.9% 50 mL IVPB (MBP) 2,000 mg, IV, ONE TIME ONLY, 1 dose, On Sun11/18/24 at 0800, Stat, IntraProcedure (IR), Antibiotic Indication: Surgical prophylaxis New Bag 11/18/2024 8:31 AM CDT 2,000 mg 118 mL/hr clopidogreL (PLAVIX) tablet 75 mg 75 mg, Oral, DAILY, First dose on Sun11/17/24 at 1315, Until Discontinued, Routine, Previous Med: clopidogreL (PLAVIX) 75 mg Tablet - Orig Sig - Take 75 mg by mouth daily. Given 11/20/2024 9:02 AM CDT 75 mg Given 11/19/2024 9:19 AM CDT 75 mg Given 11/18/2024 12:39 PM CDT 75 mg darbepoetin niki (ARANESP) 60 mcg/mL injection 60 mcg 60 mcg, subCUT, EVERY 7 DAYS, First dose on Sun11/17/24 at 1500, Until Discontinued, Routine, Reason for treatment with Epoetin/Darbepoetin: Anemia of Chronic Kidney Disease (NOT on dialysis) Given 11/17/2024 2:01 PM CDT 60 mcg Abdominal Tissue dextrose 5 % - sodium chloride 0.9 % infusion IV, at 40 mL/hr, SEE ADMIN INSTRUCTIONS, Starting on Sun11/16/24 at 2331, Until Sun11/20/24 at 1901, Routine dextrose 5 % in water 250 mL flush bag 25 mL 25 mL, IV, SEE ADMIN INSTRUCTIONS, Starting on Sun11/16/24 at 2332, Until Sun11/20/24 at 1901, Routine dextrose 5% - sodium chloride 0.45% infusion IV, at 30 mL/hr, INTRA-PROCEDURE ONCE, 1 dose, Starting on Sun11/18/24 at 0743, Until Sun11/18/24 at 0901, Routine, IntraProcedure (IR) New Bag 11/18/2024 8:29 AM CDT 30 mL/hr dextrose 50% (D50) syringe 12.5 Gram 12.5 Gram, IV, SEE ADMIN INSTRUCTIONS, Starting on Sun11/16/24 at 2331, Until Sun11/20/24 at 1901, Routine dextrose 50% (D50) syringe 25 Gram 25 Gram, IV, SEE ADMIN INSTRUCTIONS, Starting on Sun11/16/24 at 2331, Until Sun11/20/24 at 1901, Routine ezetimibe (ZETIA) tablet 10 mg 10 mg, Oral, DAILY, First dose on Sun11/17/24 at 1315, Until Discontinued, Routine, Previous Med: ezetimibe (ZETIA) 10 mg tablet - Orig Sig - Take 10 mg by mouth daily. Given 11/20/2024 9:03 AM CDT 10 mg Given 11/19/2024 9:19 AM CDT 10 mg Given 11/18/2024 12:39 PM CDT 10 mg fentaNYL PF (SUBLIMAZE) 50 mcg/mL injection 100 mcg 100 mcg, IV, INTRA-PROCEDURE ONCE, 1 dose, Starting on Sun11/18/24 at 0849, Until Sun11/18/24 at 0845, Routine Given 11/18/2024 8:45 AM CDT 100 mcg furosemide (LASIX) injection 80 mg 80 mg, IV, ONE TIME ONLY, 1 dose, On Sun11/17/24 at 0945, Routine Given 11/17/2024 10:15 AM CDT 80 mg gabapentin (NEURONTIN) capsule 100 mg 100 mg, Oral, TWO TIMES DAILY, First dose on Sun11/19/24 at 2100, Until Discontinued, Routine, Previous Med: gabapentin (NEURONTIN) 100 mg capsule - Orig Sig - Take 100 mg by mouth 2 times daily. Given 11/20/2024 9:03 AM CDT 100 mg Given 11/19/2024 9:04 PM CDT 100 mg galantamine (RAZADYNE) tablet 4 mg 4 mg, Oral, TWO TIMES DAILY WITH MEALS, First dose on Sun11/19/24 at 1700, Until Discontinued, Routine Given 11/20/2024 9:03 AM CDT 4 mg Given 11/19/2024 9:04 PM CDT 4 mg glucagon HCL 1 mg/mL injection 1 mg 1 mg, IM, SEE ADMIN INSTRUCTIONS, Starting on Sun11/16/24 at 2331, Until Sun11/20/24 at 1901, Routine heparin injection 2,000 Units 2,000 Units, See Admin Instructions, ONE TIME ONLY, 1 dose, On Sun11/19/24 at 1300, RoutineIndications:For HD machine filter clearance Given 11/19/2024 2:26 PM CDT 2,000 Units Other (Comment) heparin injection 5,000 Units 5,000 Units, subCUT, EVERY 8 HOURS, First dose on Sun11/16/24 at 2345, Until Discontinued, Routine Given 11/18/2024 9:29 PM CDT 5,000 Units Abdomen, Left Lower Quadrant Given 11/18/2024 12:42 PM CDT 5,000 Units Abdomen, Left Lower Quadrant Given 11/17/2024 8:27 PM CDT 5,000 Units A bdomen, Right Lower Quadrant hydrALAZINE (APRESOLINE) tablet 10 mg 10 mg, Oral, EVERY 8 HOURS, First dose on Sun11/18/24 at 1430, Until Discontinued, Routine, Previous Med: hydrALAZINE (APRESOLINE) 10 mg tablet - Orig Sig - Take 10 mg by mouth every 8 hours. Given 11/20/2024 1:00 PM CDT 10 mg Given 11/20/2024 5:17 AM CDT 10 mg Given 11/19/2024 9:04 PM CDT 10 mg hydrALAZINE (APRESOLINE) tablet 25 mg 25 mg, Oral, EVERY 6 HOURS PRN, Starting on Sun11/18/24 at 1425, Until Sun11/20/24 at 1901, Blood Pressure, SBP >160, DBP >100, Routine insulin glargine-yfgn injection 23 Units 23 Units (rounded from 22.575 Units = 0.25 Units/kg 90.3 kg), subCUT, DAILY AT BEDTIME, First dose (after last modification) on Sun11/20/24 at 2100, Until Discontinued, Routine insulin glargine-yfgn injection 40 Units 40 Units, subCUT, TWO TIMES DAILY, First dose on Sun11/17/24 at 0000, Until Discontinued, Routine Given 11/18/2024 9:00 PM CDT 40 Units Abdomen, Left Lower Quadrant Given 11/18/2024 12:35 PM CDT 40 Units A rm, Left Upper Given 11/17/2024 8:19 PM CDT 40 Units Ab domen, Left Lower Quadrant insulin lispro (HumaLOG,ADMELOG) injection 0-6 Units 0-6 Units, subCUT, THREE TIMES DAILY WITH MEALS, First dose on Sun11/17/24 at 0800, Until Discontinued, Routine Given 11/17/2024 5:22 PM CDT 2 Units Abdomen, Right Lower Quadrant Given 11/17/2024 11:35 AM CDT 1 Units A bdominal Tissue Given 11/17/2024 8:36 AM CDT 2 Units Ab dominal Tissue isosorbide mononitrate (IMDUR) SR 24 hour tablet 30 mg 30 mg, Oral, DAILY EARLY, First dose on Sun11/20/24 at 0600, Until Discontinued, Routine, Previous Med: isosorbide mononitrate (IMDUR) 30 mg Extended Release 24 hour tablet - Orig Sig - Take 30 mg by mouth daily in the morning. Given 11/20/2024 7:16 AM CDT 30 mg latanoprost (XALATAN) 0.005 % ophthalmic solution 1 Drop 1 Drop, Both Eyes, DAILY AT BEDTIME, First dose on Sun11/16/24 at 2330, Until Discontinued, Routine, Previous Med: latanoprost (XALATAN) 0.005 % solution - Orig Sig - INSTILL 1 DROP INTO EACH EYE EVERY EVENING Given 11/19/2024 9:05 PM CDT 1 Drop Given 11/18/2024 9:28 PM CDT 1 Drop Given 11/17/2024 8:28 PM CDT 1 Drop lidocaine PF 1% (XYLOCAINE MPF) injection 15 mL 15 mL (150 mg), Infiltration, ONE TIME ONLY, 1 dose, On Sun11/18/24 at 0800, Routine, IntraProcedure (IR) Admin by Another Clinician (Comment) 11/18/2024 8:44 AM CDT 15 mL lidocaine-EPINEPHrine (XYLOCAINE-EPI) 1 %-1:100,000 injection 15 mL 15 mL, Infiltration, ONE TIME ONLY, 1 dose, On Sun11/18/24 at 0800, Routine, IntraProcedure (IR) Admin by Another Clinician (Comment) 11/18/2024 8:45 AM CDT 15 mL melatonin tablet 3 mg 3 mg, Oral, NIGHTLY PRN, Starting on Sun11/19/24 at 1357, Until Sun11/20/24 at 1901, Insomnia, Routine metoprolol tartrate (LOPRESSOR) tablet 12.5 mg 12.5 mg, Oral, EVERY 12 HOURS, First dose on Sun11/17/24 at 2100, Until Discontinued, Routine, Previous Med: metoprolol tartrate (LOPRESSOR) 25 mg tablet - Orig Sig - Take 25 mg by mouth every 12 hours. Given 11/19/2024 9:19 AM CDT 12.5 mg Given 11/18/2024 9:28 PM CDT 12.5 mg Given 11/18/2024 12:34 PM CDT 12.5 mg metoprolol tartrate (LOPRESSOR) tablet 25 mg 25 mg, Oral, EVERY 12 HOURS, First dose (after last modification) on Sun11/19/24 at 2100, Until Discontinued, Routine, Previous Med: metoprolol tartrate (LOPRESSOR) 25 mg tablet - Orig Sig - Take 25 mg by mouth every 12 hours. Given 11/20/2024 9: 02 AM CDT 25 mg Given 11/19/2024 9:04 PM CDT 25 mg midazolam (PF) (VERSED) injection 2 mg 2 mg, IV, INTRA-PROCEDURE ONCE, 1 dose, Starting on Sun11/18/24 at 0849, Until Sun11/18/24 at 0835, Routine Given 11/18/2024 8:35 AM CDT 2 mg naloxone (NARCAN) 0.4 mg/mL injection 0.1-0.4 mg 0.1-0.4 mg, IV, SEE ADMIN INSTRUCTIONS, Starting on Sun11/16/24 at 2332, Until Sun11/20/24 at 1901, Routine ondansetron (ZOFRAN) 4 mg/2 mL injection 4 mg 4 mg, IV, EVERY 6 HOURS PRN, Starting on Sun11/19/24 at 1357, Until Sun11/20/24 at 1901, Nausea/Emesis, Routine Given 11/20/2024 11:51 AM CDT 4 mg pantoprazole (PROTONIX) tablet 40 mg 40 mg, Oral, DAILY BEFORE BREAKFAST, First dose on Sun11/17/24 at 0730, Until Discontinued, Routine, Previous Med: pantoprazole (PROTONIX) 40 mg Tablet, Delayed Release (E.C.) - Orig Sig - Take 40 mg by mouth daily. , Indication: Gastroesophageal reflux disease (GERD) Given 11/19/2024 7:06 AM CDT 40 mg Given 11/18/2024 12:39 PM CDT 40 mg Given 11/17/2024 8:34 AM CDT 40 mg prochlorperazine maleate (COMPAZINE) tablet 10 mg 10 mg, Oral, EVERY 6 HOURS PRN, Starting on Sun11/16/24 at 2333, Until Sun11/20/24 at 1901, Nausea/Emesis, Routine Given 11/20/2024 9:02 AM CDT 10 mg Given 11/18/2024 3:35 PM CDT 10 mg sennosides-docusate sodium (SENNA-S) 8.6-50 mg per tablet 1 Tablet 1 Tablet, Oral, TWO TIMES DAILY PRN, Starting on Sun11/19/24 at 1357, Until Sun11/20/24 at 1901, Constipation, Routine sodium chloride 0.9 % bolus solution 1,000 mL 1,000 mL, See Admin Instructions, ONE TIME ONLY, 1 dose, On Sun11/18/24 at 0930, at 2,000 mL/hr, Administer over 30 Minutes, Routine New Bag 11/18/2024 9:22 AM CDT 1,000 mL 2000 mL/hr Other (Comment) sodium chloride 0.9 % bolus solution 1,000 mL 1,000 mL, IV, SEE ADMIN INSTRUCTIONS, Starting on Sun11/19/24 at 1244, Until Laurence 11/20/24 at 1901, at 2,000 mL/hr, Administer over 30 Minutes, RoutineIndications:HD machine priming New Bag 11/19/2024 12:45 PM CDT 1,000 mL 2000 mL/hr sodium chloride 0.9 % flush bag 25 mL 25 mL, IV, SEE ADMIN INSTRUCTIONS, Starting on Sun11/16/24 at 2332, Until Sun11/20/24 at 1901, Routine sodium chloride flush injection 10 mL 10 mL, IV, EVERY 12 HOURS (BlD), First dose on Sun11/16/24 at 2345, Until Discontinued, Routine Given 11/20/2024 9:04 AM CDT 10 mL Given 11/19/2024 9:05 PM CDT 10 mL Given 11/19/2024 9:19 AM CDT 10 mL sodium chloride flush injection 10 mL 10 mL, IV, SEE ADMIN INSTRUCTIONS, Starting on Sun11/16/24 at 2332, Until Sun11/20/24 at 1901, Routine sodium zirconium cyclosilicate (LOKELMA) oral powder packet 10 Gram 10 Gram, Oral, EVERY 8 HOURS, 2 doses, First dose on Sun11/16/24 at 2345, Last dose on Sun11/17/24 at 0500, Routine Given 11/17/2024 5:36 AM CDT 10 Gram s Given 11/17/2024 2:14 AM CDT 10 Grams sodium zirconium cyclosilicate (LOKELMA) oral powder packet 10 Gram 10 Gram, Oral, ONE TIME ONLY, 1 dose, On Sun11/17/24 at 0945, Routine Given 11/17/2024 10:13 AM CDT 10 Grams documented in this encounter Active and Recently Administered Medications Times are shown in CDT. Scheduled Medication Order 11/18/2024 11/19/2024 11/20/2024 amLODIPine (NORVASC) tablet 5 mg 5 mg, Oral, DAILY, First dose on Sun11/18/24 at 1430, Until Discontinued, Routine, Previous Med: amLODIPine (NORVASC) 5 mg tablet - Orig Sig - Take 5 mg by mouth daily. 1535 (Given - Provider: Dari Padilla RN) 0919 (Given - Provider: XIN Coronado) 09 (Given - Provider: XIN Coronado) apixaban (ELIQUIS) tablet 5 mg 5 mg, Oral, TWO TIMES DAILY, First dose on Sun11/19/24 at 2100, Until Discontinued, Routine, Indication: Non-valvular A Fib 2103 (Given - Provider: Che Bear LPN) 09 (Given - Provider: XIN Coronado) atorvastatin (LIPITOR) tablet 40 mg 40 mg, Oral, DAILY, First dose on Sun11/17/24 at 0900, Until Discontinued, Routine, Previous Med: atorvastatin (LIPITOR) 40 mg tablet - Orig Sig - Take 1 Tablet (40 mg) by mouth daily. 1239 (Given - Provider: Dari Padilla RN) 0919 (Given - Provider: XIN Coronado) 0903 (Given - Provider: XIN Coronado) ceFAZolin (ANCEF,KEFZOL) 2,000 mg in sodium chloride 0.9% 50 mL IVPB (MBP) (COMPLETED) 2,000 mg, IV, ONE TIME ONLY, 1 dose, On Sun11/18/24 at 0800, Stat, IntraProcedure (IR), Antibiotic Indication: Surgical prophylaxis 0831 (New Bag - Provider: Frederick Perez RN)09 (Stopped - Provider: Frederick Perez RN) clopidogreL (PLAVIX) tablet 75 mg 75 mg, Oral, DAILY, First dose on Sun11/17/24 at 1315, Until Discontinued, Routine, Previous Med: clopidogreL (PLAVIX) 75 mg Tablet - Orig Sig - Take 75 mg by mouth daily. 1239 (Given - Provider: Dari Padilla RN) 0919 (Given - Provider: XIN Coronado) 09 (Given - Provider: XIN Coronado) darbepoetin niki (ARANESP) 60 mcg/mL injection 60 mcg 60 mcg, subCUT, EVERY 7 DAYS, First dose on Sun11/17/24 at 1500, Until Discontinued, Routine, Reason for treatment with Epoetin/Darbepoetin: Anemia of Chronic Kidney Disease (NOT on dialysis) dextrose 5 % - sodium chloride 0.9 % infusion IV, at 40 mL/hr, SEE ADMIN INSTRUCTIONS, Starting on Sun11/16/24 at 2331, Until Sun11/20/24 at 1901, Routine dextrose 5 % in water 250 mL flush bag 25 mL 25 mL, IV, SEE ADMIN INSTRUCTIONS, Starting on Sun11/16/24 at 2332, Until Sun11/20/24 at 1901, Routine dextrose 5% - sodium chloride 0.45% infusion (COMPLETED) IV, at 30 mL/hr, INTRA-PROCEDURE ONCE, 1 dose, Starting on Sun11/18/24 at 0743, Until Sun11/18/24 at 0901, Routine, IntraProcedure (IR) 0829 (New Bag - Provider: Frederick Perez RN)0901 (Stopped - Provider: Frederick Perez RN) dextrose 50% (D50) syringe 12.5 Gram 12.5 Gram, IV, SEE ADMIN INSTRUCTIONS, Starting on Sun11/16/24 at 2331, Until Sun11/20/24 at 1901, Routine dextrose 50% (D50) syringe 25 Gram 25 Gram, IV, SEE ADMIN INSTRUCTIONS, Starting on Sun11/16/24 at 2331, Until Sun11/20/24 at 1901, Routine ezetimibe (ZETIA) tablet 10 mg 10 mg, Oral, DAILY, First dose on Sun11/17/24 at 1315, Until Discontinued, Routine, Previous Med: ezetimibe (ZETIA) 10 mg tablet - Orig Sig - Take 10 mg by mouth daily. 1239 (Given - Provider: Dari Padilla RN) 0919 (Given - Provider: XIN Coronado) 0903 (Given - Provider: XIN Coronado) fentaNYL PF (SUBLIMAZE) 50 mcg/mL injection 100 mcg (COMPLETED) 100 mcg, IV, INTRA-PROCEDURE ONCE, 1 dose, Starting on Sun11/18/24 at 0849, Until Sun11/18/24 at 0845, Routine 0845 (Given - Provider: Frederick Perez RN) gabapentin (NEURONTIN) capsule 100 mg 100 mg, Oral, TWO TIMES DAILY, First dose on Sun11/19/24 at 2100, Until Discontinued, Routine, Previous Med: gabapentin (NEURONTIN) 100 mg capsule - Orig Sig - Take 100 mg by mouth 2 times daily. 2103 (Given - Provider: Che Bear LPN) 902 (Given - Provider: XIN Coronado) galantamine (RAZADYNE) tablet 4 mg 4 mg, Oral, TWO TIMES DAILY WITH MEALS, First dose on Sun11/19/24 at 1700, Until Discontinued, Routine 2103 (Given - Provider: Che Bear LPN) 902 (Given - Provider: XIN Coronado)1700 (Due) glucagon HCL 1 mg/mL injection 1 mg 1 mg, IM, SEE ADMIN INSTRUCTIONS, Starting on Sun11/16/24 at 2331, Until Sun11/20/24 at 1901, Routine heparin injection 2,000 Units (COMPLETED) 2,000 Units, See Admin Instructions, ONE TIME ONLY, 1 dose, On Sun11/19/24 at 1300, Routine 1426 (Given - Provider: Kimmy Biswas RN - Comment: For HD machine filter clearance) heparin injection 5,000 Units (CANCELED)(Linked Group 1) 5,000 Units, subCUT, EVERY 8 HOURS, First dose on Sun11/16/24 at 2345, Until Discontinued, Routine 0500 (Not Given - Provider: XIN España - Reason: Clarify-Other (Comment) - Comment: Pt will possible have dialysis port placement need to hold heparin subcut)1242 (Given - Provider: Dari Padilla RN)2129 (Given - Provider: Jimmy Morris RN) 0500 (Canceled Entry - Provider: Jimmy Morris RN)1300 (Not Given - Provider: XIN Coronado - Reason: Clarify-Other (Comment) - Comment: med discontinued) hydrALAZINE (APRESOLINE) tablet 10 mg 10 mg, Oral, EVERY 8 HOURS, First dose on Sun11/18/24 at 1430, Until Discontinued, Routine, Previous Med: hydrALAZINE (APRESOLINE) 10 mg tablet - Orig Sig - Take 10 mg by mouth every 8 hours. 1535 (Given - Provider: Dari Padilla RN)2128 (Given - Provider: Jimmy Morris RN) 0500 (Canceled Entry - Provider: Jimmy Morris RN - Comment: going to dialysis)1300 (Not Given - Provider: XIN Coronado - Reason: Patient off unit)2104 (Given - Provider: Che Bear LPN) 0517 (Given - Provider: Che Bear LPN)1300 (Given - Provider: XIN Coronado) insulin glargine-yfgn injection 23 Units 23 Units (rounded from 22.575 Units = 0.25 Units/kg 90.3 kg), subCUT, DAILY AT BEDTIME, First dose (after last modification) on Sun11/20/24 at 2100, Until Discontinued, Routine insulin glargine-yfgn injection 40 Units (CANCELED) 40 Units, subCUT, TWO TIMES DAILY, First dose on Sun11/17/24 at 0000, Until Discontinued, Routine 1235 (Given - Provider: Dari Padilla RN)2100 (Given - Provider: Jimmy Morris RN) 0900 (Refused - Provider: XIN Coronado) insulin lispro (HumaLOG,ADMELOG) injection 0-6 Units 0-6 Units, subCUT, THREE TIMES DAILY WITH MEALS, First dose on Sun11/17/24 at 0800, Until Discontinued, Routine 0650 (Not Given - Provider: Dari Padilla RN - Reason: Lab results / vitals - Comment: bs 148)1200 (Not Given - Provider: Dari Padilla RN - Reason: Lab results / vitals - Comment: bs 114)1600 (Not Given - Provider: Dari Padilla RN - Reason: Lab results / vitals - Comment: bs 147) 0800 (Not Given - Provider: IXN Coronado - Reason: Lab results / vitals - Comment: bg 71)1200 (Not Given - Provider: XIN Coronado - Reason: Patient off unit)1700 (Not Given - Provider: XIN Coronado - Reason: Lab results / vitals) 0800 (Not Given - Provider: XIN Coronado - Reason: Lab results / vitals)1200 (Not Given - Provider: XIN Coronado - Reason: Lab results / vitals)1700 (Due) isosorbide mononitrate (IMDUR) SR 24 hour tablet 30 mg 30 mg, Oral, DAILY EARLY, First dose on Sun11/20/24 at 0600, Until Discontinued, Routine, Previous Med: isosorbide mononitrate (IMDUR) 30 mg Extended Release 24 hour tablet - Orig Sig - Take 30 mg by mouth daily in the morning. 07 (Given - Provider: Che Bear LPN) latanoprost (XALATAN) 0.005 % ophthalmic solution 1 Drop 1 Drop, Both Eyes, DAILY AT BEDTIME, First dose on Sun11/16/24 at 2330, Until Discontinued, Routine, Previous Med: latanoprost (XALATAN) 0.005 % solution - Orig Sig - INSTILL 1 DROP INTO EACH EYE EVERY EVENING 2127 (Given - Provider: Jimmy Morris RN) 2104 (Given - Provider: Che Bear LPN) lidocaine PF 1% (XYLOCAINE MPF) injection 15 mL (COMPLETED) 15 mL (150 mg), Infiltration, ONE TIME ONLY, 1 dose, On Sun11/18/24 at 0800, Routine, IntraProcedure (IR) 0844 (Admin by Another Clinician (Comment) - Provider: Frederick Perez RN - Comment: Dr. Anderson) lidocaine-EPINEPHrine (XYLOCAINE-EPI) 1 %-1:100,000 injection 15 mL (COMPLETED) 15 mL, Infiltration, ONE TIME ONLY, 1 dose, On Sun11/18/24 at 0800, Routine, IntraProcedure (IR) 0845 (Admin by Another Clinician (Comment) - Provider: Frederick Perez RN) metoprolol tartrate (LOPRESSOR) tablet 12.5 mg (CANCELED) 12.5 mg, Oral, EVERY 12 HOURS, First dose on Sun11/17/24 at 2100, Until Discontinued, Routine, Previous Med: metoprolol tartrate (LOPRESSOR) 25 mg tablet - Orig Sig - Take 25 mg by mouth every 12 hours. 1234 (Given - Provider: Dari Paidlla RN)2127 (Given - Provider: Jimmy Morris RN) 918 (Given - Provider: XIN Coronado) metoprolol tartrate (LOPRESSOR) tablet 25 mg 25 mg, Oral, EVERY 12 HOURS, First dose (after last modification) on Sun11/19/24 at 2100, Until Discontinued, Routine, Previous Med: metoprolol tartrate (LOPRESSOR) 25 mg tablet - Orig Sig - Take 25 mg by mouth every 12 hours. 2103 (Given - Provider: Che Bear LPN) 901 (Given - Provider: XIN Coronado) midazolam (PF) (VERSED) injection 2 mg (COMPLETED) 2 mg, IV, INTRA-PROCEDURE ONCE, 1 dose, Starting on Sun11/18/24 at 0849, Until Sun11/18/24 at 0835, Routine 0835 (Given - Provider: Frederick Perez RN) naloxone (NARCAN) 0.4 mg/mL injection 0.1-0.4 mg 0.1-0.4 mg, IV, SEE ADMIN INSTRUCTIONS, Starting on Sun11/16/24 at 2332, Until Sun11/20/24 at 1901, Routine pantoprazole (PROTONIX) tablet 40 mg 40 mg, Oral, DAILY BEFORE BREAKFAST, First dose on Sun11/17/24 at 0730, Until Discontinued, Routine, Previous Med: pantoprazole (PROTONIX) 40 mg Tablet, Delayed Release (E.C.) - Orig Sig - Take 40 mg by mouth daily. , Indication: Gastroesophageal reflux disease (GERD) 0730 (Not Given - Provider: Dari Padilla RN - Reason: Strict NPO - Comment: strict NPO)1239 (Given - Provider: Dari Padilla RN - Comment: no longer NPO) 07 (Given - Provider: XIN Coronado) 0730 (Refused - Provider: XIN Coronado) sodium chloride 0.9 % bolus solution 1,000 mL (COMPLETED) 1,000 mL, See Admin Instructions, ONE TIME ONLY, 1 dose, On Sun11/18/24 at 0930, at 2,000 mL/hr, Administer over 30 Minutes, Routine 0920 (Stopped - Provider: Darlyn Espinosa RN)0922 (New Bag - Provider: Darlyn Espinosa RN - Comment: dialysis line prime)0952 (Stopped - Provider: Dari Padilla RN) sodium chloride 0.9 % bolus solution 1,000 mL 1,000 mL, IV, SEE ADMIN INSTRUCTIONS, Starting on Sun11/19/24 at 1244, Until Sun11/20/24 at 190, at 2,000 mL/hr, Administer over 30 Minutes, Routine 1245 (New Bag - Provider: Kimmy Biswas RN)1315 (Stopped - Provider: Kimmy Biswas RN) sodium chloride 0.9 % flush bag 25 mL 25 mL, IV, SEE ADMIN INSTRUCTIONS, Starting on Sun11/16/24 at 2332, Until Sun11/20/24 at 1901, Routine sodium chloride flush injection 10 mL 10 mL, IV, EVERY 12 HOURS (BlD), First dose on Sun11/16/24 at 2345, Until Discontinued, Routine 1242 (Given - Provider: Dari Padilla RN)2100 (Canceled Entry - Provider: Jimmy Morris RN) 0919 (Given - Provider: XIN Coronado)2105 (Given - Provider: Che Bear LPN) 0904 (Given - Provider: XIN Coronado) sodium chloride flush injection 10 mL 10 mL, IV, SEE ADMIN INSTRUCTIONS, Starting on Sun11/16/24 at 2332, Until Sun11/20/24 at 1901, Routine PRN Medication Order 11/18/2024 11/19/2024 11/20/2024 acetaminophen (TYLENOL) tablet 650 mg 650 mg, Oral, EVERY 6 HOURS PRN, Starting on Sun11/16/24 at 2332, Until Sun11/20/24 at 1901, Other (See Comment), See admin instructions, Routine albuterol (PROVENTIL,VENTOLIN) 2.5 mg /3 mL (0.083 %) inhalation solution 2.5 mg 2.5 mg, Inhalation, EVERY 4 HOURS PRN RESPIRATORY, Starting on Sun11/19/24 at 1357, Until Sun11/20/24 at 1901, Shortness of Breath, Wheezing, Routine aluminum - magnesium - simethicone (MYLANTA) 200-200-20 mg/5 mL oral suspension 10 mL 10 mL, Oral, EVERY 4 HOURS PRN, Starting on Sun11/20/24 at 1259, Until Sun11/20/24 at 1901, Dyspepsia, Routine 1316 (Given - Provid er: XIN Coronado) hydrALAZINE (APRESOLINE) tablet 25 mg 25 mg, Oral, EVERY 6 HOURS PRN, Starting on Sun11/18/24 at 1425, Until Sun11/20/24 at 1901, Blood Pressure, SBP >160, DBP >100, Routine hydrOXYzine HCL (ATARAX) tablet 10 mg 10 mg, Oral, THREE TIMES DAILY PRN, Starting on 11/16/24 at 2328, Until Sun11/20/24 at 1901, Itching, Routine, Previous Med: hydrOXYzine HCL (ATARAX) 10 mg tablet - Orig Sig - Take 10 mg by mouth 3 times daily as needed for Itching. melatonin tablet 3 mg 3 mg, Oral, NIGHTLY PRN, Starting on Sun11/19/24 at 1357, Until Sun11/20/24 at 1901, Insomnia, Routine ondansetron (ZOFRAN) 4 mg/2 mL injection 4 mg 4 mg, IV, EVERY 6 HOURS PRN, Starting on Sun11/19/24 at 1357, Until Sun11/20/24 at 1901, Nausea/Emesis, Routine 1151 (Given - Provid er: XIN Coronado) prochlorperazine maleate (COMPAZINE) tablet 10 mg 10 mg, Oral, EVERY 6 HOURS PRN, Starting on 11/16/24 at 2333, Until Sun11/20/24 at 1901, Nausea/Emesis, Routine 1535 (Given - Provider: Dari Padilla RN) 0902 (Given - Provider: XIN Coronado) sennosides-docusate sodium (SENNA-S) 8.6-50 mg per tablet 1 Tablet 1 Tablet, Oral, TWO TIMES DAILY PRN, Starting on Sun11/19/24 at 1357, Until Laurence 11/20/24 at 1901, Constipation, Routine Linked Groups Order Group 1: heparin injection 5,000 Units (CANCELED)Jump to med 5,000 Units, subCUT, EVERY 8 HOURS, First dose on 11/16/24 at 2345, Until Discontinued, Routine And Place Intermittent Pneumatic Compression Device (CANCELED) Routine, ONGOING, Starting on 11/16/24 at 2335, Until Specified, Where: ANTIONETTE LEGS, If calf circumference exceeds 26 inches, contact physician for alternative therapy order. Intermittent pneumatic compression devices should be utilized at least 18 hours per day. documented in this encounter Additional Health Concerns Assessment Noted Time PHQ-9 Depression Total Score: 4 11/18/19 25 12:40 AM CDT documented as of this encounter
[2024-11-26 16:56] VITALS: BP 121/86; PULSE 109; RESP 18; TEMP 36.8; O2SAT 95
--- OUTSIDE RECORDS SUMMARY | 2024-11-26 16:59 | XMS_ITS | Encounter Summary ---
Author Organization [facility] Address [address] [place] [address] Care Team Providers Care Clinical Nurse Name Role Phone Mau Terry MD Primary Care Provider [phone] Encounter Details Date Type Department Care Team (Latest Contact Info) Description 01/03/2004 Outpatient Historical [facility] [id number] [place] [address] AMBULANCE, 2 [facility] OPEN WOUND SCALP-COMPL (Primary Dx) Social History Tobacco Use Types Packs/Day Years Used Date Smoking Tobacco: Never Assessed Comments Unknown Sex and Gender Information Value Date Recorded Sex Assigned at Not on file Legal Sex Female 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
--- OUTSIDE RECORDS SUMMARY | 2024-11-26 16:59 | XMS_ITS | Encounter Summary ---
Author Organization [facility] Address [address] [place] [address] Care Team Providers Care Bezel Cutter Name Role Phone Mau Terry MD Primary Care Provider [phone] Encounter Details Date Type Department Care Team (Latest Contact Info) Description 01/28/2004 Outpatient Historical [facility] [address] 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
--- OUTSIDE RECORDS SUMMARY | 2024-11-26 16:59 | XMS_ITS | Encounter Summary ---
Author Organization [facility] Address [address] [place] [address] Care Team Providers Care Senior Javascript Developer Name Role Phone Mau Terry MD Primary Care Provider [phone] Encounter Details Date Type Department Care Team (Late st Contact Info) Description 01/19/2009 [facility]illary [facility] [address] [place] [address] Mau Terry MD [address] [place] [phone] Other Screening Mammogram Social History Tobacco Use Types Packs/Day Years Used Date Smoking Tobacco: Never Alcohol Use Standard Drinks/Week Comments No 0 (1 standard drink = 0.6 oz pur e alcohol) Comments No Sex and Gender Information Value Date Recorded Sex Assigned at Not on file 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
--- OUTSIDE RECORDS SUMMARY | 2024-11-26 16:59 | XMS_ITS | Encounter Summary ---
Author Organization [facility] Address [address] [place] [address] Care Team Providers Care Cartoon Designer Name Role Phone Mau Terry MD Primary Care Provider [phone] Encounter Details Date Type Department Care Team (Latest Contact Info) Description 08/27/2002 Outpatient Historical [facility] [address] [place] [address] [place] [address] Chelita Luna, TAP AND DIE MAKER TECHNICIAN [address] [place] [address] HYPERSOMNI W SLEEP APNEA (Primary Dx) Social History Tobacco Use Types Packs/Day Years Used Date Smoking Tobacco: Never Assessed Comments Unknown Sex and Gender Information Value Date Recorded Sex Assigned at Not on file 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
--- OUTSIDE RECORDS SUMMARY | 2024-11-26 16:59 | XMS_ITS | Encounter Summary ---
Author Organization [facility] Address [address] [place] [address] Care Team Providers Care Steamfitter Supervisor Name Role Phone Mau Terry MD Primary Care Provider [phone] Encounter Details Date Type Department Care Team (Latest Contact Info) Description 09/21/2004 Outpatient Historical [facility] Medicine [place] [address] [facility] [address] [place] [phone] Sven Kimball PA NO ADDRESS ON FILE HEADACHE (Primary Dx) Social History Tobacco Use Types Packs/Day Years Used Date Smoking Tobacco: Never Assessed Comments Unknown Sex and Gender Information Value Date Recorded Sex Assigned at Not on file Legal Sex Female 3:01 AM CHILD & ADOLESCENT PSYCHIATRIST Gender Identity Not on file Sexual Orientation Not on file documented as of this encounter Plan of Treatment Not on file documented as of this encounter Visit Diagnoses Diagnosis Headache(784.0)- Primary Headache documented in this encounter Care Teams Steamfitter Supervisor Relationship Specialty Start Date End Date Mau Terry MD [facility] [address] [place] [phone] PCP - General 02/28/06 07/12/14 documented as of this encounter
--- OUTSIDE RECORDS SUMMARY | 2024-11-26 16:59 | XMS_ITS | Encounter Summary ---
Author Organization [facility] Address [address] [place] [address] Care Team Providers Care Hospital Staff Pharmacist Name Role Phone Unavailable Primary Care Provider Unavailabl e Encounter Details Date Type Department Care Team (Late st Contact Info) Description 11/21/2024 Abstract [facility] HIM [address] [place] [phone] Provider, Abstract NO ADDRESS ON FILE Social History Tobacco Use Types Packs/Day Years Used Date Smoking Tobacco: Never Smokeless Tobacco: Never Alcohol Use Standard Drinks/Week Comments Yes 0 (1 standard drink = 0.6 oz pur e alcohol) Comments No Sex and Gender Information Value Date Recorded Sex Assigned at Not on file Legal Sex Female 12:33 PM THEATER EDUCATION TEACHER Gender Identity Not on file Sexual Orientation Not on file documented as of this encounter Plan of Treatment Upcoming Encounters Date Type Department Care Team (Late st Contact Info) Description 03/26/2025 1:20 PM THEATER EDUCATION TEACHER Office Visit [facility] Endocrinology [facility] [address] [phone] Carrie Osuna PA [address] [phone] documented as of this encounter Procedures Procedure Name Priority Date/Time Associated Diagnosis Comments PROTIME-INR Routine 10/20/2024 documented in this encounter Results * PROTIME-INR (10/20/2024) ABSTRACTED PROTIME 13.2 ABSTRACTED INR 0.94 Blood 10/20/2024 us Abstract Provider HEMATOLOGY ORDERABLES Final Re sult documented in this encounter Visit Diagnoses Not on filedocumented in this encounter Additional Health Concerns Assessment Noted Time PHQ-9 Depression Total Score: 4 11/18/19 25 12:40 AM CDT documented as of this encounter
--- OUTSIDE RECORDS SUMMARY | 2024-11-26 16:59 | XMS_ITS | Encounter Summary ---
Author Organization [facility] Address [address] [place] [address] Care Team Providers Care Commercial Account Manager Name Role Phone Mau Terry MD Primary Care Provider [phone] Encounter Details Date Type Department Care Team (Late st Contact Info) Description 01/03/2004 Inpatient Historical [facility] Alejo Burton MD [address] [address] CLOSE SKULL BASE FX/BRF COMA (CMS/HCC) (Primary Dx) Social History Tobacco Use Types Packs/Day Years Used Date Smoking Tobacco: Never Assessed Comments Unknown Sex and Gender Information Value Date Recorded Sex Assigned at Not on file Legal Sex Female 3:01 AM INTELLIGENCE CONSULTANT Gender Identity Not on file Sexual [...] consciousness documented in this encounter Care Teams Commercial Account Manager Relationship Specialty Start Date End Date Mau Terry MD [address] [place] [phone] PCP - General 02/28/06 07/12/14 documented as of this encounter
--- OUTSIDE RECORDS SUMMARY | 2024-11-26 16:59 | XMS_ITS | Encounter Summary ---
Author Organization [facility] Address [address] [place] [address] Care Team Providers Care Retail Receiving Clerk Name Role Phone Mau Terry MD Primary Care Provider [phone] Encounter Details Date Type Department Care Team (Late st Contact Info) Description 04/26/2007 Outpatient [facility] Breast [facility] [address] [place] [address] Mau Terry MD [address] [place] [phone] Social History Tobacco Use Types Packs/Day Years Used Date Smoking Tobacco: Never Assessed Comments Unknown Sex and Gender Information Value Date Recorded Sex Assigned at Not on file Legal Sex Female 3: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
--- OUTSIDE RECORDS SUMMARY | 2024-11-26 16:59 | XMS_ITS | Encounter Summary ---
Author Organization [facility] Address [address] [place] [address] Care Team Providers Care Family Psychologist Name Role Phone Mau Terry MD Primary Care Provider [phone] Encounter Details Date Type Department Care Team (Late st Contact Info) Description 05/16/[address] [facility] [address] [facility] [address] [place] [address] Social History Tobacco Use Types Packs/Day Years Used Date Smoking Tobacco: Never Assessed Comments Unknown Sex and Gender Information Value Date Recorded Sex Assigned at Not on file Legal Sex Female 3:01 AM NON GARMENT SEWING MACHINE OPERATOR Gender Identity Not on file Sexual Orientation Not on file documented as of this encounter Plan of Treatment Not on file documented as of this encounter Visit Diagnoses Not on filedocumented in this encounter Care Teams Family Psychologist Relationship Specialty Start Date End Date Mau Terry MD [facility] [address] [place] [phone] PCP - General 02/28/06 07/12/14 documented as of this encounter
--- OUTSIDE RECORDS SUMMARY | 2024-11-26 16:59 | XMS_ITS | Encounter Summary ---
Author Organization [facility] Address [address] [place] [address] Care Team Providers Care Diecast Machine Operator Name Role Phone Mau Terry MD Primary Care Provider [phone] Encounter Details Date Type Department Care Team (Late st Contact Info) Description 05/30/2007 Outpatient [facility] Breast Center [facility] [address] [place], [place] [address] Mau Terry MD [address] [place] [phone] Social History Tobacco Use Types Packs/Day Years Used Date Smoking Tobacco: Never Assessed Comments Unknown Sex and Gender Information Value Date Recorded Sex Assigned at Not on file Legal Sex Female 3:01 AM DRIER BELT CONVEYOR Gender Identity Not on file Sexual Orientation Not on file documented as of this encounter Plan of Treatment Not on file documented as of this encounter Procedures Procedure Name Priority Date/Time Associated Diagnosis Comments MAMMO SCRN TO DIAG BILAT Routine 06/19/2007 9:48 AM DRIER BELT CONVEYOR documented in this encounter Results * MAMMO SCRN TO DIAG BILAT (06/19/2007 9:48 AM DRIER BELT CONVEYOR) Anatomical Region Laterality Modality Breast Other Narrative 06/19/2007 9:48 AM DRIER BELT CONVEYOR Report Available in [facility] Procedure Note 05/25/2008 Report Available in [facility] us Mau Terry MD MAMMO ORDERABLES Final Result documented in this encounter Visit Diagnoses Not on filedocumented in this encounter Care Teams Diecast Machine Operator Relationship Specialty Start Date End Date Mau Terry MD [address] [place] [phone] PCP - General 02/28/06 07/12/14 documented as of this encounter
--- OUTSIDE RECORDS SUMMARY | 2024-11-26 16:59 | XMS_ITS | Encounter Summary ---
Author Organization [facility] Address [address] [place] [address] Care Team Providers Care Mortgage Servicing Specialist Name Role Phone Unavailable Primary Care Provider Unavailabl e Encounter Details Date Type Department Care Team (Late st Contact Info) Description 11/20/2024 Orders Only [facility] HIM [address] [place] [phone] Provider, Abstract NO ADDRESS ON FILE Social History Tobacco Use Types Packs/Day Years Used Date Smoking Tobacco: Never Smokeless Tobacco: Never Alcohol Use Standard Drinks/Week Comments Yes 0 (1 standard drink = 0.6 oz pur e alcohol) Comments No Sex and Gender Information Value Date Recorded Sex Assigned at Not on file Legal Sex Female 12:33 PM CHRISTIAN SCIENCE NURSE Gender Identity Not on file Sexual Orientation Not on file documented as of this encounter Plan of Treatment Upcoming Encounters Date Type Department Care Team (Late st Contact Info) Description 03/26/2025 1:20 PM CHRISTIAN SCIENCE NURSE Office Visit [facility] Endocrinology [facility] [address] [phone] Carrie Osuna PA [address] [phone] documented as of this encounter Procedures Procedure Name Priority Date/Time Associated Diagnosis Comments COMPREHENSIVE METABOLIC PANEL Routine 11/13/2024 10:23 AM CDT COMPREHENSIVE METABOLIC PANEL Routine 11/11/2024 10:29 AM CDT COMPREHENSIVE METABOLIC PANEL Routine 11/10/2024 10:21 AM CDT COMPREHENSIVE METABOLIC PANEL Routine 11/06/2024 10:26 AM CDT COMPREHENSIVE METABOLIC PANEL Routine 11/05/2024 10:27 AM CDT COMPREHENSIVE METABOLIC PANEL Routine 11/04/2024 10:28 AM CDT COMPREHENSIVE METABOLIC PANEL Routine 10/30/2024 10:20 AM CDT documented in this encounter Results * COMPREHENSIVE METABOLIC PANEL (11/13/2024 10:23 AM CDT) Blood us Abstract Provider CHEMISTRY ORDERABLES Final Res ult * COMPREHENSIVE METABOLIC PANEL (11/11/2024 10:29 AM CDT) Blood us Abstract Provider CHEMISTRY ORDERABLES Final Res ult * COMPREHENSIVE METABOLIC PANEL (11/10/2024 10:21 AM CDT) Blood us Abstract Provider CHEMISTRY ORDERABLES Final Res ult * COMPREHENSIVE METABOLIC PANEL (11/06/2024 10:26 AM CDT) Blood us Abstract Provider CHEMISTRY ORDERABLES Final Res ult * COMPREHENSIVE METABOLIC PANEL (11/05/2024 10:27 AM CDT) Blood us Abstract Provider CHEMISTRY ORDERABLES Final Res ult * COMPREHENSIVE METABOLIC PANEL (11/04/2024 10:28 AM CDT) Blood us Abstract Provider CHEMISTRY ORDERABLES Final Res ult * COMPREHENSIVE METABOLIC PANEL (10/30/2024 10:20 AM CDT) Blood us Abstract Provider CHEMISTRY ORDERABLES Final Res ult documented in this encounter Visit Diagnoses Not on filedocumented in this encounter Additional Health Concerns Assessment Noted Time PHQ-9 Depression Total Score: 4 11/18/19 25 12:40 AM CDT documented as of this encounter
--- OUTSIDE RECORDS SUMMARY | 2024-11-26 16:59 | XMS_ITS | Encounter Summary ---
Author Organization [facility] Address [address] [place] [address] Care Team Providers Care Assistant Manager Of Operations Name Role Phone Mau Terry MD Primary Care Provider Encounter Details Date Type Department Care Team (Latest Contact Info) Description 07/08/2002 Outpatient Historical [facility] Ear, Nose and Th[facility]at [address] [place] [phone] [facility] MD NO ADDRESS ON FILE DISORDERS OF MASTOID NEC (Primary Dx) Social History Tobacco Use Types Packs/Day Years Used Date Smoking Tobacco: Never Assessed Comments Unknown Sex and Gender Information Value Date Recorded Sex Assigned at Not on file Legal Sex Female 3:01 AM INSTRUMENT AND CONTROLS TECHNICIAN Gender Identity Not on file Sexual Orientation Not on file documented as of this encounter Plan of Treatment Not on file documented as of this encounter Visit Diagnoses Diagnosis Other disorder of mastoid- Primary documented in this encounter Care Teams Assistant Manager Of Operations Relationship Specialty Start Date End Date Mau Terry MD [address] [place] [phone] PCP - General 02/28/06 07/12/14 documented as of this encounter
--- OUTSIDE RECORDS SUMMARY | 2024-11-26 16:59 | XMS_ITS | Encounter Summary ---
Author Organization [facility] Address [address] [place] [address] Care Team Providers Care Fuel Handler Name Role Phone Mau Terry MD Primary Care Provider [phone] Encounter Details Date Type Department Care Team (Late st Contact Info) Description 06/20/2002 Outpatient Historical [facility] 06 Jonh Fox Jr., MD [address] [place] [address] Social History Tobacco Use Types Packs/Day Years Used Date Smoking Tobacco: Never Assessed Comments Unknown Sex and Gender Information Value Date Recorded Sex Assigned at Not on file Legal Sex Female 3:01 AM BINGO CLERK Gender Identity Not on file Sexual Orientation Not on file documented as of this encounter Plan of Treatment Not on file documented as of this encounter Visit Diagnoses Not on filedocumented in this encounter Care Teams Fuel Handler Relationship Specialty Start Date End Date Mau Terry MD [address] [place] [phone] PCP - General 02/28/06 07/12/14 documented as of this encounter
--- OUTSIDE RECORDS SUMMARY | 2024-11-26 16:59 | XMS_ITS | Encounter Summary ---
Author Organization [facility] Address [address] [place] [address] Care Team Providers Care Credit Risk Modeler Name Role Phone Mau Terry MD Primary Care Provider [phone] Encounter Details Date Type Department Care Team (Latest Contact Info) Description 01/03/2004 Outpatient Historical [facility] [address] [place] [address] AMBULANCE, [facility] CONCUSSION W LOC UP TO 30 MIN (Primary Dx) Social History Tobacco Use Types Packs/Day Years Used Date Smoking Tobacco: Never Assessed Comments Unknown Sex and Gender Information Value Date Recorded Sex Assigned at Not on file Legal Sex Female 3:01 AM AUTOBODY TECHNICIAN Gender Identity Not on file Sexual Orientation Not on file documented as of this encounter Plan of Treatment Not on file documented as of this encounter Visit Diagnoses Diagnosis Concussion with loss of consciousness of 30 minutes or less- Primary documented in this encounter Care Teams Credit Risk Modeler Relationship Specialty Start Date End Date Mau Terry MD [address] [place] [phone] PCP - General 02/28/06 07/12/14 documented as of this encounter
--- OUTSIDE RECORDS SUMMARY | 2024-11-26 16:59 | XMS_ITS | Encounter Summary ---
Author Organization [facility] Address [address] [place] [address] Care Team Providers Care Success Coach Name Role Phone Unavailable Primary Care Provider Unavailabl e Encounter Details Date Type Department Care Team (Late st Contact Info) Description 07/30/2020 Ancillary Orders 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 Clinical correlation recommended. [id number] Narrative Procedure Note Luz Alarcon MD - [...] of the [facility].. Clinical correlation recommended. [id number] Radha Suarez REHABILITATION THERAPY AIDE DIAGNOSTIC IMAGING ORDERABLES F inal Result documented in this encounter Visit Diagnoses Diagnosis Pain in left hand Pain in left hand documented in this encounter
--- OUTSIDE RECORDS SUMMARY | 2024-11-26 16:59 | XMS_ITS | Encounter Summary ---
Author Organization [facility] Address [address] [place] [address] Care Team Providers Care Director Of Exhibits Name Role Phone Mau Terry MD Primary Care Provider [phone] Encounter Details Date Type Department Care Team (Latest Contact Info) Description 07/31/2002 Outpatient Historical [facility] Jonh Fox Jr., MD [address] [place] [address] FEMALE STRESS INCONTINENCE (Primary Dx); ALLERGIC RHINITIS NOS; HEARING LOSS NOS; SLEEP DISTURBANCES NEC Social History Tobacco Use Types Packs/Day Years Used Date Smoking Tobacco: Never Assessed Comments Unknown Sex and Gender Information Value Date Recorded Sex Assigned at Not on file 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
--- OUTSIDE RECORDS SUMMARY | 2024-11-26 16:59 | XMS_ITS | Encounter Summary ---
Author Organization [facility] Address [address] [place] [address] Care Team Providers Care Text Transcriber Name Role Phone Mau Terry MD Primary Care Provider [phone] Encounter Details Date Type Department Care Team (Latest Contact Info) Description 08/12/2002 Outpatient Historical [facility] Cardiology- [place] [address] [place] [address] Richard Cantor MD NO ADDRESS ON FILE PALPITATIONS (Primary Dx); PRECORDIAL PAIN Social History Tobacco Use Types Packs/Day Years Used Date Smoking Tobacco: Never Assessed Comments Unknown Sex and Gender Information Value Date Recorded Sex Assigned at Not on file 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
--- OUTSIDE RECORDS SUMMARY | 2024-11-26 16:59 | XMS_ITS | Encounter Summary ---
Author Organization [facility] Address [address] [place] [address] Care Team Providers Care Yarn Weight And Strength Tester Name Role Phone Mau Terry MD Primary Care Provider [phone] Encounter Details Date Type Department Care Team (Latest Contact Info) Description 03/03/2004 Outpatient Historical [facility] [address] 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
--- OUTSIDE RECORDS SUMMARY | 2024-11-26 16:59 | XMS_ITS | Encounter Summary ---
Author Organization 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
--- OUTSIDE RECORDS SUMMARY | 2024-11-26 16:59 | XMS_ITS | Encounter Summary ---
Author Organization [facility] Address [address] [place] [address] Care Team Providers Care Home And School Visitor Name Role Phone Mau Terry MD Primary Care Provider [phone] Encounter Details Date Type Department Care Team (Latest Contact Info) Description 10/03/2006 Outpatient Historical [facility] Medicine-[place] [address] [place] [address] Mau Terry MD [address] [place] [phone] Unspecified Essential Hypertension (Primary Dx); Unspecified Infective Otitis Externa; Irritable Bowel Syndrome; Lateral Epicondylitis Social History Tobacco Use Types Packs/Day Years Used Date Smoking Tobacco: Never Assessed Comments Unknown Sex and Gender Information Value Date Recorded Sex Assigned at Not on file 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
--- OUTSIDE RECORDS SUMMARY | 2024-11-26 16:59 | XMS_ITS | Encounter Summary ---
Author Organization [facility] Address [address] [place] [address] Care Team Providers Care Automatic Clipper And Stripper Name Role Phone Mau Terry MD Primary Care Provider [phone] Encounter Details Date Type Department Care Team (Latest Contact Info) Description 01/13/2004 Outpatient Historical [facility] Medicine [place] [address] [facility] [address] [place] [phone] Sven Kimball, PA NO ADDRESS ON FILE HEAD INJURY UNSPECIFIED (Primary Dx); HEADACHE; NAUSEA ALONE; OTHER MALAISE AND FATIGUE Social History Tobacco Use Types Packs/Day Years Used Date Smoking Tobacco: Never Assessed Comments Unknown Sex and Gender Information Value Date Recorded Sex Assigned at Not on file Legal Sex Female 3:01 AM DRAPERY HAND Gender Identity Not on file Sexual Orientation Not on file documented as of this encounter Plan of Treatment Not on file documented as of this encounter Visit Diagnoses Diagnosis Head injury, unspecified- Primary Headache(784.0) Headache Nausea alone Other malaise and fatigue documented in this encounter Care Teams Automatic Clipper And Stripper Relationship Specialty Start Date End Date Mau Terry MD [address] [place] [phone] PCP - General 02/28/06 07/12/14 documented as of this encounter
--- OUTSIDE RECORDS SUMMARY | 2024-11-26 16:59 | XMS_ITS | Encounter Summary ---
Author Organization [facility] Address [address] [place] [address] Care Team Providers Care Leak Detector Name Role Phone Unavailable Primary Care Provider Unavailabl e Encounter Details Date Type Department Care Team (Late st Contact Info) Description 11/26/2024 Orders Only [facility] HIM [address] [place] [phone] Provider, Abstract NO ADDRESS ON FILE Social History Tobacco Use Types Packs/Day Years Used Date Smoking Tobacco: Never Smokeless Tobacco: Never Alcohol Use Standard Drinks/Week Comments Yes 0 (1 standard drink = 0.6 oz pur e alcohol) Comments No Sex and Gender Information Value Date Recorded Sex Assigned at Not on file Legal Sex Female 12:33 PM MANAGER PRODUCE Gender Identity Not on file Sexual Orientation Not on file documented as of this encounter Plan of Treatment Upcoming Encounters Date Type Department Care Team (Late st Contact Info) Description 03/26/2025 1:20 PM MANAGER PRODUCE Office Visit [facility] Endocrinology [facility] [address] [address] Carrie Osuna PA [address] [address] documented as of this encounter Procedures Procedure Name Priority Date/Time Associated Diagnosis Comments COMPREHENSIVE METABOLIC PANEL Routine 11/15/2024 10:55 AM CDT LEFT HEART CATH Routine 10/27/2024 10:56 AM CDT COMPREHENSIVE METABOLIC PANEL Routine 10/17/2024 10:55 AM CDT documented in this encounter Results * COMPREHENSIVE METABOLIC PANEL (11/15/2024 10:55 AM CDT) Blood us Abstract Provider CHEMISTRY ORDERABLES Final Res ult * LEFT HEART CATH (10/27/2024 10:56 AM CDT) us Abstract Provider CUP CATH ORDERABLES Final Resu lt * COMPREHENSIVE METABOLIC PANEL (10/17/2024 10:55 AM CDT) Blood us Abstract Provider CHEMISTRY ORDERABLES Final Res ult documented in this encounter Visit Diagnoses Not on filedocumented in this encounter Additional Health Concerns Assessment Noted Time PHQ-9 Depression Total Score: 4 11/18/19 25 12:40 AM CDT documented as of this encounter
--- OUTSIDE RECORDS SUMMARY | 2024-11-26 16:59 | XMS_ITS | Encounter Summary ---
Author Organization [facility] Address [address] [place] [address] Care Team Providers Care Hyperbaric Tech Name Role Phone Mau Terry MD Primary Care Provider [phone] Encounter Details Date Type Department Care Team (Late st Contact Info) Description 08/27/2002 Outpatient Historical [facility] [address] [place] [address] [place] [address] Jonh Fox Jr., MD [address] [place] [phone] RESPIRATORY ABNORM NEC (Primary Dx) Social History Tobacco Use Types Packs/Day Years Used Date Smoking Tobacco: Never Assessed Comments Unknown Sex and Gender Information Value Date Recorded Sex Assigned at Not on file 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
--- OUTSIDE RECORDS SUMMARY | 2024-11-26 16:59 | XMS_ITS | Encounter Summary ---
Author Organization [facility] Address [address] [place] [address] Care Team Providers Care Crossing Tender Name Role Phone Mau Terry MD Primary Care Provider [phone] Encounter Details Date Type Department Care Team (Latest Contact Info) Description 01/19/2004 Outpatient Historical [facility] Medicine- [place] [address] [facility] [address] [place] [address] Russell Madrid MD [address] [place] [phone] HYPERTENSION NOS (Primary Dx) Social History Tobacco Use Types Packs/Day Years Used Date Smoking Tobacco: Never Assessed Comments Unknown Sex and Gender Information Value Date Recorded Sex Assigned at Not on file 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
--- OUTSIDE RECORDS SUMMARY | 2024-11-26 16:59 | XMS_ITS | Encounter Summary ---
Author Organization [facility] Address [address] [place] [address] Care Team Providers Care Painting Instructor Name Role Phone Mau Terry MD Primary Care Provider [phone] Encounter Details Date Type Department Care Team (Late st Contact Info) Description 01/19/2004 Outpatient Historical [facility] General and Trauma Surgery-[address] [place] [address] Alejo Burton MD [address] [facility] [address] [place] [phone] LATE EFFEC SKULL/FACE FX (Primary Dx); HYPERTENSION NOS; OTHER MALAISE AND FATIGUE Social History Tobacco Use Types Packs/Day Years Used Date Smoking Tobacco: Never Assessed Comments Unknown Sex and Gender Information Value Date Recorded Sex Assigned at Not on file 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
--- OUTSIDE RECORDS SUMMARY | 2024-11-26 16:59 | XMS_ITS | Encounter Summary ---
Author Organization [facility] Address [address] [place] [address] Care Team Providers Care Social Worker Palliative Care Name Role Phone Mau Terry MD Primary Care Provider [phone] Encounter Details Date Type Department Care Team (Latest Contact Info) Description 02/16/2004 Outpatient Historical 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 Gender Identity Not on file Sexual Orientation Not on file documented as of this encounter Plan of Treatment Not on file documented as of this encounter Visit Diagnoses Diagnosis Other closed skull fracture with subarachnoid, subdural, and extradural hemorrhage, unspecified state of consciousness- Primary Dizziness and giddiness Unspecified essential hypertension documented in this encounter Care Teams Social Worker Palliative Care Relationship Specialty Start Date End Date Mau Terry MD [address] [place] [phone] PCP - General 02/28/06 07/12/14 documented as of this encounter
--- OUTSIDE RECORDS SUMMARY | 2024-11-26 16:59 | XMS_ITS | Encounter Summary ---
Author Organization [facility] Address [address] [place] [address] Care Team Providers Care Manager Privacy Name Role Phone Mau Terry MD Primary Care Provider [phone] Encounter Details Date Type Department Care Team (Latest Contact Info) Description 11/18/2002 Outpatient Historical [facility] Ear, Nose and Throat [address] [place] 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
--- OUTSIDE RECORDS SUMMARY | 2024-11-26 16:59 | XMS_ITS | Encounter Summary ---
Author Organization [facility] Address [address] [place] [address] Care Team Providers Care Toe Former Name Role Phone Mau Terry MD Primary Care Provider [phone] Encounter Details Date Type Department Care Team (Latest Contact Info) Description 01/28/2004 Outpatient [facility] [address] [place] [address] [facility] [address] [place] [address] Jose Tatum MD [address] [place] [address] AFT CARE HEAL TRAUM FRAC OTHER BONE (Primary Dx) Social History Tobacco Use Types Packs/Day Years Used Date Smoking Tobacco: Never Assessed Comments Unknown Sex and Gender Information Value Date Recorded Sex Assigned at Not on file 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
--- OUTSIDE RECORDS SUMMARY | 2024-11-26 16:59 | XMS_ITS | Encounter Summary ---
Author Organization [place] [employer], [facility] Address [address] [place] [address] Phone Care Team Providers Care Ventilating Equipment Installer Name Role Phone SerafinjeriJose Primary Care Provider [phone] Reason for Visit * Reason Onset Date Comments No Show Appt 11/24/2024 Encounter Details Date Type Department Care Team (Late st Contact Info) Description 11/24/2024 Telephone [place] [facility] [employer] [employer], [facility] [address] [place] [address] Tae Rosales MD [address] [place] [address] Social History Tobacco Use Types [...] encounter Miscellaneous Notes * Telephone Encounter - Holly Rivas - 11/24/2024 1:53 PM CDT Left message requesting call back to r/s pt's no show 11/20 appt documented in this encounter Plan of Treatment Not on file documented as of this encounter Procedures Procedure Name Priority Date/Time Associated Diagnosis Comments URINE CLEARANCE Routine 11/24/2024 POST CHEMISTRY Routine 11/24/2024 PATIENT INFORMATION Routine 11/24/2024 documented in this encounter Results * POST CHEMISTRY (11/24/2024) BUN Post Dialysis 9 6 - 19 mg/dL [facility] 11/24/2024 11/26/2024 11: 52 AM CDT Narrative [facility] - 11/26/2024 Unless otherwise specified, test(s) performed at: [facility], [address] [place] [id number] [address] OPERATOR: Bernard Milan M.D. For any questions, please call customer service at FREQUENCY:MONTHLY Resulting Agency Comment Specimen source: Plasma Tae Rosales MD LAB BLOOD ORDERABLES Final Result Performing Organization Address [facility] de Phone Number [employer] See order comments or contact performing lab Unknown, [place] * (ABNORMAL) URINE CLEARANCE (11/24/2024) Urea Nitrogen, Urine Timed 355 mg/dL [facility] Urea Nitrogen, Urine 24 Hr 1.8(L) 12.0 - 20.0 g/24 hr [facility] Creatinine, Urine Timed 83.5 mg/dL [facility] Creatinine, 24H Ur 0.4(L) 0.5 - 1.6 g/24 hr [facility] 11/24/2024 11/25/2024 12: 20 PM CDT Narrative [facility] - 11/25/2024 Unless otherwise specified, test(s) performed at: [facility], [address] [place] [id number] [address] OPERATOR: Bernard Milan M.D. For any questions, please call customer service at FREQUENCY:MONTHLY Resulting Agency Comment Specimen source: Urine Tae Rosales MD LAB URINE ORDERABLES Final Result Performing Organization Address [facility] de Phone Number [employer] See order comments or contact performing lab Unknown, [place] * PATIENT INFORMATION (11/24/2024) Patient Weight 86.3 [facility] Patient Height 160.0 [facility] Amputee Status NO [facility] Amputee Parts NONE [facility] Urine Volume 500 [facility] Collection Interval, Ur 24.0 [facility] 11/24/2024 11/24/2024 Narrative [facility] - 11/25/2024 Unless otherwise specified, test(s) performed at: [facility], [address] [place], [place] [id number] [place] OPERATOR: Bernard Milan M.D. For any questions, please call customer service at FREQUENCY:MONTHLY Resulting Agency Comment Specimen source: PD Fluid us Tae Rosales MD LAB BLOOD ORDERABLES Final Result [facility] See order comments or contact performing lab Unknown, [place] documented in this encounter Visit Diagnoses Not on filedocumented in this encounter Care Teams Ventilating Equipment Installer Relationship Specialty Start Date End Date Jose Bah [address] [facility] [address] [place], [place] [phone] PCP - General 12/07/23 documented as of this encounter
--- OUTSIDE RECORDS SUMMARY | 2024-11-26 16:59 | XMS_ITS | Encounter Summary ---
Author Organization [facility] Address [address] [place] [address] Care Team Providers Care Location Director Name Role Phone Mau Terry MD Primary Care Provider [phone] Encounter Details Date Type Department Care Team (Latest Contact Info) Description 06/19/2002 Outpatient Historical [facility] Ruddy Calloway, Jonh Howell MD [address] [place] [address] URIN TRACT INFECTION NOS (Primary Dx); LUMP OR MASS IN BREAST; SLEEP DISTURBANCES NEC; ABNORM ELECTROCARDIOGRAM Social History Tobacco Use Types Packs/Day Years Used Date Smoking Tobacco: Never Assessed Comments Unknown Sex and Gender Information Value Date Recorded Sex Assigned at Not on file 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
--- OUTSIDE RECORDS SUMMARY | 2024-11-26 16:59 | XMS_ITS | Encounter Summary ---
Author Organization [facility] Address [address] [place] [address] Care Team Providers Care Community Organization Director Name Role Phone Mau Terry MD Primary Care Provider [phone] Encounter Details Date Type Department Care Team (Late st Contact Info) Description 06/19/2002 Outpatient Historical [facility] Jonh Fox Jr., MD [address] [place] [address] Social History Tobacco Use Types Packs/Day Years Used Date Smoking Tobacco: Never Assessed Comments Unknown Sex and Gender Information Value Date Recorded Sex Assigned at Not on file Legal Sex Female 3:01 AM FUR DRESSING SUPERVISOR Gender Identity Not on file Sexual Orientation Not on file documented as of this encounter Plan of Treatment Not on file documented as of this encounter Visit Diagnoses Not on filedocumented in this encounter Care Teams Community Organization Director Relationship Specialty Start Date End Date Mau Terry MD [address] [place] [phone] PCP - General 02/28/06 07/12/14 documented as of this encounter
--- OUTSIDE RECORDS SUMMARY | 2024-11-26 16:59 | XMS_ITS | Encounter Summary ---
Author Organization [facility] Address [address] [place] [address] Care Team Providers Care Petroleum Terminal Plant Operator Name Role Phone Mau Terry MD Primary Care Provider [phone] Encounter Details Date Type Department Care Team (Latest Contact Info) Description 02/19/2004 Outpatient Historical [facility] Internal Medicine- [place] [address] [facility] [facility] [address] [place] [address] Russell Madrid MD [address] [place] [phone] HYPERTENSION NOS (Primary Dx) Social History Tobacco Use Types Packs/Day Years Used Date Smoking Tobacco: Never Assessed Comments Unknown Sex and Gender Information Value Date Recorded Sex Assigned at Not on file Legal Sex Female 3:01 AM CLINICAL TRIAL ASSOCIATE Gender Identity Not on file Sexual Orientation Not on file documented as of this encounter Plan of Treatment Not on file documented as of this encounter Visit Diagnoses Diagnosis Unspecified essential hypertension- Primary documented in this encounter Care Teams Petroleum Terminal Plant Operator Relationship Specialty Start Date End Date Mau Terry MD [address] [place] [phone] PCP - General 02/28/06 07/12/14 documented as of this encounter
--- OUTSIDE RECORDS SUMMARY | 2024-11-26 16:59 | XMS_ITS | Encounter Summary ---
Author Organization [facility] Address [address] [place] [address] Care Team Providers Care Pickers Material Handlers Name Role Phone Unavailable Primary Care Provider Unavailabl e Encounter Details Date Type Department Care Team (Late st Contact Info) Description 11/20/2024 Abstract [facility] HIM [address] [place] [phone] Provider, Abstract NO ADDRESS ON FILE Social History Tobacco Use Types Packs/Day Years Used Date Smoking Tobacco: Never Smokeless Tobacco: Never Alcohol Use Standard Drinks/Week Comments Yes 0 (1 standard drink = 0.6 oz pur e alcohol) Comments No Sex and Gender Information Value Date Recorded Sex Assigned at Not on file Legal Sex Female 12:33 PM RN ELIGIBILITY Gender Identity Not on file Sexual Orientation Not on file documented as of this encounter Plan of Treatment Upcoming Encounters Date Type Department Care Team (Late st Contact Info) Description 03/26/2025 1:20 PM RN ELIGIBILITY Office Visit [facility] Endocrinology [facility] [address] [phone] Carrie Osuna PA [address] [facility] [address] [place] [phone] documented as of this encounter Procedures Procedure Name Priority Date/Time Associated Diagnosis Comments HEMOGLOBIN A1C Routine 11/11/2024 HEMOGLOBIN A1C Routine 11/10/2024 PROTIME-INR Routine 11/01/2024 documented in this encounter Results * HEMOGLOBIN A1C (11/11/2024) ABSTRACTED HGB A1C 7.9 % Blood 11/11/2024 us Abstract Provider CHEMISTRY ORDERABLES Final Res ult * HEMOGLOBIN A1C (11/10/2024) ABSTRACTED HGB A1C 7.9 % Blood 11/10/2024 us Abstract Provider CHEMISTRY ORDERABLES Final Res ult * PROTIME-INR (11/01/2024) ABSTRACTED PROTIME 14.8 ABSTRACTED INR 1.08 Blood 11/01/2024 us Abstract Provider HEMATOLOGY ORDERABLES Final Re sult documented in this encounter Visit Diagnoses Not on filedocumented in this encounter Additional Health Concerns Assessment Noted Time PHQ-9 Depression Total Score: 4 11/18/19 25 12:40 AM CDT documented as of this encounter
--- OUTSIDE RECORDS SUMMARY | 2024-11-26 16:59 | XMS_ITS | Encounter Summary ---
Author Organization [facility] Address [address] [place] [address] Care Team Providers Care Groundsman Name Role Phone Mau Terry MD Primary Care Provider [phone] Encounter Details Date Type Department Care Team (Late st Contact Info) Description 08/27/[address] [address] Social History Tobacco Use Types Packs/Day Years Used Date Smoking Tobacco: Never Assessed Comments Unknown Sex and Gender Information Value Date Recorded Sex Assigned at Not on file Legal Sex Female 3:01 AM CENTRAL MELT SPECIALIST Gender Identity Not on file Sexual Orientation Not on file documented as of this encounter Plan of Treatment Not on file documented as of this encounter Visit Diagnoses Not on filedocumented in this encounter Care Teams Groundsman Relationship Specialty Start Date End Date Mau Terry MD [facility] [address] [place] [phone] PCP - General 02/28/06 07/12/14 documented as of this encounter
--- OUTSIDE RECORDS SUMMARY | 2024-11-26 16:59 | XMS_ITS | Encounter Summary ---
Author Organization [facility] Address [address] [place] [address] Care Team Providers Care Ship Manager Name Role Phone Mau Terry MD Primary Care Provider [phone] Encounter Details Date Type Department Care Team (Late st Contact Info) Description 02/19/2009 Ancillary Orders [facility] [place] [address] [place] [phone] Mau Terry MD [address] [place] [phone] Other Screening Mammogram Social History Tobacco Use Types Packs/Day Years Used Date Smoking Tobacco: Never Alcohol Use Standard Drinks/Week Comments No 0 (1 standard drink = 0.6 oz pur e alcohol) Comments No Sex and Gender Information Value Date Recorded Sex Assigned at Not on file Legal Sex Female 3:01 AM ADVANCED MANUFACTURING CONSULTANT Gender Identity Not on file Sexual Orientation Not on file documented as of this encounter Plan of Treatment Not on file documented as of this encounter Results * MAMMO DIGITAL SCREEN BILAT (02/19/2009 2:54 PM CDT) Anatomical Region Laterality Modality Breast Bilateral Mammography Narrative 02/23/2009 5:17 PM ADVANCED MANUFACTURING CONSULTANT Bilateral Mammogram Reason for Exam: Screening Comparison: [...] mammogram documented in this encounter Care Teams Ship Manager Relationship Specialty Start Date End Date Mau Terry MD [address] [place] [phone] PCP - General 02/28/06 07/12/14 documented as of this encounter
--- OUTSIDE RECORDS SUMMARY | 2024-11-26 16:59 | XMS_ITS | Encounter Summary ---
Author Organization 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
--- OUTSIDE RECORDS SUMMARY | 2024-11-26 16:59 | XMS_ITS | Encounter Summary ---
Author Organization [facility] Address [address] [place] [address] Care Team Providers Care Stain Maker Name Role Phone Mau Terry MD Primary Care Provider [phone] Encounter Details Date Type Department Care Team (Latest Contact Info) Description 05/27/2003 Outpatient Historical [facility] Medicine [place] [address] [facility] [address] [place] [phone] Bienvenido Louise, NO ADDRESS ON FILE ALLERGIC RHINITIS NOS (Primary Dx); HYPERTENSION NOS; JOINT PAIN-L/LEG Social History Tobacco Use Types Packs/Day Years Used Date Smoking Tobacco: Never Assessed Comments Unknown Sex and Gender Information Value Date Recorded Sex Assigned at Not on file Legal Sex Female 3:01 AM MEDICAL IMAGING SPECIALIST Gender Identity Not on file Sexual Orientation Not on file documented as of this encounter Plan of Treatment Not on file documented as of this encounter Visit Diagnoses Diagnosis Allergic rhinitis, cause unspecified- Primary Unspecified essential hypertension Pain in joint, lower leg documented in this encounter Care Teams Stain Maker Relationship Specialty Start Date End Date Mau Terry MD [address] [place] [phone] PCP - General 02/28/06 07/12/14 documented as of this encounter
--- OUTSIDE RECORDS SUMMARY | 2024-11-26 16:59 | XMS_ITS | Encounter Summary ---
Author Organization [facility] Address [address] [place] [address] Care Team Providers Care Oxyhydrogen Welder Name Role Phone Mau Terry MD Primary Care Provider Encounter Details Date Type Department Care Team (Latest Contact Info) Description 03/03/2004 Outpatient [facility] [address] [place] [address] [facility] [address] [place] [address] Jose Tatum MD [address] [place] [address] AFT CARE HEAL TRAUM FRAC OTHER BONE (Primary Dx) Social History Tobacco Use Types Packs/Day Years Used Date Smoking Tobacco: Never Assessed Comments Unknown Sex and Gender Information Value Date Recorded Sex Assigned at Not on file Legal Sex Female 3:01 AM HEARING AID FITTER Gender Identity Not on file Sexual Orientation Not on file documented as of this encounter Plan of Treatment Not on file documented as of this encounter Visit Diagnoses Diagnosis Aftercare for healing traumatic fracture of other bone- Primary documented in this encounter Care Teams Oxyhydrogen Welder Relationship Specialty Start Date End Date Mau Terry MD [address] [place] [phone] PCP - General 02/28/06 07/12/14 documented as of this encounter
--- OUTSIDE RECORDS SUMMARY | 2024-11-26 16:59 | XMS_ITS | Encounter Summary ---
Author Organization [facility] Address [address] [place] [address] Care Team Providers Care Planning Technician Name Role Phone Unavailable Primary Care Provider Unavailabl e Encounter Details Date Type Department Care Team (Late st Contact Info) Description 11/21/2024 Orders Only [facility] HIM [address] [place] [phone] Provider, Abstract NO ADDRESS ON FILE Social History Tobacco Use Types Packs/Day Years Used Date Smoking Tobacco: Never Smokeless Tobacco: Never Alcohol Use Standard Drinks/Week Comments Yes 0 (1 standard drink = 0.6 oz pur e alcohol) Comments No Sex and Gender Information Value Date Recorded Sex Assigned at Not on file Legal Sex Female 12:33 PM BOILERMAKING SUPERVISOR Gender Identity Not on file Sexual Orientation Not on file documented as of this encounter Plan of Treatment Upcoming Encounters Date Type Department Care Team (Late st Contact Info) Description 03/26/2025 1:20 PM BOILERMAKING SUPERVISOR Office Visit [facility] Endocrinology [facility] [address] [phone] Carrie Osuna PA [address] [phone] documented as of this encounter Procedures Procedure Name Priority Date/Time Associated Diagnosis Comments COMPREHENSIVE METABOLIC PANEL Routine 11/06/2024 11:06 AM CDT COMPREHENSIVE METABOLIC PANEL Routine 10/31/2024 11:05 AM CDT COMPREHENSIVE METABOLIC PANEL Routine 10/28/2024 10:53 AM CDT ECHO COMPLETE Routine 10/23/2024 11:09 AM CDT NM PHARMACOLOGICAL STRESS TEST Routine 10/22/2024 11:07 AM CDT ECHO COMPLETE Routine 10/17/2024 11:08 AM CDT documented in this encounter Results * COMPREHENSIVE METABOLIC PANEL (11/06/2024 11:06 AM CDT) Blood us Abstract Provider CHEMISTRY ORDERABLES Final Res ult * COMPREHENSIVE METABOLIC PANEL (10/31/2024 11:05 AM CDT) Blood us Abstract Provider CHEMISTRY ORDERABLES Final Res ult * COMPREHENSIVE METABOLIC PANEL (10/28/2024 10:53 AM CDT) Blood us Abstract Provider CHEMISTRY ORDERABLES Final Res ult * ECHO COMPLETE (10/23/2024 11:09 AM CDT) us Abstract Provider ECHO ORDERABLES Final Result * NM PHARMACOLOGICAL STRESS TEST (10/22/2024 11:07 AM CDT) us Abstract Provider NM ORDERABLES Final Result * ECHO COMPLETE (10/17/2024 11:08 AM CDT) us Abstract Provider ECHO ORDERABLES Final Result documented in this encounter Visit Diagnoses Not on filedocumented in this encounter Additional Health Concerns Assessment Noted Time PHQ-9 Depression Total Score: 4 11/18/19 25 12:40 AM CDT documented as of this encounter
--- OUTSIDE RECORDS SUMMARY | 2024-11-26 16:59 | XMS_ITS | Clinical Summary ---
Author Organization [facility] Address [address] [place] [address] Care Team Providers Care Vice President Quality Assurance Name Role Phone Unavailable Primary Care Provider [...] glucose scanning reader (FreeStyle Lucila 14 Day [place]) Misc Check blood sugars 4 times a [...] of blood transfusion s as patient is Jainism 04/29/2012 01/01/2013 Abdominal or pelvic swelling , [...] file Legal Sex Female 3:01 AM ASSISTANT CLINICAL DIRECTOR Gender Identity Not on file [...] hyperglycemia, with long-term current use of insulin ([facility]) LIPID PANEL Routine 07/06/2020 11:48 AM CDT Uncontrolled type 2 diabetes mellitus with hyperglycemia, with long-term current use of insulin ([facility]) HEMOGLOBIN A1C Routine 07/06/2020 11:48 AM CDT Uncontrolled type 2 diabetes mellitus with hyperglycemia, with long-term current use of insulin ([facility]) DIABETES EYE EXAM Routine 01/05/2020 MAMMO SCREEN BILAT W OR WO CAD Routine 12/29/2011 2:40 PM CDT Other screening mammogram from Last 3 Months or Most Recently Relevant to Health Maintenance Results * (ABNORMAL) MICROALBUMIN/CREATININE RATIO, RANDOM UR (07/06/2020 11:54 AM CDT) MICROALBUMIN, URINE 38.3 No Reference Range mg/dL 07/06/2020 2:17 PM CDT [facility] CREATININE, URINE 75.3 29.0 - 226.0 mg/dL 07/06/2020 2:17 PM CDT [facility] Comment:Reference Range vari es with fluid intake and diet. MICROALBUMIN/ CREAT RATIO, UR 508.6(H) <25.0 mg/g 07/06/2020 2:17 PM T [facility] Urine URINE SPECIMEN OBTAINED BY CLEAN CATCH PROCEDURE / Unknown Collection / Unknown 07/06/2020 11:54 AM CDT 07/06/2020 12:19 PM CDT Narrative [facility] - 07/06/2020 2:17 PM CDT Condition Microalbumin/Creat ratio Normal Males <17 Normal Females <25 Microalbuminuria Males 17-299 Microalbuminuria Females 25-299 Overt proteinuria >=300 us Corey Lou MD URINE ORDERABLES Final Result Performing Organization Address [facility] de Phone Number [facility] CLIA# [id number] [address] [place] [address] * (ABNORMAL) HEMOGLOBIN A1C (07/06/2020 11:48 AM CDT) HEMOGLOBIN A1C 8.1(H) See Comment % 07/06/2020 1:38 PM CDT [facility] EST. AVG GLUCOSE, A1C 186 mg/dL 07/06/2020 1:38 PM CDT [facility] Blood Venipuncture / Unknown 07/06/2020 11:48 AM CDT 07/06/2020 12:01 PM CDT [facility] - 07/06/2020 1:38 PM CDT HGB A1C INTERPRETATION NORMAL: <5.7% PRE-DIABETES: 5.7 - 6.4% DIABETES: 6.5% OR GREATER Falsely low A1C measurements can occur when: 1. Anemia and/or hemolytic anemia is present. 2. Hemoglobin variants present. 3. Renal failure. 4. Transfusion of blood product in the last 120 days. We recommend ordering a fructosamine test([id number]) to more accurately assess glycemic status if any of the above conditions are present. us Corey Lou MD CHEMISTRY ORDERABLES Final Res ult Performing Organization Address [facility] Co de Phone Number [facility] CLIA# [id number] [address] [place] [address] * (ABNORMAL) LIPID PANEL (07/06/2020 11:48 AM CDT) CHOLESTEROL 201(H) <200 mg/dL 07/06/2020 1:04 PM CDT [facility] TRIGLYCERIDE 334(H) <150 mg/dL 07/06/2020 1:04 PM CDT [facility] HDL 41 40 - 59 mg/dL 07/06/2020 1:04 PM CDT [facility] LDL CALCULATED 93 <100 mg/dL 07/06/2020 1:04 PM CDT [facility] NON-HDL CHOLESTEROL 160(H) <130 mg/dL 07/06/2020 1:04 PM CDT [facility] Blood Venipuncture / Unknown 07/06/2020 11:48 AM CDT 07/06/2020 12:02 PM CDT Narrative [facility] - 07/06/2020 [...] Lou MD CHEMISTRY ORDERABLES Final Res ult [facility] CLIA# [id number] [address] [place] [address] * DIABETES EYE EXAM (01/05/2020) us Abstract [...] Most Recently Relevant to Health Maintenance Insurance [employer] [place] [id number] Advance Directives For more information, please contact: [phone] Documents on File Type Date Recorded Patient Chemical Processor Expl anation Advance Directive POA 07/06/2020 11:34 [...]
--- OUTSIDE RECORDS SUMMARY | 2024-11-26 16:59 | XMS_ITS | Encounter Summary ---
Author Organization [facility] Address [address] [place] [address] Care Team Providers Care Consumer Insights Intern Name Role Phone Mau Terry MD Primary Care Provider [phone] Encounter Details Date Type Department Care Team (Late st Contact Info) Description 05/14/2002 Outpatient Historical [facility] Ear, Nose and Throat [address] [place] [address] [place] [address] Social History Tobacco Use Types Packs/Day Years Used Date Smoking Tobacco: Never Assessed Comments Unknown Sex and Gender Information Value Date Recorded Sex Assigned at Not on file Legal Sex Female 3:01 AM DATA CONTROL CLERK SUPERVISOR Gender Identity Not on file Sexual Orientation Not on file documented as of this encounter Plan of Treatment Not on file documented as of this encounter Visit Diagnoses Not on filedocumented in this encounter Care Teams Consumer Insights Intern Relationship Specialty Start Date End Date Mau Terry MD [address] [place] [phone] PCP - General 02/28/06 07/12/14 documented as of this encounter
--- OUTSIDE RECORDS SUMMARY | 2024-11-26 16:59 | XMS_ITS | Encounter Summary ---
Author Organization [facility] Address [address] [place] [address] Care Team Providers Care Enforcement Manager Name Role Phone Mau Terry MD Primary Care Provider [phone] Encounter Details Date Type Department Care Team (Latest Contact Info) Description 07/08/2002 Outpatient Historical [facility] [address] [facility] [address] [place] [address] Bryanna Bui MD NO ADDRESS ON FILE LUMP OR MASS IN BREAST (Primary Dx) Social History Tobacco Use Types Packs/Day Years Used Date Smoking Tobacco: Never Assessed Comments Unknown Sex and Gender Information Value Date Recorded Sex Assigned at Not on file Legal Sex Female 3:01 AM DISTRICT EXTENSION SERVICE AGENT Gender Identity Not on file Sexual Orientation Not on file documented as of this encounter Plan of Treatment Not on file documented as of this encounter Visit Diagnoses Diagnosis Lump or mass in breast- Primary documented in this encounter Care Teams Enforcement Manager Relationship Specialty Start Date End Date Mau Terry MD [address] [place] [phone] PCP - General 02/28/06 07/12/14 documented as of this encounter
--- OUTSIDE RECORDS SUMMARY | 2024-11-26 16:59 | XMS_ITS | Encounter Summary ---
Author Organization [email or web address] Address [address] [place] [address] Phone Care Team Providers Care Brand Coordinator Name Role Phone Jose Bah Primary Care Provider Encounter Details Date Type Department Care Team (Late st Contact Info) Description 11/20/2024 Documentation Only [email or web address] [employer] [address] [place] [address] Ana Laura Fam MA [address] [place] [address] Social History Tobacco Use Types [...] on filedocumented in this encounter Care Teams Brand Coordinator Relationship Specialty Start Date End Date Jose Bah [address] [place], [place] [phone] PCP - General 12/07/23 documented as of this encounter
--- OUTSIDE RECORDS SUMMARY | 2024-11-26 16:59 | XMS_ITS | Encounter Summary ---
Author Organization [facility] Address [address] [place] [address] Care Team Providers Care It Software Engineer Name Role Phone Mau Terry MD Primary Care Provider [phone] Encounter Details Date Type Department Care Team (Latest Contact Info) Description 08/22/2002 Outpatient Historical [facility] Ear, Nose and Throat [address] [place] [address] [place] [address] [place] [address] Jc Barth MD NO ADDRESS ON FILE CONDUCT HEARING LOSS NOS (Primary Dx); ALLERGIC RHINITIS NOS Social History Tobacco Use Types Packs/Day Years Used Date Smoking Tobacco: Never Assessed Comments Unknown Sex and Gender Information Value Date Recorded Sex Assigned at Not on file Legal Sex Female 3:01 AM FIELD SERVICE TECHNICIAN Gender Identity Not on file Sexual Orientation Not on file documented as of this encounter Plan of Treatment Not on file documented as of this encounter Visit Diagnoses Diagnosis Unspecified conductive hearing loss- Primary Allergic rhinitis, cause unspecified documented in this encounter Care Teams It Software Engineer Relationship Specialty Start Date End Date Mau Terry MD [address] [place] [phone] PCP - General 02/28/06 07/12/14 documented as of this encounter
--- OUTSIDE RECORDS SUMMARY | 2024-11-26 16:59 | XMS_ITS | Encounter Summary ---
Author Organization [facility] Address [address] [place] [address] Care Team Providers Care Edge Trimmer Name Role Phone Mau Terry MD Primary Care Provider [phone] Encounter Details Date Type Department Care Team (Latest Contact Info) Description 10/29/2002 Outpatient Historical [facility] [address] [place] [address] [place] [address] Chelita Luna, CDL TRUCK DRIVER [address] [place] [address] INSOMNIA NEC (Primary Dx) Social History Tobacco Use Types Packs/Day Years Used Date Smoking Tobacco: Never Assessed Comments Unknown Sex and Gender Information Value Date Recorded Sex Assigned at Not on file Legal Sex Female 3:01 AM GAME TESTER Gender Identity Not on file Sexual Orientation Not on file documented as of this encounter Plan of Treatment Not on file documented as of this encounter Visit Diagnoses Diagnosis Insomnia, unspecified- Primary documented in this encounter Care Teams Edge Trimmer Relationship Specialty Start Date End Date Mau Terry MD [address] [place] [phone] PCP - General 02/28/06 07/12/14 documented as of this encounter
--- OUTSIDE RECORDS SUMMARY | 2024-11-26 16:59 | XMS_ITS | Encounter Summary ---
Author Organization [facility] Address [address] [place] [address] Care Team Providers Care Retail Parts Professional Name Role Phone Unavailable Primary Care Provider Unavailabl e Encounter Details Date Type Department Care Team (Late st Contact Info) Description 11/18/2024 External Device Data [place] ABSTRACTION Provider, Abstract NO ADDRESS ON FILE Social History Tobacco Use Types Packs/Day Years Used Date Smoking Tobacco: Never Smokeless Tobacco: Never Alcohol Use Standard Drinks/Week Comments Yes 0 (1 standard drink = 0.6 oz pur e alcohol) Comments No Sex and Gender Information Value Date Recorded Sex Assigned at Not on file Legal Sex Female 12:33 PM INSIDE SALES ASSISTANT Gender Identity Not on file Sexual Orientation Not on file documented as of this encounter Plan of Treatment Upcoming Encounters Date Type Department Care Team (Late st Contact Info) Description 03/26/2025 1:20 PM INSIDE SALES ASSISTANT Office Visit [facility] [address] [place] [address] Carrie Osuna, PA [address] [place] [address] documented as of this encounter Visit Diagnoses Not on filedocumented in this encounter Additional Health Concerns Assessment Noted Time PHQ-9 Depression Total Score: 4 11/18/19 25 12:40 AM CDT documented as of this encounter
--- OUTSIDE RECORDS SUMMARY | 2024-11-26 17:00 | XMS_ITS | Encounter Summary ---
Author Organization [employer] [facility] Address [address] [place] [address] Care Team Providers Care Service Station Equipment Mechanic Name Role Phone Mau Terry MD Primary Care Provider [phone] Encounter Details Date Type Department Care Team (Latest Contact Info) Description 04/08/2004 Outpatient [facility] [address] [place] [address] Bienvenido Louise, NO ADDRESS ON FILE SCREENING MAMM-MAILG NEOPL-OTHER (Primary Dx) Social History Tobacco Use Types Packs/Day Years Used Date Smoking Tobacco: Never Assessed Comments Unknown Sex and Gender Information Value Date Recorded Sex Assigned at Not on file Legal Sex Female 3:01 AM PLATE COLORER Gender Identity Not on file Sexual Orientation Not on file documented as of this encounter Plan of Treatment Not on file documented as of this encounter Visit Diagnoses Diagnosis Other screening mammogram- Primary documented in this encounter Care Teams Service Station Equipment Mechanic Relationship Specialty Start Date End Date Mau Terry MD [facility] [address] [place] [phone] PCP - General 02/28/06 07/12/14 documented as of this encounter
--- OUTSIDE RECORDS SUMMARY | 2024-11-26 17:00 | XMS_ITS | Encounter Summary ---
Author Organization [facility] Address [address] [place] [address] Care Team Providers Care Engineer Sergeant Name Role Phone Mau Terry MD Primary Care Provider Reason for Referral * Outpatient Services (Routine) - Closed Specialty Diagnoses / Procedures Referred By Contac t Referred To Contact Diagnoses Other screening mammogram Procedures MAMMO DIGITAL SCREEN BILAT Mau Terry MD [address] [place] [phone] Phone: tel: fax: [facility] Pre-Registration [place] CALL TO MAKE APPOINTMENT ONLY [address] [place] [address] Phone: tel: fax: Referral ID Status Reason Start Date Expiration Date V isits Requested Visits Authorized [id number] Closed F [facility] TO SCHEDULE (SGF) 11/03/2011 11/02/2012 1 1 Encounter Details Date Type Department Care Team (Latest Contact Info) Description 11/03/2011 Ancillary Orders [facility] [place] CALL TO MAKE APPOINTMENT ONLY [address] [place] [address] aMu Terry MD [address] [place] [address] Other screening mammogram Social History Tobacco Use Types Packs/Day Years Used Date Smoking Tobacco: Never Smokeless Tobacco: Never Alcohol Use Standard Drinks/Week Comments No 0 (1 standard drink = 0.6 oz pur e alcohol) Comments No Sex and Gender Information Value Date Recorded Sex Assigned at Not on file Legal Sex Female 3:01 AM ELIGIBILITY WORKER Gender Identity Not on file Sexual [...] mammogram documented in this encounter Care Teams Engineer Sergeant Relationship Specialty Start Date End Date Mau Terry MD [address] [place] [address] [place] [phone] PCP - General 02/28/06 07/12/14 documented as of this encounter
--- OUTSIDE RECORDS SUMMARY | 2024-11-26 17:00 | XMS_ITS | Encounter Summary ---
Author Organization [facility] Address [address] [place] [address] Care Team Providers Care Accounts Receivable Clerk Name Role Phone Mau Terry MD Primary Care Provider [phone] Encounter Details Date Type Department Care Team (Latest Contact Info) Description 02/17/2000 Outpatient Historical [facility] Jonh Fox Jr., MD [address] [place] [phone] Unspecified essential hypertension (Primary Dx) Social History Tobacco Use Types Packs/Day Years Used Date Smoking Tobacco: Never Assessed Comments Unknown Sex and Gender Information Value Date Recorded Sex Assigned at Not on file Legal Sex Female 3:01 AM ADVERTISING COPYWRITER Gender Identity Not on file Sexual Orientation Not on file documented as of this encounter Plan of Treatment Not on file documented as of this encounter Visit Diagnoses Diagnosis Unspecified essential hypertension- Primary documented in this encounter Care Teams Accounts Receivable Clerk Relationship Specialty Start Date End Date Mau Terry MD [address] [place] [phone] PCP - General 02/28/06 07/12/14 documented as of this encounter
--- OUTSIDE RECORDS SUMMARY | 2024-11-26 17:00 | XMS_ITS | Encounter Summary ---
Author Organization [facility] Address [address] [place] [address] Care Team Providers Care Shell Shop Supervisor Name Role Phone Mau Terry MD Primary Care Provider [phone] Encounter Details Date Type Department Care Team (Latest Contact Info) Description 05/04/2004 Outpatient Historical [facility] [place] [address] [facility] [address] [place] [phone] Sven Kimball, [place] NO ADDRESS ON FILE HYPERTENSION NOS (Primary Dx); SKIN DISORDER NOS; HEAD INJURY UNSPECIFIED Social History Tobacco Use Types Packs/Day Years Used Date Smoking Tobacco: Never Assessed Comments Unknown Sex and Gender Information Value Date Recorded Sex Assigned at Not on file Legal Sex Female 3:01 AM REEL MAN Gender Identity Not on file Sexual Orientation Not on file documented as of this encounter Plan of Treatment Not on file documented as of this encounter Visit Diagnoses Diagnosis Unspecified essential hypertension- Primary Unspecified disorder of skin and subcutaneous tissue Head injury, unspecified documented in this encounter Care Teams Shell Shop Supervisor Relationship Specialty Start Date End Date Mau Terry MD [address] [place] [phone] PCP - General 02/28/06 07/12/14 documented as of this encounter
--- OUTSIDE RECORDS SUMMARY | 2024-11-26 17:00 | XMS_ITS | Encounter Summary ---
Author Organization [facility] Address [address] [place] [address] Care Team Providers Care Cosmetician Apprentice Name Role Phone Mau Terry MD Primary Care Provider [phone] Encounter Details Date Type Department Care Team (Latest Contact Info) Description 03/06/2006 Outpatient Historical [facility] Imaging Services [address] [place] [address] Mau Terry MD [address] [place] [phone] Dysphagia (Primary Dx) Social History Tobacco Use Types Packs/Day Years Used Date Smoking Tobacco: Never Assessed Comments Unknown Sex and Gender Information Value Date Recorded Sex Assigned at Not on file Legal Sex Female 3:01 AM STEEL ERECTOR Gender Identity Not on file Sexual Orientation Not on file documented as of this encounter Plan of Treatment Not on file documented as of this encounter Procedures Procedure Name Priority Date/Time Associated Diagnosis Comments XR ESOPHAGUS BARIUM SWALLOW Routine 03/06/2006 12:01 AM STEEL ERECTOR documented in this encounter Results * XR ESOPHAGUS BARIUM SWALLOW (03/06/2006 12:01 AM STEEL ERECTOR) Anatomical Region Laterality Modality Abdomen Other 03/06/2006 12:0 1 AM STEEL ERECTOR Narrative 03/06/2006 12:01 AM STEEL ERECTOR BARIUM SWALLOW 03/06/2006 AT 1036: COMPARISONS: None. [...] Primary documented in this encounter Care Teams Cosmetician Apprentice Relationship Specialty Start Date End Date Mau Terry MD [address] [place] [phone] PCP - General 02/28/06 07/12/14 documented as of this encounter
--- OUTSIDE RECORDS SUMMARY | 2024-11-26 17:00 | XMS_ITS | Encounter Summary ---
Author Organization [facility] Address [address] [place] [address] Care Team Providers Care Business System Consultant Name Role Phone Mau Terry MD Primary Care Provider [phone] Encounter Details Date Type Department Care Team (Latest Contact Info) Description 04/08/2004 Outpatient Historical [facility] Internal Medicine- [place] [address] [facility] [address] [place] [address] Russell Madrid MD [address] [place] [phone] HYPERTENSION NOS (Primary Dx); OTHER MALAISE AND FATIGUE Social History Tobacco Use Types Packs/Day Years Used Date Smoking Tobacco: Never Assessed Comments Unknown Sex and Gender Information Value Date Recorded Sex Assigned at Not on file Legal Sex Female 3:01 AM CONSULTING NETWORKING ENGINEER Gender Identity Not on file Sexual Orientation Not on file documented as of this encounter Plan of Treatment Not on file documented as of this encounter Visit Diagnoses Diagnosis Unspecified essential hypertension- Primary Other malaise and fatigue documented in this encounter Care Teams Business System Consultant Relationship Specialty Start Date End Date Mau Terry MD [facility] [address] [place] [phone] PCP - General 02/28/06 07/12/14 documented as of this encounter
--- OUTSIDE RECORDS SUMMARY | 2024-11-26 17:00 | XMS_ITS | Encounter Summary ---
Author Organization [facility] Address [address] [place] [address] Care Team Providers Care Supervisor Unloading Name Role Phone Mau Terry MD Primary Care Provider [phone] Encounter Details Date Type Department Care Team (Latest Contact Info) Description 03/15/2004 Outpatient Historical [facility] [address] [place] [phone] Sven Kimball, PA NO ADDRESS ON FILE DIZZINESS AND GIDDINESS (Primary Dx); OTALGIA NOS; HYPOTENSION NOS Social History Tobacco Use Types Packs/Day Years Used Date Smoking Tobacco: Never Assessed Comments Unknown Sex and Gender Information Value Date Recorded Sex Assigned at Not on file Legal Sex Female 3:01 AM MEDICARE SALES REPRESENTATIVE Gender Identity Not on file Sexual Orientation Not on file documented as of this encounter Plan of Treatment Not on file documented as of this encounter Visit Diagnoses Diagnosis Dizziness and giddiness- Primary Otalgia, unspecified Hypotension, unspecified documented in this encounter Care Teams Supervisor Unloading Relationship Specialty Start Date End Date Mau Terry MD [address] [place] [phone] PCP - General 02/28/06 07/12/14 documented as of this encounter
--- OUTSIDE RECORDS SUMMARY | 2024-11-26 17:00 | XMS_ITS | Encounter Summary ---
Author Organization [facility] Address [address] [place] [address] Care Team Providers Care Manufacturing Technology Professor Name Role Phone Mau Terry MD Primary Care Provider [phone] Encounter Details Date Type Department Care Team (Latest Contact Info) Description 05/24/2005 Outpatient Historical [facility] Medicine [place] [address] [facility] [address] [place] [address] Sven Kimball, [place] NO ADDRESS ON FILE SWELLING OF LIMB (Primary Dx); Plantar fibromatosis; HYPERTENSION NOS Social History Tobacco Use Types Packs/Day Years Used Date Smoking Tobacco: Never Assessed Comments Unknown Sex and Gender Information Value Date Recorded Sex Assigned at Not on file Legal Sex Female 3:01 AM PRODUCT TESTER Gender Identity Not on file Sexual Orientation Not on file documented as of this encounter Plan of Treatment Not on file documented as of this encounter Visit Diagnoses Diagnosis Swelling of limb- Primary Plantar fibromatosis Plantar fascial fibromatosis Unspecified essential hypertension documented in this encounter Care Teams Manufacturing Technology Professor Relationship Specialty Start Date End Date Mau Terry MD [address] [place] [phone] PCP - General 02/28/06 07/12/14 documented as of this encounter
--- OUTSIDE RECORDS SUMMARY | 2024-11-26 17:00 | XMS_ITS | Encounter Summary ---
Author Organization [facility] Address [address] [place] [address] Care Team Providers Care Communications Strategist Name Role Phone Mau Terry MD Primary Care Provider [phone] Encounter Details Date Type Department Care Team (Latest Contact Info) Description 04/19/2000 Outpatient Historical [facility] Jonh Fox Jr., MD [address] [place] [address] Unspecified essential hypertension (Primary Dx); Undiagnosed cardiac murmurs Social History Tobacco Use Types Packs/Day Years Used Date Smoking Tobacco: Never Assessed Comments Unknown Sex and Gender Information Value Date Recorded Sex Assigned at Not on file Legal Sex Female 3:01 AM SKIFF OPERATOR Gender Identity Not on file Sexual Orientation Not on file documented as of this encounter Plan of Treatment Not on file documented as of this encounter Visit Diagnoses Diagnosis Unspecified essential hypertension- Primary Undiagnosed cardiac murmurs documented in this encounter Care Teams Communications Strategist Relationship Specialty Start Date End Date Mau Terry MD [address] [place] [phone] PCP - General 02/28/06 07/12/14 documented as of this encounter
--- OUTSIDE RECORDS SUMMARY | 2024-11-26 17:00 | XMS_ITS | Encounter Summary ---
Author Organization [facility] Address [address] [place] [address] Care Team Providers Care Preparer Name Role Phone Mau Terry MD Primary Care Provider [phone] Encounter Details Date Type Department Care Team (Latest Contact Info) Description 03/02/2000 Outpatient Historical [facility] Jonh Fox Jr., MD [address] [place] [address] Unspecified essential hypertension (Primary Dx); Obesity, unspecified Social History Tobacco Use Types Packs/Day Years Used Date Smoking Tobacco: Never Assessed Comments Unknown Sex and Gender Information Value Date Recorded Sex Assigned at Not on file Legal Sex Female 3:01 AM STOCK LIFTER Gender Identity Not on file Sexual Orientation Not on file documented as of this encounter Plan of Treatment Not on file documented as of this encounter Visit Diagnoses Diagnosis Unspecified essential hypertension- Primary Obesity, unspecified documented in this encounter Care Teams Preparer Relationship Specialty Start Date End Date Mau Terry MD [address] [place] [phone] PCP - General 02/28/06 07/12/14 documented as of this encounter
--- OUTSIDE RECORDS SUMMARY | 2024-11-26 17:00 | XMS_ITS | Encounter Summary ---
Author Organization [facility] Address [address] [place] [address] Care Team Providers Care Adolescent Counselor Name Role Phone Mau Terry MD Primary Care Provider Encounter Details Date Type Department Care Team (Latest Contact Info) Description 11/30/2004 Outpatient Historical [facility] Medicine [place] [address] [facility] [address] [place] [phone] Sven Kimball PA NO ADDRESS ON FILE OTHER MALAISE AND FATIGUE (Primary Dx); HYPERTENSION NOS Social History Tobacco Use Types Packs/Day Years Used Date Smoking Tobacco: Never Assessed Comments Unknown Sex and Gender Information Value Date Recorded Sex Assigned at Not on file Legal Sex Female 3:01 AM INSURANCE AND BENEFITS CLERK Gender Identity Not on file Sexual Orientation Not on file documented as of this encounter Plan of Treatment Not on file documented as of this encounter Visit Diagnoses Diagnosis Other malaise and fatigue- Primary Unspecified essential hypertension documented in this encounter Care Teams Adolescent Counselor Relationship Specialty Start Date End Date Mau Terry MD [address] [place] [phone] PCP - General 02/28/06 07/12/14 documented as of this encounter
--- OUTSIDE RECORDS SUMMARY | 2024-11-26 17:00 | XMS_ITS | Encounter Summary ---
Author Organization [facility] Address [address] [place] [address] Care Team Providers Care Drying Frame Operator Name Role Phone Mau Terry MD Primary Care Provider [phone] Encounter Details Date Type Department Care Team (Latest Contact Info) Description 03/16/2006 Outpatient [facility] Breast [facility] [address] [place] [address] Mau Terry MD [address] [place] [phone] Other Screening Mammogram (Primary Dx) Social History Tobacco Use Types Packs/Day Years Used Date Smoking Tobacco: Never Assessed Comments Unknown Sex and Gender Information Value Date Recorded Sex Assigned at Not on file Legal Sex Female 3:01 AM LAND MANAGEMENT SUPERVISOR Gender Identity Not on file Sexual Orientation Not on file documented as of this encounter Plan of Treatment Not on file documented as of this encounter Visit Diagnoses Diagnosis Other screening mammogram- Primary documented in this encounter Care Teams Drying Frame Operator Relationship Specialty Start Date End Date Mau Terry MD [address] [place] [phone] PCP - General 02/28/06 07/12/14 documented as of this encounter
--- OUTSIDE RECORDS SUMMARY | 2024-11-26 17:00 | XMS_ITS | Encounter Summary ---
Author Organization [facility] Address [address] [place] [address] Care Team Providers Care Service Dispatcher Name Role Phone Mau Terry MD Primary Care Provider [phone] Encounter Details Date Type Department Care Team (Latest Contact Info) Description 11/23/2004 Outpatient Historical [facility] Medicine [place] [address] [facility] [place] [address] [place] [address] Sven Kimball PA NO ADDRESS ON FILE HYPERTENSION NOS (Primary Dx); SUPPLY CONTROLLER DISORDER NOS Social History Tobacco Use Types Packs/Day Years Used Date Smoking Tobacco: Never Assessed Comments Unknown Sex and Gender Information Value Date Recorded Sex Assigned at Not on file Legal Sex Female 3:01 AM SOLVENT PLANT OPERATOR Gender Identity Not on file Sexual Orientation Not on file documented as of this encounter Plan of Treatment Not on file documented as of this encounter Visit Diagnoses Diagnosis Unspecified essential hypertension- Primary Unspecified disorders of nervous system documented in this encounter Care Teams Service Dispatcher Relationship Specialty Start Date End Date Mau Terry MD [address] [place] [phone] PCP - General 02/28/06 07/12/14 documented as of this encounter
--- OUTSIDE RECORDS SUMMARY | 2024-11-26 17:00 | XMS_ITS | Encounter Summary ---
Author Organization [facility] Address [address] [place] [address] Care Team Providers Care Ceramic Sprayer Name Role Phone Mau Terry MD Primary Care Provider [phone] Encounter Details Date Type Department Care Team (Latest Contact Info) Description 02/15/2005 Outpatient Historical [facility] [address] [place] [address] [place] [address] [place] [address] Anselmo Lopez MD [address] [address] CONDUCT HEARING LOSS NOS (Primary Dx); HYPERTENSION NOS; SCREENING-LIPOID DISORDERS Social History Tobacco Use Types Packs/Day Years Used Date Smoking Tobacco: Never Assessed Comments Unknown Sex and Gender Information Value Date Recorded Sex Assigned at Not on file Legal Sex Female 3:01 AM FIBER DESIGNER Gender Identity Not on file Sexual Orientation Not on file documented as of this encounter Plan of Treatment Not on file documented as of this encounter Visit Diagnoses Diagnosis Unspecified conductive hearing loss- Primary Unspecified essential hypertension Screening for lipoid disorders documented in this encounter Care Teams Ceramic Sprayer Relationship Specialty Start Date End Date Mau Terry MD [address] [place] [phone] PCP - General 02/28/06 07/12/14 documented as of this encounter
--- OUTSIDE RECORDS SUMMARY | 2024-11-26 17:00 | XMS_ITS | Encounter Summary ---
Author Organization [facility] Address [address] [place] [address] Care Team Providers Care Purchasing Intern Name Role Phone Mau Terry MD Primary Care Provider [phone] Encounter Details Date Type Department Care Team (Latest Contact Info) Description 03/16/2006 Outpatient Historical [facility] [address] [facility] [address] [place] [address] Jamey Fraga MD NO ADDRESS ON FILE Other Screening Mammogram (Primary Dx) Social History Tobacco Use Types Packs/Day Years Used Date Smoking Tobacco: Never Assessed Comments Unknown Sex and Gender Information Value Date Recorded Sex Assigned at Not on file Legal Sex Female 3:01 AM GOLF MANAGER Gender Identity Not on file Sexual Orientation Not on file documented as of this encounter Plan of Treatment Not on file documented as of this encounter Visit Diagnoses Diagnosis Other screening mammogram- Primary documented in this encounter Care Teams Purchasing Intern Relationship Specialty Start Date End Date Mau Terry MD [address] [place] [phone] PCP - General 02/28/06 07/12/14 documented as of this encounter
--- OUTSIDE RECORDS SUMMARY | 2024-11-26 17:00 | XMS_ITS | Encounter Summary ---
Author Organization [facility] Address [address] [place] [address] Care Team Providers Care Home Therapy Clinician Name Role Phone Mau Terry MD Primary Care Provider [phone] Encounter Details Date Type Department Care Team (Latest Contact Info) Description 01/11/2005 Outpatient Historical [facility] Medicine [place] [address] [facility] [address] [place] [address] Sven Kimball, PA NO ADDRESS ON FILE HYPERTENSION NOS (Primary Dx); CARDIAC DYSRHYTHMIAS NEC; MALAISE AND FATIGUE NEC Social History Tobacco Use Types Packs/Day Years Used Date Smoking Tobacco: Never Assessed Comments Unknown Sex and Gender Information Value Date Recorded Sex Assigned at Not on file Legal Sex Female 3:01 AM TELEPHONE COLLECTOR Gender Identity Not on file Sexual Orientation Not on file documented as of this encounter Plan of Treatment Not on file documented as of this encounter Visit Diagnoses Diagnosis Unspecified essential hypertension- Primary Other specified cardiac dysrhythmias(427.89) Other specified cardiac dysrhythmias Other malaise and fatigue documented in this encounter Care Teams Home Therapy Clinician Relationship Specialty Start Date End Date Mau Terry MD [address] [place] [phone] PCP - General 02/28/06 07/12/14 documented as of this encounter
--- OUTSIDE RECORDS SUMMARY | 2024-11-26 17:00 | XMS_ITS | Encounter Summary ---
Author Organization [facility] Address [address] [place] [address] Care Team Providers Care Retail Planner Name Role Phone Mau Terry MD Primary Care Provider [phone] Encounter Details Date Type Department Care Team (Latest Contact Info) Description 12/14/2004 Outpatient Historical [facility] Medicine [place] [address] [facility] [address] [place] [address] Sven Kimball PA NO ADDRESS ON FILE MALAISE AND FATIGUE NEC (Primary Dx); HYPERTENSION NOS Social History Tobacco Use Types Packs/Day Years Used Date Smoking Tobacco: Never Assessed Comments Unknown Sex and Gender Information Value Date Recorded Sex Assigned at Not on file Legal Sex Female 3:01 AM ASSISTANT GOLF COURSE SUPERINTENDENT Gender Identity Not on file Sexual Orientation Not on file documented as of this encounter Plan of Treatment Not on file documented as of this encounter Visit Diagnoses Diagnosis Other malaise and fatigue- Primary Unspecified essential hypertension documented in this encounter Care Teams Retail Planner Relationship Specialty Start Date End Date Mau Terry MD [address] [place] [phone] PCP - General 02/28/06 07/12/14 documented as of this encounter
--- OUTSIDE RECORDS SUMMARY | 2024-11-26 17:00 | XMS_ITS | Encounter Summary ---
Author Organization [facility] Address [address] [place] [address] Care Team Providers Care Surg Nurse Name Role Phone Mau Terry MD Primary Care Provider [phone] Encounter Details Date Type Department Care Team (Latest Contact Info) Description 03/08/2000 Outpatient Historical [facility] [address] [facility] [address] [place] [address] Jamey Fraga MD NO ADDRESS ON FILE Nonspecific abnormal findings on radiological or other examinations of the breast (Primary Dx) Social History Tobacco Use Types Packs/Day Years Used Date Smoking Tobacco: Never Assessed Comments Unknown Sex and Gender Information Value Date Recorded Sex Assigned at Not on file Legal Sex Female 3: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
--- OUTSIDE RECORDS SUMMARY | 2024-11-26 17:00 | XMS_ITS | Encounter Summary ---
Author Organization [facility] Address [address] [place] [address] Care Team Providers Care Equine Vet Name Role Phone Mau Terry MD Primary Care Provider [phone] Encounter Details Date Type Department Care Team (Latest Contact Info) Description 08/27/2004 Outpatient Historical [facility] [address] [place] [address] AMBULANCE, [facility] ELB/FOREARM/WRST INJURY NOS (Primary Dx) Social History Tobacco Use Types Packs/Day Years Used Date Smoking Tobacco: Never Assessed Comments Unknown Sex and Gender Information Value Date Recorded Sex Assigned at Not on file 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
--- OUTSIDE RECORDS SUMMARY | 2024-11-26 17:00 | XMS_ITS | Encounter Summary ---
Author Organization [facility] Address [address] [place] [address] Care Team Providers Care Clam Shucker Name Role Phone Mau Terry MD Primary Care Provider [phone] Encounter Details Date Type Department Care Team (Latest Contact Info) Description 04/08/2004 Outpatient Historical [facility] [address] [facility] [address] [place] [address] Jamey Fraga MD NO ADDRESS ON FILE SCREENING MAMM-MAILG NEOPL-OTHER (Primary Dx) Social History Tobacco Use Types Packs/Day Years Used Date Smoking Tobacco: Never Assessed Comments Unknown Sex and Gender Information Value Date Recorded Sex Assigned at Not on file 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
--- OUTSIDE RECORDS SUMMARY | 2024-11-26 17:00 | XMS_ITS | Encounter Summary ---
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) Social History Tobacco Use Types Packs/Day Years Used Date Smoking Tobacco: Never Assessed Comments Unknown Sex and Gender Information Value Date Recorded Sex Assigned at Not on file 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
--- OUTSIDE RECORDS SUMMARY | 2024-11-26 17:00 | XMS_ITS | Encounter Summary ---
Author Organization [facility] Address [address] [place] [address] Care Team Providers Care Acid Dipper Name Role Phone Mau Terry MD Primary Care Provider [phone] Encounter Details Date Type Department Care Team (Latest Contact Info) Description 03/30/2004 Outpatient Historical [facility] [address] [place] [address] Anselmo Lopez MD [address] [address] PERIPHERAL VERTIGO NOS (Primary Dx); BENIGN PARXYSMAL VERTIGO; CONDUCT HEARING LOSS NOS; IMPACTED CERUMEN Social History Tobacco Use Types Packs/Day Years Used Date Smoking Tobacco: Never Assessed Comments Unknown Sex and Gender Information Value Date Recorded Sex Assigned at Not on file Legal Sex Female 3:01 AM [employer] Gender Identity Not on file Sexual Orientation Not on file documented as of this encounter Plan of Treatment Not on file documented as of this encounter Visit Diagnoses Diagnosis Peripheral vertigo, unspecified- Primary Benign paroxysmal positional vertigo Unspecified conductive hearing loss Impacted cerumen documented in this encounter Care Teams Acid Dipper Relationship Specialty Start Date End Date Mau Terry MD [address] [place] [phone] PCP - General 02/28/06 07/12/14 documented as of this encounter
--- OUTSIDE RECORDS SUMMARY | 2024-11-26 17:00 | XMS_ITS | Clinical Summary ---
Author Organization [facility] Address [address] [place] [address] Care Team Providers Care Field Assessor Name Role Phone Unavailable Primary Care Provider Unavailabl e Allergies Active Allergy Reactions Criticality Noted Date Comments Empagliflozin Rash Low 07/29/2024 Sitagliptin Unknown 07/06/2020 Medications atorvastatin (LIPITOR) 40 mg tablet Take 1 Tablet (40 mg) by mouth daily. 90 Tablet 3 Active blood sugar diagnostic (OneTouch Verio test strips) Strip Use to check BG 3x daily. E11.65 300 Strip 3 Active lancets (OneTouch Delica Lancets) 30 gauge Use to check BG 3x daily. E11.65 300 Each 3 022 Active Blood-Glucose Meter (OneTouch Verio Flex meter) Use to check BG 3x daily. E11.65 1 Each Active flash glucose sensor (FreeStyle Lucila 2 Sensor) Kit Replace every 14 days. 6 Kit 3 Active flash glucose scanning reader (FreeStyle Lucila 2 [place]) [facility] Use to check BG. 1 Each 022 Active irbesartan (AVAPRO) 150 mg tablet Take 150 mg by mouth daily. Active latanoprost (XALATAN) 0.005 % solution INSTILL 1 DROP INTO EACH EYE EVERY EVENING Active magnesium oxide 250 mg magnesium Tablet Take by mouth. Activ e omega-3 fatty acids-fish oil 300-1,000 mg Capsule Take by mouth daily. Active cholecalcifero l, Vitamin D3, 125 mcg (5,000 unit) Capsule Take 5,000 Units by mouth daily. Active Insulin [place], Disposable, (BD Alexus 2nd Gen Pen Needle) 32 gauge x 5/32 Needle Use to inject insulin four times daily 400 Each 022 Active semaglutide (Ozempic) 1 mg/dose (4 mg/3 mL) Pen Injector Inject 1.0 mg weekly. 9 mL 3 023 Active galantamine (RAZADYNE) 4 mg tablet Take 4 mg by mouth 2 times daily. Active amLODIPine (NORVASC) 5 mg tablet Take 5 mg by mouth daily. Active clopidogreL (PLAVIX) 75 mg Tablet Take 75 mg by mouth daily. Active ezetimibe (ZETIA) 10 mg tablet Take 10 mg by mouth daily. Active hydrALAZINE (APRESOLINE) 10 mg tablet Take 10 mg by mouth every 8 hours. Active insulin glargine (LANTUS) 100 unit/mL pen syringe Inject 25 Units by subcutaneous injection daily at bedtime. Active isosorbide mononitrate (IMDUR) 30 mg Extended Release 24 hour tablet Take 30 mg by mouth daily in the morning. Active metoprolol tartrate (LOPRESSOR) 25 mg tablet Take 25 mg by mouth every 12 hours. Active gabapentin (NEURONTIN) 100 mg capsule Take 100 mg by mouth 2 times daily. Active albuterol sulfate HFA 90 mcg/actuation aerosol inhaler Take 2 Puffs by inhalation every 6 hours as needed for Shortness of Breath or Wheezing. Active ergocalciferol (VITAMIN D2) 50,000 unit capsule Take 50,000 Units by mouth every 7 days. Active nitroglycerin (NITROSTAT) 0.4 mg Tablet, Sublingual Place 0.4 mg under tongue every 5 minutes as needed for Chest Pain. Active apixaban (ELIQUIS) 5 mg tablet Take 1 Tablet (5 mg) by mouth 2 times daily. 60 Tablet 2 Active pantoprazole (PROTONIX) 40 mg Tablet, Delayed Release (E.C.) Take 1 Tablet (40 mg) by mouth daily. 30 Tablet 2 Active ondansetron (ZOFRAN ODT) 4 mg Tablet, Rapid Dissolve Place 1 Tablet (4 mg) under tongue every 6 hours as needed for Nausea/Emesis. Dissolve tablet on top of tongue, then swallow with saliva. 20 Tablet 025 Active insulin lispro (HUMALOG KWIKPEN INSULIN SUBCUT) Inject by subcutaneous injection. 15 units with lunch 20 units with supper 10 units with snack SQ TID AC plus correction Max 75 units a day 021 2024 Discontinued(A lternate therapy prescribed) dulaglutide (TRULICITY) 3 mg/0.5 mL injection Inject 0.5 mL (3 mg) by subcutaneous injection every 7 days. 6 mL 3 022 2024 Discontinued(A lternate therapy prescribed) NovoLOG Flexpen U-100 Insulin 100 unit/mL (3 mL) pen syringe INJECT THREE TIMES DAILY 15 UNITS SUBCUTANEOUSLY AT LUNCHTIME, 20 UNITS AT SUPPERTIME, 10 UNITS WITH SNACK. MAXIMUM DOSE 75 UNITS PER DAY 022 2024 Discontinued(A lternate therapy prescribed) potassium chloride (KLOR-CON) 10 mEq Extended Release tablet Take 10 mEq by mouth. 2024 Discontinued insulin detemir U-100 (Levemir FlexTouch U-100 Insuln) 100 unit/mL pen syringe INJECT 40 UNITS SUBCUTANEOUSLY TWICE DAILY 45 mL 3 022 2024 Discontinued(A lternate therapy prescribed) pantoprazole (PROTONIX) 40 mg Tablet, Delayed Release (E.C.) Take 40 mg by mouth daily. 2024 Discontinued(A lternate therapy prescribed) Jardiance 10 mg tablet Take 10 mg by mouth. 024 2024 Discontinued(S kamron effect/intoler ance) apixaban (ELIQUIS) 5 mg tablet Take 2.5 mg by mouth every 12 hours. 025 2024 Discontinued irbesartan-hyd roCHLOROthiazi de (AVALIDE) 150-12.5 mg tablet Take 1 Tablet by mouth daily. 2024 Discontinued(A lternate therapy prescribed) bumetanide (BUMEX) 1 mg tablet Take 1 mg by mouth 2 times daily. 2024 Discontinued omeprazole (PriLOSEC) 40 mg Capsule, Delayed Release(E.C.) Take 40 mg by mouth daily. 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 11/17/2024 Hyperkalemia 11/17/2024 Mixed hyperlipidemia 11/17/2024 Type 2 diabetes mellitus wit h stage 5 chronic kidney disease not on chronic dialysis, with long-term current use of insulin 11/17/2024 Severe obesity (BMI 35.0-39.9) with comorbidity 11/17/2024 Fluid overload 11/17/2024 Chronic anticoagulation 11/17/2024 CKD (chronic kidney disease) stage 5, GFR less than 15 ml/min 11/17/2024 Atherosclerosis of coronary artery without angin a pectoris 11/06/2024 Pleural effusion 11/06/2024 Paroxysmal atrial fibrillation 10/28/2024 Hyperopia with astigmatism and presbyopia 2012 Dry [...] borderline findings, low risk Chronic mastoiditis 02/12/2012 Essential hypertension 12/30/2007 Overview (08/18/2020): BP goal is <130/80. Esophageal reflux 12/30/2007 Resolved Problems Problem Noted Date Diagnosed Date Resolved Date Detrusor instability of bladder 03/17/2013 04/03/2013 S/P left knee arthroscopy w/ med. meniscectomy 01/15/2013 04/03/2013 Ileus, postoperative 05/15/2012 013 Tubal ovarian abscess- full of purulent fluid (pending cultures) 05/09/2012 12/25/2012 Refusal of blood transfusion s as patient is Religious 04/29/2012 01/01/2013 Abdominal or pelvic swelling , mass, or lump, other specified site 04/29/2012 05/27/2012 Rectal bleeding 04/18/2012 01/01/2013 Encounters Date Type Department Care Team Description 11/26/2024 Orders Only [facility] [address] [place] [address] Provider, Abstract 11/21/2024 Abstract [facility] [address] [place] [address] Provider, Abstract 11/21/2024 Orders Only [facility] [address] [place] [address] Provider, Abstract 11/20/2024 Abstract [facility] [address] [place] [address] Provider, Abstract 11/20/2024 Orders Only [facility] [address] [place] [address] Provider, Abstract 11/18/2024 External Device Data STL ABSTRACTION Provider, Abstract 11/18/2024 External Device Data STL ABSTRACTION Provider, Abstract 11/18/2024 External Device Data STL ABSTRACTION Provider, Abstract 11/16/2024 9:27 PM CDT - 11/20/2024 5:01 PM CDT Hospital Encounter [facility] 4[address] Cardiac [address] [place] [address] Morales Ball DO Patel, Taksh, MD Dhakal, Prabin, MD Acute on chronic combined systolic and diastolic heart failure (CMS/HCC) Discharge Disposition: Home or Self Care 11/16/2024 Travel 10/30/2024 12:15 AM CDT - 10/30/2024 11:59 PM CDT Hospital Encounter [facility] Emergency Medical Services [place] [address] [facility] [address] [place] [phone] Ambulance, [facility] Discharge Disposition: [facility] 10/16/2024 2:18 PM CDT - 10/16/2024 11:59 PM CDT Hospital Encounter [facility] Physical Therapy [facility] [address] [phone] Armando Wilkinson DO Peters, Jeffrey B, Physical Therapist Discharge Disposition: Home or Self Care 10/09/2024 2:30 PM CDT - 10/09/2024 11:59 PM CDT Hospital Encounter [facility] Physical Therapy [facility] [address] [phone] Armando Wilkinson DO Peters, Jeffrey B, Physical Therapist Discharge Disposition: Home or Self Care 09/24/2024 2:20 PM CDT Office Visit [facility] Endocrinology [facility] [address] [place] [phone] Carrie Osuna PA Type 2 diabetes mellitus with hyperglycemia, with long-term current use of insulin ([facility]) (Primary Dx) 09/16/2024 Telephone [facility] Endocrinology [facility] [address] [place] [address] Carrie Osuna PA Patient Communication (Called to remind about upcoming appointment date and time as requested by pt and . 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 Gender Identity Not on file Sexual [...] Mass Index 34.12 11/16/2024 5:03 PM CDT Plan of Treatment Upcoming Encounters Date Type Department Care Team (Late st Contact Info) Description 03/26/2025 1:20 PM REAL ESTATE TRANSACTION MANAGER Office Visit [facility] Endocrinology [facility] [address] [place] [address] Carrie Osuna PA [address] [place] [address] Health Maintenance Due Date Last [...] 07/06/2021 07/06/2020, 03/23/2020, 03/01/2020, Additional history exists DTAP/TDAP/TD VACCINES (2 - T d or Tdap) 04/29/2022 04/29/2012 OSTEOPOROSIS SCREENING 2022 INFLUENZA VACCINE (#1) 2024 2, 01/19/2011, 03/28/2006 LDL CHOLESTEROL ANNUAL 03/17/2025 4, 07/06/2020, 09/03/2018 DIABETES HBA1C Q 6 MONTHS 05/20/20252024, 11/11/2024, 11/10/2024, Additional history exists Medical Devices Implanted Type Area Natural Gas Engineer Device Identifier Shelf Expiration Date Model / Serial / Lot Cath Dialysis Glidepath 14.5fr 24cm Std [id number] - [id number] Implanted:Qty: 1 on 11/18/2024 by Jose Anderson MD at [facility] Catheter Right: Chest BARD FADY VASC [id number] 03/22/2026 [id number] / / [id number] Procedures Procedure Name Priority Date/Time Associated Diagnosis Comments TELEMETRY REPORT 11/21/2024 2:44 AM CDT POC GLUCOSE Routine 11/20/2024 12:10 PM CDT HOME O2 EVAL (DESATURATION SCREEN) Pending Discharge 11/20/2024 10:21 AM CDT HOME O2 EVAL (DESATURATION SCREEN) Routine 11/20/2024 9:59 AM CDT POC GLUCOSE Routine 11/20/2024 7:33 AM CDT RENAL FUNCTION PANEL Routine 11/20/2024 5:18 AM CDT CBC WITH DIFFERENTIAL Routine 11/20/2024 5:18 AM CDT POC GLUCOSE Routine 11/19/2024 9:09 PM CDT POC GLUCOSE Routine 11/19/2024 5:20 PM CDT HEMODIALYSIS Routine 11/19/2024 2:14 PM CDT POC GLUCOSE Routine 11/19/2024 10:54 AM CDT ECHO COMPLETE Routine 11/19/2024 9:45 AM CDT POC GLUCOSE Routine 11/19/2024 7:49 AM CDT POC GLUCOSE Routine 11/19/2024 7:06 AM CDT POC GLUCOSE Routine 11/19/2024 6:57 AM CDT RENAL FUNCTION PANEL Routine 11/19/2024 5:25 AM CDT CBC WITH DIFFERENTIAL Routine 11/19/2024 5:25 AM CDT POC GLUCOSE [...] US RENAL Stat 11/17/2024 1:21 AM CDT HEMOGLOBIN A1C Routine 11/17/2024 12:57 AM CDT IRON, TIBC, AND PERCENT SATURATION Routine 11/17/2024 12:57 AM CDT BASIC METABOLIC PANEL Stat 11/17/2024 12:57 AM CDT CBC WITH DIFFERENTIAL Stat 11/17/2024 12:57 AM CDT TROPONIN 6 HR, 5TH GEN Timed Study 12:57 AM CDT TROPONIN 2 HR, 5TH GEN Timed Study 9:06 PM CDT XR CHEST PA OR AP 1 VW Stat 6:09 PM CDT TROPONIN BASELINE, 5TH GEN Stat 11/16/2024 5:26 PM CDT BRAIN NATRIURETIC PEPTIDE, BNP OR PROBNP Stat 11/16/2024 5:26 PM CDT COMPREHENSIVE METABOLIC PANEL Stat 11/16/2024 5:26 PM CDT PTT Stat 11/16/2024 5:26 PM CDT PROTIME-INR Stat 11/16/2024 5:26 PM CDT CBC WITH DIFFERENTIAL Stat 11/16/2024 5:26 PM CDT EKG 12-LEAD Stat 11/16/2024 5:12 PM CDT COMPREHENSIVE METABOLIC PANEL Routine 11/15/2024 10:55 AM CDT COMPREHENSIVE METABOLIC PANEL Routine 11/13/2024 10:23 AM CDT COMPREHENSIVE METABOLIC PANEL Routine 11/11/2024 10:29 AM CDT HEMOGLOBIN A1C Routine 11/11/2024 COMPREHENSIVE METABOLIC PANEL Routine 11/10/2024 10:21 AM CDT HEMOGLOBIN A1C Routine 11/10/2024 COMPREHENSIVE METABOLIC PANEL Routine 11/06/2024 11:06 AM CDT COMPREHENSIVE METABOLIC PANEL Routine 11/06/2024 10:26 AM CDT COMPREHENSIVE METABOLIC PANEL Routine 11/05/2024 10:27 AM CDT COMPREHENSIVE METABOLIC PANEL Routine 11/04/2024 10:28 AM CDT PROTIME-INR Routine 11/01/2024 COMPREHENSIVE METABOLIC PANEL Routine 10/31/2024 11:05 AM CDT COMPREHENSIVE METABOLIC PANEL Routine 10/30/2024 10:20 AM CDT COMPREHENSIVE METABOLIC PANEL Routine 10/28/2024 10:53 AM CDT LEFT HEART CATH Routine 10/27/2024 10:56 AM CDT ECHO COMPLETE Routine 10/23/2024 11:09 AM CDT NM PHARMACOLOGICAL STRESS TEST Routine 10/22/2024 11:07 AM CDT PROTIME-INR Routine 10/20/2024 ECHO COMPLETE Routine 10/17/2024 11:08 AM CDT COMPREHENSIVE METABOLIC PANEL Routine 10/17/2024 10:55 AM CDT LIPID PANEL Routine 03/17/2024 MICROALBUMIN/CREATININ E RATIO, RANDOM UR Routine 07/06/2020 11:54 AM CDT HM DIABETES EYE EXAM 01/05/2020 12:00 AM CDT MAMMO SCREEN BILAT W OR WO CAD Routine 12/29/2011 2:40 PM CDT Other screening mammogram from Last 3 Months or Most Recently Relevant to Health Maintenance Results * TELEMETRY REPORT (11/21/2024 2:44 AM CDT) us Provider Scanning ECG ORDERABLES Final Result * (ABNORMAL) POC GLUCOSE (11/20/2024 12:10 PM CDT) Only the most recent of17 resultswithin the time period is included. GLUCOSE POC 127(H) 74 - 99 mg/dL 11/20/2024 12:10 PM CDT [facility] SPECIMEN SOURCE, GLUCOSE POC Capillary 11/20/2024 12:10 PM CDT [facility] Blood, whole 11/20/2024 12:1 0 PM CDT 11/20/2024 12:24 PM CDT Jenn Jackson MD POINT OF CARE TESTING Final Res ult [facility] CLIA # [id number] [address] [address] [place] [address] * (ABNORMAL) CBC WITH DIFFERENTIAL (11/20/2024 5:18 AM CDT) Only the most recent of4 resultswithin the time period is included. WBC 11.1(H) 4.8 - 10.8 K/uL 11/20/2024 5:46 AM CDT [facility] RBC 3.20(L) 4.20 - 5.40 M/uL 11/20/2024 5:46 AM T [facility] HEMOGLOBIN 9.0(L) 12.0 - 16.0 g/dL 11/20/2024 5:46 AM T [facility] HEMATOCRIT 28.8(L) 36.0 - 46.0 % 11/20/2024 5:46 AM CDT [facility] MCV 90.0 84.0 - 103.0 fL 11/20/2024 5:46 AM CDT [facility] MCH 28.1 27.0 - 34.0 pg 11/20/2024 5:46 AM CDT [facility] MCHC 31.3 30.0 - 35.0 g/dL 11/20/2024 5:46 AM CDT [facility] PLATELETS 264 140 - 440 K/uL 11/20/2024 5:46 AM T [facility] MPV 10.8 8.9 - 12.8 fL 11/20/2024 5:46 AM T [facility] RDW 14.4 11.0 - 14.5 % 11/20/2024 5:46 AM [facility] RDW-STDEV 46.6 37.0 - 54.0 fL 11/20/2024 5:46 AM CDT [facility] NEUTROPHILS 67 42 - 75 % 11/20/2024 5:46 AM T [facility] LYMPHOCYTES 20(L) 24 - 44 % 11/20/2024 5:46 AM CDT [facility] MONOCYTES 9 2 - 10 % 11/20/2024 5:46 AM CDT [facility] EOSINOPHILS 4 0 - 7 % 11/20/2024 5:46 AM CDT [facility] BASOPHILS 1 0 - 1 % 11/20/2024 5:46 AM [facility] I[facility] GRANUL[facility]TES 1 0 - 2 % 11/20/2024 5:46 AM T [facility] NEUTROPHIL ABSOLUTE 7.38 2.00 - 8.00 K/uL 11/20/2024 5:46 AM [facility] LYMPHOCYTE ABSOLUTE 2.23 1.20 - 4.00 K/uL 11/20/2024 5:46 AM T [facility] MONOCYTE ABSOLUTE 0.96(H) 0.10 - 0.60 K/uL 11/20/2024 5:46 AM [facility] EOSINOPHIL ABSOLUTE 0.39 0.00 - 0.70 K/uL 11/20/2024 5:46 AM T [facility] [place] [facility] BASOPHILS ABSOLUTE 0.05 0.00 - 0.20 K/uL 11/20/2024 5:46 AM [facility] IMMATURE GRANULOCYTES ABSOLUTE 0.07 0.00 - 0.10 K/uL 11/20/2024 5:46 AM [facility] SMEAR REVIEWED: NA - Not Applicable 11/20/2024 5:46 AM [facility] [place] [facility] Blood Venipuncture / Unknown 11/20/2024 5:18 AM CDT 11/20/2024 5:37 AM CDT us Jenn Jackson MD HEMATOLOGY ORDERABLES Final Res ult [facility] FERNANDA # [id number] [address] [address] [place] [address] * (ABNORMAL) RENAL FUNCTION PANEL (11/20/2024 5:18 AM CDT) Only the most recent of2 resultswithin the time period is included. Pathologist [facility] SODIUM 139 136 - 145 mmol/L 11/20/2024 6:14 AM CDT [facility] POTASSIUM 3.8 3.5 - 5.1 mmol/L 11/20/2024 6:14 AM CDT [facility] CHLORIDE 102 98 - 107 mmol/L 11/20/2024 6:14 AM CDT [facility] CO2 26 22 - 29 mmol/L 11/20/2024 6:14 AM CDT [facility] CALCIUM 8.8 8.8 - 10.2 mg/dL 11/20/2024 6:14 AM CDT [facility] BUN 27(H) 8 - 23 mg/dL 11/20/2024 6:14 AM CDT [facility] CREATININE 2.86(H) 0.51 - 0.95 mg/dL 11/20/2024 6:14 AM CDT [facility] GLUCOSE 96 74 - 99 mg/dL 11/20/2024 6:14 AM CDT [facility] ALBUMIN 3.1(L) 3.5 - 5.2 g/dL 11/20/2024 6:14 AM CDT [facility] PHOSPHORUS 3.5 2.5 - 4.5 mg/dL 11/20/2024 6:14 AM CDT [facility] GFR 17(L) >=60 mL/min/1. 73 sq meter 11/20/2024 6:14 AM CDT [facility] Comment:eGFR calculated with 2020 CKD-EPI equation. Vegetarian diet, extremely high or low muscle mass, and may affect results. Cystatin C with Glomerular Filtration Rate is a suitable alternative for these patients. ANION GAP 11 9 - 20 mmol/L 11/20/2024 6:14 AM CDT [facility] Blood Venipuncture / Unknown 11/20/2024 5:18 AM CDT 11/20/2024 5:37 AM CDT us Jenn Jackson MD CHEMISTRY ORDERABLES Final Resu lt [facility] CLIA # [id number] [address] [address] * HEMODIALYSIS (11/19/2024 2:14 PM CDT) Narrative [facility] - 11/19/2024 2:14 PM CDT Tea Rosales MD 11/19/2024 4:25 PM [facility] - Procedure Note Primary Cook Chili: Dr. Tae Rosales PROCEDURE: Intermittent Hemodialysis INDICATION: [...] monitor for recovery Working on placement in [facility]. Will give HD day off tomorrow. Plan on next HD Sunday Tae Rosales MD, 11/19/2024 4:24 PM [facility] 11/19/24, 2:14 PM us Tae Rosales MD DIALYSIS ORDERABLES Edited R esult - Final [facility] SERVICES [facility] CLIA # [id number] [address] [id number] * ECHO COMPLETE - CONTRAST AND STRAIN IF INDICATED (11/19/2024 9:45 AM CDT) EJECTION FRACTION 41 INTERFACE SYSTEM 11/19/2024 7:42 AM CDT Narrative INTERFACE SYSTEM - 11/19/2024 10:05 AM CDT [facility] Cardiovascular Services Echocardiography Laboratory [address] [place] [id number] Transthoracic Echocardiography Patient: Sandra Lemus Study ID: ECHO COMPLETE - Gender: F : 1955 Age: 69 Room: [facility] Study Date: 11/19/2024 Pt Status: Inpatient Study Time: 07:42:28 AM CSN #: [id number] Ordering:Bryan Ramirez Rough Rice Tender: Maren Martinez Indications and History: Atrial fibrillation. HF, Cardiomyopathy; [...] (H) pretty values outside specified reference range. [facility] Echo Labs are accredited with the Intersocietal Accreditation Commission - Echocardiography. Prepared and Electronically Authenticated Pino Soni Confirmed 11/19/2024 10:05 Procedure Note Pino Soni MD - 11/19/2024 [facility] Cardiovascular Services Echocardiography Laboratory [address] [place] [id number] Transthoracic Echocardiography Patient: Sandra Lemus Study ID: ECHO COMPLETE- Gender: F : 1955 Age: 69 Room: [facility] Study Date: 11/19/2024 Pt Status: Inpatient Study Time: 07:42:28 AM CSN #: [id number] Ordering:Bryan Ramirez Rough Rice Tender: Maren Martinez Indications and History: Atrial fibrillation. HF, Cardiomyopathy; [...] (H) pretty values outside specified reference range. [facility] Echo Labs are accredited with the[facility] Accreditation Commission - Echocardiography. Prepared and Electronically Authenticated Pino Soni Confirmed 11/19/2024 10:05 Bryan Ramirez MD ORDERABLES Final Result Performing Organization Address City/State/[facility] Co de Phone Number INTERFACE SYSTEM Refer to clinic/hospital department * ACUTE HEPATITIS PANEL (11/18/2024 10:45 AM CDT) HEPATITIS B SURFACE AG NON-REACT TOY Non-react toy 11/18/2024 12:13 PM CDT [facility] Comment:A non-reactive test result does not exclude the possibility of exposure to or infection with hepatitis B. HEPATITIS B CORE IGM NON-REACT TOY Non-react toy 11/18/2024 12:13 PM CDT [facility] Comment:IgM antibodies to HB c were not detected; does not exclude the possibility of exposure to HBV. HEPATITIS A IGM Non-react toy Non-react toy 11/18/2024 12:13 PM CDT [facility] Comment:A negative test resu lt does not exclude the possibility of exposure to Hepatitis A virus. HEPATITIS C AB NON-REACT TOY Non-react toy 11/18/2024 12:13 PM CDT [facility] [place] [facility] Comment:Antibodies to HCV we re not detected, does not exclude the possibility of exposure to HCV. Blood Venipuncture / Unknown 11/18/2024 10:45 AM CDT 11/18/2024 11:36 AM CDT us Tae Rosales MD CHEMISTRY ORDERABLES Final R esult [facility] CLIA # [id number] [address] [place] [address] * IR VENOUS ACCESS (11/18/2024 8:51 AM [...] documented in the medical record on the [facility], 'Sedative/Analgesic Administration for Diagnostic and Therapeutic Procedures'. Please see nursing flow sheets for dosage and time. Sedation was administered by a trained independent observer. I personally supervised 19 minutes of sedation. CONTRAST: None FLUOROSCOPY TIME: 0.6 minutes CATHETER: 14.5 Serbian, 19 cm tip to cuff catheter ESTIMATED [...] and the needle exchanged for a 5 Serbian transitional dilator. A 0.035-inch wire was advanced [...] skin tract was dilated and a 15 Serbian dilator peel-away combination placed over the wire. [...] documented in the medical record on the [facility], 'Sedative/Analgesic Administration for Diagnostic and Therapeutic Procedures'. Please see nursing flow sheets for dosage and time. Sedation was administered by a trained independent observer. I personally supervised 19 minutes of sedation. CONTRAST: None FLUOROSCOPY TIME: 0.6 minutes CATHETER: 14.5 Serbian, 19 cm tip to cuff catheter ESTIMATED [...] and the needle exchanged for a 5 Serbian transitional dilator. A 0.035-inch wire was advanced [...] skin tract was dilated and a 15 Serbian dilator peel-away combination placed over the wire. [...] internal jugular tunneled hemodialysis catheter as described. Tae Rosales MD IR ORDERABLES Final Result * (ABNORMAL) PROTIME-INR (11/18/2024 4:19 AM CDT) Only the most recent of4 resultswithin the time period is included. PROTIME 15.3(H) 12.7 - 14.9 Seconds 11/18/2024 5:19 AM CDT [facility] INR 1.1 0.8 - 1.2 11/18/2024 5:19 AM CDT [facility] [facility] Blood Venipuncture / Unknown 11/18/2024 4:19 AM CDT 11/18/2024 4:54 AM CDT Narrative [facility] - 11/18/2024 5:19 AM CDT Expected Values for INR: DVT/PE Goal INR 2.5; range 2.0 - 3.0 Valve Replacement Tissue Goal INR 2.5; range 2.0 - 3.0 Valve Replacement Mechanical Goal INR 3.0; range 2.5 - 3.5 POST-NE Goal INR 2.5; range 2.0 - 3.0 or Goal INR 3.0; range 2.5 - 3.5 Atrial Fibrillation Goal INR 2.5; range 2.0 - 3.0 Ischemic Stroke Goal INR 2.5; range 2.0 - 3.0 us Tae Rosales MD HEMATOLOGY ORDERABLES Final Result [facility] CLIA # [id number] [address] [place] [address] * US RENAL (11/17/2024 1:21 AM CDT) [...] cysts. Otherwise unremarkable exam. Bryan Ramirez MD ORDERABLES Final Result * (ABNORMAL) TROPONIN 6 HR, 5TH GEN (11/17/2024 12:57 AM CDT) TROPONIN T, 6 HR 5TH GEN 57(H) <11 ng/L 11/17/2024 1:35 AM CDT [email or web address] DELTA 6HR TROPONIN T -5 See Interp. 11/17/2024 1:35 AM CDT [facility] [place] [facility] Blood Venipuncture / Unknown 11/17/2024 12:57 AM CDT 11/17/2024 1:03 AM CDT Narrative [facility] LABORATORY [facility] - 11/17/2024 1:35 AM CDT Troponin elevated. Delta indeterminate. Delay in collection of timed specimen beyond recommended collection interval. Results must be interpreted in clinical context. us Mercedes Thompson NP CHEMISTRY ORDERABLES Final Re sult Performing Organization Address [facility] de Phone Number [facility] CLIA # [id number] [address] [place] [address] [place] [address] * (ABNORMAL) IRON, TIBC, AND PERCENT SATURATION (11/17/2024 12:57 AM CDT) IRON 37 37 - 145 ug/dL 11/17/2024 10:10 AM CDT [facility] TIBC 280 250 - 450 ug/dL 11/17/2024 10:10 AM CDT [facility] IRON % SATURATION 13(L) 15 - 60 % 11/17/2024 10:10 AM CDT [facility] Blood Venipuncture / Unknown 11/17/2024 12:57 AM CDT 11/17/2024 1:03 AM CDT Tae Rosales MD CHEMISTRY ORDERABLES Final R esult Performing Organization Address [facility] de Phone Number [facility] CLIA # [id number] [address] [place] [address] * (ABNORMAL) HEMOGLOBIN A1C (11/17/2024 12:57 AM CDT) Only the most recent of3 resultswithin the time period is included. HEMOGLOBIN A1C 8.3(H) <=5.6 % 11/20/2024 11:26 AM CDT [facility] EST. AVG GLUCOSE, A1C 192 mg/dL 11/20/2024 11:26 AM CDT [facility] Blood Venipuncture / Unknown 11/17/2024 12:57 AM CDT 11/17/2024 1:01 AM CDT Narrative [facility] - 11/20/2024 11:26 AM CDT HGB A1C INTERPRETATION NORMAL: <5.7% PRE-DIABETES: 5.7 - 6.4% DIABETES: 6.5% OR GREATER us Jenn Jackson MD CHEMISTRY ORDERABLES Final Resu lt [facility] CLIA # [id number] [address] [place] [address] * (ABNORMAL) BASIC METABOLIC PANEL (11/17/2024 12:57 AM CDT) SODIUM 143 136 - 145 mmol/L 11/17/2024 1:36 AM [facility] POTASSIUM 5.8(H) 3.5 - 5.1 mmol/L 11/17/2024 1:36 AM [facility] CHLORIDE 108(H) 98 - 107 mmol/L 11/17/2024 1:36 AM [facility] CO2 24 22 - 29 mmol/L 11/17/2024 1:36 AM [facility] CALCIUM 9.2 8.8 - 10.2 mg/dL 11/17/2024 1:36 AM [facility] BUN 71(H) 8 - 23 mg/dL 11/17/2024 1:36 AM [facility] CREATININE 4.09(H) 0.51 - 0.95 mg/dL 11/17/2024 1:36 AM [facility] GLUCOSE 228(H) 74 - 99 mg/dL 11/17/2024 1:36 AM [facility] GFR 11(L) >=60 mL/min/1. 73 sq meter 11/17/2024 1:36 AM [facility] Comment:eGFR calculated with 2020 CKD-EPI equation. Vegetarian diet, extremely high or low muscle mass, and may affect results. Cystatin C with Glomerular Filtration Rate is a suitable alternative for these patients. ANION GAP 11 9 - 20 mmol/L 11/17/2024 1:36 AM CDT [facility] Blood Venipuncture / Unknown 11/17/2024 12:57 AM CDT 11/17/2024 1:03 AM CDT us Bryan Ramirez MD CHEMISTRY ORDERABLES Final Resul t Performing Organization Address City/[facility]/ZIP Co de Phone Number [facility] CLIA # [id number] [address] [address] [place], [place] [address] * (ABNORMAL) TROPONIN 2 HR, 5TH GEN (11/16/2024 9:06 PM CDT) TROPONIN T, 2 HR 5TH GEN 61(H) <=10 ng/L 11/16/2024 10:25 PM CDT [facility] DELTA 2HR TROPONIN T -1 See Interp. 11/16/2024 10:25 PM CDT [facility] Blood Venipuncture / Unknown 11/16/2024 9:06 PM CDT 11/16/2024 9:54 PM CDT Narrative [facility] - 11/16/2024 10:25 PM CDT Troponin elevated. Delta not changing. Delay in collection of timed specimen beyond recommended collection interval. Results must be interpreted in clinical context. us Mercedes Thompson NP CHEMISTRY ORDERABLES Final Re sult Performing Organization Address [facility]/ZIP Co de Phone Number [facility] CLIA # [id number] [address] [address] * XR CHEST PA OR AP 1 [...] Bibasilar airspace opacities represent edema or atelectasis. Mercedes Thompson NP DIAGNOSTIC IMAGING ORDERABLES Final Result * (ABNORMAL) TROPONIN BASELINE, 5TH GEN (11/16/2024 5:26 PM CDT) TROPONIN T, BASELINE 5TH GEN 62(H) <=10 ng/L 11/16/2024 6:13 PM CDT [facility] [place] [facility] Blood Venipuncture / Unknown 11/16/2024 5:26 PM CDT 11/16/2024 5:41 PM CDT Narrative [facility] LABORATORY [facility] - 11/16/2024 6:13 PM CDT Troponin elevated. Mercedes Marilyn Ziehr TEST AND RESEARCH REACTOR OPERATOR CHEMISTRY ORDERABLES Final Re sult [facility] CLIA # [id number] [address] [address] * PTT (11/16/2024 5:26 PM CDT) PTT 31.2 24.8 - 37.2 seconds 11/16/2024 5:52 PM CDT [facility] Blood Venipuncture / Unknown 11/16/2024 5:26 PM CDT 11/16/2024 5:40 PM CDT Narrative [facility] - 11/16/2024 5:52 PM CDT Therapeutic Range: Hi-level PE/DVT heparin protocol 80.1 - 95.0 sec Lo-level PE/DVT heparin protocol 70.1 - 85.0 sec Cardiac Heparin Protocol 70.1 - 100.0 sec Mercedes Thompson TEST AND RESEARCH REACTOR OPERATOR HEMATOLOGY ORDERABLES Final R esult [facility] CLIA # [id number] [address] [address] * (ABNORMAL) BRAIN NATRIURETIC PEPTIDE, BNP OR PROBNP (11/16/2024 5:26 PM CDT) PROBNP, N TERMINAL 23,933(H) 0 - 125 pg/mL 11/16/2024 6:17 PM CDT [facility] Comment: INTERPRETIVE COMMENT based on diagnosis: Diagnostic [...] 11/16/2024 5:41 PM CDT us Mercedes Thompson TEST AND RESEARCH REACTOR OPERATOR CHEMISTRY ORDERABLES Final Re sult [facility] CLIA # [id number] [address] [address] [place] [address] * (ABNORMAL) COMPREHENSIVE METABOLIC PANEL (11/16/2024 5:26 PM CDT) Only the most recent of13 resultswithin the time period is included. SODIUM 142 136 - 145 mmol/L 11/16/2024 6:19 PM CDT [facility] POTASSIUM 5.5(H) 3.5 - 5.1 mmol/L 11/16/2024 6:19 PM CDT [facility] CHLORIDE 105 98 - 107 mmol/L 11/16/2024 6:19 PM CDT [facility] CO2 23 22 - 29 mmol/L 11/16/2024 6:19 PM CDT [facility] CALCIUM 9.0 8.8 - 10.2 mg/dL 11/16/2024 6:19 PM T [facility] BUN 70(H) 8 - 23 mg/dL 11/16/2024 6:19 PM T [facility] CREATININE 4.08(H) 0.51 - 0.95 mg/dL 11/16/2024 6:19 PM T [facility] GLUCOSE 279(H) 74 - 99 mg/dL 11/16/2024 6:19 PM T [facility] TOTAL PROTEIN 7.2 6.4 - 8.3 g/dL 11/16/2024 6:19 PM CDT [facility] ALBUMIN 3.4(L) 3.5 - 5.2 g/dL 11/16/2024 6:19 PM CDT [facility] BILIRUBIN TOTAL 0.2 0.0 - 1.0 mg/dL 11/16/2024 6:19 PM CDT [facility] ALKALINE PHOSPHATASE 125(H) 35 - 104 U/L 11/16/2024 6:19 PM CDT [facility] AST 11 10 - 35 U/L 11/16/2024 6:19 PM CDT [facility] ALT 14 <=35 U/L 11/16/2024 6:19 PM CDT [facility] GFR 11(L) >=60 mL/min/1. 73 sq meter 11/16/2024 6:19 PM CDT [facility] Comment:eGFR calculated with 2020 CKD-EPI equation. Vegetarian diet, extremely high or low muscle mass, and may affect results. Cystatin C with Glomerular Filtration Rate is a suitable alternative for these patients. ANION GAP 14 9 - 20 mmol/L 11/16/2024 6:19 PM CDT [facility] Blood Venipuncture / Unknown 11/16/2024 5:26 PM CDT 11/16/2024 5:41 PM CDT us Mercedes Thompson TEST AND RESEARCH REACTOR OPERATOR CHEMISTRY ORDERABLES Final Re sult [facility] CLIA # [id number] [facility] [address] * EKG 12-LEAD (11/16/2024 5:12 PM CDT) 11/16/2024 5:12 PM CDT Narrative INTERFACE SYSTEM - 11/17/2024 6:46 AM CDT [address] [address] Test Date: 2024-11-16 Pat Name: SANDRA LEMUS Department: 11 Room: Gender: Female Cellar Pumper: [id number] : 1955 Requested By: Order Number: [id number] Reading MD: Anayeli Hernandez Measurements Intervals [place] Rate: 63 P: 37 PA: 274 QRS: -9 QRSD: 102 T: 43 QT: 440 QTc: 450 Interpretive Statements Sinus rhythm with 1st degree AV block Minimal voltage criteria for LVH, may be normal variant ( Ansley product ) Anteroseptal infarct, age undetermined Abnormal ECG Electronically Signed On 11-17-2024 6:46:31 CDT by Anayeli Hernandez Procedure Note Provider, Historical - 11/17/2024 [address] [place] [address] Test Date: 2024-11-16 Pat Name: SANDRA LEMUS Department: 11 Room: Gender: Female Cellar Pumper: [id number] : 1955 Requested By: Order Number: [id number] Reading MD: Anayeli Hernandez Measurements Intervals [place] Rate: 63 P: 37 PA: 274 QRS: -9 QRSD: 102 T: 43 QT: 440 QTc: 450 Interpretive Statements Sinus rhythm with 1st degree AV block Minimal voltage criteria for LVH, may be normal variant ( Juan M product) Anteroseptal infarct, age undetermined Abnormal ECG Electronically Signed On 11-17-2024 6:46:31 CDT by Anayeli Hernandez us Mercedes Thompson NP ECG ORDERABLES Final Result INTERFACE SYSTEM Refer to clinic/hospital department * LEFT HEART CATH (10/27/2024 10:56 AM CDT) us Abstract Provider CUP CATH ORDERABLES Final Resu lt * ECHO COMPLETE (10/23/2024 11:09 AM CDT) Only the most recent of2 resultswithin the time period is included. us Abstract Provider ECHO ORDERABLES Final Result * NM PHARMACOLOGICAL STRESS TEST (10/22/2024 11:07 AM CDT) us Abstract Provider NM ORDERABLES Final Result * LIPID PANEL (03/17/2024) ABSTRACTED CHOLESTEROL 245 ABSTRACTED TRIGLYCERIDE 387 ABSTRACTED HDL 41 ABSTRACTED LDL CALCULATED 127 Blood 03/17/2024 Abstract Provider CHEMISTRY ORDERABLES Final Res ult * (ABNORMAL) MICROALBUMIN/CREATININE RATIO, RANDOM UR (07/06/2020 11:54 AM CDT) MICROALBUMIN, URINE 38.3 No Reference Range mg/dL 07/06/2020 2:17 PM CDT [facility] CREATININE, URINE 75.3 29.0 - 226.0 mg/dL 07/06/2020 2:17 PM CDT [facility] Comment:Reference Range vari es with fluid intake and diet. MICROALBUMIN/ CREAT RATIO, UR 508.6(H) <25.0 mg/g 07/06/2020 2:17 PM CDT [facility] Urine URINE SPECIMEN OBTAINED BY CLEAN CATCH PROCEDURE / Unknown Collection / Unknown 07/06/2020 11:54 AM CDT 07/06/2020 12:19 PM CDT Narrative [facility] - 07/06/2020 2:17 PM CDT Condition Microalbumin/Creat ratio Normal Males <17 Normal Females <25 Microalbuminuria Males 17-299 Microalbuminuria Females 25-299 Overt proteinuria >=300 Corey Lou MD URINE ORDERABLES Final Result [facility] CLIA# [id number] [address] [place] [address] * DIABETES EYE EXAM (01/05/2020 12:00 AM [...] Most Recently Relevant to Health Maintenance Insurance [facility] MEDIC[facility] HMO Advance Directives For more information, please contact: [phone] Documents on File Type Date Recorded Patient Teacher Education Instructor Expl anation Advance Directive POA 07/06/2020 11:34 AM Advance Directive POA * Full Code (Latest Code Status on File) Date Activated Date Inactivated Comments 11/16/2024 11:33 PM 11/20/2024 7:02 PM
--- OUTSIDE RECORDS SUMMARY | 2024-11-26 17:00 | XMS_ITS | Encounter Summary ---
Author Organization [facility] Address [address] [place] [address] Care Team Providers Care Die Cleaner Name Role Phone Mau Terry MD Primary Care Provider [phone] Encounter Details Date Type Department Care Team (Latest Contact Info) Description 02/29/[address] [facility] [address] [facility] [address] [place] [address] Bryanna Bui MD NO ADDRESS ON FILE Lump or mass in breast (Primary Dx) Social History Tobacco Use Types Packs/Day Years Used Date Smoking Tobacco: Never Assessed Comments Unknown Sex and Gender Information Value Date Recorded Sex Assigned at Not on file Legal Sex Female 3:01 AM GOLD LAYER Gender Identity Not on file Sexual Orientation Not on file documented as of this encounter Plan of Treatment Not on file documented as of this encounter Visit Diagnoses Diagnosis Lump or mass in breast- Primary documented in this encounter Care Teams Die Cleaner Relationship Specialty Start Date End Date Mau Terry MD [address] [place] [phone] PCP - General 02/28/06 07/12/14 documented as of this encounter
--- OUTSIDE RECORDS SUMMARY | 2024-11-26 17:00 | XMS_ITS | Encounter Summary ---
Author Organization [facility] Address [address] [place] [address] Care Team Providers Care Laborer Rags Name Role Phone Mau Terry MD Primary Care Provider [phone] Encounter Details Date Type Department Care Team (Latest Contact Info) Description 03/28/2006 Outpatient Historical [facility] [address] [place] [address] Mau Terry MD [address] [place] [phone] Unspecified Essential Hypertension (Primary Dx); DM w/o Complication Type II (CMS/HCC); Vaccin Strep Pneumoniae; Vaccine for influenza Social History Tobacco Use Types Packs/Day Years Used Date Smoking Tobacco: Never Assessed Comments Unknown Sex and Gender Information Value Date Recorded Sex Assigned at Not on file Legal Sex Female 3:01 AM DIRECTOR INDUSTRIAL Gender Identity Not on file Sexual Orientation [...] influenza documented in this encounter Care Teams Laborer Rags Relationship Specialty Start Date End Date Mau Terry MD [address] [place] [phone] PCP - General 02/28/06 07/12/14 documented as of this encounter
--- OUTSIDE RECORDS SUMMARY | 2024-11-26 17:00 | XMS_ITS | Encounter Summary ---
Author Organization [facility] Address [address] [place] [address] Care Team Providers Care Oceanography Teacher Name Role Phone Mau Terry MD Primary Care Provider [phone] Encounter Details Date Type Department Care Team (Latest Contact Info) Description 02/08/[address] [facility] Medicine [place] [address] [facility] [address] [place] [phone] Sven Kimball, [place] NO ADDRESS ON FILE ELEV TRANSAMINASE/LDH (Primary Dx); Plantar fibromatosis; PURE HYPERGLYCERIDEMIA; Pain in limb Social History Tobacco Use Types Packs/Day Years Used Date Smoking Tobacco: Never Assessed Comments Unknown Sex and Gender Information Value Date Recorded Sex Assigned at Not on file Legal Sex Female 3:01 AM ECHOCARDIOLOGIST Gender Identity Not on file Sexual Orientation Not on file documented as of this encounter Plan of Treatment Not on file documented as of this encounter Visit Diagnoses Diagnosis Nonspecific elevation of levels of transaminase or lactic acid dehydrogenase (LDH)- Primary Plantar fibromatosis Plantar fascial fibromatosis Pure hyperglyceridemia Pain in limb Pain in soft tissues of limb documented in this encounter Care Teams Oceanography Teacher Relationship Specialty Start Date End Date Mau Terry MD [address] [place] [phone] PCP - General 02/28/06 07/12/14 documented as of this encounter
--- OUTSIDE RECORDS SUMMARY | 2024-11-26 17:00 | XMS_ITS | Encounter Summary ---
Author Organization [facility] Address [address] [facility] Attn: [place] [address] Care Team Providers Care Forensic Structural Engineer Name Role Phone Mau Terry MD Primary Care Provider [phone] Encounter Details Date Type Department Care Team (Late st Contact Info) Description 02/08/2005 Outpatient Historical [facility] DO NO ADDRESS ON FILE Social History Tobacco Use Types Packs/Day Years Used Date Smoking Tobacco: Never Assessed Comments Unknown Sex and Gender Information Value Date Recorded Sex Assigned at Not on file Legal Sex Female 3:01 AM GROUNDING ENGINEER Gender Identity Not on file Sexual [...] on filedocumented in this encounter Care Teams Forensic Structural Engineer Relationship Specialty Start Date End Date Mau Terry MD [facility] [address] [place] [phone] PCP - General 02/28/06 07/12/14 documented as of this encounter
--- OUTSIDE RECORDS SUMMARY | 2024-11-26 17:00 | XMS_ITS | Encounter Summary ---
Author Organization [facility] Address [address] [place] [address] Care Team Providers Care Oracle Solutions Architect Name Role Phone Mau Terry MD Primary Care Provider [phone] Encounter Details Date Type Department Care Team (Latest Contact Info) Description 03/30/2004 Outpatient Historical [facility] [address] [place] [address] Anselmo Lopez MD [address] [address] CONDUCT HEARING LOSS NOS (Primary Dx); PERIPHERAL VERTIGO NOS; IMPACTED CERUMEN; BENIGN PARXYSMAL VERTIGO Social History Tobacco Use Types Packs/Day Years Used Date Smoking Tobacco: Never Assessed Comments Unknown Sex and Gender Information Value Date Recorded Sex Assigned at Not on file Legal Sex Female 3:01 AM [employer] ADVISOR Gender Identity Not on file Sexual Orientation Not on file documented as of this encounter Plan of Treatment Not on file documented as of this encounter Visit Diagnoses Diagnosis Unspecified conductive hearing loss- Primary Peripheral vertigo, unspecified Impacted cerumen Benign paroxysmal positional vertigo documented in this encounter Care Teams Oracle Solutions Architect Relationship Specialty Start Date End Date Mau Terry MD [address] [place] [phone] PCP - General 02/28/06 07/12/14 documented as of this encounter
--- OUTSIDE RECORDS SUMMARY | 2024-11-26 17:00 | XMS_ITS | Encounter Summary ---
Author Organization [facility] Address [address] [place] [address] Care Team Providers Care Broach Operator Name Role Phone Mau Terry MD Primary Care Provider [phone] Encounter Details Date Type Department Care Team (Latest Contact Info) Description 06/08/2004 Outpatient Historical [facility] Medicine [place] [address] [facility] [address] [place] [phone] Sven Kimball, [place] NO ADDRESS ON FILE BONE/SKIN NEOPLASM NOS (Primary Dx); HEAD INJURY UNSPECIFIED Social History Tobacco Use Types Packs/Day Years Used Date Smoking Tobacco: Never Assessed Comments Unknown Sex and Gender Information Value Date Recorded Sex Assigned at Not on file Legal Sex Female 3:01 AM VIDEO GAME DESIGNER Gender Identity Not on file Sexual Orientation Not on file documented as of this encounter Plan of Treatment Not on file documented as of this encounter Visit Diagnoses Diagnosis Neoplasm of unspecified nature of bone, soft tissue, and skin- Primary Head injury, unspecified documented in this encounter Care Teams Broach Operator Relationship Specialty Start Date End Date Mau Terry MD [address] [place] [phone] PCP - General 02/28/06 07/12/14 documented as of this encounter
--- OUTSIDE RECORDS SUMMARY | 2024-11-26 17:00 | XMS_ITS | Encounter Summary ---
Author Organization [facility] Address [address] [place] [address] Care Team Providers Care Rouge Miller Name Role Phone Mau Terry MD Primary Care Provider [phone] Reason for Referral * Outpatient Services (Routine) - Closed Specialty Diagnoses / Procedures Referred By Contac t Referred To Contact Diagnoses Lump or mass in breast Procedures MAMMO DIGITAL DIAG BILAT Mau Terry MD [address] [place] [phone] Phone: tel: fax: Referral ID Status Reason Start Date Expiration Date Visits Re quested Visits Authorized [id number] Closed 11/30/2010 11/30/2011 1 1 Encounter Details Date Type Department Care Team (Late st Contact Info) Description 11/30/2010 Ancillary Orders [facility] [address] [phone] Mau Terry MD [address] [place] [phone] Lump or mass in breast Social History Tobacco Use Types Packs/Day Years Used Date Smoking Tobacco: Never Smokeless Tobacco: Never Alcohol Use Standard Drinks/Week Comments No 0 (1 standard drink = 0.6 oz pur e alcohol) Comments No Sex and Gender Information Value Date Recorded Sex Assigned at Not on file Legal Sex Female 3:01 AM VAULT TELLER Gender Identity Not on file Sexual Orientation [...] by the Computer Aided Detection System (CAD), [employer] ImageImage[employer]pikecker, Version 8.3. RIGHT BREAST ULTRASOUND: Sonographic evaluation [...] and calcifications are stable with the study [id number]. On the right, the distribution of the tissue appears to be stable as well.The tissue is heterogeneously dense. Scattered areas of nodularity areidentified but no discrete or worrisome mass was noted. Furtherevaluation sonographically was carried out. This digital mammogram was also analyzed by the Computer Aided DetectionSystem (CAD), [employer] ImageChecker, Version 8.3. RIGHT BREAST ULTRASOUND: Sonographic [...] breast documented in this encounter Care Teams Rouge Miller Relationship Specialty Start Date End Date Mau Terry MD [address] [place] [phone] PCP - General 02/28/06 07/12/14 documented as of this encounter
--- OUTSIDE RECORDS SUMMARY | 2024-11-26 17:00 | XMS_ITS | Encounter Summary ---
Author Organization [facility] Address [address] [place] [address] Care Team Providers Care Support Team Assoc Name Role Phone Mau Terry MD Primary Care Provider [phone] Encounter Details Date Type Department Care Team (Latest Contact Info) Description 02/23/2006 Outpatient Historical [facility] Medicine-[place] [address] [place] [address] Mau Terry MD [address] [place] [phone] Routine Medical Exam (Primary Dx); Dysphagia; Other Abnormal Blood Chemistry; Unspecified Essential Hypertension Social History Tobacco Use Types Packs/Day Years Used Date Smoking Tobacco: Never Assessed Comments Unknown Sex and Gender Information Value Date Recorded Sex Assigned at Not on file Legal Sex Female 3:01 AM BRIDGES SUPERVISOR Gender Identity Not on file Sexual Orientation Not on file documented as of this encounter Plan of Treatment Not on file documented as of this encounter Visit Diagnoses Diagnosis Routine medical exam- Primary Routine general medical examination at a health care facility Dysphagia Other abnormal blood chemistry Unspecified essential hypertension documented in this encounter Care Teams Support Team Assoc Relationship Specialty Start Date End Date Mau Terry MD [address] [place] [phone] PCP - General 02/28/06 07/12/14 documented as of this encounter
--- OUTSIDE RECORDS SUMMARY | 2024-11-26 17:00 | XMS_ITS | Encounter Summary ---
Author Organization [facility] Address [address] [place] [address] Care Team Providers Care Environmental Health Safety Engineer Name Role Phone Mau Terry MD Primary Care Provider [phone] Encounter Details Date Type Department Care Team (Latest Contact Info) Description 09/13/2004 Outpatient Historical [facility] Medicine- [place] [place] [id number] Sven Kimball, PA NO ADDRESS ON FILE OTHER UNSPEC SLEEP APNEA (Primary Dx); UNCERTAIN BEHAV NEOPL SKIN Social History Tobacco Use Types Packs/Day Years Used Date Smoking Tobacco: Never Assessed Comments Unknown Sex and Gender Information Value Date Recorded Sex Assigned at Not on file Legal Sex Female 3:01 AM RESEARCH GROUP DIRECTOR Gender Identity Not on file Sexual Orientation Not on file documented as of this encounter Plan of Treatment Not on file documented as of this encounter Visit Diagnoses Diagnosis Unspecified sleep apnea- Primary Neoplasm of uncertain behavior of skin documented in this encounter Care Teams Environmental Health Safety Engineer Relationship Specialty Start Date End Date Mau Terry MD [address] [place] [phone] PCP - General 02/28/06 07/12/14 documented as of this encounter
--- OUTSIDE RECORDS SUMMARY | 2024-11-26 17:00 | XMS_ITS | Encounter Summary ---
Author Organization [facility] Address [address] [place] [address] Care Team Providers Care Manager Assisted Living Name Role Phone Mau Terry MD Primary Care Provider [phone] Encounter Details Date Type Department Care Team (Latest Contact Info) Description 02/16/1998 Outpatient Historical [facility] Cardiology- [place] [address] [place] [address] Obed Mejia MD [address] [facility] [address] [place] [address] Palpitations (Primary Dx) Social History Tobacco Use Types Packs/Day Years Used Date Smoking Tobacco: Never Assessed Comments Unknown Sex and Gender Information Value Date Recorded Sex Assigned at Not on file Legal Sex Female 3:01 AM COMPOUND MACHINE OPERATOR Gender Identity Not on file Sexual Orientation Not on file documented as of this encounter Plan of Treatment Not on file documented as of this encounter Visit Diagnoses Diagnosis Palpitations- Primary documented in this encounter Care Teams Manager Assisted Living Relationship Specialty Start Date End Date Mau Terry MD [address] [place] [phone] PCP - General 02/28/06 07/12/14 documented as of this encounter
--- OUTSIDE RECORDS SUMMARY | 2024-11-26 17:00 | XMS_ITS | Encounter Summary ---
Author Organization [facility] Address [address] [place] [address] Care Team Providers Care Securities Research Analyst Name Role Phone Mau Terry MD Primary Care Provider [phone] Encounter Details Date Type Department Care Team (Latest Contact Info) Description 06/08/2004 Outpatient Historical [facility] [employer] [facility] [address] [place] [address] Sven Kimball PA NO ADDRESS ON FILE SEBORRHEIC KERATOSIS INFLAMED (Primary Dx) Social History Tobacco Use Types Packs/Day Years Used Date Smoking Tobacco: Never Assessed Comments Unknown Sex and Gender Information Value Date Recorded Sex Assigned at Not on file Legal Sex Female 3:01 AM POWER STATION OPERATOR Gender Identity Not on file Sexual Orientation Not on file documented as of this encounter Plan of Treatment Not on file documented as of this encounter Visit Diagnoses Diagnosis Inflamed seborrheic keratosis- Primary documented in this encounter Care Teams Securities Research Analyst Relationship Specialty Start Date End Date Mau Terry MD [address] [place] [phone] PCP - General 02/28/06 07/12/14 documented as of this encounter
--- OUTSIDE RECORDS SUMMARY | 2024-11-26 17:01 | XMS_ITS | Encounter Summary ---
Author Organization [facility] Address [address] [place] [address] Care Team Providers Care Mooner Name Role Phone Mau Terry MD Primary Care Provider [phone] Encounter Details Date Type Department Care Team (Latest Contact Info) Description 08/31/2006 Outpatient Historical [facility] Medicine-[place] [address] [place] [address] Mau Terry MD [address] [place] [phone] DM w/o Complication Type II (CMS/HCC) (Primary Dx); Unspecified Essential Hypertension; Lateral Epicondylitis; Unspecified Infective Otitis Externa Social History Tobacco Use Types Packs/Day Years Used Date Smoking Tobacco: Never Assessed Comments Unknown Sex and Gender Information Value Date Recorded Sex Assigned at Not on file Legal Sex Female 3:01 AM TRANSPORTATION ESCORT Gender Identity Not on file Sexual Orientation [...] unspecified documented in this encounter Care Teams Mooner Relationship Specialty Start Date End Date Mau Terry MD [address] [place] [phone] PCP - General 02/28/06 07/12/14 documented as of this encounter
--- OUTSIDE RECORDS SUMMARY | 2024-11-26 17:01 | XMS_ITS | Encounter Summary ---
Author Organization [facility] Address [address] [place] [address] Care Team Providers Care Machine Maintenance Name Role Phone Mau Terry MD Primary Care Provider [phone] Encounter Details Date Type Department Care Team (Latest Contact Info) Description 09/06/2000 Outpatient [facility] Facial Plastic Surgery[address] [place] [address] Tano Meneses MD NO ADDRESS ON FILE Follow-up examination, following unspecified surgery (Primary Dx) Social History Tobacco Use Types Packs/Day Years Used Date Smoking Tobacco: Never Assessed Comments Unknown Sex and Gender Information Value Date Recorded Sex Assigned at Not on file Legal Sex Female 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
--- OUTSIDE RECORDS SUMMARY | 2024-11-26 17:01 | XMS_ITS | Encounter Summary ---
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) Social History Tobacco Use Types Packs/Day Years Used Date Smoking Tobacco: Never Assessed Comments Unknown Sex and Gender Information Value Date Recorded Sex Assigned at Not on file 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
--- OUTSIDE RECORDS SUMMARY | 2024-11-26 17:01 | XMS_ITS | Encounter Summary ---
Author Organization [facility] Address [address] [place] [address] Care Team Providers Care Purification Operator Helper Name Role Phone Mau Terry MD Primary Care Provider [phone] Encounter Details Date Type Department Care Team (Late st Contact Info) Description 05/08/2000 Outpatient Historical [facility] Facial Plastic Surgery- [address] [address] Social History Tobacco Use Types Packs/Day Years Used Date Smoking Tobacco: Never Assessed Comments Unknown Sex and Gender Information Value Date Recorded Sex Assigned at Not on file Legal Sex Female 3:01 AM AUTOMOTIVE WARRANTY ADMINISTRATOR Gender Identity Not on file Sexual Orientation Not on file documented as of this encounter Plan of Treatment Not on file documented as of this encounter Visit Diagnoses Not on filedocumented in this encounter Care Teams Purification Operator Helper Relationship Specialty Start Date End Date Mau Terry MD [address] [place] [phone] PCP - General 02/28/06 07/12/14 documented as of this encounter
--- OUTSIDE RECORDS SUMMARY | 2024-11-26 17:01 | XMS_ITS | Encounter Summary ---
Author Organization [facility] Address [address] [place] [address] Care Team Providers Care Hardboard Panel Printer Name Role Phone Mau Terry MD Primary Care Provider [phone] Encounter Details Date Type Department Care Team (Latest Contact Info) Description 09/08/1998 Outpatient Historical [facility] [address] [facility] [address] [place] [address] Jamey Fraga MD NO ADDRESS ON FILE Other screening mammogram (Primary Dx) Social History Tobacco Use Types Packs/Day Years Used Date Smoking Tobacco: Never Assessed Comments Unknown Sex and Gender Information Value Date Recorded Sex Assigned at Not on file 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
--- OUTSIDE RECORDS SUMMARY | 2024-11-26 17:01 | XMS_ITS | Encounter Summary ---
Author Organization [facility] Address [address] [place] [address] Care Team Providers Care Playground Monitor Name Role Phone Mau Terry MD Primary Care Provider [phone] Reason for Referral * Outpatient Services (Routine) - Closed Specialty Diagnoses / Procedures Referred By Jaqueline t Referred To Contact Diagnoses Post mastoidectomy sequelae Excessive granulation tissue Procedures CT TEMPORAL BONE WO CONTRAST Twan Garcia PA [facility] [address] [place] [address] Phone: tel: fax: Referral ID Status Reason Start Date Expiration Date Visits Re quested Visits Authorized [id number] Closed 01/23/2012 01/22/2013 1 1 Encounter Details Date Type Department Care Team (Late st Contact Info) Description 01/23/2012 Ancillary Orders [facility] CT Scan [place] [address] [place] [phone] Twan Garcia PA [facility] [address] [place] [address] Post mastoidectomy sequelae; Excessive granulation tissue Social History Tobacco Use Types Packs/Day Years Used Date Smoking Tobacco: Never Smokeless Tobacco: Never Alcohol Use Standard Drinks/Week Comments No 0 (1 standard drink = 0.6 oz pur e alcohol) Comments No Sex and Gender Information Value Date Recorded Sex Assigned at Not on file Legal Sex Female 3:01 AM AUTOMATIC DATA PROCESSING PLANNER Gender Identity Not on file Sexual Orientation [...] tissue documented in this encounter Care Teams Playground Monitor Relationship Specialty Start Date End Date Mau Terry MD [address] [place] [phone] PCP - General 02/28/06 07/12/14 documented as of this encounter
--- OUTSIDE RECORDS SUMMARY | 2024-11-26 17:01 | XMS_ITS | Encounter Summary ---
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
--- OUTSIDE RECORDS SUMMARY | 2024-11-26 17:01 | XMS_ITS | Encounter Summary ---
Author Organization [facility] Address [address] [place] [address] Care Team Providers Care Senior Research Consultant Name Role Phone Mau Terry MD Primary Care Provider [phone] Encounter Details Date Type Department Care Team (Latest Contact Info) Description 12/13/2000 Outpatient [facility] Facial Plastic Surgery[address] [place] [address] Tano Meneses MD NO ADDRESS ON FILE Follow-up examination, following unspecified surgery (Primary Dx) Social History Tobacco Use Types Packs/Day Years Used Date Smoking Tobacco: Never Assessed Comments Unknown Sex and Gender Information Value Date Recorded Sex Assigned at Not on file Legal Sex Female 3:01 AM DIRECT MARKETING MANAGER Gender Identity Not on file Sexual Orientation Not on file documented as of this encounter Plan of Treatment Not on file documented as of this encounter Visit Diagnoses Diagnosis Follow-up examination, following unspecified surgery- Primary documented in this encounter Care Teams Senior Research Consultant Relationship Specialty Start Date End Date Mau Terry MD [address] [place] [phone] PCP - General 02/28/06 07/12/14 documented as of this encounter
--- OUTSIDE RECORDS SUMMARY | 2024-11-26 17:01 | XMS_ITS | Encounter Summary ---
Author Organization [facility] Address [address] [place] [address] Care Team Providers Care Machine Pan Greaser Name Role Phone Mau Terry MD Primary Care Provider [phone] Encounter Details Date Type Department Care Team (Latest Contact Info) Description 10/05/2000 Outpatient Historical [facility] Ear, Nose and Throat [address] [place] [address] Tenzin Vaughn C [address] [place] [address] Unspecified conductive hearing loss (Primary Dx); Chronic mastoiditis Social History Tobacco Use Types Packs/Day Years Used Date Smoking Tobacco: Never Assessed Comments Unknown Sex and Gender Information Value Date Recorded Sex Assigned at Not on file Legal Sex Female 3:01 AM PLANNED GIVING OFFICER Gender Identity Not on file Sexual Orientation Not on file documented as of this encounter Plan of Treatment Not on file documented as of this encounter Visit Diagnoses Diagnosis Unspecified conductive hearing loss- Primary Chronic mastoiditis documented in this encounter Care Teams Machine Pan Greaser Relationship Specialty Start Date End Date Mau Terry MD [address] [place] [phone] PCP - General 02/28/06 07/12/14 documented as of this encounter
--- OUTSIDE RECORDS SUMMARY | 2024-11-26 17:01 | XMS_ITS | Encounter Summary ---
Author Organization [facility] Address [address] [place] [address] Care Team Providers Care Machining Department Supervisor Name Role Phone Mau Terry MD Primary Care Provider [phone] Encounter Details Date Type Department Care Team (Latest Contact Info) Description 01/02/2002 Outpatient Historical [facility] Ear, Nose and Throat [address] [place] [address] [place] [address] Tenzin Vaughn [address] [place] [address] CHRONIC MASTOIDITIS (Primary Dx); DEGEN/VASCUL DIS EAR NOS Social History Tobacco Use Types Packs/Day Years Used Date Smoking Tobacco: Never Assessed Comments Unknown Sex and Gender Information Value Date Recorded Sex Assigned at Not on file Legal Sex Female 3:01 AM CLIENT RENEWAL SPECIALIST Gender Identity Not on file Sexual Orientation Not on file documented as of this encounter Plan of Treatment Not on file documented as of this encounter Visit Diagnoses Diagnosis Chronic mastoiditis- Primary Degenerative and vascular disorders of ear, unspecified documented in this encounter Care Teams Machining Department Supervisor Relationship Specialty Start Date End Date Mau Terry MD [address] [place] [phone] PCP - General 02/28/06 07/12/14 documented as of this encounter
--- OUTSIDE RECORDS SUMMARY | 2024-11-26 17:01 | XMS_ITS | Encounter Summary ---
Author Organization [facility] Address [address] [place] [address] Care Team Providers Care Medical Office Specialist Name Role Phone Mau Terry MD Primary Care Provider [phone] Encounter Details Date Type Department Care Team (Latest Contact Info) Description 04/04/2002 Outpatient Historical [facility] Ear, Nose and Throat [address] [place] [address] [place] [address] Jc Barth MD NO ADDRESS ON FILE IMPACTED CERUMEN (Primary Dx); CONDUCT HEARING LOSS NOS Social History Tobacco Use Types Packs/Day Years Used Date Smoking Tobacco: Never Assessed Comments Unknown Sex and Gender Information Value Date Recorded Sex Assigned at Not on file Legal Sex Female 3:01 AM AUTOMATION APPLICATION ENGINEER Gender Identity Not on file Sexual Orientation Not on file documented as of this encounter Plan of Treatment Not on file documented as of this encounter Visit Diagnoses Diagnosis Impacted cerumen- Primary Unspecified conductive hearing loss documented in this encounter Care Teams Medical Office Specialist Relationship Specialty Start Date End Date Mau Terry MD [address] [place] [phone] PCP - General 02/28/06 07/12/14 documented as of this encounter
--- OUTSIDE RECORDS SUMMARY | 2024-11-26 17:01 | XMS_ITS | Encounter Summary ---
Author Organization 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) Social History Tobacco Use Types Packs/Day Years Used Date Smoking Tobacco: Never Assessed Comments Unknown Sex and Gender Information Value Date Recorded Sex Assigned at Not on file 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
--- OUTSIDE RECORDS SUMMARY | 2024-11-26 17:01 | XMS_ITS | Encounter Summary ---
Author Organization [facility] Address [address] [place] [address] Care Team Providers Care Electrogalvanizing Machine Operator Name Role Phone Mau Terry MD Primary Care Provider [phone] Encounter Details Date Type Department Care Team (Latest Contact Info) Description 05/10/2006 Outpatient Historical [facility] Endoscopy [place] [address] [place] [address] Frederick Choudhury MD [address] [place] [address] Dysphagia (Primary Dx) Social History Tobacco Use Types Packs/Day Years Used Date Smoking Tobacco: Never Assessed Comments Unknown Sex and Gender Information Value Date Recorded Sex Assigned at Not on file Legal Sex Female 3:01 AM ACUTE CARE NURSING ASSISTANT Gender Identity Not on file Sexual Orientation Not on file documented as of this encounter Plan of Treatment Not on file documented as of this encounter Visit Diagnoses Diagnosis Dysphagia- Primary documented in this encounter Care Teams Electrogalvanizing Machine Operator Relationship Specialty Start Date End Date Mau Terry MD [address] [place] [phone] PCP - General 02/28/06 07/12/14 documented as of this encounter
--- OUTSIDE RECORDS SUMMARY | 2024-11-26 17:01 | XMS_ITS | Encounter Summary ---
Author Organization [facility] Address [address] [place] [address] Care Team Providers Care Scrap Carrier Name Role Phone Mau Terry MD Primary Care Provider [phone] Encounter Details Date Type Department Care Team (Latest Contact Info) Description 02/12/2002 Outpatient Historical [facility] Ear, Nose and Throat [address] [place] [address] [place] [address] Tenzin Vaughn [address] [place] [address] CONDUCT HEARING LOSS NOS (Primary Dx); CHRONIC MASTOIDITIS; PERFORAT TYMPAN MEMB NOS Social History Tobacco Use Types Packs/Day Years Used Date Smoking Tobacco: Never Assessed Comments Unknown Sex and Gender Information Value Date Recorded Sex Assigned at Not on file Legal Sex Female 3:01 AM REVIEW SCHEDULING COORDINATOR Gender Identity Not on file Sexual Orientation Not on file documented as of this encounter Plan of Treatment Not on file documented as of this encounter Visit Diagnoses Diagnosis Unspecified conductive hearing loss- Primary Chronic mastoiditis Perforation of tympanic membrane, unspecified documented in this encounter Care Teams Scrap Carrier Relationship Specialty Start Date End Date Mau Terry MD [address] [place] [phone] PCP - General 02/28/06 07/12/14 documented as of this encounter
--- OUTSIDE RECORDS SUMMARY | 2024-11-26 17:01 | XMS_ITS | Encounter Summary ---
Author Organization [facility] Address [address] [place] [address] Care Team Providers Care Missile Inspector Name Role Phone Mau Terry MD Primary Care Provider [phone] Encounter Details Date Type Department Care Team (Late st Contact Info) Description 10/05/2000 Outpatient Historical [facility] Ear, Nose and Throat [address] [place] [address] [place] [address] Social History Tobacco Use Types Packs/Day Years Used Date Smoking Tobacco: Never Assessed Comments Unknown Sex and Gender Information Value Date Recorded Sex Assigned at Not on file Legal Sex Female 3:01 AM BEAUTY COUNSELOR Gender Identity Not on file Sexual Orientation Not on file documented as of this encounter Plan of Treatment Not on file documented as of this encounter Visit Diagnoses Not on filedocumented in this encounter Care Teams Missile Inspector Relationship Specialty Start Date End Date Mau Terry MD [address] [place] [phone] PCP - General 02/28/06 07/12/14 documented as of this encounter
--- OUTSIDE RECORDS SUMMARY | 2024-11-26 17:01 | XMS_ITS | Encounter Summary ---
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) Social History Tobacco Use Types Packs/Day Years Used Date Smoking Tobacco: Never Assessed Comments Unknown Sex and Gender Information Value Date Recorded Sex Assigned at Not on file Legal Sex Female 3:01 AM SPACE 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
--- OUTSIDE RECORDS SUMMARY | 2024-11-26 17:01 | XMS_ITS | Encounter Summary ---
Author Organization [facility] Address [address] [place] [address] Care Team Providers Care Visualizer Name Role Phone Mau Terry MD Primary Care Provider [phone] Encounter Details Date Type Department Care Team (Latest Contact Info) Description 03/01/2001 Outpatient Historical [facility] [address] [facility] [address] [place] [address] Bryanna Bui MD NO ADDRESS ON FILE SCREENING MAMM-MAILG NEOPL-OTHER (Primary Dx) Social History Tobacco Use Types Packs/Day Years Used Date Smoking Tobacco: Never Assessed Comments Unknown Sex and Gender Information Value Date Recorded Sex Assigned at Not on file Legal Sex Female 3:01 AM NETWORK INTERN Gender Identity Not on file Sexual Orientation Not on file documented as of this encounter Plan of Treatment Not on file documented as of this encounter Visit Diagnoses Diagnosis Other screening mammogram- Primary documented in this encounter Care Teams Visualizer Relationship Specialty Start Date End Date Mau Terry MD [address] [place] [phone] PCP - General 02/28/06 07/12/14 documented as of this encounter
--- OUTSIDE RECORDS SUMMARY | 2024-11-26 17:01 | XMS_ITS | Encounter Summary ---
Author Organization [employer] [facility] Address [address] Attn: [place] [address] Care Team Providers Care Bolt Sorter Name Role Phone Mua Terry MD Primary Care Provider [phone] Encounter Details Date Type Department Care Team (Late st Contact Info) Description 10/31/2000 Outpatient Historical Tano Meneses MD NO ADDRESS ON FILE Social History Tobacco Use Types Packs/Day Years Used Date Smoking Tobacco: Never Assessed Comments Unknown Sex and Gender Information Value Date Recorded Sex Assigned at Not on file Legal Sex Female 3:01 AM STRATEGIC PLANNING SPECIALIST Gender Identity Not on file Sexual Orientation Not on file documented as of this encounter Plan of Treatment Not on file documented as of this encounter Visit Diagnoses Not on filedocumented in this encounter Care Teams Bolt Sorter Relationship Specialty Start Date End Date Mau Terry MD [address] [place] [phone] PCP - General 02/28/06 07/12/14 documented as of this encounter
--- OUTSIDE RECORDS SUMMARY | 2024-11-26 17:01 | XMS_ITS | Encounter Summary ---
Author Organization [employer] [facility] Address [address] Attn: [place] [address] Care Team Providers Care Airport Operations Officer Name Role Phone Mau Terry MD Primary Care Provider [phone] Encounter Details Date Type Department Care Team (Late st Contact Info) Description 01/10/2000 Outpatient Historical Ruddy Calloway, Jonh Howell MD [address] [place] [address] Social History Tobacco Use Types Packs/Day Years Used Date Smoking Tobacco: Never Assessed Comments Unknown Sex and Gender Information Value Date Recorded Sex Assigned at Not on file Legal Sex Female 3:01 AM ANCILLARY SERVICES MANAGER Gender Identity Not on file Sexual Orientation Not on file documented as of this encounter Plan of Treatment Not on file documented as of this encounter Visit Diagnoses Not on filedocumented in this encounter Care Teams Airport Operations Officer Relationship Specialty Start Date End Date Mau Terry MD [address] [place] [phone] PCP - General 02/28/06 07/12/14 documented as of this encounter
--- OUTSIDE RECORDS SUMMARY | 2024-11-26 17:01 | XMS_ITS | Encounter Summary ---
Author Organization [facility] Address [address] [place] [address] Care Team Providers Care Plant Taxonomist Name Role Phone Mau Terry MD Primary Care Provider [phone] Encounter Details Date Type Department Care Team (Latest Contact Info) Description 02/13/2002 Outpatient Historical [facility] Head and Neck Surgery-[address] [place] [address] [place] [phone] Tenzin Vaughn [address] [place], [place] [address] CHRONIC MASTOIDITIS (Primary Dx); MALFUNC OTHER DEVICE/GRAFT Social History Tobacco Use Types Packs/Day Years Used Date Smoking Tobacco: Never Assessed Comments Unknown Sex and Gender Information Value Date Recorded Sex Assigned at Not on file Legal Sex Female 3:01 AM ARTISAN PLASTERER Gender Identity Not on file Sexual Orientation Not on file documented as of this encounter Plan of Treatment Not on file documented as of this encounter Visit Diagnoses Diagnosis Chronic mastoiditis- Primary Mechanical complication due to other implant and internal device, not elsewhere classified documented in this encounter Care Teams Plant Taxonomist Relationship Specialty Start Date End Date Mau Terry MD [address] [place] [phone] PCP - General 02/28/06 07/12/14 documented as of this encounter
--- OUTSIDE RECORDS SUMMARY | 2024-11-26 17:01 | XMS_ITS | Encounter Summary ---
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) Social History Tobacco Use Types Packs/Day Years Used Date Smoking Tobacco: Never Assessed Comments Unknown Sex and Gender Information Value Date Recorded Sex Assigned at Not on file 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
--- OUTSIDE RECORDS SUMMARY | 2024-11-26 17:01 | XMS_ITS | Encounter Summary ---
Author Organization [email or web address] Address [address] [place] [address] Care Team Providers Care Sales And Marketing Associate Name Role Phone Mau Terry MD Primary Care Provider [phone] Encounter Details Date Type Department Care Team (Latest Contact Info) Description 08/27/2000 Outpatient Historical [facility] Jonh Fox Jr., MD [address] [place] [address] Bronchitis, not specified as acute or chronic (Primary Dx); Other and unspecified chronic nonsuppurative otitis media Social History Tobacco Use Types Packs/Day Years Used Date Smoking Tobacco: Never Assessed Comments Unknown Sex and Gender Information Value Date Recorded Sex Assigned at Not on file 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
--- OUTSIDE RECORDS SUMMARY | 2024-11-26 17:01 | XMS_ITS | Encounter Summary ---
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
--- OUTSIDE RECORDS SUMMARY | 2024-11-26 17:01 | XMS_ITS | Encounter Summary ---
Author Organization [facility] Address [address] [place] [address] Care Team Providers Care Central Communications Specialist Name Role Phone Mau Terry MD Primary Care Provider [phone] Encounter Details Date Type Department Care Team (Latest Contact Info) Description 02/27/2002 Outpatient Historical [facility] Ear, Nose and Throat [address] [place] 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
--- OUTSIDE RECORDS SUMMARY | 2024-11-26 17:01 | XMS_ITS | Encounter Summary ---
Author Organization [facility] Address [address] [place] [address] Care Team Providers Care Brass Pickler Name Role Phone Mau Terry MD Primary Care Provider [phone] Encounter Details Date Type Department Care Team (Latest Contact Info) Description 05/10/2006 Outpatient [facility] Gastroenter[address] [place] [address] Frederick Choudhury MD [address] [place] [phone] Reflux Esophagitis (Primary Dx); Dysphagia Social History Tobacco Use Types Packs/Day Years Used Date Smoking Tobacco: Never Assessed Comments Unknown Sex and Gender Information Value Date Recorded Sex Assigned at Not on file 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
--- OUTSIDE RECORDS SUMMARY | 2024-11-26 17:01 | XMS_ITS | Encounter Summary ---
Author Organization [facility] Address [address] [place] [address] Care Team Providers Care Grey Inspector Name Role Phone Mau Terry MD Primary Care Provider [phone] Encounter Details Date Type Department Care Team (Latest Contact Info) Description 02/28/2006 Outpatient Historical [facility] Imaging Services [address] [place] [address] Mau Terry MD [address] [place] [phone] Encounters for Unspecified Administrative Purpose (Primary Dx) Social History Tobacco Use Types Packs/Day Years Used Date Smoking Tobacco: Never Assessed Comments Unknown Sex and Gender Information Value Date Recorded Sex Assigned at Not on file Legal Sex Female 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
--- OUTSIDE RECORDS SUMMARY | 2024-11-26 17:01 | XMS_ITS | Encounter Summary ---
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); Unspecified Essential Hypertension; Acute Esophagitis; Pain in Limb Social History Tobacco Use Types Packs/Day Years Used Date Smoking Tobacco: Never Assessed Comments Unknown Sex and Gender Information Value Date Recorded Sex Assigned at Not on file Legal Sex Female 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
--- OUTSIDE RECORDS SUMMARY | 2024-11-26 17:01 | XMS_ITS | Encounter Summary ---
Author Organization [facility] Address [address] [place] [address] Care Team Providers Care Professional Services Specialist Name Role Phone Mau Terry MD Primary Care Provider [phone] Encounter Details Date Type Department Care Team (Latest Contact Info) Description 07/18/2000 Outpatient Historical [facility] Ruddy Calloway, Jonh Howell MD [address] [place] [address] Chalazion (Primary Dx); Hypoactive sexual desire Social History Tobacco Use Types Packs/Day Years Used Date Smoking Tobacco: Never Assessed Comments Unknown Sex and Gender Information Value Date Recorded Sex Assigned at Not on file 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
--- OUTSIDE RECORDS SUMMARY | 2024-11-26 17:01 | XMS_ITS | Encounter Summary ---
Author Organization [facility] Address [address] [place] [address] Care Team Providers Care Blood Bank Booking Clerk Name Role Phone Mau Terry MD Primary Care Provider [phone] Encounter Details Date Type Department Care Team (Latest Contact Info) Description 02/03/2000 Outpatient Historical [facility] Dermatology- [facility] [place] [address] [place] [address] Bj Guzman MD NO ADDRESS ON FILE Other and unspecified malignant neoplasm of skin of other and unspecified parts of face (Primary Dx); Benign hayley skin trunk Social History Tobacco Use Types Packs/Day Years Used Date Smoking Tobacco: Never Assessed Comments Unknown Sex and Gender Information Value Date Recorded Sex Assigned at Not on file 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
--- OUTSIDE RECORDS SUMMARY | 2024-11-26 17:01 | XMS_ITS | Encounter Summary ---
Author Organization [facility] Address [address] [place] [address] Care Team Providers Care Seasonal Package Handler Name Role Phone Mau Terry MD Primary Care Provider [phone] Encounter Details Date Type Department Care Team (Latest Contact Info) Description 10/31/2000 Outpatient [facility] Facial Plastic Surgery- [address] [place] [address] Tano Meneses MD NO ADDRESS ON FILE Other and unspecified malignant neoplasm of skin of other and unspecified parts of face (Primary Dx) Social History Tobacco Use Types Packs/Day Years Used Date Smoking Tobacco: Never Assessed Comments Unknown Sex and Gender Information Value Date Recorded Sex Assigned at Not on file 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
--- OUTSIDE RECORDS SUMMARY | 2024-11-26 17:01 | XMS_ITS | Encounter Summary ---
Author Organization [facility] Address [address] [place] [address] Care Team Providers Care Salesperson Wigs Name Role Phone Mau Terry MD Primary Care Provider [phone] Encounter Details Date Type Department Care Team (Latest Contact Info) Description 05/01/2000 Outpatient [facility] Facial Plastic Surgery- [address] [place] [address] Tano Meneses MD NO ADDRESS ON FILE Other and unspecified malignant neoplasm of skin of other and unspecified parts of face (Primary Dx) Social History Tobacco Use Types Packs/Day Years Used Date Smoking Tobacco: Never Assessed Comments Unknown Sex and Gender Information Value Date Recorded Sex Assigned at Not on file Legal Sex Female 3:01 AM PATIENT ACCESS DIRECTOR Gender Identity Not on file Sexual Orientation Not on file documented as of this encounter Plan of Treatment Not on file documented as of this encounter Visit Diagnoses Diagnosis Other and unspecified malignant neoplasm of skin of other and unspecified parts of face- Primary documented in this encounter Care Teams Salesperson Wigs Relationship Specialty Start Date End Date Mau Terry MD [address] [place] [phone] PCP - General 02/28/06 07/12/14 documented as of this encounter
--- OUTSIDE RECORDS SUMMARY | 2024-11-26 17:01 | XMS_ITS | Encounter Summary ---
Author Organization [employer] [facility] Address [address] [place] [address] Care Team Providers Care Registered Nurse Behavioral Health Name Role Phone Mau Terry MD Primary Care Provider [phone] Encounter Details Date Type Department Care Team (Latest Contact Info) Description 06/24/2001 Outpatient Historical [facility] Brent Valladares MD [address] [place] [address] ACUTE URI NOS (Primary Dx) Social History Tobacco Use Types Packs/Day Years Used Date Smoking Tobacco: Never Assessed Comments Unknown Sex and Gender Information Value Date Recorded Sex Assigned at Not on file Legal Sex Female 3:01 AM RN SHIFT MGR Gender Identity Not on file Sexual Orientation Not on file documented as of this encounter Plan of Treatment Not on file documented as of this encounter Visit Diagnoses Diagnosis Acute upper respiratory infections of unspecified site- Primary documented in this encounter Care Teams Registered Nurse Behavioral Health Relationship Specialty Start Date End Date Mau Terry MD [address] [place] [phone] PCP - General 02/28/06 07/12/14 documented as of this encounter
--- OUTSIDE RECORDS SUMMARY | 2024-11-26 17:01 | XMS_ITS | Encounter Summary ---
Author Organization [facility] Address [address] [place] [address] Care Team Providers Care Operator Cavity Pump Name Role Phone Mau Terry MD Primary Care Provider [phone] Encounter Details Date Type Department Care Team (Latest Contact Info) Description 01/13/2000 Outpatient Historical [facility] Jonh Fox Jr., MD [address] [place] [address] Attention to dressings and sutures (Primary Dx) Social History Tobacco Use Types Packs/Day Years Used Date Smoking Tobacco: Never Assessed Comments Unknown Sex and Gender Information Value Date Recorded Sex Assigned at Not on file 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
--- OUTSIDE RECORDS SUMMARY | 2024-11-26 17:01 | XMS_ITS | Encounter Summary ---
Author Organization [facility] Address [address] [place] [address] Care Team Providers Care Instructor Ballroom Dancing Name Role Phone Mau Terry MD Primary Care Provider [phone] Encounter Details Date Type Department Care Team (Latest Contact Info) Description 10/04/2000 Outpatient Historical [facility] Jonh Fox Jr., MD [address] [place] [address] Other and unspecified malignant neoplasm of skin of other and unspecified parts of face (Primary Dx); Unspecified sleep apnea Social History Tobacco Use Types Packs/Day Years Used Date Smoking Tobacco: Never Assessed Comments Unknown Sex and Gender Information Value Date Recorded Sex Assigned at Not on file 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
--- OUTSIDE RECORDS SUMMARY | 2024-11-26 17:01 | XMS_ITS | Encounter Summary ---
Author Organization [facility] Address [address] [place] [address] Care Team Providers Care Choirmaster Name Role Phone Mau Terry MD Primary Care Provider [phone] Encounter Details Date Type Department Care Team (Latest Contact Info) Description 12/09/1999 Outpatient Historical [facility] Jonh Fox Jr., MD [address] [place] [address] General symptoms NEC (Primary Dx); Hypoactive sexual desire; Pure hypercholesterolem Social History Tobacco Use Types Packs/Day Years Used Date Smoking Tobacco: Never Assessed Comments Unknown Sex and Gender Information Value Date Recorded Sex Assigned at Not on file 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
--- OUTSIDE RECORDS SUMMARY | 2024-11-26 17:01 | XMS_ITS | Encounter Summary ---
Author Organization [facility] Address [address] [place] [address] Care Team Providers Care Early Education Teacher Name Role Phone Mau Terry MD Primary Care Provider [phone] Encounter Details Date Type Department Care Team (Latest Contact Info) Description 02/13/2002 Outpatient Historical [facility] Ear, Nose and Throat [address] [place] [address] [place] [address] Tenzin Vaughn [address] [place] [address] CHRONIC MASTOIDITIS (Primary Dx); MALFUNC OTHER DEVICE/GRAFT Social History Tobacco Use Types Packs/Day Years Used Date Smoking Tobacco: Never Assessed Comments Unknown Sex and Gender Information Value Date Recorded Sex Assigned at Not on file Legal Sex Female 3:01 AM COLLECTIONS CURATOR Gender Identity Not on file Sexual Orientation Not on file documented as of this encounter Plan of Treatment Not on file documented as of this encounter Visit Diagnoses Diagnosis Chronic mastoiditis- Primary Mechanical complication due to other implant and internal device, not elsewhere classified documented in this encounter Care Teams Early Education Teacher Relationship Specialty Start Date End Date Mau Terry MD [address] [place] [phone] PCP - General 02/28/06 07/12/14 documented as of this encounter
--- OUTSIDE RECORDS SUMMARY | 2024-11-26 17:01 | XMS_ITS | Encounter Summary ---
Author Organization [facility] Address [address] [place] [address] Care Team Providers Care Weigher And Charger Name Role Phone Mau Terry MD Primary Care Provider [phone] Encounter Details Date Type Department Care Team (Latest Contact Info) Description 07/05/2001 Outpatient [facility] Facial Plastic Surgery- [address] [place] [address] Tano Meneses MD NO ADDRESS ON FILE UNCERTAIN BEHAV NEOPL SKIN (Primary Dx) Social History Tobacco Use Types Packs/Day Years Used Date Smoking Tobacco: Never Assessed Comments Unknown Sex and Gender Information Value Date Recorded Sex Assigned at Not on file 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
--- OUTSIDE RECORDS SUMMARY | 2024-11-26 17:01 | XMS_ITS | Encounter Summary ---
Author Organization [facility] Address [address] [place] [address] Care Team Providers Care Equine Breeder Name Role Phone Mau Terry MD Primary Care Provider [phone] Encounter Details Date Type Department Care Team (Latest Contact Info) Description 07/11/2001 Outpatient Historical [facility] Ruddy Calloway, Jonh Howell MD [address] [place] [address] ACTINIC KERATOSIS (Primary Dx) Social History Tobacco Use Types Packs/Day Years Used Date Smoking Tobacco: Never Assessed Comments Unknown Sex and Gender Information Value Date Recorded Sex Assigned at Not on file 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
--- OUTSIDE RECORDS SUMMARY | 2024-11-26 17:01 | XMS_ITS | Encounter Summary ---
Author Organization [facility] Address [address] [place] [address] Care Team Providers Care Ludlow Machine Operator Name Role Phone Mau Terry MD Primary Care Provider [phone] Encounter Details Date Type Department Care Team (Latest Contact Info) Description 01/02/2002 Outpatient Historical [facility] Jonh oFx Jr., MD [address] [place] [address] CHR SEROUS OM SIMP/NOS (Primary Dx); PERFORAT TYMPAN MEMB NOS Social History Tobacco Use Types Packs/Day Years Used Date Smoking Tobacco: Never Assessed Comments Unknown Sex and Gender Information Value Date Recorded Sex Assigned at Not on file 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
--- OUTSIDE RECORDS SUMMARY | 2024-11-26 17:01 | XMS_ITS | Encounter Summary ---
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
--- OUTSIDE RECORDS SUMMARY | 2024-11-26 17:01 | XMS_ITS | Encounter Summary ---
Author Organization [facility] Address [address] [facility] Attn: [place] [address] Care Team Providers Care Owner Spa Director Name Role Phone Mau Terry MD Primary Care Provider [phone] Encounter Details Date Type Department Care Team (Late st Contact Info) Description 02/13/2002 Outpatient Historical Tenzin Vaughn [address] [place] [address] Social History Tobacco Use Types Packs/Day Years Used Date Smoking Tobacco: Never Assessed Comments Unknown Sex and Gender Information Value Date Recorded Sex Assigned at Not on file 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
--- OUTSIDE RECORDS SUMMARY | 2024-11-26 17:01 | XMS_ITS | Encounter Summary ---
Author Organization [facility] Address [address] [place] [address] Care Team Providers Care Dry Cell Assembly Supervisor Name Role Phone Mau Terry MD Primary Care Provider [phone] Encounter Details Date Type Department Care Team (Late st Contact Info) Description 01/02/2002 Outpatient Historical [facility] Ear, Nose and Throat [address] [place] 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
--- OUTSIDE RECORDS SUMMARY | 2024-11-26 17:01 | XMS_ITS | Encounter Summary ---
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 (Primary Dx); Follow-up examination, following unspecified surgery Social History Tobacco Use Types Packs/Day Years Used Date Smoking Tobacco: Never Assessed Comments Unknown Sex and Gender Information Value Date Recorded Sex Assigned at Not on file 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
--- OUTSIDE RECORDS SUMMARY | 2024-11-26 17:01 | XMS_ITS | Encounter Summary ---
Author Organization [facility] Address [address] [place] [address] Care Team Providers Care Telegraphic Typewriter Mechanic Name Role Phone Mau Terry MD Primary Care Provider [phone] Encounter Details Date Type Department Care Team (Latest Contact Info) Description 01/15/2002 Outpatient Historical [facility] Ear, Nose and Throat [address] [place] 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
--- OUTSIDE RECORDS SUMMARY | 2024-11-26 17:01 | XMS_ITS | Encounter Summary ---
Author Organization [facility] Address [address] [facility] Attn: [place] [address] Care Team Providers Care Senior Vice President And Chief Information Officer Name Role Phone Mau Terry MD Primary Care Provider [phone] Encounter Details Date Type Department Care Team (Late st Contact Info) Description 03/01/2001 Outpatient Historical Ruddy Calloway, Jonh Howell MD [address] [place] [phone] Social History Tobacco Use Types Packs/Day Years Used Date Smoking Tobacco: Never Assessed Comments Unknown Sex and Gender Information Value Date Recorded Sex Assigned at Not on file 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
--- OUTSIDE RECORDS SUMMARY | 2024-11-26 17:01 | XMS_ITS | Encounter Summary ---
Author Organization [facility] Address [address] [place] [address] Care Team Providers Care Fruit Or Nut Crops Farm Manager Name Role Phone Mau Terry MD Primary Care Provider Encounter Details Date Type Department Care Team (Latest Contact Info) Description 01/30/2001 Outpatient Historical [facility] Jonh Fox Jr., MD [address] [place] [address] Obesity, unspecified (Primary Dx); Other seborrheic keratosis; Unspecified essential hypertension Social History Tobacco Use Types Packs/Day Years Used Date Smoking Tobacco: Never Assessed Comments Unknown Sex and Gender Information Value Date Recorded Sex Assigned at Not on file Legal Sex Female 3:01 AM DIRECTOR OF BANDS Gender Identity Not on file Sexual Orientation Not on file documented as of this encounter Plan of Treatment Not on file documented as of this encounter Visit Diagnoses Diagnosis Obesity, unspecified- Primary Other seborrheic keratosis Unspecified essential hypertension documented in this encounter Care Teams Fruit Or Nut Crops Farm Manager Relationship Specialty Start Date End Date Mau Terry MD [address] [phone] PCP - General 02/28/06 07/12/14 documented as of this encounter
--- OUTSIDE RECORDS SUMMARY | 2024-11-26 17:01 | XMS_ITS | Encounter Summary ---
Author Organization [facility] Address [address] [place] [address] Care Team Providers Care Assistant Professor Of Forestry Name Role Phone Mau Terry MD Primary Care Provider [phone] Encounter Details Date Type Department Care Team (Latest Contact Info) Description 05/14/2002 Outpatient Historical [facility] Ear, Nose and Throat [address] [place] 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
--- OUTSIDE RECORDS SUMMARY | 2024-11-26 17:01 | XMS_ITS | Encounter Summary ---
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
--- OUTSIDE RECORDS SUMMARY | 2024-11-26 17:01 | XMS_ITS | Encounter Summary ---
Author Organization [facility] Address [address] [place] [address] Care Team Providers Care Schedule Clerk Name Role Phone Mau Terry MD Primary Care Provider [phone] Encounter Details Date Type Department Care Team (Late st Contact Info) Description 02/24/1998 Outpatient Historical [facility] Card[facility] [address] [place] [address] Obed Mejia MD [address] [facility] [address] [place] [address] Painful respiration (Primary Dx); Palpitations Social History Tobacco Use Types Packs/Day Years Used Date Smoking Tobacco: Never Assessed Comments Unknown Sex and Gender Information Value Date Recorded Sex Assigned at Not on file 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
--- OUTSIDE RECORDS SUMMARY | 2024-11-26 17:02 | XMS_ITS | Clinical Summary ---
Author Organization [facility], [facility] Address [address] [place] [address] Phone Care Team Providers Care Freight Flow Sales Leader Name Role Phone Jose Bah Primary Care Provider [phone] Allergies Active Allergy Reactions Criticality Noted Date [...] Encounters Date Type Department Care Team Description 11/24/2024 Telephone [facility] [address] [place] [address] Tae Rosales MD 11/20/2024 Documentation Only [facility] [address] [place] [address] Ana Laura Fam MA 11/10/2024 Documentation Only [facility], [facility] [address] [place] [phone] Elizabeth Rodriguez 11/10/2024 Telephone [facility], [facility] [address] [place] [address] Tae Rosales MD 11/04/2024 Documentation Only [facility], [facility] [address] [place] [phone] Ana Laura Fam MA 10/30/2024 Documentation Only [facility], [facility] [address] [place] [phone] Ana Laura Fam MA 10/28/2024 Telephone [facility], [facility] [address] [place] [phone] Tae Rosales MD 08/28/2024 12:50 PM CDT Office Visit [facility], [facility] [address] [place] [address] Tae Rosales MD Chronic kidney disease stage [...] 08/28/2024 1:22 PM CDT Plan of Treatment Health Maintenance Due Date Last Done Comments Breast Cancer Screening 1955 Colorectal Cancer Screening: Annual FOBT 2006 Colorectal Cancer Screening: Colonoscopy 2006 Colorectal Cancer Screening: Sigmoidoscopy 2006 Pneumococcal Vaccine: 50+ Years (2 of 2 - PCV) 03/28/2007 03/28/2006 Diabetes: Ophthalmology Exam 12/07/2023 04/21/2013, 05/05/2011 Diabetes: Pedal Pulse Checked 12/07/2023 Diabetes: Sensory Foot Exam 12/07/2023 Diabetes: Visual Foot Exam 12/07/2023 Influenza Vaccine (#1) 2024 7, 01/06/2016, 02/06/2014, Additional history exists Diabetes: Hemoglobin A1C 02/17/2025 11/17/2024, 06/21 Hepatitis B Vaccine Aged Out No longe r eligible based on patient's age to complete this topic Procedures Procedure Name Priority Date/Time Associated Diagnosis Comments POST CHEMISTRY Routine 11/24/2024 URINE CLEARANCE Routine 11/24/2024 PATIENT INFORMATION Routine 11/24/2024 PHOSPHOLIPASE A2 RECEPTOR ANTIBODIES, SERUM Routine 10/17/2024 [...] CDT from Last 3 Months Results * (ABNORMAL) URINE CLEARANCE (11/24/2024) Urea Nitrogen, Urine Timed 355 mg/dL [facility] Urea Nitrogen, Urine 24 Hr 1.8(L) 12.0 - 20.0 g/24 hr [facility] Creatinine, Urine Timed 83.5 mg/dL [facility] Creatinine, 24H Ur 0.4(L) 0.5 - 1.6 g/24 hr [facility] 11/24/2024 11/25/2024 12: 20 PM CDT Narrative [facility]25[facility]24 Unless otherwise specified, test(s) performed at: [facility], [address] [place], [place] [id number] RIB CUTTER: Bernard Milan M.D. For any questions, please call customer service at FREQUENCY:MONTHLY Resulting Agency Comment Specimen source: Urine Tae Rosales MD LAB URINE ORDERABLES Final Result [facility] See order comments or contact performing lab Unknown, [place] * POST CHEMISTRY (11/24/2024) BUN Post Dialysis 9 6 - 19 mg/dL [facility] 11/24/2024 11/26/2024 11: 52 AM CDT Narrative [facility] - 11/26/2024 Unless otherwise specified, test(s) performed at: [facility], [address] [place] [id number] RIB CUTTER: Bernard Milan M.D. For any questions, please call customer service at FREQUENCY:MONTHLY Resulting Agency Comment Specimen source: Plasma Tae Rosales MD LAB BLOOD ORDERABLES Final Result [facility] See order comments or contact performing lab Unknown, [place] * PATIENT INFORMATION (11/24/2024) Patient Weight 86.3 [facility] Patient Height 160.0 [facility] Amputee Status NO [facility] Amputee Parts NONE [facility] Urine Volume 500 [facility] Collection Interval, Ur 24.0 [facility] 11/24/2024 11/24/2024 Narrative [facility] - 11/25/2024 Unless otherwise specified, test(s) performed at: [facility], [address] [place] [address] RIB CUTTER: Bernard Milan M.D. For any questions, please call customer service at FREQUENCY:MONTHLY Resulting Agency Comment Specimen source: PD Fluid Tae Rosales MD LAB BLOOD ORDERABLES Final Result [facility] See order comments or contact performing lab Unknown, [place] * Calcitriol (1,25 di-OH Vitamin D) (10/17/2024 8:43 AM CDT) Pathologist [facility] Calcitriol(1,25 di-OH Vit D) 9 L 18 - 72 pg/mL VITAMIN D 9 pg/mL Vitamin D2 125 (OH)2 <8 pf/mL Blood 10/17/2024 8:43 AM CDT Narrative Ana Laura Fam MA - 11/04/2024 8:48 AM CDT [facility] [address] [place] [address] Aps External Provider LAB BLOOD ORDERABLES Final Result * ANCA (10/17/2024 8:43 AM CDT) ANCA Negative Blood Venous blood / Unknown 10/17/2024 8:43 AM CDT Ana Laura Charles MA - 11/04/2024 8:48 AM CDT [address] [address] [facility] External Provider LAB BLOOD ORDERABLES Final Result * [place] light chain free, serum (10/17/2024 8:43 AM CDT) [facility] [place] Free Light Chain 101.4 Lambda Free Light Chain 66.9 [place]/Lambda Light Chains Free w/Ratio, Urine 1.52 Blood Venous blood / Unknown 10/17/2024 8:43 AM CDT Ana Laura Charles MA - 11/04/2024 8:53 AM CDT [address] [address] [facility] External Provider LAB BLOOD ORDERABLES Final Result * PE+INTERP(RFX AAKASH+FLC), S (10/17/2024 8:43 AM CDT) [facility] Immunofixation Normal Pattern Comment:No Monoclonal protei ns detected. 10/17/2024 8:43 AM CDT Ana Laura Charles MA - 11/04/2024 8:48 AM CDT [address] [address] [facility] External Provider LAB BLOOD ORDERABLES Final Result * LEEANN Screen (10/17/2024 8:43 AM CDT) [facility] LEEANN Screen Negative Blood 10/17/2024 8:43 AM CDT Ana Laura Charles MA - 11/04/2024 8:48 AM CDT [facility] [address] [place] [address] [facility] External Provider LAB BLOOD ORDERABLES Final Result * Phospholipase A2 Receptor Antibodies, Serum (10/17/2024 8:43 AM CDT) PLA2R Frozen if, Renal <4 RU/mL Blood Venous blood / Unknown 10/17/2024 8:43 AM CDT Ana Laura Charles MA - 11/04/2024 8:48 AM CDT [facility] [address] [place] [address] [facility] External Provider LAB BLOOD ORDERABLES Final Result * Protein electrophoresis, serum (10/17/2024 8:43 AM CDT) Pathologist [facility] Total Protein, Serum 5.7 Albumin (Blood) 2.5 g/dL Sizsp-8-Oqgilrg n 0.4 Vbpkh-1-Jeiamwp n 1.1 Beta 1 Globlin 0.3 Beta 2 Globulin 0.4 Gamma Globulin in Serum 0.4 Blood Venous blood / Unknown 10/17/2024 8:43 AM CDT David Fam Ana LauraPURVI - 11/04/2024 8:48 AM CDT [facility] [address] [place] [address] [facility] External Provider LAB BLOOD ORDERABLES Final Result from Last 3 Months Insurance [place] MCR Adv ([id number]) Care Teams Freight Flow Sales Leader Relationship Specialty Start Date End Date Jose Bah [address] [place] [address] PCP - General 12/07/23
--- OUTSIDE RECORDS SUMMARY | 2024-11-26 17:02 | XMS_ITS | Patient Health Record ---
Author Organization [facility] Address [address] [place], [place] [id number] Care Team Providers Care Senior Instructor Name Role Phone Kevin GUADALUPE, Godfrey Primary Care Provider Coy Rodriguez MD, Sourav [facility] [phone] Allergies Allergen (clinical drug ingredient) Drug/Non Drug [...] W/U Status Risk Notes Problem Solitary sacroiliitis (754883319) Sacroiliitis, not elsewhere classified (M46.1) Active confirmed Problem Low back pain (069658133) Low back pain (M54.5) Active confirmed Problem Lumbosacral spondylosis without myelopathy (40358646) Spondylosis without myelopathy or radiculopathy, lumbar region (M47.816) Active confirmed Problem High risk drug monitoring status (759505009) alf (current) use of opiate analgesic (Z79.891) Active confirmed Problem Anxiety disorder (441447836) Other specified anxiety disorders (F41.8) Active confirmed Problem Hypersomnia (68212514) Hypersomnia, unspecified (G47.10) Active confirmed Problem Acquired spondylolisthesis (583545509) Spondylolisthesis , lumbar region (M43.16) Active confirmed Problem Spinal stenosis of lumbar region (02444265) Spinal stenosis, lumbar region (M48.06) Active confirmed Problem Radiculopathy due to lumbar intervertebral disc disorder (931277891108284) Intervertebral disc disorders with radiculopathy, lumbar region (M51.16) Active confirmed Problem Pain in left leg (817453244) Pain in left leg (M79.605) Active confirmed Problem Long-term current use of drug therapy (137923266) Other assisted (current) drug therapy (Z79.899) Active confirmed Problem Neurogenic claudication (067688808) Spinal stenosis, lumbar region with neurogenic claudication (M48.062) Active confirmed Plan Of Treatment No Information Insurance Providers Payer Name Payer Address Payer Phone Subscriber Number Group Number Insured Name Patient Relationship to Insured Coverage Start Date Coverage End Date [facility] [address] [place] [phone] [id number] Sandra Lemus Self - patient is the [...] thrown from horse, 2003 UTI, treated at [facility], 04/2017
--- OUTSIDE RECORDS SUMMARY | 2024-11-26 17:02 | XMS_ITS | Encounter Summary ---
Author Organization [facility] Address [address] [place] [address] Phone Care Team Providers Care Post Doctoral Fellow Name Role Phone Jose Bah Primary Care Provider [phone] Encounter Details Date Type Department Care Team (Late st Contact Info) Description 12/07/2023 Orders Only [facility] [address] [place] [address] Type 2 diabetes mellitus with [...] (HCC) documented in this encounter Care Teams Post Doctoral Fellow Relationship Specialty Start Date End Date Jose Bah [address] [place] [address] [address] [place] [address] PCP - General 12/07/23 documented as of this encounter
--- NOTE | 2024-11-26 17:08 | CTR_ITS ---
PROCEDURE INFORMATION: Exam: CT Head Without Contrast Exam date and time: 11/26/2024 5:19 PM Age: 69 years old Clinical indication: Injury or trauma; Fall; Blunt trauma (contusions or hematomas); Consciousness not specified; Additional info: Fall/head injury TECHNIQUE: Imaging protocol: Computed tomography of the head without contrast. Radiation optimization: All CT scans at this facility use at least one of these dose optimization techniques: automated exposure control; mA and/or kV adjustment per patient size (includes targeted exams where dose is matched to clinical indication); or iterative reconstruction. COMPARISON: MR cervical spin wo con* [id number] 09/22/2022 2:04 PM RADIATION DOSE METRICS: Total DLP (mGy-cm): 1103.78 FINDINGS: Brain: Right frontal and temporal encephalomalacia. Periventricular and subcortical white matter low-density bilaterally. No acute intracranial hemorrhage. No mass effect. Cerebral ventricles: No ventriculomegaly. Paranasal sinuses: Visualized sinuses are unremarkable. No fluid levels. Mastoid air cells: Visualized mastoid air cells are well aerated. Bones: Unremarkable. No acute fracture. Soft tissues: There is a large right parietal scalp hematoma. CT/CT head wo con* [id number] IMPRESSION: 1. Acute intracranial abnormality. 2. Right frontal and temporal encephalomalacia. 3. Large right parietal scalp hematoma.
--- NOTE | 2024-11-26 17:10 | ED_ITS ---
HPI - Fall General: Chief Complaint: Fall Stated Complaint: fall on head Time Seen by Provider: 11/26/24 17:07 Source: patient Mode of arrival: ambulatory Limitations: no limitations History of Present Illness: 69-year-old female states that she was w alking in a parking lot with her walker and she tripped and fell. She states she did hit her head on the sidewalk does have a hematoma to posterior scalp she has a headache denies any loss consciousness states she has had some slight blurry vision. She denies any neck pain denies any hip pain. Associated symptoms-after fall: Reports headache(s); Denies abdominal pain, chest pain or neck pain Related Data Home Medications ?Medication ?Instructions ?Recorded ?Confirmed gabapentin 100 mg capsule 100 mg PO BID PRN nerve pain 08/05/24 11/11/24 magnesium 250 mg tablet 250 mg PO DAILY 08/05/24 Previous Rx's ?Medication ?Instructions ?Recorded semaglutide 2 mg/dose (8 mg/3 mL) 2 mg (0.75 mL) SUBCU T .weekly #3 mL 05/31/23 subcutaneous pen injector ([employer]) Held on 11/05/24. Instructions: see pcp rollaid walker with seat #1 ea 08/05/24 ezetimibe 10 mg tablet 10 mg PO DAILY #90 tabs 08/21 06/17 omeprazole 40 mg capsule,delayed 40 mg PO BID #120 cap s 10/15/24 release amlodipine 5 mg tablet 5 mg PO DAILY #30 tabs 10/28 clopidogrel 75 mg tablet 75 mg PO DAILY #90 tabs 12/15 isosorbide mononitrate 30 mg 30 mg PO DAILY #30 tabs 0 10/28/24 tablet,extended release 24 hr nitroglycerin 0.4 mg sublingual 0.4 mg sublingual Q5M PRN Chest 10/28/24 tablet Pain #25 tabs apixaban 5 mg tablet (Eliquis) 2.5 mg (1/2 x 5 mg) PO 11/05/24 BID@0900,2100 #60 tabs bumetanide 1 mg tablet 1 mg PO DAILY #30 tabs 11/05 ergocalciferol (vitamin D2) 1,250 50,000 unit PO Q7D # 3 caps 07/16/25 mcg (50,000 unit) capsule (Vitamin D2) hydralazine 10 mg tablet 10 mg PO TID #90 tabs insulin glargine 100 unit/mL (3 5 unit (0.05 mL) SUBCU T QPM #3 mL 11/05/24 mL) subcutaneous pen (Lantus Solostar U-100 Insulin) insulin lispro 100 unit/mL See Rx Instructions .Route 11/05/24 subcutaneous solution (Humalog .COMPLEX 30 days #10 mL U-100 Insulin) metoprolol tartrate 50 mg tablet 25 mg (1/2 x 50 mg) P O 11/05/24 BID@0900,2100 #60 tabs potassium chloride 10 mEq 10 meq PO DAILY #30 caps capsule,extended release Allergies Allergy/AdvReac Type Severity Reaction Status Date / Time sitagliptin (From Januvia) Allergy Unknown Unknown Verified 11/26/24 16:58 empagliflozin (From Allergy Unknown Verified 11/26/24 16:58 Jardiance) Review of Systems Const: Denies: fever(s), chills, body aches or change in appetite Eyes: Denies: eye discomfort ENMT: Denies: throat pain or dental pain Card: Denies: chest pain Resp: Denies: dyspnea GI: Denies: abdominal pain, nausea, vomiting or diarrhea Musc: Denies: neck pain or back pain Skin/Breast: Denies: rash Neuro: Reports: headache(s) [facility] ED PFSH: Medical History Transfusion of blood product declined due to mosque reason Cervical stenosis of spinal canal Lumbar stenosis with neurogenic claudication Lumbar disc disease with radiculopathy CKD (chronic kidney disease), stage IV CKD stage 3b, GFR 30-44 ml/min Diabetic nephropathy Squamous cell carcinoma of skin Nephrolithiasis History of ovarian cancer Chronic back pain Stage 3a chronic kidney disease (CKD) HLD (hyperlipidemia) Insulin dependent diabetes mellitus Essential hypertension Obesity Surgical History History of carpal tunnel release History of decompression of ulnar nerve H/O: hysterectomy Social History Smoking and tobacco/nicotine status: never used tobacco/nicotine Second hand smoke exposure: No Alcohol intake: current Alcohol intake frequency: few times a month Substance/Drug Use: never Additional social history: She wants full code as discussed with Tenzin and myself 10/17/2024 by Derian Hsieh MD Caregiver/support person: No Lives independently: No Household members: spouse Marital status: Number of children: 1 service: No Current occupational status: unemployed Current occupational exposures/hazards: No 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 Pets and animals: No Do you think of yourself as: Straight/Heterosexual Current gender identity: Female Physical Exam Const: COMMON NORMALS: no acute distress, patient oriented x3 and healthy appearing HENMT: COMMON NORMALS: normocephalic HEAD & SCALP: normocephalic OTHER: Posterior scalp hematoma Eye: COMMON NORMALS: Equal, round and reactive pupils present and EOMs intact bilaterally PUPIL: Yes Equal, round and reactive pupils present Neck/C-Spine: COMMON NORMALS: full ROM and supple CERVICAL SPINE: Yes cervical ROM normal and No Cervical spine tenderness Chest: COMMONS NORMALS: normal inspection of the chest Resp: COMMON NORMALS: normal respiratory effort, No retractions, No use of accessory muscles and clear to auscultation bilaterally AUSCULTATION: clear to auscultation bilaterally Cardio: COMMON NORMALS: regular rate, regular rhythm and No murmurs present (Cardio) RATE: regular rate RHYTHM: regular rhythm GI: COMMON NORMALS: Normal to inspection, nondistended, normoactive bowel sounds present, Soft to palpation, non-tender and no masses PALPATION: Yes Soft to palpation Extremity: COMMON NORMALS: normal to inspection and full ROM Neuro: COMMON NORMALS: patient oriented x3, moves all extremities and no focal motor deficits Psych: COMMON NORMALS: mental status grossly normal, Normal thought process present and cooperative THOUGHT PROCESS: Normal thought process present Skin: COMMON NORMALS: no rashes or lesions noted and no wounds GENERAL SKIN EXAM: no rashes or lesions noted Course Vital Signs: Vital signs: Vital Signs Temperature 98.3 F 11/26/24 16:56 Pulse Rate 109 H 11/26/24 16:56 Respiratory Rate 18 11/26/24 16:56 Blood Pressure 121/86 11/26/24 16:56 Pulse Oximetry 95 11/26/24 16:56 Oxygen Delivery Me thod Room Air 11/26/24 16:56 MDM - Fall Medical Decision Making Patient presents with closed head injury from a fall CT shows no signs of fracture or bleed she has been well-appearing here no signs of neck injury she stable for discharge follow-up PCP return if worsening Medical Records I reviewed the patient's medical records. Lab Data Radiology Impressions Head CT 11/26/24 17:08 IMPRESSION: 1. Acute intracranial abnormality. 2. Right frontal and temporal encephalomalacia. 3. Large right parietal scalp hematoma. All radiology interpretation(s) finalized by discharge Discharge Plan Discharge Patient Disposition: Home Clinical Impression: Closed head injury, Fall Condition: Stable Prescriptions: No Action Ozempic 2 mg/dose (8 mg/3 mL) pen injector 2 mg SUBCUT .weekly Qty: 3 3RF Rx Instructions: Sunday magnesium 250 mg tablet 250 mg PO DAILY gabapentin 100 mg capsule 100 mg PO BID PRN (Reason: nerve pain) (DME) rollaid walker with seat See Rx Instructions .Route .MEDSUPPLY Qty: 1 0RF Rx Instructions: As directed ezetimibe 10 mg tablet 10 mg PO DAILY Qty: 90 1RF omeprazole 40 mg capsule,delayed release(DR/EC) 40 mg PO BID Qty: 120 1RF isosorbide mononitrate 30 mg Tablet Extended Release 24 Hr 30 mg PO DAILY Qty: 30 0RF clopidogrel 75 mg Tablet 75 mg PO DAILY Qty: 90 0RF amlodipine 5 mg Tablet 5 mg PO DAILY Qty: 30 0RF nitroglycerin 0.4 mg Tablet, Sublingual 0.4 mg sublingual Q5M PRN (Reason: Chest Pain) Qty: 25 0RF hydralazine 10 mg Tablet 10 mg PO TID Qty: 90 0RF metoprolol tartrate 50 mg Tablet 25 mg PO BID@0900,2100 Qty: 60 0RF Eliquis 5 mg Tablet 2.5 mg PO BID@0900,2100 Qty: 60 0RF bumetanide 1 mg tablet 1 mg PO DAILY Qty: 30 0RF potassium chloride 10 mEq capsule, extended release 10 meq PO DAILY Qty: 30 0RF ergocalciferol (vitamin D2) [Vitamin D2] 1,250 mcg (50,000 unit) Capsule 50,000 unit PO Q7D Qty: 3 0RF insulin glargine [Lantus Solostar U-100 Insulin] 100 unit/mL (3 mL) insulin pen 5 unit SUBCUT QPM Qty: 3 0RF insulin lispro [Humalog U-100 Insulin] 100 unit/mL Solution See Rx Instructions .ROUTE .COMPLEX 30 Days Qty: 10 0RF Rx Instructions: WM & Bedtime: Mod Dose Regimen 141-180 mg/dl 4 units/SQ 181-220 mg/dl 6 units/SQ 221-260 mg/dl 8 units/SQ 261-300 mg/dl 10 units/SQ 301-350 mg/dl 12 units/SQ 351-400 mg/dl 14 units/SQ greater than 400 mg/dl call doctor Discharge Orders: Discharge ED (Routine); Ordered 11/26/24 Ordered By: Christian Whiet Referrals: Jose Bah MD [Primary Care Provider, [facility]] Discharge Diet: Advance as tolerated Discharge Activity: Resume usual activity Patient Instructions: Head Injury (ED) Print Language: Afghan Coding Level of Care Code ED Application Architect for Jan Mancuso
== END 2024-11-26 17:49 | disposition home or self-care (01) ==
PROVIDERS: Emergency Provider Emergency Medicine; PCP Family Medicine
DX: S09.8XXA Other specified injuries of head, initial encounter (principal); Z79.01 Long term (current) use of anticoagulants; Z79.02 Long term (current) use of antithrombotics/antiplatelets; Z79.4 Long term (current) use of insulin; Z85.828 Personal history of other malignant neoplasm of skin; I12.9 Hypertensive chronic kidney disease with stage 1 through stage 4 chronic kidney disease, or unspecified chronic kidney disease; N18.31 Chronic kidney disease, stage 3a; E11.22 Type 2 diabetes mellitus with diabetic chronic kidney disease; Z85.43 Personal history of malignant neoplasm of ovary; W01.198A Fall on same level from slipping, tripping and stumbling with subsequent striking against other object, initial encounter
CPT/HCPCS: 70450; 99284

== ENCOUNTER 2024-12-10 07:26 | Outpatient (CLI) | payer MEDICARE, SELFPAY ==
--- NOTE | 2024-12-10 07:30 | CT_ITS ---
WS: [id number] CT HEAD NONCONTRAST HISTORY: R90.89 - Other abnormal findings on diagnostic imaging of... TECHNIQUE: Contiguous axial imaging performed through the brain. Bone and soft tissue windows. Sagittal and coronal reformats reviewed. All CT scans at [facility] use at least one of these dose optimization techniques: automated exposure control; mA and/or kV adjustment per patient size (includes targeted exams where dose is matched to clinical indication); or iterative reconstruction. DLP: 1079.48 mGy.cm COMPARISON: 11/26/2024 No acute intracranial hemorrhage, midline shift or mass effect. Mild cerebral atrophy. Focal area of encephalomalacia involving the RIGHT frontal lobe from prior remote infarct. Small lacunar infarct in the RIGHT basal ganglia. Additional encephalomalacia with volume loss RIGHT temporal lobe. Ventricles: Mildly prominent ventricles on the basis of volume loss and atrophy. No inferior displacement the cerebellar tonsils. Paranasal sinuses: As visualized are clear. Mastoid air cells: Prior RIGHT mastoidectomy. Small amount of soft tissue along the enlarged internal auditory canal. RIGHT inner ear ossicles are not identified. Stable since 11/26/2024. Calvarium and scalp: No skull fracture. There is a large posterior high RIGHT parietal scalp hematoma measuring 3.1 x 3.8 cm which has slightly improved in size and density. CT/CT head wo con* [id number] IMPRESSION: 1. No acute intracranial hemorrhage or edema. 2. No skull fracture. 3. Large persistent but improving high RIGHT parietal scalp hematoma. 4. 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 Small lacunar infarcts in the RIGHT basal ganglia.
== END 2024-12-10 07:27 | disposition home or self-care (01) ==
LOC: RAD 07:27
PROVIDERS: PCP Family Medicine; Visit Provider Specialist
DX: G93.89 Other specified disorders of brain (principal); R90.89 Other abnormal findings on diagnostic imaging of central nervous system; R42 Dizziness and giddiness; S09.90XS Unspecified injury of head, sequela; R26.81 Unsteadiness on feet; X58.XXXS Exposure to other specified factors, sequela
CPT/HCPCS: 70450

== ENCOUNTER → 2024-12-23 13:38 | Outpatient (BNVA) | payer MEDICARE, SELFPAY | PROVIDERS: PCP Family Medicine; Visit Provider Internal Medicine Cardiovascular Disease | DX: R05.3 Chronic cough (principal); I48.0 Paroxysmal atrial fibrillation; I25.10 Atherosclerotic heart disease of native coronary artery without angina pectoris; E11.22 Type 2 diabetes mellitus with diabetic chronic kidney disease; N18.4 Chronic kidney disease, stage 4 (severe); Z99.2 Dependence on renal dialysis; Z79.4 Long term (current) use of insulin; Z79.01 Long term (current) use of anticoagulants | CPT/HCPCS: 99204; 99214 ==